=== PATIENT | female | born 1965 | race Caucasian/White ===

== ENCOUNTER 2017-11-27 07:59 | Day surgery (SDC) | payer OTHER, SELFPAY ==
--- NOTE | 2017-11-26 18:22 | PCM.HP.BLA ---
History and Physical Date of Admission: 11/27/17 Referring Provider: Nikko Poole MD Primary Provider: Everton Acevedo DO CC: evaluation painful infected lipoma scar upper back/posterior neck with underlying hematoma. History of Present Illness: 52-year-old woman initially presented with a painful soft tissue mass on her upper back/posterior neck area that has increased in size over the last several months. She denies any trauma. Denies any recent infection. It is painful when she bumps it. She denies any recent fever. Due to its large size and its painful symptomatology, operative excision was recommended which was done on 09/23/17. Postop she developed persistent redness and swelling and pain in the scar area. Clinically it appeared she may have a small seroma present. She continued her Cleocin. She was sent for Ultrasound guided drainage of the possible seroma. About 18 ml was removed. Some improvement was noted. Fluid was sent for culture which showed MRSE. It was sensitive to Levaquin and resistant to Cleocin. The Cleocin was stopped and she will be starting Levaquin. However her symptomatology persisted. Another Ultrasound guided drainage was recommended. However the second time, they could not appreciate any drainable fluid at this time. There was a suggestion of a hematoma. I recommended to the patient, that the conservative measures weren't healing the incision up quick enough. There was concern that the hematoma would become infected so operative drainage was recommended. Past Medical History: seasonal allergies arthritis asthma Bladder - OAB breast lump or cyst cataract carpal tunnel syndrome depression gastrointestinal problems headaches/migraines hearing problems hives recurrent infections IBS osteoarthritis pneumonia polycystic ovary vision problems psoriasis bloating mass on neck spinal stenosis - multiple back issues leg weakness infected seroma upper back and posterior back pain toward the left chest wall. painful infected hematoma upper back/posterior neck Past Surgical History: deviated septum adenoids, tonsils 1975 bilateral breast reduction 2013 complete hysterectomy with BSO 2015 holes drilled in sinus turbinates 2015 bilateral carpal tunnel 2016 cataract L & R, l toric lens replacement 2016 radiofrequency ablation 2017 09/23/17 - Excision 8 cm painful soft tissue mass upper back/posterior neck. MEDICATIONS: Albuterol. Ventolin. Vitamin B12. Colace. Calcium. Fluticasone. Myrbetriq. Diclofenac. Taltz. Baclofen. Premarin. Lyrica. Budeprion. Linzess. Carvedilol. Fluoxetine. Wellbutrin. Remeron. ALLERGIES: Nabumetone. Dust. Thimerosal. Smoke. Percocet. Naproxen. Family History Summary: Father (biol.) - Has Family History of Hypertension Mother (biol.) - Has Family History of Arthritis Mother (biol.) - Has Family History of Hypertension Mother (biol.) - Has Family History of Other Cancer PGF - Has Family History of Alcoholism PGM - Has Family History of Alcoholism MGF - Has Family History of Depression MGF - Has Family History of Psychiatric Care MGF - Has Family History of Other Cancer MGM - Has Family History of Osteoporosis MGF - Has Family History of Stroke/CVA Aunt - Has Family History of Diabetes Brother (full) - Has Family History of Alcoholism General Comments - FH: severe allergies positive for skin cancer severe allergies Social History: Reviewed history and no changes required: patient does not smoke. patient does not drink alcohol. Risk Factors: Smoked Tobacco Use: Never smoker Smokeless Tobacco Use: Never Passive smoke exposure: no Drug use: no HIV high-risk behavior: no Caffeine use: 0 drinks per day Alcohol use: no Exercise: yes Type of Exercise: swim and walking Seatbelt use: 100 % Sun Exposure: frequently Family History Risk Factors: Family History of PA in females < 65 years old: no Family History of PA in males < 55 years old: no Dietary Counseling: yes Review of Systems General-denies fever and weight loss. Has some fatigue. Ear nose and throat-has chronic sinus problems. Denies nasal congestion. Denies sore throat. Eyes-denies eye pain. Has cataracts. Endocrine-denies excessive thirst or urination. Skin-had recent excision soft tissue mass in her upper back/posterior neck area. Has a family history of skin cancer. Now has persistent redness and pain over the incision. Ultrasound guided drainage was done and the fluid removed was sent for culture. It showed KALEN and her antbiotics were changed to Levaquin. Musculoskeletal-has joint pain, joint stiffness, weakness of muscles and joints, back pain, and arthritis. Neurologic-has headaches. Cardiovascular-denies chest pain. Has some fatigue. Denies shortness of breath with exertion. Psychiatric-denies anxiety. Has depression. Respiratory-has some shortness of breath. His chronic cough. Has obstructive sleep apnea. Has asthma. Has history of pneumonia. Gastrointestinal-denies nausea, vomiting, and diarrhea. Has constipation. Hematologic-denies abnormal bruising. Denies bleeding. Genitourinary-has urinary frequency. Denies hematuria. Has incontinence. Vital Signs: Patient Profile: 51 Years Old Female Height: 63.75 inches Weight: 260.6 pounds BMI: 45.08 BSA: 2.18 Physical Exam: General-well developed, well nourished, in no acute distress. HEENT-pupils equal round reactive to light. Extraocular muscles intact. Throat is clear. No suspicious lesions noted. Neck-supple, nontender. No cervical adenopathy. Lungs-clear to auscultation. Heart-regular rate and rhythm. Abdomen-soft and nondistended. Extremities-full range of motion. No axillary adenopathy. No suspicious lesions noted. Back-no bony tenderness. There is a vertical scar in the upper back near the posterior neck. Residual redness seen. No fluctuance. No purulent drainage noted. Mild tenderness to palpation. Midline scar measures about 10 cm and extends onto the posterior neck. Neuro-cranial nerves II through XII grossly intact. Assessment and Plan Assessment 1. Painful infected lipoma scar upper back/posterior neck. 2. Infected hematoma upper back/posterior neck. 3. Family history of skin cancer. 4. MRSE. Plan Recommend incision and drainage and excisional debridement on this painful infected hematoma upper back/posterior neck area. Will leave the wound open and proceed initially with a Betadine dressing. The VAC can be applied the next day. Also I may use Zhanna absorbable hemostat to minimize seroma formation during the time of surgery as well. We will also place a compression dressing as well. Surgery will be done under general anesthesia with a surgical observation overnight stay in the hospital. The patient was informed of the risks and complications of the procedure including alternatives to surgery. These were discussed with the patient personally. The patient voices understanding and wishes to proceed. Some of the risks and complications were included in a form from the [employer] [employer].
[2017-11-27] VITALS (15 sets, daily range): BP systolic 110–156; BP diastolic 53–96; PULSE 60–94; RESP 16–20; TEMP 36.1–37.4; O2SAT 71–100; BMI 41.4
--- NOTE | 2017-11-27 09:25 | MISC_PTH ---
PATIENT: GAY SHAFER LOC: [facility] [place] U#:[id number] AGE/SX: 52/F ROOM: RE11/27/[address]: Dr. Bonilla Alvarez MD : 1965 BED: DIS: 11/29/2017 SPEC #: [id number] RECD: 11/28/17 10:35 STATUS: CURTIS EDI #: [id number] ISRAEL: 11/27/17 09:[address]: Bonilla Alvarez DEPT: SURGICAL PATHOLOGY RECD BY: Nikko Bo ENTERED: 11/28/17 13:03 SP TYPE: [facility] [place] OTHR DR: Dr. Everton Acevedo DO Tissues: TISSUE SURGICALLY REMOVED Procedures: Special Stain Group I Surgery Specimen Level IV AFB Stain (control) GMS Stain (control) HEADER OPERATION: I & D, excisional debridement hematoma, posterior thorax PRE-OP DIAGNOSIS: Infected hematoma scar upper back/posterior neck TISSUE SUBMITTED: Infected hematoma scar upper back/posterior neck MICROSCOPIC DIAGNOSIS Hematoma/scar of back-posterior neck, excision: Granulation, fibrinoid material, acute and chronic inflammation and fibrosis. Negative for acid-fast bacilli and fungal organisms. Foreign body giant cell reaction to polarizable material. AM:cait 12/01/17 GROSS DIAGNOSIS AFB and GMS stains with matched controls were used in the evaluation of this case. MICROSCOPIC DESCRIPTION Slides are reviewed. GROSS DESCRIPTION Received in fixative is one container labeled with the patient's name and designated infected hematoma. The specimen consists of three irregular and indurated fragments of pink-yellow fibrofatty tissue. The larger fragment contains an ellipse of skin measuring 10 x 2 cm and containing a well-healed scar. Serial sections do not reveal mass lesions. Lace Mender sections are submitted in two cassettes. / AM:cait 11/28/17 TC:2 CPT: 29584, 97564 x2
--- NOTE | 2017-11-27 10:50 | OP.PN_ITS ---
Immediate Post-Op Note Date of Procedure: 11/27/17 Primary Surgeon/Physician: Bonilla Alvarez construction or leak gang laborer: None Pre-Operative Diagnosis: 1. Painful infected lipoma scar upper back/posterior neck. 2. Infected hematoma upper back/posterior neck. 3. Family history of skin cancer. 4. MRSE. Post-Operative Diagnosis: Same. Surgery/Procedure Performed:: Surgical preparation upper back/posterior neck with incision and drainage and excisional debridement infected hematoma (66 cm2) . Description of Surgical Findings:: 52-year-old woman initially presented with a painful soft tissue mass on her upper back/posterior neck area that has increased in size over the last several months. She denies any trauma. Denies any recent infection. It is painful when she bumps it. She denies any recent fever. Due to its large size and its painful symptomatology, operative excision was recommended which was done on . Postop she developed persistent redness and swelling and pain in the scar area. Clinically it appeared she may have a small seroma present. She continued her Cleocin. She was sent for Ultrasound guided drainage of the possible seroma. About 18 ml was removed. Some improvement was noted. Fluid was sent for culture which showed MRSE. It was sensitive to Levaquin and resistant to Cleocin. The Cleocin was stopped and she will be starting Levaquin. However her symptomatology persisted. Another Ultrasound guided drainage was recommended. However the second time, they could not appreciate any drainable fluid at this time. There was a suggestion of a hematoma. I recommended to the patient, that the conservative measures weren't healing the incision up quick enough. There was concern that the hematoma would become infected so operative drainage was recommended. Today the patient underwent surgical preparation upper back/posterior neck with incision and drainage and excisional debridement infected hematoma (66 cm2). Size of defect upper back - 11 x 6 x 5 cm. Estimated Blood Loss: 50 ml. Specimen's removed: 1. Infected hematoma upper back/posterior neck to Pathology and Microbiology. 2. Infected hematoma upper back/posterior neck MRSA DNA PCR swab culture. Drains: None. Type of Anesthesia:: General - Admit VTE Documentation VTE Present on Admission: No VTE Mechan Device Prophylaxis: SCD's VTE Pharm Prophylaxis ordered?: No
[2017-11-27 13:09] LABS: M R Staph aureus DNA By PCR Negative (Negative); Probe Check PASS; Specimen Processing Control PASS; Staph aureus DNA By PCR NEGATIVE (Negative)
[2017-11-27] MEDS: Baclofen 10 MG Tablet PO ×2 (14:02→16:30)
[2017-11-27] MEDS: Pregabalin 50 MG Capsule PO ×2 (14:02→21:04)
[2017-11-27] MEDS: HYDROmorphone 2 MG TABLET PO (14:28)
[2017-11-27] MEDS: Diclofenac 75 MG Tablet PO (16:30)
--- NOTE | 2017-11-27 16:35 | CPS ---
PT BROUGHT OWN BIPAP , R.T. SET THIS UP FOR PT.
--- NOTE | 2017-11-27 18:18 | PCM.OPRPT ---
Report of Operation Date of Procedure: 11/27/17 Pre-Operative Diagnosis: 1. Painful infected lipoma scar upper back/posterior neck. 2. Infected hematoma upper back/posterior neck. 3. Family history of skin cancer. 4. MRSE. Post-Operative Diagnosis: Same. Surgery/Procedure Performed:: Surgical preparation upper back/posterior neck with incision and drainage and excisional debridement infected hematoma (66 cm2). Description of Surgical Findings:: 52-year-old woman initially presented with a painful soft tissue mass on her upper back/posterior neck area that has increased in size over the last several months. She denies any trauma. Denies any recent infection. It is painful when she bumps it. She denies any recent fever. Due to its large size and its painful symptomatology, operative excision was recommended which was done on 09/23/17. Postop she developed persistent redness and swelling and pain in the scar area. Clinically it appeared she may have a small seroma present. She continued her Cleocin. She was sent for Ultrasound guided drainage of the possible seroma. About 18 ml was removed. Some improvement was noted. Fluid was sent for culture which showed MRSE. It was sensitive to Levaquin and resistant to Cleocin. The Cleocin was stopped and she will be starting Levaquin. However her symptomatology persisted. Another Ultrasound guided drainage was recommended. However the second time, they could not appreciate any drainable fluid at this time. There was a suggestion of a hematoma. I recommended to the patient, that the conservative measures weren't healing the incision up quick enough. There was concern that the hematoma would become infected so operative drainage was recommended. The patient was informed of the risks and complications of the procedure including alternatives to surgery. These were discussed with the patient personally. The patient voices understanding and wishes to proceed. Some of the risks and complications were included in a form from the [employer]. Size of defect upper back - 11 x 6 x 5 cm. 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 Infected hematoma upper back/posterior neck to Pathology and Microbiology. 2. Infected hematoma upper back/posterior neck MRSA DNA PCR swab culture. Drains: None. Estimated Blood Loss (mL): 50 ml. Description of Procedure: Patient was taken to OR in supine position and was placed under general anesthesia. She was then placed in the prone position as her upper back and posterior neck were prepped and draped in the usual fashion. SCD's were placed for DVT prophylaxis. Perioperative antibiotics were given intravenously. The previous incision was infiltrated with xylocaine with epinephrine. After waiting 5 minutes for the anesthetic to take effect, I proceeded with incision and drainage through the skin until the hematoma cavity was seen. There was a small residual hematoma present with some milky tissue present suggestive of infection. A lot of scar tissue present in the form of a postop capsule was sharply debrided and excised. Some residual seroma fluid was also present and drained. Some of the tissue was sent to Microbiology for culture. A positive culture may necessitate antibiotic modification. A swab culture was also taken as a DNA PCR to check for MRSA. The rest of the tissue was sent to Pathology for analysis to rule out carcinoma. The wound was irrigated with saline. Hemostasis was obtained with electrocautery. The size of the wound after incision and drainage and excisional debridement of this infected hematoma was 11 x 6 x 5 cm. The wound was dressed with Mepitel nonadherent dressing followed by Kerlix gauze with Betadine followed by dry Kerlix gauze and ABD pads for a compression dressing. Patient tolerated the procedure well and was sent to PACU in satisfactory condition. She will be sent upstairs for a surgical observation overnight stay in the hospital. The VAC will be placed tomorrow. When she is tolerating po analgesia and after the VAC is approved, she can then go home. [facility] She will be sent home on antibiotics and pain medication. If there is a plateau in the healing process, can proceed with delayed closure with skin grafting. Grafts/Implants Used: None. - Complications None. - Admit VTE Documentation VTE Present on Admission: No VTE Mechan Device Prophylaxis: SCD's VTE Pharm Prophylaxis ordered?: No Code Visit Surgery Charges CPT - 10175 ICD-10 - L76.31, T81.4xxA, D17.1, Z80.8 57262 L76.31, T81.4xxA, D17.1, Z80.8
[2017-11-27] MEDS: Budesonide Respules 0.5 MG/2 ML AMPUL.NEB. INHALATION (19:16)
[2017-11-27] MEDS: Albuterol 2.5 MG/3 ML VIAL.NEB. INHALATION (19:16)
[2017-11-27] MEDS: Mirtazapine 15 MG Tablet 22.5 MG PO (21:05)
[2017-11-28] VITALS (9 sets, daily range): BP systolic 108–136; BP diastolic 63–85; PULSE 71–90; RESP 16–21; TEMP 36.6–37; O2SAT 95–99
[2017-11-28] MEDS: Pregabalin 50 MG Capsule PO ×3 (05:08→22:10)
[2017-11-28 07:00] LABS: Hemoglobin 9.7 g/dl (12.0-15.0); Mean Corp Hgb Conc 30.3 g/gl (32-36); Mean Corpuscular Hgb 29.4 pg (27.0-32.0); Mean Platelet Vol. 10.6 fl (6.2-12.0); Platelet Count 235 K/mm3 (150-450); RBC Distribution Width SD 47.7 fl (35.1-43.9); White Blood Count 5.8 K/mm3 (4.4-11.0)
[2017-11-28 07:11] LABS: Scan Indicated on CBC? Y/N NO
[2017-11-28 07:20] LABS: Anion Gap 9 (5-15); BUN 20 mg/dL (7-18); BUN/Creat Ratio 26.3 RATIO (10-20); Calcium,Total 7.8 mg/dL (8.5-10.1); Chloride 109 mmol/L (98-107); Creatinine, Serum 0.76 mg/dL (0.55-1.02); EST Glomerular Filtration Rate 85 mL/min (>60); Est Glom Filt Rate - Afr Amer 102 mL/min (>60); Estimated Creatinine Clearance 83.25 ml/min; Glucose 93 mg/dL (70-110); Potassium 4.1 mmol/L (3.5-5.1); Prealbumin 22.4 mg/dL (20.0-40.0); Sodium Level 143 mmol/L (136-145)
[2017-11-28] MEDS: Diclofenac 75 MG Tablet PO ×2 (07:45→16:31)
[2017-11-28] MEDS: Calcium Carb/Vitamin D 1 TABLET Tablet PO (07:46)
[2017-11-28] MEDS: FLUoxetine 20 MG Capsule 40 MG PO (07:46)
[2017-11-28] MEDS: Baclofen 10 MG Tablet PO ×3 (07:46→16:30)
[2017-11-28] MEDS: Pyridoxine HCl 100 MG Tablet PO (07:47)
[2017-11-28] MEDS: HYDROmorphone 2 MG TABLET PO ×2 (07:56→11:58)
--- NOTE | 2017-11-28 09:00 | NURSING ---
wound photo: mid upper back
[2017-11-28] MEDS: Budesonide Respules 0.5 MG/2 ML AMPUL.NEB. INHALATION ×2 (09:21→18:56)
[2017-11-28] MEDS: Albuterol 2.5 MG/3 ML VIAL.NEB. INHALATION ×3 (09:21→18:55)
[2017-11-28] MEDS: Mirabegron 25 MG TAB.ER.24H PO (09:49)
--- NOTE | 2017-11-28 13:20 | PCM.RX.CS ---
Subjective/Objective Date: 11/28/17 Time: 13:20 Antibiotic: Vancomycin Type of Consult: New start Indications for Therapy: Skin/Soft Tissue Labs: Sodium 143 mmol/L (136-145) 11/28/17 05:54 Potassium 4.1 mmol/L (3.5-5.1) 11/28/17 05:54 Chloride 109 mmol/L (98-107) H 11/28/17 05:54 Carbon Dioxide 25.0 mmol/L (21.0-32.0) 11/28/17 05:54 Anion Gap 9 (5-15) 11/28/17 05:54 BUN 20 mg/dL (7-18) H 11/28/17 05:54 Creatinine 0.76 mg/dL (0.55-1.02) 11/28/17 05:54 Est GFR (MDRD) Af Amer 102 mL/min (>60) 11/28/17 05:54 Est GFR (MDRD) Non-Af 85 mL/min (>60) 11/28/17 05:54 BUN/Creatinine Ratio 26.3 RATIO (10-20) H 11/28/17 05:54 Glucose 93 mg/dL (70-110) 11/28/17 05:54 Pharmacy Plan for Drug Dosing: Goal vancomycin trough 10-15 mcg/mL. Recommend vancomycin 1250mg IV q12h after 1500mg IV loading dose for est trough 12 mcg/mL. Check prior to 5th dose. Pharmacy Service will continue to monitor and adjust dosing as required. Pharmacy to order these labs: Trough - Vancomycin Labs to be done on (date): 11/30/17 Labs to be done (time): 10:00
--- NOTE | 2017-11-28 13:36 | CASEMGMT ---
IRMA GOLDSMITH received notice that patient will be needing HHC for Wound Vac dressing changes. IRMA GOLDSMITH spoke with patient regarding HHC and preferred HHC company. IRMA GOLDSMITH provided list of HHC companies in network with her insurance. Patient stated her choice for HHC is [facility]. Confirmed with wound nurse that start of care would need to be on Friday for 1st wound vac dressing change. IRMA GOLDSMITH sent a referral to [facility] and am awaiting call back for acceptance. IRMA GOLDSMITH will continue to follow this patient and plan for safe discharge.
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
--- NOTE | 2017-11-28 17:19 | OP.PCM_ITS ---
Report of Operation Date of Procedure: 11/27/17 Pre-Operative Diagnosis: 1. Painful infected lipoma scar upper back/posterior neck. 2. Infected hematoma upper back/posterior neck. 3. Family history of skin cancer. 4. MRSE. Post-Operative Diagnosis: Same. Surgery/Procedure Performed:: Surgical preparation upper back/posterior neck with incision and drainage and excisional debridement infected hematoma (66 cm2) . Description of Surgical Findings:: 52-year-old woman initially presented with a painful soft tissue mass on her upper back/posterior neck area that has increased in size over the last several months. She denies any trauma. Denies any recent infection. It is painful when she bumps it. She denies any recent fever. Due to its large size and its painful symptomatology, operative excision was recommended which was done on . Postop she developed persistent redness and swelling and pain in the scar area. Clinically it appeared she may have a small seroma present. She continued her Cleocin. She was sent for Ultrasound guided drainage of the possible seroma. About 18 ml was removed. Some improvement was noted. Fluid was sent for culture which showed MRSE. It was sensitive to Levaquin and resistant to Cleocin. The Cleocin was stopped and she will be starting Levaquin. However her symptomatology persisted. Another Ultrasound guided drainage was recommended. However the second time, they could not appreciate any drainable fluid at this time. There was a suggestion of a hematoma. I recommended to the patient, that the conservative measures weren't healing the incision up quick enough. There was concern that the hematoma would become infected so operative drainage was recommended. The patient was informed of the risks and complications of the procedure including alternatives to surgery. These were discussed with the patient personally. The patient voices understanding and wishes to proceed. Some of the risks and complications were included in a form from the [employer] [employer]. Size of defect upper back - 11 x 6 x 5 cm. 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 Infected hematoma upper back/posterior neck to Pathology and Microbiology. 2. Infected hematoma upper back/posterior neck MRSA DNA PCR swab culture. Drains: None. Estimated Blood Loss (mL): 50 ml. Description of Procedure: Patient was taken to OR in supine position and was placed under general anesthesia. She was then placed in the prone position as her upper back and posterior neck were prepped and draped in the usual fashion. SCD's were placed for DVT prophylaxis. Perioperative antibiotics were given intravenously. The previous incision was infiltrated with xylocaine with epinephrine. After waiting 5 minutes for the anesthetic to take effect, I proceeded with incision and drainage through the skin until the hematoma cavity was seen. There was a small residual hematoma present with some milky tissue present suggestive of infection. A lot of scar tissue present in the form of a postop capsule was sharply debrided and excised. Some residual seroma fluid was also present and drained. Some of the tissue was sent to Microbiology for culture. A positive culture may necessitate antibiotic modification. A swab culture was also taken as a DNA PCR to check for MRSA. The rest of the tissue was sent to Pathology for analysis to rule out carcinoma. The wound was irrigated with saline. Hemostasis was obtained with electrocautery. The size of the wound after incision and drainage and excisional debridement of this infected hematoma was 11 x 6 x 5 cm. The wound was dressed with Mepitel nonadherent dressing followed by Kerlix gauze with Betadine followed by dry Kerlix gauze and ABD pads for a compression dressing. Patient tolerated the procedure well and was sent to PACU in satisfactory condition. She will be sent upstairs for a surgical observation overnight stay in the hospital. The VAC will be placed tomorrow. When she is tolerating po analgesia and after the VAC is approved, she can then go home. She [facility]. She will be sent home on antibiotics and pain medication. If there is a plateau in the healing process, can proceed with delayed closure with skin grafting. Grafts/Implants Used: None. - Complications None. - Admit VTE Documentation VTE Present on Admission: No VTE Mechan Device Prophylaxis: SCD's VTE Pharm Prophylaxis ordered?: No Code Visit Surgery Charges CPT - 53029 ICD-10 - L76.31, T81.4xxA, D17.1, Z80.8 10077 L76.31, T81.4xxA, D17.1, Z80.8
--- NOTE | 2017-11-28 17:47 | PCM.PN.SRG ---
Subjective: Postop #1 Patient has wound pain and increased pain from the suction from the VAC. Still needs IV analgesia. - Physical Exam General: Alert, Oriented x3 HEENT: PERRLA, EOMI Neck: Supple Lungs: Clear to auscultation Cardiovascular: Regular rate, Regular Rhythm Abdomen: Soft, Non-Distended Extremities: No clubbing, No cyanosis, No edema Skin: Ulcer/ Wound - upper back/posterior neck wound stable. No bleeding seen. VAC applied. Quite painful. Neurological: Cranial nerves II-XII grossly intact Psych/Mental Status: Normal Affect, Appropriate Vital Signs Temp Pulse Resp BP Pulse Ox 98.4 F 90 21 H 136/84 H 99 11/28/17 11:53 11/28/17 15:36 11/28/17 15:36 11/28/17 11:53 11/28/17 11:53 Oxygen Flow Rate 4 Oxygen Delivery Method Room Air Weight: 264 lb 8.875 oz Body Mass Index (BMI) 41.4 Intake and Output for Last 24 Hours 11/26/17 11/27/17 11/28/17 23:59 23:59 23:59 Intake Total 2972 / 2972 657 / 657 Balance 2972 / 2972 657 / 657 Microbiology Past 72 Hours 11/27/17 11:10 Gram Stain - Final Wound - Other Wound Culture - Preliminary No growth-Final to follow 11/27/17 11:10 Gram Stain - Final Wound - Other Wound Culture - Preliminary No growth-Final to follow Laboratory Tests Past 24 Hrs 11/28/17 11/28/17 05:54 05:54 WBC 5.8 RBC 3.30 L Hgb 9.7 L Hct 32.0 L MCV 97.0 MCH 29.4 MCHC 30.3 L RDW 14.0 RDW Differential 47.7 H Plt Count 235 MPV 10.6 Sodium 143 Potassium 4.1 Chloride 109 H Carbon Dioxide 25.0 Anion Gap 9 BUN 20 H Creatinine 0.76 Estim Creat Clear Calc 83.25 Est GFR (MDRD) Af Amer 102 Est GFR (MDRD) Non-Af 85 BUN/Creatinine Ratio 26.3 H Glucose 93 Calcium 7.8 L Prealbumin 22.4 Assessment/Plan 1. Painful infected lipoma scar upper back/posterior neck. 2. Infected hematoma upper back/posterior neck, s/p I&D and debridement. 3. Family history of skin cancer. 4. MRSE. 5. Anemia of chronic disease, acute on chronic. VAC applied today. Quite painful. Still needs IV analgesia. Anticipate discharge tomorrow when tolerating po analgesia. Continue Vancomycin for the MRSE. Operative culture is pending. Prealbumin was 22.4. Encourage nutritional supplementation with protein to help the healing process. Hgb little low at 9.7. Anemia of chronic disease. Combination of some operative blood loss and IV dilution. Will send home on Iron supplements. Can followup with her PCP in 4 weeks for further evaluation. After discharge followup at the Wound Center.
[2017-11-28] MEDS: 0.9% NaCl Peripheral Flush Adult/Peds IV (20:38)
[2017-11-28] MEDS: Mirtazapine 15 MG Tablet 22.5 MG PO (22:11)
[2017-11-29] MEDS: 0.9% NaCl Peripheral Flush Adult/Peds IV ×2 (00:43→04:50)
[2017-11-29 04:30] VITALS: BP 134/59; PULSE 65; RESP 20; TEMP 36.6; O2SAT 98
[2017-11-29] MEDS: Pregabalin 50 MG Capsule PO ×2 (05:02→14:13)
[2017-11-29 07:10] VITALS: PULSE 80; RESP 16; O2SAT 97
[2017-11-29] MEDS: Budesonide Respules 0.5 MG/2 ML AMPUL.NEB. INHALATION (07:10)
[2017-11-29] MEDS: Albuterol 2.5 MG/3 ML VIAL.NEB. INHALATION ×3 (07:10→13:27)
[2017-11-29 07:37] LABS: Hematocrit 32.3 % (37-47); Hemoglobin 9.9 g/dl (12.0-15.0); Mean Corp Hgb Conc 30.7 g/gl (32-36); Mean Corpuscular Hgb 29.4 pg (27.0-32.0); Mean Corpuscular Volume 95.8 fL (81-99); Mean Platelet Vol. 10.2 fl (6.2-12.0); Platelet Count 228 K/mm3 (150-450); RBC Distribution Width CV 14.1 % (11.6-14.6); RBC Distribution Width SD 48.6 fl (35.1-43.9); Red Blood Count 3.37 M/mm3 (4.2-5.4); White Blood Count 4.8 K/mm3 (4.4-11.0)
[2017-11-29 07:51] LABS: Scan Indicated on CBC? Y/N NO
[2017-11-29 07:52] LABS: Anion Gap 6 (5-15); BUN 20 mg/dL (7-18); BUN/Creat Ratio 29.9 RATIO (10-20); Calcium,Total 7.9 mg/dL (8.5-10.1); Chloride 109 mmol/L (98-107); Creatinine, Serum 0.67 mg/dL (0.55-1.02); EST Glomerular Filtration Rate 98 mL/min (>60); Est Glom Filt Rate - Afr Amer 119 mL/min (>60); Estimated Creatinine Clearance 94.43 ml/min; Glucose 92 mg/dL (70-110); Potassium 4.2 mmol/L (3.5-5.1); Sodium Level 144 mmol/L (136-145)
[2017-11-29] MEDS: Diclofenac 75 MG Tablet PO (08:35)
[2017-11-29] MEDS: Baclofen 10 MG Tablet PO ×2 (08:36→12:33)
[2017-11-29] MEDS: Calcium Carb/Vitamin D 1 TABLET Tablet PO (08:36)
--- NOTE | 2017-11-29 10:08 | PN.SURG_ITS ---
Subjective: Postop #2 Patient is resting comfortably. Does have some periwound itching intermittently. She is tolerating po analgesia and is anxious to go home. - Physical Exam General: Alert, Oriented x3 HEENT: PERRLA, EOMI Neck: Supple Lungs: Clear to auscultation Cardiovascular: Regular rate, Regular Rhythm Abdomen: Soft, Non-Distended Skin: Ulcer/ Wound - upper back/posterior neck wound is stable. VAC in place. Minimal drainage in the canister. Neurological: Cranial nerves II-XII grossly intact Psych/Mental Status: Normal Affect, Appropriate Vital Signs Temp Pulse Resp BP Pulse Ox 97.8 F 80 16 134/59 H 97 11/29/17 04:30 11/29/17 07:10 11/29/17 07:10 11/29/17 04:30 11/29/17 07:10 Oxygen Flow Rate 4 Oxygen Delivery Method Room Air Weight: 264 lb 8.875 oz Body Mass Index (BMI) 41.4 Intake and Output for Last 24 Hours 11/27/17 11/28/17 11/29/17 23:59 23:59 23:59 Intake Total 2972 / 2972 707 / 707 313 / 313 Balance 2972 / 2972 707 / 707 313 / 313 Microbiology Past 72 Hours 11/27/17 11:10 Gram Stain - Final Wound - Other Wound Culture - Final No growth aerobically. 11/27/17 11:10 Gram Stain - Final Wound - Other Wound Culture - Final No growth aerobically. Laboratory Tests Past 24 Hrs 11/29/17 11/29/17 06:25 06:25 WBC 4.8 RBC 3.37 L Hgb 9.9 L Hct 32.3 L MCV 95.8 MCH 29.4 MCHC 30.7 L RDW 14.1 RDW Differential 48.6 H Plt Count 228 MPV 10.2 Sodium 144 Potassium 4.2 Chloride 109 H Carbon Dioxide 29.0 Anion Gap 6 BUN 20 H Creatinine 0.67 Estim Creat Clear Calc 94.43 Est GFR (MDRD) Af Amer 119 Est GFR (MDRD) Non-Af 98 BUN/Creatinine Ratio 29.9 H Glucose 92 Calcium 7.9 L Assessment/Plan 1. Painful infected lipoma scar upper back/posterior neck. 2. Infected hematoma upper back/posterior neck, s/p I&D and debridement. 3. Family history of skin cancer. 4. MRSE. 5. Anemia of chronic disease, acute on chronic. 6. Periwound itching. VAC in place. Minimal drainage in the canister. Tolerating po analgesia. Home Health to assist with the VAC three times per week at 150 mmHg continuous suction. Continue Vancomycin for the MRSE. Operative culture is pending. Will send home on Levaquin for 14 days (2 refills). Prealbumin was 22.4. Encourage nutritional supplementation with protein to help the healing process. Hgb stable at 9.9. Anemia of chronic disease. Combination of some operative blood loss and IV dilution. Will send home on Iron supplements. Can followup with her PCP in 4 weeks for further evaluation. Wrote scripts for Dilaudid for pain (60 tabs) and for Valium for spasm (30 tabs) . Wrote script for Atarax for itching. Wrote script for Iron supplementation (30 tabs) and 2 refills. Wrote script for Phenergan for nausea (30 tabs) and a refill. Discharge home today. After discharge followup at the Wound Center.
--- NOTE | 2017-11-29 10:22 | PCM.DC ---
- Discharge Diagnoses Current Active Problems: Current Active and Chronic Problems (Last Updated 11/10/17 @ 14:38 by Bonilla Alvarez MD) Complication, postoperative infection (Acute) Open wound of back wall of thorax without penetration into thoracic cavity (Acute) Postoperative hematoma of subcutaneous tissue following dermatologic procedure (Acute) You will use the following diet at home:: No restrictions, Other - encourage nutritional supplementation with protein to help the healing process. Discharge Activity: May not drive while taking narcotic pain medications., May Shower - on the days the vac is changed., - - no heavy lifting. keep head elevated. May shower in (days): 2 - may shower on the days the vac is changed. May resume sexual activity in: No Restrictions Weight Bearing Status: Weight bearing as tolerated Lifting Restrictions: 20 lbs. Keep extremity elevated above heart level: - - elevate head. Additional Activity Instructions:: Home Health to assist with the vac changes three times per week at 150 mmHg continuous suction. May wash the wound and periwound with soap and water at the time of the vac dressing change. Call your doctor if your incision/area has: Continuous Slow Oozing, Sudden Increased Bleeding, Increased Pain/ Swelling, Increased Redness, Foul Smelling Discharge, Swelling at the incision site Call your doctor if you observe: Fever of 101 or Higher, Coldness, Increased Pain, Shortness of breath, Chest pain, Calf discomfort, Uncontrolled pain Suture Line Care: - - vac changes three times per week. Change Dressing in (Days):: 2 - vac changes three times per week. Cleanse incision/area with: Soap & Water - may cleanse the wound and periwound with soap and water at the time of the vac dressing change., - - may shower on the days the vac is changed. Allergies/Adverse Reactions: Allergies nabumetone Allergy (Verified 11/26/17 14:52) Hives thimerosal Allergy (Verified 11/26/17 14:52) Other PER ALLERGY TESTING acetaminophen [From Percocet] Adverse Reaction (Verified 11/26/17 14:52) Other naproxen [From Naprosyn] Adverse Reaction (Verified 11/26/17 14:52) Other oxycodone HCl [From Percocet] Adverse Reaction (Verified 11/26/17 14:52) Other Medications to take at Discharge Albuterol Aerosols [Ventolin Aerosols] 2.5 mg INHALATION Q2H PRN PRN 09/22/17 Albuterol Inhaler [Ventolin Hfa] 2 puff INHALATION Q4H PRN PRN 09/22/17 Baclofen [Lioresal] 10 mg PO TID 09/22/17 BuPROPion (SR) [Wellbutrin Sr] 150 mg PO BID 09/22/17 Calcium Carbonate/Vitamin D3 [Calcium 500-Vit D3 200 Tablet] 1 ea PO DAILY 09/22/17 Diclofenac Sodium 100 gm TP 4X/DAY 09/22/17 Diclofenac [Voltaren] 75 mg PO BIDCM 09/22/17 Econazole [Spectazole] 1 applic TOPICAL DAILY 09/22/17 Estrogens, Conjugated [Premarin] 0.9 mg PO DAILY 09/22/17 Fluoxetine [Prozac] 40 mg PO DAILY 09/22/17 Linaclotide [Linzess] 290 mcg PO DAILY 09/22/17 Mirabegron [Myrbetriq] 25 mg PO DAILY 09/22/17 Mirtazapine [Remeron] 22 mg PO QHS 09/22/17 Pregabalin [Lyrica] 50 mg PO TID 09/22/17 Pyridoxine HCl [Vitamin B-6] 100 mg PO DAILY 09/22/17 Fluticasone/Salmeterol [Advair 250/50 Mcg Diskus] 1 puff INHALATION BID 11/26/17 Albuterol Aerosols [Ventolin Aerosols] 2.5 mg INHALATION Q6HWA.RT vial.neb. 11/29/17 Budesonide Aerosol [Pulmicort Respules] 0.5 mg INHALATION Q12H.RT ampul.neb. 11/29/17 Diazepam [Valium] 5 mg PO 4X/DAY PRN PRN 7 Days #30 tab 11/29/17 Docusate Sodium [Colace] 100 mg PO BID capsule 11/29/17 HydrOXYzine [Atarax] 10 mg PO TID PRN PRN #60 tab 11/29/17 HydromorphONE [Dilaudid] 2 - 4 mg PO 4X/DAY PRN PRN 7 Days #60 tab 11/29/17 Iron Polysaccharide Complex [Ferrex 150] 150 mg PO DAILYCM #30 cap 11/29/17 Iron Polysaccharide Complex [Ferrex 150] 150 mg PO DAILYCM #30 cap 11/29/17 Lactobacillus Combo No.11 [Probiotic] 1 ea PO DAILY #60 cap.sprink 11/29/17 Levofloxacin [Levaquin] 500 mg PO DAILY #14 tab 11/29/17 ProMETHAzine [Phenergan] 25 mg PO 4X/DAY PRN PRN #30 tab 11/29/17 The following prescriptions were given: Diazepam [Valium] 5 mg PO 4X/DAY PRN PRN 7 Days #30 tab PRN Reason: Spasms HydromorphONE [Dilaudid] 2 - 4 mg PO 4X/DAY PRN PRN 7 Days #60 tab PRN Reason: Severe Pain (-08/12) HydrOXYzine [Atarax] 10 mg PO TID PRN PRN #60 tab PRN Reason: Itching Iron Polysaccharide Complex [Ferrex 150] 150 mg PO DAILYCM #30 cap Iron Polysaccharide Complex [Ferrex 150] 150 mg PO DAILYCM #30 cap Lactobacillus Combo No.11 [Probiotic] 1 ea PO DAILY #60 cap.sprink Levofloxacin [Levaquin] 500 mg PO DAILY #14 tab ProMETHAzine [Phenergan] 25 mg PO 4X/DAY PRN PRN #30 tab PRN Reason: NAUSEA/VOMITING Primary Care Physician: Everton Acevedo DO [Primary Care Provider] - Please follow up with your Primary Care Physician in: 4 weeks to evaluate her chronic anemia. Please Follow Up With: Bonilla Alvarez MD When: 2-3 weeks at the wound center. call [phone] for appt. Proposed Discharge Date: 11/29/17
[2017-11-29 10:30] VITALS: BP 123/63; PULSE 71; RESP 20; TEMP 36.8; O2SAT 96
[2017-11-29 10:50] VITALS: PULSE 85; RESP 18; O2SAT 96
[2017-11-29] MEDS: FLUoxetine 20 MG Capsule 40 MG PO (11:05)
[2017-11-29] MEDS: Docusate Sodium 100 MG Capsule PO (11:06)
[2017-11-29] MEDS: Pyridoxine HCl 100 MG Tablet PO (11:06)
[2017-11-29] MEDS: Mirabegron 25 MG TAB.ER.24H PO (11:06)
[2017-11-29 13:31] VITALS: PULSE 88; RESP 18
[2017-11-29 14:05] VITALS: BP 141/88; PULSE 85; RESP 20; TEMP 36.6; O2SAT 97
== END 2017-11-29 10:35 | disposition home health service (06) ==
LOC: SDC 08:00 → AC 08:02 → MS3 12:01
PROVIDERS: Family Provider Student in an Organized Health Care Education/Training Program; PCP Student in an Organized Health Care Education/Training Program; Visit Provider Surgery
PROC: (CPT 11000; principal; 2017-11-27 09:10)
DX: D17.1 Benign lipomatous neoplasm of skin and subcutaneous tissue of trunk (principal); L76.31 Postprocedural hematoma of skin and subcutaneous tissue following a dermatologic procedure; S21.209A Unspecified open wound of unspecified back wall of thorax without penetration into thoracic cavity, initial encounter; L08.9 Local infection of the skin and subcutaneous tissue, unspecified; Z80.8 Family history of malignant neoplasm of other organs or systems; J45.909 Unspecified asthma, uncomplicated; K21.9 Gastro-esophageal reflux disease without esophagitis; M19.90 Unspecified osteoarthritis, unspecified site; K58.9 Irritable bowel syndrome, unspecified; F32.9 Major depressive disorder, single episode, unspecified
CPT/HCPCS: 00300; 11000; 36415; 80048; 84134; 85027; 87070; 87075; 87102; 87205; 87206; 87640; 88305; 88312; 94640; 97802; J7040; J7050; J7120; A4216; J2405

== ENCOUNTER 2017-12-08 08:33 | Outpatient (RCR) | payer OTHER, SELFPAY ==
[2017-12-08 08:57] VITALS: BP 136/80; PULSE 90; RESP 20; TEMP 37.4; BMI 89.7
--- NOTE | 2017-12-08 18:05 | PCM.WC.PN ---
Type of Wound Date of Service: 12/08/17 Chief Complaint: Open surgical wound upper back/posterior neck. History of Wound: Surgery 11/27/17 - Surgical preparation upper back/posterior neck with incision and drainage and excisional debridement infected hematoma (66 cm2). Wound care - VAC. Operative culture - Negative. She was treated perioperatively with Levaquin and has finished them. Prealbumin from 11/28/17 was 22.4. She takes nutritional supplementation with protein to help the healing process. She has had some recent fungal rash around the wound. Probably from the VAC drape. She had some itching and was placed on Hydroxyzine. To improve the rash, she was given a Medrol dose pack. Will start her on Diflucan to help her symptomatology as well. She states her symptomatology is a little better. Progress of Wound: Recent surgery 11/27/17. - Physical Exam Vital Signs Temp Pulse Resp BP 99.3 F H 90 20 H 136/80 H 12/08/17 08:57 12/08/17 08:57 12/08/17 08:57 12/08/17 08:57 Debridement Note Post-Debridement Measurements/Treatment WC - Nurse 2 - General Ulcer CM Notes Start: 12/08/17 08:52 Freq: Status: Active Protocol: Activity Type Activity Date Activity User E-Sign Co-Sign Detail Recorded Client Recorded Date Recorded By Document 12/08/17 10:04 CHAPO [id number] 12/08/17 10:08 CHAPO 12/08/17 10:04 Wound Center Nurse 2 #1Upper Med Back -Time 10:04 -Correct Patient Yes -Correct Side, Site, Position Yes -Correct Procedure Yes -Procedure Performed Yes -Type of Procedure Debridement -Clinical Debridement Subcutaneous -Post Debridement Size (cm) - Length 10.5 -Post Debridement Size (cm) - Width 7 -Post Debridement Size (cm) - Depth 2.3 -Total Square Cm 73.5 -Wound/Ulcer Outcome Not Healed -Ulcer Cleansing Rinsed/ Irrigated with Saline -Foul Odor after Cleansing No -Bioengineered Tissue No -Cetacaine [place] No -Bleeding Controlled with Pressure -Treatment Response Procedure Tolerated Well Pain Scale: 0-10 Numeric Is Patient Pain Free? Yes Wound debrided: #1 Upper back/posterior neck. Laterality: Not Applicable Wound Grade/Stage: 2. Type of Debridement: Excisional debridement Anesthesia Used: 4% Lidocaine Solution Depth: Down to and including healthy tissue, in the subcutaneous layer Percentage of wound debrided: 100 Instrument Used: 7mm curette Tissue Removed: subcutaneous tissue. Severity: Fat Layer Exposed Amount of bleeding with debridement: Mild Bleeding Controlled with: Pressure Patient tolerated procedure well Assessment/Plan Assessment: 1. Open surgical wound upper back/posterior neck. 2. History of infected hematoma upper back/posterior neck. 3. s/p surgical preparation upper back/posterior neck with incision and drainage and excisional debridement infected hematoma (66 cm2). 4. Family history of skin cancer. 5. s/p excision 8 cm painful soft tissue mass upper back/posterior neck. Plan: Continue the VAC to the upper back/posterior neck wound. Will start Diflucan to help her fungal rash symptomatology. She states the symptomatology has improved. If the rash persists, can proceed with a VAC holiday. She is done with her perioperative Levaquin. The operative culture was negative. Her Prealbumin from 11/28/17 was 22.4. She takes nutritional supplementation with protein to help the healing process. Followup 2 weeks.
--- NOTE | 2017-12-09 17:01 | WC ---
Call received from patient in a.m. (9:30-jenny) and this afternoon about 1620 C/o severe pain to operative site where V.A.C. is in operation. Pain is 'uncontrolled'. Current pain medication of hydromorphone 2-4 mgm q4h prn. She stated skylar is only taking 4 mgm once a day due to driving. Itching is also a problem w/periwound skin secondary to occlusive drape. Extensive medication list reviewed. Instructed her to take 4 mgm hydromorphone as directed to get pain under control and to interspace Diazepam on the 'off hours'. Patient expressed concern of running out of pain medication, and would like to take a VAC Holiday. Will discuss case with her Professional Advisor in the morning and have her call back first thing in the morning.
== END 2017-12-31 23:59 ==
LOC: WC 08:33
PROVIDERS: Family Provider Student in an Organized Health Care Education/Training Program; PCP Student in an Organized Health Care Education/Training Program; Visit Provider Surgery
DX: S20.229A Contusion of unspecified back wall of thorax, initial encounter (principal); X58.XXXA Exposure to other specified factors, initial encounter; T81.4XXA Infection following a procedure, initial encounter; B99.8 Other infectious disease
CPT/HCPCS: 11042; 11045; 97606; 99213; G0463

== ENCOUNTER 2018-01-16 10:32 | Outpatient (RCR) | payer OTHER, SELFPAY | END 2018-01-31 23:59 | LOC: NS 10:32 | PROVIDERS: Family Provider Student in an Organized Health Care Education/Training Program; PCP Student in an Organized Health Care Education/Training Program; Visit Provider Student in an Organized Health Care Education/Training Program | DX: E66.01 Morbid (severe) obesity due to excess calories (principal); Z68.41 Body mass index [BMI] 40.0-44.9, adult | CPT/HCPCS: 97802 ==

== ENCOUNTER 2018-01-19 08:30 | Outpatient (RCR) | payer OTHER, SELFPAY ==
[2018-01-01 01:02] VITALS: BP 136/80; PULSE 90; RESP 20; TEMP 37.4; BMI 89.7
[2018-01-05 11:17] VITALS: BP 129/76; PULSE 86; RESP 18; TEMP 35; BMI 89.7
--- NOTE | 2018-01-05 22:23 | PN.PCM_ITS ---
Type of Wound Date of Service: 01/05/18 Chief Complaint: Nonhealing ulcer upper back/posterior neck. History of Wound: Surgery 11/27/17 - Surgical preparation upper back/posterior neck with incision and drainage and excisional debridement infected hematoma ( 66 cm2). Wound care - VAC holiday. Started Silver dressings. Operative culture - Negative. She was treated perioperatively with Levaquin and has finished them. Prealbumin from 11/28/17 was 22.4. She takes nutritional supplementation with protein to help the healing process. She has had some recent fungal rash around the wound. Probably from the VAC drape. She had some itching and was placed on Hydroxyzine. To improve the rash, she was given a Medrol dose pack. She was started on Diflucan to help her symptomatology as well. She states her symptomatology is a little better. Progress of Wound: Improved. - Physical Exam Vital Signs Temp Pulse Resp BP 95.0 F L 86 18 129/76 H 01/05/18 11:17 01/05/18 11:17 01/05/18 11:17 01/05/18 11:17 Wound Measurements and Assessment WC - Nurse 1 - General Ulcer Measurement Start: 01/05/18 11:17 Freq: Status: Active Protocol: Activity Type Activity Date Activity User E-Sign Co-Sign Detail Recorded Client Recorded Date Recorded By Document 01/05/18 11:17 DV [id number] 01/05/18 11:40 DV 01/05/18 11:17 Wound Center Nurse 1 [Ulcer Assessment] #1Upper Med Back -Combined with other wound No -Current Size (cm) - Length 6.8 -Current Size (cm) - Width 4.0 -Current Size (cm) - Depth 1.5 -Total Square Cm 27.20 -Date of Last Picture (Recall this 01/05/18 field) -Photo Taken Yes -Epithelialization Small 1-33% -Tunneling No -Undermining/Tunneling No -Undermining/Tunneling Starts (O' 9 clock) -Undermining/Tunneling Ends (O'clock) 10 -Maximum Distance (cm) 2.1 -Undermining/Tunneling Starts #2 (O' 11 clock) -Undermining/Tunneling Ends #2 (O' 1 clock) -Maximum Distance #2 (cm) 2.1 -Circular Undermining No -Classification - Thickness Full Thickness without Exposed Support Structure -Exudate Amt Medium (34-66%) -Exudate Type Serosanguineous -Wound Margin Distinct, Outline Attached -Granulation Amt Medium (34-66%) -Granulation Quality [place] Red -Slough/Fibrin Yes -Necrosis Amt Medium (34-66%) -Necrotic Tissue Type Adherent Slough -Structure Exposed N/A -Texture (Vidhya-wound Skin Appearance) Assessed Scarring -Moisture (Vidhya-wound Skin Appearance Assessed ) Weeping -Color (Vidhya-wound Skin Appearance) No Abnormality Assessed -Temperature (Vidhya-wound Skin No Abnormality Appearance) (Pt Warm) -Ulcer Cleansing Rinsed/ Irrigated with Saline -Foul Odor after Cleansing No -Anesthetic Used 4% Lidocaine Solution - Nurse 2 - General Ulcer CM Notes Start: 01/05/18 11:17 Freq: Status: Active Protocol: Activity Type Activity Date Activity User E-Sign Co-Sign Detail Recorded Client Recorded Date Recorded By Document 01/05/18 11:50 CHAPO [id number] 01/05/18 11:53 01/05/18 11:50 Wound Center Nurse 2 [Procedure/Treatment] -Time 11:51 -Correct Patient Yes -Correct Side, Site, Position Yes -Correct Procedure Yes -Procedure Performed Yes -Type of Procedure Debridement -Clinical Debridement Subcutaneous -Post Debridement Size (cm) - Length 6.8 -Post Debridement Size (cm) - Width 4.1 -Post Debridement Size (cm) - Depth 1.5 -Total Square Cm 27.88 -Wound/Ulcer Outcome Not Healed -Ulcer Cleansing Rinsed/ Irrigated with Saline -Foul Odor after Cleansing No -Bioengineered Tissue No -Bleeding Controlled with Pressure -Treatment Response Procedure Tolerated Well [See Physician Procedure note for Specifics] Pain Scale: 0-10 Numeric [Pain] -Is Patient Pain Free? Yes Debridement Note Post-Debridement Measurements/Treatment - Nurse 2 - General Ulcer CM Notes Start: 01/05/18 11:17 Freq: Status: Active Protocol: Activity Type Activity Date Activity User E-Sign Co-Sign Detail Recorded Client Recorded Date Recorded By Document 01/05/18 11:50 CHAPO [id number] 01/05/18 11:53 01/05/18 11:50 [facility] -Time 11:51 -Correct Patient Yes -Correct Side, Site, Position Yes -Correct Procedure Yes -Procedure Performed Yes -Type of Procedure Debridement -Clinical Debridement Subcutaneous -Post Debridement Size (cm) - Length 6.8 -Post Debridement Size (cm) - Width 4.1 -Post Debridement Size (cm) - Depth 1.5 -Total Square Cm 27.88 -Wound/Ulcer Outcome Not Healed -Ulcer Cleansing Rinsed/ Irrigated with Saline -Foul Odor after Cleansing No -Bioengineered Tissue No -Bleeding Controlled with Pressure -Treatment Response Procedure Tolerated Well Pain Scale: 0-10 Numeric Is Patient Pain Free? Yes Wound debrided: #1 Upper back/posterior neck. Laterality: Not Applicable Wound Grade/Stage: 2 Type of Debridement: Excisional debridement Anesthesia Used: 4% Lidocaine Solution Depth: Down to and including healthy tissue, in the subcutaneous layer Percentage of wound debrided: 100 Instrument Used: 7mm curette Tissue Removed: subcutaneous tissue. Severity: Fat Layer Exposed Amount of bleeding with debridement: Mild Bleeding Controlled with: Pressure Patient tolerated procedure well Assessment/Plan Assessment: 1. Nonhealing ulcer upper back/posterior neck. 2. History of infected hematoma upper back/posterior neck. 3. s/p surgical preparation upper back/posterior neck with incision and drainage and excisional debridement infected hematoma (66 cm2). 4. Family history of skin cancer. 5. s/p excision 8 cm painful soft tissue mass upper back/posterior neck. Plan: Continue the Silver dressing changes daily. The VAC has been stopped and will be returned. Because of her symptomatology, delayed closure with skin grafting was discussed. She will think about it and let me know. She is finishing the Diflucan to help her fungal rash symptomatology. She states the symptomatology has improved. The operative culture was negative. She is finished with the Levaquin. Her Prealbumin from 11/28/17 was 22.4. She takes nutritional supplementation with protein to help the healing process. Followup 2 weeks.
[2018-01-19 08:40] VITALS: BP 151/79; PULSE 89; RESP 18; TEMP 36.6; BMI 89.7
--- NOTE | 2018-01-19 18:36 | PCM.WC.PN ---
Type of Wound Date of Service: 01/19/18 Chief Complaint: Nonhealing ulcer upper back/posterior neck. History of Wound: Surgery 11/27/17 - Surgical preparation upper back/posterior neck with incision and drainage and excisional debridement infected hematoma (66 cm2). Wound care - Silver dressings. Operative culture - Negative. She was treated perioperatively with Levaquin and has finished them. Prealbumin from 11/28/17 was 22.4. She takes nutritional supplementation with protein to help the healing process. The periwound rash has resolved and she has stopped the Diflucan. Today she denies fever. Her appetite is good. Progress of Wound: Improved. - Physical Exam Vital Signs Temp Pulse Resp BP 98 F 89 18 151/79 H 01/19/18 08:40 01/19/18 08:40 01/19/18 08:40 01/19/18 08:40 Wound Measurements and Assessment WC - Nurse 1 - General Ulcer Measurement Start: 01/05/18 11:17 Freq: Status: Active Protocol: Activity Type Activity Date Activity User E-Sign Co-Sign Detail Recorded Client Recorded Date Recorded By Document 01/19/18 08:40 DL [id number] 01/19/18 08:45 DL 01/19/18 08:40 Wound Center Nurse 1 [Ulcer Assessment] #1Upper Med Back -Current Size (cm) - Length 5.2 -Current Size (cm) - Width 3.8 -Current Size (cm) - Depth 0.5 -Total Square Cm 19.76 -Photo Taken No -Undermining/Tunneling Starts (O' 10 clock) -Undermining/Tunneling Ends (O'clock) 1 -Maximum Distance (cm) 2 -Exudate Amt Medium (34-66%) -Exudate Type Serosanguineous -Wound Margin Thickened & Rolled Under -Granulation Amt Large (67-100%) -Granulation Quality Red -Necrosis Amt Small (1-33%) -Necrotic Tissue Type Adherent Slough -Structure Exposed N/A -Texture (Vidhya-wound Skin Appearance) Scarring -Moisture (Vidhya-wound Skin Appearance No Abnormality ) -Color (Vidhya-wound Skin Appearance) No Abnormality -Temperature (Vidhya-wound Skin No Abnormality Appearance) (Pt Warm) -Ulcer Cleansing Rinsed/ Irrigated with Saline -Foul Odor after Cleansing No -Anesthetic Used 4% Lidocaine Solution WC - Nurse 2 - General Ulcer CM Notes Start: 01/05/18 11:17 Freq: Status: Active Protocol: Activity Type Activity Date Activity User E-Sign Co-Sign Detail Recorded Client Recorded Date Recorded By Document 01/19/18 08:58 [id number] 01/19/18 09:00 01/19/18 08:58 Wound Center Nurse 2 [Procedure/Treatment] -Time 08:59 -Correct Patient Yes -Correct Side, Site, Position Yes -Correct Procedure Yes -Procedure Performed Yes -Type of Procedure Debridement -Clinical Debridement Subcutaneous -Post Debridement Size (cm) - Length 5.3 -Post Debridement Size (cm) - Width 3.8 -Post Debridement Size (cm) - Depth 0.5 -Total Square Cm 20.14 -Wound/Ulcer Outcome Not Healed -Ulcer Cleansing Rinsed/ Irrigated with Saline -Foul Odor after Cleansing No -Bioengineered Tissue No -Bleeding Controlled with Pressure -Treatment Response Procedure Tolerated Well [See Physician Procedure note for Specifics] Pain Scale: 0-10 Numeric [Pain] -Is Patient Pain Free? Yes Debridement Note Post-Debridement Measurements/Treatment - Nurse 2 - General Ulcer CM Notes Start: 01/05/18 11:17 Freq: Status: Active Protocol: Activity Type Activity Date Activity User E-Sign Co-Sign Detail Recorded Client Recorded Date Recorded By Document 01/05/18 11:50 [id number] 01/05/18 11:53 Document 01/19/18 08:58 [email or web address] [id number] 01/19/18 09:00 01/05/18 01/19/18 11:50 08:58 Wound Center Nurse 2 #1per [facility] Back -Time 11:51 08:59 -Correct Patient Yes Yes -Correct Side, Site, Position Yes Yes -Correct Procedure Yes Yes -Procedure Performed Yes Yes -Type of Procedure Debridement Debridement -Clinical Debridement Subcutaneous Subcutaneous -Post Debridement Size (cm) - Length 6.8 5.3 -Post Debridement Size (cm) - Width 4.1 3.8 -Post Debridement Size (cm) - Depth 1.5 0.5 -Total Square Cm 27.88 20.14 -Wound/Ulcer Outcome Not Healed Not Healed -Ulcer Cleansing Rinsed/ Rinsed/ Irrigated with Irrigated with Saline Saline -Foul Odor after Cleansing No No -Bioengineered Tissue No No -Bleeding Controlled with Pressure Pressure -Treatment Response Procedure Procedure Tolerated Well Tolerated Well Pain Scale: 0-10 Numeric Is Patient Pain Free? Yes Yes Wound debrided: #1 Upper back/posterior neck. Laterality: Not Applicable Wound Grade/Stage: 2. Type of Debridement: Excisional debridement Anesthesia Used: 4% Lidocaine Solution Depth: Down to and including healthy tissue, in the subcutaneous layer Percentage of wound debrided: 100 Instrument Used: 5mm curette Tissue Removed: subcutaneous tissue. Severity: Fat Layer Exposed Amount of bleeding with debridement: Mild Bleeding Controlled with: Pressure Patient tolerated procedure well Assessment/Plan Assessment: 1. Nonhealing ulcer upper back/posterior neck. 2. History of infected hematoma upper back/posterior neck. 3. s/p surgical preparation upper back/posterior neck with incision and drainage and excisional debridement infected hematoma (66 cm2). 4. Family history of skin cancer. 5. s/p excision 8 cm painful soft tissue mass upper back/posterior neck. Plan: Continue the Silver dressing changes daily. She has thought about the skin graft and wants to proceed. Will schedule toward the end of next month. I want to see a little less undermining of the superior edge of the healing ulcer. The periwound rash has resolved and she has finished the Diflucan. The operative culture was negative. She is finished with the Levaquin. Her Prealbumin from 11/28/17 was 22.4. She takes nutritional supplementation with protein to help the healing process. She was having some increased discomfort with the dressing changes recently. Renewed her Dilaudid for pain, twice a day (15 tabs). Followup 3 weeks.
== END 2018-01-31 23:59 ==
LOC: WC 08:30
PROVIDERS: Family Provider Student in an Organized Health Care Education/Training Program; PCP Student in an Organized Health Care Education/Training Program; Visit Provider Surgery
DX: S10.9 Superficial injury of unspecified part of neck (principal); S20.22 Contusion of back wall of thorax; X58.XXXS Exposure to other specified factors, sequela; L98.492 Non-pressure chronic ulcer of skin of other sites with fat layer exposed
CPT/HCPCS: 11042; 11045

== ENCOUNTER → 2018-01-26 11:02 | Outpatient (CLI) | payer OTHER, SELFPAY | PROVIDERS: Family Provider Student in an Organized Health Care Education/Training Program; PCP Student in an Organized Health Care Education/Training Program; Visit Provider Nurse Practitioner Adult Health | DX: R94.31 Abnormal electrocardiogram [ECG] [EKG] (principal); R42 Dizziness and giddiness | CPT/HCPCS: 93225; 93226 ==

== ENCOUNTER 2018-02-06 10:34 | Outpatient (RCR) | payer OTHER, SELFPAY | END 2018-03-02 23:59 | LOC: NS 10:34 | PROVIDERS: Family Provider Student in an Organized Health Care Education/Training Program; PCP Student in an Organized Health Care Education/Training Program; Visit Provider Student in an Organized Health Care Education/Training Program | DX: E66.01 Morbid (severe) obesity due to excess calories (principal); Z68.41 Body mass index [BMI] 40.0-44.9, adult; Z71.3 Dietary counseling and surveillance | CPT/HCPCS: 97803 ==

== ENCOUNTER 2018-02-23 10:30 | Outpatient (RCR) | payer OTHER, SELFPAY ==
[2018-02-01 00:51] VITALS: BP 136/80; PULSE 89; RESP 18; TEMP 36.6; BMI 89.7
[2018-02-09 11:00] VITALS: BP 138/96; PULSE 89; RESP 16; TEMP 37.7; BMI 89.7
--- NOTE | 2018-02-09 20:16 | PN.PCM_ITS ---
Type of Wound Date of Service: 02/09/18 Chief Complaint: Nonhealing ulcer upper back/posterior neck. History of Wound: Surgery 11/27/17 - Surgical preparation upper back/posterior neck with incision and drainage and excisional debridement infected hematoma ( 66 cm2). Wound care - Silver dressings. Operative culture - Negative. She was treated perioperatively with Levaquin and has finished them. Prealbumin from 11/28/17 was 22.4. She takes nutritional supplementation with protein to help the healing process. The periwound rash has resolved and she has stopped the Diflucan. Today she denies fever. Her appetite is good. Progress of Wound: Improved. - Physical Exam Vital Signs Temp Pulse Resp BP 99.8 F H 89 16 138/96 H 02/09/18 11:00 02/09/18 11:00 02/09/18 11:00 02/09/18 11:00 Wound Measurements and Assessment WC - Nurse 1 - General Ulcer Measurement Start: 02/09/18 10:50 Freq: Status: Active Protocol: Activity Type Activity Date Activity User E-Sign Co-Sign Detail Recorded Client Recorded Date Recorded By Document 02/09/18 11:00 [facility] [id number] 02/09/18 11:13 [facility] 02/09/18 11:00 Wound Center Nurse 1 [Ulcer Assessment] #1Upper Med Back -Combined with other wound No -Current Size (cm) - Length 3.4 -Current Size (cm) - Width 2.4 -Current Size (cm) - Depth 0.4 -Total Square Cm 8.16 -Date of Last Picture (Recall this 02/09/18 field) -Photo Taken Yes -Epithelialization Small 1-33% -Tunneling No -Undermining/Tunneling No -Circular Undermining No -Exudate Amt Small (1-33%) -Exudate Type Serosanguineous -Wound Margin Distinct, Outline Attached -Granulation Amt Large (67-100%) -Granulation Quality [place] -Slough/Fibrin No -Necrosis Amt None Present (0 %) -Structure Exposed None/Limited to Skin Breakdown -Texture (Vidhya-wound Skin Appearance) Scarring -Moisture (Vidhya-wound Skin Appearance Dry/Scaly ) -Color (Vidhya-wound Skin Appearance) Assessed -Temperature (Vidhya-wound Skin No Abnormality Appearance) (Pt Warm) -Tenderness on Palpation (Vidhya-wound Yes Skin Appearance) -Ulcer Cleansing Rinsed/ Irrigated with Saline -Foul Odor after Cleansing No -Anesthetic Used 4% Lidocaine Solution - Nurse 2 - General Ulcer CM Notes Start: 02/09/18 10:50 Freq: Status: Active Protocol: Activity Type Activity Date Activity User E-Sign Co-Sign Detail Recorded Client Recorded Date Recorded By Document 02/09/18 11:27 [id number] 02/09/18 11:29 02/09/18 11:27 Wound Center Nurse 2 [Procedure/Treatment] -Time 11:27 -Correct Patient Yes -Correct Side, Site, Position Yes -Correct Procedure Yes -Procedure Performed Yes -Type of Procedure Debridement -Clinical Debridement Subcutaneous -Post Debridement Size (cm) - Length 3.5 -Post Debridement Size (cm) - Width 2.5 -Post Debridement Size (cm) - Depth 0.4 -Total Square Cm 8.75 -Wound/Ulcer Outcome Not Healed -Ulcer Cleansing Rinsed/ Irrigated with Saline -Foul Odor after Cleansing No -Bioengineered Tissue No -Bleeding Controlled with Pressure -Treatment Response Procedure Tolerated Well [See Physician Procedure note for Specifics] Pain Scale: 0-10 Numeric [Pain] -Is Patient Pain Free? Yes Debridement Note Post-Debridement Measurements/Treatment - Nurse 2 - General Ulcer CM Notes Start: 02/09/18 10:50 Freq: Status: Active Protocol: Activity Type Activity Date Activity User E-Sign Co-Sign Detail Recorded Client Recorded Date Recorded By Document 02/09/18 11:27 [id number] 02/09/18 11:29 02/09/18 11:27 Wound Center Nurse 2 #1[facility] Back -Time 11:27 -Correct Patient Yes -Correct Side, Site, Position Yes -Correct Procedure Yes -Procedure Performed Yes -Type of Procedure Debridement -Clinical Debridement Subcutaneous -Post Debridement Size (cm) - Length 3.5 -Post Debridement Size (cm) - Width 2.5 -Post Debridement Size (cm) - Depth 0.4 -Total Square Cm 8.75 -Wound/Ulcer Outcome Not Healed -Ulcer Cleansing Rinsed/ Irrigated with Saline -Foul Odor after Cleansing No -Bioengineered Tissue No -Bleeding Controlled with Pressure -Treatment Response Procedure Tolerated Well Pain Scale: 0-10 Numeric Is Patient Pain Free? Yes Wound debrided: #1 Upper back/posterior neck. Laterality: Not Applicable Wound Grade/Stage: 2. Type of Debridement: Excisional debridement Anesthesia Used: 4% Lidocaine Solution Depth: Down to and including healthy tissue, in the subcutaneous layer Percentage of wound debrided: 100 Instrument Used: 5mm curette Tissue Removed: subcutaneous tissue. Severity: Fat Layer Exposed Amount of bleeding with debridement: Mild Bleeding Controlled with: Pressure Patient tolerated procedure well Assessment/Plan Assessment: 1. Nonhealing ulcer upper back/posterior neck. 2. History of infected hematoma upper back/posterior neck. 3. s/p surgical preparation upper back/posterior neck with incision and drainage and excisional debridement infected hematoma (66 cm2). 4. Family history of skin cancer. 5. s/p excision 8 cm painful soft tissue mass upper back/posterior neck. Plan: Will hold the Silver dressing changes and change to Jinny to get some extra collagen involved for healing as it continues to get smaller with less undermining superiorly. She has thought about the skin graft and wants to proceed. It has been scheduled for first week of March. The periwound rash has resolved and she has finished the Diflucan. The operative culture was negative. She is finished with the Levaquin. Her Prealbumin from 11/28/17 was 22.4. She takes nutritional supplementation with protein to help the healing process. Followup 2 weeks.
[2018-02-23 10:41] VITALS: BP 138/85; PULSE 77; RESP 16; TEMP 37.7; BMI 89.7
--- NOTE | 2018-02-23 19:31 | PCM.WC.PN ---
Type of Wound Date of Service: 02/23/18 Chief Complaint: Nonhealing ulcer upper back/posterior neck. History of Wound: Surgery 11/27/17 - Surgical preparation upper back/posterior neck with incision and drainage and excisional debridement infected hematoma (66 cm2). Wound care - Silver dressings. Operative culture - Negative. She was treated perioperatively with Levaquin and has finished them. Prealbumin from 11/28/17 was 22.4. She takes nutritional supplementation with protein to help the healing process. The periwound rash has resolved and she has stopped the Diflucan. Today she denies fever. Her appetite is good. Progress of Wound: Improved. - Physical Exam Vital Signs Temp Pulse Resp BP 99.8 F H 77 16 138/85 H 02/23/18 10:41 02/23/18 10:41 02/23/18 10:41 02/23/18 10:41 Wound Measurements and Assessment WC - Nurse 1 - General Ulcer Measurement Start: 02/09/18 10:50 Freq: Status: Active Protocol: Activity Type Activity Date Activity User E-Sign Co-Sign Detail Recorded Client Recorded Date Recorded By Document 02/23/18 10:41 [id number] 02/23/18 10:56 02/23/18 10:41 Wound Center Nurse 1 [Ulcer Assessment] #1Upper Med Back -Combined with other wound No -Current Size (cm) - Length 2.5 -Current Size (cm) - Width 1.3 -Current Size (cm) - Depth 0.5 -Total Square Cm 3.25 -Photo Taken No -Epithelialization Medium 34-66% -Tunneling No -Undermining/Tunneling Yes -Undermining/Tunneling Starts (O' 12 clock) -Undermining/Tunneling Ends (O'clock) 12 -Maximum Distance (cm) 0.2 -Circular Undermining No -Classification - Thickness Full Thickness without Exposed Support Structure -Exudate Amt Small (1-33%) -Exudate Type Serosanguineous -Wound Margin Distinct, Outline Attached -Granulation Amt Large (67-100%) -Granulation Quality Red -Slough/Fibrin Yes -Necrosis Amt None Present (0 %) -Necrotic Tissue Type Adherent Slough -Structure Exposed None/Limited to Skin Breakdown -Texture (Vidhya-wound Skin Appearance) No Abnormality -Moisture (Vidhya-wound Skin Appearance No Abnormality ) -Color (Vidhya-wound Skin Appearance) No Abnormality -Temperature (Vidhya-wound Skin No Abnormality Appearance) (Pt Warm) -Tenderness on Palpation (Vidhya-wound Yes Skin Appearance) -Ulcer Cleansing Rinsed/ Irrigated with Saline -Foul Odor after Cleansing No -Anesthetic Used 4% Lidocaine Solution JANKI - Nurse 2 - General Ulcer CM Notes Start: 02/09/18 10:50 Freq: Status: Active Protocol: Activity Type Activity Date Activity User E-Sign Co-Sign Detail Recorded Client Recorded Date Recorded By Document 02/23/18 11:14 [id number] 02/23/18 11:15 02/23/18 11:14 Wound Center Nurse 2 [Procedure/Treatment] -Time 11:14 -Correct Patient Yes -Correct Side, Site, Position Yes -Correct Procedure Yes -Procedure Performed Yes -Type of Procedure Debridement -Clinical Debridement Subcutaneous -Post Debridement Size (cm) - Length 2.5 -Post Debridement Size (cm) - Width 1.4 -Post Debridement Size (cm) - Depth 0.3 -Total Square Cm 3.50 -Wound/Ulcer Outcome Not Healed -Ulcer Cleansing Rinsed/ Irrigated with Saline -Foul Odor after Cleansing No -Bioengineered Tissue No -Bleeding Controlled with Pressure -Treatment Response Procedure Tolerated Well [See Physician Procedure note for Specifics] Pain Scale: 0-10 Numeric [Pain] -Is Patient Pain Free? Yes Debridement Note Post-Debridement Measurements/Treatment - Nurse 2 - General Ulcer CM Notes Start: 02/09/18 10:50 Freq: Status: Active Protocol: Activity Type Activity Date Activity User E-Sign Co-Sign Detail Recorded Client Recorded Date Recorded By Document 02/09/18 11:27 [id number] 02/09/18 11:29 Document 02/23/18 11:14 [id number] 02/23/18 11:15 02/09/18 02/23/18 11:27 11:14 Wound Center Nurse 2 #1[facility] Back -Time 11:27 11:14 -Correct Patient Yes Yes -Correct Side, Site, Position Yes Yes -Correct Procedure Yes Yes -Procedure Performed Yes Yes -Type of Procedure Debridement Debridement -Clinical Debridement Subcutaneous Subcutaneous -Post Debridement Size (cm) - Length 3.5 2.5 -Post Debridement Size (cm) - Width 2.5 1.4 -Post Debridement Size (cm) - Depth 0.4 0.3 -Total Square Cm 8.75 3.50 -Wound/Ulcer Outcome Not Healed Not Healed -Ulcer Cleansing Rinsed/ Rinsed/ Irrigated with Irrigated with Saline Saline -Foul Odor after Cleansing No No -Bioengineered Tissue No No -Bleeding Controlled with Pressure Pressure -Treatment Response Procedure Procedure Tolerated Well Tolerated Well Pain Scale: 0-10 Numeric Is Patient Pain Free? Yes Yes Wound debrided: #1 Upper back/posterior neck. Laterality: Not Applicable Wound Grade/Stage: 2. Type of Debridement: Excisional debridement Anesthesia Used: 4% Lidocaine Solution Depth: Down to and including healthy tissue, in the subcutaneous layer Percentage of wound debrided: 100 Instrument Used: 5mm curette Tissue Removed: subcutaneous tissue. Severity: Fat Layer Exposed Amount of bleeding with debridement: Mild Bleeding Controlled with: Pressure Patient tolerated procedure well Assessment/Plan Assessment: 1. Nonhealing ulcer upper back/posterior neck. 2. History of infected hematoma upper back/posterior neck. 3. s/p surgical preparation upper back/posterior neck with incision and drainage and excisional debridement infected hematoma (66 cm2). 4. Family history of skin cancer. 5. s/p excision 8 cm painful soft tissue mass upper back/posterior neck. Plan: Will hold the Silver dressing changes and change to Jinny to get some extra collagen involved for healing as it continues to get smaller with less undermining superiorly. She has thought about the skin graft and wants to proceed. It has been scheduled for first week of March. The periwound rash has resolved and she has finished the Diflucan. The operative culture was negative. She is finished with the Levaquin. Her Prealbumin from 11/28/17 was 22.4. She takes nutritional supplementation with protein to help the healing process. Followup 2 weeks.
--- NOTE | 2018-02-24 11:41 | PN.PCM_ITS ---
Type of Wound Date of Service: 02/23/18 Chief Complaint: Nonhealing ulcer upper back/posterior neck. History of Wound: Surgery 11/27/17 - Surgical preparation upper back/posterior neck with incision and drainage and excisional debridement infected hematoma ( 66 cm2). Wound care - Silver dressings. Operative culture - Negative. She was treated perioperatively with Levaquin and has finished them. Prealbumin from 11/28/17 was 22.4. She takes nutritional supplementation with protein to help the healing process. The periwound rash has resolved and she has stopped the Diflucan. Today she denies fever. Her appetite is good. Progress of Wound: Improved. - Physical Exam Vital Signs Temp Pulse Resp BP 99.8 F H 77 16 138/85 H 02/23/18 10:41 02/23/18 10:41 02/23/18 10:41 02/23/18 10:41 Wound Measurements and Assessment WC - Nurse 1 - General Ulcer Measurement Start: 02/09/18 10:50 Freq: Status: Active Protocol: Activity Type Activity Date Activity User E-Sign Co-Sign Detail Recorded Client Recorded Date Recorded By Document 02/23/18 10:41 [id number] 02/23/18 10:56 02/23/18 10:41 Wound Center Nurse 1 [Ulcer Assessment] #1Upper Med Back -Combined with other wound No -Current Size (cm) - Length 2.5 -Current Size (cm) - Width 1.3 -Current Size (cm) - Depth 0.5 -Total Square Cm 3.25 -Photo Taken No -Epithelialization Medium 34-66% -Tunneling No -Undermining/Tunneling Yes -Undermining/Tunneling Starts (O' 12 clock) -Undermining/Tunneling Ends (O'clock) 12 -Maximum Distance (cm) 0.2 -Circular Undermining No -Classification - Thickness Full Thickness without Exposed Support Structure -Exudate Amt Small (1-33%) -Exudate Type Serosanguineous -Wound Margin Distinct, Outline Attached -Granulation Amt Large (67-100%) -Granulation Quality Red -Slough/Fibrin Yes -Necrosis Amt None Present (0 %) -Necrotic Tissue Type Adherent Slough -Structure Exposed None/Limited to Skin Breakdown -Texture (Vidhya-wound Skin Appearance) No Abnormality -Moisture (Vidhya-wound Skin Appearance No Abnormality ) -Color (Vidhya-wound Skin Appearance) No Abnormality -Temperature (Vidhya-wound Skin No Abnormality Appearance) (Pt Warm) -Tenderness on Palpation (Vidhya-wound Yes Skin Appearance) -Ulcer Cleansing Rinsed/ Irrigated with Saline -Foul Odor after Cleansing No -Anesthetic Used 4% Lidocaine Solution JANKI - Nurse 2 - General Ulcer CM Notes Start: 02/09/18 10:50 Freq: Status: Active Protocol: Activity Type Activity Date Activity User E-Sign Co-Sign Detail Recorded Client Recorded Date Recorded By Document 02/23/18 11:14 [id number] 02/23/18 11:15 02/23/18 11:14 Wound Center Nurse 2 [Procedure/Treatment] -Time 11:14 -Correct Patient Yes -Correct Side, Site, Position Yes -Correct Procedure Yes -Procedure Performed Yes -Type of Procedure Debridement -Clinical Debridement Subcutaneous -Post Debridement Size (cm) - Length 2.5 -Post Debridement Size (cm) - Width 1.4 -Post Debridement Size (cm) - Depth 0.3 -Total Square Cm 3.50 -Wound/Ulcer Outcome Not Healed -Ulcer Cleansing Rinsed/ Irrigated with Saline -Foul Odor after Cleansing No -Bioengineered Tissue No -Bleeding Controlled with Pressure -Treatment Response Procedure Tolerated Well [See Physician Procedure note for Specifics] Pain Scale: 0-10 Numeric [Pain] -Is Patient Pain Free? Yes Debridement Note Post-Debridement Measurements/Treatment - Nurse 2 - General Ulcer CM Notes Start: 02/09/18 10:50 Freq: Status: Active Protocol: Activity Type Activity Date Activity User E-Sign Co-Sign Detail Recorded Client Recorded Date Recorded By Document 02/09/18 11:27 [id number] 02/09/18 11:29 Document 02/23/18 11:14 [id number] 02/23/18 11:15 02/09/18 02/23/18 11:27 11:14 Wound Center Nurse 2 #1[facility] Back -Time 11:27 11:14 -Correct Patient Yes Yes -Correct Side, Site, Position Yes Yes -Correct Procedure Yes Yes -Procedure Performed Yes Yes -Type of Procedure Debridement Debridement -Clinical Debridement Subcutaneous Subcutaneous -Post Debridement Size (cm) - Length 3.5 2.5 -Post Debridement Size (cm) - Width 2.5 1.4 -Post Debridement Size (cm) - Depth 0.4 0.3 -Total Square Cm 8.75 3.50 -Wound/Ulcer Outcome Not Healed Not Healed -Ulcer Cleansing Rinsed/ Rinsed/ Irrigated with Irrigated with Saline Saline -Foul Odor after Cleansing No No -Bioengineered Tissue No No -Bleeding Controlled with Pressure Pressure -Treatment Response Procedure Procedure Tolerated Well Tolerated Well Pain Scale: 0-10 Numeric Is Patient Pain Free? Yes Yes Wound debrided: #1 Upper back/posterior neck. Laterality: Not Applicable Wound Grade/Stage: 2. Type of Debridement: Excisional debridement Anesthesia Used: 4% Lidocaine Solution Depth: Down to and including healthy tissue, in the subcutaneous layer Percentage of wound debrided: 100 Instrument Used: 5mm curette Tissue Removed: subcutaneous tissue. Severity: Fat Layer Exposed Amount of bleeding with debridement: Mild Bleeding Controlled with: Pressure Patient tolerated procedure well Assessment/Plan Assessment: 1. Nonhealing ulcer upper back/posterior neck. 2. History of infected hematoma upper back/posterior neck. 3. s/p surgical preparation upper back/posterior neck with incision and drainage and excisional debridement infected hematoma (66 cm2). 4. Family history of skin cancer. 5. s/p excision 8 cm painful soft tissue mass upper back/posterior neck. Plan: Will hold the Silver dressing changes and change to Jinny to get some extra collagen involved for healing as it continues to get smaller with less undermining superiorly. She has thought about the skin graft and wants to proceed. It has been scheduled for first week of March. The periwound rash has resolved and she has finished the Diflucan. The operative culture was negative. She is finished with the Levaquin. Her Prealbumin from 11/28/17 was 22.4. She takes nutritional supplementation with protein to help the healing process. Followup 2 weeks.
== END 2018-03-02 23:59 ==
LOC: WC 10:30
PROVIDERS: Family Provider Student in an Organized Health Care Education/Training Program; PCP Student in an Organized Health Care Education/Training Program; Visit Provider Surgery
DX: S20.229A Contusion of unspecified back wall of thorax, initial encounter (principal); X58.XXXA Exposure to other specified factors, initial encounter; R22.1 Localized swelling, mass and lump, neck; L98.492 Non-pressure chronic ulcer of skin of other sites with fat layer exposed
CPT/HCPCS: 11042

== ENCOUNTER 2018-03-09 08:19 | Outpatient (RCR) | payer OTHER, SELFPAY ==
[2018-03-03 00:43] VITALS: BP 136/80; PULSE 77; RESP 16; TEMP 37.7; BMI 89.7
[2018-03-09 09:27] VITALS: BP 129/97; PULSE 92; RESP 18; TEMP 36.4; BMI 89.7
--- NOTE | 2018-03-09 21:47 | PN.PCM_ITS ---
Type of Wound Date of Service: 03/09/18 Chief Complaint: Nonhealing ulcer upper back/posterior neck. History of Wound: Surgery 11/27/17 - Surgical preparation upper back/posterior neck with incision and drainage and excisional debridement infected hematoma ( 66 cm2). Wound care - Jinny dressings. Operative culture - Negative. She was treated perioperatively with Levaquin and has finished them. Prealbumin from 11/28/17 was 22.4. She takes nutritional supplementation with protein to help the healing process. The periwound rash has resolved and she has stopped the Diflucan. Today she denies fever. Her appetite is good. Progress of Wound: Improved. - Physical Exam Vital Signs Temp Pulse Resp BP 97.6 F L 92 18 129/97 H 03/09/18 09:27 03/09/18 09:27 03/09/18 09:27 03/09/18 09:27 Wound Measurements and Assessment WC - Nurse 1 - General Ulcer Measurement Start: 03/09/18 09:27 Freq: Status: Active Protocol: Activity Type Activity Date Activity User E-Sign Co-Sign Detail Recorded Client Recorded Date Recorded By Document 03/09/18 09:27 [id number] 03/09/18 09:30 03/09/18 09:27 Wound Center Nurse 1 [Ulcer Assessment] #1Upper Med Back -Combined with other wound No -Current Size (cm) - Length 0.5 -Current Size (cm) - Width 0.2 -Current Size (cm) - Depth 0.1 -Total Square Cm 0.10 -Date of Last Picture (Recall this 03/09/18 field) -Photo Taken Yes -Epithelialization Medium 34-66% -Tunneling No -Undermining/Tunneling No -Circular Undermining No -Classification - Thickness Full Thickness without Exposed Support Structure -Exudate Amt Small (1-33%) -Exudate Type Serosanguineous -Wound Margin Distinct, Outline Attached -Granulation Amt Large (67-100%) -Granulation Quality Red -Slough/Fibrin Yes -Necrosis Amt Small (1-33%) -Necrotic Tissue Type Adherent Slough -Structure Exposed Fascia Fat Layer Exposed -Texture (Vidhya-wound Skin Appearance) Scarring -Moisture (Vidhya-wound Skin Appearance No Abnormality ) -Color (Vidhya-wound Skin Appearance) No Abnormality -Temperature (Vidhya-wound Skin No Abnormality Appearance) (Pt Warm) -Tenderness on Palpation (Vidhya-wound Yes Skin Appearance) -Ulcer Cleansing Rinsed/ Irrigated with Saline -Foul Odor after Cleansing No -Anesthetic Used 5% Lidocaine Gel [Edema Assessment] -Lower Limb Edema Present No - Nurse 2 - General Ulcer CM Notes Start: 03/09/18 09:27 Freq: Status: Active Protocol: Activity Type Activity Date Activity User E-Sign Co-Sign Detail Recorded Client Recorded Date Recorded By Document 03/09/18 09:45 [id number] 03/09/18 09:46 03/09/18 09:45 Wound Center Nurse 2 [Procedure/Treatment] #1Upper Med Back -Time 09:45 -Correct Patient Yes -Correct Side, Site, Position Yes -Correct Procedure Yes -Procedure Performed Yes -Type of Procedure Debridement -Clinical Debridement Subcutaneous -Post Debridement Size (cm) - Length 0.6 -Post Debridement Size (cm) - Width 0.3 -Post Debridement Size (cm) - Depth 0.1 -Total Square Cm 0.18 -Wound/Ulcer Outcome Not Healed -Ulcer Cleansing Rinsed/ Irrigated with Saline -Foul Odor after Cleansing No -Bioengineered Tissue No -Bleeding Controlled with Pressure -Treatment Response Procedure Tolerated Well [See Physician Procedure note for Specifics] Pain Scale: 0-10 Numeric [Pain] -Is Patient Pain Free? Yes Debridement Note Post-Debridement Measurements/Treatment - Nurse 2 - General Ulcer CM Notes Start: 03/09/18 09:27 Freq: Status: Active Protocol: Activity Type Activity Date Activity User E-Sign Co-Sign Detail Recorded Client Recorded Date Recorded By Document 03/09/18 09:45 [id number] 03/09/18 09:46 03/09/18 09:45 Wound Center Nurse 2 #1Upper Med Back -Time 09:45 -Correct Patient Yes -Correct Side, Site, Position Yes -Correct Procedure Yes -Procedure Performed Yes -Type of Procedure Debridement -Clinical Debridement Subcutaneous -Post Debridement Size (cm) - Length 0.6 -Post Debridement Size (cm) - Width 0.3 -Post Debridement Size (cm) - Depth 0.1 -Total Square Cm 0.18 -Wound/Ulcer Outcome Not Healed -Ulcer Cleansing Rinsed/ Irrigated with Saline -Foul Odor after Cleansing No -Bioengineered Tissue No -Bleeding Controlled with Pressure -Treatment Response Procedure Tolerated Well Pain Scale: 0-10 Numeric Is Patient Pain Free? Yes Wound debrided: #1 Upper back/posterior neck. Laterality: Not Applicable Wound Grade/Stage: 2. Type of Debridement: Excisional debridement Anesthesia Used: 4% Lidocaine Solution Depth: Down to and including healthy tissue, in the subcutaneous layer Percentage of wound debrided: 100 Instrument Used: 5mm curette Tissue Removed: subcutaneous tissue. Severity: Fat Layer Exposed Amount of bleeding with debridement: Mild Bleeding Controlled with: Pressure Patient tolerated procedure well Assessment/Plan Assessment: 1. Nonhealing ulcer upper back/posterior neck. 2. History of infected hematoma upper back/posterior neck. 3. s/p surgical preparation upper back/posterior neck with incision and drainage and excisional debridement infected hematoma (66 cm2). 4. Family history of skin cancer. 5. s/p excision 8 cm painful soft tissue mass upper back/posterior neck. Plan: Continue Jinny dressing changes daily. The ulcer is almost healed and will cancel the skin graft for tomorrow. The periwound rash has resolved and she has finished the Diflucan. The operative culture was negative. She is finished with the Levaquin. Her Prealbumin from 11/28/17 was 22.4. She takes nutritional supplementation with protein to help the healing process. Followup 3 weeks.
[2018-03-31 13:12] VITALS: BP 125/74; PULSE 98; RESP 16; TEMP 36.8; BMI 89.7
--- NOTE | 2018-03-31 20:41 | PCM.WC.PN ---
Type of Wound Date of Service: 03/31/18 Chief Complaint: Nonhealing ulcer upper back/posterior neck. History of Wound: Surgery 11/27/17 - Surgical preparation upper back/posterior neck with incision and drainage and excisional debridement infected hematoma (66 cm2). Wound care - Jinny dressings. Operative culture - Negative. She was treated perioperatively with Levaquin and has finished them. Prealbumin from 11/28/17 was 22.4. She takes nutritional supplementation with protein to help the healing process. The periwound rash has resolved and she has stopped the Diflucan. Today she denies fever. Her appetite is good. Progress of Wound: Healed. - Physical Exam Vital Signs Temp Pulse Resp BP 98.2 F 98 16 125/74 H 03/31/18 13:12 03/31/18 13:12 03/31/18 13:12 03/31/18 13:12 General: Alert, Oriented x3 HEENT: EOMI Oral: Moist Mucosa Neck: Supple Lungs: Clear to auscultation Cardiovascular: Regular rate, Regular Rhythm Abdomen: Soft, Non-Distended Extremities: No clubbing, No cyanosis, Edema - mild edema in lower extremities. Skin: Ulcer/ Wound - ulcer has healed. Wound Measurements and Assessment WC - Nurse 1 - General Ulcer Measurement Start: 03/09/18 09:27 Freq: Status: Active Protocol: Activity Type Activity Date Activity User E-Sign Co-Sign Detail Recorded Client Recorded Date Recorded By Document 03/31/18 13:12 [facility] [id number] 03/31/18 13:22 [facility] 03/31/18 13:12 Wound Center Nurse 1 [Ulcer Assessment] #1Upper Med Back -Combined with other wound No -Current Size (cm) - Length 0 -Current Size (cm) - Width 0 -Current Size (cm) - Depth 0 -Total Square Cm 0 -Date of Last Picture (Recall this 03/31/18 field) -Photo Taken Yes -Epithelialization Large 67-100% WC - Nurse 2 - General Ulcer CM Notes Start: 03/09/18 09:27 Freq: Status: Active Protocol: Activity Type Activity Date Activity User E-Sign Co-Sign Detail Recorded Client Recorded Date Recorded By Document 03/31/18 13:30 [id number] 03/31/18 13:32 03/31/18 13:30 Wound Center Nurse 2 [Procedure/Treatment] -Correct Patient No -Correct Side, Site, Position No -Correct Procedure No -Procedure Performed No -Post Debridement Size (cm) - Length 0 -Post Debridement Size (cm) - Width 0 -Post Debridement Size (cm) - Depth 0 -Total Square Cm 0 [See Physician Procedure note for Specifics] Pain Scale: 0-10 Numeric [Pain] -Is Patient Pain Free? Yes Neurological: Cranial nerves II-XII grossly intact Psych/Mental Status: Normal Affect, Appropriate Debridement Note Post-Debridement Measurements/Treatment WC - Nurse 2 - General Ulcer CM Notes Start: 03/09/18 09:27 Freq: Status: Active Protocol: Activity Type Activity Date Activity User E-Sign Co-Sign Detail Recorded Client Recorded Date Recorded By Document 03/09/18 09:45 [id number] 03/09/18 09:46 Document 03/31/18 13:30 [id number] 03/31/18 13:32 03/09/18 03/31/18 09:45 13:30 Wound Center Nurse 2 #1[facility] Back -Time 09:45 -Correct Patient Yes No -Correct Side, Site, Position Yes No -Correct Procedure Yes No -Procedure Performed Yes No -Type of Procedure Debridement -Clinical Debridement Subcutaneous -Post Debridement Size (cm) - Length 0.6 0 -Post Debridement Size (cm) - Width 0.3 0 -Post Debridement Size (cm) - Depth 0.1 0 -Total Square Cm 0.18 0 -Wound/Ulcer Outcome Not Healed -Ulcer Cleansing Rinsed/ Irrigated with Saline -Foul Odor after Cleansing No -Bioengineered Tissue No -Bleeding Controlled with Pressure -Treatment Response Procedure Tolerated Well Pain Scale: 0-10 Numeric Is Patient Pain Free? Yes Yes Wound debrided: #1 Upper back/posterior neck. Laterality: Not Applicable Wound Grade/Stage: 2. No debridement was completed today - the ulcer has healed. Assessment/Plan Assessment: 1. Ulcer upper back/posterior neck, healed. 2. History of infected hematoma upper back/posterior neck. 3. s/p surgical preparation upper back/posterior neck with incision and drainage and excisional debridement infected hematoma (66 cm2). 4. Family history of skin cancer. 5. s/p excision 8 cm painful soft tissue mass upper back/posterior neck. Plan: Can stop the Jinny dressing changes daily, because the ulcer has healed. The periwound rash has resolved and she has finished the Diflucan. The operative culture was negative. She is finished with the Levaquin. Her Prealbumin from 11/28/17 was 22.4. She takes nutritional supplementation with protein to help the healing process. Massage scar with skin lotion daily to help soften up the scar. Followup 3 months in the office.
== END 2018-04-02 23:59 ==
LOC: WC 08:19
PROVIDERS: Family Provider Student in an Organized Health Care Education/Training Program; PCP Student in an Organized Health Care Education/Training Program; Visit Provider Surgery
DX: L98.492 Non-pressure chronic ulcer of skin of other sites with fat layer exposed (principal); Z80.8 Family history of malignant neoplasm of other organs or systems; Z98.890 Other specified postprocedural states
CPT/HCPCS: 11042; 99212; G0463

== ENCOUNTER 2018-03-20 14:00 | Outpatient (RCR) | payer OTHER, SELFPAY | END 2018-04-02 23:59 | LOC: NS 14:00 | PROVIDERS: Family Provider Student in an Organized Health Care Education/Training Program; PCP Student in an Organized Health Care Education/Training Program; Visit Provider Student in an Organized Health Care Education/Training Program | DX: E66.01 Morbid (severe) obesity due to excess calories (principal); Z68.41 Body mass index [BMI] 40.0-44.9, adult; Z71.3 Dietary counseling and surveillance | CPT/HCPCS: 97803 ==

== ENCOUNTER 2018-03-23 06:09 | Day surgery (SDC) | payer OTHER, SELFPAY ==
[2018-03-23 06:27] VITALS: BP 133/77; PULSE 71; RESP 18; TEMP 37; O2SAT 97; BMI 39.2
--- NOTE | 2018-03-23 07:30 | RAD_ITS ---
STUDY: X-RAY - LUMBAR SPINE REASON FOR EXAM: Female, 52 years old. Radiofrequency ablation right L3-S1 level. TECHNIQUE: 9 intraoperative coned down view(s) of the lumbar spine were obtained. COMPARISON: None FINDINGS: Imaging provided for right L3-S1 radiofrequency ablation. RAD/L/S Spine Min 4 Views IMPRESSION: Intraoperative imaging provided for right L3-S1 radiofrequency ablation. Electronically Signed: Anshul Sams MD at 10:43 EDT Tel [phone], Service support ,
[2018-03-23] MEDS: MethylPREDNISolone Acetate 80 MG/ML Vial (07:58)
[2018-03-23] MEDS: Bupivacaine 0.25% 30 ML Vial (07:58)
[2018-03-23 08:05] VITALS: BP 129/72; BP 133/77; PULSE 80; RESP 22; TEMP 36.1; O2SAT 98
[2018-03-23 08:10] VITALS: BP 117/81; BP 133/77; PULSE 72; RESP 16; O2SAT 95
[2018-03-23 08:15] VITALS: BP 116/65; BP 133/77; PULSE 85; RESP 16; O2SAT 99
[2018-03-23 08:20] VITALS: BP 133/77; BP 139/78; PULSE 69; RESP 16; TEMP 36; O2SAT 98
[2018-03-23 08:38] VITALS: BP 133/77
--- NOTE | 2018-03-23 11:06 | PCM.OPRPT ---
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 Status: Chronic (2) Spondylosis of lumbosacral region without myelopathy or radiculopathy Status: Chronic Report of Operation Date of Procedure: 03/23/18 Pre-Operative Diagnosis: Lumbosacral spondylosis, lumbosacral degenerative disc disease, lumbar facet arthropathy Post-Operative Diagnosis: Lumbosacral spondylosis, lumbosacral degenerative disc disease, lumbar facet arthropathy Surgery/Procedure Performed:: Right-sided lumbar radiofrequency ablation of the medial branch at L3, L4, L5, S1 Description of Surgical Findings:: PROCEDURE: Right-sided radiofrequency ablation of the medial branch L3, L4, L5, S1 PREOPERATIVE DIAGNOSES: Lumbosacral spondylosis, lumbosacral degenerative disc disease, lumbar facet arthropathy POSTOPERATIVE DIAGNOSES: Lumbosacral spondylosis, lumbosacral degenerative disc disease, lumbar facet arthropathy ANESTHESIA: MAC COMPLICATIONS: None BLOOD LOSS: Minimal PROCEDURE IN DETAIL: History and physical today was reviewed. Risks and benefits of procedure explained. The patient understood, agreed to the procedure and informed consent was obtained. IV inserted per routine protocol. The patient was taken to the operating room, placed in the prone position with a pillow positioned underneath the abdomen. The right side of the lower back was prepped and draped in a sterile fashion using iodine x 3. Under fluoroscopy guidance, on an oblique view, the L3 through S1 vertebral bodies were visualized. The skin and subcutaneous tissue was anesthetized with approximately 10 mL of 1% lidocaine using a 25-gauge regular needle. Under direct visualization with fluoroscopy at approximately 25-degree angle, starting on the right L3, ending on the right S1 passing through the L4-L5 using a 20-gauge 15 cm with a 10 mm curved active tip radiofrequency ablation needle the needle passed through the skin. The tip of the needle was maneuvered and directed towards the superior and medial gutter of the transverse process at the vicinity of the medial branch. Once the tip of the needle was in contact with the bone, the needle pulled approximately 2 mm up the bone. The stylet of each needle was then removed. After negative aspiration of blood with CSF and confirmation of AP as well as oblique view, radiofrequency ablation probe was then inserted at each level. Impedance was then recorded at L3 to be 223, at L4 259, at L5 300, at S1 288 ohm. Motor-evoked potential was then initiated to 1.5 volt without any motor response at each corresponding level. The probe was then removed intact and a total of 6 mL preservative-free 1% lidocaine was injected in divided doses between those 4 levels after negative aspiration of blood with CSF. The radiofrequency ablation probe was then reinserted after confirmation of AP, oblique as well as lateral view. Radiofrequency ablation was then initiated to 80 degrees Celsius for 90 seconds at each level. Once concluded, the probe was then removed intact and a total of 6 mL of preservative-free 0.25% Marcaine with 40 mg Depo-Medrol was injected in divided doses between those 4 levels. The needles were then removed intact. The patient experienced no signs or symptoms of intrathecal, intravascular injection. The patient experienced no paraesthesia. The procedure was completed without any apparent difficulty, any complication. The patient appeared to tolerate well. Sensory as well as motor exam was unchanged from prior to procedure. ASSESSMENT AND PLAN: This is a 52-year-old Female with lumbosacral spondylosis, lumbosacral degenerative disc disease, lumbar facet arthropathy, status post right-sided radiofrequency ablation of the medial branch L3 through S1. The patient will continue her current medications. The patient will follow up in approximately 2 weeks for reevaluation.
== END 2018-03-23 08:50 | disposition home or self-care (01) ==
LOC: SDC 06:10 → AC 06:12
PROVIDERS: Family Provider Student in an Organized Health Care Education/Training Program; PCP Student in an Organized Health Care Education/Training Program; Visit Provider Anesthesiology Pain Medicine
PROC: (CPT 62282; principal; 2018-03-23 07:15)
DX: M47.817 Spondylosis without myelopathy or radiculopathy, lumbosacral region (principal); M51.37 Other intervertebral disc degeneration, lumbosacral region; M46.96 Unspecified inflammatory spondylopathy, lumbar region; J45.909 Unspecified asthma, uncomplicated; G47.33 Obstructive sleep apnea (adult) (pediatric); J44.9 Chronic obstructive pulmonary disease, unspecified; R52 Pain, unspecified; M79.1 Myalgia; M50.30 Other cervical disc degeneration, unspecified cervical region; M47.812 Spondylosis without myelopathy or radiculopathy, cervical region; M48.9 Spondylopathy, unspecified; Z79.891 Long term (current) use of opiate analgesic
CPT/HCPCS: 62282 ×3; 72110; 76000; J7120

== ENCOUNTER → 2018-04-03 07:54 | Outpatient (CLI) | payer OTHER, SELFPAY | PROVIDERS: Family Provider Student in an Organized Health Care Education/Training Program; PCP Student in an Organized Health Care Education/Training Program; Visit Provider Surgery | DX: Z53.9 Procedure and treatment not carried out, unspecified reason (principal) ==

== ENCOUNTER 2018-05-01 10:30 | Outpatient (RCR) | payer OTHER, SELFPAY ==
--- NOTE | 2018-04-13 14:50 | DT_ITS ---
This patient was seen during an EMR downtime April 06, 2018 - April 13, 2018. This patient may have a combination of paper and electronic documentation or all paper documentation. All documentation is viewable within the e-chart portion of [facility] for each patient visit.
== END 2018-05-02 23:59 ==
LOC: NS 10:30
PROVIDERS: Family Provider Student in an Organized Health Care Education/Training Program; PCP Student in an Organized Health Care Education/Training Program; Visit Provider Student in an Organized Health Care Education/Training Program
DX: E66.01 Morbid (severe) obesity due to excess calories (principal); Z68.41 Body mass index [BMI] 40.0-44.9, adult; Z71.3 Dietary counseling and surveillance
CPT/HCPCS: 97803

== ENCOUNTER 2018-05-11 13:00 | Outpatient (RCR) | payer OTHER, SELFPAY ==
--- NOTE | 2018-04-28 14:33 | HP.PTEVAL ---
Patient's Visit Information GAY SHAFER is a 52 year old F referred to Physical Therapy by Everton Acevedo with a diagnosis of CERVICAL AND LUMBAR DDD WITH RADICULOPATHY.. Date of Evaluation: 04/28/18 Physical Therapist: Claudia Downing - Visit Plan Frequency: 2x /Week Duration: 4 Weeks Plan: AQUATIC THERAPY FOR PAIN RELEIF, POSTURE CORRECTION/STRENGTHENING, INSTRUCTION IN APPROPRIATE BODY MECHANICS AND ACTIVITY MODIFICATIONS. DLS STARTING WITH A NEUTRAL SPINE. RUBÉN UE AND LE ROM, STRETCHING AND STRENGTHENING. HEP INSTRUCTION. - Subjective Subjective: PATIENT REPORTS SX'S IN NECK, BACK, RIGHT FINGERS, AND RUBÉN LE'S. NO PAIN OR N/T IN LEGS, JUST WEAKNESS. RIGHT FINGERS HAVE INTERMITTENT TINGLING. INCREASED SX'S WITH TURNING HEADLEFT OR RIGHT, MOVING ANKLE IN [place], TWISTING IN SITTING, BENDING BACKWARDS, DRIVING, WALKING, STANDING. DECREASED SX'S WITH [facility] THERAPY, HE[facility] L[facility] PT AT [facility], [facility], MEDICINE. AUG 2017 SAW SPINE SURGEON - SURGERY NOT RECOMMENDED AT THAT TIME. OCCUPATION - UNEMPLOYEED. NECK PAIN RANGING 6-10/10, LOW BACK PAIN RANGIN 6-8/10 AND LEFT ANKLE PAIN RANGIN 8-9/10. NECK X-RAYS AND MRI ABOUT 9 MONTHS AGO. LUMBAR X-RAYS AND MRI ABOUT 9 MONTHS AGO. PMH: LEFT ANKLE ISSUES WITH SURGERY PENDING - DATE/MRI NOT SCHEDULED. WEARING BRACE WBAT. ASTHMA. SEP 2017 LIPOMA REMOVED FROM NECK AND GOT STAPH INFECTION. CLEARED BY DR. PIERRE ABOUT A WEEK AGO (MARCH 31) TO GET BACK IN POOL PER PATIENT REPORT. COPD, IBS, LEFT HEARING AID (NEDDS RIGHT), IRREGULAR HEART BEAT. TRYING TO GET INTO PULMONARY REHAB. PSORIASIS. - Pain Cervical Spine Pain Intensity (Out of 10): 7 Pain Intensity Range: 6, 10 Lumbar Spine Pain Intensity (Out of 10): 8 Pain Intensity Range: 6, 8 - Objective UPON EXAM, LUMBAR MVMT LOSS IS FOLLOWS: FLEX - NIL, EXT - CHINTAN, RUBÉN SG - CHINTAN. C/O PAIN WITH EXT AND SG TESTING. UNABLE TO TRANSFER SIT TO STAND WITHOUT UE ASSIST. PT LEANS ON RIGHT FOREARM TO HELP HERSELF UP FROM CHAIR. RIGHT GEOPHYSICAL PROSPECTING PERMIT AGENT 55LBS, LEFT GEOPHYSICAL PROSPECTING PERMIT AGENT 45LBS. RUBÉN UE AROM WFL. RUBÉN UE STRENGTH GROSSLY 4-5/5 WITH MMT. POSITIVE RUBÉN LE DURAL SIGNS RIGHT > LEFT. SLS TEST WITH LEFT ANKLE BRACE ON = 3 S ON LEFT AND 10 SEC ON RIGHT WITHOUT UE ASSIST. RUBÉN LE STRENGTH GROSSLY 4-5 WITH MMT XECEPT LEFT ANKLE ONLY TESTED DORSIFLEX 4/5 AND GOOD RUBÉN HIP FLEX ROM AND GOOD RUBÉN KNEE FLEX ROM TO 135 DEG. FULL RUBÉN KNEE EXT ROM. CERVICAL MVMT LOSS: AROM W/MOD LIMITATION ALL PLANES DUE TO PT STOPPIING TO AVOID PAIN (FLEX MIN LOSS). OBSERVATION: LARGE POST CERVICAL SCAR WITHOUT ANY OPEN AREAS NOTED. - Goals Goal 1:: DECREASE C/O SPINE PAIN Goal Time Frame: 4-6 Weeks Goal 2:: IMPROVE STANDING, WALKING, AND ADL FUNCTION Goal Time Frame: 4-6 Weeks Goal 3:: INDEP WATER EX PROGRAM Goal Time Frame: 4-6 Weeks Goal 4:: INSTRUCT IN PROPHYLAXIS Goal Time Frame: 4-6 Weeks - Rehabilitation Potential Rehabilitation Potential: Fair - Anticipated Interventions Patient/Client Instruction: Educate patient on: Condition, Plan of Care, Risk Factors, Benefits of Fitness Program For the Purpose of:: To improve self management Therapeutic Exercise to Include: Strength training, Body mechanics, Postural training, Flexibilty training, In an aquatic setting, Active ROM, Dynamic Lumbar Stabilization, Scapular Strength/Stabilization For the Purpose of:: To decrease pain, To increase ROM, To improve muscle performance and motor function, To increase tolerance to activity/condition/position, To improve ability of physical actions for home/community/work/leisure, To improve gait and locomotor functions Thank you for the opportunity to evaluate your patient. For Medicare and Medicare HMO plans, please review the plan of care and approve it. It will need to be FAXED BACK to us at [phone] for Medicare purposes. Please let me know if there are questions or concerns regarding this plan of care. Physician Signature: Date:
--- NOTE | 2018-05-11 13:39 | HP.PTDCSUM_ITS ---
HP - PT D/C Summary It has been my pleasure to treat GAY SHAFER under orders from Everton Acevedo, for the diagnosis of CERVICAL AND LUMBAR DDD WITH RADICULOPATHY. for a total of 8 visit(s). Discharge Date: Please see the following information for a summary of their discharge status. - Subjective Subjective: ANKLE SURGERY PENDING 05/15/18. CAUDAL INJECTIONS SCHEDULED . PATIENT REPORTS SHE KNOWS SHE NEEDS TO MOVE AND THE WATER HELPS TAKE THE WEIGHT OFF HER JOINTS AND SHE THINKS THE WATER EX IS A POSITIVE. SHE REPORTS SHE HAS MORE MOVEMENT AND CAN DO MORE IN [place] THAN [place]. OVER-ALL THOUGH - SHE DOESN'T SEE A CHANGE IN HER PAIN OR FUNCTION. PATEINT REPORTS SHE HAD A NECK, THORACIC AND LEFT ANKLE MRI'S RECENTLY (APRIL 30 AND OTHER). SHE REPORTS SHE HAD THE SPINE TESTS AT [facility] AND HAS BEEN REFERRED TO DR. BULLARD JUL 28 AND WILL GET THE RESULTS THEN. - Pain Cervical Spine Pain Intensity (Out of 10): 7 Lumbar Spine Pain Intensity (Out of 10): 8 - Objective Objective/Function: MINIMAL TO NO CHANGE WITH EXAM TODAY COMPARED TO INITIAL EVAL. UPON EXAM, LUMBAR MVMT LOSS IS FOLLOWS: FLEX - NIL, EXT - CHINTAN, RUBÉN SG - CHINTAN. C/O PAIN WITH EXT AND SG TESTING - STABBING. UNABLE TO TRANSFER SIT TO STAND WITHOUT UE ASSIST. PT LEANS TO THE RIGHT TO HELP HERSELF UP FROM CHAIR. RIGHT HOTEL NIGHT AUDITOR 63LBS, LEFT HOTEL NIGHT AUDITOR 65LBS. RUBÉN UE AROM WFL. RUBÉN UE STRENGTH GROSSLY 4-5/5 WITH MMT. NEGATIVE RUBÉN LE DURAL SIGNS. 10 SEC ON RIGHT WITHOUT UE ASSIST AND LLE NT. RUBÉN LE STRENGTH GROSSLY 4-5 WITH MMT EXCEPT LEFT ANKLE NT. CERVICAL MVMT LOSS: FLEX - NIL, PRO - NIL, RET - CHINTAN, EXT - MOD, RUBÉN SB - MOD, RUBÉN ROT - MOD. PATIENT HAS C/O PAIN WITH CERVICAL ROM TESTING ALL PLANES. NECK AND BACK OSWESTRY SCORES ARE UNCHANGED SINCE INITIAL EVAL. - Goals Goal 1:: DECREASE C/O SPINE PAIN Goal Progress: Not Progressing Goal 2:: IMPROVE STANDING, WALKING, AND ADL FUNCTION Goal Progress: Not Progressing Goal 3:: INDEP WATER EX PROGRAM Goal Progress: Not Progressing Goal 4:: INSTRUCT IN PROPHYLAXIS Goal Progress: Not Progressing - Plan Plan: D/C DUE TO LACK OF PROGRESS, PENDING ANKLE SURGERY, CAUDAL INJECTIONS AND CONSULT WITH DR. BULLARD. - D/C Information If there are questions or concerns regarding this patient's physical therapy, please feel free to call me at [phone]. Thank you for the referral of this patient. Sincerely, Claudia Downing
== END 2018-05-11 14:17 | disposition home or self-care (01) ==
LOC: PT 13:00
PROVIDERS: Family Provider Student in an Organized Health Care Education/Training Program; PCP Student in an Organized Health Care Education/Training Program; Visit Provider Student in an Organized Health Care Education/Training Program
DX: M50.10 Cervical disc disorder with radiculopathy, unspecified cervical region (principal); M51.16 Intervertebral disc disorders with radiculopathy, lumbar region
CPT/HCPCS: 97113; 97162; 97164

== ENCOUNTER 2018-06-05 08:40 | Outpatient (RCR) | payer OTHER, SELFPAY | END 2018-07-03 23:59 | LOC: NS 08:40 | PROVIDERS: Family Provider Student in an Organized Health Care Education/Training Program; PCP Student in an Organized Health Care Education/Training Program; Visit Provider Student in an Organized Health Care Education/Training Program | DX: E66.01 Morbid (severe) obesity due to excess calories (principal); Z68.41 Body mass index [BMI] 40.0-44.9, adult; Z71.3 Dietary counseling and surveillance | CPT/HCPCS: 97803 ==

== ENCOUNTER 2018-07-10 08:18 | Outpatient (RCR) | payer OTHER, SELFPAY | END 2018-08-02 23:59 | LOC: NS 08:18 | PROVIDERS: Family Provider Student in an Organized Health Care Education/Training Program; PCP Student in an Organized Health Care Education/Training Program; Visit Provider Student in an Organized Health Care Education/Training Program | DX: E66.01 Morbid (severe) obesity due to excess calories (principal); Z68.41 Body mass index [BMI] 40.0-44.9, adult; Z71.3 Dietary counseling and surveillance | CPT/HCPCS: 97803 ==

== ENCOUNTER → 2018-07-27 13:08 | Outpatient (CLI) | payer OTHER, SELFPAY ==
--- NOTE | 2018-07-27 13:18 | PCM.PR.DAT ---
Dates of Coverage Times for Dates Of Coverage; All dates of coverage are for physician supervision/medical records coordinator for during the times of 08:00 AM through 4:30 PM. Effective Jul 04, 2013 our hours will be changing to 8:00 to 4:30 on Friday, Friday and Friday. First Date of the Month: 07/27/18 Last Date of the Month: 08/02/18
--- NOTE | 2018-07-27 13:19 | PCM.PR.HP ---
History of Present Illness Arrival date:: 07/27/18 Arrival time:: 13:19 Date of Referral:: 07/08/18 Date of Evaluation: 07/27/18 Referring Physician: Dr. Everton Acevedo Primary Diagnosis: Asthma History of Present Illness: Patient is a 52 yr old female patient of Dr. Everton Acevedo who presents to pulmonary rehab today for her asthma. THe patient has had other medical issues to deal with and recently has become more short of breath with activities of daily living. mMRC Breathless Scale: When is the patient short of breath? Y/N Grade: Description of Breathlessness: 0 I only get breathless with strenuous exercise. 1 I get short of breath when hurrying on level ground or walking up a slight hill. 2 On level ground, I walk slower than people of the same age because of breathless, or have to stop for breath when walking at my own pace. 3 I stop for breath after walking 100 yards or after a few minutes on level ground. 4 I am too breathless to leave the house or I am breathless when dressing. Respiratory Problems: Yes: Limited Range of Motion, Fatigue, Able to Speak in Full Sentences, Anxiety, Dyspnea with Activity, Dyspnea Lying Down Flat No: Retain Secretions, Chest Pain, Wheezing, Dizziness, Ankle Swelling, Hoarseness, Cough with Secretions Home Medications: Home Medications Albuterol Aerosols [Ventolin Aerosols] 2.5 mg INHALATION Q6H PRN PRN 09/22/17 Albuterol Inhaler [Ventolin Hfa] 2 puff INHALATION Q4H PRN PRN 09/22/17 Baclofen [Lioresal] 10 mg PO TID 09/22/17 Calcium Carbonate/Vitamin D3 [Calcium 500-Vit D3 200 Tablet] 1 ea PO DAILY 09/22/17 Diclofenac Sodium 100 gm TP 4X/DAY 09/22/17 Diclofenac [Voltaren] 75 mg PO BIDCM 09/22/17 Econazole [Spectazole] 1 applic TOPICAL DAILY 09/22/17 Estrogens, Conjugated [Premarin] 0.9 mg PO DAILY 09/22/17 Fluoxetine [Prozac] 40 mg PO DAILY 09/22/17 Linaclotide [Linzess] 290 mcg PO DAILY 09/22/17 Mirabegron [Myrbetriq] 25 mg PO DAILY 09/22/17 Mirtazapine [Remeron] 22 mg PO QHS 09/22/17 Pregabalin [Lyrica] 100 mg PO TID 09/22/17 Pyridoxine HCl [Vitamin B-6] 100 mg PO DAILY 09/22/17 buPROPion SR [Wellbutrin SR (150mg tablets)] 150 mg PO BID 09/22/17 Fluticasone/Salmeterol [Advair 250/50 Mcg Diskus] 1 puff INHALATION BID 11/26/17 Docusate Sodium [Colace] 100 mg PO BID cap 11/29/17 Lactobacillus Combo No.11 [Probiotic] 1 ea PO DAILY #60 cap.sprink 11/29/17 Cholecalciferol (Vitamin D3) [Vitamin D3] 1,000 unit PO DAILY 03/18/18 Cyanocobalamin [Vitamin B12] 500 mcg PO DAILY@0800 03/18/18 guselkumab 100 mg/mL subcutaneous syringe 100 mg SC Q8W 07/23/18 metoprolol succinate ER 25 mg capsule sprinkle, ext. release 24 hr mg PO 07/23/18 Allergies/Adverse Reactions: Allergies nabumetone Allergy (Verified 07/23/18 14:48) Hives thimerosal Allergy (Verified 07/23/18 14:48) Other PER ALLERGY TESTING naproxen [From Naprosyn] Adverse Reaction (Verified 07/23/18 14:48) Other oxycodone HCl [From Percocet] Adverse Reaction (Verified 07/23/18 14:48) Other birds Allergy (Uncoded 07/23/18 14:48) Other molds Allergy (Uncoded 07/23/18 14:48) Other seasonal Allergy (Uncoded 07/23/18 14:48) Other - Secretions Thick:: No Thin:: No Cough:: No Hx of Sleep Apnea: Yes Do you snore loudly (louder than talking or can be heard through closed doors)?: Yes Do you often feel tired/ fatigued/ sleepy during daytime?: Yes Has anyone observed you stop breathing during sleep?: Yes History of Hypertension (for STOP score): No - Patient insomnia and OLGA and uses BiPaP at HS w/o oxygen STOP Results: Positive Medical Utilization Do you use a peak flow meter at home?: No Do you use a spacer device with your inhalers?: No Number of hospital visits in the last year?: 1 - 2-days surgery 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 Number of emergency room visits in the last year?: 0 Do you see your physician on a regular schedule?: Yes How often?: Sibilia 6 mo, PCP 3 mo Advanced Directives - Advanced Directives Power of Consulting Practice Manager: No Living Will: No Advance Directives Information Provided: Yes Advance Directives on File: No DNR Order?:: No - MOLST See MOLST form: No Past Medical History Medical History: Past Medical History (Last Updated 11/10/17 @ 14:38 by Bonilla Alvarez MD) Lipoma of back (Chronic) D17.1 8 cm lipoma upper back/posterior neck Postoperative seroma of subcutaneous tissue after dermatologic procedure (Acute) L76.33 Arthritis M19.90 Asthma J45.909 BREAST LUMP OR CYST Bloating R14.0 Carpal tunnel syndrome G56.00 Cataract H26.9 Depression F32.9 GASTROINTESTIONAL PROBLEMS Hearing problem H91.90 History of migraine headaches Z86.69 Hives L50.9 IBS (irritable bowel syndrome) LIPOMA UPPER BACK/POSTERIOR NECK Leg weakness R29.898 Mass in neck R22.1 OAB (overactive bladder) N32.81 Osteoarthritis M19.90 Pneumonia J18.9 Polycystic ovary E28.2 Psoriasis L40.9 Recurrent infections B99.9 SPINAL STENOSIS - MULTIPLE BACK ISSUES Seasonal allergies J30.2 Vision problems H54.7 Surgical History: Past Surgical History (Last Updated 10/07/17 @ 14:20 by Amaris Reyna) ADENOIDS AND TONSILS 1975 CATARACT L & R, TORIC LENS REPLACEMENT 2016 COMPLETE HYSTERECTOMY WITH BSO 2015 Deviated septum J34.2 EXCISION 8 CM PAINFUL SOFT TISSUE MASS UPPER BACK/POSTERIOR NECK - 09/23/17 H/O bilateral breast reduction surgery Onset Date: ~2012 Z98.890 RADIOFRQUENSY ABLATION 2016 Family History: Family History (Last Updated 11/10/17 @ 14:38 by Bonilla Alvarez MD) Father Hypertension Mother Arthritis Hypertension Cancer Brother Alcohol abuse Aunt Diabetes Grandfather Alcohol abuse Grandfather Psychiatric care Cancer CVA (cerebral vascular accident) Grandmother Alcohol abuse Grandmother Arthritis Depression Other Family history of basal cell carcinoma Family history of skin cancer - Current/ Previous Services Pulmonary Rehab:: No Social History - Smoking History Smoking Status: Never smoker Hx Tobacco Use: No Hx Smoking Exposure: No - Alcohol Use Alcohol Usage: No - Substance Abuse Hx Substance Use: No - Occupation Occupation (List type of work in comments):: Unemployed - middle of obtaining disability - Hobbies, Recreation, Social Activities Hobbies: Sewing - cross-stiching, Reading, Other - pets animals Recreational Activities: I am able to engage in a few activities - recovery from left foot surgery and chronic back pain Functioning ADL/IADL - Current Ability Current Ability: Independent Self-Care (e.g.,grooming, dressing, & bathing), Independent Ambulation - uses rollator walker device, Independent Transfer, Independent Household tasks (e.g., light meal prep, laundry, shopping) - Pt Functioning Prior to Problem Prior Functioning: Self-Care (e.g.,grooming, dressing, & bathing): Independent, Ambulation: Independent - uses rollator rolled walker device, Transfer: Independent, Household tasks (e.g., light meal prep, laundry, shopping): Independent Social Environment - Status Marital Status: - Current Living Arrangements Living Environment:: Spouse - Children How many children do you have?: 0 - unable to have children Do any of your children live nearby?: No - Safety Do you feel safe in your surroundings?: Yes - Assistance Do you need any assistance at home?: has been helping with home chores etc. Review of Systems Review of Systems: Right click = Denies (Slash). Left click = Reports ([place]) Respiratory: Reports: SOB at Rest, SOB upon Exertion, Wheezing, Appetite, Normal - emotional eater; suffers from depression adn eats to deal with emotions., Fatigue. Denies: Cough, Pleuritic Pain, Sputum production, Dizziness/Lightheadedness, Sleep, Normal - fall asleep on couch routinely then goes to bed but irregular sleep pattern due to insomnia. Is Patient Pain Free?: Yes Pain Location: neck, back, lower extremity - bilateral knee pain, and ankles. Pain Level: 8/10 Previous experience dealing with pain?: injections in neck and back, nerve ablations Risk Factor Assessment - Vital Signs Temperature: 98.7 F Pulse Rate: 77 - at rest Respiratory Rate: 20 Pulse Ox: 95 - room air Blood Pressure: 116/70 Nailbeds:: nails are painted - Diabetes Nutrition Referral for Diabetes: No - Obesity Height: 5 ft 7 in Weight:: 235 lb - down from 265 Weight in Pounds: 235.0 lbs Weight Source: Standing Scale Body Mass Index (BMI): 36.8 Nutritional Referral for Obesity: Yes - Physical Activity Physical Inactivity: None - For Smoking Smoking Risk Guidelines: Smoking Low Risk: None or quit greater than 6 months ago. Smoking Moderate Risk: Smoker or quit 6 months or less ago. Smoking High Risk: Smoker - For Dyslipidemia Dyslipidemia Risk Guidelines: Low Risk: Moderate Risk: High Risk: 15-25% fat 25.1-29% fat >/= 30% fat. <7% sat fat 7-9% sat fat >9% sat fat. <150 mg chol 150-299 mg chol >/= 300 mg chol. LDL <100 LDL 100-129 LDL >/= 130. Chol/HDL ratio <5.0 Chol/HDL ratio 5.0-6.0 Chol/HDL ratio >6.0. Triglycerides <100 Triglycerides 100-149 Triglycerides >/= 150 - For Diabetes Mellitus Diabetes Risk Guidelines: Diabetes Low Risk: HgA1c <6.5% and/or FBG <120. Diabetes Moderate Risk: HgA1c 6.6-7.9% and/or FBG 120-180. Diabetes High Risk: HgA1c >/= 8% and/or FBG >180 - For Obesity/Overweight Obesity/Overweight Risk Guidelines: Obesity Low Risk: BMI <25.0. Obesity Moderate Risk: BMI 25-29.9. Obesity High Risk: BMI >/= 30.0 - For Hypertension Hypertension Risk Guidelines: Hypertension Low Risk: Systolic <120 and Diastolic <80. Hypertension Moderate Risk: Systolic 120-139 and Diastolic 80-89. Hypertension High Risk: Systolic >/= 140 and Diastolic >/= 90 - For Sedentary Lifestyle Sedentary Lifestyle Risk Guidelines: Sedentary Lifestyle Low Risk: >/= 1,500 kcal/week. Sedentary Lifestyle Moderate Risk: 700-1,499 kcal/week. Sedentary Lifestyle High Risk: < 700 kcal/week - For Depression Depression Risk Guidelines: Depression Low Risk: Not clinically depressed. Depression Moderate Risk: Mildly depressed. Depression High Risk: Clinically depressed Motivation - Motivation to Participate On a scale of 1 to 10, how prepared are you to commit to attending program?: 10 What do you see as barriers to successfully being able to complete the program?: left foot, and maybe pain. What do you see as the benefits of succesfully completing the program? In other words, what do you hope to get out of participating in the program?: hoping to be able to breath better, more active at home Are there issues you are dealing with that will interfere with completing the program?: left foot surgery, back cervical pain; no other problems. Do you have a spouse or signficant other, family or friends who will help support you to complete the program?: excellent support Diagnostic Data Review - 6 Minute Walk Test 6 Minute Walk Test: none recorded - Pulmonary Function Test FEV1:: 0 - scheduled for
--- NOTE | 2018-07-27 13:37 | PR.ITP_ITS ---
General Information - General Information Admitting Diagnosis: Asthma - PFT FEV1:: 0 - scheduled for 07/31/18@11:00 am - Education/Goals Barriers to Learning: Vision Impairment Individual Counseling: Initial Assessment: Dyspnea control techniques at rest, activity, and ADLs, ADL management and pacing, Panic & depression management, Nutrition & weight management, Home exercise plan & guidelines Patient Goals: Breathe better: Initial Assessment, Increase endurance/stamina: Initial Assessment, Return to recreation/hobby: Initial Assessment, Improve diet and nutrition: Initial Assessment, Improve weight: Initial Assessment Exercise - Initial Assessment - Visit Date of Eval: 07/27/18 - scheduled to start after 08/03/18 - Problem/Goals Problems: Deconditioning, No regular exercise, Knowledge deficit exercise guidelines, Knowledge deficit exercise safety Goals:: Aerobic exercise 30-60 mins x 9 weeks - Exercise Prescription Mode:: Airdyne, NuStep, Arm Ergometer Frequency (x/week): 3 Duration:: 30 MET LEVEL:: 2 HR (bpm):: 125 - 116-125 THRR Exercise Progression: as tolerated by patient and program protocol. - Plan Plan and Plan to Review:: Benefits of exercise, Core components of exercise, How to measure dyspnea level, How to monitor dyspnea level, Exercise intensity, Exercise safety guideline, Home exercise guidelines, Thomas: 3-4/11-13 Disease Management - Initial - Problems/Goals-Medications Medication Goals: Adherence to prescribed medications, Correct technique/timing & care of MDI, DPI, nebulizer, and spacer. - Problems/Goals-Bronchial Hygiene Bronchial Hygiene Problems:: Respiratory infection Prevention/Management Bronchial Hygiene Goals:: Pt demonstrates effective cough, effective secretion clearance., Pt describes signs and symptoms of infection. - Initial Assessment SpO2:: 95 FiO2:: 21 Does pt report taking home meds as prescribed?: Yes Medications: Yes MDI, Yes NEB, Yes Spacer Patient Reports:: No cough - Plans Hypoxemia Plan:: Monitor SpO2 rest & with exercise, Train appropriate O2 use with exercise Reviewed prescribed medications:: Purpose, Schedule, Side effects, Importance of compliance Instruct correct technique/timing & care:: MDI, DPI, Nebulizer, Return demo use of inhaler Bronchial Hygiene Plan: Vibratory PEP device, Hydration, Hand hygiene, Signs/symptoms to report: Psychosocial - Initial Assess - Problems/Goals Problems: Depression - Chronci depressive disorder currently medicated for., Anxiety, Ineffective coping, Impaired Q.O.L. Psychosocial Goals: Improved Q.O.L. - Psychosocial Test Depression:: Impaired QOL Tests Completed: SF - 36 survey completed, Mood Scale Test Referred to MD for counseling:: No - Plan Reviewed screening results: Yes Instructions given regarding:: Benefits of exercise, Relaxation techniques, Training in coping strategies Stress management: On meds currently, Receiving counseling Tobacco - Initial Assessment - Program Goals Tobacco Program Goals: Complete smoking cessation. Attend education classes. Improve Knowledge Test score - Stage of Change Stages of Change:: Action - Learning Barriers Learning Barriers: Vision, Ready to Learn - Family Support Do you have family support?: Yes - Tobacco Use Tobacco Use: Non-smoker Do you use smokeless tobacco?: No - Intervention Smoking Cessation Referral:: No Individual Education/Counseling:: No Education Schedule Given:: Yes - Education Gave Education Materials For:: Pulmonary Disease, Risk Factors, Breathing Techniques, Medical Compliance, Pulmonary A&P, Exacerbation Signs & Symptoms, Stress & Relaxation Nutrition/Wt Mgmt - Initial - Problems/Goals Problems: Overweight Goals: Wt Loss 1-2 lbs per week - Weight Management Knowledge Deficit Management of:: Overweight Admit Height:: 5 ft 7 in Admit Weight:: 235 lb - currently down from 265 Admit BMI:: 36.8 - Diabetes Diabetes:: No Insulin: No Do you monitor your blood sugar at home?: No - Intervention Referral to dietitian:: No Referral to Diabetic Clinic:: No Will attend diet classes:: Yes - Plan Nutrition Plan: Yes Review BMI or WC & identify target wt & strategies for wt control, Yes Medication education class [Prednisone]:, Yes Weight control education class: Patient Health Questionnaire Initial Assessment 1. Little interest or pleasure in doing things: More than half the days 2. Feeling down, depressed, or hopeless: Nearly every day 3. Trouble falling or staying asleep, or sleeping too much: Nearly every day 4. Feeling tired or having little energy: Nearly every day 5. Poor appetite or overeating: Nearly every day 6. Feeling bad about yourself -- or that you are a failure or have let yourself or your family down: Nearly every day 7. Trouble concentrating on things, such as reading the newspaper or watching television: Nearly every day 8. Moving or speaking so slowly that other people could have noticed. Or the opposite - being so fidgety or restless that you have been moving around a lot more than usual: Not at all 9. Thoughts that you would be better off , or of hurting yourself in some way: Not at all How difficult have these problems made it for you to do your work, take care of things at home, or get along with other people?: Somewhat difficult Total Score: 20 COPD Knowledge Test Initial COPD is a lung disease that:: Makes it hard to breathe & gets worse over time In the [place] the term COPD describes 2 main lung conditions:: Emphysema & chronic bronchitis The most common lung irritant that causes COPD is:: Cigarette smoke Common signs and symptoms of COPD include:: An ongoing cough/cough that produces a large amount of mucus, & SOB If you have COPD, what steps can you take?: All of the above Swelling of the ankles is common in COPD:: True Fatigue [tiredness] is common in COPD:: True Wheezing is common in COPD:: True Crushing chest pain is common in COPD:: True Rapid weight loss is common in COPD:: False Breathlessness is a normal response to exercise: False Exercise should be avoided if it makes you short of breath: False All bronchodilators act within 10 minutes: False A spacer device increases the medication to the lungs: True Annual flu vaccine is recommended for pts w/lung disease: True COPD Knowledge Test Total Score:: 12 COPD Assessment Test [CAT] - Questions Never cough = 0, Cough all the time = 5: 0 No phlegm = 0, Chest full of phlegm = 5: 1 No chest tightness = 0, Chest very tight = 5: 5 No breathless w/exertion = 0, Very breathless w/exertion = 5: 5 No limitations w/activity = 0, Very limited w/activity = 5: 4 Confident leaving home = 0, Not at all confident = 5: 2 Sleep soundly = 0, Don't sleep soundly = 5: 5 Lots of energy = 0, No energy at all = 5: 4 Total CAT score:: 26 Self-Efficacy Initial Assessment We would like to know how confident you are in doing certain activities. Please select your confidence level for:: Select your confidence level for the following using the scale 1-10 where 1 is not at all confident and 10 is totally confident. Your score is the average of all 6 responses. Fatigue: How confident are you that you can keep the fatigue caused by your disease from interfering with the things you want to do? Select Number: 8 Physical Discomfort or Pain: How confident are you that you can keep the physical discomfort or pain of your disease from interfering with the things you want to do? Select Number: 9 Emotional Distress: How confident are you that you can keep the emotional distress caused by your disease from interfering with the things you want to do? Select Number: 10 Other Symptoms or Health Problems: How confident are you that you can keep other symptoms or health problems from interfering with the things you want to do? Select Number: 9 Different Tasks and Activities: How confident are you that you can do the d ifferent tasks and activities needed to manage your health condition so as to reduce your need to see a doctor? Select Number: 10 Medication: How confident are you that you can do things other than just taking medication to reduce how much your illness affects your everyday life? Select Number: 10 Total Score:: 9 Nutrition Survey - Nutrition Survey Instructions Scoring Instructions: Scoring is as follows: Yes = 1 points. No = 0 point. Patient score that is >/=12 is considered to be at potential nutritional risk and could benefit from a referral to a registered dietitian. - Nutrition Survey Initial Have you lost >10 lbs over the past 2 months without trying?: No Are you following a special diet at home for diabetes, low fat, or low salt?: No Are you interested in meeting with a dietitian for help understanding your diet?: No - Has already seen nutritional services and max'd out medical benefit through insurance. Do you eat less than 3 meals a day?: Yes Do you eat fatty meats (vicente, sausage, ribs, etc), fried foods, desserts, large amounts of salad dressings, margarine, butter, or cheese most days?: Yes Do you have food allergies? [Enter types in comment field]: No Do you eat in restaurants more than 3 times a week?: Yes Do you season food with salt, seasoning salt, or garlic salt?: No Do you used canned, boxed, frozen meals, or soups, seasoning packets?: Yes Total Score:: 4
[2018-07-27 13:44] VITALS: BP 116/70; PULSE 77; RESP 20; TEMP 37.1; O2SAT 95; BMI 36.8
[2018-07-27 14:31] VITALS: O2SAT 95; BMI 36.8
== END ==
PROVIDERS: Family Provider Student in an Organized Health Care Education/Training Program; PCP Student in an Organized Health Care Education/Training Program; Visit Provider Student in an Organized Health Care Education/Training Program
DX: J45.990 Exercise induced bronchospasm (principal)

== ENCOUNTER → 2018-07-31 11:09 | Outpatient (CLI) | payer OTHER, SELFPAY ==
--- NOTE | 2018-07-31 15:14 | PFTCOMP ---
COMPLETE PULMONARY FUNCTION TEST INTERPRETATION Brief HPI: Patient is a 52 year old female, currently under the care of Dr. Acevedo, who presents to [facility] for complete pulmonary function tests secondary to diagnosis of asthma. Respiratory therapist reports good effort and reproducible results. Interpretation: Forced expiration spirometry shows a mild large airways obstructive ventilatory defect with an FEV1 of 74% predicted. There is no significant bronchodilator response by ATS criteria. Spirograms are of good quality and plateau slowly, indicating slowly emptying areas of the lungs. The respiratory flow volume loop shows decreased expiratory flow rates at high lung volumes consistent with small airways obstruction. Lung volumes by body plethysmography show a normal total lung capacity at 4.91 L, 88% predicted. All other lung volumes are at the lower limit of normal. Diffusion capacity by carbon monoxide is decreased at 66% predicted. The airway resistance is normal. No previous pulmonary function tests were available for review. Impression: Irreversible mild large airways obstructive ventilatory defect. Diffusion capacity is reduced out of proportion to may indicate a pulmonary vascular disease. Consider echocardiogram if not completed previously.
== END ==
PROVIDERS: Family Provider Student in an Organized Health Care Education/Training Program; PCP Student in an Organized Health Care Education/Training Program; Referring Provider Student in an Organized Health Care Education/Training Program; Visit Provider Student in an Organized Health Care Education/Training Program
DX: J45.990 Exercise induced bronchospasm (principal)
CPT/HCPCS: 94060; 94726; 94729

== ENCOUNTER 2018-09-02 10:15 | Outpatient (RCR) | payer OTHER, SELFPAY ==
--- NOTE | 2018-08-27 13:29 | PR.ITP_ITS ---
Exercise - 30-Day Assessment - Exercise Prescription Mode:: NuStep, Arm Ergometer Frequency (x/week): 3 Duration:: 35 Aerobic Exercise [30-60 min 3-7x/week]:: Progressing - Currently not doing treadmill due to foot injury Target heart rate: 116-125 Thomas-12 MET Level:: 2.5 - Session # 10 - Home Exercise Home Exercise:: No Disease Management - 30-Day - Medications Medication list reviewed:: Yes Taking medications 100% of the time:: Approximately 75% of the time - Kalin is doing better at remembering to take medications before exercise session. 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 Attend education classes. Improve Knowledge Test score - Stage of Change Stages of Change:: Action - Learning Barriers Learning Barriers: Participates in education - Family Support Do you have family support?: Yes - Tobacco Use Tobacco Use: Non-smoker Do you use smokeless tobacco?: No - Intervention Smoking Cessation Referral:: No Individual Education/Counseling:: No Education Schedule Given:: Yes - Education Gave Education Materials For:: Pulmonary Disease, Risk Factors, Breathing Techniques, Medical Compliance, Pulmonary A&P, Exacerbation Signs & Symptoms, Stress & Relaxation Nutrition/Wt Mgmt - 30-Day - Weight Management Weight Assessment:: Wt stable Weight:: 234 lb 8 oz Weight Goals Progress:: Not progressing Patient Health Questionnaire 30-Day Re-eval Assessment 1. Little interest or pleasure in doing things: More than half the days 2. Feeling down, depressed, or hopeless: Nearly every day 3. Trouble falling or staying asleep, or sleeping too much: More than half the days 4. Feeling tired or having little energy: More than half the days 5. Poor appetite or overeating: More than half the days 6. Feeling bad about yourself -- or that you are a failure or have let yourself or your family down: Nearly every day 7. Trouble concentrating on things, such as reading the newspaper or watching television: Nearly every day 8. Moving or speaking so slowly that other people could have noticed. Or the opposite - being so fidgety or restless that you have been moving around a lot more than usual: Not at all 9. Thoughts that you would be better off , or of hurting yourself in some way: Not at all How difficult have these problems made it for you to do your work, take care of things at home, or get along with other people?: Somewhat difficult Total Score: 17 Self-Efficacy 30-Day Re-eval Assessment We would like to know how confident you are in doing certain activities. Please select your confidence level for:: Select your confidence level for the following using the scale 1-10 where 1 is not at all confident and 10 is totally confident. Your score is the average of all 6 responses. Fatigue: How confident are you that you can keep the fatigue caused by your disease from interfering with the things you want to do? Select Number: 8 Physical Discomfort or Pain: How confident are you that you can keep the physical discomfort or pain of your disease from interfering with the things you want to do? Select Number: 10 Emotional Distress: How confident are you that you can keep the emotional distress caused by your disease from interfering with the things you want to do? Select Number: 10 Other Symptoms or Health Problems: How confident are you that you can keep other symptoms or health problems from interfering with the things you want to do? Select Number: 9 Different Tasks and Activities: How confident are you that you can do the different tasks and activities needed to manage your health condition so as to reduce your need to see a doctor? Select Number: 10 Medication: How confident are you that you can do things other than just taking medication to reduce how much your illness affects your everyday life? Select Number: 10 Total Score:: 9
--- NOTE | 2018-08-28 11:52 | PR.DATECOV_ITS ---
Dates of Coverage Times for Dates Of Coverage; All dates of coverage are for physician supervision/emergency medical service coordinator for during the times of 08:00 AM through 4:30 PM. Effective Jul 04, 2013 our hours will be changing to 8:00 to 4:30 on Friday, Friday and Friday. First Date of the Month: 09/03/18 Last Date of the Month: 10/02/18
== END 2018-09-02 23:59 ==
LOC: PR 10:15
PROVIDERS: Family Provider Student in an Organized Health Care Education/Training Program; PCP Student in an Organized Health Care Education/Training Program; Visit Provider Student in an Organized Health Care Education/Training Program
DX: J45.990 Exercise induced bronchospasm (principal)
CPT/HCPCS: 94667; 97150; G0239

== ENCOUNTER 2018-09-17 06:20 | Day surgery (SDC) | payer OTHER, SELFPAY ==
--- NOTE | 2018-09-16 23:23 | PCM.HP.BLA ---
History and Physical Date of Admission: 09/17/18 Allergies nabumetone Allergy (Verified 07/23/18 14:48) Hives thimerosal Allergy (Verified 07/23/18 14:48) Other naproxen [From Naprosyn] Adverse Reaction (Verified 07/23/18 14:48) Other oxycodone HCl [From Percocet] Adverse Reaction (Verified 07/23/18 14:48) Other birds Allergy (Uncoded 07/23/18 14:48) Other molds Allergy (Uncoded 07/23/18 14:48) Other seasonal Allergy (Uncoded 07/23/18 14:48) Other Medications Albuterol Aerosols [Ventolin Aerosols] 2.5 mg INHALATION Q6H PRN PRN 09/22/17 [History Confirmed 03/18/18] Albuterol Inhaler [Ventolin Hfa] 2 puff INHALATION Q4H PRN PRN 09/22/17 [History Confirmed 03/18/18] Baclofen [Lioresal] 10 mg PO TID 09/22/17 [History Confirmed 03/18/18] Calcium Carbonate/Vitamin D3 [Calcium 500-Vit D3 200 Tablet] 1 ea PO DAILY 09/22/17 [History Confirmed 03/18/18] Diclofenac Sodium 100 gm TP 4X/DAY 09/22/17 [History Confirmed 03/18/18] Diclofenac [Voltaren] 75 mg PO BIDCM 09/22/17 [History Confirmed 03/18/18] Econazole [Spectazole] 1 applic TOPICAL DAILY 09/22/17 [History Confirmed 03/18/18] Estrogens, Conjugated [Premarin] 0.9 mg PO DAILY 09/22/17 [History Confirmed 03/18/18] Fluoxetine [Prozac] 40 mg PO DAILY 09/22/17 [History Confirmed 03/18/18] Linaclotide [Linzess] 290 mcg PO DAILY 09/22/17 [History Confirmed 03/18/18] Mirabegron [Myrbetriq] 25 mg PO DAILY 09/22/17 [History Confirmed 03/18/18] Mirtazapine [Remeron] 22 mg PO QHS 09/22/17 [History Confirmed 03/18/18] Pregabalin [Lyrica] 100 mg PO TID 09/22/17 [History Confirmed 03/18/18] Pyridoxine HCl [Vitamin B-6] 100 mg PO DAILY 09/22/17 [History Confirmed 03/18/18] buPROPion SR [Wellbutrin SR (150mg tablets)] 150 mg PO BID 09/22/17 [History Confirmed 03/18/18] Fluticasone/Salmeterol [Advair 250/50 Mcg Diskus] 1 puff INHALATION BID 11/26/17 [History Confirmed 03/18/18] Docusate Sodium [Colace] 100 mg PO BID cap 11/29/17 [Rx Confirmed 03/18/18] Lactobacillus Combo No.11 [Probiotic] 1 ea PO DAILY #60 cap.sprink 11/29/17 [Rx Confirmed 03/18/18] Cholecalciferol (Vitamin D3) [Vitamin D3] 1,000 unit PO DAILY 03/18/18 [History Confirmed 03/18/18] Cyanocobalamin [Vitamin B12] 500 mcg PO DAILY@0800 03/18/18 [History Confirmed 03/18/18] guselkumab 100 mg/mL subcutaneous syringe 100 mg SC Q8W 07/23/18 [History Confirmed 07/23/18] metoprolol succinate ER 25 mg capsule sprinkle, ext. release 24 hr mg PO 07/23/18 [History Confirmed 07/23/18] PFSH Medical History Lipoma of back (Chronic) Postoperative seroma of subcutaneous tissue after dermatologic procedure (Acute) Arthritis (Acute) Asthma (Acute) BREAST LUMP OR CYST (Acute) Bloating (Acute) Carpal tunnel syndrome (Acute) Cataract (Acute) Depression (Acute) GASTROINTESTIONAL PROBLEMS (Acute) Hearing problem (Acute) History of migraine headaches (Acute) Hives (Acute) IBS (irritable bowel syndrome) (Acute) LIPOMA UPPER BACK/POSTERIOR NECK (Acute) Leg weakness (Acute) Mass in neck (Acute) OAB (overactive bladder) (Acute) Osteoarthritis (Acute) Pneumonia (Acute) Polycystic ovary (Acute) Psoriasis (Acute) Recurrent infections (Acute) SPINAL STENOSIS - MULTIPLE BACK ISSUES (Acute) Seasonal allergies (Acute) Vision problems (Acute) Surgical History ADENOIDS AND TONSILS 1974 (Acute) CATARACT L & R, TORIC LENS REPLACEMENT 2016 (Acute) COMPLETE HYSTERECTOMY WITH BSO 2015 (Acute) Deviated septum (Acute) EXCISION 8 CM PAINFUL SOFT TISSUE MASS (Acute) H/O bilateral breast reduction surgery (Acute ~2013) RADIOFREQUENCY ABLATION 2017 (Acute) Family History Father Hypertension Mother Arthritis Hypertension Cancer Brother Alcohol abuse Aunt Diabetes Grandfather Alcohol abuse Grandfather Psychiatric care Cancer CVA (cerebral vascular accident) Grandmother Alcohol abuse Grandmother Arthritis Depression Other Family history of basal cell carcinoma Family history of skin cancer Social History Smoking Status: Never smoker alcohol intake: never substance use type: does not use what type of physical activity do you participate in: walking, swimming seatbelt use: always do you feel safe at home: Yes additional social history: SUN EXPOSURE: FREQUENTLY HPI evaluation painful scar contour deformity upper back: HISTORY OF PRESENT ILLNESS 52 year old woman presents with complaints of a painful scar contour deformity in her upper back. She initially had excision of a lipoma in 09/19. She developed an infected hematoma which necessitated further surgery on 11/27/17 where she underwent surgical preparation upper back/posterior neck with incision and drainage and excisional debridement infected hematoma (66 cm2). Culture showed MRSE that was resistant to Tetracycline. She was placed on Levaquin and finished them. The wound was left open and allowed to heal with wound care and antibiotics and increased nutrition. The wound healed on 03/31/18. Today she denies any fever. She denies any trauma. REVIEW OF SYSTEMS General-denies fever and weight loss. Has some fatigue. Ear nose and throat-has chronic sinus problems. Denies nasal congestion. Denies sore throat. Eyes-denies eye pain. Has cataracts. Endocrine-denies excessive thirst or urination. Skin-has painful scar contour deformity upper back from previous infected hematoma after excision of a lipoma. Has a family history of skin cancer. Musculoskeletal-has joint pain, joint stiffness, weakness of muscles and joints, back pain, and arthritis. Neurologic-has headaches. Cardiovascular-denies chest pain. Has some fatigue. Denies shortness of breath with exertion. Psychiatric-denies anxiety. Has depression. Respiratory-has some shortness of breath. His chronic cough. Has obstructive sleep apnea. Has asthma. Has history of pneumonia. Gastrointestinal-denies nausea, vomiting, and diarrhea. Has constipation. Hematologic-denies abnormal bruising. Denies bleeding. Genitourinary-has urinary frequency. Denies hematuria. Has incontinence. PHYSICAL EXAMINATION General-well developed, well nourished, in no acute distress. HEENT-pupils equal round reactive to light. Extraocular muscles intact. Throat is clear. No suspicious lesions noted. Neck-supple, nontender. No cervical adenopathy. Lungs-clear to auscultation. Heart-regular rate and rhythm. Abdomen-soft and nondistended. Extremities-full range of motion. No axillary adenopathy. No suspicious lesions noted. Back-no bony tenderness. There is a scar contour deformity upper back. Some discomfort with palpation. Measures 9 x 7 cm. No evidence of infection. No ulceration. Neuro-cranial nerves II through XII grossly intact. ASSESSMENT 1. Painful infected hematoma scar contour deformity upper back. 2. Late effect infected hematoma upper back. 3. Family history of skin cancer. 4. History of MRSE. PLAN Patient has painful symptomatology from this painful scar contour deformity with her activities of daily living. Discussed with the patient that during the healing process from her infection, sometimes extra scarring occurs over the underlying muscle that can lead to painful symptomatology. Recommend excision of this painful scar contour deformity and send it to Pathology for analysis to rule out carcinoma and to Microbiology for culture. A positive culture will necessitate antibiotic therapy. She was treated in the past with Levaquin for MRSE. Will apply an NPWT device to help with compression of the graft during the initial healing process. Surgery will be done under general anesthesia on an outpatient basis. She is still recovering from left foot surgery. Will tentatively schedule the surgery for September. Patient was informed of the risks and complications of the procedure including alternatives to surgery. These were discussed with the patient personally. Patient voices understanding and wishes to proceed. Some of the risks and complications were included in a form from the [employer].
[2018-09-17 07:25] VITALS: BP 119/62; PULSE 55; RESP 16; TEMP 37.3; O2SAT 97; BMI 38.2
[2018-09-17] MEDS: Vancomycin IV 1,000 MG/200 ML BAG 200 MG IV (07:39)
--- NOTE | 2018-09-17 08:00 | SCAR_PTH ---
PATIENT: GAY SHAFER [place] [facility] [id number] AGE/SX: 52/F ROOM: RE09/17/[address]: Dr. Bonilla Alvarez MD : [id number] BED: DIS: 09/17/2018 SPEC #: [id number] RECD: 09/17/18 12:33 STATUS: CURTIS EDI #: [id number] ISRAEL: 09/17/18 08:[address]: Bonilla Alvarez DEPT: SURGICAL PATHOLOGY RECD BY: Cecilia Layton ENTERED: 09/17/18 15:44 SP TYPE: Scar OTHR DR: Dr. Everton Acevedo, DO Tissues: CICATRIX/SCAR Procedures: Surgery Specimen Level III HEADER OPERATION: Surgical preparation, hematoma scar, upper back, skin grafting PRE-OP DIAGNOSIS: Painful scar deformity of upper back, late effect, infected hematoma of the upper back TISSUE SUBMITTED: Upper back infected hematoma scar tissue MICROSCOPIC DIAGNOSIS Upper back infected hematoma scar tissue: A piece of skin with underlying tissue with focal dense fibrosis and chronic inflammation and foreign body giant cell reaction. APOLINAR:suresh 09/18/18 MICROSCOPIC DESCRIPTION Slides are reviewed. GROSS DESCRIPTION Received in fixative is one container labeled with the patient's name and designated upper back infected hematoma scar tissue. The specimen consists of an irregular fragment of pink-edwards skin with attached yellow fibrofatty tissue. The specimen measures 6 x 5.5 and depth of excision measuring 2 cm. Serial sections do not reveal mass lesions. Transmission Tester sections are submitted in 2 cassettes. AM:suresh 09/17/18 TC: 5 CPT: 25759
[2018-09-17] MEDS: Mupirocin Ointment 22gm Tube 1 APPLIC (09:55)
--- NOTE | 2018-09-17 11:03 | OP.PN_ITS ---
Immediate Post-Op Note Date of Procedure: 09/17/18 Primary Surgeon/Physician: Bonilla Alvarez marketing sales supervisor: Adrienne Canales. Pre-Operative Diagnosis: 1. Painful infected hematoma scar contour deformity upper back. 2. Late effect infected hematoma upper back. 3. Family history of skin cancer. 4. History of MRSE. Post-Operative Diagnosis: Same. Surgery/Procedure Performed:: Surgical preparation upper back with excisional debridement painful infected hematoma scar contour deformity and STSG reconstruction from right superior gluteal area (20 cm2) and placement of BHUMIKA NPWT device. Description of Surgical Findings:: 52 year old woman presents with complaints of a painful scar contour deformity in her upper back. She initially had excision of a lipoma in 09/19. She developed an infected hematoma which necessitated further surgery on 11/27/17 where she underwent surgical preparation upper back/posterior neck with incision and drainage and excisional debridement infected hematoma (66 cm2). Culture showed MRSE that was resistant to Tetracycline. She was placed on Levaquin and finished them. The wound was left open and allowed to heal with wound care and antibiotics and increased nutrition. The wound healed on 03/31/18. Today the patient underwent surgical preparation upper back with excisional debridement painful infected hematoma scar contour deformity and STSG r econstruction from right superior gluteal area (20 cm2) and placement of BHUMIKA NPWT device. Size of skin graft upper back - 4 x 5 cm. I used Zhanna absorbable hemostat. Reference Number - [id number]. Lot Number - [id number]. Expiration - October 30, 2022. Estimated Blood Loss: 25 ml. Specimen's removed: Painful infected hematoma scar contour deformity to Pathology and Microbiology. Drains: Ronn. Type of Anesthesia:: General - Admit VTE Documentation VTE Present on Admission: No VTE Mechan Device Prophylaxis: SCD's VTE Pharm Prophylaxis ordered?: No
[2018-09-17 11:18] VITALS: BP 119/62; BP 138/81; PULSE 82; RESP 15; TEMP 36.2; O2SAT 100
--- NOTE | 2018-09-17 11:19 | DCINST_ITS ---
You will use the following diet at home:: No restrictions Discharge Activity: May not drive while taking narcotic pain medications., May Not Shower - until the drain is remove in the office., - - keep head elevated. no heavy lifting. May shower in (days): 14 - may shower after the drain is removed. May resume sexual activity in: 10-14 days Weight Bearing Status: Weight bearing as tolerated Lifting Restrictions: 20 lbs. Keep extremity elevated above heart level: - - elevate head. Call your doctor if your incision/area has: Continuous Slow Oozing, Sudden Increased Bleeding, Increased Pain/ Swelling, Increased Redness, Foul Smelling Discharge, Swelling at the incision site Call your doctor if you observe: Fever of 101 or Higher, Coldness, Increased Pain, Shortness of breath, Chest pain, Calf discomfort, Uncontrolled pain Suture Line Care: - - after skin graft dressing removed in the office, apply antibiotic ontment to the skin graft daily. Change Dressing in (Days):: 4 - will remove the skin graft dressing in office. Cleanse incision/area with: - - may get incisions and graft wet in the shower after the drain is removed in the office. Drain: Suction - mindy drain to bulb suction. empty and record output daily. Allergies/Adverse Reactions: Allergies nabumetone Allergy (Verified 09/17/18 07:27) Hives thimerosal Allergy (Verified 09/17/18 07:27) Other PER ALLERGY TESTING naproxen [From Naprosyn] Adverse Reaction (Verified 09/17/18 07:27) Other oxycodone HCl [From Percocet] Adverse Reaction (Verified 09/17/18 07:27) Other birds Allergy (Uncoded 09/17/18 07:27) Other molds Allergy (Uncoded 09/17/18 07:27) Other seasonal Allergy (Uncoded 09/17/18 07:27) Other Medications to take at Discharge Albuterol Aerosols [Ventolin Aerosols] 2.5 mg INHALATION Q6H PRN PRN 09/22/17 Albuterol Inhaler [Ventolin Hfa] 2 puff INHALATION Q4H PRN PRN 09/22/17 Baclofen [Lioresal] 10 mg PO TID 09/22/17 Calcium Carbonate/Vitamin D3 [Calcium 500-Vit D3 200 Tablet] 1 ea PO DAILY 09/22/17 Diclofenac Sodium 100 gm TP 4X/DAY 09/22/17 Diclofenac [Voltaren] 75 mg PO BIDCM 09/22/17 Econazole [Spectazole] 1 applic TOPICAL DAILY 09/22/17 Estrogens, Conjugated [Premarin] 0.9 mg PO DAILY 09/22/17 Fluoxetine [Prozac] 40 mg PO DAILY 09/22/17 Linaclotide [Linzess] 290 mcg PO DAILY 09/22/17 Mirabegron [Myrbetriq] 25 mg PO DAILY 09/22/17 Mirtazapine [Remeron] 22 mg PO QHS 09/22/17 Pregabalin [Lyrica] 100 mg PO TID 09/22/17 Pyridoxine HCl [Vitamin B-6] 100 mg PO DAILY 09/22/17 buPROPion SR [Wellbutrin SR (150mg tablets)] 150 mg PO BID 09/22/17 Fluticasone/Salmeterol [Advair 250/50 Mcg Diskus] 1 puff INHALATION BID 11/26/17 Docusate Sodium [Colace] 100 mg PO BID cap 11/29/17 Lactobacillus Combo No.11 [Probiotic] 1 ea PO DAILY #60 cap.sprink 11/29/17 Cholecalciferol (Vitamin D3) [Vitamin D3] 1,000 unit PO DAILY 03/18/18 Cyanocobalamin [Vitamin B12] 500 mcg PO DAILY@0800 03/18/18 guselkumab 100 mg/mL subcutaneous syringe 100 mg SC Q8W 07/23/18 Fluticasone Furoate [Arnuity Ellipta] 50 mcg IH PRN PRN 09/10/18 Topiramate [Topamax] 25 mg PO BID 09/10/18 Hydrocodone/Acetaminophen [Hydrocodone-Acetamin 5-325 mg] 1 ea PO 4X/DAY PRN PRN 5 Days #40 tab 09/17/18 levoFLOXacin tablet [Levaquin tablet] 500 mg PO DAILY #14 tab 09/17/18 The following prescriptions were given: Hydrocodone/Acetaminophen [Hydrocodone-Acetamin 5-325 mg] 1 ea PO 4X/DAY PRN PRN 5 Days #40 tab PRN Reason: Pain levoFLOXacin tablet [Levaquin tablet] 500 mg PO DAILY #14 tab Primary Care Physician: Acevedo,Everton, DO [Primary Care Provider] - Test Results: Test results from this visit will be discussed in further detail at your follow- up appointment, if applicable. Please Follow Up With: Bonilla Alvarez MD When: friday09/21/18. call [phone] for appt. Proposed Discharge Date: 09/17/18
[2018-09-17 11:30] VITALS: BP 113/71; BP 119/62; PULSE 69; RESP 16; O2SAT 99
[2018-09-17 11:45] VITALS: BP 119/62; BP 125/73; PULSE 63; RESP 16; O2SAT 98
[2018-09-17 12:06] VITALS: BP 119/62; BP 119/66; PULSE 70; RESP 16; TEMP 36.3; O2SAT 94
[2018-09-17 13:30] VITALS: BP 119/62; BP 126/72; PULSE 78; RESP 16; TEMP 36.7; O2SAT 98
--- NOTE | 2018-09-17 18:13 | PCM.OPRPT ---
Report of Operation Date of Procedure: 09/17/18 Pre-Operative Diagnosis: 1. Painful infected hematoma scar contour deformity upper back. 2. Late effect infected hematoma upper back. 3. Family history of skin cancer. 4. History of MRSE. Post-Operative Diagnosis: Same. Surgery/Procedure Performed:: Surgical preparation upper back with excisional debridement painful infected hematoma scar contour deformity and STSG reconstruction from right superior gluteal area (20 cm2) and placement of BHUMIKA NPWT device. Description of Surgical Findings:: 52 year old woman presents with complaints of a painful scar contour deformity in her upper back. She initially had excision of a lipoma in 09/19. She developed an infected hematoma which necessitated further surgery on 11/27/17 where she underwent surgical preparation upper back/posterior neck with incision and drainage and excisional debridement infected hematoma (66 cm2). Culture showed MRSE that was resistant to Tetracycline. She was placed on Levaquin and finished them. The wound was left open and allowed to heal with wound care and antibiotics and increased nutrition. The wound healed on 03/31/18. Patient was informed of the risks and complications of the procedure including alternatives to surgery. These were discussed with the patient personally. Patient voices understanding and wishes to proceed. Some of the risks and complications were included in a form from the [employer]. Size of skin graft upper back - 4 x 5 cm. I used Zhanna absorbable hemostat. Reference Number - [id number]. Lot Number - [id number]. Expiration - October 30, 2022. cold type composing machine operator: Adrienne Canales. Type of Anesthesia:: General Specimen's removed: Painful infected hematoma scar contour deformity to Pathology and Microbiology. Drains: Ronn. Estimated Blood Loss (mL): 25 ml. Description of Procedure: Patient was taken to OR in supine position and was placed under general anesthesia. She was then placed in the prone position. The upper back and gluteal areas prepped and draped in the usual fashion. SCD's were placed for DVT prophylaxis. Perioperative antibiotics were given intravenously. Using xylocaine with epinephrine, the upper back scar contour deformity was infiltrated. After waiting 5 minutes for the anesthetic to take effect, the painful infected hematoma scar contour deformity upper back was excised down to the muscular fascia. There was a lot of dense scar tissue adherent to the underlying muscle. Some of the tissue was sent to Pathology for analysis to rule out carcinoma. Some of the tissue was sent to Microbiology for culture. A positive culture will necessitate antibiotic therapy. I then cinched down the skin edges to the underlying muscle to minimize having to place skin graft on the subcutaneous sides of the wound. I used 2-0 Vicryl interrupted sutures. The size of the defect for the skin graft was 4 x 5 cm. I then infiltrated the right superior gluteal area where the skin graft will be harvested. I then made a horizontal elliptical excision into the subcutaneous tissue. I removed the subcutaneous tissue and some of the deeper dermis thus fashioning a thick split thickness skin graft. Using a 15 blade and placing the skin graft on stretch, I meshed the skin graft. The skin graft was placed in saline. I further excised some of the subcutaneous tissue in the wound to aid in wound closure. Hemostasis was obtained with electrocautery. I sprayed Zhanna absorbable hemostat into the wound to minimize seroma formation. I placed a size 15 Ronn drain through a separate stab incision laterally and secured to the skin with 3-0 Nylon suture. I then closed the donor wound in the right superior gluteal area with 2-0 Vicryl figure of eight interrupted sutures for the underlying Rhianna's fascia. The deep dermis and subcutaneous tissue was approximated with 3-0 Monocryl interrupted sutures. The skin was approximated with 3-0 V lock unidirectional barbed running subcuticular suture. Antibiotic ointment was applied to the incision followed by a Kerlix gauze dressing. I then placed the thick split thickness skin graft onto the upper back wound and secured the skin graft to the skin edges with 3-0 Chromic interrupted sutures. I also used 3-0 Chromic interrupted sutures for central quilting stabilization. The size of the skin graft was 4 x 5 cm or 20 cm2. I placed Mepitel nonadherent dressing onto the skin graft followed by antibiotic ointment. I placed a BHUMIKA NPWT device onto the skin graft for compression. Good suction was noted on the NPWT device. Patient tolerated the procedure well and was sent to PACU in satisfactory condition. Patient will be sent home on antibiotics and pain medication. Patient will followup in a week for a wound check and for discussion of the pathology report and for takedown of the BHUMIKA NPWT device in order to evaluate the healing of the skin graft. The drain will be removed in 2 weeks since she has a history of seroma formation. Grafts/Implants Used: None. - Complications None. - Admit VTE Documentation VTE Present on Admission: No VTE Mechan Device Prophylaxis: SCD's VTE Pharm Prophylaxis ordered?: No Code Visit Surgery Charges CPT - 24998 ICD-10 - S20.229S, T75.89xS, Z80.8 85088 S20.229S, T75.89xS, Z80.8
--- NOTE | 2018-09-19 00:13 | OP.PCM_ITS ---
Report of Operation Date of Procedure: 09/17/18 Pre-Operative Diagnosis: 1. Painful infected hematoma scar contour deformity upper back. 2. Late effect infected hematoma upper back. 3. Family history of skin cancer. 4. History of MRSE. Post-Operative Diagnosis: Same. Surgery/Procedure Performed:: Surgical preparation upper back with excisional debridement painful infected hematoma scar contour deformity and STSG reconstruction from right superior gluteal area (20 cm2) and placement of BHUMIKA NPWT device. Description of Surgical Findings:: 52 year old woman presents with complaints of a painful scar contour deformity in her upper back. She initially had excision of a lipoma in 09/19. She developed an infected hematoma which necessitated further surgery on 11/27/17 where she underwent surgical preparation upper back/posterior neck with incision and drainage and excisional debridement infected hematoma (66 cm2). Culture showed MRSE that was resistant to Tetracycline. She was placed on Levaquin and finished them. The wound was left open and allowed to heal with wound care and antibiotics and increased nutrition. The wound healed on 03/31/18. Patient was informed of the risks and complications of the procedure including alternatives to surgery. These were discussed with the patient personally. Patient voices understanding and wishes to proceed. Some of the risks and complications were included in a form from the [employer]. Size of skin graft upper back - 4 x 5 cm. I used Zhanna absorbable hemostat. Reference Number - [id number]. Lot Number - [id number]. Expiration - October 30, 2022. television news anchor: Adrienne Canales. Type of Anesthesia:: General Specimen's removed: Painful infected hematoma scar contour deformity to Pathology and Microbiology. Drains: Ronn. Estimated Blood Loss (mL): 25 ml. Description of Procedure: Patient was taken to OR in supine position and was placed under general anesthesia. She was then placed in the prone position. The upper back and gluteal areas prepped and draped in the usual fashion. SCD's were placed for DVT prophylaxis. Perioperative antibiotics were given intravenously. Using xylocaine with epinephrine, the upper back scar contour deformity was infil trated. After waiting 5 minutes for the anesthetic to take effect, the painful infected hematoma scar contour deformity upper back was excised down to the muscular fascia. There was a lot of dense scar tissue adherent to the underlying muscle. Some of the tissue was sent to Pathology for analysis to rule out carcinoma. Some of the tissue was sent to Microbiology for culture. A positive culture will necessitate antibiotic therapy. I then cinched down the skin edges to the underlying muscle to minimize having to place skin graft on the subcutaneous sides of the wound. I used 2-0 Vicryl interrupted sutures. The size of the defect for the skin graft was 4 x 5 cm. I then infiltrated the right superior gluteal area where the skin graft will be harvested. I then made a horizontal elliptical excision into the subcutaneous tissue. I removed the subcutaneous tissue and some of the deeper dermis thus fashioning a thick split thickness skin graft. Using a 15 blade and placing the skin graft on stretch, I meshed the skin graft. The skin graft was placed in saline. I further excised some of the subcutaneous tissue in the wound to aid in wound closure. Hemostasis was obtained with electrocautery. I sprayed Zhanna absorbable hemostat into the wound to minimize seroma formation. I placed a size 15 Ronn drain through a separate stab incision laterally and secured to the skin with 3-0 Nylon suture. I then closed the donor wound in the right superior gluteal area with 2-0 Vicryl figure of eight interrupted sutures for the underlying Rhianna's fascia. The deep dermis and subcutaneous tissue was approximated with 3-0 Monocryl interrupted sutures. The skin was approximated with 3-0 V lock unidirectional barbed running subcuticular suture. Antibiotic ointment was applied to the incision followed by a Kerlix gauze dressing. I then placed the thick split thickness skin graft onto the upper back wound and secured the skin graft to the skin edges with 3-0 Chromic interrupted sutures. I also used 3-0 Chromic interrupted sutures for central quilting stabilization. The size of the skin graft was 4 x 5 cm or 20 cm2. I placed Mepitel nonadherent dressing onto the skin graft followed by antibiotic ointment. I placed a BHUMIKA NPWT device onto the skin graft for compression. Good suction was noted on the NPWT device. Patient tolerated the procedure well and was sent to PACU in satisfactory condition. Patient will be sent home on antibiotics and pain medication. Patient will followup in a week for a wound check and for discussion of the pathology report and for takedown of the BHUMIKA NPWT device in order to evaluate the healing of the skin graft. The drain will be removed in 2 weeks since she has a history of seroma formation. Grafts/Implants Used: None. - Complications None. - Admit VTE Documentation VTE Present on Admission: No VTE Mechan Device Prophylaxis: SCD's VTE Pharm Prophylaxis ordered?: No Code Visit Surgery Charges CPT - 58819 ICD-10 - S20.229S, T75.89xS, Z80.8 44646 S20.229S, T75.89xS, Z80.8
== END 2018-09-17 13:40 | disposition home or self-care (01) ==
LOC: SDC 06:20 → AC 06:21
PROVIDERS: Family Provider Student in an Organized Health Care Education/Training Program; PCP Student in an Organized Health Care Education/Training Program; Referring Provider Surgery; Visit Provider Surgery
PROC: (CPT 11043; principal; 2018-09-17 07:45)
DX: S20.22 Contusion of back wall of thorax (principal); L90.5 Scar conditions and fibrosis of skin; F32.9 Major depressive disorder, single episode, unspecified; M19.90 Unspecified osteoarthritis, unspecified site; L40.9 Psoriasis, unspecified; E28.2 Polycystic ovarian syndrome; J45.909 Unspecified asthma, uncomplicated; N32.81 Overactive bladder; K21.9 Gastro-esophageal reflux disease without esophagitis; Z88.5 Allergy status to narcotic agent; Z79.899 Other long term (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 therapy; Z80.8 Family history of malignant neoplasm of other organs or systems
CPT/HCPCS: 00400; 11043; 15002; 15100; 87070; 87075; 87102; 87205; 87206; 88304; J7120; J2405

== ENCOUNTER → 2018-09-29 14:14 | Outpatient (CLI) | payer OTHER, SELFPAY ==
[2018-09-29 13:55] VITALS: BMI 38.2
--- NOTE | 2018-09-29 14:16 | RAD_ITS ---
STUDY: X-RAY - LUMBAR SPINE REASON FOR EXAM: Female, 52 years old. Neck pain TECHNIQUE: 4 weightbearing view(s) of the lumbar spine were obtained. With flexion and extension COMPARISON: None FINDINGS: Normal lumbar lordosis. There is no substantial scoliosis. There is a normal alignment of the vertebrae. There is no abnormal motion. Normal vertebral bodies and endplates. Mild disc space narrowing L5-S1. Facet sclerosis and arthropathy involving the L3-L4, L4-5, L5-S1 level. The soft tissue structures are unremarkable. RAD/L/S Spine Min 4 Views IMPRESSION: Facet arthropathy. No abnormal motion. Electronically Signed: Juana Mas MD at 4:12 EST , Service support ,
--- OUTSIDE RECORDS SUMMARY | 2018-11-25 05:09 | XMS RPT_ITS ---
:1965 Author Organization OHIP Support Name Relationship Address Phone VIRGINIA INOCENTE Unavailable [address] + [place] [address] UE Unavailable Unavailable Unavailable DAIBER, INOCENTE Unavailable [address] + [place] [address] UE Unavailable Unavailable Unavailable DAIBER, INOCENTE Unavailable [address] + [place] [address] UE Unavailable Unavailable Unavailable DAIBER, INOCENTE Unavailable [address] + [place] [address] UE Unavailable Unavailable Unavailable DAIBER, INOCENTE Unavailable [address] + [place] [address] UE Unavailable Unavailable Unavailable DAIBER, INOCENTE Unavailable [address] + [place] [address] UE Unavailable Unavailable Unavailable DAIBER, INOCENTE Unavailable [address] + [place] [address] UE Unavailable Unavailable Unavailable DAIBER, INOCENTE Unavailable [address] + [place] [address] UE Unavailable Unavailable Unavailable DAIBER, INOCENTE Unavailable [address] + [place] [address] UE Unavailable Unavailable Unavailable DAIBER, INOCENTE Unavailable [address] + [place] [address] UE Unavailable Unavailable Unavailable DAIBER, INOCENTE Unavailable [address] + [place] [address] UE Unavailable Unavailable Unavailable DAIBER, INOCENTE Unavailable [address] + [place] [address] UE Unavailable Unavailable Unavailable DAIBER, INOCENTE Unavailable [address] + [place] [address] UE Unavailable Unavailable Unavailable DAIBER, INOCENTE Unavailable [address] + [place] [address] UE Unavailable Unavailable Unavailable DAIBER, INOCENTE Unavailable [address] + [place] [address] UE Unavailable Unavailable Unavailable DAIBER, INOCENTE Unavailable [address] + [place] [address] UE Unavailable Unavailable Unavailable DAIBER, INOCENTE Unavailable [address] + [place] [address] UE Unavailable Unavailable Unavailable DAIBER, INOCENTE Unavailable [address] + [place] [address] UE Unavailable Unavailable Unavailable DAIBER, INOCENTE Unavailable [address] + [place] [address] DAIBER, INOCENTE Unavailable [address] + [place] [address] UE Unavailable Unavailable Unavailable DAIBER, INOCENTE Unavailable [address] + [place] [address] DAIBER, INOCENTE Unavailable [address] + [place] [address] UE Unavailable Unavailable Unavailable DAIBER, INOCENTE Unavailable [address] + [place] [address] UE Unavailable Unavailable Unavailable DAIBER, INOCENTE Unavailable [address] + [place] [address] UE Unavailable Unavailable Unavailable DAIBER, INOCENTE Unavailable [address] + [place] [address] UE Unavailable Unavailable Unavailable DAIBER, INOCENTE Unavailable [address] + [place] [address] UE Unavailable Unavailable Unavailable DAIBER, INOCENTE Unavailable [address] + [place] [address] UE Unavailable Unavailable Unavailable DAIBER, INOCENTE Unavailable [address] + [place] [address] UE Unavailable Unavailable Unavailable DAIBER, INOCENTE Unavailable [address] + [place] [address] UE Unavailable Unavailable Unavailable DAIBER, INOCENTE Unavailable [address] + [place] [address] UE Unavailable Unavailable Unavailable DAIBER, INOCENTE Unavailable [address] + [place] [address] UE Unavailable Unavailable Unavailable DAIBER, INOCENTE Unavailable [address] + [place] [address] UE Unavailable Unavailable Unavailable DAIBER, INOCENTE Unavailable [address] + [place] [address] UE Unavailable Unavailable Unavailable DAIBER, INOCENTE Unavailable [address] + [place] [address] UE Unavailable Unavailable Unavailable DAIBER, INOCENTE Unavailable [address] + [place] [address] UE Unavailable Unavailable Unavailable DAIBER, INOCENTE Unavailable [address] + [place] [address] UE Unavailable Unavailable Unavailable DAIBER, INOCENTE Unavailable [address] + [place] [address] UE Unavailable Unavailable Unavailable DAIBER, INOCENTE Unavailable [address] + [place] [address] UE Unavailable Unavailable Unavailable DAIBER, INOCENTE Unavailable [address] + [place] [address] UE Unavailable Unavailable Unavailable DAIBER, INOCENTE Unavailable [address] + [place] [address] UE Unavailable Unavailable Unavailable DAIBER, INOCENTE Unavailable [address] + [place] [address] UE Unavailable Unavailable Unavailable DAIBER, INOCENTE Unavailable [address] + [place] [address] UE Unavailable Unavailable Unavailable DAIBER, INOCENTE Unavailable [address] + [place] [address] UE Unavailable Unavailable Unavailable DAIBER, INOCENTE Unavailable [address] + [place] [address] UE Unavailable Unavailable Unavailable DAIBER, INOCENTE Unavailable [address] + [place] [address] UE Unavailable Unavailable Unavailable DAIBER, INOCENTE Unavailable [address] + [place] [address] UE Unavailable Unavailable Unavailable DAIBER, INOCENTE Unavailable [address] + [place] [address] UE Unavailable Unavailable Unavailable DAIBER, INOCENTE Unavailable [address] + [place] [address] UE Unavailable Unavailable Unavailable DAIBER, INOCENTE Unavailable [address] + [place] [address] UE Unavailable Unavailable Unavailable DAIBER, INOCENTE Unavailable [address] + [place] [address] UE Unavailable Unavailable Unavailable DAIBER, INOCENTE Unavailable [address] + [place] [address] UE Unavailable Unavailable Unavailable DAIBER, INOCENTE Unavailable [address] + [place] [address] UE Unavailable Unavailable Unavailable DAIBER, INOCENTE Unavailable [address] + [place] [address] UE Unavailable Unavailable Unavailable DAIBER, INOCENTE Unavailable [address] + [place] [address] UE Unavailable Unavailable Unavailable DAIBER, INOCENTE Unavailable [address] + [place] [address] UE Unavailable Unavailable Unavailable DAIBER, INOCENTE Unavailable [address] + [place] [address] UE Unavailable Unavailable Unavailable Care Team Providers Name Role Phone EHSAN BENAVIDES Attending Unavailable EHSAN BENAVIDES Referring Unavailable EHSAN BENAVIDES Attending Unavailable EHSAN BENAVIDES Referring Unavailable EHSAN BENAVIDES Attending Unavailable EHSAN BENAVIDES Referring Unavailable EHSAN BENAVIDES Attending Unavailable EHSAN BENAVIDES Referring Unavailable EVERTON ACEVEDO Attending Unavailable EVERTON ACEVEDO Referring Unavailable EHSAN BENAVIDES Attending Unavailable JHONATAN BOWLINGEHSAN Referring Unavailable CORNIELLO, KAY L ([facility]) Referring Unavailable ACEVEDO, EVERTON L Attending Unavailable ACEVEDO, EVERTON L Referring Unavailable JHONATAN BOWLINGEHSAN Attending Unavailable JHONATAN BOWLINGEHSAN M Referring Unavailable JHONATAN BOWLING, EHSAN Laird Attending Unavailable JHONATAN BOWLING, EHSAN Laird Referring Unavailable CORNIELLO, KAY L ([facility]) Attending Unavailable CORNIELLO, KAY L ([facility]) Referring Unavailable JHONATAN BOWLING, EHSAN M Attending Unavailable JHONATAN BOWLING, EHSAN Laird Referring Unavailable JHONATAN BOWLING, EHSAN Laird Attending Unavailable JHONATAN BOWLING, EHSAN Laird Referring Unavailable CORNIELLO, KAY L ([facility]) Referring Unavailable JHONATAN BOWLING, EHSAN Laird Attending Unavailable JHONATAN BOWLING, EHSAN Laird Referring Unavailable CORNIELLO, KAY L ([facility]) Attending Unavailable CORNIELLO, KAY L ([facility]) Referring Unavailable JHONATAN BOWLING, EHSAN Laird Attending Unavailable ACEVEDO, EVERTON L Referring Unavailable JHONATAN BOWLING, EHSAN Laird Attending Unavailable ACEVEDO, EVERTON L Referring Unavailable JHONATAN BOWLING, EHSAN Laird Attending Unavailable JHONATAN BOWLING, EHSAN Laird Attending Unavailable MARY KUMAR (PT) Attending Unavailable CANELO HILL Referring Unavailable JHONATAN BOWLINGEHSAN Attending Unavailable ACEVEDO, EVERTON L Referring Unavailable MARY KUMAR (PT) Attending Unavailable CANELO HILL Referring Unavailable JHONATAN BOWLINGEHSAN Attending Unavailable ACEVEDO, EVERTON L Referring Unavailable MARY KUMAR (PT) Attending Unavailable CANELO HILL Referring Unavailable JHONATAN BOWEHSAN PAULINO Attending Unavailable ACEVEDO, EVERTON L Referring Unavailable OLBRYCH, CYNTHIA Attending Unavailable ACEVEDO, EVERTON L Referring Unavailable ACEVEDO, EVERTON L Referring Unavailable OLBRYCH, CYNTHIA Referring Unavailable HILL, CANELO Referring Unavailable HILL, CANELO Referring Unavailable MARY KUMAR (PT) Attending Unavailable HILL, CANELO Referring Unavailable MARY KUMAR (PT) Attending Unavailable LIZ, CANELO Referring Unavailable JHONATAN BOWLINGEHSAN Attending Unavailable ACEVEDO, EVERTON L Referring Unavailable MARY KUMAR (PT) Attending Unavailable CANELO HILL Referring Unavailable CANELO HILL Attending Unavailable ACEVEDO, EVERTON L Referring Unavailable JHONATAN BOWLINGEHSAN Attending Unavailable ACEVEDO, EVERTON L Referring Unavailable JHONATAN BOWLINGEHSAN Attending Unavailable ACEVEDO, EVERTON L Attending Unavailable CORNIELLO, KAY L ([facility]) Referring Unavailable JHONATAN BOWLING, EHSAN Laird Attending Unavailable JHONATAN BOWLING, EHSAN Laird Attending Unavailable JHONATAN BOWLING, EHSAN Laird Attending Unavailable ACEVEDO, EVERTON L Referring Unavailable JHONATAN BOWLING, EHSAN M Attending Unavailable ACEVEDO, EVERTON L Attending Unavailable CORNIELLO, KAY L ([facility]) Referring Unavailable JHONATAN BOWLING, EHSAN M Attending Unavailable JHONATAN BOWLING, EHSAN Laird Attending Unavailable ACEVEDO, EVERTON L Referring Unavailable JHONATAN BOWLING, EHSAN Laird Attending Unavailable ACEVEDO, EVERTON L Referring Unavailable ACEVEDO, EVERTON L Referring Unavailable ACEVEDO, EVERTON L Attending Unavailable CORNIELLO, KAY L ([facility]) Referring Unavailable CORNIELLO, KAY L ([facility]) Attending Unavailable CORNIELLO, KAY L ([facility]) Referring Unavailable CORNIELLO, KAY L ([facility]) Referring Unavailable CORNIELLO, KAY L ([facility]) Attending Unavailable JHONATAN BOWLING, EHSAN Laird Attending Unavailable JHONATAN BOWLING, EHSAN Laird Referring Unavailable JHONATAN BOWLING, EHSAN Laird Attending Unavailable JHONATAN BOWLING, EHSAN Laird Referring Unavailable ACEVEDO, KASSIDY (PT) Attending Unavailable ACEVEDO, EVERTON L Referring Unavailable CORNIELLO, KAY L ([facility]) Attending Unavailable JHONATAN BOWLING, EHSAN Laird Attending Unavailable JHONATAN BOWLING, EHSAN Laird Referring Unavailable ACEVEDO, KASSIDY (PT) Attending Unavailable ACEVEDO, EVERTON L Referring Unavailable JHONATAN BOWLING, EHSAN Laird Attending Unavailable JHONATAN BOWLING, EHSAN Laird Referring Unavailable JHONATAN BOWLING, EHSAN Laird Attending Unavailable JHONATAN BOWLING, EHSAN Laird Referring Unavailable CORNIELLO, KAY L ([facility]) Attending Unavailable ACEVEDO, EVERTON L Referring Unavailable ACEVEDO, KASSIDY (PT) Attending Unavailable ACEVEDO, EVERTON L Referring Unavailable GENIE CARVAJAL Attending Unavailable CORNIELLO, KAY L ([facility]) Referring Unavailable JHONATAN BOWLING, EHSAN M Attending Unavailable JHONATAN BOWLING, EHSAN M Referring Unavailable ACEVEDO, KASSIDY (PT) Attending Unavailable ACEVEDO, EVERTON L Referring Unavailable ACEVEDO, KASSIDY (PT) Attending Unavailable ACEVEDO, EVERTON L Referring Unavailable JHONATAN BOWLING, EHSAN Laird Attending Unavailable JHONATAN BOWLING, EHSAN M Referring Unavailable ACEVEDO, EVERTON L Attending Unavailable ACEVEDO, EVERTON L Referring Unavailable JHONATAN ZENA, EHSAN M Attending Unavailable JHONATAN BOWLING, EHSAN M Referring Unavailable JHONATAN BOWLING, EHSAN M Attending Unavailable JHONATAN BOWLING, EHSAN M Referring Unavailable SUPPAN, JASPREET Attending Unavailable ACEVEDO DO, EVERTON Primary Care Unavailable SUPPAN, JASPREET Attending Unavailable ACEVEDO DO, EVERTON Primary Care Unavailable Kim Monk Attending Unavailable Acevedo, Everton Referring Unavailable SlabyBonilla Attending Unavailable Acevedo, Everton Referring Unavailable Acevedo, Everton Primary Care Unavailable Slaby, Bonilla Attending Unavailable Acevedo, Everton Primary Care Unavailable Slaby, Bonilla Attending Unavailable Acevedo, Everton Primary Care Unavailable Slaby, Bonilla Attending Unavailable Acevedo, Everton Referring Unavailable Acevedo, Everton Primary Care Unavailable Slaby, Bonilla Attending Unavailable Acevedo, Everton Referring Unavailable Acevedo, Everton Primary Care Unavailable Slabtasha, Bonilla Attending Unavailable Slaby, Bonilla Referring Unavailable Acevedo, Everton Primary Care Unavailable Slaby, Bonilla Attending Unavailable Acevedo, Everton Referring Unavailable Acevedo, Everton Primary Care Unavailable Slaby, Bonilla Attending Unavailable Acevedo, Everton Referring Unavailable Acevedo, Everton Primary Care Unavailable Slaby, Bonilla Attending Unavailable Acevedo, Everton Primary Care Unavailable Slaby, Bonilla Referring Unavailable Slaby, Bonilla Attending Unavailable Acevedo, Everton Primary Care Unavailable Slaby, Bonilla Attending Unavailable Slaby, Bonilla Referring Unavailable Acevedo, Everton Primary Care Unavailable SlabBonilla cordova Consulting Unavailable Slaby, Bonilla Attending Unavailable SlabyBonilla Referring Unavailable Acevedo, Everton Primary Care Unavailable Slaby, Bonilla Consulting Unavailable Slaby, Bonilla Attending Unavailable SlabyBonilla Referring Unavailable Acevedo, Everton Primary Care Unavailable Slaby, Bonilla Consulting Unavailable Slaby, Bonilla Attending Unavailable Acevedo, Everton Referring Unavailable Acevedo, Everton Primary Care Unavailable Acevedo, Everton Attending Unavailable Acevedo, Everton Referring Unavailable Acevedo, Everton Primary Care Unavailable Slaby, Bonilla Attending Unavailable Acevedo, Everton Primary Care Unavailable Slaby, Bonilla Attending Unavailable SlabyBonilla Referring Unavailable Corniello, Kay FOOD CHEMIST-C Attending Unavailable Corniello, Kay FOOD CHEMIST-C Referring Unavailable Acevedo, Everton Primary Care Unavailable Acevedo, Everton Attending Unavailable Acevedo, Everton Referring Unavailable Acevedo, Everton Primary Care Unavailable Slaby, Bonilla Attending Unavailable Acevedo, Everton Primary Care Unavailable Slaby, Bonilla Attending Unavailable Acevedo, Everton Primary Care Unavailable Slaby, Bonilla Consulting Unavailable Slaby, Bonilla Attending Unavailable Acevedo, Everton Primary Care Unavailable Slaby, Bonilla Consulting Unavailable Slaby, Bonilla Attending Unavailable Acevedo, Everton Primary Care Unavailable Slaby, Bonilla Consulting Unavailable Slaby, Bonilla Attending Unavailable Acevedo, Everton Primary Care Unavailable Slaby, Bonilla Consulting Unavailable Jefferson Barrera Attending Unavailable Kay Villalobos FOOD CHEMIST-C Referring Unavailable Slaby, Bonilla Attending Unavailable Slaby, Bonilla Referring Unavailable Acevedo, Everton Primary Care Unavailable Acevedo, Everton Attending Unavailable Acevedo, Everton Referring Unavailable Acevedo, Everton Primary Care Unavailable Slaby, Bonilla Attending Unavailable Acevedo, Everton Primary Care Unavailable Yomi Malone Attending Unavailable FaisalYomi Referring Unavailable Acevedo, Everton Primary Care Unavailable Acevedo, Everton Attending Unavailable Acevedo, Everton Referring Unavailable Acevedo, Everton Primary Care Unavailable Slaby, Bonilla Attending Unavailable Acevedo, Everton Primary Care Unavailable Acevedo, Everton Attending Unavailable Acevedo, Everton Primary Care Unavailable Acevedo, Everton Attending Unavailable Acevedo, Everton Referring Unavailable Acevedo, Everton Primary Care Unavailable Slaby, Bonilla Attending Unavailable Acevedo, Everton Primary Care Unavailable Slaby, Bonilla Consulting Unavailable Acevedo, Everton Attending Unavailable Acevedo, Everton Referring Unavailable Acevedo, Everton Primary Care Unavailable Slaby, Bonilla Attending Unavailable Acevedo, Everton Primary Care Unavailable Slaby, Bonilla Consulting Unavailable Slaby, Bonilla Attending Unavailable Acevedo, Everton Primary Care Unavailable Slaby, Bonilla Consulting Unavailable Slaby, Bonilla Attending Unavailable Acevedo, Everton Referring Unavailable Acevedo, Everton Primary Care Unavailable Acevedo, Everton Attending Unavailable Acevedo, Everton Referring Unavailable Acevedo, Everton Primary Care Unavailable Acevedo, Everton Attending Unavailable Acevedo, Everton Referring Unavailable Acevedo, Everton Primary Care Unavailable Acevedo, Everton Attending Unavailable Acevedo, Everton Referring Unavailable Acevedo, Everton Primary Care Unavailable Acevedo, Everton Attending Unavailable Acevedo, Everton Referring Unavailable Acevedo, Everton Primary Care Unavailable Marcellus Wheeler Attending Unavailable Acevedo, Everton Referring Unavailable Acevedo, Everton Attending Unavailable Acevedo, Everton Referring Unavailable Acevedo, Everton Primary Care Unavailable Slaby, Bonilla Attending Unavailable Slaby, Bonilla Referring Unavailable Acevedo, Everton Primary Care Unavailable Bonilla Alvarez Attending Unavailable Slaby, Bonilla Referring Unavailable Acevedo, Everton Primary Care Unavailable Antonio, Bonilla Consulting Unavailable Antonio, Bonilla Attending Unavailable Acevedo, Everton Referring Unavailable Slaby, Bonilla Attending Unavailable Slaby, Bonilla Referring Unavailable Acevedo, Everton Primary Care Unavailable Antonio, Bonilla Consulting Unavailable Kim Monk Attending Unavailable Acevedo, Everton Referring Unavailable Mary Bullard Attending Unavailable Acevedo, Everton Referring Unavailable BlulardRomeliaMary Attending Unavailable Bullard, Mary Referring Unavailable Acevedo, Everton Primary Care Unavailable Acevedo, Everton Attending Unavailable Acevedo, Everton Referring Unavailable Acevedo, Everton Primary Care Unavailable Slaby, Bonilla Attending Unavailable Acevedo, Everton Referring Unavailable Acevedo, Everton Primary Care Unavailable PROBLEMS PROBLEMS DATE TYPE CONDITION / CODE ATTENDING STATUS SOURCE 10/20/2018 Active Severe persistent NA Active [facility] asthma, uncomplicated [facility] Main / J45.50(ICD-10) [facility] Repository 10/20/2018 Active 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 / [facility] Main J30.89(ICD-10) [facility] Repository 10/19/2018 Unknown J45.990 - Exercise Acevedo, Active [facility] induced bronchospasm / [facility] J45.990(ICD-10) Hospital Repository 09/29/2018 Unknown M54.5 - Low back pain Mary Bullard Active [place] / M54.5(ICD-10) [facility] Hospital Repository 09/24/2018 Unknown G89.18 - Other acute Bonilla Alvarez Active [facility] postprocedural pain / [facility] G89.18(ICD-10) Hospital Repository 07/27/2018 Unknown J45.901 - Unspecified Acevedo, Active [facility] asthma with (acute) [facility] exacerbation / Hospital J45.901(ICD-10) Repository 07/08/2018 Active Other intervertebral NA Active [facility] disc displacement, [facility] Main lumbosacral region / [place] M51.27(ICD-10) Repository 07/08/2018 Active Other symptoms and NA Active [facility] signs involving the [facility] Main musculoskeletal system [place] / R29.898(ICD-10) Repository 07/23/2018 Active Lumbago with sciatica, NA Active [facility] right side / [facility] M54.41(ICD-10) [facility] Repository 07/23/2018 Active Lumbago with sciatica, NA Active [facility] left side / [facility] M54.42(ICD-10) [facility] Repository 07/23/2018 Active Other chronic pain / NA Active [facility] G89.29(ICD-10) Clinic Main [facility] Rep[facility] 07/23/2018 Active Spinal stenosis, NA Active [facility] lumbar region without Clinic Main neurogenic [facility] claudication / Repository M48.061(ICD-10) 07/23/2018 Active Other abnormalities of NA Active [facility] gait and mobility / Clinic Main R26.89(ICD-10) [facility] Repository 08/03/2018 Unknown E66.01 - Morbid Acevedo, Active [place] (severe) obesity due [facility] to excess calories / Hospital E66.01(ICD-10) Repository 05/29/2018 Active Pain in right knee / NA Active [facility] M25.561(ICD-10) Clinic Main [facility] Repository 05/29/2018 Active Other bursitis of NA Active [facility] knee, right knee / Clinic Main M70.51(ICD-10) [facility] Repository 05/11/2018 Unknown M50.10 - Cervical disc Acevedo, Active [facility] disorder with [facility] radiculopathy, Hospital unspecified cervical Repository region / M50.10(ICD-10) 07/03/2016 Active 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, [facility] lumbar region / [place] M51.36(ICD-10) Repository 07/03/2016 Active Intervertebral disc NA Active [facility] disorders with [facility] radiculopathy, lumbar [place] region / Repository M51.16(ICD-10) 04/30/2018 Active Spinal stenosis, NA Active [facility] cervical region / Clinic Main M48.02(ICD-10) [facility] Repository 09/02/2016 Active Other cervical disc NA Active [facility] degeneration, Clinic [facility] unspecified cervical [place] region / Repository M50.30(ICD-10) 09/02/2016 Active Cervical disc disorder NA Active [facility] with radiculopathy, Clinic Main unspecified cervical [place] region / Repository M50.10(ICD-10) 04/30/2018 Active Dorsalgia, unspecified NA Active [facility] / M54.9(ICD-10) Clinic Main [facility] Rep[facility] 04/27/2018 Active Encounter for other CORNIELLO, Active [facility] preprocedural KAY L ([employer]) Clinic Main examination / [place] Z01.818(ICD-10) Repository 04/27/2018 Active Encounter for GRISELDA, Active [facility] immunization / KAY L ([employer]) Clinic Main Z23(ICD-10) [facility] Repository 07/09/2018 Unknown L98.492 - Non-pressure Bonilla Alvarez Active [place] chronic ulcer of skin Community of other sites with Hospital fat layer exposed / Repository L98.492(ICD-10) 03/12/2018 Active 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 [facility] (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 therapy Clinic Main / Z79.899(ICD-10) [facility] Repository 06/28/2018 Unknown S20.229A - Contusion Bonilla Alvarez Active [facility] of unspecified back Community wall of thorax, Hospital initial encounter / Repository S20.229A(ICD-10) 02/02/2018 Active Abnormal NA Active [facility] electrocardiogram Clinic Main (ECG) (EKG) / [place] R94.31(ICD-10) Repository 02/18/2018 Unknown R94.31 - Abnormal Holly, [place] Active [facility] electrocardiogram Community [ECG] [EKG] / Hospital R94.31(ICD-10) Repository 02/18/2018 Unknown R42 - Dizziness and Holly, [place] Active [place] giddiness / Community R42(ICD-10) Hospital Repository 01/20/2018 Active Dizziness and NA Active [facility] giddiness / Clinic Main R42(ICD-10) [facility] Repository 12/20/2017 Active Anemia, unspecified / NA Active [facility] D64.9(ICD-10) Clinic Main [place] Repository 01/07/2018 Unknown Z48.89 - Encounter for Bonilla Alvarez Active [place] other specified Community surgical aftercare / Hospital Z48.89(ICD-10) Repository 12/14/2017 Unknown L76.31 - Bonilla Alvarez Active [facility] Postprocedural Community hematoma of skin and Hospital subcutaneous tissue Repository following a dermatologic procedure / L76.31(ICD-10) 12/14/2017 Unknown T81.4XXA - Infection Bonilla Alvarez Active [facility] following a procedure, Community initial encounter / Hospital T81.4XXA(ICD-10) Repository 12/14/2017 Unknown S21.209A - Unspecified Bonilla Alvarez Active [place] open wound of Community unspecified back wall Hospital of thorax without Repository penetration into thoracic cavity, initial encounter / S21.209A(ICD-10) 12/14/2017 Unknown D17.1 - Benign Bonilla Alvarez Active [facility] lipomatous neoplasm of Community skin and subcutaneous Hospital tissue of trunk / Repository D17.1(ICD-10) 11/04/2017 Active Encounter for NA Active [facility] screening mammogram [facility] Main for malignant neoplasm [place] of breast / Repository Z12.31(ICD-10) 10/23/2017 Unknown L76.33 - Bonilla Alvarez Active [facility] Postprocedural seroma [facility] of skin and Hospital subcutaneous tissue Repository following a dermatologic procedure / L76.33(ICD-10) 10/10/2017 Unknown Z80.8 - Family history Bonilla Alvarez Active [facility] of malignant neoplasm Community of other organs or Hospital systems / Repository Z80.8(ICD-10) 10/10/2017 Unknown Z81.1 - Family history Bonilla Alvarez Active [place] of alcohol abuse and Community dependence / Hospital Z81.1(ICD-10) Repository PROCEDURES PROCEDURES No Procedure Records FoundRESULTS RESULTS PROGRESS Observed: 10/19/2018 Status: COMPLETED Source: [place] 2:59 PM [facility] REPOSITORY HNO ID: [id number] Author: Mary (Pt) José Service: (none) Author Type: Physical Therapist Type: Progress Notes Filed: 10/19/2018 5:34 PM Note Text: Episode Visit Count: 8 Therapist That Will Oversee The Plan Of Care: Mary Kumar PT Start of Care Date: 09/16/18 Onset Date: 05/03/18 Patient Identified by Name and Date of : Yes REHABILITATION AND SPORTS THERAPY PHYSICAL THERAPY TREATMENT NOTE ASSESSMENT: Gay Coleman demonstrated difficulty with continual pain right knee and B low back. She has short term pain relief with US right knee. Right knee pain with slight decrease in pain and B low back pain increased following exercises. The patient will continue to benefit from continued skilled physical therapy for exercises Right knee and B low and US right knee. PLAN FOR NEXT VISIT: Continue with right knee and back strengthening and pain education cards and US right knee SUBJECTIVE: Patient reports her right knee is feeling stiff. She reports B low back is hurting, Pain Score: 7/10 (B low back stabbing pain.) Pain Location: Knee - Right Description: Stiffness Frequency: Continuous Post Treatment Pain Score: 6/10 (B low back 8/10, stabbing and constant) Pain Location: Knee - Right Post Treatment Pain Description: Stiffness (sharp at times with sit to stand) OBJECTIVE MEASURES WITH LEVEL OF FUNCTION: Tenderness to palpation right medial and lateral knee. TREATMENT: Therapeutic Exercise: 4: Sit to stand from chair with UE assist 1x10 and 1x5. 5: Recumbent stepper seat 14, level 1, 14 minutes. Subjective taken during this time. (Read the PNE cards Emotions and Pains durin during this time) 6: Seated LAQ 2x15 with 1.5 lb ankle weights, 5 sec hold, B 10: Bridging + Pelvic Tilt + TA, 5 sec holds, x15 11: Supine Posterior Pelvic Tilts + TA x15, 5 sec holds 12: Supine posterior pelvic tilt with marching 2x 10. Skilled Intervention: Patient was educated in proper exercise technique and purpose for exercises. Skilled judgment was provided in selection of appropriate interventions. Correct performance of therapeutic exercises was facilitated with verbal and visual cuing. Modalities: Ultrasound ? Body Region Treated - Ultrasound: Knee Right (lateral and inferior aspect) Patient Position: supine with wedge + pillow under head AND green bolster under knees Mode: 100% w/cm2: 1.5 MHZ: 1 Minutes: 10 See flowsheet for details regarding treatment. Skilled Intervention: Proper administration and selection of modality based on clinical presentation, deficits, and needs. Patient response monitored throughout treatment. Neuromuscular Re-Education: 1: Read the PNE cards Emotions and Pain while patient was on the seated stepper x 7 minutes. Skilled Intervention: Emotions and Pain Patient educated on the relationship between emotions and pain, and the role that fear, catastrophization, nociception and threat play in persistent pain, by activating the bodies alarm system, resulting in hypersensitive nerves. Metaphors incorporated to foster deep learning and paradigm shift for patient. Billing: [facility]: Therapeutic Exercise (98276): 1:1 time: 33 minutes (2 units: 23-37 mins) Neuromuscular Re-education (64410): 1:1 time: no charge as cards were read and discussed when on Recumbent stepper. Modalities Ultrasound (77820) 1:1 time: 10 minutes1 unit: 8-22 mins Total time: 43 minutes Hayes Shepherd, PT-A Mary Kumar PT CNTHERAPY Observed: 10/19/2018 Status: COMPLETED Source: [place] 2:00 PM [facility] REPOSITORY OT/PT/Speech Visit (PTWS) GAY COLEMAN ([id number]) 1965 F Date Time Provider Department 10/19/18 2:00 PM HAYES [place] (PATIENT SUPPORT ASSOCIATE) PTWS Date Time Provider Department Center 10/19/2018 2:00 PM [id number], NANCY (PATIENT SUPPORT ASSOCIATE) PTWS [facility] Reason for Visit: Physical Therapy [503] Primary Visit Diagnosis:Acute pain of right knee [M25.561] Other Visit Diagnoses:Patellar tendinitis of right knee [M76.51] Weakness of both legs [R29.898] DDD (degenerative disc disease), lumbar [M51.36] Allergies As of Date: 10/19/2018 Noted Allergy Reaction DUST 12/26/2006 NABUMETONE 10/04/2014 8 - GI Upset SEASONAL ALLERGIES 06/19/2015 14 - Other: See Comments SMOKE 12/26/2006 THIMERISOL (THIMEROSAL) 01/09/2016 5 - Intolerance Date Reviewed: 09/10/2018 Reviewed by: Canelo Hill - Fully Assessed Prescriptions as of 10/19/2018 Sig: ALBUTEROL SULFATE 2.5 MG/3 ML* Use 3 mL via nebulizer every * ALBUTEROL SULFATE HFA 90 MCG/* Inhale 2 Puffs as instructed * BACLOFEN 10 MG TABLET Take 1 tablet by mouth twice * Patient taking differently: Take 10 mg by mouth three justino* BUDESONIDE-FORMOTEROL HFA 80 * Inhale 2 Puffs as instructed * BUPROPION HCL SR 150 MG TABLE* TAKE ONE TABLET BY MOUTH TWIC* CHOLECALCIFEROL (VITAMIN D3) * Take 5,000 Units by mouth onc* CLOBETASOL 0.05 % TOPICAL CRE* Apply to affected area twice * COMPOUNDED PRESCRIPTION Order: cock up splints (2) D* COMPOUNDED PRESCRIPTION Consult pulmonary rehab COMPOUNDED PRESCRIPTION 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 HYDROCODONE 5 MG-ACETAMINOPHE* Take 1 tablet by mouth every * LINZESS 290 MCG CAPSULE TAKE 1 CAPSULE BY MOUTH ONCE * MECLIZINE 12.5 MG TABLET Take 1-2 tablets by mouth twi* METOPROLOL TARTRATE 25 MG TAB* Take 25 mg by mouth twice sudhakar* MIRTAZAPINE 30 MG TABLET Take 30 mg by mouth daily at * MYRBETRIQ 25 MG TABLET,EXTEND* TAKE ONE TABLET BY MOUTH ONCE* NALTREXONE 8 MG-BUPROPION 90 * Take 1 tablet by mouth as dir* PREGABALIN 100 MG CAPSULE Take 100 mg by mouth three ti* TRANSCUTANEOUS ELECTRICAL NER* 1 Device as needed. TOPIRAMATE 25 MG TABLET Take 1 tablet by mouth twice * Progress Notes: Mary Kumar PT 10/19/2018 5:34 PM Signed Episode Visit Count: 8 Therapist That Will Oversee The Plan Of Care: Mary Kumar PT Start of Care Date: 09/16/18 Onset Date: 05/03/18 Patient Identified by Name and Date of : Yes REHABILITATION AND SPORTS THERAPY PHYSICAL THERAPY TREATMENT NOTE ASSESSMENT: Gay Coleman demonstrated difficulty with continual pain right knee and B low back. She has short term pain relief with US right knee. Right knee pain with slight decrease in pain and B low back pain increased following exercises. The patient will continue to benefit from continued skilled physical therapy for exercises Right knee and B low and US right knee. PLAN FOR NEXT VISIT: Continue with right knee and back strengthening and pain education cards and US right knee SUBJECTIVE: Patient reports her right knee is feeling stiff. She reports B low back is hurting, Pain Score: 7/10 (B low back stabbing pain.) Pain Location: Knee - Right Description: Stiffness Frequency: Continuous Post Treatment Pain Score: 6/10 (B low back 8/10, stabbing and constant) Pain Location: Knee - Right Post Treatment Pain Description: Stiffness (sharp at times with sit to stand) OBJECTIVE MEASURES WITH LEVEL OF FUNCTION: Tenderness to palpation right medial and lateral knee. TREATMENT: Therapeutic Exercise: 4: Sit to stand from chair with UE assist 1x10 and 1x5. 5: Recumbent stepper seat 14, level 1, 14 minutes. Subjective taken during this time. (Read the PNE cards Emotions and Pains durin during this time) 6: Seated LAQ 2x15 with 1.5 lb ankle weights, 5 sec hold, B 10: Bridging + Pelvic Tilt + TA, 5 sec holds, x15 11: Supine Posterior Pelvic Tilts + TA x15, 5 sec holds 12: Supine posterior pelvic tilt with marching 2x 10. Skilled Intervention: Patient was educated in proper exercise technique and purpose for exercises. Skilled judgment was provided in selection of appropriate interventions. Correct performance of therapeutic exercises was facilitated with verbal and visual cuing. Modalities: Ultrasound ? Body Region Treated - Ultrasound: Knee Right (lateral and inferior aspect) Patient Position: supine with wedge + pillow under head AND green bolster under knees Mode: 100% w/cm2: 1.5 MHZ: 1 Minutes: 10 See flowsheet for details regarding treatment. Skilled Intervention: Proper administration and selection of modality based on clinical presentation, deficits, and needs. Patient response monitored throughout treatment. Neuromuscular Re-Education: 1: Read the PNE cards Emotions and Pain while patient was on the seated stepper x 7 minutes. Skilled Intervention: Emotions and Pain Patient educated on the relationship between emotions and pain, and the role that fear, catastrophization, nociception and threat play in persistent pain, by activating the bodies alarm system, resulting in hypersensitive nerves. Metaphors incorporated to foster deep learning and paradigm shift for patient. Billing: [facility]: Therapeutic Exercise ([id number]): 1:1 time: 33 minutes (2 units: 23-37 mins) Neuromuscular Re-education (24679): 1:1 time: no charge as cards were read and discussed when on Recumbent stepper. Modalities Ultrasound ([id number]) 1:1 time: 10 minutes1 unit: 8-22 mins Total time: 43 minutes Hayes Shepherd PTJovnana Kumar PT Previous Version Follow-up and Disposition History Recorded PROGRESS Observed: 10/19/2018 Status: COMPLETED Source: [place] 8:27 AM [facility] [place] REPOSITORY HNO ID: [id number] Author: Mary (Pt) José Service: (none) Author Type: Physical Therapist Type: Progress Notes Filed: 10/19/2018 8:37 AM Note Text: Episode Visit Count: 7 Therapist That Will Oversee The Plan Of Care: Mary Kumar PT Start of Care Date: 09/16/18 Onset Date: 05/03/18 Patient Identified by Name and Date of : Yes REHABILITATION AND SPORTS THERAPY PHYSICAL THERAPY TREATMENT NOTE ASSESSMENT: Gay Coleman demonstrated slight improvement in her R knee pain following today's session but no change in her low back pain. She completed the Oswestry Questionnaire today and it shows she has severe disability and the STarT low back questionnaire shows moderate disability. Patient's poor relationship with her family and chronic pain behaviors make her an excellent candidate for PNE. She is beginning her journey of gaining knowledge and ways to cope with her pain. She is very engaged during education with the PNE cards and actively asks questions. The patient will continue to benefit from continued skilled physical therapy for with a combination of exercise, PNE cards, and US to help with her chronic R knee and chronic low back pain. PLAN FOR NEXT VISIT: Knee and Low back exercises. PNE Topic Cards: Emotions and Pain. US SUBJECTIVE: Patient stated I am mentally screwed up beacuse of family issues! She said ultrasound helped at last visit, but then the wing day was in a lot of pain in her R knee. She also reports pain in hips that comes and goes. Will be seeing her plastic surgeon later today. Pain Score: 6/10 (8/10, Back, stabbing/like a bus hit, constant) Pain Location: Knee - Right Description: Aching Frequency: Intermittent Post Treatment Pain Score: 5/10 (no change in low back pain) Pain Location: Knee - Right Post Treatment Pain Description: Aching OBJECTIVE MEASURES WITH LEVEL OF FUNCTION: Good Transverse Abdominal engagement during exercises. TREATMENT: Therapeutic Exercise: 5: Recumbent stepper seat 14, level 1, 14 minutes. Subjective taken during this time. (Read the Brain's Body Map Cards during this time) 6: Seated LAQ 2x10 with 1.5 lb ankle weights, 5 sec hold, B 10: Bridging + Pelvic Tilt + TA, 5 sec holds, x15 11: Supine Posterior Pelvic Tilts + TA x15, 5 sec holds 12: *Supine posterior pelvic tilt with marching 2x 10. Skilled Intervention: Patient was educated in proper exercise technique and purpose for exercises. Reviewed and educated patient on additions/changes for home exercise program as above (*) Skilled judgment was provided in selection of appropriate interventions. Patient education as noted. Neuromuscular Re-Education: 1: Read The Brain's Body Map Cards and discussed. Pain Comes From the Brain (aka the Homunculus) Patient was educated on the concept of pain as an output of the brain, including nociception versus pain, inhibition and facilitation, and threat value using metaphors to promote deep learning. Education that different parts of the brain process pain. Face parts take up a large portion of the pain map in the brain. Homework: Patient encouraged to recall/record instances where they have had tissue injury but no pain, such as bruise or cut. Skilled Intervention: Patient education as noted. Modalities: Ultrasound Body Region Treated - Ultrasound: Knee Right (lateral and inferior aspect) Patient Position: supine with wedge + pillow under head AND green bolster under knees Mode: 100% w/cm2: 1.5 MHZ: 1 Minutes: 10 See flowsheet for details regarding treatment. Skilled Intervention: Proper administration and selection of modality based on clinical presentation, deficits, and needs. Patient response monitored throughout treatment. Billing: [facility]: Therapeutic Exercise ([id number]): 1:1 time: 31 minutes (2 units: 23-37 mins) Neuromuscular Re-education (40039): 1:1 time: (no charge) as cards read and discussed when on the recumbent stepper Modalities Ultrasound ([id number]) 1:1 time: 10 minutes1 unit: 8-22 mins Total time: 41 minutes Mary Kumar PT CNTHERAPY Observed: 10/15/2018 Status: COMPLETED Source: [place] 1:15 PM [facility] REPOSITORY OT/PT/Speech Visit (PTWS) GAY COLEMAN ([id number]) 1965 F Date Time Provider Department 10/15/18 1:15 PM MARY KUMAR (PT) PTWS Date Time Provider Department Center 10/15/2018 1:15 PM [id number], DIANA (PT)PTWS [facility] Reason for Visit: Physical Therapy [503] Primary Visit Diagnosis:Acute pain of right knee [M25.561] Other Visit Diagnoses:Patellar tendinitis of right knee [M76.51] Weakness of both legs [R29.898] DDD (degenerative disc disease), lumbar [M51.36] Allergies As of Date: 10/15/2018 Noted Allergy Reaction DUST 12/26/2006 NABUMETONE 10/04/2014 8 - GI Upset SEASONAL ALLERGIES 06/19/2015 14 - Other: See Comments SMOKE 12/26/2006 THIMERISOL (THIMEROSAL) 01/09/2016 5 - Intolerance Date Reviewed: 09/10/2018 Reviewed by: Canelo Hill - Fully Assessed Prescriptions as of 10/15/2018 Sig: ALBUTEROL SULFATE 2.5 MG/3 ML* Use 3 mL via nebulizer every * ALBUTEROL SULFATE HFA 90 MCG/* Inhale 2 Puffs as instructed * BACLOFEN 10 MG TABLET Take 1 tablet by mouth twice * Patient taking differently: Take 10 mg by mouth three justino* BUDESONIDE-FORMOTEROL HFA 80 * Inhale 2 Puffs as instructed * BUPROPION HCL SR 150 MG TABLE* TAKE ONE TABLET BY MOUTH TWIC* CHOLECALCIFEROL (VITAMIN D3) * Take 5,000 Units by mouth onc* CLOBETASOL 0.05 % TOPICAL CRE* Apply to affected area twice * COMPOUNDED PRESCRIPTION Order: cock up splints (2) D* COMPOUNDED PRESCRIPTION Consult pulmonary rehab COMPOUNDED PRESCRIPTION 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 HYDROCODONE 5 MG-ACETAMINOPHE* Take 1 tablet by mouth every * LINZESS 290 MCG CAPSULE TAKE 1 CAPSULE BY MOUTH ONCE * MECLIZINE 12.5 MG TABLET Take 1-2 tablets by mouth twi* METOPROLOL TARTRATE 25 MG TAB* Take 25 mg by mouth twice sudhakar* MIRTAZAPINE 30 MG TABLET Take 30 mg by mouth daily at * MYRBETRIQ 25 MG TABLET,EXTEND* TAKE ONE TABLET BY MOUTH ONCE* NALTREXONE 8 MG-BUPROPION 90 * Take 1 tablet by mouth as dir* PREGABALIN 100 MG CAPSULE Take 100 mg by mouth three ti* TRANSCUTANEOUS ELECTRICAL NER* 1 Device as needed. TOPIRAMATE 25 MG TABLET Take 1 tablet by mouth twice * Progress Notes: Mary Kumar PT 10/19/2018 8:37 AM Signed Episode Visit Count: 7 Therapist That Will Oversee The Plan Of Care: Mary Kumar PT Start of Care Date: 09/16/18 Onset Date: 05/03/18 Patient Identified by Name and Date of : Yes REHABILITATION AND SPORTS THERAPY PHYSICAL THERAPY TREATMENT NOTE ASSESSMENT: Gay Coleman demonstrated slight improvement in her R knee pain following today's session but no change in her low back pain. She completed the Oswestry Questionnaire today and it shows she has severe disability and the STarT low back questionnaire shows moderate disability. Patient's poor relationship with her family and chronic pain behaviors make her an excellent candidate for PNE. She is beginning her journey of gaining knowledge and ways to cope with her pain. She is very engaged during education with the PNE cards and actively asks questions. The patient will continue to benefit from continued skilled physical therapy for with a combination of exercise, PNE cards, and US to help with her chronic R knee and chronic low back pain. PLAN FOR NEXT VISIT: Knee and Low back exercises. PNE Topic Cards: Emotions and Pain. US SUBJECTIVE: Patient stated I am mentally screwed up beacuse of family issues! She said ultrasound helped at last visit, but then the day was in a lot of pain in her R knee. She also reports pain in hips that comes and goes. Will be seeing her plastic surgeon later today. Pain Score: 6/10 (8/10, Back, stabbing/like a bus hit, constant) Pain Location: Knee - Right Description: Aching Frequency: Intermittent Post Treatment Pain Score: 5/10 (no change in low back pain) Pain Location: Knee - Right Post Treatment Pain Description: Aching OBJECTIVE MEASURES WITH LEVEL OF FUNCTION: Good Transverse Abdominal engagement during exercises. TREATMENT: Therapeutic Exercise: 5: Recumbent stepper seat 14, level 1, 14 minutes. Subjective taken during this time. (Read the Brain's Body Map Cards during this time) 6: Seated LAQ 2x10 with 1.5 lb ankle weights, 5 sec hold, B 10: Bridging + Pelvic Tilt + TA, 5 sec holds, x15 11: Supine Posterior Pelvic Tilts + TA x15, 5 sec holds 12: *Supine posterior pelvic tilt with marching 2x 10. Skilled Intervention: Patient was educated in proper exercise technique and purpose for exercises. Reviewed and educated patient on additions/changes for home exercise program as above (*) Skilled judgment was provided in selection of appropriate interventions. Patient education as noted. Neuromuscular Re-Education: 1: Read The Brain's Body Map Cards and discussed. Pain Comes From the Brain (aka the Homunculus) Patient was educated on the concept of pain as an output of the brain, including nociception versus pain, inhibition and facilitation, and threat value using metaphors to promote deep learning. Education that different parts of the brain process pain. Face parts take up a large portion of the pain map in the brain. Homework: Patient encouraged to recall/record instances where they have had tissue injury but no pain, such as bruise or cut. Skilled Intervention: Patient education as noted. Modalities: Ultrasound Body Region Treated - Ultrasound: Knee Right (lateral and inferior aspect) Patient Position: supine with wedge + pillow under head AND green bolster under knees Mode: 100% w/cm2: 1.5 MHZ: 1 Minutes: 10 See flowsheet for details regarding treatment. Skilled Intervention: Proper administration and selection of modality based on clinical presentation, deficits, and needs. Patient response monitored throughout treatment. Billing: [facility]: Therapeutic Exercise ([id number]): 1:1 time: 31 minutes (2 units: 23-37 mins) Neuromuscular Re-education (98010): 1:1 time: (no charge) as cards read and discussed when on the recumbent stepper Modalities Ultrasound (52408) 1:1 time: 10 minutes1 unit: 8-22 mins Total time: 41 minutes Mary Kumar PT PROGRESS Observed: 10/12/2018 Status: COMPLETED Source: [place] 4:31 PM [facility] REPOSITORY HNO ID: [id number] Author: Mary (Pt) José Service: (none) Author Type: Physical Therapist Type: Progress Notes Filed: 10/13/2018 2:20 PM Note Text: Episode Visit Count: 6 Therapist That Will Oversee The Plan Of Care: Mary Kumar PT Start of Care Date: 09/16/18 Onset Date: 05/03/18 Patient Identified by Name and Date of : Yes REHABILITATION AND SPORTS THERAPY PHYSICAL THERAPY TREATMENT NOTE ASSESSMENT: Gay Coleman demonstrated improvements in pain of right knee x 2 days after US and than pain returns. She has difficulty with back and knee pain on right today. Patient with a reduction in right knee pain and no change in back pain. Deferred neuroscience of pain cards today and patient will continue to benefit from these cards in future visits. The patient will continue to benefit from continued skilled physical therapy for progression of exercises for back and right knee and Neuroscience of pain cards. PLAN FOR NEXT VISIT: Con't with knee and hip strengthening, B. Core strengthening for low back. pain education cards SUBJECTIVE: Patient reports knee is hurting today but gets about 2 days pain relief with US treatments. She reports back pain 0/10 at rest and pain spikes up with movements. Patient reports doing exercises 2x/day at home. Pain Score: 7/10 (Back B lumbar 0/10 rest and spikes up to 8/10 with movement) Pain Location: Knee - Right Description: Aching;Sharp Frequency: Intermittent Post Treatment Pain Score: 5/10 (No change with back pain.) Pain Location: Knee - Right Post Treatment Pain Description: Dull OBJECTIVE MEASURES WITH LEVEL OF FUNCTION: Patient able to advance hip abductor strengthening with no c/o increase pain. TREATMENT: Therapeutic Exercise: 1: Supine B SLR + Pelvic Tilt +TA x12, 3 sec holds 2: Side lying Hip ABD + TA x15, 3 sec holds, B 3: Prone Hip Ext x15, 3 sec holds, B 4: Side lying Hip ADD + TA x12, 3 sec holds, B 5: Recumbent stepper seat 14, level 1, 5 minutes. Subjective taken during this time. 6: Seated LAQ x15 with 1 lb ankle weights, 5 sec hold, B 7: Side lying B clam shells x 15. 8: Supine B SAQ 2-3 second hold x 12. 9: Wall slide in small painfree range 2x10. 10: Bridging with UE assist 1x15. 11: Supine Posterior Pelvic Titls x15 12: Supine posterior pelvic tilt with marching 2x 10. Skilled Intervention: Patient was educated in proper exercise technique and purpose for exercises. Skilled judgment was provided in selection of appropriate interventions. Correct performance of therapeutic exercises was facilitated with verbal and visual cuing. Modalities: Ultrasound Body Region Treated - Ultrasound: Knee Right Patient Position: supine with green bolster under knees Mode: 100% w/cm2: 1.5 MHZ: 1 Minutes: 10 See flowsheet for details regarding treatment. Skilled Intervention: Proper administration and selection of modality based on clinical presentation, deficits, and needs. Patient response monitored throughout treatment. Billing: [facility]: Therapeutic Exercise ([id number]): 1:1 time: 35 minutes (2 units: 23-37 mins) Modalities Ultrasound ([id number]) 1:1 time: 10 minutes1 unit: 8-22 mins Total time: 45 minutes CHANO Mar PT CNTHERAPY Observed: 10/12/2018 Status: COMPLETED Source: [place] 1:15 PM [facility] REPOSITORY OT/PT/Speech Visit (PTWS) SUDHAKARGAY LEPE ([id number]) 1965 F Date Time Provider Department 10/12/18 1:15 PM HAYES [place] (PATIENT SUPPORT ASSOCIATE) PTWS Date Time Provider Department Center 10/12/2018 1:15 PM [id number], NANCY (PATIENT SUPPORT ASSOCIATE) PTWS [facility] Reason for Visit: Physical Therapy [503] Primary Visit Diagnosis:Acute pain of right knee [M25.561] Other Visit Diagnoses:Patellar tendinitis of right knee [M76.51] Weakness of both legs [R29.898] DDD (degenerative disc disease), lumbar [M51.36] Allergies As of Date: 10/12/2018 Noted Allergy Reaction DUST 12/26/2006 NABUMETONE 10/04/2014 8 - GI Upset SEASONAL ALLERGIES 06/19/2015 14 - Other: See Comments SMOKE 12/26/2006 THIMERISOL (THIMEROSAL) 01/09/2016 5 - Intolerance Date Reviewed: 09/10/2018 Reviewed by: Canelo Hill - Fully Assessed Prescriptions as of 10/12/2018 Sig: ALBUTEROL SULFATE 2.5 MG/3 ML* Use 3 mL via nebulizer every * ALBUTEROL SULFATE HFA 90 MCG/* Inhale 2 Puffs as instructed * BACLOFEN 10 MG TABLET Take 1 tablet by mouth twice * Patient taking differently: Take 10 mg by mouth three justino* BUDESONIDE-FORMOTEROL HFA 80 * Inhale 2 Puffs as instructed * BUPROPION HCL SR 150 MG TABLE* TAKE ONE TABLET BY MOUTH TWIC* CHOLECALCIFEROL (VITAMIN D3) * Take 5,000 Units by mouth onc* CLOBETASOL 0.05 % TOPICAL CRE* Apply to affected area twice * COMPOUNDED PRESCRIPTION Order: cock up splints (2) D* COMPOUNDED PRESCRIPTION Consult pulmonary rehab COMPOUNDED PRESCRIPTION 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 HYDROCODONE 5 MG-ACETAMINOPHE* Take 1 tablet by mouth every * LINZESS 290 MCG CAPSULE TAKE 1 CAPSULE BY MOUTH ONCE * MECLIZINE 12.5 MG TABLET Take 1-2 tablets by mouth twi* METOPROLOL TARTRATE 25 MG TAB* Take 25 mg by mouth twice sudhakar* MIRTAZAPINE 30 MG TABLET Take 30 mg by mouth daily at * MYRBETRIQ 25 MG TABLET,EXTEND* TAKE ONE TABLET BY MOUTH ONCE* NALTREXONE 8 MG-BUPROPION 90 * Take 1 tablet by mouth as dir* PREGABALIN 100 MG CAPSULE Take 100 mg by mouth three ti* TRANSCUTANEOUS ELECTRICAL NER* 1 Device as needed. TOPIRAMATE 25 MG TABLET Take 1 tablet by mouth twice * Progress Notes: Mary Kumar PT 10/13/2018 2:20 PM Signed Episode Visit Count: 6 Therapist That Will Oversee The Plan Of Care: Mary Kumar PT Start of Care Date: 09/16/18 Onset Date: 05/03/18 Patient Identified by Name and Date of : Yes REHABILITATION AND SPORTS THERAPY PHYSICAL THERAPY TREATMENT NOTE ASSESSMENT: Gay Coleman demonstrated improvements in pain of right knee x 2 days after US and than pain returns. She has difficulty with back and knee pain on right today. Patient with a reduction in right knee pain and no change in back pain. Deferred neuroscience of pain cards today and patient will continue to benefit from these cards in future visits. The patient will continue to benefit from continued skilled physical therapy for progression of exercises for back and right knee and Neuroscience of pain cards. PLAN FOR NEXT VISIT: Con't with knee and hip strengthening, B. Core strengthening for low back. pain education cards SUBJECTIVE: Patient reports knee is hurting today but gets about 2 days pain relief with US treatments. She reports back pain 0/10 at rest and pain spikes up with movements. Patient reports doing exercises 2x/day at home. Pain Score: 7/10 (Back B lumbar 0/10 rest and spikes up to 8/10 with movement) Pain Location: Knee - Right Description: Aching;Sharp Frequency: Intermittent Post Treatment Pain Score: 5/10 (No change with back pain.) Pain Location: Knee - Right Post Treatment Pain Description: Dull OBJECTIVE MEASURES WITH LEVEL OF FUNCTION: Patient able to advance hip abductor strengthening with no c/o increase pain. TREATMENT: Therapeutic Exercise: 1: Supine B SLR + Pelvic Tilt +TA x12, 3 sec holds 2: Side lying Hip ABD + TA x15, 3 sec holds, B 3: Prone Hip Ext x15, 3 sec holds, B 4: Side lying Hip ADD + TA x12, 3 sec holds, B 5: Recumbent stepper seat 14, level 1, 5 minutes. Subjective taken during this time. 6: Seated LAQ x15 with 1 lb ankle weights, 5 sec hold, B 7: Side lying B clam shells x 15. 8: Supine B SAQ 2-3 second hold x 12. 9: Wall slide in small painfree range 2x10. 10: Bridging with UE assist 1x15. 11: Supine Posterior Pelvic Titls x15 12: Supine posterior pelvic tilt with marching 2x 10. Skilled Intervention: Patient was educated in proper exercise technique and purpose for exercises. Skilled judgment was provided in selection of appropriate interventions. Correct performance of therapeutic exercises was facilitated with verbal and visual cuing. Modalities: Ultrasound Body Region Treated - Ultrasound: Knee Right Patient Position: supine with green bolster under knees Mode: 100% w/cm2: 1.5 MHZ: 1 Minutes: 10 See flowsheet for details regarding treatment. Skilled Intervention: Proper administration and selection of modality based on clinical presentation, deficits, and needs. Patient response monitored throughout treatment. Billing: [facility]: Therapeutic Exercise (12388): 1:1 time: 35 minutes (2 units: 23-37 mins) Modalities Ultrasound (91713) 1:1 time: 10 minutes1 unit: 8-22 mins Total time: 45 minutes Hayes Shepherd PT-Everett Kumar PT Previous Version Follow-up and Disposition History Recorded ORTHOPEDIC VISIT Observed: 10/10/2018 Status: F Source: [place] REPORT 11:10 AM [facility] REPOSITORY [facility] [address] [place] [id number] OFFICE VISIT Date of Service: 09/29/18 MR#: [id number] Acct: [id number] Name: GAY COLEMAN Rep #: [id number] : 1965 Provider: Mary Bullard MD Age/Sex: 52/F Location: [facility] [place] Status: Signed Intake Vital Signs09/29/18 Body Mass Index (BMI) 38.2 Intake Visit Reasons: Back Pain Is patient in pain?: Yes Allergies nabumetone Allergy (Verified 09/29/18 13:51) Hives thimerosal Allergy (Verified 09/29/18 13:51) Other naproxen [From Naprosyn] Adverse Reaction (Verified 09/29/18 13:51) Other oxycodone HCl [From Percocet] Adverse Reaction (Verified 09/29/18 13:51) Other birds Allergy (Uncoded 09/28/18 16:04) Other molds Allergy (Uncoded 09/28/18 16:04) Other seasonal Allergy (Uncoded 09/28/18 16:04) Other Medications Albuterol Aerosols [Ventolin Aerosols] 2.5 mg INHALATION Q6H PRN PRN 09/22/17 [History Confirmed 09/17/18] Albuterol Inhaler [Ventolin Hfa] 2 puff INHALATION Q4H PRN PRN 09/22/17 [History Confirmed 09/17/18] Baclofen [Lioresal] 10 mg PO TID 09/22/17 [History Confirmed 09/17/18] Calcium Carbonate/Vitamin D3 [Calcium 500-Vit D3 200 Tablet] 1 ea PO DAILY 09/22/17 [History Confirmed 09/17/18] Diclofenac Sodium 100 gm TP 4X/DAY 09/22/17 [History Confirmed 09/17/18] Diclofenac [Voltaren] 75 mg PO BIDCM 09/22/17 [History Confirmed 09/17/18] Econazole [Spectazole] 1 applic TOPICAL DAILY 09/22/17 [History Confirmed 09/17/18] Estrogens, Conjugated [Premarin] 0.9 mg PO DAILY 09/22/17 [History Confirmed 09/17/18] Fluoxetine [Prozac] 40 mg PO DAILY 09/22/17 [History Confirmed 09/17/18] Linaclotide [Linzess] 290 mcg PO DAILY 09/22/17 [History Confirmed 09/17/18] Mirabegron [Myrbetriq] 25 mg PO DAILY 09/22/17 [History Confirmed 09/17/18] Mirtazapine [Remeron] 22 mg PO QHS 09/22/17 [History Confirmed 09/17/18] Pregabalin [Lyrica] 100 mg PO TID 09/22/17 [History Confirmed 09/17/18] Pyridoxine HCl [Vitamin B-6] 100 mg PO DAILY 09/22/17 [History Confirmed 09/17/18] buPROPion SR [Wellbutrin SR (150mg tablets)] 150 mg PO BID 09/22/17 [History Confirmed 09/17/18] Fluticasone/Salmeterol [Advair 250/50 Mcg Diskus] 1 puff INHALATION BID 11/26/17 [History Confirmed 09/17/18] Docusate Sodium [Colace] 100 mg PO BID cap 11/29/17 [Rx Confirmed 09/17/18] Lactobacillus Combo No.11 [Probiotic] 1 ea PO DAILY #60 cap.sprink 11/29/17 [Rx Confirmed 09/17/18] Cholecalciferol (Vitamin D3) [Vitamin D3] 1,000 unit PO DAILY 03/18/18 [History Confirmed 09/17/18] Cyanocobalamin [Vitamin B12] 500 mcg PO DAILY@0800 03/18/18 [History Confirmed 09/17/18] guselkumab 100 mg/mL subcutaneous syringe 100 mg SC Q8W 07/23/18 [History Confirmed 09/17/18] Fluticasone Furoate [Arnuity Ellipta] 50 mcg IH PRN PRN 09/10/18 [History Confirmed 09/17/18] Topiramate [Topamax] 25 mg PO BID 09/10/18 [History Confirmed 09/17/18] levoFLOXacin tablet [Levaquin tablet] 500 mg PO DAILY #14 tab 09/17/18 [Rx] PFSH Medical History Lipoma of back (Chronic) Postoperative seroma of subcutaneous tissue after dermatologic procedure (Acute) Arthritis (Acute) Asthma (Acute) BREAST LUMP OR CYST (Acute) Bloating (Acute) Carpal tunnel syndrome (Acute) Cataract (Acute) Depression (Acute) GASTROINTESTIONAL PROBLEMS (Acute) Hearing problem (Acute) History of migraine headaches (Acute) Hives (Acute) IBS (irritable bowel syndrome) (Acute) LIPOMA UPPER BACK/POSTERIOR NECK (Acute) Leg weakness (Acute) Mass in neck (Acute) OAB (overactive bladder) (Acute) Osteoarthritis (Acute) Pneumonia (Acute) Polycystic ovary (Acute) Psoriasis (Acute) Recurrent infections (Acute) SPINAL STENOSIS - MULTIPLE BACK ISSUES (Acute) Seasonal allergies (Acute) Vision problems (Acute) Surgical History ADENOIDS AND TONSILS 1974 (Acute) CATARACT L AND R, TORIC LENS REPLACEMENT 2016 (Acute) COMPLETE HYSTERECTOMY WITH BSO 2015 (Acute) Deviated septum (Acute) EXCISION 8 CM PAINFUL SOFT TISSUE MASS (Acute) H/O bilateral breast reduction surgery (Acute 2012) RADIOFRQUENSY ABLATION 2016 (Acute) Family History Father Hypertension Mother Arthritis Hypertension Cancer Brother Alcohol abuse Aunt Diabetes Grandfather Alcohol abuse Grandfather Psychiatric care Cancer CVA (cerebral vascular accident) Grandmother Alcohol abuse Grandmother Arthritis Depression Other Family history of basal cell carcinoma Family history of skin cancer Social History Smoking Status: Never smoker alcohol intake: never substance use type: does not use what type of physical activity do you participate in: walking, swimming seatbelt use: always do you feel safe at home: Yes additional social history: SUN EXPOSURE: FREQUENTLY HPI Back Pain: Details: GAY COLEMAN is a 52 year old RHD F here today referred by Dr Acevedo for low back pain. Patient notes that she has had low back pain for many years. She denies any known injury. She states that she has bilateral thigh weakness. Patient notes that she has decreased range of motion. She has numbness of her entire legs. She denies any radiating pain. Patient notes that she has seen a chiropractor which was temporarily helpful. She has completed physical therapy but is unsure how long ago. Her pain is worse with movement and improved with laying. She takes baclofen, diclofenac, lyrica and norco for her neck pain. She denies bowel or bladder issues, gait instability or difficulty with hand dexterity. Patient has had multiple injections by Dr Malone which were not helpful. Patient is unsure of the levels. She did not she had an RFA, which did help some. She has had left foot surgery in 05/2018. She has a prior posterior neck lipoma removed in 09/2017. She had a postoperative infection and most recently had a skin graft placed in 11/2017 by plastic surgery. She is pending disability. She denies nicotine use. She states she has significant family stressors. She has a counselor. She has a overactive bladder, OLGA and COPD. She also complains of polyarthralgias. Ortho Exam Spine Neuro: Yes Clonus (none bilaterally), Ely's (negative bilaterally) and Babinski (downgoing bilaterally) General: alert, oriented x3 Skin: Yes healed (posterior right sided horizontal incision) Capillary Refill <2sec: Yes Palpable Pulses: 2+ dp/pt pulses Gait: normal gait (slow gait), other (can stand on heels and toes) Motor: strength 5/5 throughout Sensory Exam: no sensory deficits noted DTR's: Rt Triceps: 2+, Lt Triceps: 2+, Rt Biceps: 2+, Lt Biceps: 2+, Rt Brachioradialis: 2+, Lt Brachioradialis: 2+, Rt Patellar: 2+, Lt Patellar: 2+, Rt Ankle: 2+, Lt Ankle: 2+ Plantar Reflexes: Downgoing: bilateral Coordination: Romberg test normal SPINE TESTING CERVICAL THORACIC LUMBAR SLR: Negative Musculoskeletal General: Yes normal posture Cervical Spine: cervical ROM normal Thoracic/Lumbar Spine: pain with thoraco-lumbar ROM (worse with lumbar extension than flexion), thoraco-lumbar ROM limited, straight leg raise negative bilaterally Strength 0=absent - 5=normal Deltoid R (C5): 5, Deltoid L (C5): 5, R Bicep (C5-6): 5, L Bicep (C5-6): 5, R Wrist Extensor (C6): 5, L Wrist Extensor (C6): 5, R Tricep (C7): 5, L Tricep (C7): 5, R Finger Flexors (C8): 5, L Finger Flexors (C8): 5, R First Dorsal Interossei (C8): 5, L First Dorsal Interossei (C8): 5, R Hip Flexor (L1-3): 5, L Hip Flexor (L1-3): 5, R Quadriceps (L2-4): 5, L Quadriceps (L2-4): 5, R Anterior Tibialis (L4-5): 5, L Anterior Tibialis (L4- 5): 5, R Hamstrings (L5-S1): 5, L Hamstrings (L5-S1): 5, GS (S1): 5, L GS (S1): 5, R Peroneals (S1): 5, L Peroneals (S1): 5 Assessment AND Plan Problems 1. Polyarthralgia M25.50 2. Chronic bilateral low back pain without sciatica M54.5; G89.29 Plan Imaging: XR lumbar spine 09/29/2018 reveals diffuse spondylosis MRI lumbar spine CD 07/23/2018 reveals diffuse spondylosis with no significant central, lateral recess or foraminal stenosis MRI thoracic and cervical spine CD 04/30/2018 reveals diffuse spondylosis with no significant central, lateral recess or foraminal stenosis I/R/P: Ms. Coleman presents with back pain and polyarthralgias. Her imaging findings do not reveal neural compression. The natural history and course of the symptomatology of back pain was discussed in detail with the patient. I answered all questions regarding the mode of onset, pathophysiology, symptoms, imaging findings, treatment options regarding her diagnosis. Recommend referral to rheumatology. Continue care with Dr. Malone for back pain. Follow up as needed. Plan of care discussed. All questions answered. The patient verbalized understanding of the disease process and agreed to the treatment plan formulated for this visit. Orders Orders: Coding Level of Care Code Off vis,new,level 4 Diagnoses Polyarthralgia M25.50 Chronic bilateral low back pain without sciatica M54.5; G89.29 Back pain location: low back pain Chronicity: chronic Back pain laterality: bilateral Sciatica presence: without sciatica 10/10/18 1110 <Electronically signed by Mary Bullard MD> Date Mary Bullard MD Cosigner Signature: Date (if applicable) CC: Everton Cash, PROGRESS Observed: 10/08/2018 Status: COMPLETED Source: [place] 1:20 PM [facility] REPOSITORY HNO ID: [id number] Author: Mary (Pt) José Service: (none) Author Type: Physical Therapist Type: Progress Notes Filed: 10/12/2018 8:55 AM Note Text: Episode Visit Count: 5 Therapist That Will Oversee The Plan Of Care: Mary Kumar PT Start of Care Date: 09/16/18 Onset Date: 05/03/18 Patient Identified by Name and Date of : Yes REHABILITATION AND SPORTS THERAPY PHYSICAL THERAPY RE-EVALUATION PLAN OF CARE UPDATE: Assessment: Gay Coleman exhibits short term improvements in R knee. She was recommended for PT by Dr. Ibrahim for her low back pain and bilateral LE weakness, thus a re-evaluation was completed today due to addition of treatment for her back. Re-assured patient strengthening was already happening for her B LE weakness when she was referred for her acute R knee pain by Dr. Katz. Provided patient with PNE education today. Read the pain in the brain cards during ultrasound. Queenie seemed to understand the concepts and requires continued education to help her understand that pain in her brain can be retrained. She has had the low back pain for quite sometime and was treated back in 2015 and 2016 here at [facility]. She continues to be limited with walking and physical activities. She is progressing as expected towards her therapy goals as demonstrated by: home exercise program compliance and appointment compliance. She will benefit from continued skilled therapy requiring ther ex to focus on strengthening, neuro re-education to focus on PNE education, and ultrasound to help with R knee pain in order to improve her pain as well as her coping strategies toward her chronic low back pain. Functional gains: Increased independence with HEP Goals updated on 10/08/2018. R knee goals: Bowman in home exercise program. Patient will decrease pain rating by 2 points to meet minimal clinical important difference for numeric pain rating scale. (Goal for R knee: Best 3/10 and Worst: 6/10) Patient will increase strength of B LEs to 5/5 to allow for return to prior functional status and normalized gait mechanics. Perform squatting without pain. Demonstrate improvement on functional score: Patient will increase his/her score on the Lower Extremity Functional Scale by at least 9 points to indicate a Minimal Clinical Important Difference. (Goal: 34/80) Improve postural awareness. Patient will improved 30 sec STS to 16 reps. Patient will have not swelling at R knee cap joint line. Goals added 10/08/18 Patient will decrease pain rating by 2 points to meet minimal clinical important difference for numeric pain rating scale. (Goa for low back painl: 04/12) Patient will increase active ROM of lumbar spine to normal. Patient will increase strength of core to at least 4/5 to allow for perform ADLs. Patient will be able to develop coping skills and knowledge that pain in the brain can be retrained. G CODE REPORTING Based on clinical assessment and the score on the LEFS Assessment Tool, the G code and corresponding severity modifiers are documented below. Evaluation: 09/16/2018 Current Status: Mobility: Walking and Moving Around: G8978 CL 60-79% impaired Goal Status: Mobility: Walking and Moving Around: G8979 CK 40-59% impaired Re Evaluation: 10/08/2018 Current Status: Mobility: Walking and Moving Around: G8978 CL 60-79% impaired Goal Status: Mobility: Walking and Moving Around: G8979 CK 40-59% impaired Planned Interventions, Frequency, and Duration: 2x/week, 4 weeks Total Number of Visits Planned: 13 Patient to be seen for Therapeutic exercise;Manual therapy;Patient/Family/Caregiver Education;Neuromuscular re-education;Self-assisted management;Modalities;General Conditioning (PNE education)Ultrasound PLAN FOR NEXT VISIT: Con't with knee and hip strengthening, B. Core strengthening for low back. PNE cards. SUBJECTIVE: Patient found her exercise book and brought to therapy to show therapist. Went to [employer] and lost 0.5lbs. Saw Dr. Ibrahim yesterday and he told her she may need to change her mind set and change expectations and changing coping skills and to understand she is not going to be pain free. Patient has another order for PT from Dr. Ibrahim to treat her low back pain. Pain Score: 10 (8/10, back, feels like a semi trunk/bus hit, Constant) Pain Location: Knee - Right Description: Sharp;Aching Frequency: Intermittent (with movement) Post Treatment Pain Score: 5/10 Pain Location: Knee - Right Post Treatment Pain Description: Sharp OBJECTIVE MEASURES WITH LEVEL OF FUNCTION: Lumbar Spine AROM Lumbar Flexion: Normal Lumbar Extension: Moderate limitation (pain in back) Lumbar R Side-Bend: Moderate limitation (pain on R) Lumbar L Side-Bend: Moderate limitation (pain on L) Lumbar R Rotation: Normal Lumbar L Rotation: Normal LE Strength Trunk Strength: 3/5 Note for supine exercises: placed green wedge, then pillow, followed by a sheet as patient's skin graft in the back of her neck if it is not bandaged correctly leaks. Used gloves to remove linens as well as to wipe down large mat table once session complete. TREATMENT: Re-evaluation: Performed due to the following change of patient status: Order from Dr. Ibrahim to evaluate her low back pain and bilateral leg weakness Therapeutic Exercise: 9: Standing TKE with blue band 2x10, B 10: *Bridging + Pelvic Tilt + TA. 5 sec holds, x10 11: *Supine Posterior Pelvic Titls x10 12: *Standing Posterior pelvic Tilts x10, 5 sec holds Skilled Intervention: Patient was educated in proper exercise technique and purpose for exercises. Reviewed and educated patient on additions/changes for home exercise program as above (*) Skilled judgment was provided in selection of appropriate interventions. Provided written instruction for home exercise program to facilitate proper performance and compliance. Correct performance of therapeutic exercises was facilitated with verbal, visual and tactile cuing. Modalities: Ultrasound Body Region Treated - Ultrasound: Knee Right Patient Position: supine with green bolster under knees Mode: 100% w/cm2: 1.5 MHZ: 1 Minutes: 10 See flowsheet for details regarding treatment. Skilled Intervention: Proper administration and selection of modality based on clinical presentation, deficits, and needs. Patient response monitored throughout treatment. Neuromuscular Re-Education: performed during ultrasound treatment. Pain Comes From the Brain Patient was educated on the concept of pain as an output of the brain, including nociception versus pain, inhibition and facilitation, and threat value using metaphors to promote deep learning. Homework: Patient encouraged to recall/record instances where they have had tissue injury but no pain, such as bruise or cut. Skilled Intervention: Patient education as noted. Billing: [facility]: Re-Evaluation ([id number]) Therapeutic Exercise (66145): 1:1 time: 15 minutes (1 unit: 8-22 mins) Modalities Ultrasound (19099) 1:1 time: 10 minutes1 unit: 8-22 mins Total time: 40 minutes Mary Kumar PT CNTHERAPY Observed: 10/08/2018 Status: COMPLETED Source: [place] 1:15 PM [facility] REPOSITORY OT/PT/Speech Visit (PTWS) GAY COLEMAN ([id number]) 1965 Date Time Provider Department 10/08/18 1:15 PM MARY KUMAR (PT) PTWS Date Time Provider Department Center 10/08/2018 1:15 PM [id number], DIANA (PT)PTWS [facility] Reason for Visit: PT Re-eval [[id number]] Primary Visit Diagnosis:Acute pain of right knee [M25.561] Other Visit Diagnoses:Patellar tendinitis of right knee [M76.51] Weakness of both legs [R29.898] DDD (degenerative disc disease), lumbar [M51.36] Allergies As of Date: 10/08/2018 Noted Allergy Reaction DUST 12/26/2006 NABUMETONE 10/04/2014 8 - GI Upset SEASONAL ALLERGIES 06/19/2015 14 - Other: See Comments SMOKE 12/26/2006 THIMERISOL (THIMEROSAL) 01/09/2016 5 - Intolerance Date Reviewed: 09/10/2018 Reviewed by: Canelo Hill - Fully Assessed Prescriptions as of 10/08/2018 Sig: BUPROPION HCL SR 150 MG TABLE* TAKE ONE TABLET BY MOUTH TWIC* LINZESS 290 MCG CAPSULE TAKE 1 CAPSULE BY MOUTH ONCE * BUDESONIDE-FORMOTEROL HFA 80 * Inhale 2 Puffs as instructed * ALBUTEROL SULFATE 2.5 MG/3 ML* Use 3 mL via nebulizer every * TOPIRAMATE 25 MG TABLET Take 1 tablet by mouth twice * FLUOXETINE 40 MG CAPSULE TAKE ONE CAPSULE BY MOUTH ONC* MYRBETRIQ 25 MG TABLET,EXTEND* TAKE ONE TABLET BY MOUTH ONCE* METOPROLOL TARTRATE 25 MG TAB* Take 25 mg by mouth twice sudhakar* MIRTAZAPINE 30 MG TABLET Take 30 mg by mouth daily at * GUSELKUMAB 100 MG/ML SUBCUTAN* Inject subcutaneously. NALTREXONE 8 MG-BUPROPION 90 * Take 1 tablet by mouth as dir* CLOBETASOL 0.05 % TOPICAL CRE* Apply to affected area twice * HYDROCODONE 5 MG-ACETAMINOPHE* Take 1 tablet by mouth every * FLUTICASONE 50 MCG/ACTUATION * Use 2 Sprays in each nostril * COMPOUNDED PRESCRIPTION Aqua Therapy DX: E66.01; M5* COMPOUNDED PRESCRIPTION Consult pulmonary rehab CONJUGATED ESTROGENS 0.9 MG T* Take 1 tablet by mouth once d* PREGABALIN 100 MG CAPSULE Take 100 mg by mouth three ti* MECLIZINE 12.5 MG TABLET Take 1-2 tablets by mouth twi* ALBUTEROL SULFATE HFA 90 MCG/* Inhale 2 Puffs as instructed * DICLOFENAC SODIUM 75 MG TABLE* Take 1 tablet by mouth twice * DICLOFENAC 1 % TOPICAL GEL Apply to affected area four * BACLOFEN 10 MG TABLET Take 1 tablet by mouth twice * Patient taking differently: Take 10 mg by mouth three justino* TRANSCUTANEOUS ELECTRICAL NER* 1 Device as needed. COMPOUNDED PRESCRIPTION Order: cock up splints (2) D* CHOLECALCIFEROL (VITAMIN D3) * Take 5,000 Units by mouth onc* CYANOCOBALAMIN (VIT B-12) 1,0* Take 1,000 mcg by mouth once * DOCUSATE SODIUM 250 MG CAPSULE Take 250 mg by mouth once sudhakar* Progress Notes: Mary Kumar PT 10/12/2018 8:55 AM Addendum Episode Visit Count: 5 Therapist That Will Oversee The Plan Of Care: Mary Kumar PT Start of Care Date: 09/16/18 Onset Date: 05/03/18 Patient Identified by Name and Date of : Yes REHABILITATION AND SPORTS THERAPY PHYSICAL THERAPY RE-EVALUATION PLAN OF CARE UPDATE: Assessment: Gay Coleman exhibits short term improvements in R knee. She was recommended for PT by Dr. Ibrahim for her low back pain and bilateral LE weakness, thus a re-evaluation was completed today due to addition of treatment for her back. Re-assured patient strengthening was already happening for her B LE weakness when she was referred for her acute R knee pain by Dr. Katz. Provided patient with PNE education today. Read the pain in the brain cards during ultrasound. Queenie seemed to understand the concepts and requires continued education to help her understand that pain in her brain can be retrained. She has had the low back pain for quite sometime and was treated back in 2014 and 2016 here at [facility]. She continues to be limited with walking and physical activities. She is progressing as expected towards her therapy goals as demonstrated by: home exercise program compliance and appointment compliance. She will benefit from continued skilled therapy requiring ther ex to focus on strengthening, neuro re-education to focus on PNE education, and ultrasound to help with R knee pain in order to improve her pain as well as her coping strategies toward her chronic low back pain. Functional gains: Increased independence with HEP Goals updated on 10/08/2018. R knee goals: Bowman in home exercise program. Patient will decrease pain rating by 2 points to meet minimal clinical important difference for numeric pain rating scale. (Goal for R knee: Best 3/10 and Worst: 6/10) Patient will increase strength of B LEs to 5/5 to allow for return to prior functional status and normalized gait mechanics. Perform squatting without pain. Demonstrate improvement on functional score: Patient will increase his/her score on the Lower Extremity Functional Scale by at least 9 points to indicate a Minimal Clinical Important Difference. (Goal: 34/80) Improve postural awareness. Patient will improved 30 sec STS to 16 reps. Patient will have not swelling at R knee cap joint line. Goals added 10/08/18 Patient will decrease pain rating by 2 points to meet minimal clinical important difference for numeric pain rating scale. (Goa for low back painl: 6/10) Patient will increase active ROM of lumbar spine to normal. Patient will increase strength of core to at least 4/5 to allow for perform ADLs. Patient will be able to develop coping skills and knowledge that pain in the brain can be retrained. G CODE REPORTING Based on clinical assessment and the score on the LEFS Assessment Tool, the G code and corresponding severity modifiers are documented below. Evaluation: 09/16/2018 Current Status: Mobility: Walking and Moving Around: G8978 CL 60-79% impaired Goal Status: Mobility: Walking and Moving Around: G8979 CK 40-59% impaired Re Evaluation: 10/08/2018 Current Status: Mobility: Walking and Moving Around: G8978 CL 60-79% impaired Goal Status: Mobility: Walking and Moving Around: G8979 CK 40-59% impaired Planned Interventions, Frequency, and Duration: 2x/week, 4 weeks Total Number of Visits Planned: 13 Patient to be seen for Therapeutic exercise;Manual therapy;Patient/Family/Caregiver Education;Neuromuscular re-education;Self-assisted management;Modalities;General Conditioning (PNE education)Ultrasound PLAN FOR NEXT VISIT: Con't with knee and hip strengthening, B. Core strengthening for low back. PNE cards. SUBJECTIVE: Patient found her exercise book and brought to therapy to show therapist. Went to [employer] and lost 0.5lbs. Saw Dr. Ibrahim yesterday and he told her she may need to change her mind set and change expectations and changing coping skills and to understand she is not going to be pain free. Patient has another order for PT from Dr. Ibrahim to treat her low back pain. Pain Score: 6/10 (8/10, back, feels like a semi trunk/bus hit, Constant) Pain Location: Knee - Right Description: Sharp;Aching Frequency: Intermittent (with movement) Post Treatment Pain Score: 5/10 Pain Location: Knee - Right Post Treatment Pain Description: Sharp OBJECTIVE MEASURES WITH LEVEL OF FUNCTION: Lumbar Spine AROM Lumbar Flexion: Normal Lumbar Extension: Moderate limitation (pain in back) Lumbar R Side-Bend: Moderate limitation (pain on R) Lumbar L Side-Bend: Moderate limitation (pain on L) Lumbar R Rotation: Normal Lumbar L Rotation: Normal LE Strength Trunk Strength: 3/5 Note for supine exercises: placed green wedge, then pillow, followed by a sheet as patient's skin graft in the back of her neck if it is not bandaged correctly leaks. Used gloves to remove linens as well as to wipe down large mat table once session complete. TREATMENT: Re-evaluation: Performed due to the following change of patient status: Order from Dr. Ibrahim to evaluate her low back pain and bilateral leg weakness Therapeutic Exercise: 9: Standing TKE with blue band 2x10, B 10: *Bridging + Pelvic Tilt + TA. 5 sec holds, x10 11: *Supine Posterior Pelvic Titls x10 12: *Standing Posterior pelvic Tilts x10, 5 sec holds Skilled Intervention: Patient was educated in proper exercise technique and purpose for exercises. Reviewed and educated patient on additions/changes for home exercise program as above (*) Skilled judgment was provided in selection of appropriate interventions. Provided written instruction for home exercise program to facilitate proper performance and compliance. Correct performance of therapeutic exercises was facilitated with verbal, visual and tactile cuing. Modalities: Ultrasound Body Region Treated - Ultrasound: Knee Right Patient Position: supine with green bolster under knees Mode: 100% w/cm2: 1.5 MHZ: 1 Minutes: 10 See flowsheet for details regarding treatment. Skilled Intervention: Proper administration and selection of modality based on clinical presentation, deficits, and needs. Patient response monitored throughout treatment. Neuromuscular Re-Education: performed during ultrasound treatment. Pain Comes From the Brain Patient was educated on the concept of pain as an output of the brain, including nociception versus pain, inhibition and facilitation, and threat value using metaphors to promote deep learning. Homework: Patient encouraged to recall/record instances where they have had tissue injury but no pain, such as bruise or cut. Skilled Intervention: Patient education as noted. Billing: [facility]: Re-Evaluation ([id number]) Therapeutic Exercise ([id number]): 1:1 time: 15 minutes (1 unit: 8-22 mins) Modalities Ultrasound (17656) 1:1 time: 10 minutes1 unit: 8-22 mins Total time: 40 minutes Mary Kumar PT Previous Version PROGRESS Observed: 10/08/2018 Status: COMPLETED Source: [place] 12:08 PM [facility] REPOSITORY HNO ID: [id number] Author: Ehsan Sterling Service: (none) Author Type: Psychologist Type: Progress Notes Filed: 10/08/2018 12:11 PM Note Text: [facility] Progress Note Gay Coleman 10/08/2018 [id number] Provider: Ehsan Vasquez PSYD CPT Code: 99718 Psychotherapy 38-52 minutes Time: Approximately 45 minutes was spent in therapy. Parties Present: Patient Patient Presentation/Concerns: Queenie was very tearful today. She stated having a breakdown earlier in the week with a lot of anger and tears. An interaction concerning her pain management triggered many negative feelings. Today she came from [employer], which she states is supportive. She received a pin for losing 10lbs. She has restarted reading books on weight loss and emotional eating. Mental Status: Mood: neutral Affect: mood-congruent Thoughts/Associations:goal directed Suicidal/Homicidal Ideation: None expressed or evidenced Other Observations: None Therapy Focus Mood/affect regulation MEDICATIONS: Per medical record: Current Outpatient Prescriptions: buPROPion SR (ZYBAN SR; WELLBUTRIN SR) 150 mg 12 hr tablet TAKE ONE TABLET BY MOUTH TWICE DAILY LINZESS 290 mcg cap TAKE 1 CAPSULE BY MOUTH ONCE DAILY budesonide-formoterol (SYMBICORT) 80-4.5 mcg/actuation inhaler Inhale 2 Puffs as instructed twice daily. albuterol (PROVENTIL) 2.5 mg /3 mL (0.083 %) nebulizer solution Use 3 mL via nebulizer every 4 hours as needed for Wheezing/Shortness of Breath. Use over 5-15minutes. topiramate (TOPAMAX) 25 mg tablet Take 1 tablet by mouth twice daily. FLUoxetine HCl (PROZAC) 40 mg capsule TAKE ONE CAPSULE BY MOUTH ONCE DAILY MYRBETRIQ 25 mg Tb24 TAKE ONE TABLET BY MOUTH ONCE DAILY metoprolol tartrate, short acting, (LOPRESSOR) 25 mg tablet Take 25 mg by mouth twice daily. mirtazapine (REMERON) 30 mg tablet Take 30 mg by mouth daily at bedtime. guselkumab (TREMFYA) 100 mg/mL syrg Inject subcutaneously. naltrexone-bupropion (CONTRAVE) 8-90 mg TbER Take 1 tablet by mouth as directed. 2 tablets PO bid clobetasol (TEMOVATE) 0.05 % cream Apply to affected area twice daily. HYDROcodone-acetaminophen (NORCO) 5-325 mg per tablet Take 1 tablet by mouth every 6 hours as needed for Pain. For post op pain per Dr. Velasquez Fill Date: 05/26/18 fluticasone (FLONASE) 50 mcg/actuation nasal spray Use 2 Sprays in each nostril once daily. Rinse mouth after use. COMPOUNDED PRESCRIPTION Aqua Therapy DX: E66.01; M50.30; M51.36 COMPOUNDED PRESCRIPTION Consult pulmonary rehab estrogens conjugated (PREMARIN) 0.9 mg tablet Take 1 tablet by mouth once daily. pregabalin (LYRICA) 100 mg capsule Take 100 mg by mouth three times daily. meclizine (ANTIVERT) 12.5 mg tab Take 1-2 tablets by mouth twice daily as needed (dizziness). albuterol HFA (VENTOLIN HFA) 90 mcg/actuation inhaler Inhale 2 Puffs as instructed every 4 hours as needed for Wheezing/Shortness of Breath. diclofenac, EC, (VOLTAREN) 75 mg EC tablet Take 1 tablet by mouth twice daily. For pain/inflammation. Take with food. PER DR. MALONE diclofenac sodium (VOLTAREN) 1 % topical gel Apply to affected area four times daily. PER DR. MALONE baclofen (LIORESAL) 10 mg tablet Take 1 tablet by mouth twice daily. (Patient taking differently: Take 10 mg by mouth three times daily.) TENS Units malika 1 Device as needed. COMPOUNDED PRESCRIPTION Order: cock up splints (2)Dx: carpal tunnel syndrome bilateral Cholecalciferol, Vitamin D3, 5,000 unit tab Take 5,000 Units by mouth once daily. cyanocobalamin (VITAMIN B-12) 1,000 mcg tab Take 1,000 mcg by mouth once daily. Docusate Sodium 250 mg capsule Take 250 mg by mouth once daily. No current facility-administered medications for this visit. Psychiatric Medication Issues: No change from previous appointment DIAGNOSIS: Depressed Binge Eating Disorder Treatment Modality/Interventions: Cognitive Behavioral TREATMENT ASSESSMENT/PROGRESS: Stable TREATMENT PLAN/GOALS: Continue in therapy focusing on affect management, coping skills and CBT for decreasing depression and binge eating. Next appointment: 2 weeks Ehsan Vasquez PSYD PROGRESS Observed: 10/05/2018 Status: COMPLETED Source: [place] 11:55 AM [facility] [place] REPOSITORY [facility] ID: [id number] Author: Mary (Pt) José Service: (none) Author Type: Physical Therapist Type: Progress Notes Filed: 10/05/2018 6:21 PM Note Text: Episode Visit Count: 4 Therapist That Will Oversee The Plan Of Care: Mary Kumar PT Start of Care Date: 09/16/18 Onset Date: 05/03/18 Patient Identified by Name and Date of : Yes REHABILITATION AND SPORTS THERAPY PHYSICAL THERAPY TREATMENT NOTE ASSESSMENT: Gay Coleman demonstrated improvements in pain after exercise. Patient was able to tolerate addition of 1lb ankle weights to LAQ. The patient will continue to benefit from continued skilled physical therapy for LE strengthening and US for pain reduction. PLAN FOR NEXT VISIT: SUBJECTIVE: Patient states she was doing good until Friday. Friday she began having increased R knee pain. Found US to be helpful. Patient was at pulmonary rehab before coming to PT today. Pain Score: 7/10 Pain Location: Knee - Right Description: Sharp;Aching;Stiffness Frequency: Continuous OBJECTIVE MEASURES WITH LEVEL OF FUNCTION: Leaking seen on the back the middle of shirt due to neck surgery TREATMENT: Therapeutic Exercise: 1: Supine B SLR + Pelvic Tilt +TA x12, 3 sec holds 2: Side lying Hip ABD + TA x12, 3 sec holds, B 3: Prone Hip Ext x15, 3 sec holds, B 4: Side lying Hip ADD + TA x12, 3 sec holds, B 5: Recumbent stepper seat 14, level 1, 5 minutes 6: Seated LAQ x15 with 1 lb ankle weights, 5 sec hold, B 8: Leg press 40lbs 2x12, B 9: Standing TKE with blue band 2x10, B Skilled Intervention: Patient was educated in proper exercise technique and purpose for exercises. Skilled judgment was provided in selection of appropriate interventions. Modalities: Ultrasound Body Region Treated - Ultrasound: Knee Right Patient Position: supine with green bolster under knees Mode: 100% w/cm2: 1.5 MHZ: 1 See flowsheet for details regarding treatment. Skilled Intervention: Proper administration and selection of modality based on clinical presentation, deficits, and needs. Patient response monitored throughout treatment. Billing: [facility]: Therapeutic Exercise ([id number]): 1:1 time: 34 minutes (2 units: 23-37 mins) Modalities Ultrasound ([id number]) 1:1 time: 8 minutes1 unit: 8- 22 mins Total time: 42 minutes Mary Kumar PT CNTHERAPY Observed: 10/05/2018 Status: COMPLETED Source: [place] 11:30 AM [facility] REPOSITORY OT/PT/Speech Visit (PTWS) GAY COLEMAN ([id number]) 1965 F Date Time Provider Department 10/05/18 11:30 AM MARY KUMAR (PT) PTWS Date Time Provider Department Center 10/05/2018 11:30 AM [id number], DIANA (PT)PTWS [facility] Reason for Visit: Physical Therapy [503] Primary Visit Diagnosis:Acute pain of right knee [M25.561] Other Visit Diagnosis:Patellar tendinitis of right knee [M76.51] Allergies As of Date: 10/05/2018 Noted Allergy Reaction DUST 12/26/2006 NABUMETONE 10/04/2014 8 - GI Upset SEASONAL ALLERGIES 06/19/2015 14 - Other: See Comments SMOKE 12/26/2006 THIMERISOL (THIMEROSAL) 01/09/2016 5 - Intolerance Date Reviewed: 09/10/2018 Reviewed by: Canelo Hill - Fully Assessed Prescriptions as of 10/05/2018 Sig: BUPROPION HCL SR 150 MG TABLE* TAKE ONE TABLET BY MOUTH TWIC* LINZESS 290 MCG CAPSULE TAKE 1 CAPSULE BY MOUTH ONCE * BUDESONIDE-FORMOTEROL HFA 80 * Inhale 2 Puffs as instructed * ALBUTEROL SULFATE 2.5 MG/3 ML* Use 3 mL via nebulizer every * TOPIRAMATE 25 MG TABLET Take 1 tablet by mouth twice * FLUOXETINE 40 MG CAPSULE TAKE ONE CAPSULE BY MOUTH ONC* MYRBETRIQ 25 MG TABLET,EXTEND* TAKE ONE TABLET BY MOUTH ONCE* METOPROLOL TARTRATE 25 MG TAB* Take 25 mg by mouth twice sudhakar* MIRTAZAPINE 30 MG TABLET Take 30 mg by mouth daily at * GUSELKUMAB 100 MG/ML SUBCUTAN* Inject subcutaneously. NALTREXONE 8 MG-BUPROPION 90 * Take 1 tablet by mouth as dir* CLOBETASOL 0.05 % TOPICAL CRE* Apply to affected area twice * HYDROCODONE 5 MG-ACETAMINOPHE* Take 1 tablet by mouth every * FLUTICASONE 50 MCG/ACTUATION * Use 2 Sprays in each nostril * COMPOUNDED PRESCRIPTION Aqua Therapy DX: E66.01; M5* COMPOUNDED PRESCRIPTION Consult pulmonary rehab CONJUGATED ESTROGENS 0.9 MG T* Take 1 tablet by mouth once d* PREGABALIN 100 MG CAPSULE Take 100 mg by mouth three ti* MECLIZINE 12.5 MG TABLET Take 1-2 tablets by mouth twi* ALBUTEROL SULFATE HFA 90 MCG/* Inhale 2 Puffs as instructed * DICLOFENAC SODIUM 75 MG TABLE* Take 1 tablet by mouth twice * DICLOFENAC 1 % TOPICAL GEL Apply to affected area four * BACLOFEN 10 MG TABLET Take 1 tablet by mouth twice * Patient taking differently: Take 10 mg by mouth three justino* TRANSCUTANEOUS ELECTRICAL NER* 1 Device as needed. COMPOUNDED PRESCRIPTION Order: cock up splints (2) D* CHOLECALCIFEROL (VITAMIN D3) * Take 5,000 Units by mouth onc* CYANOCOBALAMIN (VIT B-12) 1,0* Take 1,000 mcg by mouth once * DOCUSATE SODIUM 250 MG CAPSULE Take 250 mg by mouth once sudhakar* Progress Notes: Mary Kumar PT 10/05/2018 6:21 PM Signed Episode Visit Count: 4 Therapist That Will Oversee The Plan Of Care: Mary Kumar PT Start of Care Date: 09/16/18 Onset Date: 05/03/18 Patient Identified by Name and Date of : Yes REHABILITATION AND SPORTS THERAPY PHYSICAL THERAPY TREATMENT NOTE ASSESSMENT: Gay Coleman demonstrated improvements in pain after exercise. Patient was able to tolerate addition of 1lb ankle weights to LAQ. The patient will continue to benefit from continued skilled physical therapy for LE strengthening and US for pain reduction. PLAN FOR NEXT VISIT: SUBJECTIVE: Patient states she was doing good until Friday. Friday she began having increased R knee pain. Found US to be helpful. Patient was at pulmonary rehab before coming to PT today. Pain Score: 7/10 Pain Location: Knee - Right Description: Sharp;Aching;Stiffness Frequency: Continuous OBJECTIVE MEASURES WITH LEVEL OF FUNCTION: Leaking seen on the back the middle of shirt due to neck surgery TREATMENT: Therapeutic Exercise: 1: Supine B SLR + Pelvic Tilt +TA x12, 3 sec holds 2: Side lying Hip ABD + TA x12, 3 sec holds, B 3: Prone Hip Ext x15, 3 sec holds, B 4: Side lying Hip ADD + TA x12, 3 sec holds, B 5: Recumbent stepper seat 14, level 1, 5 minutes 6: Seated LAQ x15 with 1 lb ankle weights, 5 sec hold, B 8: Leg press 40lbs 2x12, B 9: Standing TKE with blue band 2x10, B Skilled Intervention: Patient was educated in proper exercise technique and purpose for exercises. Skilled judgment was provided in selection of appropriate interventions. Modalities: Ultrasound Body Region Treated - Ultrasound: Knee Right Patient Position: supine with green bolster under knees Mode: 100% w/cm2: 1.5 MHZ: 1 See flowsheet for details regarding treatment. Skilled Intervention: Proper administration and selection of modality based on clinical presentation, deficits, and needs. Patient response monitored throughout treatment. Billing: [facility]: Therapeutic Exercise ([id number]): 1:1 time: 34 minutes (2 units: 23-37 mins) Modalities Ultrasound ([id number]) 1:1 time: 8 minutes1 unit: 8- 22 mins Total time: 42 minutes Mary Kumar PT PROGRESS Observed: 10/04/2018 Status: COMPLETED Source: [place] 8:43 PM [facility] REPOSITORY HNO ID: [id number] Author: Mary Kumar Service: (none) Author Type: Physical Therapist Type: Progress Notes Filed: 10/04/2018 8:45 PM Note Text: Episode Visit Count: 3 Therapist That Will Oversee The Plan Of Care: Mary Kumar PT Start of Care Date: 09/16/18 Onset Date: 05/03/18 Patient Identified by Name and Date of : Yes REHABILITATION AND SPORTS THERAPY PHYSICAL THERAPY TREATMENT NOTE ASSESSMENT: Gay Coleman demonstrated improvements in R knee pain after exercise and US. The patient will continue to benefit from continued skilled physical therapy for R LE strengthening. PLAN FOR NEXT VISIT: Assess delayed response of US SUBJECTIVE: I am in pain today all over. My neck is a 9/10 and is burning. My back is a 9/10, and of course my L ankle is in pain too. Was tired after last session. Pain Score: 7/10 Pain Location: Knee - Right Description: Sharp Frequency: Continuous Post Treatment Pain Score: 5/10 Pain Location: Knee - Right Post Treatment Pain Description: Sharp OBJECTIVE MEASURES WITH LEVEL OF FUNCTION: NT TREATMENT: Therapeutic Exercise: 1: Supine B SLR + Pelvic Tilt +TA x12, 3 sec holds 2: Side lying Hip ABD + TA x12, 3 sec holds, B 4: Side lying Hip ADD + TA x12, 3 sec holds, B 5: Recumbent stepper seat 14, level 1, 5 minutes 6: Seated LAQ x15, 5 sec hold, B 7: Hamstring Curl Machine 30lbs 2x10 each side 8: Leg press 40lbs 2x10, B Skilled Intervention: Patient was educated in proper exercise technique and purpose for exercises. Skilled judgment was provided in selection of appropriate interventions. Modalities: Ultrasound Body Region Treated - Ultrasound: Knee Right (inferior aspect) Patient Position: supine with green bolster under knees Mode: 100% w/cm2: 1.5 MHZ: 1 Minutes: 10 See flowsheet for details regarding treatment. Skilled Intervention: Proper administration and selection of modality based on clinical presentation, deficits, and needs. Patient response monitored throughout treatment. Billing: [facility]: Therapeutic Exercise ([id number]): 1:1 time: 31 minutes (2 units: 23-37 mins) Modalities Ultrasound ([id number]) 1:1 time: 10 minutes1 unit: 8-22 mins Total time: 41 minutes Mary Kumar PT PROGRESS Observed: 10/04/2018 Status: COMPLETED Source: [place] 8:37 PM [facility] REPOSITORY HNO ID: [id number] Author: Mary (Aron) José Service: (none) Author Type: Physical Therapist Type: Progress Notes Filed: 10/04/2018 8:39 PM Note Text: Episode Visit Count: 2 Therapist That Will Oversee The Plan Of Care: Mary Kumar PT Start of Care Date: 09/16/18 Onset Date: 05/03/18 Patient Identified by Name and Date of : Yes REHABILITATION AND SPORTS THERAPY PHYSICAL THERAPY TREATMENT NOTE ASSESSMENT: Gay Coleman demonstrated improvements in R knee pain at the end of today's session. Will try US at next session The patient will continue to benefit from continued skilled physical therapy for ther ex and US. PLAN FOR NEXT VISIT: warm up on bike, review exercises, Con't with leg and hip strengthening. Ultrasound of knee: 100%, 1MHz, 1.5 w/cm2 at inferior aspect of knee SUBJECTIVE: Lost her exercises she was given at last PT visit. Had surgery but in a lot of pain in neck, back, hip, and knee. Feels off right now as took medication and feels a little foggy. Went and had an appointment with Dr. Gold before today. Went to see a spine doctor who focused on her lumbar spine. Pain Score: 7/10 Pain Location: Knee - Right Description: Aching;Sharp Frequency: Continuous Post Treatment Pain Score: 5/10 Pain Location: Knee - Right Post Treatment Pain Description: Aching;Sharp OBJECTIVE MEASURES WITH LEVEL OF FUNCTION: Normal gait entering and leaving PT session TREATMENT: Therapeutic Exercise: 1: Supine B SLR + Pelvic Tilt +TA x10, 3 sec holds 2: Side lying Hip ABD + TA x10, 3 sec holds, B 3: Prone Hip Ext x15, 3 sec holds, B 4: Side lying Hip ADD + TA x10, 3 sec holds, B 5: Recumbent stepper seat 14, level 1, 5 minutes 6: *Seated LAQ x15, 5 sec hold, B 7: Hamstring Curl Machine 30lbs 2x10 each side 8: Leg press 40lbs 2x10, B Skilled Intervention: Patient was educated in proper exercise technique and purpose for exercises. Reviewed and educated patient on additions/changes for home exercise program as above (*) Skilled judgment was provided in selection of appropriate interventions. Provided written instruction for home exercise program to facilitate proper performance and compliance. Correct performance of therapeutic exercises was facilitated with verbal and visual cuing. Re-issued exercises for HEP Billing: [facility]: Therapeutic Exercise ([id number]): 1:1 time: 44 minutes (3 units: 38-52 mins) Total time: 44 minutes Mary Kumar PT CNTHERAPY Observed: 10/02/2018 Status: COMPLETED Source: [place] 1:15 PM [facility] [place] REPOSITORY OT/PT/Speech Visit (PTWS) GAY COLEMAN ([id number]) 1965 F Date Time Provider Department 10/02/18 1:15 PM MARY KUMAR (PT) PTWS Date Time Provider Department Center 10/02/2018 1:15 PM [id number], DIANA (PT)PTWS [facility] Reason for Visit: Physical Therapy [503] Primary Visit Diagnosis:Acute pain of right knee [M25.561] Other Visit Diagnosis:Patellar tendinitis of right knee [M76.51] Allergies As of Date: 10/02/2018 Noted Allergy Reaction DUST 12/26/2006 NABUMETONE 10/04/2014 8 - GI Upset SEASONAL ALLERGIES 06/19/2015 14 - Other: See Comments SMOKE 12/26/2006 THIMERISOL (THIMEROSAL) 01/09/2016 5 - Intolerance Date Reviewed: 09/10/2018 Reviewed by: Canelo Hill - Fully Assessed Prescriptions as of 10/02/2018 Sig: BUPROPION HCL SR 150 MG TABLE* TAKE ONE TABLET BY MOUTH TWIC* LINZESS 290 MCG CAPSULE TAKE 1 CAPSULE BY MOUTH ONCE * BUDESONIDE-FORMOTEROL HFA 80 * Inhale 2 Puffs as instructed * ALBUTEROL SULFATE 2.5 MG/3 ML* Use 3 mL via nebulizer every * TOPIRAMATE 25 MG TABLET Take 1 tablet by mouth twice * FLUOXETINE 40 MG CAPSULE TAKE ONE CAPSULE BY MOUTH ONC* MYRBETRIQ 25 MG TABLET,EXTEND* TAKE ONE TABLET BY MOUTH ONCE* METOPROLOL TARTRATE 25 MG TAB* Take 25 mg by mouth twice sudhakar* MIRTAZAPINE 30 MG TABLET Take 30 mg by mouth daily at * GUSELKUMAB 100 MG/ML SUBCUTAN* Inject subcutaneously. NALTREXONE 8 MG-BUPROPION 90 * Take 1 tablet by mouth as dir* CLOBETASOL 0.05 % TOPICAL CRE* Apply to affected area twice * HYDROCODONE 5 MG-ACETAMINOPHE* Take 1 tablet by mouth every * FLUTICASONE 50 MCG/ACTUATION * Use 2 Sprays in each nostril * COMPOUNDED PRESCRIPTION Aqua Therapy DX: E66.01; M5* COMPOUNDED PRESCRIPTION Consult pulmonary rehab CONJUGATED ESTROGENS 0.9 MG T* Take 1 tablet by mouth once d* PREGABALIN 100 MG CAPSULE Take 100 mg by mouth three ti* MECLIZINE 12.5 MG TABLET Take 1-2 tablets by mouth twi* ALBUTEROL SULFATE HFA 90 MCG/* Inhale 2 Puffs as instructed * DICLOFENAC SODIUM 75 MG TABLE* Take 1 tablet by mouth twice * DICLOFENAC 1 % TOPICAL GEL Apply to affected area four * BACLOFEN 10 MG TABLET Take 1 tablet by mouth twice * Patient taking differently: Take 10 mg by mouth three justino* TRANSCUTANEOUS ELECTRICAL NER* 1 Device as needed. COMPOUNDED PRESCRIPTION Order: cock up splints (2) D* CHOLECALCIFEROL (VITAMIN D3) * Take 5,000 Units by mouth onc* CYANOCOBALAMIN (VIT B-12) 1,0* Take 1,000 mcg by mouth once * DOCUSATE SODIUM 250 MG CAPSULE Take 250 mg by mouth once sudhakar* Progress Notes: Mary Kumar PT 10/04/2018 8:45 PM Signed Episode Visit Count: 3 Therapist That Will Oversee The Plan Of Care: Mary Kumar PT Start of Care Date: 09/16/18 Onset Date: 05/03/18 Patient Identified by Name and Date of : Yes REHABILITATION AND SPORTS THERAPY PHYSICAL THERAPY TREATMENT NOTE ASSESSMENT: Gay Coleman demonstrated improvements in R knee pain after exercise and US. The patient will continue to benefit from continued skilled physical therapy for R LE strengthening. PLAN FOR NEXT VISIT: Assess delayed response of US SUBJECTIVE: I am in pain today all over. My neck is a 9/10 and is burning. My back is a 9/10, and of course my L ankle is in pain too. Was tired after last session. Pain Score: 7/10 Pain Location: Knee - Right Description: Sharp Frequency: Continuous Post Treatment Pain Score: 5/10 Pain Location: Knee - Right Post Treatment Pain Description: Sharp OBJECTIVE MEASURES WITH LEVEL OF FUNCTION: NT TREATMENT: Therapeutic Exercise: 1: Supine B SLR + Pelvic Tilt +TA x12, 3 sec holds 2: Side lying Hip ABD + TA x12, 3 sec holds, B 4: Side lying Hip ADD + TA x12, 3 sec holds, B 5: Recumbent stepper seat 14, level 1, 5 minutes 6: Seated LAQ x15, 5 sec hold, B 7: Hamstring Curl Machine 30lbs 2x10 each side 8: Leg press 40lbs 2x10, B Skilled Intervention: Patient was educated in proper exercise technique and purpose for exercises. Skilled judgment was provided in selection of appropriate interventions. Modalities: Ultrasound Body Region Treated - Ultrasound: Knee Right (inferior aspect) Patient Position: supine with green bolster under knees Mode: 100% w/cm2: 1.5 MHZ: 1 Minutes: 10 See flowsheet for details regarding treatment. Skilled Intervention: Proper administration and selection of modality based on clinical presentation, deficits, and needs. Patient response monitored throughout treatment. Billing: [facility]: Therapeutic Exercise (71451): 1:1 time: 31 minutes (2 units: 23-37 mins) Modalities Ultrasound (58657) 1:1 time: 10 minutes1 unit: 8-22 mins Total time: 41 minutes Mary Kumar PT PROGRESS Observed: 10/02/2018 Status: COMPLETED Source: [place] 12:57 PM [facility] REPOSITORY HNO ID: [id number] Author: Ehsan Sterling Service: (none) Author Type: Psychologist Type: Progress Notes Filed: 10/07/2018 1:21 PM Note Text: [facility] Progress Note Gay Coleman 10/01/2018 [id number] Provider: Ehsan Vasquez PSYD CPT Code: 46265 Psychotherapy 38-52 minutes Time: Approximately 45 minutes was spent in therapy. Parties Present: Patient Patient Presentation/Concerns: Queenie was a little late as she came from [employer]. Queenie spoke about her sadness during the holidays/. She stated that she had lost some weight during her recovery from the surgery. Mental Status: Mood: neutral Affect: mood-congruent Thoughts/Associations:goal directed Suicidal/Homicidal Ideation: None expressed or evidenced Other Observations: Therapy Focus Mood/affect regulation MEDICATIONS: Per medical record: Current Outpatient Prescriptions: buPROPion SR (ZYBAN SR; WELLBUTRIN SR) 150 mg 12 hr tablet TAKE ONE TABLET BY MOUTH TWICE DAILY LINZESS 290 mcg cap TAKE 1 CAPSULE BY MOUTH ONCE DAILY budesonide-formoterol (SYMBICORT) 80-4.5 mcg/actuation inhaler Inhale 2 Puffs as instructed twice daily. albuterol (PROVENTIL) 2.5 mg /3 mL (0.083 %) nebulizer solution Use 3 mL via nebulizer every 4 hours as needed for Wheezing/Shortness of Breath. Use over 5-15minutes. topiramate (TOPAMAX) 25 mg tablet Take 1 tablet by mouth twice daily. FLUoxetine HCl (PROZAC) 40 mg capsule TAKE ONE CAPSULE BY MOUTH ONCE DAILY MYRBETRIQ 25 mg Tb24 TAKE ONE TABLET BY MOUTH ONCE DAILY metoprolol tartrate, short acting, (LOPRESSOR) 25 mg tablet Take 25 mg by mouth twice daily. mirtazapine (REMERON) 30 mg tablet Take 30 mg by mouth daily at bedtime. guselkumab (TREMFYA) 100 mg/mL syrg Inject subcutaneously. naltrexone-bupropion (CONTRAVE) 8-90 mg TbER Take 1 tablet by mouth as directed. 2 tablets PO bid clobetasol (TEMOVATE) 0.05 % cream Apply to affected area twice daily. HYDROcodone-acetaminophen (NORCO) 5-325 mg per tablet Take 1 tablet by mouth every 6 hours as needed for Pain. For post op pain per Dr. Velasquez Fill Date: 05/26/18 fluticasone (FLONASE) 50 mcg/actuation nasal spray Use 2 Sprays in each nostril once daily. Rinse mouth after use. COMPOUNDED PRESCRIPTION Aqua Therapy DX: E66.01; M50.30; M51.36 COMPOUNDED PRESCRIPTION Consult pulmonary rehab estrogens conjugated (PREMARIN) 0.9 mg tablet Take 1 tablet by mouth once daily. pregabalin (LYRICA) 100 mg capsule Take 100 mg by mouth three times daily. meclizine (ANTIVERT) 12.5 mg tab Take 1-2 tablets by mouth twice daily as needed (dizziness). albuterol HFA (VENTOLIN HFA) 90 mcg/actuation inhaler Inhale 2 Puffs as instructed every 4 hours as needed for Wheezing/Shortness of Breath. diclofenac, EC, (VOLTAREN) 75 mg EC tablet Take 1 tablet by mouth twice daily. For pain/inflammation. Take with food. PER DR. MALONE diclofenac sodium (VOLTAREN) 1 % topical gel Apply to affected area four times daily. PER DR. MALONE baclofen (LIORESAL) 10 mg tablet Take 1 tablet by mouth twice daily. (Patient taking differently: Take 10 mg by mouth three times daily.) TENS Units malika 1 Device as needed. COMPOUNDED PRESCRIPTION Order: cock up splints (2)Dx: carpal tunnel syndrome bilateral Cholecalciferol, Vitamin D3, 5,000 unit tab Take 5,000 Units by mouth once daily. cyanocobalamin (VITAMIN B-12) 1,000 mcg tab Take 1,000 mcg by mouth once daily. Docusate Sodium 250 mg capsule Take 250 mg by mouth once daily. No current facility-administered medications for this visit. Psychiatric Medication Issues: No change from previous appointment DIAGNOSIS: Depression, recurrent Binge Eating Treatment Modality/Interventions: Cognitive Behavioral TREATMENT ASSESSMENT/PROGRESS: Stable TREATMENT PLAN/GOALS: Continue in therapy focusing on affect management, weight loss, coping skills, Next appointment: 2 weeks Ehsan Vasquez PSYD CNTHERAPY Observed: 10/01/2018 Status: COMPLETED Source: [place] 2:45 PM [facility] REPOSITORY OT/PT/Speech Visit (PTWS) GAY COLEMAN ([id number]) 1965 F Date Time Provider Department 10/01/18 2:45 PM MARY KUMAR (PT) PTWS Date Time Provider Department Center 10/01/2018 2:45 PM [id number], DIANA (PT)PTWS [facility] Reason for Visit: Physical Therapy [503] Primary Visit Diagnosis:Acute pain of right knee [M25.561] Other Visit Diagnosis:Patellar tendinitis of right knee [M76.51] Allergies As of Date: 10/01/2018 Noted Allergy Reaction DUST 12/26/2006 NABUMETONE 10/04/2014 8 - GI Upset SEASONAL ALLERGIES 06/19/2015 14 - Other: See Comments SMOKE 12/26/2006 THIMERISOL (THIMEROSAL) 01/09/2016 5 - Intolerance Date Reviewed: 09/10/2018 Reviewed by: Canelo Hill - Fully Assessed Prescriptions as of 10/01/2018 Sig: BUPROPION HCL SR 150 MG TABLE* TAKE ONE TABLET BY MOUTH TWIC* LINZESS 290 MCG CAPSULE TAKE 1 CAPSULE BY MOUTH ONCE * BUDESONIDE-FORMOTEROL HFA 80 * Inhale 2 Puffs as instructed * ALBUTEROL SULFATE 2.5 MG/3 ML* Use 3 mL via nebulizer every * TOPIRAMATE 25 MG TABLET Take 1 tablet by mouth twice * FLUOXETINE 40 MG CAPSULE TAKE ONE CAPSULE BY MOUTH ONC* MYRBETRIQ 25 MG TABLET,EXTEND* TAKE ONE TABLET BY MOUTH ONCE* METOPROLOL TARTRATE 25 MG TAB* Take 25 mg by mouth twice sudhakar* MIRTAZAPINE 30 MG TABLET Take 30 mg by mouth daily at * GUSELKUMAB 100 MG/ML SUBCUTAN* Inject subcutaneously. NALTREXONE 8 MG-BUPROPION 90 * Take 1 tablet by mouth as dir* CLOBETASOL 0.05 % TOPICAL CRE* Apply to affected area twice * HYDROCODONE 5 MG-ACETAMINOPHE* Take 1 tablet by mouth every * FLUTICASONE 50 MCG/ACTUATION * Use 2 Sprays in each nostril * COMPOUNDED PRESCRIPTION Aqua Therapy DX: E66.01; M5* COMPOUNDED PRESCRIPTION Consult pulmonary rehab CONJUGATED ESTROGENS 0.9 MG T* Take 1 tablet by mouth once d* PREGABALIN 100 MG CAPSULE Take 100 mg by mouth three ti* MECLIZINE 12.5 MG TABLET Take 1-2 tablets by mouth twi* ALBUTEROL SULFATE HFA 90 MCG/* Inhale 2 Puffs as instructed * DICLOFENAC SODIUM 75 MG TABLE* Take 1 tablet by mouth twice * DICLOFENAC 1 % TOPICAL GEL Apply to affected area four * BACLOFEN 10 MG TABLET Take 1 tablet by mouth twice * Patient taking differently: Take 10 mg by mouth three justino* TRANSCUTANEOUS ELECTRICAL NER* 1 Device as needed. COMPOUNDED PRESCRIPTION Order: cock up splints (2) D* CHOLECALCIFEROL (VITAMIN D3) * Take 5,000 Units by mouth onc* CYANOCOBALAMIN (VIT B-12) 1,0* Take 1,000 mcg by mouth once * DOCUSATE SODIUM 250 MG CAPSULE Take 250 mg by mouth once sudhakar* Progress Notes: Mary José, PT 10/04/2018 8:39 PM Signed Episode Visit Count: 2 Therapist That Will Oversee The Plan Of Care: Mary Kumar, PT Start of Care Date: 09/16/18 Onset Date: 05/03/18 Patient Identified by Name and Date of : Yes REHABILITATION AND SPORTS THERAPY PHYSICAL THERAPY TREATMENT NOTE ASSESSMENT: Gay Coleman demonstrated improvements in R knee pain at the end of today's session. Will try US at next session The patient will continue to benefit from continued skilled physical therapy for ther ex and US. PLAN FOR NEXT VISIT: warm up on bike, review exercises, Con't with leg and hip strengthening. Ultrasound of knee: 100%, 1MHz, 1.5 w/cm2 at inferior aspect of knee SUBJECTIVE: Lost her exercises she was given at last PT visit. Had surgery but in a lot of pain in neck, back, hip, and knee. Feels off right now as took medication and feels a little foggy. Went and had an appointment with Dr. Gold before today. Went to see a spine doctor who focused on her lumbar spine. Pain Score: 7/10 Pain Location: Knee - Right Description: Aching;Sharp Frequency: Continuous Post Treatment Pain Score: 5/10 Pain Location: Knee - Right Post Treatment Pain Description: Aching;Sharp OBJECTIVE MEASURES WITH LEVEL OF FUNCTION: Normal gait entering and leaving PT session TREATMENT: Therapeutic Exercise: 1: Supine B SLR + Pelvic Tilt +TA x10, 3 sec holds 2: Side lying Hip ABD + TA x10, 3 sec holds, B 3: Prone Hip Ext x15, 3 sec holds, B 4: Side lying Hip ADD + TA x10, 3 sec holds, B 5: Recumbent stepper seat 14, level 1, 5 minutes 6: *Seated LAQ x15, 5 sec hold, B 7: Hamstring Curl Machine 30lbs 2x10 each side 8: Leg press 40lbs 2x10, B Skilled Intervention: Patient was educated in proper exercise technique and purpose for exercises. Reviewed and educated patient on additions/changes for home exercise program as above (*) Skilled judgment was provided in selection of appropriate interventions. Provided written instruction for home exercise program to facilitate proper performance and compliance. Correct performance of therapeutic exercises was facilitated with verbal and visual cuing. Re-issued exercises for HEP Billing: [facility]: Therapeutic Exercise (43600): 1:1 time: 44 minutes (3 units: 38-52 mins) Total time: 44 minutes Mary Kumar PT PROGRESS Observed: 10/01/2018 Status: COMPLETED Source: [place] 1:03 PM [facility] REPOSITORY HNO ID: [id number] Author: Ehsan Sterling Service: (none) Author Type: Psychologist Type: Progress Notes Filed: 10/02/2018 9:38 AM Note Text: [facility] Progress Note Gay Castro Sudhakarhoracio 09/10/2018 [id number] Provider: Ehsan Vasquez PSYD CPT Code: 07860 Psychotherapy 38-52 minutes Time: Approximately 45 minutes was spent in therapy. Parties Present: Patient Patient Presentation/Concerns: Queenie spoke about her surgery approaching. She stated wanting others to reach out to her during that time/express care. We discussed setting her expectations in a realistic place. Queenie also spoke about the upcoming holiday. She stated knowing that it would trigger a lot of feelings for her/sadness regarding her family. Mental Status: Mood: depressed, sad Affect: mood-congruent Thoughts/Associations:goal directed Suicidal/Homicidal Ideation: None expressed or evidenced Other Observations: None Therapy Focus Mood/affect regulation MEDICATIONS: Per medical record: Current Outpatient Prescriptions: buPROPion SR (ZYBAN SR; WELLBUTRIN SR) 150 mg 12 hr tablet TAKE ONE TABLET BY MOUTH TWICE DAILY LINZESS 290 mcg cap TAKE 1 CAPSULE BY MOUTH ONCE DAILY budesonide-formoterol (SYMBICORT) 80-4.5 mcg/actuation inhaler Inhale 2 Puffs as instructed twice daily. albuterol (PROVENTIL) 2.5 mg /3 mL (0.083 %) nebulizer solution Use 3 mL via nebulizer every 4 hours as needed for Wheezing/Shortness of Breath. Use over 5-15minutes. topiramate (TOPAMAX) 25 mg tablet Take 1 tablet by mouth twice daily. FLUoxetine HCl (PROZAC) 40 mg capsule TAKE ONE CAPSULE BY MOUTH ONCE DAILY MYRBETRIQ 25 mg Tb24 TAKE ONE TABLET BY MOUTH ONCE DAILY metoprolol tartrate, short acting, (LOPRESSOR) 25 mg tablet Take 25 mg by mouth twice daily. mirtazapine (REMERON) 30 mg tablet Take 30 mg by mouth daily at bedtime. guselkumab (TREMFYA) 100 mg/mL syrg Inject subcutaneously. naltrexone-bupropion (CONTRAVE) 8-90 mg TbER Take 1 tablet by mouth as directed. 2 tablets PO bid clobetasol (TEMOVATE) 0.05 % cream Apply to affected area twice daily. HYDROcodone-acetaminophen (NORCO) 5-325 mg per tablet Take 1 tablet by mouth every 6 hours as needed for Pain. For post op pain per Dr. Velasquez Fill Date: 05/26/18 fluticasone (FLONASE) 50 mcg/actuation nasal spray Use 2 Sprays in each nostril once daily. Rinse mouth after use. COMPOUNDED PRESCRIPTION Aqua Therapy DX: E66.01; M50.30; M51.36 COMPOUNDED PRESCRIPTION Consult pulmonary rehab estrogens conjugated (PREMARIN) 0.9 mg tablet Take 1 tablet by mouth once daily. pregabalin (LYRICA) 100 mg capsule Take 100 mg by mouth three times daily. meclizine (ANTIVERT) 12.5 mg tab Take 1-2 tablets by mouth twice daily as needed (dizziness). albuterol HFA (VENTOLIN HFA) 90 mcg/actuation inhaler Inhale 2 Puffs as instructed every 4 hours as needed for Wheezing/Shortness of Breath. diclofenac, EC, (VOLTAREN) 75 mg EC tablet Take 1 tablet by mouth twice daily. For pain/inflammation. Take with food. PER DR. MALONE diclofenac sodium (VOLTAREN) 1 % topical gel Apply to affected area four times daily. PER DR. MALONE baclofen (LIORESAL) 10 mg tablet Take 1 tablet by mouth twice daily. (Patient taking differently: Take 10 mg by mouth three times daily.) TENS Units malika 1 Device as needed. COMPOUNDED PRESCRIPTION Order: cock up splints (2)Dx: carpal tunnel syndrome bilateral Cholecalciferol, Vitamin D3, 5,000 unit tab Take 5,000 Units by mouth once daily. cyanocobalamin (VITAMIN B-12) 1,000 mcg tab Take 1,000 mcg by mouth once daily. Docusate Sodium 250 mg capsule Take 250 mg by mouth once daily. No current facility-administered medications for this visit. Psychiatric Medication Issues: No change from previous appointment DIAGNOSIS: Depression, recurrent Binge Eating Treatment Modality/Interventions: Cognitive Behavioral TREATMENT ASSESSMENT/PROGRESS: Queenie indicated going to [employer]. Her weight has fluctuated over the past few weeks. TREATMENT PLAN/GOALS: Continue in therapy focusing on healthy coping, CBT for depressive thinking. Next appointment: 1 week Ehsan Vasquez PSYD L/S SPINE MIN 4 Observed: 09/29/2018 Status: F Source: [place] VIEWS 2:16 PM [facility] REPOSITORY [facility] Imaging Services [address] [place] [address] [place] [address] L/S Spine Min 4 Views MR#: [id number] Acct: [id number] Name: GAY COLEMAN Rep #: [id number] : 1965 F 52 From: Juana Mas MD PCP: Everton Cash DO Status: REG CLI Study: L/S Spine Min 4 Views Date of Exam: 09/29/18 Exam# [id number] Ordering Dr: Mary Bullard MD STUDY: X-RAY - LUMBAR SPINE REASON FOR EXAM: Female, 52 years old. Neck pain TECHNIQUE: 4 weightbearing view(s) of the lumbar spine were obtained. With flexion and extension COMPARISON: None FINDINGS: Normal lumbar lordosis. There is no substantial scoliosis. There is a normal alignment of the vertebrae. There is no abnormal motion. Normal vertebral bodies and endplates. Mild disc space narrowing L5-S1. Facet sclerosis and arthropathy involving the L3-L4, L4-5, L5-S1 level. The soft tissue structures are unremarkable. RAD/L/S Spine Min 4 Views IMPRESSION: Facet arthropathy. No abnormal motion. 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, BS PCP: Everton Cash DO Exercise - 60-Day Assessment - Current Level Mode:: Treadmill, Airdyne, NuStep, Arm Ergometer Frequency (x/week): 3 Duration:: 35 Aerobic Exercise [30-60 min 3-7x/week]:: Met Target heart rate: 116-125 Thomas-13 MET Level:: 2.5 - Home Exercise Home Exercise:: No Disease Management - 60-Day - Medications Medication list reviewed:: Yes Taking medications 100% of the time:: Met Medication reassessment: Yes Pt demonstrates correct technique timing for MDI, Yes Pt demonstrates correct technique timing for DPI, Yes Pt demonstrates correct technique timing for NEB, Yes Pt demonstrates correct technique timing for spacer - returned demonstration proper use of spacer and MDI - Bronchial Hygiene Bronchial Hygiene Plan: Yes Pt demonstrates correctly for effective cough - performed gates cough technique, Yes Pt demo correct for device - return demonstration PEP therapy device, Yes Pt demo correct for improved hydration, Yes Pt demo correct for hand hygiene, Yes Pt demo correct for verbalize when to call MD Psychosocial - 60-Day - Assessment Depression reassess: Management of stress: Progressing, Management of depression: Progressing, Practicing interventions: Progressing Tobacco - 60-Day Assessment - Program Goals Tobacco Program Goals: Complete smoking cessation. Attend education classes. Improve Knowledge Test score - Stage of Change Stages of Change:: Action - Learning Barriers Learning Barriers: Participates in education - Family Support Do you have family support?: Yes - Tobacco Use Tobacco Use: Non-smoker Do you use smokeless tobacco?: No - Intervention Smoking Cessation Referral:: No Education Schedule Given:: Yes - Education Gave Education Materials For:: Pulmonary Disease, Risk Factors, Breathing Techniques, Medical Compliance, Pulmonary A AND P, Exacerbation Signs AND Symptoms, Stress AND Relaxation Nutrition/Wt Mgmt - 60-Day - Weight Management Weight Assessment:: Wt loss 1-2 lbs per week, Wt stable Weight:: 243 lb 8 oz Weight Goals Progress:: Not progressing Patient Health Questionnaire 60-Day Re-eval Assessment 1. Little interest or pleasure in doing things: More than half the days 2. Feeling down, depressed, or hopeless: Nearly every day 3. Trouble falling or staying asleep, or sleeping too much: More than half the days 4. Feeling tired or having little energy: More than half the days 5. Poor appetite or overeating: Nearly every day 6. Feeling bad about yourself -- or that you are a failure or have let yourself or your family down: Several days 7. Trouble concentrating on things, such as reading the newspaper or watching television: More than half the days 8. Moving or speaking so slowly that other people could have noticed. Or the opposite - being so fidgety or restless that you have been moving around a lot more than usual: Not at all 9. Thoughts that you would be better off , or of hurting yourself in some way: Not at all - Pat[place] is being treated for chronic depression How difficult have these problems made it for you to do your work, take care of things at home, or get along with other people?: Somewhat difficult Total Score: 15 Self-Efficacy 60-Day Re-eval Assessment We would like to know how confident you are in doing certain activities. Please select your confidence level for:: Select your confidence level for the following using the scale 1-10 where 1 is not at all confident and 10 is totally confident. Your score is the average of all 6 responses. Fatigue: How confident are you that you can keep the fatigue caused by your disease from interfering with the things you want to do? Select Number: 8 Physical Discomfort or Pain: How confident are you that you can keep the physical discomfort or pain of your disease from interfering with the things you want to do? Select Number: 9 Emotional Distress: How confident are you that you can keep the emotional distress caused by your disease from interfering with the things you want to do? Select Number: 10 Other Symptoms or Health Problems: How confident are you that you can keep other symptoms or health problems from interfering with the things you want to do? Select Number: 9 Different Tasks and Activities: How confident are you that you can do the different tasks and activities needed to manage your health condition so as to reduce your need to see a doctor? Select Number: 8 Medication: How confident are you that you can do things other than just taking medication to reduce how much your illness affects your everyday life? Select Number: 10 Total Score:: 9 09/23/18 1451 <Electronically signed by Arturo Soler CRT, RIGO, MARIO> Date Arturo Soler CRT, RIGO, MARIO Outcome assessment reviewed. Exercise plan approved as documented. Treatment plan and goals support patient needs/abilities. Continue with current plan. I certify the patient demonstrates improvement and remains willing and capable of participation. the patient continues to benefit from pulmonary services/training. The patient may continue at current intensity, endurance and modality and progress per protocol. 09/28/181809<Electronically signed by Inocente Curtis MD> [facility] Signature: Date Inocente Curtis MD CC: Signed PLASTIC SURGERY Observed: 09/26/2018 Status: F Source: [place] VISIT REPORT 4:20 PM [facility] REPOSITORY [facility] [address] [facility] [address] [place] [address] OFFICE VISIT Date of Service: 09/21/18 MR#: [id number] Acct: [id number] Name: GAY COLEMAN Rep #: [id number] : 1965 Provider: Bonilla Alvarez MD Age/Sex: 52/F Location: [facility] Status: Signed Intake Vital Signs09/21/18 Body Mass Index (BMI) 38.2 09/21/18 Blood Pressure 132/85 H 09/21/18 Blood Pressure Location Lt brachial 09/21/18 Blood Pressure Position Sitting 09/21/18 Respiratory Rate 16 Intake Visit Reasons: postop surgery 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/18 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 Accompanied by: None Is patient in pain?: Yes (RIGHT SIDE PAIN SCRAPING AND BURNING PAIN AND NECK PAIN DULL ) Pain scale (1-10): 7 Allergies nabumetone Allergy (Verified 09/21/18 15:52) Hives thimerosal Allergy (Verified 09/21/18 15:52) Other naproxen [From Naprosyn] Adverse Reaction (Verified 09/21/18 15:52) Other oxycodone HCl [From Percocet] Adverse Reaction (Verified 09/21/18 15:52) Other birds Allergy (Uncoded 09/21/18 15:52) Other molds Allergy (Uncoded 09/21/18 15:52) Other seasonal Allergy (Uncoded 09/21/18 15:52) Other Medications Albuterol Aerosols [Ventolin Aerosols] 2.5 mg INHALATION Q6H PRN PRN 09/22/17 [History Confirmed 09/17/18] Albuterol Inhaler [Ventolin Hfa] 2 puff INHALATION Q4H PRN PRN 09/22/17 [History Confirmed 09/17/18] Baclofen [Lioresal] 10 mg PO TID 09/22/17 [History Confirmed 09/17/18] Calcium Carbonate/Vitamin D3 [Calcium 500-Vit D3 200 Tablet] 1 ea PO DAILY 09/22/17 [History Confirmed 09/17/18] Diclofenac Sodium 100 gm TP 4X/DAY 09/22/17 [History Confirmed 09/17/18] Diclofenac [Voltaren] 75 mg PO BIDCM 09/22/17 [History Confirmed 09/17/18] Econazole [Spectazole] 1 applic TOPICAL DAILY 09/22/17 [History Confirmed 09/17/18] Estrogens, Conjugated [Premarin] 0.9 mg PO DAILY 09/22/17 [History Confirmed 09/17/18] Fluoxetine [Prozac] 40 mg PO DAILY 09/22/17 [History Confirmed 09/17/18] Linaclotide [Linzess] 290 mcg PO DAILY 09/22/17 [History Confirmed 09/17/18] Mirabegron [Myrbetriq] 25 mg PO DAILY 09/22/17 [History Confirmed 09/17/18] Mirtazapine [Remeron] 22 mg PO QHS 09/22/17 [History Confirmed 09/17/18] Pregabalin [Lyrica] 100 mg PO TID 09/22/17 [History Confirmed 09/17/18] Pyridoxine HCl [Vitamin B-6] 100 mg PO DAILY 09/22/17 [History Confirmed 09/17/18] buPROPion SR [Wellbutrin SR (150mg tablets)] 150 mg PO BID 09/22/17 [History Confirmed 09/17/18] Fluticasone/Salmeterol [Advair 250/50 Mcg Diskus] 1 puff INHALATION BID 11/26/17 [History Confirmed 09/17/18] Docusate Sodium [Colace] 100 mg PO BID cap 11/29/17 [Rx Confirmed 09/17/18] Lactobacillus Combo No.11 [Probiotic] 1 ea PO DAILY #60 cap.sprink 11/29/17 [Rx Confirmed 09/17/18] Cholecalciferol (Vitamin D3) [Vitamin D3] 1,000 unit PO DAILY 03/18/18 [History Confirmed 09/17/18] Cyanocobalamin [Vitamin B12] 500 mcg PO DAILY@0800 03/18/18 [History Confirmed 09/17/18] guselkumab 100 mg/mL subcutaneous syringe 100 mg SC Q8W 07/23/18 [History Confirmed 09/17/18] Fluticasone Furoate [Arnuity Ellipta] 50 mcg IH PRN PRN 09/10/18 [History Confirmed 09/17/18] Topiramate [Topamax] 25 mg PO BID 09/10/18 [History Confirmed 09/17/18] levoFLOXacin tablet [Levaquin tablet] 500 mg PO DAILY #14 tab 09/17/18 [Rx] PFSH Medical History Lipoma of back (Chronic) Postoperative seroma of subcutaneous tissue after dermatologic procedure (Acute) Arthritis (Acute) Asthma (Acute) BREAST LUMP OR CYST (Acute) Bloating (Acute) Carpal tunnel syndrome (Acute) Cataract (Acute) Depression (Acute) GASTROINTESTIONAL PROBLEMS (Acute) Hearing problem (Acute) History of migraine headaches (Acute) Hives (Acute) IBS (irritable bowel syndrome) (Acute) LIPOMA UPPER BACK/POSTERIOR NECK (Acute) Leg weakness (Acute) Mass in neck (Acute) OAB (overactive bladder) (Acute) Osteoarthritis (Acute) Pneumonia (Acute) Polycystic ovary (Acute) Psoriasis (Acute) Recurrent infections (Acute) SPINAL STENOSIS - MULTIPLE BACK ISSUES (Acute) Seasonal allergies (Acute) Vision problems (Acute) Surgical History ADENOIDS AND TONSILS 1974 (Acute) CATARACT L AND R, TORIC LENS REPLACEMENT 2016 (Acute) COMPLETE HYSTERECTOMY WITH BSO 2015 (Acute) Deviated septum (Acute) EXCISION 8 CM PAINFUL SOFT TISSUE MASS (Acute) H/O bilateral breast reduction surgery (Acute 2013) RADIOFRQUENSY ABLATION 2017 (Acute) Family History Father Hypertension Mother Arthritis Hypertension Cancer Brother Alcohol abuse Aunt Diabetes Grandfather Alcohol abuse Grandfather Psychiatric care Cancer CVA (cerebral vascular accident) Grandmother Alcohol abuse Grandmother Arthritis Depression Other Family history of basal cell carcinoma Family history of skin cancer Social History Smoking Status: Never smoker alcohol intake: never substance use type: does not use what type of physical activity do you participate in: walking, swimming seatbelt use: always do you feel safe at home: Yes additional social history: SUN EXPOSURE: FREQUENTLY HPI postop surgery 09/17/18: Details: Postop visit from her recent surgery on 09/17/18 where she underwent surgical preparation upper back with excisional debridement painful infected hematoma scar contour deformity and STSG reconstruction from right superior gluteal area (20 cm2) and placement of BHUMIKA NPWT device. Comes in today with mild discomfort in her skin graft area. The BHUMIKA NPWT device was removed today without difficulty. The top of the drape was a little loose. The skin graft shows 100% take and good adherence. Some moisture is present on the graft probably from the loose drape. Will apply Silver dressing daily to help absorb the moisture. Once the moisture has decreased, may apply antibiotic ointment to the skin graft daily. May also alternate between the the Silver and the antibiotic ointment. Donor incision right superior gluteal area is dry and intact. Pathology was discussed with the patient. It showed focal dense fibrosis and chronic inflammation and foreign body giant cell reaction. Operative culture was discussed with the patient. It was negative. Followup one week. Will remove the drain at that time. Assessment AND Plan Problems 1. Late effect of certain other external causes T75.89XS 2. Contusion of unspecified back wall of thorax, sequela S20.229S 3. Family history of skin cancer Z80.8 Coding Level of Care Code Global Post Op Diagnoses Late effect of certain other external causes T75.89XS Contusion of unspecified back wall of thorax, sequela S20.229S Family history of skin cancer Z80.8 09/26/18 1620 <Electronically signed by Bonilla Alvarez MD> Date Bonilla Alvarez MD Cosigner Signature: Date (if applicable) CC: OPERATIVE REPORT Observed: 09/24/2018 Status: F Source: [place] 1:13 PM [facility] REPOSITORY [facility] Medical Records Department [address] [place] [id number] Operative Report 09/17/18 1813 MR#: [id number] Acct: [id number] Name: GAY COLEMAN Rep #: [id number] : 1965 52 From: Bonilla Alvarez MD PCP: Everton Cash DO Status: [facility] [place] [facility] [place] Report of Operation Date of Procedure: 09/17/18 Pre-Operative Diagnosis: 1. Painful infected hematoma scar contour deformity upper back. 2. Late effect infected hematoma upper back. 3. Family history of skin cancer. 4. History of MRSE. Post-Operative Diagnosis: Same. Surgery/Procedure Performed:: Surgical preparation upper back with excisional debridement painful infected hematoma scar contour deformity and STSG reconstruction from right superior gluteal area (20 cm2) and placement of BHUMIKA NPWT device. Description of Surgical Findings:: 52 year old woman presents with complaints of a painful scar contour deformity in her upper back. She initially had excision of a lipoma in 09/19. She developed an infected hematoma which necessitated further surgery on 11/27/17 where she underwent surgical preparation upper back/posterior neck with incision and drainage and excisional debridement infected hematoma (66 cm2). Culture showed MRSE that was resistant to Tetracycline. She was placed on Levaquin and finished them. The wound was left open and allowed to heal with wound care and antibiotics and increased nutrition. The wound healed on 03/31/18. Patient was informed of the risks and complications of the procedure including alternatives to surgery. These were discussed with the patient personally. Patient voices understanding and wishes to proceed. Some of the risks and complications were included in a form from the [employer]. Size of skin graft upper back - 4 x 5 cm. I used Zhanna absorbable hemostat. Reference Number - [id number]. Lot Number - [id number]. Expiration - October 30, 2022. renal nurse: Adrienne Canales. Type of Anesthesia:: General Specimen's removed: Painful infected hematoma scar contour deformity to Pathology and Microbiology. Drains: Mindy. Estimated Blood Loss (mL): 25 ml. Description of Procedure: Patient was taken to OR in supine position and was placed under general anesthesia. She was then placed in the prone position. The upper back and gluteal areas prepped and draped in the usual fashion. SCD's were placed for DVT prophylaxis. Perioperative antibiotics were given intravenously. Using xylocaine with epinephrine, the upper back scar contour deformity was infiltrated. After waiting 5 minutes for the anesthetic to take effect, the painful infected hematoma scar contour deformity upper back was excised down to the muscular fascia. There was a lot of dense scar tissue adherent to the underlying muscle. Some of the tissue was sent to Pathology for analysis to rule out carcinoma. Some of the tissue was sent to Microbiology for culture. A positive culture will necessitate antibiotic therapy. I then cinched down the skin edges to the underlying muscle to minimize having to place skin graft on the subcutaneous sides of the wound. I used 2-0 Vicryl interrupted sutures. The size of the defect for the skin graft was 4 x 5 cm. I then infiltrated the right superior gluteal area where the skin graft will be harvested. I then made a horizontal elliptical excision into the subcutaneous tissue. I removed the subcutaneous tissue and some of the deeper dermis thus fashioning a thick split thickness skin graft. Using a 15 blade and placing the skin graft on stretch, I meshed the skin graft. The skin graft was placed in saline. I further excised some of the subcutaneous tissue in the wound to aid in wound closure. Hemostasis was obtained with electrocautery. I sprayed Zhanna absorbable hemostat into the wound to minimize seroma formation. I placed a size 15 Mindy drain through a separate stab incision laterally and secured to the skin with 3-0 Nylon suture. I then closed the donor wound in the right superior gluteal area with 2-0 Vicryl figure of eight interrupted sutures for the underlying Rhianna's fascia. The deep dermis and subcutaneous tissue was approximated with 3-0 Monocryl interrupted sutures. The skin was approximated with 3-0 V lock unidirectional barbed running subcuticular suture. Antibiotic ointment was applied to the incision followed by a Kerlix gauze dressing. I then placed the thick split thickness skin graft onto the upper back wound and secured the skin graft to the skin edges with 3-0 Chromic interrupted sutures. I also used 3-0 Chromic interrupted sutures for central quilting stabilization. The size of the skin graft was 4 x 5 cm or 20 cm2. I placed Mepitel nonadherent dressing onto the skin graft followed by antibiotic ointment. I placed a BHUMIKA NPWT device onto the skin graft for compression. Good suction was noted on the NPWT device. Patient tolerated the procedure well and was sent to PACU in satisfactory condition. Patient will be sent home on antibiotics and pain medication. Patient will followup in a week for a wound check and for discussion of the pathology report and for takedown of the BHUMIKA NPWT device in order to evaluate the healing of the skin graft. The drain will be removed in 2 weeks since she has a history of seroma formation. Grafts/Implants Used: None. - Complications None. - Admit VTE Documentation VTE Present on Admission: No VTE Mechan Device Prophylaxis: SCD's VTE Pharm Prophylaxis ordered?: No Code Visit Surgery Charges CPT - 97362 ICD-10 - S20.229S, T75.89xS, Z80.8 99065 S20.229S, T75.89xS, Z80.8 09/24/18 1313 <Electronically signed by Bonilla Alvarez MD> Date Bonilla Alvarez MD CC: Bonilla Alvarez MD; Everton Cash DO Signed HISTORY AND PHYSICAL Observed: 09/19/2018 Status: F Source: [place] EXAM 6:15 PM [facility] REPOSITORY [facility] Medical Records Department [address] [place] [address] History and Physical 09/16/18 0854 MR#: [id number] Acct: [id number] Name: GAY COLEMAN Rep #: [id number] : 1965 52 From: Bonilla Alvarez MD PCP: Everton Cash DO Status: DEP [facility] [place] Location[place] [facility] [place] History and Physical Date of Admission: 09/17/18 Allergies nabumetone Allergy (Verified 07/23/18 14:48) Hives thimerosal Allergy (Verified 07/23/18 14:48) Other naproxen [From Naprosyn] Adverse Reaction (Verified 07/23/18 14:48) Other oxycodone HCl [From Percocet] Adverse Reaction (Verified 07/23/18 14:48) Other birds Allergy (Uncoded 07/23/18 14:48) Other molds Allergy (Uncoded 07/23/18 14:48) Other seasonal Allergy (Uncoded 07/23/18 14:48) Other Medications Albuterol Aerosols [Ventolin Aerosols] 2.5 mg INHALATION Q6H PRN PRN 09/22/17 [History Confirmed 03/18/18] Albuterol Inhaler [Ventolin Hfa] 2 puff INHALATION Q4H PRN PRN 09/22/17 [History Confirmed 03/18/18] Baclofen [Lioresal] 10 mg PO TID 09/22/17 [History Confirmed 03/18/18] Calcium Carbonate/Vitamin D3 [Calcium 500-Vit D3 200 Tablet] 1 ea PO DAILY 09/22/17 [History Confirmed 03/18/18] Diclofenac Sodium 100 gm TP 4X/DAY 09/22/17 [History Confirmed 03/18/18] Diclofenac [Voltaren] 75 mg PO BIDCM 09/22/17 [History Confirmed 03/18/18] Econazole [Spectazole] 1 applic TOPICAL DAILY 09/22/17 [History Confirmed 03/18/18] Estrogens, Conjugated [Premarin] 0.9 mg PO DAILY 09/22/17 [History Confirmed 03/18/18] Fluoxetine [Prozac] 40 mg PO DAILY 09/22/17 [History Confirmed 03/18/18] Linaclotide [Linzess] 290 mcg PO DAILY 09/22/17 [History Confirmed 03/18/18] Mirabegron [Myrbetriq] 25 mg PO DAILY 09/22/17 [History Confirmed 03/18/18] Mirtazapine [Remeron] 22 mg PO QHS 09/22/17 [History Confirmed 03/18/18] Pregabalin [Lyrica] 100 mg PO TID 09/22/17 [History Confirmed 03/18/18] Pyridoxine HCl [Vitamin B-6] 100 mg PO DAILY 09/22/17 [History Confirmed 03/18/18] buPROPion SR [Wellbutrin SR (150mg tablets)] 150 mg PO BID 09/22/17 [History Confirmed 03/18/18] Fluticasone/Salmeterol [Advair 250/50 Mcg Diskus] 1 puff INHALATION BID 11/26/17 [History Confirmed 03/18/18] Docusate Sodium [Colace] 100 mg PO BID cap 11/29/17 [Rx Confirmed 03/18/18] Lactobacillus Combo No.11 [Probiotic] 1 ea PO DAILY #60 cap.sprink 11/29/17 [Rx Confirmed 03/18/18] Cholecalciferol (Vitamin D3) [Vitamin D3] 1,000 unit PO DAILY 03/18/18 [History Confirmed 03/18/18] Cyanocobalamin [Vitamin B12] 500 mcg PO DAILY@0800 03/18/18 [History Confirmed 03/18/18] guselkumab 100 mg/mL subcutaneous syringe 100 mg SC Q8W 07/23/18 [History Confirmed 07/23/18] metoprolol succinate ER 25 mg capsule sprinkle, ext. release 24 hr mg PO 07/23/18 [History Confirmed 07/23/18] PFSH Medical History Lipoma of back (Chronic) Postoperative seroma of subcutaneous tissue after dermatologic procedure (Acute) Arthritis (Acute) Asthma (Acute) BREAST LUMP OR CYST (Acute) Bloating (Acute) Carpal tunnel syndrome (Acute) Cataract (Acute) Depression (Acute) GASTROINTESTIONAL PROBLEMS (Acute) Hearing problem (Acute) History of migraine headaches (Acute) Hives (Acute) IBS (irritable bowel syndrome) (Acute) LIPOMA UPPER BACK/POSTERIOR NECK (Acute) Leg weakness (Acute) Mass in neck (Acute) OAB (overactive bladder) (Acute) Osteoarthritis (Acute) Pneumonia (Acute) Polycystic ovary (Acute) Psoriasis (Acute) Recurrent infections (Acute) SPINAL STENOSIS - MULTIPLE BACK ISSUES (Acute) Seasonal allergies (Acute) Vision problems (Acute) Surgical History ADENOIDS AND TONSILS 1974 (Acute) CATARACT L AND R, TORIC LENS REPLACEMENT 2016 (Acute) COMPLETE HYSTERECTOMY WITH BSO 2015 (Acute) Deviated septum (Acute) EXCISION 8 CM PAINFUL SOFT TISSUE MASS (Acute) H/O bilateral breast reduction surgery (Acute 2013) RADIOFREQUENCY ABLATION 2017 (Acute) Family History Father Hypertension Mother Arthritis Hypertension Cancer Brother Alcohol abuse Aunt Diabetes Grandfather Alcohol abuse Grandfather Psychiatric care Cancer CVA (cerebral vascular accident) Grandmother Alcohol abuse Grandmother Arthritis Depression Other Family history of basal cell carcinoma Family history of skin cancer Social History Smoking Status: Never smoker alcohol intake: never substance use type: does not use what type of physical activity do you participate in: walking, swimming seatbelt use: always do you feel safe at home: Yes additional social history: SUN EXPOSURE: FREQUENTLY HPI evaluation painful scar contour deformity upper back: HISTORY OF PRESENT ILLNESS 52 year old woman presents with complaints of a painful scar contour deformity in her upper back. She initially had excision of a lipoma in 09/19. She developed an infected hematoma which necessitated further surgery on 11/27/17 where she underwent surgical preparation upper back/posterior neck with incision and drainage and excisional debridement infected hematoma (66 cm2). Culture showed MRSE that was resistant to Tetracycline. She was placed on Levaquin and finished them. The wound was left open and allowed to heal with wound care and antibiotics and increased nutrition. The wound healed on 03/31/18. Today she denies any fever. She denies any trauma. REVIEW OF SYSTEMS General-denies fever and weight loss. Has some fatigue. Ear nose and throat-has chronic sinus problems. Denies nasal congestion. Denies sore throat. Eyes-denies eye pain. Has cataracts. Endocrine-denies excessive thirst or urination. Skin-has painful scar contour deformity upper back from previous infected hematoma after excision of a lipoma. Has a family history of skin cancer. Musculoskeletal-has joint pain, joint stiffness, weakness of muscles and joints, back pain, and arthritis. Neurologic-has headaches. Cardiovascular-denies chest pain. Has some fatigue. Denies shortness of breath with exertion. Psychiatric-denies anxiety. Has depression. Respiratory-has some shortness of breath. His chronic cough. Has obstructive sleep apnea. Has asthma. Has history of pneumonia. Gastrointestinal-denies nausea, vomiting, and diarrhea. Has constipation. Hematologic-denies abnormal bruising. Denies bleeding. Genitourinary-has urinary frequency. Denies hematuria. Has incontinence. PHYSICAL EXAMINATION General-well developed, well nourished, in no acute distress. HEENT-pupils equal round reactive to light. Extraocular muscles intact. Throat is clear. No suspicious lesions noted. Neck-supple, nontender. No cervical adenopathy. Lungs-clear to auscultation. Heart-regular rate and rhythm. Abdomen-soft and nondistended. Extremities-full range of motion. No axillary adenopathy. No suspicious lesions noted. Back-no bony tenderness. There is a scar contour deformity upper back. Some discomfort with palpation. Measures 9 x 7 cm. No evidence of infection. No ulceration. Neuro-cranial nerves II through XII grossly intact. ASSESSMENT 1. Painful infected hematoma scar contour deformity upper back. 2. Late effect infected hematoma upper back. 3. Family history of skin cancer. 4. History of MRSE. PLAN Patient has painful symptomatology from this painful scar contour deformity with her activities of daily living. Discussed with the patient that during the healing process from her infection, sometimes extra scarring occurs over the underlying muscle that can lead to painful symptomatology. Recommend excision of this painful scar contour deformity and send it to Pathology for analysis to rule out carcinoma and to Microbiology for culture. A positive culture will necessitate antibiotic therapy. She was treated in the past with Levaquin for MRSE. Will apply an NPWT device to help with compression of the graft during the initial healing process. Surgery will be done under general anesthesia on an outpatient basis. She is still recovering from left foot surgery. Will tentatively schedule the surgery for September. Patient was informed of the risks and complications of the procedure including alternatives to surgery. These were discussed with the patient personally. Patient voices understanding and wishes to proceed. Some of the risks and complications were included in a form from the [employer]. 09/19/18 7625 <Electronically signed by Bonilla Alvarez MD> Date Bonilla Alvarez MD Cosigner Signature: Date (if applicable) CC: Bonilla Alvarez MD; Everton Cash DO Signed DISCHARGE INSTRUCTION Observed: 09/17/2018 Status: F Source: [place] 11:19 AM [facility] REPOSITORY [facility] Medical Records Department [address] [place] [address] Instructions for Home/Discharge Instructions 09/17/18 1114 MR#: [id number] Acct: [id number] Name: GAY COLEMAN Rep #: [id number] : 1965 52 From: Bonilla Alvarez MD PCP: Everton Cash DO Status: [place] [facility] [place] You will use the following diet at home:: No restrictions Discharge Activity: May not drive while taking narcotic pain medications., May Not Shower - until the drain is remove in the office., - - keep head elevated. no heavy lifting. May shower in (days): 14 - may shower after the drain is removed. May resume sexual activity in: 10-14 days Weight Bearing Status: Weight bearing as tolerated Lifting Restrictions: 20 lbs. Keep extremity elevated above heart level: - - elevate head. Call your doctor if your incision/area has: Continuous Slow Oozing, Sudden Increased Bleeding, Increased Pain/ Swelling, Increased Redness, Foul Smelling Discharge, Swelling at the incision site Call your doctor if you observe: Fever of 101 or Higher, Coldness, Increased Pain, Shortness of breath, Chest pain, Calf discomfort, Uncontrolled pain Suture Line Care: - - after skin graft dressing removed in the office, apply antibiotic ontment to the skin graft daily. Change Dressing in (Days):: 4 - will remove the skin graft dressing in office. Cleanse incision/area with: - - may get incisions and graft wet in the shower after the drain is removed in the office. Drain: Suction - mindy drain to bulb suction. empty and record output daily. Allergies/Adverse Reactions: Allergies nabumetone Allergy (Verified 09/17/18 07:27) Hives thimerosal Allergy (Verified 09/17/18 07:27) Other PER ALLERGY TESTING naproxen [From Naprosyn] Adverse Reaction (Verified 09/17/18 07:27) Other oxycodone HCl [From Percocet] Adverse Reaction (Verified 09/17/18 07:27) Other birds Allergy (Uncoded 09/17/18 07:27) Other molds Allergy (Uncoded 09/17/18 07:27) Other seasonal Allergy (Uncoded 09/17/18 07:27) Other Medications to take at Discharge Albuterol Aerosols [Ventolin Aerosols] 2.5 mg INHALATION Q6H PRN PRN 09/22/17 Albuterol Inhaler [Ventolin Hfa] 2 puff INHALATION Q4H PRN PRN 09/22/17 Baclofen [Lioresal] 10 mg PO TID 09/22/17 Calcium Carbonate/Vitamin D3 [Calcium 500-Vit D3 200 Tablet] 1 ea PO DAILY 09/22/17 Diclofenac Sodium 100 gm TP 4X/DAY 09/22/17 Diclofenac [Voltaren] 75 mg PO BIDCM 09/22/17 Econazole [Spectazole] 1 applic TOPICAL DAILY 09/22/17 Estrogens, Conjugated [Premarin] 0.9 mg PO DAILY 09/22/17 Fluoxetine [Prozac] 40 mg PO DAILY 09/22/17 Linaclotide [Linzess] 290 mcg PO DAILY 09/22/17 Mirabegron [Myrbetriq] 25 mg PO DAILY 09/22/17 Mirtazapine [Remeron] 22 mg PO QHS 09/22/17 Pregabalin [Lyrica] 100 mg PO TID 09/22/17 Pyridoxine HCl [Vitamin B-6] 100 mg PO DAILY 09/22/17 buPROPion SR [Wellbutrin SR (150mg tablets)] 150 mg PO BID 09/22/17 Fluticasone/Salmeterol [Advair 250/50 Mcg Diskus] 1 puff INHALATION BID 11/26/17 Docusate Sodium [Colace] 100 mg PO BID cap 11/29/17 Lactobacillus Combo No.11 [Probiotic] 1 ea PO DAILY #60 cap.sprink 11/29/17 Cholecalciferol (Vitamin D3) [Vitamin D3] 1,000 unit PO DAILY 03/18/18 Cyanocobalamin [Vitamin B12] 500 mcg PO DAILY@0800 03/18/18 guselkumab 100 mg/mL subcutaneous syringe 100 mg SC Q8W 07/23/18 Fluticasone Furoate [Arnuity Ellipta] 50 mcg IH PRN PRN 09/10/18 Topiramate [Topamax] 25 mg PO BID 09/10/18 Hydrocodone/Acetaminophen [Hydrocodone-Acetamin 5-325 mg] 1 ea PO 4X/DAY PRN PRN 5 Days #40 tab 09/17/18 levoFLOXacin tablet [Levaquin tablet] 500 mg PO DAILY #14 tab 09/17/18 The following prescriptions were given: Hydrocodone/Acetaminophen [Hydrocodone-Acetamin 5-325 mg] 1 ea PO 4X/DAY PRN PRN 5 Days #40 tab PRN Reason: Pain levoFLOXacin tablet [Levaquin tablet] 500 mg PO DAILY #14 tab Primary Care Physician: Everton Acevedo DO [Primary Care Provider] - Test Results: Test results from this visit will be discussed in further detail at your follow-up appointment, if applicable. Please Follow Up With: Bonilla Alvarez MD When: friday09/21/18. call [phone] for appt. Proposed Discharge Date: 09/17/18 09/17/18 1119 <Electronically signed by Bonilla Alvarez MD> Date Bonilla Alvarez MD CC: Everton Cash DO PROGRESS Observed: 09/17/2018 Status: COMPLETED Source: [place] 9:55 AM [facility] [place] REPOSITORY [facility] ID: [id number] Author: Mary (Pt) José Service: (none) Author Type: Physical Therapist Type: Progress Notes Filed: 09/21/2018 12:00 PM Note Text: Episode Visit Count: 1 Therapist That Will Oversee The Plan Of Care: Mary Kumar PT Start of Care Date: 09/16/18 Onset Date: 05/03/18 Patient Identified by Name and Date of : Yes REHABILITATION AND SPORTS THERAPY PHYSICAL THERAPY EVALUATION PLAN OF CARE: Assessment: Gay Coleman presents with the diagnosis of acute pain of R knee and patellar tendinitis of R knee. On her PT order, Dr. Hill recommended US and may consider iontophoresis. Suggested to Gay that we try exercise and US and then may think about iontophoresis. Patient was in agreement with plan. She presents with impairments of pain in R knee, swollen R knee, decreased B LE strength, and impaired STS. She may benefit from skilled therapy services to improve pain of R knee, B LE strength, and STS. Patient will be having surgery tomorrow to get a skin graft on the back of her neck where her lipoma was removed, so may need to delay return visit to therapy. Prognosis: Fair Fair due to: chronic nature of impairments;poor past response to therapy intervention;coping skills Goals for Episode of Care: created on 09/16/18 through 11/12/18 Bowman in home exercise program. Patient will decrease pain rating by 2 points to meet minimal clinical important difference for numeric pain rating scale. (Goal: Best 3/10 and Worst: 6/10) Patient will increase strength of B LEs to 5/5 to allow for return to prior functional status and normalized gait mechanics. Perform squatting without pain. Demonstrate improvement on functional score: Patient will increase his/her score on the Lower Extremity Functional Scale by at least 9 points to indicate a Minimal Clinical Important Difference. (Goal: 34/80) Improve postural awareness. Patient will improved 30 sec STS to 16 reps. Patient will have not swelling at R knee cap joint line. G CODE REPORTING Based on clinical assessment and the score on the LEFS Assessment Tool, the G code and corresponding severity modifiers are documented below. Evaluation: 09/16/2018 Current Status: Mobility: Walking and Moving Around: G8978 CL 60-79% impaired Goal Status: Mobility: Walking and Moving Around: G8979 CK 40-59% impaired Planned Interventions, Frequency, and Duration: Current Frequency: 2x/week Duration: 4 weeks Total Number of Visits Planned: 9 Planned Treatment Interventions: Therapeutic exercise;Manual therapy;Patient/Family/Caregiver Education;Neuromuscular re-education;Self-assisted management;Modalities;General ConditioningUltrasound PLAN FOR NEXT VISIT: warm up on bike, review exercises, progress hip and knee strengtheing. Ultrasound of knee Patient demonstrates good understanding of plan of care and treatment. The above goals and plan of care were discussed and agreed upon by patient/family. SUBJECTIVE: Gay Coleman is a 52 year old female seen today for R knee pain started shortly after L ankle surgery in May. Patient was crawling on R knee to get around, which probably caused her sx. Tomorrow having 3rd surgery on neck d/t lipoma and will be having a skin graft.. Will have to wear a wound vac for at least a week. Called her insurance and iontophoresis will be covered. 13 PT visits used for this year. Patient states she is still struggling with B leg weakness. Patient Goals: To get rid of pain Functional Limitations: bending;kneeling;squatting;walking;stair negotiation;rising from a chair Prior Level of Function: Independent without limitations Intake Information: Prescription present Previous Treatment: (Ice/heat/Diclofenac Gel) Falls Interview: No positive findings with falls interview Pain Score: 8/10 (Best: 5/10 Worst: 8/10) Pain Location: Knee - Right;Neck;Back (inferior to R knee cap) Description: Aching;Sharp Frequency: Continuous Post Treatment Pain Score: No Change OBJECTIVE MEASURES WITH LEVEL OF FUNCTION: Posture / Alignment Posture: Forward head;Rounded shoulders;Increased lumbar lordosis Knee Observations R Knee Presents with: Comments R Knee Presents with Comments: pain at inferior aspect of knee cap R Circumference mid patella (inches): 17.5 inches R Circumference 6 inches below mid-patella (inches): 15.5 inches L Circumference mid patella (inches): 17 inches L Circumference 6 inches below mid-patella (inches): 15.25 inches LE AROM R Knee Extension: 0 Degrees R Knee Flexion: 130 Degrees L Knee Extension: 0 Degrees L Knee Flexion: 130 Degrees LE Strength R Hip Flexion (L2): 4-/5 R Hip ABduction: 4/5 R Hip ADduction: 4+/5 R Knee Extension (L3): 4/5 R Knee Flexion: 4/5 R Ankle Dorsiflexion (L4): 5/5 L Hip Flexion (L2): 4-/5 L Hip ABduction: 4/5 L Hip ADduction: 4+/5 L Knee Extension (L3): 4/5 L Knee Flexion: 4/5 L Ankle Dorsiflexion (L4): 5/5 Special Tests - Knee Knee Special Tests: Valgus stress at 0 degrees;Valgus stress at 30 degrees;Varus stress at 0 degrees;Varus stress at 30 degrees;Anterior Drawer Anterior Drawer: Left Negative Valgus stress at 0 degrees: Left Negative Valgus stress at 30 degrees: Left Negative Varus stress at 0 degrees: Left Negative Varus stress at 30 degrees: Left Negative Functional Performance Test Results 30 Second Sit to Stand Test (reps): 6 reps (with use of arms) Timed Up and Go (sec): 14 sec Education: Education Learning Preferences: Demonstration;Explanation;Performance;Printed Materials Barriers: Desire and Motivation;Emotions Learning/educational needs: Home exercise program;Plan of Care Education Provided: Yes, see treatment interventions for education provided Education Provided To: Patient Education Mode/Type: Demonstration;Explanation/Discussion;Literature/Printed Materials;Performance Response to Education/Teach Back: Return Demonstration;Requires Review/Additional Education TREATMENT: Evaluation Therapeutic Exercise: 1: *Supine B SLR + Pelvic Tilt +TA x10, 3 sec holds 2: *Side lying Hip ABD + TA x10, 3 sec holds, B 3: *Prone Hip Ext x10, 3 sec holds, B 4: *Side lying Hip ADD + TA x10, 3 sec holds, B Skilled Intervention: Patient was educated in proper exercise technique and purpose for exercises. Reviewed and educated patient on additions/changes for home exercise program as above (*) Skilled judgment was provided in selection of appropriate interventions. Provided written instruction for home exercise program to facilitate proper performance and compliance. Correct performance of therapeutic exercises was facilitated with verbal, visual and tactile cuing. Education on trying exercise and US and then may consider iontophoresis. Billing: [facility]: Evaluation - Low Complexity (33777) Therapeutic Exercise (49878): 1:1 time: 23 minutes (2 units: 23-37 mins) Total time: 45 minutes Mary Kumar PT SCAR TISSUE, KELOID Observed: 09/17/2018 Status: F Source: [place] 8:00 AM [facility] REPOSITORY Patient: GAY COLEMAN : 1965 (52/F) Acct Num: [id number] Phys: Bonilla Alvarez MD Unit Num: [id number] Loc: [facility] [place] Specimen: [id number] Received: 09/17/18 - 1233 Spec Type: Scar TISSUES 1 TISSUES: CICATRIX/SCAR GROSS DESCRIPTION Received in fixative is one container labeled with the patient's name and designated upper back infected hematoma scar tissue. The specimen consists of an irregular fragment of pink-edwards skin with attached yellow fibrofatty tissue. The specimen measures 6 x 5.5 and depth of excision measuring 2 cm. Serial sections do not reveal mass lesions. Octave Board Racker sections are submitted in 2 cassettes. AM:suresh 09/17/18 TC: 5 CPT: 97675 HEADER OPERATION: Surgical preparation, hematoma scar, upper back, skin grafting PRE-OP DIAGNOSIS: Painful scar deformity of upper back, late effect, infected hematoma of the upper back TISSUE SUBMITTED: Upper back infected hematoma scar tissue MICROSCOPIC DESCRIPTION Slides are reviewed. MICROSCOPIC DIAGNOSIS Upper back infected hematoma scar tissue: A piece of skin with underlying tissue with focal dense fibrosis and chronic inflammation and foreign body giant cell reaction. SJ:suresh 09/18/18 Signed Raymundo Hyatt 09/18/18 <signature on file> Performed By: #### PSCAR #### [facility] [address], [place], [address] Observed: 09/17/2018 Status: F Source: [place] CULTURE, DEEP WOUND 12:00 AM [facility] REPOSITORY Order Date: 06/04/17 List Antibiotics Last 48 Hours? VANCOMYCIN Has pt arrived? Y Comments: UPPER BACK INFECTED HEMATOMA SCAR TISSUE Gram Stain Gram Stain 4+ Red Blood Cells No White Blood Cells No organisms seen Wound Culture No growth aerobically. Cult, Anaerobic No growth in 5 days. Performed By: #### M100.1500 #### [facility] [address] [place], [address] Observed: 09/17/2018 Status: F Source: [place] CULTURE, FUNGUS W/ 12:00 AM [facility] [id number] REPOSITORY Comments: UPPER BACK INFECTED HEMATOMA SCAR TISSUE Has pt arrived? Y Is this test to exclude patient from TB Isolation? N Grace,[id number] TESTING PERFORMED AT [facility]. ORIGINAL REPORT ON FILE IN LAB CONTAINS ADDITIONAL TEST SITE INFORMATION. CUF No yeast or mold isolated after [address] TESTING PERFORMED AT [facility]. ORIGINAL REPORT ON FILE IN LAB CONTAINS ADDITIONAL TEST SITE INFORMATION. Fungus Stain No yeast or mold observed. Performed By: #### M600.1900 #### [facility] [place], [address] CNTHERAPY Observed: 09/16/2018 Status: COMPLETED Source: TARA 12:15 PM [facility] REPOSITORY OT/PT/Speech Visit (PTWS) GAY COLEMAN ([id number]) 1965 F Date Time Provider Department 09/16/18 12:15 PM MARY KUMAR (PT) PTWS Date Time Provider Department [place] 09/16/2018 12:15 PM [id number], DIANA (PT)PTWS [facility] [place] Reason for Visit: PT Eval [747] Patient Education [91] Primary Visit Diagnosis:Acute pain of right knee [M25.561] Other Visit Diagnosis:Patellar tendinitis of right knee [M76.51] Allergies As of Date: 09/16/2018 Noted Allergy Reaction DUST 12/26/2006 NABUMETONE 10/04/2014 8 - GI Upset SEASONAL ALLERGIES 06/19/2015 14 - Other: See Comments SMOKE 12/26/2006 THIMERISOL (THIMEROSAL) 01/09/2016 5 - Intolerance Date Reviewed: 09/10/2018 Reviewed by: Canelo Hill - Fully Assessed Prescriptions as of 09/16/2018 Sig: BUDESONIDE-FORMOTEROL HFA 80 * Inhale 2 Puffs as instructed * ALBUTEROL SULFATE 2.5 MG/3 ML* Use 3 mL via nebulizer every * TOPIRAMATE 25 MG TABLET Take 1 tablet by mouth twice * FLUOXETINE 40 MG CAPSULE TAKE ONE CAPSULE BY MOUTH ONC* MYRBETRIQ 25 MG TABLET,EXTEND* TAKE ONE TABLET BY MOUTH ONCE* METOPROLOL TARTRATE 25 MG TAB* Take 25 mg by mouth twice sudhakar* MIRTAZAPINE 30 MG TABLET Take 30 mg by mouth daily at * GUSELKUMAB 100 MG/ML SUBCUTAN* Inject subcutaneously. NALTREXONE 8 MG-BUPROPION 90 * Take 1 tablet by mouth as dir* CLOBETASOL 0.05 % TOPICAL CRE* Apply to affected area twice * HYDROCODONE 5 MG-ACETAMINOPHE* Take 1 tablet by mouth every * X LINZESS 290 MCG CAPSULE TAKE ONE CAPSULE BY MOUTH ONC* FLUTICASONE 50 MCG/ACTUATION * Use 2 Sprays in each nostril * COMPOUNDED PRESCRIPTION Aqua Therapy DX: E66.01; M5* COMPOUNDED PRESCRIPTION Consult pulmonary rehab CONJUGATED ESTROGENS 0.9 MG T* Take 1 tablet by mouth once d* PREGABALIN 100 MG CAPSULE Take 100 mg by mouth three ti* X BUPROPION HCL SR 150 MG TABLE* Take 1 tablet by mouth twice * MECLIZINE 12.5 MG TABLET Take 1-2 tablets by mouth twi* ALBUTEROL SULFATE HFA 90 MCG/* Inhale 2 Puffs as instructed * DICLOFENAC SODIUM 75 MG TABLE* Take 1 tablet by mouth twice * DICLOFENAC 1 % TOPICAL GEL Apply to affected area four * BACLOFEN 10 MG TABLET Take 1 tablet by mouth twice * Patient taking differently: Take 10 mg by mouth three justino* TRANSCUTANEOUS ELECTRICAL NER* 1 Device as needed. COMPOUNDED PRESCRIPTION Order: cock up splints (2) D* CHOLECALCIFEROL (VITAMIN D3) * Take 5,000 Units by mouth onc* CYANOCOBALAMIN (VIT B-12) 1,0* Take 1,000 mcg by mouth once * DOCUSATE SODIUM 250 MG CAPSULE Take 250 mg by mouth once sudhakar* Progress Notes: Mary Kumar, PT 09/21/2018 12:00 PM Addendum Episode Visit Count: 1 Therapist That Will Oversee The Plan Of Care: Mary Kumar, PT Start of Care Date: 09/16/18 Onset Date: 05/03/18 Patient Identified by Name and Date of : Yes REHABILITATION AND SPORTS THERAPY PHYSICAL THERAPY EVALUATION PLAN OF CARE: Assessment: Gay Coleman presents with the diagnosis of acute pain of R knee and patellar tendinitis of R knee. On her PT order, Dr. Hill recommended US and may consider iontophoresis. Suggested to Gay that we try exercise and US and then may think about iontophoresis. Patient was in agreement with plan. She presents with impairments of pain in R knee, swollen R knee, decreased B LE strength, and impaired STS. She may benefit from skilled therapy services to improve pain of R knee, B LE strength, and STS. Patient will be having surgery tomorrow to get a skin graft on the back of her neck where her lipoma was removed, so may need to delay return visit to therapy. Prognosis: Fair Fair due to: chronic nature of impairments;poor past response to therapy intervention;coping skills Goals for Episode of Care: created on 09/16/18 through 11/12/18 Bowman in home exercise program. Patient will decrease pain rating by 2 points to meet minimal clinical important difference for numeric pain rating scale. (Goal: Best 3/10 and Worst: 6/10) Patient will increase strength of B LEs to 5/5 to allow for return to prior functional status and normalized gait mechanics. Perform squatting without pain. Demonstrate improvement on functional score: Patient will increase his/her score on the Lower Extremity Functional Scale by at least 9 points to indicate a Minimal Clinical Important Difference. (Goal: 34/80) Improve postural awareness. Patient will improved 30 sec STS to 16 reps. Patient will have not swelling at R knee cap joint line. G CODE REPORTING Based on clinical assessment and the score on the LEFS Assessment Tool, the G code and corresponding severity modifiers are documented below. Evaluation: 09/16/2018 Current Status: Mobility: Walking and Moving Around: G8978 CL 60-79% impaired Goal Status: Mobility: Walking and Moving Around: G8979 CK 40-59% impaired Planned Interventions, Frequency, and Duration: Current Frequency: 2x/week Duration: 4 weeks Total Number of Visits Planned: 9 Planned Treatment Interventions: Therapeutic exercise;Manual therapy;Patient/Family/Caregiver Education;Neuromuscular re-education;Self-assisted management;Modalities;General ConditioningUltrasound PLAN FOR NEXT VISIT: warm up on bike, review exercises, progress hip and knee strengtheing. Ultrasound of knee Patient demonstrates good understanding of plan of care and treatment. The above goals and plan of care were discussed and agreed upon by patient/family. SUBJECTIVE: Gay Coleman is a 52 year old female seen today for R knee pain started shortly after L ankle surgery in May. Patient was crawling on R knee to get around, which probably caused her sx. Tomorrow having 3rd surgery on neck d/t lipoma and will be having a skin graft.. Will have to wear a wound vac for at least a week. Called her insurance and iontophoresis will be covered. 13 PT visits used for this year. Patient states she is still struggling with B leg weakness. Patient Goals: To get rid of pain Functional Limitations: bending;kneeling;squatting;walking;stair negotiation;rising from a chair Prior Level of Function: Independent without limitations Intake Information: Prescription present Previous Treatment: (Ice/heat/Diclofenac Gel) Falls Interview: No positive findings with falls interview Pain Score: 8/10 (Best: 5/10 Worst: 8/10) Pain Location: Knee - Right;Neck;Back (inferior to R knee cap) Description: Aching;Sharp Frequency: Continuous Post Treatment Pain Score: No Change OBJECTIVE MEASURES WITH LEVEL OF FUNCTION: Posture / Alignment Posture: Forward head;Rounded shoulders;Increased lumbar lordosis Knee Observations R Knee Presents with: Comments R Knee Presents with Comments: pain at inferior aspect of knee cap R Circumference mid patella (inches): 17.5 inches R Circumference 6 inches below mid-patella (inches): 15.5 inches L Circumference mid patella (inches): 17 inches L Circumference 6 inches below mid-patella (inches): 15.25 inches LE AROM R Knee Extension: 0 Degrees R Knee Flexion: 130 Degrees L Knee Extension: 0 Degrees L Knee Flexion: 130 Degrees LE Strength R Hip Flexion (L2): 4-/5 R Hip ABduction: 4/5 R Hip ADduction: 4+/5 R Knee Extension (L3): 4/5 R Knee Flexion: 4/5 R Ankle Dorsiflexion (L4): 5/5 L Hip Flexion (L2): 4-/5 L Hip ABduction: 4/5 L Hip ADduction: 4+/5 L Knee Extension (L3): 4/5 L Knee Flexion: 4/5 L Ankle Dorsiflexion (L4): 5/5 Special Tests - Knee Knee Special Tests: Valgus stress at 0 degrees;Valgus stress at 30 degrees;Varus stress at 0 degrees;Varus stress at 30 degrees;Anterior Drawer Anterior Drawer: Left Negative Valgus stress at 0 degrees: Left Negative Valgus stress at 30 degrees: Left Negative Varus stress at 0 degrees: Left Negative Varus stress at 30 degrees: Left Negative Functional Performance Test Results 30 Second Sit to Stand Test (reps): 6 reps (with use of arms) Timed Up and Go (sec): 14 sec Education: Education Learning Preferences: Demonstration;Explanation;Performance;Printed Materials Barriers: Desire and Motivation;Emotions Learning/educational needs: Home exercise program;Plan of Care Education Provided: Yes, see treatment interventions for education provided Education Provided To: Patient Education Mode/Type: Demonstration;Explanation/Discussion;Literature/Printed Materials;Performance Response to Education/Teach Back: Return Demonstration;Requires Review/Additional Education TREATMENT: Evaluation Therapeutic Exercise: 1: *Supine B SLR + Pelvic Tilt +TA x10, 3 sec holds 2: *Side lying Hip ABD + TA x10, 3 sec holds, B 3: *Prone Hip Ext x10, 3 sec holds, B 4: *Side lying Hip ADD + TA x10, 3 sec holds, B Skilled Intervention: Patient was educated in proper exercise technique and purpose for exercises. Reviewed and educated patient on additions/changes for home exercise program as above (*) Skilled judgment was provided in selection of appropriate interventions. Provided written instruction for home exercise program to facilitate proper performance and compliance. Correct performance of therapeutic exercises was facilitated with verbal, visual and tactile cuing. Education on trying exercise and US and then may consider iontophoresis. Billing: [facility]: Evaluation - Low Complexity (46190) Therapeutic Exercise (53250): 1:1 time: 23 minutes (2 units: 23-37 mins) Total time: 45 minutes Mary Kumar PT Previous Version PROGRESS Observed: 09/10/2018 Status: COMPLETED Source: [place] 5:28 PM [facility] [place] REPOSITORY HNO ID: [id number] Author: Canelo Hill Service: (none) Author Type: Physician Type: Progress Notes Filed: 10/09/2018 4:09 PM Note Text: Canelo Hill MD Department of Orthopaedics Orthopaedics [address] [facility] [address] Dept: [phone] Dept September 10, 2018 CHIEF COMPLAINT: Established Patient (Right knee pain, xray- 05/30/18, last seen 12/24/16 s/p b/l CTR (11/08/16) ) HPI: Ms. Gay Coleman is a 52 year old female who presents with 7 out of 10 pain that's aching and sharp in the front of the knee this is been over 2 months now. She had surgery on her left foot is putting a lot of pressure on the right knee and began having more problems. Very painful going up or down stairs. She does see a hand paint mixer. ASSESSMENT: M25.561 Acute pain of right knee (primary encounter diagnosis) M76.51 Patellar tendinitis of right knee PLAN: PT. Possible ionotophoresis if allowable with insurance. FOLLOW UP INSTRUCTIONS: It appears she has patellar tendinitis. Some physical therapy should benefit her. Ultrasound or even ionophoresis might be an option. Ms. Gay Coleman was advised as to contrast therapies and/or to take analgesics/anti-inflammatories as needed and all contraindications were reviewed. OBJECTIVE: Ms. Gay Coleman is a pleasant 52 year old in no apparent distress. Gen:LMP 03/02/2015 nl development, obese, no deformities ENT: Normocephalic, normal hearing, moist mucosa CV: Pulses:DP/PT= 2+ and symmetric, capillary refill < 2 secs, no peripheral edema/varicosities Skin: no rash, bruising or lesions. Good turgor. Psych: cooperative and appropriate, alert and oriented x 3, good mood and affect. Musculoskeletal: Patient walks with antalgia, normal station. Hip motion without pain. Knee scant effusion. Patella tracks normally. There is no patellar crepitance, though exquisite tenderness directly over the infrapatellar tendon.. No pain along the medial or lateral facets. Range of motion 0?125 degrees. Mild medial , without lateral joint line pain on palpation. Ligamentous exam stable on varus and valgus stress testing at 0 and 30 degrees. Tesha's examination is negative. Posterior drawer is negative. Negative McMurrays, without palpable click. Extremity is warm and well perfused. Sensation is grossly intact to light touch, subjectively. IMAGING: IMPRESSION: Mild degenerative changes of the knee. Skydiving Instructor: BHAVNA ? Transcribe Date/Time: May 29 2018 12:54P Dictated by : CYNTHIA MULLEN MD This examination was interpreted and the report reviewed and electronically signed by: YCNTHIA MULLEN MD on May 29 2018 12:55PM ?EST Results-Findings * * *Final Report* * * DATE OF EXAM: May 29 2018 12:52PM ? WRX ? 5203 ?- ?XR KNEE 4V AP/PA BOTH+LAT/DILLAN RT ?/ PROCEDURE REASON: multiple diagnoses ?? ? * * * * Physician Interpretation * * * * ?XR KNEE 4V AP/PA BOTH+LAT/DILLAN RT HISTORY: Pain in right knee Other bursitis of knee, right knee COMPARISON: ?None. FINDINGS: No evidence of fracture or destructive process. ?Slight narrowing of the medial femorotibial compartment. ?Small lateral patellar osteophyte. ?No demonstrated soft tissue abnormality. Supporting Subjective Information Below: Past Medical History: PAST MEDICAL HISTORY Diagnosis Date - Allergic rhinitis, cause unspecified Allergic rhinitis - Asthma - Bloating - Carpal tunnel syndrome, bilateral 10/22/2016 - Constipation - Depressive disorder, not elsewhere classified - Eczema - Impaired fasting glucose 10/2015 - Insomnia Dr Fitzpatrick, on Bipap - Liver cyst 08/2016 benign - Lumbar radiculopathy, chronic L5/S1 - Migraine without aura 12/26/2006 - Mild carpal tunnel syndrome 04/2016 - OAB (overactive bladder) 10/31/2016 - OLGA (obstructive sleep apnea) Dr Fitzpatrick, on Bipap - Other chronic sinusitis - Perimenopausal 11/16/2012 - Psoriasis Gets injections every 3 months for this from Sameer Mata MD - Sensorineural hearing loss [place] Past Surgical History: PAST SURGICAL HISTORY Procedure Laterality Date - BREAST BIOPSY Right - CARPAL TUNNEL Bilateral 01/2017 - CATARACT SURGERY, COMPLEX right eye, left eye - COLONOSCOP W/ OR W/O BRSH SPEC 01/26/15 Colonoscopy - EXCISION NOSE POLYP(S),SIMPLE Nasal polypectomy - HYSTERECTOMY HX 2014 TRH with BSO - IANDD HEMATOMA 11/27/2017 incision and drainage of infected hematoma [facility] - PAST SURGICAL HISTORY OF 2015 bilateral foot bxs - PAST SURGICAL HISTORY OF 2015 nasal surgery/Turbinates - PAST SURGICAL HISTORY OF 04/2015 adnexal mass removal- benign - PAST SURGICAL HISTORY OF Bilateral 2010 bilateral breast reduction - PAST SURGICAL HISTORY OF mass removed from neck - PAST SURGICAL HISTORY OF 11/27/2017 IANDD infected hematoma upper back/posterior neck - REMOVAL OF TONSILS,<11 Y/O Tonsillectomy AND adenoidectomy - REPAIR OF NASAL SEPTUM Septoplasty - TORIC LENS left eye Family History: FAMILY HISTORY Problem Relation Age of Onset - Hypertension Mother - Hypertension Father - Stroke Maternal Grandfather - Alcohol/Drug Paternal Grandmother - Alcohol/Drug Paternal Grandfather - Hypertension Brother - Diabetes Maternal Aunt - Alcohol/Drug Paternal Aunt - Alcohol/Drug Paternal Uncle - Cancer Paternal Uncle - Stroke Maternal Aunt Social History:Social History Marital status: Spouse name: Inocente Years of education: 14 Number of children: 0 Occupational History Occupation Employer Comment [employer] Social History Main Topics Smoking status: Never Smoker Smokeless tobacco: Never Used Alcohol use: No Drug use: No Sexual activity: Yes Partners with: Male Social History Narrative 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 albuterol (PROVENTIL) 2.5 mg /3 mL (0.083 %) nebulizer solution Use 3 mL via nebulizer every 4 hours as needed for Wheezing/Shortness of Breath. Use over 5-15minutes. topiramate (TOPAMAX) 25 mg tablet Take 1 tablet by mouth twice daily. FLUoxetine HCl (PROZAC) 40 mg capsule TAKE ONE CAPSULE BY MOUTH ONCE DAILY MYRBETRIQ 25 mg Tb24 TAKE ONE TABLET BY MOUTH ONCE DAILY mirtazapine (REMERON) 30 mg tablet Take 30 mg by mouth daily at bedtime. LINZESS 290 mcg cap TAKE ONE CAPSULE BY MOUTH ONCE DAILY fluticasone (FLONASE) 50 mcg/actuation nasal spray Use 2 Sprays in each nostril once daily. Rinse mouth after use. estrogens conjugated (PREMARIN) 0.9 mg tablet Take 1 tablet by mouth once daily. pregabalin (LYRICA) 100 mg capsule Take 100 mg by mouth three times daily. buPROPion SR (ZYBAN SR; WELLBUTRIN SR) 150 mg 12 hr tablet Take 1 tablet by mouth twice daily. albuterol HFA (VENTOLIN HFA) 90 mcg/actuation inhaler Inhale 2 Puffs as instructed every 4 hours as needed for Wheezing/Shortness of Breath. diclofenac, EC, (VOLTAREN) 75 mg EC tablet Take 1 tablet by mouth twice daily. For pain/inflammation. Take with food. PER DR. MALONE diclofenac sodium (VOLTAREN) 1 % topical gel Apply to affected area four times daily. PER DR. MALONE baclofen (LIORESAL) 10 mg tablet Take 1 tablet by mouth twice daily. (Patient taking differently: Take 10 mg by mouth three times daily.) TENS Units malika 1 Device as needed. Cholecalciferol, Vitamin D3, 5,000 unit tab Take 5,000 Units by mouth once daily. cyanocobalamin (VITAMIN B-12) 1,000 mcg tab Take 1,000 mcg by mouth once daily. Docusate Sodium 250 mg capsule Take 250 mg by mouth once daily. metoprolol tartrate, short acting, (LOPRESSOR) 25 mg tablet Take 25 mg by mouth twice daily. guselkumab (TREMFYA) 100 mg/mL syrg Inject subcutaneously. naltrexone-bupropion (CONTRAVE) 8-90 mg TbER Take 1 tablet by mouth as directed. 2 tablets PO bid clobetasol (TEMOVATE) 0.05 % cream Apply to affected area twice daily. HYDROcodone-acetaminophen (NORCO) 5-325 mg per tablet Take 1 tablet by mouth every 6 hours as needed for Pain. For post op pain per Dr. Velasquez Fill Date: 05/26/18 COMPOUNDED PRESCRIPTION Aqua Therapy DX: E66.01; M50.30; M51.36 COMPOUNDED PRESCRIPTION Consult pulmonary rehab meclizine (ANTIVERT) 12.5 mg tab Take 1-2 tablets by mouth twice daily as needed (dizziness). COMPOUNDED PRESCRIPTION Order: cock up splints (2)Dx: carpal tunnel syndrome bilateral No current facility-administered medications for this visit. Allergies: Dust; Nabumetone; Seasonal Allergies; Smoke; Thimerisol [Thimerosal] ROS: General (negative for fatigue, malaise, weight loss/gain) HEENT (negative for headache, earache, recent vision changes, sinus pain, sore throat) Respiratory (no recent shortness of breath, hemoptysis) CV (negative for chest tightness, palpitations) Musculoskeletal (see HPI) Psych (no depression, anxiety) REFERRING PHYSICIAN: Ms. Gay Coleman was referred to wi for consultation by the following physician. This consultation note will be sent to the following physician by either mail or electronic medical record. Everton Acevedo, DO [address] [facility] [id number] Everton Acevedo, DO [address] [facility] [address] This note was partially generated using [employer] voice recognition system, and there may be some incorrect words, spellings, and punctuation that were not noted in checking the note before saving. Canelo Hill MD PROGRESS Observed: 09/10/2018 Status: COMPLETED Source: [place] 12:50 PM [facility] [place] REPOSITORY HNO ID: [id number] Author: Eden RosaRn)(Hist) IRMA Brown Service: (none) Author Type: Registered Nurse Type: Progress Notes Filed: 10/09/2018 4:09 PM Note Text: AMB ROOMING INTAKE FLOWSHEET DATA Risk Screening Do you have concerns about personal safety or safety in the home?: No Pain Pain Score: 7/10 Pain Location: Knee-Right Description: Aching, Sharp Duration Amount of Time: 2 Duration Units: Months Frequency: Continuous Intervention: Cold, Medication (motrin/tylenol ) Comments: injection Patient presents with: Established Patient: Right knee pain, xray- 05/30/18, last seen 12/24/16 s/p b/l CTR (11/08/16) Patient is here for right knee pain, she has right knee pain, She had left foot surgery so she was putting a lot of pressure on her right knee. Patient states it is painful going up steps. She received injection from Dr. Acevedo, which only helped for 2 weeks. Pain is located in anterior part of knee. Patient sees Dr. Ibrahim from pain management. Eden Brown RN CNOV Observed: 09/10/2018 Status: COMPLETED Source: [place] 12:25 PM [facility] REPOSITORY Office Visit (ORTHWS) GAY COLEMAN ([id number]) 1965 F Date Time Provider Department 09/10/18 12:25 PM CANELO HILL During your visit today, we recorded the following information about you: Eden Brown RN, RN 10/09/2018 4:09 PM Signed AMB ROOMING INTAKE FLOWSHEET DATA Risk Screening Do you have concerns about personal safety or safety in the home?: No Pain Pain Score: 710 Pain Location: Knee-Right Description: Aching, Sharp Duration Amount of Time: 2 Duration Units: Months Frequency: Continuous Intervention: Cold, Medication (motrin/tylenol ) Comments: injection Patient presents with: Established Patient: Right knee pain, xray- 05/30/18, last seen 12/24/16 s/p b/l CTR (11/08/16) Patient is here for right knee pain, she has right knee pain, She had left foot surgery so she was putting a lot of pressure on her right knee. Patient states it is painful going up steps. She received injection from Dr. Acevedo, which only helped for 2 weeks. Pain is located in anterior part of knee. Patient sees Dr. Ibrahim from pain management. IRMA Dunn MD 10/09/2018 4:09 PM Signed Canelo Hill MD Department of Orthopaedics Orthopaedics [address] [facility] [address] Dept: [phone] Dept September 10, 2018 CHIEF COMPLAINT: Established Patient (Right knee pain, xray- 05/30/18, last seen 12/24/16 s/p b/l CTR (11/08/16) ) HPI: Ms. Gay Coleman is a 52 year old female who presents with 7 out of 10 pain that's aching and sharp in the front of the knee this is been over 2 months now. She had surgery on her left foot is putting a lot of pressure on the right knee and began having more problems. Very painful going up or down stairs. She does see a hand paint mixer. ASSESSMENT: M25.561 Acute pain of right knee (primary encounter diagnosis) M76.51 Patellar tendinitis of right knee PLAN: PT. Possible ionotophoresis if allowable with insurance. FOLLOW UP INSTRUCTIONS: It appears she has patellar tendinitis. Some physical therapy should benefit her. Ultrasound or even ionophoresis might be an option. Ms. Gay Coleman was advised as to contrast therapies and/or to take analgesics/anti-inflammatories as needed and all contraindications were reviewed. OBJECTIVE: Ms. Gay Coleman is a pleasant 52 year old in no apparent distress. Gen:LMP 03/02/2015 nl development, obese, no deformities ENT: Normocephalic, normal hearing, moist mucosa CV: Pulses:DP/PT= 2+ and symmetric, capillary refill < 2 secs, no peripheral edema/varicosities Skin: no rash, bruising or lesions. Good turgor. Psych: cooperative and appropriate, alert and oriented x 3, good mood and affect. Musculoskeletal: Patient walks with antalgia, normal station. Hip motion without pain. Knee scant effusion. Patella tracks normally. There is no patellar crepitance, though exquisite tenderness directly over the infrapatellar tendon.. No pain along the medial or lateral facets. Range of motion 0?125 degrees. Mild medial , without lateral joint line pain on palpation. Ligamentous exam stable on varus and valgus stress testing at 0 and 30 degrees. Tesha's examination is negative. Posterior drawer is negative. Negative McMurrays, without palpable click. Extremity is warm and well perfused. Sensation is grossly intact to light touch, subjectively. IMAGING: IMPRESSION: Mild degenerative changes of the knee. Skydiving Instructor: PSCB ? Transcribe Date/Time: May 29 2018 12:54P Dictated by : CYNTHIA MULLEN MD This examination was interpreted and the report reviewed and electronically signed by: CYNTHIA MULLEN MD on May 29 2018 12:55PM ?EST Results-Findings * * *Final Report* * * DATE OF EXAM: May 29 2018 12:52PM ? WRX ? 5203 ?- ?XR KNEE 4V AP/PA BOTH+LAT/DILLAN RT ?/ PROCEDURE REASON: multiple diagnoses ?? ? * * * * Physician Interpretation * * * * ?XR KNEE 4V AP/PA BOTH+LAT/DILLAN RT HISTORY: Pain in right knee Other bursitis of knee, right knee COMPARISON: ?None. FINDINGS: No evidence of fracture or destructive process. ?Slight narrowing of the medial femorotibial compartment. ?Small lateral patellar osteophyte. ?No demonstrated soft tissue abnormality. Supporting Subjective Information Below: Past Medical History: PAST MEDICAL HISTORY Diagnosis Date - Allergic rhinitis, cause unspecified Allergic rhinitis - Asthma - Bloating - Carpal tunnel syndrome, bilateral 10/22/2016 - Constipation - Depressive disorder, not elsewhere classified - Eczema - Impaired fasting glucose 10/2015 - Insomnia Dr Fitzpatrick, on Bipap - Liver cyst 08/2016 benign - Lumbar radiculopathy, chronic L5/S1 - Migraine without aura 12/26/2006 - Mild carpal tunnel syndrome 04/2016 - OAB (overactive bladder) 10/31/2016 - OLGA (obstructive sleep apnea) Dr Fitzpatrick, on Bipap - Other chronic sinusitis - Perimenopausal 11/16/2012 - Psoriasis Gets injections every 3 months for this from Sameer Mata MD - Sensorineural hearing loss [place] Past Surgical History: PAST SURGICAL HISTORY Procedure Laterality Date - BREAST BIOPSY Right - CARPAL TUNNEL Bilateral 01/2017 - CATARACT SURGERY, COMPLEX right eye, left eye - COLONOSCOP W/ OR W/O BRSH SPEC 01/26/15 Colonoscopy - EXCISION NOSE POLYP(S),SIMPLE Nasal polypectomy - HYSTERECTOMY HX 2014 TRH with BSO - IANDD HEMATOMA 11/27/2017 incision and drainage of infected hematoma [facility] - PAST SURGICAL HISTORY OF 2015 bilateral foot bxs - PAST SURGICAL HISTORY OF 2015 nasal surgery/Turbinates - PAST SURGICAL HISTORY OF 04/2015 adnexal mass removal- benign - PAST SURGICAL HISTORY OF Bilateral 2011 bilateral breast reduction - PAST SURGICAL HISTORY OF mass removed from neck - PAST SURGICAL HISTORY OF 11/27/2017 IANDD infected hematoma upper back/posterior neck - REMOVAL OF TONSILS,<11 Y/O Tonsillectomy AND adenoidectomy - REPAIR OF NASAL SEPTUM Septoplasty - TORIC LENS left eye Family History: FAMILY HISTORY Problem Relation Age of Onset - Hypertension Mother - Hypertension Father - Stroke Maternal Grandfather - Alcohol/Drug Paternal Grandmother - Alcohol/Drug Paternal Grandfather - Hypertension Brother - Diabetes Maternal Aunt - Alcohol/Drug Paternal Aunt - Alcohol/Drug Paternal Uncle - Cancer Paternal Uncle - Stroke Maternal Aunt Social History:Social History Marital status: Spouse name: Inocente Years of education: 14 Number of children: 0 Occupational History Occupation Employer Comment [employer] Social History Main Topics Smoking status: Never Smoker Smokeless tobacco: Never Used Alcohol use: No Drug use: No Sexual activity: Yes Partners with: Male Social History Narrative 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 albuterol (PROVENTIL) 2.5 mg /3 mL (0.083 %) nebulizer solution Use 3 mL via nebulizer every 4 hours as needed for Wheezing/Shortness of Breath. Use over 5-15minutes. topiramate (TOPAMAX) 25 mg tablet Take 1 tablet by mouth twice daily. FLUoxetine HCl (PROZAC) 40 mg capsule TAKE ONE CAPSULE BY MOUTH ONCE DAILY MYRBETRIQ 25 mg Tb24 TAKE ONE TABLET BY MOUTH ONCE DAILY mirtazapine (REMERON) 30 mg tablet Take 30 mg by mouth daily at bedtime. LINZESS 290 mcg cap TAKE ONE CAPSULE BY MOUTH ONCE DAILY fluticasone (FLONASE) 50 mcg/actuation nasal spray Use 2 Sprays in each nostril once daily. Rinse mouth after use. estrogens conjugated (PREMARIN) 0.9 mg tablet Take 1 tablet by mouth once daily. pregabalin (LYRICA) 100 mg capsule Take 100 mg by mouth three times daily. buPROPion SR (ZYBAN SR; WELLBUTRIN SR) 150 mg 12 hr tablet Take 1 tablet by mouth twice daily. albuterol HFA (VENTOLIN HFA) 90 mcg/actuation inhaler Inhale 2 Puffs as instructed every 4 hours as needed for Wheezing/Shortness of Breath. diclofenac, EC, (VOLTAREN) 75 mg EC tablet Take 1 tablet by mouth twice daily. For pain/inflammation. Take with food. PER DR. MALONE diclofenac sodium (VOLTAREN) 1 % topical gel Apply to affected area four times daily. PER DR. MALONE baclofen (LIORESAL) 10 mg tablet Take 1 tablet by mouth twice daily. (Patient taking differently: Take 10 mg by mouth three times daily.) TENS Units malika 1 Device as needed. Cholecalciferol, Vitamin D3, 5,000 unit tab Take 5,000 Units by mouth once daily. cyanocobalamin (VITAMIN B-12) 1,000 mcg tab Take 1,000 mcg by mouth once daily. Docusate Sodium 250 mg capsule Take 250 mg by mouth once daily. metoprolol tartrate, short acting, (LOPRESSOR) 25 mg tablet Take 25 mg by mouth twice daily. guselkumab (TREMFYA) 100 mg/mL syrg Inject subcutaneously. naltrexone-bupropion (CONTRAVE) 8-90 mg TbER Take 1 tablet by mouth as directed. 2 tablets PO bid clobetasol (TEMOVATE) 0.05 % cream Apply to affected area twice daily. HYDROcodone-acetaminophen (NORCO) 5-325 mg per tablet Take 1 tablet by mouth every 6 hours as needed for Pain. For post op pain per Dr. Velasquez Fill Date: 05/26/18 COMPOUNDED PRESCRIPTION Aqua Therapy DX: E66.01; M50.30; M51.36 COMPOUNDED PRESCRIPTION Consult pulmonary rehab meclizine (ANTIVERT) 12.5 mg tab Take 1-2 tablets by mouth twice daily as needed (dizziness). COMPOUNDED PRESCRIPTION Order: cock up splints (2)Dx: carpal tunnel syndrome bilateral No current facility-administered medications for this visit. Allergies: Dust; Nabumetone; Seasonal Allergies; Smoke; Thimerisol [Thimerosal] ROS: General (negative for fatigue, malaise, weight loss/gain) HEENT (negative for headache, earache, recent vision changes, sinus pain, sore throat) Respiratory (no recent shortness of breath, hemoptysis) CV (negative for chest tightness, palpitations) Musculoskeletal (see HPI) Psych (no depression, anxiety) REFERRING PHYSICIAN: Ms. Gay Coleman was referred to wi for consultation by the following physician. This consultation note will be sent to the following physician by either mail or electronic medical record. Everton Acevedo, DO [address] [facility] [address] Everton Acevedo, [address] [facility] [address] This note was partially generated using [employer] voice recognition system, and there may be some incorrect words, spellings, and punctuation that were not noted in checking the note before saving. Canelo Hill MD Referring Provider: EVERTON ACEVEDO [[id number]] Allergies As of Date: 09/10/2018 Noted Allergy Reaction DUST 12/26/2006 NABUMETONE 10/04/2014 8 - GI Upset SEASONAL ALLERGIES 06/19/2015 14 - Other: See Comments SMOKE 12/26/2006 THIMERISOL (THIMEROSAL) 01/09/2016 5 - Intolerance Date Reviewed: 09/10/2018 Reviewed by: Canelo Hill - Fully Assessed Reason for Visit: Established Patient [175] Cmt: Right knee pain, xray- 05/30/18, last seen 12/24/16 s/p b/l CTR (11/08/16) Primary Visit Diagnosis:Acute pain of right knee [M25.561] Other Visit Diagnosis:Patellar tendinitis of right knee [M76.51] Order(s):CONSULT TO PHYSICAL THERAPY [9032] Order #: [id number]: 1 Prescriptions as of 09/10/2018 Sig: BUDESONIDE-FORMOTEROL HFA 80 * Inhale 2 Puffs as instructed * ALBUTEROL SULFATE 2.5 MG/3 ML* Use 3 mL via nebulizer every * TOPIRAMATE 25 MG TABLET Take 1 tablet by mouth twice * FLUOXETINE 40 MG CAPSULE TAKE ONE CAPSULE BY MOUTH ONC* MYRBETRIQ 25 MG TABLET,EXTEND* TAKE ONE TABLET BY MOUTH ONCE* MIRTAZAPINE 30 MG TABLET Take 30 mg by mouth daily at * X LINZESS 290 MCG CAPSULE TAKE ONE CAPSULE BY MOUTH ONC* FLUTICASONE 50 MCG/ACTUATION * Use 2 Sprays in each nostril * CONJUGATED ESTROGENS 0.9 MG T* Take 1 tablet by mouth once d* PREGABALIN 100 MG CAPSULE Take 100 mg by mouth three ti* X BUPROPION HCL SR 150 MG TABLE* Take 1 tablet by mouth twice * ALBUTEROL SULFATE HFA 90 MCG/* Inhale 2 Puffs as instructed * DICLOFENAC SODIUM 75 MG TABLE* Take 1 tablet by mouth twice * DICLOFENAC 1 % TOPICAL GEL Apply to affected area four * BACLOFEN 10 MG TABLET Take 1 tablet by mouth twice * Patient taking differently: Take 10 mg by mouth three justino* TRANSCUTANEOUS ELECTRICAL NER* 1 Device as needed. CHOLECALCIFEROL (VITAMIN D3) * Take 5,000 Units by mouth onc* CYANOCOBALAMIN (VIT B-12) 1,0* Take 1,000 mcg by mouth once * DOCUSATE SODIUM 250 MG CAPSULE Take 250 mg by mouth once sudhakar* METOPROLOL TARTRATE 25 MG TAB* Take 25 mg by mouth twice sudhakar* GUSELKUMAB 100 MG/ML SUBCUTAN* Inject subcutaneously. NALTREXONE 8 MG-BUPROPION 90 * Take 1 tablet by mouth as dir* CLOBETASOL 0.05 % TOPICAL CRE* Apply to affected area twice * HYDROCODONE 5 MG-ACETAMINOPHE* Take 1 tablet by mouth every * COMPOUNDED PRESCRIPTION Aqua Therapy DX: E66.01; M5* COMPOUNDED PRESCRIPTION Consult pulmonary rehab MECLIZINE 12.5 MG TABLET Take 1-2 tablets by mouth twi* COMPOUNDED PRESCRIPTION Order: cock up splints (2) D* Medication notes this encounter METOPROLOL TARTRATE 25 MG TABLET >> Eden Brown, RN, RN 09/10/2018 12:49 PM >> EDEN BROWN Sep 10, 2018 12:49 PM Not taking Problem List As Of Date 09/10/2018 Noted Resolved Migraine without aura [346.1] INVALID FOR*07/28/2017 Dysthymia [F34.1] INVALID FOR* Perimenopausal [N95.1] INVALID FOR*07/28/2017 Breast hypertrophy [N62] INVALID FOR* Bloating [R14.0] Constipation [K59.00] Adnexal mass [N94.9] INVALID FOR*10/31/2016 Flatulence, eructation, and gas pain [R14.3, R1*INVALID FOR*01/26/2015 Unspecified constipation [K59.00] INVALID FOR*01/26/2015 Midline low back pain without sciatica [M54.5] INVALID FOR* Intervertebral disc disorder with radiculopathy*INVALID FOR* DDD (degenerative disc disease), lumbar [M51.36]INVALID FOR* Cervical disc disorder with radiculopathy [M50.*INVALID FOR* DDD (degenerative disc disease), cervical [M50.*INVALID FOR* Carpal tunnel syndrome, bilateral [G56.03] INVALID FOR*07/28/2017 Asthma [J45.909] INVALID FOR*01/20/2018 OLGA (obstructive sleep apnea) [G47.33] INVALID FOR* More... Psoriasis [L40.9] INVALID FOR* OAB (overactive bladder) [N32.81] INVALID FOR* Impaired fasting glucose [R73.01] INVALID FOR* Exercise-induced asthma [J45.990] INVALID FOR* Obesity, Class III, BMI 40-49.9 (morbid obesity*INVALID FOR* Irritable bowel syndrome with constipation [K58*INVALID FOR* ANDREW (generalized anxiety disorder) [F41.1] INVALID FOR* Neck mass [R22.1] INVALID FOR* Weakness of both legs [R29.898] INVALID FOR* Herniated nucleus pulposus, L5-S1 [M51.27] INVALID FOR* S/P foot surgery, left [Z98.890] INVALID FOR* Foot pain, left [M79.672] INVALID FOR* Osteoarthritis of right knee [M17.11] INVALID FOR* Acute pain of right knee [M25.561] INVALID FOR* Encounter Status:Closed by CANELO HILL MD on 10/09/18 PROGRESS Observed: 09/08/2018 Status: COMPLETED Source: [place] 2:56 PM [facility] REPOSITORY HNO ID: [id number] Author: Ehsan Sterling Service: (none) Author Type: Psychologist Type: Progress Notes Filed: 09/08/2018 3:03 PM Note Text: [facility] Progress Note Gay Coleman 09/01/2018 [id number] Provider: Ehsan Vasquez PSYD CPT Code: 17669 Psychotherapy 38-52 minutes Time: Approximately 45 minutes was spent in therapy. Parties Present: Patient Patient Presentation/Concerns: Queenie indicated that she is had a conflict with her mother over her lack of support during her recovery. She states trying to focus on the present and on her . Queenie indicated that she is still in a lot of pain and is still had several treatments ahead. The pain and emotional conflict continue to lead to emotional eating. Discussed using tools that have been successful in the past. Mental Status: Mood: neutral Affect: mood-congruent Thoughts/Associations:goal directed Suicidal/Homicidal Ideation: None expressed or evidenced Other Observations: None Therapy Focus Mood/affect regulation MEDICATIONS: Per medical record: Current Outpatient Prescriptions: budesonide-formoterol (SYMBICORT) 80-4.5 mcg/actuation inhaler Inhale 2 Puffs as instructed twice daily. albuterol (PROVENTIL) 2.5 mg /3 mL (0.083 %) nebulizer solution Use 3 mL via nebulizer every 4 hours as needed for Wheezing/Shortness of Breath. Use over 5-15minutes. topiramate (TOPAMAX) 25 mg tablet Take 1 tablet by mouth twice daily. FLUoxetine HCl (PROZAC) 40 mg capsule TAKE ONE CAPSULE BY MOUTH ONCE DAILY MYRBETRIQ 25 mg Tb24 TAKE ONE TABLET BY MOUTH ONCE DAILY metoprolol tartrate, short acting, (LOPRESSOR) 25 mg tablet Take 25 mg by mouth twice daily. mirtazapine (REMERON) 30 mg tablet Take 30 mg by mouth daily at bedtime. guselkumab (TREMFYA) 100 mg/mL syrg Inject subcutaneously. naltrexone-bupropion (CONTRAVE) 8-90 mg TbER Take 1 tablet by mouth as directed. 2 tablets PO bid clobetasol (TEMOVATE) 0.05 % cream Apply to affected area twice daily. HYDROcodone-acetaminophen (NORCO) 5-325 mg per tablet Take 1 tablet by mouth every 6 hours as needed for Pain. For post op pain per Dr. Velasquez Fill Date: 05/26/18 LINZESS 290 mcg cap TAKE ONE CAPSULE BY MOUTH ONCE DAILY fluticasone (FLONASE) 50 mcg/actuation nasal spray Use 2 Sprays in each nostril once daily. Rinse mouth after use. COMPOUNDED PRESCRIPTION Aqua Therapy DX: E66.01; M50.30; M51.36 COMPOUNDED PRESCRIPTION Consult pulmonary rehab estrogens conjugated (PREMARIN) 0.9 mg tablet Take 1 tablet by mouth once daily. pregabalin (LYRICA) 100 mg capsule Take 100 mg by mouth three times daily. buPROPion SR (ZYBAN SR; WELLBUTRIN SR) 150 mg 12 hr tablet Take 1 tablet by mouth twice daily. meclizine (ANTIVERT) 12.5 mg tab Take 1-2 tablets by mouth twice daily as needed (dizziness). albuterol HFA (VENTOLIN HFA) 90 mcg/actuation inhaler Inhale 2 Puffs as instructed every 4 hours as needed for Wheezing/Shortness of Breath. diclofenac, EC, (VOLTAREN) 75 mg EC tablet Take 1 tablet by mouth twice daily. For pain/inflammation. Take with food. PER DR. MALONE diclofenac sodium (VOLTAREN) 1 % topical gel Apply to affected area four times daily. PER DR. MALONE baclofen (LIORESAL) 10 mg tablet Take 1 tablet by mouth twice daily. (Patient taking differently: Take 10 mg by mouth three times daily.) TENS Units malika 1 Device as needed. COMPOUNDED PRESCRIPTION Order: cock up splints (2)Dx: carpal tunnel syndrome bilateral Cholecalciferol, Vitamin D3, 5,000 unit tab Take 5,000 Units by mouth once daily. cyanocobalamin (VITAMIN B-12) 1,000 mcg tab Take 1,000 mcg by mouth once daily. Docusate Sodium 250 mg capsule Take 250 mg by mouth once daily. No current facility-administered medications for this visit. Psychiatric Medication Issues: No change from previous appointment DIAGNOSIS: Depression Binge Eating Disorder Treatment Modality/Interventions: Cognitive Behavioral TREATMENT ASSESSMENT/PROGRESS: Stable TREATMENT PLAN/GOALS: Continue in therapy focusing on affect management, reducing binge eating with DBT and CBT skills. Next appointment: 2 weeks Ehsan Vasquez PSYD PROGRESS Observed: 08/31/2018 Status: COMPLETED Source: [place] 7:28 AM [facility] [place] REPOSITORY HNO ID: [id number] Author: Everton Acevedo Service: (none) Author Type: Physician Type: Progress Notes Filed: 08/31/2018 7:34 AM Note Text: GARRY Coleman is a 52 year old female who presents to the office for follow up. HPI: Seen in office on 07/09/18, at at that time: Right >left knee pain, increased the last 1-2 months since use of the wheeled walker after her left foot injury and 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 She had xrays performed which shows medial compartment of knee narrowing and osteoarthritis changes. She is asking for knee joint injection to help with pain, no skin changes but does get swelling in knee after prolonged walking ? Is still struggling with low back pain and radiation b/l thighs and lower legs, intermittently changes from left to right, tingling in thighs and b/l leg weakness. Has been going to PHYSICAL THERAPY without much improvement, feels off balance with her gait and low back is really bothering her the last few months, hasn't had recent MRI, hx of L5/S1 disc herniation, has appt locally with spine surgeon Dr. Bullard. No bowel or bladder changes She was given corticosteroid right knee injection Currently Right knee arthritis, states that the corticosteroid injection only gave her a few days of relief. Left foot pain, s/p surgery by Director Diabetes, still is having pain, surgery was a few months ago, she is concerned that it isn't going to get better Lumber disc bulging, has appt with Dr. Bullard upcoming, still is experiencing a lot of low back pain and radiation of pain into buttock and b/l leg weakness. She has been to PHYSICAL THERAPY several treatment courses without much relief. COPD, she is discouraged by this new concerning diagnosed, has appt to see Air Pollution Inspector upcoming, No hx of tobacco use but had a lot of 2nd hand exposure from grandparents in the past. She is using her Advair as prescribed. She is going to pulmonary rehab program as well now per her request PAST MEDICAL HISTORY Diagnosis Date - Allergic rhinitis, cause unspecified Allergic rhinitis - Asthma - Bloating - Carpal tunnel syndrome, bilateral 10/22/2016 - Constipation - Depressive disorder, not elsewhere classified - Eczema - Impaired fasting glucose 10/2015 - Insomnia Dr Fitzpatrick, on Bipap - Liver cyst 08/2016 benign - Lumbar radiculopathy, chronic L5/S1 - Migraine without aura 12/26/2006 - Mild carpal tunnel syndrome 04/2016 - OAB (overactive bladder) 10/31/2016 - OLGA (obstructive sleep apnea) Dr Fitzpatrick, on Bipap - Other chronic sinusitis - Perimenopausal 11/16/2012 - Psoriasis Gets injections every 3 months for this from Sameer Mata MD - Sensorineural hearing loss [place] PAST SURGICAL HISTORY Procedure Laterality Date - BREAST BIOPSY Right - CARPAL TUNNEL Bilateral 01/2017 - CATARACT SURGERY, COMPLEX right eye, left eye - COLONOSCOP W/ OR W/O BRSH SPEC 01/26/15 Colonoscopy - EXCISION NOSE POLYP(S),SIMPLE Nasal polypectomy - HYSTERECTOMY HX 2014 TRH with BSO - IANDD HEMATOMA 11/27/2017 incision and drainage of infected hematoma [facility] - PAST SURGICAL HISTORY OF 2014 bilateral foot bxs - PAST SURGICAL HISTORY OF 2014 nasal surgery/Turbinates - PAST SURGICAL HISTORY OF 04/2015 adnexal mass removal- benign - PAST SURGICAL HISTORY OF Bilateral 2010 bilateral breast reduction - PAST SURGICAL HISTORY OF mass removed from neck - PAST SURGICAL HISTORY OF 11/27/2017 IANDD infected hematoma upper back/posterior neck - REMOVAL OF TONSILS,<11 Y/O Tonsillectomy AND adenoidectomy - REPAIR OF NASAL SEPTUM Septoplasty - TORIC LENS left eye Current Outpatient Prescriptions: albuterol (PROVENTIL) 2.5 mg /3 mL (0.083 %) nebulizer solution Use 3 mL via nebulizer every 4 hours as needed for Wheezing/Shortness of Breath. Use over 5-15minutes. FLUoxetine HCl (PROZAC) 40 mg capsule TAKE ONE CAPSULE BY MOUTH ONCE DAILY MYRBETRIQ 25 mg Tb24 TAKE ONE TABLET BY MOUTH ONCE DAILY metoprolol tartrate, short acting, (LOPRESSOR) 25 mg tablet Take 25 mg by mouth twice daily. guselkumab (TREMFYA) 100 mg/mL syrg Inject subcutaneously. clobetasol (TEMOVATE) 0.05 % cream Apply to affected area twice daily. LINZESS 290 mcg cap TAKE ONE CAPSULE BY MOUTH ONCE DAILY fluticasone (FLONASE) 50 mcg/actuation nasal spray Use 2 Sprays in each nostril once daily. Rinse mouth after use. ADVAIR DISKUS 250-50 mcg/dose dsdv INHALE ONE DOSE BY MOUTH TWICE DAILY. *RINSE AND GARGLE MOUTH WITH WATER AFTER USE* estrogens conjugated (PREMARIN) 0.9 mg tablet Take 1 tablet by mouth once daily. pregabalin (LYRICA) 100 mg capsule Take 100 mg by mouth three times daily. buPROPion SR (ZYBAN SR; WELLBUTRIN SR) 150 mg 12 hr tablet Take 1 tablet by mouth twice daily. albuterol HFA (VENTOLIN HFA) 90 mcg/actuation inhaler Inhale 2 Puffs as instructed every 4 hours as needed for Wheezing/Shortness of Breath. diclofenac, EC, (VOLTAREN) 75 mg EC tablet Take 1 tablet by mouth twice daily. For pain/inflammation. Take with food. PER DR. MALONE diclofenac sodium (VOLTAREN) 1 % topical gel Apply to affected area four times daily. PER DR. MALONE baclofen (LIORESAL) 10 mg tablet Take 1 tablet by mouth twice daily. (Patient taking differently: Take 10 mg by mouth three times daily.) TENS Units malika 1 Device as needed. COMPOUNDED PRESCRIPTION Order: cock up splints (2)Dx: carpal tunnel syndrome bilateral Cholecalciferol, Vitamin D3, 5,000 unit tab Take 5,000 Units by mouth once daily. cyanocobalamin (VITAMIN B-12) 1,000 mcg tab Take 1,000 mcg by mouth once daily. Docusate Sodium 250 mg capsule Take 250 mg by mouth once daily. topiramate (TOPAMAX) 25 mg tablet Take 1 tablet by mouth twice daily. mirtazapine (REMERON) 30 mg tablet Take 30 mg by mouth daily at bedtime. naltrexone-bupropion (CONTRAVE) 8-90 mg TbER Take 1 tablet by mouth as directed. 2 tablets PO bid HYDROcodone-acetaminophen (NORCO) 5-325 mg per tablet Take 1 tablet by mouth every 6 hours as needed for Pain. For post op pain per Dr. Velasquez Fill Date: 05/26/18 COMPOUNDED PRESCRIPTION Aqua Therapy DX: E66.01; M50.30; M51.36 COMPOUNDED PRESCRIPTION Consult pulmonary rehab meclizine (ANTIVERT) 12.5 mg tab Take 1-2 tablets by mouth twice daily as needed (dizziness). No current facility-administered medications for this visit. 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 Uvula midline. Neck: No LAD, no thyromegaly, no meningismus. CV: RRR, no murmur Lungs: mildly diminished, scattered wheeze expiratory end, no distress, rare dry cough No edema + right knee joint line b/l TTP medial >lateral, no skin color changes Normal peripheral pulses Skin: No rashes, lesions, or wounds on exposed skin. Antalgic gait ASSESSMENT/PLAN: 1. Cough - ICD9: 786.2, ICD10: R05 (primary diagnosis) - rx as below, f/u with Pulm - ALBUTEROL SULFATE 2.5 MG/3 ML (0.083 %) SOLUTION FOR NEBULIZATION 2. SOB (shortness of breath) - ICD9: 786.05, ICD10: R06.02 - see above, consider trial of Spiriva or Tudorza if does have COPD - ALBUTEROL SULFATE 2.5 MG/3 ML (0.083 %) SOLUTION FOR NEBULIZATION 3. Wheezing - ICD9: 786.07, ICD10: R06.2 - ALBUTEROL SULFATE 2.5 MG/3 ML (0.083 %) SOLUTION FOR NEBULIZATION 4. Osteoarthritis of right knee, unspecified osteoarthritis type - ICD9: 715.96, ICD10: M17.11 - referral as below, no relief long lasting from corticosteroid injection - CONSULT TO ORTHOPAEDICS - PARKING FOR HANDICAPPED 5. Foot pain, left - ICD9: 729.5, ICD10: M79.672 - f/u with Director Diabetes, recently had surgery - PARKING FOR HANDICAPPED 6. S/P foot surgery, left - ICD9: V45.89, ICD10: Z98.890 - PARKING FOR HANDICAPPED 7. Chronic pain of right knee - ICD9: 719.46, 338.29, ICD10: M25.561, G89.29 - see abo - PARKING FOR HANDICAPPED 8. Headache disorder - ICD9: 784.0, ICD10: R51 - TOPIRAMATE 25 MG TABLET Everton Acevedo DO Return if no improvement. Follow up with Everton Acevedo DO. Discussed risks, benefits, alternatives, and potential side effects of medications. Patient/Guardian expressed understanding and agreed with the plan. See patient instructions. Everton Acevedo DO [address] [place] [address] CNOV Observed: 08/28/2018 Status: COMPLETED Source: [place] 11:20 AM [facility] REPOSITORY Office Visit (FAMPWS) GAY COLEMAN ([id number]) 1965 F Date Time Provider Department 08/28/18 11:20 AM [facility]ON [facility]ED[facility] During your visit today, we recorded the following information about you: Temperature Pulse Respiration Blood pressure 98.1 degrees 64/minute 20/minute 126/80 Weight 108 kg Everton Acevedo DO 08/31/2018 7:34 AM Signed CC Gay Coleman is a 52 year old female who presents to the office for follow up. HPI: Seen in office on 07/09/18, at at that time: Right >left knee pain, increased the last 1-2 months since use of the wheeled walker after her left foot injury and 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 She had xrays performed which shows medial compartment of knee narrowing and osteoarthritis changes. She is asking for knee joint injection to help with pain, no skin changes but does get swelling in knee after prolonged walking ? Is still struggling with low back pain and radiation b/l thighs and lower legs, intermittently changes from left to right, tingling in thighs and b/l leg weakness. Has been going to PHYSICAL THERAPY without much improvement, feels off balance with her gait and low back is really bothering her the last few months, hasn't had recent MRI, hx of L5/S1 disc herniation, has appt locally with spine surgeon Dr. Bullard. No bowel or bladder changes She was given corticosteroid right knee injection Currently Right knee arthritis, states that the corticosteroid injection only gave her a few days of relief. Left foot pain, s/p surgery by Director Diabetes, still is having pain, surgery was a few months ago, she is concerned that it isn't going to get better Lumber disc bulging, has appt with Dr. Bullard upcoming, still is experiencing a lot of low back pain and radiation of pain into buttock and b/l leg weakness. She has been to PHYSICAL THERAPY several treatment courses without much relief. COPD, she is discouraged by this new concerning diagnosed, has appt to see Air Pollution Inspector upcoming, No hx of tobacco use but had a lot of 2nd hand exposure from grandparents in the past. She is using her Advair as prescribed. She is going to pulmonary rehab program as well now per her request PAST MEDICAL HISTORY Diagnosis Date - Allergic rhinitis, cause unspecified Allergic rhinitis - Asthma - Bloating - Carpal tunnel syndrome, bilateral 10/22/2016 - Constipation - Depressive disorder, not elsewhere classified - Eczema - Impaired fasting glucose 10/2015 - Insomnia Dr Fitzpatrick, on Bipap - Liver cyst 08/2016 benign - Lumbar radiculopathy, chronic L5/S1 - Migraine without aura 12/26/2006 - Mild carpal tunnel syndrome 04/2016 - OAB (overactive bladder) 10/31/2016 - OLGA (obstructive sleep apnea) Dr Fitzpatrick, on Bipap - Other chronic sinusitis - Perimenopausal 11/16/2012 - Psoriasis Gets injections every 3 months for this from Sameer Mata MD - Sensorineural hearing loss [place] PAST SURGICAL HISTORY Procedure Laterality Date - BREAST BIOPSY Right - CARPAL TUNNEL Bilateral 01/2017 - CATARACT SURGERY, COMPLEX right eye, left eye - COLONOSCOP W/ OR W/O BRSH SPEC 01/26/15 Colonoscopy - EXCISION NOSE POLYP(S),SIMPLE Nasal polypectomy - HYSTERECTOMY HX 2014 TRH with BSO - IANDD HEMATOMA 11/27/2017 incision and drainage of infected hematoma [facility] - PAST SURGICAL HISTORY OF 2014 bilateral foot bxs - PAST SURGICAL HISTORY OF 2015 nasal surgery/Turbinates - PAST SURGICAL HISTORY OF 04/2015 adnexal mass removal- benign - PAST SURGICAL HISTORY OF Bilateral 2011 bilateral breast reduction - PAST SURGICAL HISTORY OF mass removed from neck - PAST SURGICAL HISTORY OF 11/27/2017 IANDD infected hematoma upper back/posterior neck - REMOVAL OF TONSILS,<11 Y/O Tonsillectomy AND adenoidectomy - REPAIR OF NASAL SEPTUM Septoplasty - TORIC LENS left eye Current Outpatient Prescriptions: albuterol (PROVENTIL) 2.5 mg /3 mL (0.083 %) nebulizer solution Use 3 mL via nebulizer every 4 hours as needed for Wheezing/Shortness of Breath. Use over 5-15minutes. FLUoxetine HCl (PROZAC) 40 mg capsule TAKE ONE CAPSULE BY MOUTH ONCE DAILY MYRBETRIQ 25 mg Tb24 TAKE ONE TABLET BY MOUTH ONCE DAILY metoprolol tartrate, short acting, (LOPRESSOR) 25 mg tablet Take 25 mg by mouth twice daily. guselkumab (TREMFYA) 100 mg/mL syrg Inject subcutaneously. clobetasol (TEMOVATE) 0.05 % cream Apply to affected area twice daily. LINZESS 290 mcg cap TAKE ONE CAPSULE BY MOUTH ONCE DAILY fluticasone (FLONASE) 50 mcg/actuation nasal spray Use 2 Sprays in each nostril once daily. Rinse mouth after use. ADVAIR DISKUS 250-50 mcg/dose dsdv INHALE ONE DOSE BY MOUTH TWICE DAILY. *RINSE AND GARGLE MOUTH WITH WATER AFTER USE* estrogens conjugated (PREMARIN) 0.9 mg tablet Take 1 tablet by mouth once daily. pregabalin (LYRICA) 100 mg capsule Take 100 mg by mouth three times daily. buPROPion SR (ZYBAN SR; WELLBUTRIN SR) 150 mg 12 hr tablet Take 1 tablet by mouth twice daily. albuterol HFA (VENTOLIN HFA) 90 mcg/actuation inhaler Inhale 2 Puffs as instructed every 4 hours as needed for Wheezing/Shortness of Breath. diclofenac, EC, (VOLTAREN) 75 mg EC tablet Take 1 tablet by mouth twice daily. For pain/inflammation. Take with food. PER DR. MALONE diclofenac sodium (VOLTAREN) 1 % topical gel Apply to affected area four times daily. PER DR. MALONE baclofen (LIORESAL) 10 mg tablet Take 1 tablet by mouth twice daily. (Patient taking differently: Take 10 mg by mouth three times daily.) TENS Units malika 1 Device as needed. COMPOUNDED PRESCRIPTION Order: cock up splints (2)Dx: carpal tunnel syndrome bilateral Cholecalciferol, Vitamin D3, 5,000 unit tab Take 5,000 Units by mouth once daily. cyanocobalamin (VITAMIN B-12) 1,000 mcg tab Take 1,000 mcg by mouth once daily. Docusate Sodium 250 mg capsule Take 250 mg by mouth once daily. topiramate (TOPAMAX) 25 mg tablet Take 1 tablet by mouth twice daily. mirtazapine (REMERON) 30 mg tablet Take 30 mg by mouth daily at bedtime. naltrexone-bupropion (CONTRAVE) 8-90 mg TbER Take 1 tablet by mouth as directed. 2 tablets PO bid HYDROcodone-acetaminophen (NORCO) 5-325 mg per tablet Take 1 tablet by mouth every 6 hours as needed for Pain. For post op pain per Dr. Velasquez Fill Date: 05/26/18 COMPOUNDED PRESCRIPTION Aqua Therapy DX: E66.01; M50.30; M51.36 COMPOUNDED PRESCRIPTION Consult pulmonary rehab meclizine (ANTIVERT) 12.5 mg tab Take 1-2 tablets by mouth twice daily as needed (dizziness). No current facility-administered medications for this visit. 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 Uvula midline. Neck: No LAD, no thyromegaly, no meningismus. CV: RRR, no murmur Lungs: mildly diminished, scattered wheeze expiratory end, no distress, rare dry cough No edema + right knee joint line b/l TTP medial >lateral, no skin color changes Normal peripheral pulses Skin: No rashes, lesions, or wounds on exposed skin. Antalgic gait ASSESSMENT/PLAN: 1. Cough - ICD9: 786.2, ICD10: R05 (primary diagnosis) - rx as below, f/u with Pulm - ALBUTEROL SULFATE 2.5 MG/3 ML (0.083 %) SOLUTION FOR NEBULIZATION 2. SOB (shortness of breath) - ICD9: 786.05, ICD10: R06.02 - see above, consider trial of Spiriva or Tudorza if does have COPD - ALBUTEROL SULFATE 2.5 MG/3 ML (0.083 %) SOLUTION FOR NEBULIZATION 3. Wheezing - ICD9: 786.07, ICD10: R06.2 - ALBUTEROL SULFATE 2.5 MG/3 ML (0.083 %) SOLUTION FOR NEBULIZATION 4. Osteoarthritis of right knee, unspecified osteoarthritis type - ICD9: 715.96, ICD10: M17.11 - referral as below, no relief long lasting from corticosteroid injection - CONSULT TO ORTHOPAEDICS - PARKING FOR HANDICAPPED 5. Foot pain, left - ICD9: 729.5, ICD10: M79.672 - f/u with Director Diabetes, recently had surgery - PARKING FOR HANDICAPPED 6. S/P foot surgery, left - ICD9: V45.89, ICD10: Z98.890 - PARKING FOR HANDICAPPED 7. Chronic pain of right knee - ICD9: 719.46, 338.29, ICD10: M25.561, G89.29 - see abo - PARKING FOR HANDICAPPED 8. Headache disorder - ICD9: 784.0, ICD10: R51 - TOPIRAMATE 25 MG TABLET Everton Acevedo DO Return if no improvement. Follow up with Everton Acevedo DO. Discussed risks, benefits, alternatives, and potential side effects of medications. Patient/Guardian expressed understanding and agreed with the plan. See patient instructions. Everton Acevedo DO [address] [place] [address] Referring Provider: KAY VILLALOBOS ([facility]) [[id number]] Allergies As of Date: 08/28/2018 Noted Allergy Reaction DUST 12/26/2006 NABUMETONE 10/04/2014 8 - GI Upset SEASONAL ALLERGIES 06/19/2015 14 - Other: See Comments SMOKE 12/26/2006 THIMERISOL (THIMEROSAL) 01/09/2016 5 - Intolerance Date Reviewed: 08/28/2018 Reviewed by: Ehsan Laboy LPN - Fully Assessed Reason for Visit: Follow Up [171] Primary Visit Diagnosis:Cough [R05] Other Visit Diagnoses:SOB (shortness of breath) [R06.02] Wheezing [R06.2] Osteoarthritis of right knee, unspecified osteoarthritis type [M17.11] Foot pain, left [M79.672] S/P foot surgery, left [Z98.890] Chronic pain of right knee [M25.561, G89.29] Headache disorder [R51] Order(s):albuterol (PROVENTIL) 2.5 mg /3 mL (0.083 %) nebulizer solutionUse 3 mL via nebulizer every 4 hours as needed for Wheezing/Shortness of Breath. Use over 5-15minutes.Disp: 180 VialRfl: 3 CONSULT TO ORTHOPAEDICS [9083] Order #: [id number]: 1 PARKING FOR HANDICAPPED [4762812] Order #: [id number] topiramate (TOPAMAX) 25 mg tabletTake 1 tablet by mouth twice daily.Disp: 60 tabletRfl: 3 Prescriptions as of 08/28/2018 Sig: ALBUTEROL SULFATE 2.5 MG/3 ML* Use 3 mL via nebulizer every * FLUOXETINE 40 MG CAPSULE TAKE ONE CAPSULE BY MOUTH ONC* MYRBETRIQ 25 MG TABLET,EXTEND* TAKE ONE TABLET BY MOUTH ONCE* METOPROLOL TARTRATE 25 MG TAB* Take 25 mg by mouth twice sudhakar* GUSELKUMAB 100 MG/ML SUBCUTAN* Inject subcutaneously. CLOBETASOL 0.05 % TOPICAL CRE* Apply to affected area twice * LINZESS 290 MCG CAPSULE TAKE ONE CAPSULE BY MOUTH ONC* FLUTICASONE 50 MCG/ACTUATION * Use 2 Sprays in each nostril * ADVAIR DISKUS 250 MCG-50 MCG/* INHALE ONE DOSE BY MOUTH TWIC* CONJUGATED ESTROGENS 0.9 MG T* Take 1 tablet by mouth once d* PREGABALIN 100 MG CAPSULE Take 100 mg by mouth three ti* BUPROPION HCL SR 150 MG TABLE* Take 1 tablet by mouth twice * ALBUTEROL SULFATE HFA 90 MCG/* Inhale 2 Puffs as instructed * DICLOFENAC SODIUM 75 MG TABLE* Take 1 tablet by mouth twice * DICLOFENAC 1 % TOPICAL GEL Apply to affected area four * BACLOFEN 10 MG TABLET Take 1 tablet by mouth twice * Patient taking differently: Take 10 mg by mouth three justino* TRANSCUTANEOUS ELECTRICAL NER* 1 Device as needed. COMPOUNDED PRESCRIPTION Order: cock up splints (2) D* CHOLECALCIFEROL (VITAMIN D3) * Take 5,000 Units by mouth onc* CYANOCOBALAMIN (VIT B-12) 1,0* Take 1,000 mcg by mouth once * DOCUSATE SODIUM 250 MG CAPSULE Take 250 mg by mouth once sudhakar* TOPIRAMATE 25 MG TABLET Take 1 tablet by mouth twice * MIRTAZAPINE 30 MG TABLET Take 30 mg by mouth daily at * NALTREXONE 8 MG-BUPROPION 90 * Take 1 tablet by mouth as dir* HYDROCODONE 5 MG-ACETAMINOPHE* Take 1 tablet by mouth every * COMPOUNDED PRESCRIPTION Aqua Therapy DX: E66.01; M5* COMPOUNDED PRESCRIPTION Consult pulmonary rehab MECLIZINE 12.5 MG TABLET Take 1-2 tablets by mouth twi* Medication notes this encounter NALTREXONE 8 MG-BUPROPION 90 MG TABLET,EXTENDED RELEASE >> Ehsan Laboy LPN 08/28/2018 11:29 AM >> EHSAN LABOY LPN FriAug 28, 2018 11:29 AM Finished Problem List As Of Date 08/28/2018 Noted Resolved Migraine without aura [346.1] INVALID FOR*07/28/2017 Dysthymia [F34.1] INVALID FOR* Perimenopausal [N95.1] INVALID FOR*07/28/2017 Breast hypertrophy [N62] INVALID FOR* Bloating [R14.0] Constipation [K59.00] Adnexal mass [N94.9] INVALID FOR*10/31/2016 Flatulence, eructation, and gas pain [R14.3, R1*INVALID FOR*01/26/2015 Unspecified constipation [K59.00] INVALID FOR*01/26/2015 Midline low back pain without sciatica [M54.5] INVALID FOR* Intervertebral disc disorder with radiculopathy*INVALID FOR* DDD (degenerative disc disease), lumbar [M51.36]INVALID FOR* Cervical disc disorder with radiculopathy [M50.*INVALID FOR* DDD (degenerative disc disease), cervical [M50.*INVALID FOR* Carpal tunnel syndrome, bilateral [G56.03] INVALID FOR*07/28/2017 Asthma [J45.909] INVALID FOR*01/20/2018 OLGA (obstructive sleep apnea) [G47.33] INVALID FOR* More... Psoriasis [L40.9] INVALID FOR* OAB (overactive bladder) [N32.81] INVALID FOR* Impaired fasting glucose [R73.01] INVALID FOR* Exercise-induced asthma [J45.990] INVALID FOR* Obesity, Class III, BMI 40-49.9 (morbid obesity*INVALID FOR* Irritable bowel syndrome with constipation [K58*INVALID FOR* ANDREW (generalized anxiety disorder) [F41.1] INVALID FOR* Neck mass [R22.1] INVALID FOR* Weakness of both legs [R29.898] INVALID FOR* Herniated nucleus pulposus, L5-S1 [M51.27] INVALID FOR* S/P foot surgery, left [Z98.890] INVALID FOR* Foot pain, left [M79.672] INVALID FOR* Osteoarthritis of right knee [M17.11] INVALID FOR* Acute pain of right knee [M25.561] INVALID FOR* Prescriptions ordered this encounter Disp Refills Start End ALBUTEROL SULFATE 2.5 MG/3 ML (0.083* 180 * 3 08/28/2018 Route: NEBULIZATION Sig: Use 3 mL via nebulizer every 4 hours as needed for Wheezing/Shortness of Breath. Use over 5-15minutes. TOPIRAMATE 25 MG TABLET 60 t* 3 08/28/2018 Route: ORAL Sig: Take 1 tablet by mouth twice daily. Medications Discontinued During This Encounter albuterol (PROVENTIL) 2.5 mg /3 mL (* 180 * 3 07/28/2017 08/28/2018 Route: NEBULIZATION -UNSPEC Sig: Use 3 mL via nebulizer every 4 hours as needed for Wheezing/Shortness of Breath. Use over 5-15minutes. Disc: Reason for discontinue is not on file. 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 Medication reassessment: Yes Pt demonstrates correct technique timing for MDI, Yes Pt demonstrates correct technique timing for DPI, Yes Pt demonstrates correct technique timing for spacer - demonstrated proper use of spacer device - Bronchial Hygiene Bronchial Hygiene Plan: Yes Pt demonstrates correctly for effective cough, Yes Pt demo correct for improved hydration - patient drink water during exercise, Yes Pt demo correct for hand hygiene - properly uses hand washing techniques and hand boil off machine operator cloth Psychosocial - 30-Day - Assessment Reassessment: Practicing interventions Tobacco - 30-Day Assessment - Program Goals Tobacco Program Goals: Complete smoking cessation. Attend education classes. Improve Knowledge Test score - Stage of Change Stages of Change:: Action - Learning Barriers Learning Barriers: Participates in education - Family Support Do you have family support?: Yes - Tobacco Use Tobacco Use: Non-smoker Do you use smokeless tobacco?: No - Intervention Smoking Cessation Referral:: No Individual Education/Counseling:: No Education Schedule Given:: Yes - Education Gave Education Materials For:: Pulmonary Disease, Risk Factors, Breathing Techniques, Medical Compliance, Pulmonary A AND P, Exacerbation Signs AND Symptoms, Stress AND Relaxation Nutrition/Wt Mgmt - 30-Day - Weight Management Weight Assessment:: Wt stable Weight:: 234 lb 8 oz Weight Goals Progress:: Not progressing Patient Health Questionnaire 30-Day Re-eval Assessment 1. Little interest or pleasure in doing things: More than half the days 2. Feeling down, depressed, or hopeless: Nearly every day 3. Trouble falling or staying asleep, or sleeping too much: More than half the days 4. Feeling tired or having little energy: More than half the days 5. Poor appetite or overeating: More than half the days 6. Feeling bad about yourself -- or that you are a failure or have let yourself or your family down: Nearly every day 7. Trouble concentrating on things, such as reading the newspaper or watching television: Nearly every day 8. Moving or speaking so slowly that other people could have noticed. Or the opposite - being so fidgety or restless that you have been moving around a lot more than usual: Not at all 9. Thoughts that you would be better off , or of hurting yourself in some way: Not at all How difficult have these problems made it for you to do your work, take care of things at home, or get along with other people?: Somewhat difficult Total Score: 17 Self-Efficacy 30-Day Re-eval Assessment We would like to know how confident you are in doing certain activities. Please select your confidence level for:: Select your confidence level for the following using the scale 1-10 where 1 is not at all confident and 10 is totally confident. Your score is the average of all 6 responses. Fatigue: How confident are you that you can keep the fatigue caused by your disease from interfering with the things you want to do? Select Number: 8 Physical Discomfort or Pain: How confident are you that you can keep the physical discomfort or pain of your disease from interfering with the things you want to do? Select Number: 10 Emotional Distress: How confident are you that you can keep the emotional distress caused by your disease from interfering with the things you want to do? Select Number: 10 Other Symptoms or Health Problems: How confident are you that you can keep other symptoms or health problems from interfering with the things you want to do? Select Number: 9 Different Tasks and Activities: How confident are you that you can do the different tasks and activities needed to manage your health condition so as to reduce your need to see a doctor? Select Number: 10 Medication: How confident are you that you can do things other than just taking medication to reduce how much your illness affects your everyday life? Select Number: 10 Total Score:: 9 08/27/18 1332 <Electronically signed by Arturo Soler CRT, RCP, BS> Date Arturo Soler CRT, RCP, BS Outcome assessment reviewed. Exercise plan approved as documented. Treatment plan and goals support patient needs/abilities. Continue with current plan. I certify the patient demonstrates improvement and remains willing and capable of participation. the patient continues to benefit from pulmonary services/training. The patient may continue at current intensity, endurance and modality and progress per protocol. 08/27/18 180<Electronically signed by Luis Fernando Cassidy MD> Cosigner Signature: Date Luis Fernando Cassidy MD CC: Signed [place] - HISTORY AND Observed: 08/25/2018 Status: F Source: [facility] 1:30 PM [facility] REPOSITORY [facility] Pulmonary Rehab Reports [address] [place] [address] [place] - History AND Physical MR#: [id number] Acct: [id number] Name: GAY COLEMAN Rep #: [id number] : 1965 52 From: Arturo Soler CRT, RCP, BS PCP: Everton Cash DO History of Present Illness Arrival date:: 07/27/18 Arrival time:: 13:19 Date of Referral:: 07/08/18 Date of Evaluation: 07/27/18 Referring Physician: Dr. Everton Acevedo Primary Diagnosis: Asthma History of Present Illness: Patient is a 52 yr old female patient of Dr. Everton Acevedo who presents to pulmonary rehab today for her asthma. THe patient has had other medical issues to deal with and recently has become more short of breath with activities of daily living. mMRC Breathless Scale: When is the patient short of breath? Y/N Grade: Description of Breathlessness: Respiratory Problems: Yes: Limited Range of Motion, Fatigue, Able to Speak in Full Sentences, Anxiety, Dyspnea with Activity, Dyspnea Lying Down Flat No: Retain Secretions, Chest Pain, Wheezing, Dizziness, Ankle Swelling, Hoarseness, Cough with Secretions Home Medications: Home Medications Albuterol Aerosols [Ventolin Aerosols] 2.5 mg INHALATION Q6H PRN PRN 09/22/17 Albuterol Inhaler [Ventolin Hfa] 2 puff INHALATION Q4H PRN PRN 09/22/17 Baclofen [Lioresal] 10 mg PO TID 09/22/17 Calcium Carbonate/Vitamin D3 [Calcium 500-Vit D3 200 Tablet] 1 ea PO DAILY 09/22/17 Diclofenac Sodium 100 gm TP 4X/DAY 09/22/17 Diclofenac [Voltaren] 75 mg PO BIDCM 09/22/17 Econazole [Spectazole] 1 applic TOPICAL DAILY 09/22/17 Estrogens, Conjugated [Premarin] 0.9 mg PO DAILY 09/22/17 Fluoxetine [Prozac] 40 mg PO DAILY 09/22/17 Linaclotide [Linzess] 290 mcg PO DAILY 09/22/17 Mirabegron [Myrbetriq] 25 mg PO DAILY 09/22/17 Mirtazapine [Remeron] 22 mg PO QHS 09/22/17 Pregabalin [Lyrica] 100 mg PO TID 09/22/17 Pyridoxine HCl [Vitamin B-6] 100 mg PO DAILY 09/22/17 buPROPion SR [Wellbutrin SR (150mg tablets)] 150 mg PO BID 09/22/17 Fluticasone/Salmeterol [Advair 250/50 Mcg Diskus] 1 puff INHALATION BID 11/26/17 Docusate Sodium [Colace] 100 mg PO BID cap 11/29/17 Lactobacillus Combo No.11 [Probiotic] 1 ea PO DAILY #60 cap.sprink 11/29/17 Cholecalciferol (Vitamin D3) [Vitamin D3] 1,000 unit PO DAILY 03/18/18 Cyanocobalamin [Vitamin B12] 500 mcg PO DAILY@0800 03/18/18 guselkumab 100 mg/mL subcutaneous syringe 100 mg SC Q8W 07/23/18 metoprolol succinate ER 25 mg capsule sprinkle, ext. release 24 hr mg PO 07/23/18 Allergies/Adverse Reactions: Allergies nabumetone Allergy (Verified 07/23/18 14:48) Hives thimerosal Allergy (Verified 07/23/18 14:48) Other PER ALLERGY TESTING naproxen [From Naprosyn] Adverse Reaction (Verified 07/23/18 14:48) Other oxycodone HCl [From Percocet] Adverse Reaction (Verified 07/23/18 14:48) Other birds Allergy (Uncoded 07/23/18 14:48) Other molds Allergy (Uncoded 07/23/18 14:48) Other seasonal Allergy (Uncoded 07/23/18 14:48) Other - Secretions Thick:: No Thin:: No Cough:: No Hx of Sleep Apnea: Yes Do you snore loudly (louder than talking or can be heard through closed doors)?: Yes Do you often feel tired/ fatigued/ sleepy during daytime?: Yes Has anyone observed you stop breathing during sleep?: Yes History of Hypertension (for STOP score): No - Patient insomnia and OLGA and uses BiPaP at HS w/o oxygen STOP Results: Positive Medical Utilization Do you use a peak flow meter at home?: No Do you use a spacer device with your inhalers?: No Number of hospital visits in the last year?: 1 - 2-days surgery 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 Number of emergency room visits in the last year?: 0 Do you see your physician on a regular schedule?: Yes How often?: Sibilia 6 mo, PCP 3 mo Advanced Directives - Advanced Directives Power of Merchandising Coordinator: No Living Will: No Advance Directives Information Provided: Yes Advance Directives on File: No DNR Order?:: No - MOLST See MOLST form: No Past Medical History Medical History: Past Medical History (Last Updated 11/10/17 @ 14:38 by Bonilla Alvarez MD) Lipoma of back (Chronic) D17.1 8 cm lipoma upper back/posterior neck Postoperative seroma of subcutaneous tissue after dermatologic procedure (Acute) L76.33 Arthritis M19.90 Asthma J45.909 BREAST LUMP OR CYST Bloating R14.0 Carpal tunnel syndrome G56.00 Cataract H26.9 Depression F32.9 GASTROINTESTIONAL PROBLEMS Hearing problem H91.90 History of migraine headaches Z86.69 Hives L50.9 IBS (irritable bowel syndrome) LIPOMA UPPER BACK/POSTERIOR NECK Leg weakness R29.898 Mass in neck R22.1 OAB (overactive bladder) N32.81 Osteoarthritis M19.90 Pneumonia J18.9 Polycystic ovary E28.2 Psoriasis L40.9 Recurrent infections B99.9 SPINAL STENOSIS - MULTIPLE BACK ISSUES Seasonal allergies J30.2 Vision problems H54.7 Surgical History: Past Surgical History (Last Updated 10/07/17 @ 14:20 by Amaris Reyna) ADENOIDS AND TONSILS 1975 CATARACT L AND R, TORIC LENS REPLACEMENT 2016 COMPLETE HYSTERECTOMY WITH BSO 2015 Deviated septum J34.2 EXCISION 8 CM PAINFUL SOFT TISSUE MASS UPPER BACK/POSTERIOR NECK - 09/23/17 H/O bilateral breast reduction surgery Onset Date: 2012 Z98.890 RADIOFRQUENSY ABLATION 2016 Family History: Family History (Last Updated 11/10/17 @ 14:38 by Bonilla Alvarez MD) Father Hypertension Mother Arthritis Hypertension Cancer Brother Alcohol abuse Aunt Diabetes Grandfather Alcohol abuse Grandfather Psychiatric care Cancer CVA (cerebral vascular accident) Grandmother Alcohol abuse Grandmother Arthritis Depression Other Family history of basal cell carcinoma Family history of skin cancer - Current/ Previous Services Pulmonary Rehab:: No Social History - Smoking History Smoking Status: Never smoker Hx Tobacco Use: No Hx Smoking Exposure: No - Alcohol Use Alcohol Usage: No - Substance Abuse Hx Substance Use: No - Occupation Occupation (List type of work in comments):: Unemployed - middle of obtaining disability - Hobbies, Recreation, Social Activities Hobbies: Sewing - cross-stiching, Reading, Other - pets animals Recreational Activities: I am able to engage in a few activities - recovery from left foot surgery and chronic back pain Functioning ADL/IADL - Current Ability Current Ability: Independent Self-Care (e.g.,grooming, dressing, AND bathing), Independent Ambulation - uses rollator walker device, Independent Transfer, Independent Household tasks (e.g., light meal prep, laundry, shopping) - Pt Functioning Prior to Problem Prior Functioning: Self-Care (e.g.,grooming, dressing, AND bathing): Independent, Ambulation: Independent - uses rollator rolled walker device, Transfer: Independent, Household tasks (e.g., light meal prep, laundry, shopping): Independent Social Environment - Status Marital Status: - Current Living Arrangements Living Environment:: Spouse - Children How many children do you have?: 0 - unable to have children Do any of your children live nearby?: No - Safety Do you feel safe in your surroundings?: Yes - Assistance Do you need any assistance at home?: has been helping with home chores etc. Review of Systems Review of Systems: Right click = Denies (Slash). Left click = Reports ([place]) Respiratory: Reports: SOB at Rest, SOB upon Exertion, Wheezing, Appetite, Normal - emotional eater; suffers from depression adn eats to deal with emotions., Fatigue. Denies: Cough, Pleuritic Pain, Sputum production, Dizziness/Lightheadedness, Sleep, Normal - fall asleep on couch routinely then goes to bed but irregular sleep pattern due to insomnia. Is Patient Pain Free?: Yes Pain Location: neck, back, lower extremity - bilateral knee pain, and ankles. Pain Level: 8/10 Previous experience dealing with pain?: injections in neck and back, nerve ablations Risk Factor Assessment - Vital Signs Temperature: 98.7 F Pulse Rate: 77 - at rest Respiratory Rate: 20 Pulse Ox: 95 - room air Blood Pressure: 116/70 Nailbeds:: nails are painted - Diabetes Nutrition Referral for Diabetes: No - Obesity Height: 5 ft 7 in Weight:: 235 lb - down from 265 Weight in Pounds: 235.0 lbs Weight Source: Standing Scale Body Mass Index (BMI): 36.8 Nutritional Referral for Obesity: Yes - Physical Activity Physical Inactivity: None - For Smoking Smoking Risk Guidelines: Smoking Low Risk: None or quit greater than 6 months ago. Smoking Moderate Risk: Smoker or quit 6 months or less ago. Smoking High Risk: Smoker - For Dyslipidemia Dyslipidemia Risk Guidelines: Low Risk: Moderate Risk: High Risk: 15-25% fat 25.1-29% fat >/= 30% fat. <7% sat fat 7-9% sat fat >9% sat fat. <150 mg chol 150-299 mg chol >/= 300 mg chol. LDL <100 LDL 100-129 LDL >/= 130. Chol/HDL ratio <5.0 Chol/HDL ratio 5.0-6.0 Chol/HDL ratio >6.0. Triglycerides <100 Triglycerides 100-149 Triglycerides >/= 150 - For Diabetes Mellitus Diabetes Risk Guidelines: Diabetes Low Risk: HgA1c <6.5% and/or FBG <120. Diabetes Moderate Risk: HgA1c 6.6-7.9% and/or FBG 120- 180. Diabetes High Risk: HgA1c >/= 8% and/or FBG >180 - For Obesity/Overweight Obesity/Overweight Risk Guidelines: Obesity Low Risk: BMI <25.0. Obesity Moderate Risk: BMI 25-29.9. Obesity High Risk: BMI >/= 30.0 - For Hypertension Hypertension Risk Guidelines: Hypertension Low Risk: Systolic <120 and Diastolic <80. Hypertension Moderate Risk: Systolic 120-139 and Diastolic 80-89. Hypertension High Risk: Systolic >/= 140 and Diastolic >/= 90 - For Sedentary Lifestyle Sedentary Lifestyle Risk Guidelines: Sedentary Lifestyle Low Risk: >/= 1,500 kcal/week. Sedentary Lifestyle Moderate Risk: 700-1,499 kcal/week. Sedentary Lifestyle High Risk: < 700 kcal/week - For Depression Depression Risk Guidelines: Depression Low Risk: Not clinically depressed. Depression Moderate Risk: Mildly depressed. Depression High Risk: Clinically depressed Motivation - Motivation to Participate On a scale of 1 to 10, how prepared are you to commit to attending program?: 10 What do you see as barriers to successfully being able to complete the program?: left foot, and maybe pain. What do you see as the benefits of succesfully completing the program? In other words, what do you hope to get out of participating in the program?: hoping to be able to breath better, more active at home Are there issues you are dealing with that will interfere with completing the program?: left foot surgery, back cervical pain; no other problems. Do you have a spouse or signficant other, family or friends who will help support you to complete the program?: excellent support Diagnostic Data Review - 6 Minute Walk Test 6 Minute Walk Test: none recorded - Pulmonary Function Test FEV1:: 0 - scheduled for 07/27/18 1348 <Electronically signed by Arturo Soler CRT, RCP, MARIO> Date Arturo Soler CRT, RCP, BS Outcome assessment reviewed. Exercise plan approved as documented. Treatment plan and goals support patient needs/abilities. Continue with current plan. I certify the patient demonstrates improvement and remains willing and capable of participation. the patient continues to benefit from pulmonary services/training. The patient may continue at current intensity, endurance and modality and progress per protocol. 08/25/18 1330<Electronically signed by Luis Fernando Cassidy MD> Cosigner Signature: Date Luis Fernando Cassidy MD CC: Signed [place] - INDIVIDUAL Observed: 08/25/2018 Status: F Source: [place] [facility] 1:30 PM [facility] REPOSITORY [facility] Pulmonary Rehab Reports [address] [place] [address] [place] - Individual Treatment Plan MR#: [id number] Acct: [id number] Name: GAY COLEMAN Rep #: [id number] : 1965 52 From: Arturo Soler CRT, RIGO, BS PCP: Everton Cash DO General Information - General Information Admitting Diagnosis: Asthma - PFT FEV1:: 0 - scheduled for 07/31/18@11:00 am - Education/Goals Barriers to Learning: Vision Impairment Individual Counseling: Initial Assessment: Dyspnea control techniques at rest, activity, and ADLs, ADL management and pacing, Panic AND depression management, Nutrition AND weight management, Home exercise plan AND guidelines Patient Goals: Breathe better: Initial Assessment, Increase endurance/stamina: Initial Assessment, Return to recreation/hobby: Initial Assessment, Improve diet and nutrition: Initial Assessment, Improve weight: Initial Assessment Exercise - Initial Assessment - Visit Date of Eval: 07/27/18 - scheduled to start after 08/03/18 - Problem/Goals Problems: Deconditioning, No regular exercise, Knowledge deficit exercise guidelines, Knowledge deficit exercise safety Goals:: Aerobic exercise 30-60 mins x 9 weeks - Exercise Prescription Mode:: Airdyne, NuStep, Arm Ergometer Frequency (x/week): 3 Duration:: 30 MET LEVEL:: 2 HR (bpm):: 125 - 116-125 THRR Exercise Progression: as tolerated by patient and program protocol. - Plan Plan and Plan to Review:: Benefits of exercise, Core components of exercise, How to measure dyspnea level, How to monitor dyspnea level, Exercise intensity, Exercise safety guideline, Home exercise guidelines, Thomas: 3-4/11-13 Disease Management - Initial - Problems/Goals-Medications Medication Goals: Adherence to prescribed medications, Correct technique/timing AND care of MDI, DPI, nebulizer, and spacer. - Problems/Goals-Bronchial Hygiene Bronchial Hygiene Problems:: Respiratory infection Prevention/Management Bronchial Hygiene Goals:: Pt demonstrates effective cough, effective secretion clearance., Pt describes signs and symptoms of infection. - Initial Assessment SpO2:: 95 FiO2:: 21 Does pt report taking home meds as prescribed?: Yes Medications: Yes MDI, Yes NEB, Yes Spacer Patient Reports:: No cough - Plans Hypoxemia Plan:: Monitor SpO2 rest AND with exercise, Train appropriate O2 use with exercise Reviewed prescribed medications:: Purpose, Schedule, Side effects, Importance of compliance Instruct correct technique/timing AND care:: MDI, DPI, Nebulizer, Return demo use of inhaler Bronchial Hygiene Plan: Vibratory PEP device, Hydration, Hand hygiene, Signs/symptoms to report: Psychosocial - Initial Assess - Problems/Goals Problems: Depression - Chronci depressive disorder currently medicated for., Anxiety, Ineffective coping, Impaired Q.O.L. Psychosocial Goals: Improved Q.O.L. - Psychosocial Test Depression:: Impaired QOL Tests Completed: SF - 36 survey completed, Mood Scale Test Referred to MD for counseling:: No - Plan Reviewed screening results: Yes Instructions given regarding:: Benefits of exercise, Relaxation techniques, Training in coping strategies Stress management: On meds currently, Receiving counseling Tobacco - Initial Assessment - Program Goals Tobacco Program Goals: Complete smoking cessation. Attend education classes. Improve Knowledge Test score - Stage of Change Stages of Change:: Action - Learning Barriers Learning Barriers: Vision, Ready to Learn - Family Support Do you have family support?: Yes - Tobacco Use Tobacco Use: Non-smoker Do you use smokeless tobacco?: No - Intervention Smoking Cessation Referral:: No Individual Education/Counseling:: No Education Schedule Given:: Yes - Education Gave Education Materials For:: Pulmonary Disease, Risk Factors, Breathing Techniques, Medical Compliance, Pulmonary A AND P, Exacerbation Signs AND Symptoms, Stress AND Relaxation Nutrition/Wt Mgmt - Initial - Problems/Goals Problems: Overweight Goals: Wt Loss 1-2 lbs per week - Weight Management Knowledge Deficit Management of:: Overweight Admit Height:: 5 ft 7 in Admit Weight:: 235 lb - currently down from 265 Admit BMI:: 36.8 - Diabetes Diabetes:: No Insulin: No Do you monitor your blood sugar at home?: No - Intervention Referral to dietitian:: No Referral to Diabetic Clinic:: No Will attend diet classes:: Yes - Plan Nutrition Plan: Yes Review BMI or WC AND identify target wt AND strategies for wt control, Yes Medication education class [Prednisone]:, Yes Weight control education class: Patient Health Questionnaire Initial Assessment 1. Little interest or pleasure in doing things: More than half the days 2. Feeling down, depressed, or hopeless: Nearly every day 3. Trouble falling or staying asleep, or sleeping too much: Nearly every day 4. Feeling tired or having little energy: Nearly every day 5. Poor appetite or overeating: Nearly every day 6. Feeling bad about yourself -- or that you are a failure or have let yourself or your family down: Nearly every day 7. Trouble concentrating on things, such as reading the newspaper or watching television: Nearly every day 8. Moving or speaking so slowly that other people could have noticed. Or the opposite - being so fidgety or restless that you have been moving around a lot more than usual: Not at all 9. Thoughts that you would be better off , or of hurting yourself in some way: Not at all How difficult have these problems made it for you to do your work, take care of things at home, or get along with other people?: Somewhat difficult Total Score: 20 COPD Knowledge Test Initial COPD is a lung disease that:: Makes it hard to breathe AND gets worse over time In the [place] the term COPD describes 2 main lung conditions:: Emphysema AND chronic bronchitis The most common lung irritant that causes COPD is:: Cigarette smoke Common signs and symptoms of COPD include:: An ongoing cough/cough that produces a large amount of mucus, AND SOB If you have COPD, what steps can you take?: All of the above Swelling of the ankles is common in COPD:: True Fatigue [tiredness] is common in COPD:: True Wheezing is common in COPD:: True Crushing chest pain is common in COPD:: True Rapid weight loss is common in COPD:: False Breathlessness is a normal response to exercise: False Exercise should be avoided if it makes you short of breath: False All bronchodilators act within 10 minutes: False A spacer device increases the medication to the lungs: True Annual flu vaccine is recommended for pts w/lung disease: True COPD Knowledge Test Total Score:: 12 COPD Assessment Test [CAT] - Questions Never cough = 0, Cough all the time = 5: 0 No phlegm = 0, Chest full of phlegm = 5: 1 No chest tightness = 0, Chest very tight = 5: 5 No breathless w/exertion = 0, Very breathless w/exertion = 5: 5 No limitations w/activity = 0, Very limited w/activity = 5: 4 Confident leaving home = 0, Not at all confident = 5: 2 Sleep soundly = 0, Don't sleep soundly = 5: 5 Lots of energy = 0, No energy at all = 5: 4 Total CAT score:: 26 Self-Efficacy Initial Assessment We would like to know how confident you are in doing certain activities. Please select your confidence level for:: Select your confidence level for the following using the scale 1-10 where 1 is not at all confident and 10 is totally confident. Your score is the average of all 6 responses. Fatigue: How confident are you that you can keep the fatigue caused by your disease from interfering with the things you want to do? Select Number: 8 Physical Discomfort or Pain: How confident are you that you can keep the physical discomfort or pain of your disease from interfering with the things you want to do? Select Number: 9 Emotional Distress: How confident are you that you can keep the emotional distress caused by your disease from interfering with the things you want to do? Select Number: 10 Other Symptoms or Health Problems: How confident are you that you can keep other symptoms or health problems from interfering with the things you want to do? Select Number: 9 Different Tasks and Activities: How confident are you that you can do the different tasks and activities needed to manage your health condition so as to reduce your need to see a doctor? Select Number: 10 Medication: How confident are you that you can do things other than just taking medication to reduce how much your illness affects your everyday life? Select Number: 10 Total Score:: 9 Nutrition Survey - Nutrition Survey Instructions Scoring Instructions: Scoring is as follows: Yes = 1 points. No = 0 point. Patient score that is >/=12 is considered to be at potential nutritional risk and could benefit from a referral to a registered dietitian. - Nutrition Survey Initial Have you lost >10 lbs over the past 2 months without trying?: No Are you following a special diet at home for diabetes, low fat, or low salt?: No Are you interested in meeting with a dietitian for help understanding your diet?: No - Has already seen nutritional services and max'd out medical benefit through insurance. Do you eat less than 3 meals a day?: Yes Do you eat fatty meats (vicente, sausage, ribs, etc), fried foods, desserts, large amounts of salad dressings, margarine, butter, or cheese most days?: Yes Do you have food allergies? [Enter types in comment field]: No Do you eat in restaurants more than 3 times a week?: Yes Do you season food with salt, seasoning salt, or garlic salt?: No Do you used canned, boxed, frozen meals, or soups, seasoning packets?: Yes Total Score:: 4 07/27/18 1431 <Electronically signed by Arturo Soler CRT, RCP, BS> Date Arturo Soler CRT, RCP, MARIO Outcome assessment reviewed. Exercise plan approved as documented. Treatment plan and goals support patient needs/abilities. Continue with current plan. I certify the patient demonstrates improvement and remains willing and capable of participation. the patient continues to benefit from pulmonary services/training. The patient may continue at current intensity, endurance and modality and progress per protocol. 08/25/18 1330<Electronically signed by Luis Fernando Cassidy MD> Ellenigner Signature: Date Luis Fernando Cassidy MD CC: Signed PROGRESS Observed: 08/11/2018 Status: COMPLETED Source: [place] 2:05 PM [facility] REPOSITORY HNO ID: [id number] Author: Ehsan Sterling Service: (none) Author Type: Psychologist Type: Progress Notes Filed: 08/12/2018 12:53 PM Note Text: [facility] Progress Note Gay Coleman 08/11/2018 [id number] Provider: Ehsan Vasquez PSYD CPT Code: 88724 Psychotherapy 38-52 minutes Time: Approximately 45 minutes was spent in therapy. Parties Present: Patient Patient Presentation/Concerns: Gay is still in a lot of pain, she reports. The boot is off of her foot and she is no longer walking with a scooter. She has a brace on her foot and walks slowly. Queenie stated being at 235lbs. She states struggling to make healthy food choices this week. In particular, she states having difficult with letting go of eating out. For many years, it was something to look forward to, gave her comfort and entertainment. We spoke about her relationship to her and being more open to accepting and giving love, which she states is difficult after the relationship she had with her parents. Mental Status: Mood: neutral Affect: mood-congruent Thoughts/Associations:goal directed Suicidal/Homicidal Ideation: None expressed or evidenced Other Observations: None Therapy Focus Mood/affect regulation MEDICATIONS: Per medical record: Current Outpatient Prescriptions: MYRBETRIQ 25 mg Tb24 TAKE ONE TABLET BY MOUTH ONCE DAILY metoprolol tartrate, short acting, (LOPRESSOR) 25 mg tablet Take 25 mg by mouth twice daily. mirtazapine (REMERON) 30 mg tablet Take 30 mg by mouth daily at bedtime. guselkumab (TREMFYA) 100 mg/mL syrg Inject subcutaneously. naltrexone-bupropion (CONTRAVE) 8-90 mg TbER Take 1 tablet by mouth as directed. 2 tablets PO bid clobetasol (TEMOVATE) 0.05 % cream Apply to affected area twice daily. HYDROcodone-acetaminophen (NORCO) 5-325 mg per tablet Take 1 tablet by mouth every 6 hours as needed for Pain. For post op pain per Dr. Velasquez Fill Date: 05/26/18 LINZESS 290 mcg cap TAKE ONE CAPSULE BY MOUTH ONCE DAILY fluticasone (FLONASE) 50 mcg/actuation nasal spray Use 2 Sprays in each nostril once daily. Rinse mouth after use. ADVAIR DISKUS 250-50 mcg/dose dsdv INHALE ONE DOSE BY MOUTH TWICE DAILY. *RINSE AND GARGLE MOUTH WITH WATER AFTER USE* COMPOUNDED PRESCRIPTION Aqua Therapy DX: E66.01; M50.30; M51.36 COMPOUNDED PRESCRIPTION Consult pulmonary rehab estrogens conjugated (PREMARIN) 0.9 mg tablet Take 1 tablet by mouth once daily. pregabalin (LYRICA) 100 mg capsule Take 100 mg by mouth three times daily. buPROPion SR (ZYBAN SR; WELLBUTRIN SR) 150 mg 12 hr tablet Take 1 tablet by mouth twice daily. meclizine (ANTIVERT) 12.5 mg tab Take 1-2 tablets by mouth twice daily as needed (dizziness). albuterol HFA (VENTOLIN HFA) 90 mcg/actuation inhaler Inhale 2 Puffs as instructed every 4 hours as needed for Wheezing/Shortness of Breath. FLUoxetine HCl (PROZAC) 40 mg capsule Take 1 capsule by mouth once daily. albuterol (PROVENTIL) 2.5 mg /3 mL (0.083 %) nebulizer solution Use 3 mL via nebulizer every 4 hours as needed for Wheezing/Shortness of Breath. Use over 5-15minutes. diclofenac, EC, (VOLTAREN) 75 mg EC tablet Take 1 tablet by mouth twice daily. For pain/inflammation. Take with food. PER DR. MALONE diclofenac sodium (VOLTAREN) 1 % topical gel Apply to affected area four times daily. PER DR. MALONE baclofen (LIORESAL) 10 mg tablet Take 1 tablet by mouth twice daily. (Patient taking differently: Take 10 mg by mouth three times daily.) TENS Units malika 1 Device as needed. COMPOUNDED PRESCRIPTION Order: cock up splints (2)Dx: carpal tunnel syndrome bilateral Cholecalciferol, Vitamin D3, 5,000 unit tab Take 5,000 Units by mouth once daily. cyanocobalamin (VITAMIN B-12) 1,000 mcg tab Take 1,000 mcg by mouth once daily. Docusate Sodium 250 mg capsule Take 250 mg by mouth once daily. No current facility-administered medications for this visit. Psychiatric Medication Issues: No change from previous appointment DIAGNOSIS: Depression, recurrent Binge Eating Disorder Treatment Modality/Interventions: Cognitive Behavioral TREATMENT ASSESSMENT/PROGRESS: Stable TREATMENT PLAN/GOALS: Continue in therapy focusing on anxiety management. Next appointment: 2 weeks Ehsan Vasquez PSYD PROGRESS Observed: 08/05/2018 Status: COMPLETED Source: [place] 4:58 PM [facility] [place] REPOSITORY O ID: [id number] Author: Ehsan Sterling Service: (none) Author Type: Psychologist Type: Progress Notes Filed: 08/05/2018 5:01 PM Note Text: [facility] Progress Note Gay Coleman 07/28/2018 [id number] Provider: Ehsan Vasquez PSYD CPT Code: 20897 Psychotherapy 38-52 minutes Time: Approximately 45 minutes was spent in therapy. Parties Present: Patient Patient Presentation/Concerns: Queenie spoke about a conflict with a new friend at [employer]. This prompted feelings of being misunderstood, rejected etc. We discussed ways to communicate to the friend and to let go of the conflict without emotional eating. We discussed mantras and reasons to help motivate her to stop binge eating. Mental Status: Mood: neutral Affect: mood-congruent Thoughts/Associations:goal directed Suicidal/Homicidal Ideation: None expressed or evidenced Other Observations: None Therapy Focus Mood/affect regulation MEDICATIONS: Per medical record: Current Outpatient Prescriptions: MYRBETRIQ 25 mg Tb24 TAKE ONE TABLET BY MOUTH ONCE DAILY metoprolol tartrate, short acting, (LOPRESSOR) 25 mg tablet Take 25 mg by mouth twice daily. mirtazapine (REMERON) 30 mg tablet Take 30 mg by mouth daily at bedtime. guselkumab (TREMFYA) 100 mg/mL syrg Inject subcutaneously. lorcaserin (BELVIQ XR) 20 mg Tb24 Take 1 tablet by mouth once daily for 30 days. BMI 36 naltrexone-bupropion (CONTRAVE) 8-90 mg TbER Take 1 tablet by mouth as directed. 2 tablets PO bid clobetasol (TEMOVATE) 0.05 % cream Apply to affected area twice daily. HYDROcodone-acetaminophen (NORCO) 5-325 mg per tablet Take 1 tablet by mouth every 6 hours as needed for Pain. For post op pain per Dr. Velasquez Fill Date: 05/26/18 LINZESS 290 mcg cap TAKE ONE CAPSULE BY MOUTH ONCE DAILY fluticasone (FLONASE) 50 mcg/actuation nasal spray Use 2 Sprays in each nostril once daily. Rinse mouth after use. ADVAIR DISKUS 250-50 mcg/dose dsdv INHALE ONE DOSE BY MOUTH TWICE DAILY. *RINSE AND GARGLE MOUTH WITH WATER AFTER USE* COMPOUNDED PRESCRIPTION Aqua Therapy DX: E66.01; M50.30; M51.36 COMPOUNDED PRESCRIPTION Consult pulmonary rehab estrogens conjugated (PREMARIN) 0.9 mg tablet Take 1 tablet by mouth once daily. pregabalin (LYRICA) 100 mg capsule Take 100 mg by mouth three times daily. buPROPion SR (ZYBAN SR; WELLBUTRIN SR) 150 mg 12 hr tablet Take 1 tablet by mouth twice daily. meclizine (ANTIVERT) 12.5 mg tab Take 1-2 tablets by mouth twice daily as needed (dizziness). albuterol HFA (VENTOLIN HFA) 90 mcg/actuation inhaler Inhale 2 Puffs as instructed every 4 hours as needed for Wheezing/Shortness of Breath. FLUoxetine HCl (PROZAC) 40 mg capsule Take 1 capsule by mouth once daily. albuterol (PROVENTIL) 2.5 mg /3 mL (0.083 %) nebulizer solution Use 3 mL via nebulizer every 4 hours as needed for Wheezing/Shortness of Breath. Use over 5-15minutes. diclofenac, EC, (VOLTAREN) 75 mg EC tablet Take 1 tablet by mouth twice daily. For pain/inflammation. Take with food. PER DR. MALONE diclofenac sodium (VOLTAREN) 1 % topical gel Apply to affected area four times daily. PER DR. MALONE baclofen (LIORESAL) 10 mg tablet Take 1 tablet by mouth twice daily. (Patient taking differently: Take 10 mg by mouth three times daily.) TENS Units malika 1 Device as needed. COMPOUNDED PRESCRIPTION Order: cock up splints (2)Dx: carpal tunnel syndrome bilateral Cholecalciferol, Vitamin D3, 5,000 unit tab Take 5,000 Units by mouth once daily. cyanocobalamin (VITAMIN B-12) 1,000 mcg tab Take 1,000 mcg by mouth once daily. Docusate Sodium 250 mg capsule Take 250 mg by mouth once daily. No current facility-administered medications for this visit. Psychiatric Medication Issues: No change from previous appointment DIAGNOSIS: Depression, recurrent binge Eating Disorder Treatment Modality/Interventions: Cognitive Behavioral TREATMENT ASSESSMENT/PROGRESS: Stable TREATMENT PLAN/GOALS: Continue in therapy focusing on affect management, mindful eating, CBT for depression Next appointment: 2 weeks Ehsan Vasquez PSYD PROGRESS Observed: 08/04/2018 Status: COMPLETED Source: [place] 1:37 PM [facility] REPOSITORY HNO ID: [id number] Author: Ehsan Sterling Service: (none) Author Type: Psychologist Type: Progress Notes Filed: 08/11/2018 2:35 PM Note Text: [facility] Progress Note Gay K Virginia 08/04/2018 [id number] Provider: Ehsan Vasquez PSYD CPT Code: 71979 Psychotherapy 38-52 minutes Time: Approximately 45 minutes was spent in therapy. Parties Present: Patient Patient Presentation/Concerns: Queenie indicated that she is still working on reducing food addiction. She came up with a new mantra to help refocus her when triggered to eat emotionally. She has another treatment tomorrow. She is still using the walker and indicates being in a lot of pain. Queenie discussed another letter from her mother that was very upsetting to her. Mental Status: Mood: depressed Affect: mood-congruent Thoughts/Associations:goal directed Suicidal/Homicidal Ideation: None expressed or evidenced Other Observations: None Therapy Focus Mood/affect regulation MEDICATIONS: Per medical record: Current Outpatient Prescriptions: MYRBETRIQ 25 mg Tb24 TAKE ONE TABLET BY MOUTH ONCE DAILY metoprolol tartrate, short acting, (LOPRESSOR) 25 mg tablet Take 25 mg by mouth twice daily. mirtazapine (REMERON) 30 mg tablet Take 30 mg by mouth daily at bedtime. guselkumab (TREMFYA) 100 mg/mL syrg Inject subcutaneously. lorcaserin (BELVIQ XR) 20 mg Tb24 Take 1 tablet by mouth once daily for 30 days. BMI 36 naltrexone-bupropion (CONTRAVE) 8-90 mg TbER Take 1 tablet by mouth as directed. 2 tablets PO bid clobetasol (TEMOVATE) 0.05 % cream Apply to affected area twice daily. HYDROcodone-acetaminophen (NORCO) 5-325 mg per tablet Take 1 tablet by mouth every 6 hours as needed for Pain. For post op pain per Dr. Velasquez Fill Date: 05/26/18 LINZESS 290 mcg cap TAKE ONE CAPSULE BY MOUTH ONCE DAILY fluticasone (FLONASE) 50 mcg/actuation nasal spray Use 2 Sprays in each nostril once daily. Rinse mouth after use. ADVAIR DISKUS 250-50 mcg/dose dsdv INHALE ONE DOSE BY MOUTH TWICE DAILY. *RINSE AND GARGLE MOUTH WITH WATER AFTER USE* COMPOUNDED PRESCRIPTION Aqua Therapy DX: E66.01; M50.30; M51.36 COMPOUNDED PRESCRIPTION Consult pulmonary rehab estrogens conjugated (PREMARIN) 0.9 mg tablet Take 1 tablet by mouth once daily. pregabalin (LYRICA) 100 mg capsule Take 100 mg by mouth three times daily. buPROPion SR (ZYBAN SR; WELLBUTRIN SR) 150 mg 12 hr tablet Take 1 tablet by mouth twice daily. meclizine (ANTIVERT) 12.5 mg tab Take 1-2 tablets by mouth twice daily as needed (dizziness). albuterol HFA (VENTOLIN HFA) 90 mcg/actuation inhaler Inhale 2 Puffs as instructed every 4 hours as needed for Wheezing/Shortness of Breath. FLUoxetine HCl (PROZAC) 40 mg capsule Take 1 capsule by mouth once daily. albuterol (PROVENTIL) 2.5 mg /3 mL (0.083 %) nebulizer solution Use 3 mL via nebulizer every 4 hours as needed for Wheezing/Shortness of Breath. Use over 5-15minutes. diclofenac, EC, (VOLTAREN) 75 mg EC tablet Take 1 tablet by mouth twice daily. For pain/inflammation. Take with food. PER DR. MALONE diclofenac sodium (VOLTAREN) 1 % topical gel Apply to affected area four times daily. PER DR. MALONE baclofen (LIORESAL) 10 mg tablet Take 1 tablet by mouth twice daily. (Patient taking differently: Take 10 mg by mouth three times daily.) TENS Units malika 1 Device as needed. COMPOUNDED PRESCRIPTION Order: cock up splints (2)Dx: carpal tunnel syndrome bilateral Cholecalciferol, Vitamin D3, 5,000 unit tab Take 5,000 Units by mouth once daily. cyanocobalamin (VITAMIN B-12) 1,000 mcg tab Take 1,000 mcg by mouth once daily. Docusate Sodium 250 mg capsule Take 250 mg by mouth once daily. No current facility-administered medications for this visit. Psychiatric Medication Issues: No change from previous appointment DIAGNOSIS: Depression Binge Eating Disorder Treatment Modality/Interventions: Cognitive Behavioral TREATMENT ASSESSMENT/PROGRESS: Stable TREATMENT PLAN/GOALS: Continue in therapy focusing on affect management, mindful eating skills, CBT for depression, communication skills/with mother. Next appointment: 2 weeks Ehsan Vasquez PSYD PULMONARY FUNCTION Observed: 07/31/2018 Status: F Source: [place] REPORT COMP 3:16 PM [facility] REPOSITORY [facility] Pulmonary Services/Neurology [address] [place] [address] [place] [address] MR#: [id number] Acct: [id number] Name: GAY COLEMAN Rep #: [id number] : 1965 52 From: Marcellus Wheeler MD Referring Dr: Everton Cash DO Status: REG CLI Ordering Dr: Date: Location: [facility] Sex: F C COMPLETE PULMONARY FUNCTION TEST INTERPRETATION Brief HPI: Patient is a 52 year old female, currently under the care of Dr. Acevedo, who presents to [facility] for complete pulmonary function tests secondary to diagnosis of asthma. Respiratory therapist reports good effort and reproducible results. Interpretation: Forced expiration spirometry shows a mild large airways obstructive ventilatory defect with an FEV1 of 74% predicted. There is no significant bronchodilator response by ATS criteria. Spirograms are of good quality and plateau slowly, indicating slowly emptying areas of the lungs. The respiratory flow volume loop shows decreased expiratory flow rates at high lung volumes consistent with small airways obstruction. Lung volumes by body plethysmography show a normal total lung capacity at 4.91 L, 88% predicted. All other lung volumes are at the lower limit of normal. Diffusion capacity by carbon monoxide is decreased at 66% predicted. The airway resistance is normal. No previous pulmonary function tests were available for review. Impression: Irreversible mild large airways obstructive ventilatory defect. Diffusion capacity is reduced out of proportion to may indicate a pulmonary vascular disease. Consider echocardiogram if not completed previously. 07/31/181515 <Electronically signed by Marcellus Wheeler MD> Date Marcellus Wheeler MD CC: Marcellus Wheeler MD; Everton Cash, Date Dictated: 07/31/181513 Date Transcribed: 07/31/181513 Skydiving Instructor: ABHAY Signed PLASTIC SURGERY Observed: 07/28/2018 Status: F Source: [place] VISIT REPORT 4:08 PM [facility] REPOSITORY [facility] [address] [place] [address] OFFICE VISIT Date of Service: 07/23/18 MR#: [id number] Acct: [id number] Name: GAY COLEMAN Rep #: [id number] : 1965 Provider: Bonilla Alvarez MD Age/Sex: 52/F Location: [facility] Status: Signed Intake Vital Signs07/23/18 Height 5 ft 7 in 07/23/18 Blood Pressure 165/88 H 07/23/18 Blood Pressure Location Lt brachial 07/23/18 Blood Pressure Position Sitting 07/23/18 Respiratory Rate 16 Intake Visit Reasons: evaluation painful scar contour deformity upper back 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 Accompanied by: None Is patient in pain?: Yes (UPPER BACK/ NECK PAIN SHARP AND STABBING) Pain scale (1-10): 7 Allergies nabumetone Allergy (Verified 07/23/18 14:48) Hives thimerosal Allergy (Verified 07/23/18 14:48) Other naproxen [From Naprosyn] Adverse Reaction (Verified 07/23/18 14:48) Other oxycodone HCl [From Percocet] Adverse Reaction (Verified 07/23/18 14:48) Other birds Allergy (Uncoded 07/23/18 14:48) Other molds Allergy (Uncoded 07/23/18 14:48) Other seasonal Allergy (Uncoded 07/23/18 14:48) Other Medications Albuterol Aerosols [Ventolin Aerosols] 2.5 mg INHALATION Q6H PRN PRN 09/22/17 [History Confirmed 03/18/18] Albuterol Inhaler [Ventolin Hfa] 2 puff INHALATION Q4H PRN PRN 09/22/17 [History Confirmed 03/18/18] Baclofen [Lioresal] 10 mg PO TID 09/22/17 [History Confirmed 03/18/18] Calcium Carbonate/Vitamin D3 [Calcium 500-Vit D3 200 Tablet] 1 ea PO DAILY 09/22/17 [History Confirmed 03/18/18] Diclofenac Sodium 100 gm TP 4X/DAY 09/22/17 [History Confirmed 03/18/18] Diclofenac [Voltaren] 75 mg PO BIDCM 09/22/17 [History Confirmed 03/18/18] Econazole [Spectazole] 1 applic TOPICAL DAILY 09/22/17 [History Confirmed 03/18/18] Estrogens, Conjugated [Premarin] 0.9 mg PO DAILY 09/22/17 [History Confirmed 03/18/18] Fluoxetine [Prozac] 40 mg PO DAILY 09/22/17 [History Confirmed 03/18/18] Linaclotide [Linzess] 290 mcg PO DAILY 09/22/17 [History Confirmed 03/18/18] Mirabegron [Myrbetriq] 25 mg PO DAILY 09/22/17 [History Confirmed 03/18/18] Mirtazapine [Remeron] 22 mg PO QHS 09/22/17 [History Confirmed 03/18/18] Pregabalin [Lyrica] 100 mg PO TID 09/22/17 [History Confirmed 03/18/18] Pyridoxine HCl [Vitamin B-6] 100 mg PO DAILY 09/22/17 [History Confirmed 03/18/18] buPROPion SR [Wellbutrin SR (150mg tablets)] 150 mg PO BID 09/22/17 [History Confirmed 03/18/18] Fluticasone/Salmeterol [Advair 250/50 Mcg Diskus] 1 puff INHALATION BID 11/26/17 [History Confirmed 03/18/18] Docusate Sodium [Colace] 100 mg PO BID cap 11/29/17 [Rx Confirmed 03/18/18] Lactobacillus Combo No.11 [Probiotic] 1 ea PO DAILY #60 cap.sprink 11/29/17 [Rx Confirmed 03/18/18] Cholecalciferol (Vitamin D3) [Vitamin D3] 1,000 unit PO DAILY 03/18/18 [History Confirmed 03/18/18] Cyanocobalamin [Vitamin B12] 500 mcg PO DAILY@0800 03/18/18 [History Confirmed 03/18/18] guselkumab 100 mg/mL subcutaneous syringe 100 mg SC Q8W 07/23/18 [History Confirmed 07/23/18] metoprolol succinate ER 25 mg capsule sprinkle, ext. release 24 hr mg PO 07/23/18 [History Confirmed 07/23/18] PFSH Medical History Lipoma of back (Chronic) Postoperative seroma of subcutaneous tissue after dermatologic procedure (Acute) Arthritis (Acute) Asthma (Acute) BREAST LUMP OR CYST (Acute) Bloating (Acute) Carpal tunnel syndrome (Acute) Cataract (Acute) Depression (Acute) GASTROINTESTIONAL PROBLEMS (Acute) Hearing problem (Acute) History of migraine headaches (Acute) Hives (Acute) IBS (irritable bowel syndrome) (Acute) LIPOMA UPPER BACK/POSTERIOR NECK (Acute) Leg weakness (Acute) Mass in neck (Acute) OAB (overactive bladder) (Acute) Osteoarthritis (Acute) Pneumonia (Acute) Polycystic ovary (Acute) Psoriasis (Acute) Recurrent infections (Acute) SPINAL STENOSIS - MULTIPLE BACK ISSUES (Acute) Seasonal allergies (Acute) Vision problems (Acute) Surgical History ADENOIDS AND TONSILS 1974 (Acute) CATARACT L AND R, TORIC LENS REPLACEMENT 2016 (Acute) COMPLETE HYSTERECTOMY WITH BSO 2015 (Acute) Deviated septum (Acute) EXCISION 8 CM PAINFUL SOFT TISSUE MASS (Acute) H/O bilateral breast reduction surgery (Acute 2012) RADIOFRQUENSY ABLATION 2017 (Acute) Family History Father Hypertension Mother Arthritis Hypertension Cancer Brother Alcohol abuse Aunt Diabetes Grandfather Alcohol abuse Grandfather Psychiatric care Cancer CVA (cerebral vascular accident) Grandmother Alcohol abuse Grandmother Arthritis Depression Other Family history of basal cell carcinoma Family history of skin cancer Social History Smoking Status: Never smoker alcohol intake: never substance use type: does not use what type of physical activity do you participate in: walking, swimming seatbelt use: always do you feel safe at home: Yes additional social history: SUN EXPOSURE: FREQUENTLY HPI evaluation painful scar contour deformity upper back: Details: HISTORY OF PRESENT ILLNESS 52 year old woman presents with complaints of a painful scar contour deformity in her upper back. She initially had excision of a lipoma in 09/19. She developed an infected hematoma which necessitated further surgery on 11/27/17 where she underwent surgical preparation upper back/posterior neck with incision and drainage and excisional debridement infected hematoma (66 cm2). Culture showed MRSYusef that was resistant to Tetracycline. She was placed on Levaquin and finished them. The wound was left open and allowed to heal with wound care and antibiotics and increased nutrition. The wound healed on 03/31/18. Today she denies any fever. She denies any trauma. REVIEW OF SYSTEMS General-denies fever and weight loss. Has some fatigue. Ear nose and throat-has chronic sinus problems. Denies nasal congestion. Denies sore throat. Eyes-denies eye pain. Has cataracts. Endocrine-denies excessive thirst or urination. Skin-has painful scar contour deformity upper back from previous infected hematoma after excision of a lipoma. Has a family history of skin cancer. Musculoskeletal-has joint pain, joint stiffness, weakness of muscles and joints, back pain, and arthritis. Neurologic-has headaches. Cardiovascular-denies chest pain. Has some fatigue. Denies shortness of breath with exertion. Psychiatric-denies anxiety. Has depression. Respiratory-has some shortness of breath. His chronic cough. Has obstructive sleep apnea. Has asthma. Has history of pneumonia. Gastrointestinal-denies nausea, vomiting, and diarrhea. Has constipation. Hematologic-denies abnormal bruising. Denies bleeding. Genitourinary-has urinary frequency. Denies hematuria. Has incontinence. PHYSICAL EXAMINATION General-well developed, well nourished, in no acute distress. HEENT-pupils equal round reactive to light. Extraocular muscles intact. Throat is clear. No suspicious lesions noted. Neck-supple, nontender. No cervical adenopathy. Lungs-clear to auscultation. Heart-regular rate and rhythm. Abdomen-soft and nondistended. Extremities-full range of motion. No axillary adenopathy. No suspicious lesions noted. Back-no bony tenderness. There is a scar contour deformity upper back. Some discomfort with palpation. Measures 9 x 7 cm. No evidence of infection. No ulceration. Neuro-cranial nerves II through XII grossly intact. ASSESSMENT 1. Painful scar contour deformity upper back. 2. Late effect infected hematoma upper back. 3. Family history of skin cancer. 4. History of MRSE. PLAN Patient has painful symptomatology from this painful scar contour deformity with her activities of daily living. Discussed with the patient that during the healing process from her infection, sometimes extra scarring occurs over the underlying muscle that can lead to painful symptomatology. Recommend excision of this painful scar contour deformity and send it to Pathology for analysis to rule out carcinoma and to Microbiology for culture. A positive culture will necessitate antibiotic therapy. She was treated in the past with Levaquin for MRSE. Will apply an NPWT device to help with compression of the graft during the initial healing process. Surgery will be done under general anesthesia on an outpatient basis. She is still recovering from left foot surgery. Will tentatively schedule the surgery for September. Patient was informed of the risks and complications of the procedure including alternatives to surgery. These were discussed with the patient personally. Patient voices understanding and wishes to proceed. Some of the risks and complications were included in a form from the [employer]. Assessment AND Plan Problems 1. Late effect of certain other external causes T75.89XS 2. Contusion of lower back and pelvis, sequela S30.0XXS 3. Family history of skin cancer Z80.8 Coding Level of Care Code Off vis,est,level 3 Diagnoses Late effect of certain other external causes T75.89XS Contusion of lower back and pelvis, sequela S30.0XXS Family history of skin cancer Z80.8 07/28/18 1608 <Electronically signed by Bonilla Alvarez MD> Date Bonilla Alvarez MD Cosigner Signature: Date (if applicable) CC: Everton Cash DO PROGRESS Observed: 07/23/2018 Status: COMPLETED Source: [place] 10:55 AM [facility] REPOSIT[facility] HNO ID: [id number] Author: Kassidy (Rt) Brayan Gloria Service: (none) Author Type: Nuclear [employer]els Research Engineer Type: Progress Notes Filed: 07/23/2018 10:55 AM Note Text: Radiology Service Progress Note PATIENT NAME: Gay Coleman DATE OF SERVICE: July 23, 2018 TIME: 10:55 AM PATIENT IDENTITY VERIFICATION COMPLETED USING TWO (2) METHODS: Patient confirmed name verbally and Date of . PATIENT GENDER DATA: Female. status: : No status: NO. PATIENT RELEVANT IMPLANT DATA REVIEWED: Yes RADIOLOGY DEPARTMENT: MR; Exam(s) Completed: Spine: Lumbar spine PERIPHERAL IV DATA: Not applicable SIGNED BY: RT Zeina July 23, 2018 10:55 AM MRI LUMBAR SPINE WO Observed: 07/23/2018 Status: F Source: [place] IVCON 10:54 AM [facility] REPOSIT[facility] * * *Final Report* * * DATE OF EXAM: Jul 23 2018 10:54AM [facility] [id number] - MRI LUMBAR SPINE WO IVCON / PROCEDURE REASON: multiple diagnoses * * * * Physician Interpretation * * * * EXAMINATION: MRI LUMBAR SPINE WO IVCON CLINICAL HISTORY: Low back pain, bilateral leg weakness TECHNIQUE: Routine lumbosacral spine MR protocol without gadolinium. MQ: [id number] COMPARISON: MRI lumbar spine dated 07/19/2016 RESULT: Counting reference: Lumbosacral junction. For the purposes of this report, L4-5 is considered the level of the iliac crest and there are 5 lumbar-type vertebrae. Anatomic Variants: None. Alignment: Stable straightening of the normal lumbar lordosis. Bone marrow signal/fracture: No evidence of pathologic marrow infiltration. No evidence of prior fracture. Bilateral L3- 4 and L4-5 facet joint effusion Conus: The conus is within normal limits of signal intensity and morphology. Paraspinal soft tissues: Well defined masses are noted in the liver on the clinical field specialist images, likely representing cysts. Lower thoracic spine: Facet hypertrophy contribute to moderate right foraminal stenosis at T10-T11 T12-L1: Canal and foramina are patent. L1-L2: Canal and foramina are patent. L2-L3: Canal and foramina are patent L3-L4: Canal and foramina are patent L4-L5: Disc bulge contribute to mild bilateral foraminal stenosis. Canal is patent. L5-S1: Disc bulge and facet hypertrophy contribute to mild right foraminal stenosis. Sacrum and iliac wings: The visualized sacrum and iliac wings are within normal limits. IMPRESSION: Stable lumbar spondylosis without severe canal or foraminal stenosis. Anatomic Variant: None. L4-5 is considered the level of the iliac crest and assume there are 5 lumbar-type vertebrae. Skydiving Instructor: BHAVNA Transcribe Date/Time: Jul 23 2018 12:50P Dictated by : LEYDA SOTO MD This examination was interpreted and the report reviewed and electronically signed by: MARLYS JOSE MD on Jul 23 2018 2:14PM EST [id number] PROGRESS Observed: 07/22/2018 Status: COMPLETED Source: [place] 11:05 AM [facility] HNO ID: [id number] Author: Ehsan Sterling Service: (none) Author Type: Psychologist Type: Progress Notes Filed: 08/05/2018 12:04 PM Note Text: [facility] Progress Note Gay Castro Sudhakarhoracio 07/22/2018 [id number] Provider: Ehsan Vasquez PSYD CPT Code: 47791 Psychotherapy 38-52 minutes Time: Approximately 45 minutes was spent in therapy. Parties Present: Patient Patient Presentation/Concerns: Queenie indicated some improvements over the past month. She stated that her mood had improved, there was less emotional eating and more empowered. She stated noticing some improvements in her self esteem and self image. She is at 235lbs. She states wanting to do more to reduce her emotional eating and lose weight. She continues to work on healing from surgery and cope with pain. Queenie indicated wanting to also give more in her relationship to her . Mental Status: Mood: neutral Affect: mood-congruent Thoughts/Associations:goal directed Suicidal/Homicidal Ideation: None expressed or evidenced Other Observations: None Therapy Focus Mood/affect regulation MEDICATIONS: Per medical record: Current Outpatient Prescriptions: metoprolol tartrate, short acting, (LOPRESSOR) 25 mg tablet Take 25 mg by mouth twice daily. mirtazapine (REMERON) 30 mg tablet Take 30 mg by mouth daily at bedtime. guselkumab (TREMFYA) 100 mg/mL syrg Inject subcutaneously. lorcaserin (BELVIQ XR) 20 mg Tb24 Take 1 tablet by mouth once daily for 30 days. BMI 36 naltrexone-bupropion (CONTRAVE) 8-90 mg TbER Take 1 tablet by mouth as directed. 2 tablets PO bid clobetasol (TEMOVATE) 0.05 % cream Apply to affected area twice daily. HYDROcodone-acetaminophen (NORCO) 5-325 mg per tablet Take 1 tablet by mouth every 6 hours as needed for Pain. For post op pain per Dr. Velasquez Fill Date: 05/26/18 LINZESS 290 mcg cap TAKE ONE CAPSULE BY MOUTH ONCE DAILY fluticasone (FLONASE) 50 mcg/actuation nasal spray Use 2 Sprays in each nostril once daily. Rinse mouth after use. ADVAIR DISKUS 250-50 mcg/dose dsdv INHALE ONE DOSE BY MOUTH TWICE DAILY. *RINSE AND GARGLE MOUTH WITH WATER AFTER USE* COMPOUNDED PRESCRIPTION Aqua Therapy DX: E66.01; M50.30; M51.36 COMPOUNDED PRESCRIPTION Consult pulmonary rehab estrogens conjugated (PREMARIN) 0.9 mg tablet Take 1 tablet by mouth once daily. pregabalin (LYRICA) 100 mg capsule Take 100 mg by mouth three times daily. buPROPion SR (ZYBAN SR; WELLBUTRIN SR) 150 mg 12 hr tablet Take 1 tablet by mouth twice daily. meclizine (ANTIVERT) 12.5 mg tab Take 1-2 tablets by mouth twice daily as needed (dizziness). albuterol HFA (VENTOLIN HFA) 90 mcg/actuation inhaler Inhale 2 Puffs as instructed every 4 hours as needed for Wheezing/Shortness of Breath. FLUoxetine HCl (PROZAC) 40 mg capsule Take 1 capsule by mouth once daily. mirabegron (MYRBETRIQ) 25 mg Tb24 Take 1 tablet by mouth once daily. albuterol (PROVENTIL) 2.5 mg /3 mL (0.083 %) nebulizer solution Use 3 mL via nebulizer every 4 hours as needed for Wheezing/Shortness of Breath. Use over 5-15minutes. diclofenac, EC, (VOLTAREN) 75 mg EC tablet Take 1 tablet by mouth twice daily. For pain/inflammation. Take with food. PER DR. MALONE diclofenac sodium (VOLTAREN) 1 % topical gel Apply to affected area four times daily. PER DR. MALONE baclofen (LIORESAL) 10 mg tablet Take 1 tablet by mouth twice daily. (Patient taking differently: Take 10 mg by mouth three times daily.) TENS Units malika 1 Device as needed. COMPOUNDED PRESCRIPTION Order: cock up splints (2)Dx: carpal tunnel syndrome bilateral Cholecalciferol, Vitamin D3, 5,000 unit tab Take 5,000 Units by mouth once daily. cyanocobalamin (VITAMIN B-12) 1,000 mcg tab Take 1,000 mcg by mouth once daily. Docusate Sodium 250 mg capsule Take 250 mg by mouth once daily. No current facility-administered medications for this visit. Psychiatric Medication Issues: No change from previous appointment DIAGNOSIS: Depression, recurrent Binge Eating Treatment Modality/Interventions: Cognitive Behavioral TREATMENT ASSESSMENT/PROGRESS: Stable. Queenie noted an improvement in her mood and sense of empowerment. She stated focusing more on friends, and feeling good about beginning to have genuine friends. TREATMENT PLAN/GOALS: Continue in therapy focusing on affect management, CBT for emotional eating. Next appointment: 2 weeks Ehsan Vasquez PSYD PROGRESS Observed: 07/21/2018 Status: COMPLETED Source: [place] 12:29 PM [facility] RE[facility] HNO ID: [id number] Author: Ehsan Sterling Service: (none) Author Type: Psychologist Type: Progress Notes Filed: 07/21/2018 12:35 PM Note Text: [facility] Progress Note Gay Castro [place] 07/14/2018 [id number] Provider: Ehsan Vasquez PSYD CPT Code: 18028 Psychotherapy 38-52 minutes Time: Approximately 45 minutes was spent in therapy. Parties Present: Patient Patient Presentation/Concerns: Sonia reported a slight improvement in her mood with the positive parent interaction she had at her home. Her parents trigger many feelings of rejection, low self worth and abandonment. Queenie spoke about her food addiction. She has been successful in stopping certain behaviors (does not go to [employer], or order double burger). She states struggling with other behaviors. We are working on building on her previous successes. Mental Status: Mood: neutral Affect: mood-congruent Thoughts/Associations:goal directed Suicidal/Homicidal Ideation: None expressed or evidenced Other Observations: None Therapy Focus Mood/affect regulation MEDICATIONS: Per medical record: Current Outpatient Prescriptions: metoprolol tartrate, short acting, (LOPRESSOR) 25 mg tablet Take 25 mg by mouth twice daily. mirtazapine (REMERON) 30 mg tablet Take 30 mg by mouth daily at bedtime. guselkumab (TREMFYA) 100 mg/mL syrg Inject subcutaneously. lorcaserin (BELVIQ XR) 20 mg Tb24 Take 1 tablet by mouth once daily for 30 days. BMI 36 naltrexone-bupropion (CONTRAVE) 8-90 mg TbER Take 1 tablet by mouth as directed. 2 tablets PO bid clobetasol (TEMOVATE) 0.05 % cream Apply to affected area twice daily. HYDROcodone-acetaminophen (NORCO) 5-325 mg per tablet Take 1 tablet by mouth every 6 hours as needed for Pain. For post op pain per Dr. Velasquez Fill Date: 05/26/18 LINZESS 290 mcg cap TAKE ONE CAPSULE BY MOUTH ONCE DAILY fluticasone (FLONASE) 50 mcg/actuation nasal spray Use 2 Sprays in each nostril once daily. Rinse mouth after use. ADVAIR DISKUS 250-50 mcg/dose dsdv INHALE ONE DOSE BY MOUTH TWICE DAILY. *RINSE AND GARGLE MOUTH WITH WATER AFTER USE* COMPOUNDED PRESCRIPTION Aqua Therapy DX: E66.01; M50.30; M51.36 COMPOUNDED PRESCRIPTION Consult pulmonary rehab estrogens conjugated (PREMARIN) 0.9 mg tablet Take 1 tablet by mouth once daily. pregabalin (LYRICA) 100 mg capsule Take 100 mg by mouth three times daily. buPROPion SR (ZYBAN SR; WELLBUTRIN SR) 150 mg 12 hr tablet Take 1 tablet by mouth twice daily. meclizine (ANTIVERT) 12.5 mg tab Take 1-2 tablets by mouth twice daily as needed (dizziness). albuterol HFA (VENTOLIN HFA) 90 mcg/actuation inhaler Inhale 2 Puffs as instructed every 4 hours as needed for Wheezing/Shortness of Breath. FLUoxetine HCl (PROZAC) 40 mg capsule Take 1 capsule by mouth once daily. mirabegron (MYRBETRIQ) 25 mg Tb24 Take 1 tablet by mouth once daily. albuterol (PROVENTIL) 2.5 mg /3 mL (0.083 %) nebulizer solution Use 3 mL via nebulizer every 4 hours as needed for Wheezing/Shortness of Breath. Use over 5-15minutes. diclofenac, EC, (VOLTAREN) 75 mg EC tablet Take 1 tablet by mouth twice daily. For pain/inflammation. Take with food. PER DR. MALONE diclofenac sodium (VOLTAREN) 1 % topical gel Apply to affected area four times daily. PER DR. MALONE baclofen (LIORESAL) 10 mg tablet Take 1 tablet by mouth twice daily. (Patient taking differently: Take 10 mg by mouth three times daily.) TENS Units malika 1 Device as needed. COMPOUNDED PRESCRIPTION Order: cock up splints (2)Dx: carpal tunnel syndrome bilateral Cholecalciferol, Vitamin D3, 5,000 unit tab Take 5,000 Units by mouth once daily. cyanocobalamin (VITAMIN B-12) 1,000 mcg tab Take 1,000 mcg by mouth once daily. Docusate Sodium 250 mg capsule Take 250 mg by mouth once daily. No current facility-administered medications for this visit. Psychiatric Medication Issues: No change from previous appointment DIAGNOSIS: Depression, recurrent Binge Eating Treatment Modality/Interventions: Cognitive Behavioral TREATMENT ASSESSMENT/PROGRESS: Stable TREATMENT PLAN/GOALS: Continue in therapy focusing on affect management, CBT for reducing binge eating Next appointment: 2 weeks Ehsan Vasquez PSYD PROGRESS Observed: 07/15/2018 Status: COMPLETED Source: [place] 6:40 PM [facility] O ID: [id number] Author: Ehsan Sterling Service: (none) Author Type: Psychologist Type: Progress Notes Filed: 07/15/2018 6:46 PM Note Text: [facility] Progress Note Gay Castro [place] 07/07/2018 [id number] Provider: Ehsan Vasquez PSYD CPT Code: 88027 Psychotherapy 38-52 minutes Time: Approximately 45 minutes was spent in therapy. Parties Present: Patient Patient Presentation/Concerns: Queenie's parents came to visit her. This was significant progress. Queenie had been voicing her feelings about them not coming to see her. They came to her home. This was a significant step forward in communicating her need to them and her parents responding. Their reactions/percieved rejection has shaped much of her view of herself and her worth. Discussed how Queenie was able to do communicate in an effective way to make this happen. Queenie was focusing on the negative (they only stated a half hour) vs. the significant positive steps forward. Mental Status: Mood: neutral Affect: mood-congruent Thoughts/Associations:goal directed Suicidal/Homicidal Ideation: None expressed or evidenced Other Observations: None Therapy Focus Mood/affect regulation MEDICATIONS: Per medical record: Current Outpatient Prescriptions: metoprolol tartrate, short acting, (LOPRESSOR) 25 mg tablet Take 25 mg by mouth twice daily. mirtazapine (REMERON) 30 mg tablet Take 30 mg by mouth daily at bedtime. guselkumab (TREMFYA) 100 mg/mL syrg Inject subcutaneously. lorcaserin (BELVIQ XR) 20 mg Tb24 Take 1 tablet by mouth once daily for 30 days. BMI 36 naltrexone-bupropion (CONTRAVE) 8-90 mg TbER Take 1 tablet by mouth as directed. 2 tablets PO bid clobetasol (TEMOVATE) 0.05 % cream Apply to affected area twice daily. HYDROcodone-acetaminophen (NORCO) 5-325 mg per tablet Take 1 tablet by mouth every 6 hours as needed for Pain. For post op pain per Dr. Velasquez Fill Date: 05/26/18 LINZESS 290 mcg cap TAKE ONE CAPSULE BY MOUTH ONCE DAILY fluticasone (FLONASE) 50 mcg/actuation nasal spray Use 2 Sprays in each nostril once daily. Rinse mouth after use. ADVAIR DISKUS 250-50 mcg/dose dsdv INHALE ONE DOSE BY MOUTH TWICE DAILY. *RINSE AND GARGLE MOUTH WITH WATER AFTER USE* COMPOUNDED PRESCRIPTION Aqua Therapy DX: E66.01; M50.30; M51.36 COMPOUNDED PRESCRIPTION Consult pulmonary rehab estrogens conjugated (PREMARIN) 0.9 mg tablet Take 1 tablet by mouth once daily. pregabalin (LYRICA) 100 mg capsule Take 100 mg by mouth three times daily. buPROPion SR (ZYBAN SR; WELLBUTRIN SR) 150 mg 12 hr tablet Take 1 tablet by mouth twice daily. meclizine (ANTIVERT) 12.5 mg tab Take 1-2 tablets by mouth twice daily as needed (dizziness). albuterol HFA (VENTOLIN HFA) 90 mcg/actuation inhaler Inhale 2 Puffs as instructed every 4 hours as needed for Wheezing/Shortness of Breath. FLUoxetine HCl (PROZAC) 40 mg capsule Take 1 capsule by mouth once daily. mirabegron (MYRBETRIQ) 25 mg Tb24 Take 1 tablet by mouth once daily. albuterol (PROVENTIL) 2.5 mg /3 mL (0.083 %) nebulizer solution Use 3 mL via nebulizer every 4 hours as needed for Wheezing/Shortness of Breath. Use over 5-15minutes. diclofenac, EC, (VOLTAREN) 75 mg EC tablet Take 1 tablet by mouth twice daily. For pain/inflammation. Take with food. PER DR. MALONE diclofenac sodium (VOLTAREN) 1 % topical gel Apply to affected area four times daily. PER DR. MALONE baclofen (LIORESAL) 10 mg tablet Take 1 tablet by mouth twice daily. (Patient taking differently: Take 10 mg by mouth three times daily.) TENS Units malika 1 Device as needed. COMPOUNDED PRESCRIPTION Order: cock up splints (2)Dx: carpal tunnel syndrome bilateral Cholecalciferol, Vitamin D3, 5,000 unit tab Take 5,000 Units by mouth once daily. cyanocobalamin (VITAMIN B-12) 1,000 mcg tab Take 1,000 mcg by mouth once daily. Docusate Sodium 250 mg capsule Take 250 mg by mouth once daily. No current facility-administered medications for this visit. Psychiatric Medication Issues: No change from previous appointment DIAGNOSIS: Depression Binge Eating Treatment Modality/Interventions: Cognitive Behavioral TREATMENT ASSESSMENT/PROGRESS: Stable, significant step forward with her family relationship TREATMENT PLAN/GOALS: Continue in therapy focusing on affect management, mindful eating, CBT for depression Next appointment: 2 weeks Ehsan Vasquez PSYD PROGRESS Observed: 07/08/2018 Status: COMPLETED Source: [place] 12:02 PM [facility] O ID: [id number] Author: Everton Acevedo Service: (none) Author Type: Physician Type: Progress Notes Filed: 07/08/2018 12:09 PM Note Text: CC:Gay Coleman is a 52 year old female who presents to the office for knee pain HPI: Right >left knee pain, increased the last 1-2 months since use of the wheeled walker after her left foot injury and 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 She had xrays performed which shows medial compartment of knee narrowing and osteoarthritis changes. She is asking for knee joint injection to help with pain, no skin changes but does get swelling in knee after prolonged walking Is still struggling with low back pain and radiation b/l thighs and lower legs, intermittently changes from left to right, tingling in thighs and b/l leg weakness. Has been going to PHYSICAL THERAPY without much improvement, feels off balance with her gait and low back is really bothering her the last few months, hasn't had recent MRI, hx of L5/S1 disc herniation, has appt locally with spine surgeon Dr. Bullard. No bowel or bladder changes PAST MEDICAL HISTORY Diagnosis Date - Allergic rhinitis, cause unspecified Allergic rhinitis - Asthma - Bloating - Carpal tunnel syndrome, bilateral 10/22/2016 - Constipation - Depressive disorder, not elsewhere classified - Eczema - Impaired fasting glucose 10/2015 - Insomnia Dr Fitzpatrick, on Bipap - Liver cyst 08/2016 benign - Lumbar radiculopathy, chronic L5/S1 - Migraine without aura 12/26/2006 - Mild carpal tunnel syndrome 04/2016 - OAB (overactive bladder) 10/31/2016 - OLGA (obstructive sleep apnea) Dr Fitzpatrick, on Bipap - Other chronic sinusitis - Perimenopausal 11/16/2012 - Psoriasis Gets injections every 3 months for this from Sameer Mata MD - Sensorineural hearing loss [facility] PAST SURGICAL HISTORY Procedure Laterality Date - BREAST BIOPSY Right - CARPAL TUNNEL Bilateral 01/2017 - CATARACT SURGERY, COMPLEX right eye, left eye - COLONOSCOP W/ OR W/O BRSH SPEC 01/26/15 Colonoscopy - EXCISION NOSE POLYP(S),SIMPLE Nasal polypectomy - HYSTERECTOMY HX 2014 TRH with BSO - [facility] HEMATOMA 11/27/2017 incision and drainage of infected hematoma [facility] - PAST SURGICAL HISTORY OF 2015 bilateral foot bxs - PAST SURGICAL HISTORY OF 2014 nasal surgery/Turbinates - PAST SURGICAL HISTORY OF 04/2015 adnexal mass removal- benign - PAST SURGICAL HISTORY OF Bilateral 2011 bilateral breast reduction - PAST SURGICAL HISTORY OF mass removed from neck - PAST SURGICAL HISTORY OF 11/27/2017 [facility] infected hematoma upper back/posterior neck - REMOVAL OF TONSILS,<11 Y/O Tonsillectomy AND adenoidectomy - REPAIR OF NASAL SEPTUM Septoplasty - TORIC LENS left eye Current Outpatient Prescriptions: metoprolol tartrate, short acting, (LOPRESSOR) 25 mg tablet Take 25 mg by mouth twice daily. mirtazapine (REMERON) 30 mg tablet Take 30 mg by mouth daily at bedtime. guselkumab (TREMFYA) 100 mg/mL syrg Inject subcutaneously. clobetasol (TEMOVATE) 0.05 % cream Apply to affected area twice daily. LINZESS 290 mcg cap TAKE ONE CAPSULE BY MOUTH ONCE DAILY fluticasone (FLONASE) 50 mcg/actuation nasal spray Use 2 Sprays in each nostril once daily. Rinse mouth after use. ADVAIR DISKUS 250-50 mcg/dose dsdv INHALE ONE DOSE BY MOUTH TWICE DAILY. *RINSE AND GARGLE MOUTH WITH WATER AFTER USE* COMPOUNDED PRESCRIPTION Consult pulmonary rehab estrogens conjugated (PREMARIN) 0.9 mg tablet Take 1 tablet by mouth once daily. pregabalin (LYRICA) 100 mg capsule Take 100 mg by mouth three times daily. buPROPion SR (ZYBAN SR; WELLBUTRIN SR) 150 mg 12 hr tablet Take 1 tablet by mouth twice daily. albuterol HFA (VENTOLIN HFA) 90 mcg/actuation inhaler Inhale 2 Puffs as instructed every 4 hours as needed for Wheezing/Shortness of Breath. FLUoxetine HCl (PROZAC) 40 mg capsule Take 1 capsule by mouth once daily. albuterol (PROVENTIL) 2.5 mg /3 mL (0.083 %) nebulizer solution Use 3 mL via nebulizer every 4 hours as needed for Wheezing/Shortness of Breath. Use over 5-15minutes. diclofenac, EC, (VOLTAREN) 75 mg EC tablet Take 1 tablet by mouth twice daily. For pain/inflammation. Take with food. PER DR. MALONE diclofenac sodium (VOLTAREN) 1 % topical gel Apply to affected area four times daily. PER DR. MALONE baclofen (LIORESAL) 10 mg tablet Take 1 tablet by mouth twice daily. (Patient taking differently: Take 10 mg by mouth three times daily.) COMPOUNDED PRESCRIPTION Order: cock up splints (2)Dx: carpal tunnel syndrome bilateral Cholecalciferol, Vitamin D3, 5,000 unit tab Take 5,000 Units by mouth once daily. cyanocobalamin (VITAMIN B-12) 1,000 mcg tab Take 1,000 mcg by mouth once daily. Docusate Sodium 250 mg capsule Take 250 mg by mouth once daily. lorcaserin (BELVIQ XR) 20 mg Tb24 Take 1 tablet by mouth once daily for 30 days. BMI 36 naltrexone-bupropion (CONTRAVE) 8-90 mg TbER Take 1 tablet by mouth as directed. 2 tablets PO bid HYDROcodone-acetaminophen (NORCO) 5-325 mg per tablet Take 1 tablet by mouth every 6 hours as needed for Pain. For post op pain per Dr. Velasquez Fill Date: 05/26/18 COMPOUNDED PRESCRIPTION Aqua Therapy DX: E66.01; M50.30; M51.36 meclizine (ANTIVERT) 12.5 mg tab Take 1-2 tablets by mouth twice daily as needed (dizziness). mirabegron (MYRBETRIQ) 25 mg Tb24 Take 1 tablet by mouth once daily. TENS Units malika 1 Device as needed. Current Facility-Administered Medications: triamcinolone acetonide 40 mg injection (KENALOG 40) 40 mg INTRA-ARTICULAR ONCE ALLERGIES Allergen Reactions - Dust - Nabumetone GI Upset - Seasonal Allergies Other: See Comments - Smoke - Thimerisol [Thimero* Intolerance Social History Marital status: Spouse name: Inocente Years of education: 14 Number of children: 0 Occupational History Occupation Employer [employer] [employer] Social History Main Topics Smoking status: Never Smoker Smokeless tobacco: Never Used Alcohol use: No Drug use: No Sexual activity: Yes Partners with: Male Social History Narrative 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 Uvula midline. Neck: No LAD, no thyromegaly, no meningismus. CV: RRR, no murmur Lungs: CTA b/l, no wheezing Skin: No rashes, lesions, or wounds on exposed skin. Weakness b/l thighs with flexion, gait is imbalanced, negative Romberg B/l SI joint and lumbar paraspinal TTP DTRs 2/4 b/l patella Right knee b/l joint line TTP with mild effusion present, no skin changes UNIVERSAL PROTOCOL / SAFETY CHECKLIST Procedure to be performed: right knee corticosteroid injection Sign in Communication: Completed Time Out: Team Confirms the Correct Patient, Correct Procedure, Correct Site and Site Marking, Correct Position (if applicable), Prep and Dry Time (if applicable). Time: 1140 Affirmation of Time Out: YES Sign Out Discussion: Completed Everton Acevedo DO INFORMED CONSENT Gay Coleman Medical Record: [id number] Date: 07/08/2018 Procedure:right knee corticosteroid joint injection The risks, benefits and anticipated outcomes of the procedure, the risks and benefits of the alternatives to the procedure and the roles and tasks of the personnel to be involved were discussed with the patient and the patient consents to the procedure and agrees to proceed. I verify that I personally obtained Gay Coleman's consent. Everton Acevedo DO Dept of [facility] Procedure: After discussing the risks, complications, and benefits of corticosteroid injection, as well as alternative treatments, the patient agreed to proceed. Under sterile prep, the Right: 1 knee was injected with 3 cc of 1% Lidocaine, and 1cc of Kenalog 40 mg. There were no complications, and good pain relief was achieved. ASSESSMENT/PLAN: 1. Chronic pain of right knee - ICD9: 719.46, 338.29, ICD10: M25.561, G89.29 (primary diagnosis) - corticosteroid injection today in office, tolerated well, aware of need for icing and rest for 48 hours - TRIAMCINOLONE ACETONIDE 40 MG/ML SUSPENSION FOR INJECTION 2. Primary osteoarthritis of right knee - ICD9: 715.16, ICD10: M17.11 - see above - TRIAMCINOLONE ACETONIDE 40 MG/ML SUSPENSION FOR INJECTION 3. Herniated nucleus pulposus, L5-S1 - ICD9: 722.10, ICD10: M51.27 Sciatica - Warm moist heat for 20 min three times a day - NSAIDS- see orders - MRI- see orders - f/u with spine surgeon - MRI LUMBAR SPINE WO IVCON 4. DDD (degenerative disc disease), lumbar - ICD9: 722.52, ICD10: M51.36 Sciatica - Warm moist heat for 20 min three times a day - NSAIDS- see orders - MRI- see orders - f/u with spine surgeon - MRI LUMBAR SPINE WO IVCON 5. Weakness of both legs - ICD9: 729.89, ICD10: R29.898 Sciatica - Warm moist heat for 20 min three times a day - NSAIDS- see orders - MRI- see orders - f/u with spine surgeon - MRI LUMBAR SPINE WO IVCON 6. Balance disorder - ICD9: 781.99, ICD10: R26.89 Sciatica - Warm moist heat for 20 min three times a day - NSAIDS- see orders - MRI- see orders - f/u with spine surgeon - MRI LUMBAR SPINE WO IVCON 7. Chronic left-sided low back pain with bilateral sciatica - ICD9: 724.2, 724.3, 338.29, ICD10: M54.41, M54.42, G89.29 Sciatica - Warm moist heat for 20 min three times a day - NSAIDS- see orders - MRI- see orders - f/u with spine surgeon - MRI LUMBAR SPINE WO IVCON 8. Spinal stenosis of lumbar region, unspecified whether neurogenic claudication present - ICD9: 724.02, ICD10: M48.061 Sciatica - Warm moist heat for 20 min three times a day - NSAIDS- see orders - MRI- see orders - f/u with spine surgeon - MRI LUMBAR SPINE WO IVCON 9. Obesity, Class II, BMI 35-39.9 - ICD9: 278.00, ICD10: E66.9 - Lengthy discussion in office today regarding diet and exercise. Discussed use of small plate to eat meals from, drink 1 glass of water 10-15 minutes prior to eating meal, drink 8 glasses of water daily, eat fresh fruit and vegetable during meal first then lean protein such as grilled/baked chicken breast or fish, limit carbohydrate intake (less pasta, breads, rice and snack foods) as well as limiting sugars (desserts etc). Important to count / track your calories and exercise as well. - need for weight loss, unable to afford Contrave, can consider trial of Belviq, information and risks d/w her today - LORCASERIN ER 20 MG TABLET,EXTENDED RELEASE 24 HR Everton Acevedo DO Return if no improvement. Follow up with Everton Acevedo DO. Discussed risks, benefits, alternatives, and potential side effects of medications. Patient/Guardian expressed understanding and agreed with the plan. See patient instructions. Everton Acevedo DO [address] [place] [address] CNOV Observed: 07/08/2018 Status: COMPLETED Source: [place] 11:00 AM [facility] REPOSITORY Office Visit (FAMPWS) GAY COLEMAN ([id number]) 1965 F Date Time Provider Department 07/08/18 11:00 AM EVERTON ACEVEDO FAMPWS During your visit today, we recorded the following information about you: Temperature Pulse Respiration Blood pressure 97.9 degrees 72/minute 20/minute 116/70 Weight 106.1 kg Everton Acevedo DO 07/08/2018 12:09 PM Signed CC:Gay Coleman is a 52 year old female who presents to the office for knee pain HPI: Right >left knee pain, increased the last 1-2 months since use of the wheeled walker after her left foot injury and 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 She had xrays performed which shows medial compartment of knee narrowing and osteoarthritis changes. She is asking for knee joint injection to help with pain, no skin changes but does get swelling in knee after prolonged walking Is still struggling with low back pain and radiation b/l thighs and lower legs, intermittently changes from left to right, tingling in thighs and b/l leg weakness. Has been going to PHYSICAL THERAPY without much improvement, feels off balance with her gait and low back is really bothering her the last few months, hasn't had recent MRI, hx of L5/S1 disc herniation, has appt locally with spine surgeon Dr. Bullard. No bowel or bladder changes PAST MEDICAL HISTORY Diagnosis Date - Allergic rhinitis, cause unspecified Allergic rhinitis - Asthma - Bloating - Carpal tunnel syndrome, bilateral 10/22/2016 - Constipation - Depressive disorder, not elsewhere classified - Eczema - Impaired fasting glucose 10/2015 - Insomnia Dr Fitzpatrick, on Bipap - Liver cyst 08/2016 benign - Lumbar radiculopathy, chronic L5/S1 - Migraine without aura 12/26/2006 - Mild carpal tunnel syndrome 04/2016 - OAB (overactive bladder) 10/31/2016 - OLGA (obstructive sleep apnea) Dr Fitzpatrick, on Bipap - Other chronic sinusitis - Perimenopausal 11/16/2012 - Psoriasis Gets injections every 3 months for this from Sameer Mata MD - Sensorineural hearing loss [place] PAST SURGICAL HISTORY Procedure Laterality Date - BREAST BIOPSY Right - CARPAL TUNNEL Bilateral 01/2017 - CATARACT SURGERY, COMPLEX right eye, left eye - COLONOSCOP W/ OR W/O BRSH SPEC 01/26/15 Colonoscopy - EXCISION NOSE POLYP(S),SIMPLE Nasal polypectomy - HYSTERECTOMY HX 2014 TRH with BSO - IANDD HEMATOMA 11/27/2017 incision and drainage of infected hematoma [facility] - PAST SURGICAL HISTORY OF 2014 bilateral foot bxs - PAST SURGICAL HISTORY OF 2014 nasal surgery/Turbinates - PAST SURGICAL HISTORY OF 04/2015 adnexal mass removal- benign - PAST SURGICAL HISTORY OF Bilateral 2011 bilateral breast reduction - PAST SURGICAL HISTORY OF mass removed from neck - PAST SURGICAL HISTORY OF 11/27/2017 IANDD infected hematoma upper back/posterior neck - REMOVAL OF TONSILS,<12 Y/O Tonsillectomy AND adenoidectomy - REPAIR OF NASAL SEPTUM Septoplasty - TORIC LENS left eye Current Outpatient Prescriptions: metoprolol tartrate, short acting, (LOPRESSOR) 25 mg tablet Take 25 mg by mouth twice daily. mirtazapine (REMERON) 30 mg tablet Take 30 mg by mouth daily at bedtime. guselkumab (TREMFYA) 100 mg/mL syrg Inject subcutaneously. clobetasol (TEMOVATE) 0.05 % cream Apply to affected area twice daily. LINZESS 290 mcg cap TAKE ONE CAPSULE BY MOUTH ONCE DAILY fluticasone (FLONASE) 50 mcg/actuation nasal spray Use 2 Sprays in each nostril once daily. Rinse mouth after use. ADVAIR DISKUS 250-50 mcg/dose dsdv INHALE ONE DOSE BY MOUTH TWICE DAILY. *RINSE AND GARGLE MOUTH WITH WATER AFTER USE* COMPOUNDED PRESCRIPTION Consult pulmonary rehab estrogens conjugated (PREMARIN) 0.9 mg tablet Take 1 tablet by mouth once daily. pregabalin (LYRICA) 100 mg capsule Take 100 mg by mouth three times daily. buPROPion SR (ZYBAN SR; WELLBUTRIN SR) 150 mg 12 hr tablet Take 1 tablet by mouth twice daily. albuterol HFA (VENTOLIN HFA) 90 mcg/actuation inhaler Inhale 2 Puffs as instructed every 4 hours as needed for Wheezing/Shortness of Breath. FLUoxetine HCl (PROZAC) 40 mg capsule Take 1 capsule by mouth once daily. albuterol (PROVENTIL) 2.5 mg /3 mL (0.083 %) nebulizer solution Use 3 mL via nebulizer every 4 hours as needed for Wheezing/Shortness of Breath. Use over 5-15minutes. diclofenac, EC, (VOLTAREN) 75 mg EC tablet Take 1 tablet by mouth twice daily. For pain/inflammation. Take with food. PER DR. MALONE diclofenac sodium (VOLTAREN) 1 % topical gel Apply to affected area four times daily. PER DR. MALONE baclofen (LIORESAL) 10 mg tablet Take 1 tablet by mouth twice daily. (Patient taking differently: Take 10 mg by mouth three times daily.) COMPOUNDED PRESCRIPTION Order: cock up splints (2)Dx: carpal tunnel syndrome bilateral Cholecalciferol, Vitamin D3, 5,000 unit tab Take 5,000 Units by mouth once daily. cyanocobalamin (VITAMIN B-12) 1,000 mcg tab Take 1,000 mcg by mouth once daily. Docusate Sodium 250 mg capsule Take 250 mg by mouth once daily. lorcaserin (BELVIQ XR) 20 mg Tb24 Take 1 tablet by mouth once daily for 30 days. BMI 36 naltrexone-bupropion (CONTRAVE) 8-90 mg TbER Take 1 tablet by mouth as directed. 2 tablets PO bid HYDROcodone-acetaminophen (NORCO) 5-325 mg per tablet Take 1 tablet by mouth every 6 hours as needed for Pain. For post op pain per Dr. Velasquez Fill Date: 05/26/18 COMPOUNDED PRESCRIPTION Aqua Therapy DX: E66.01; M50.30; M51.36 meclizine (ANTIVERT) 12.5 mg tab Take 1-2 tablets by mouth twice daily as needed (dizziness). mirabegron (MYRBETRIQ) 25 mg Tb24 Take 1 tablet by mouth once daily. TENS Units malika 1 Device as needed. Current Facility-Administered Medications: triamcinolone acetonide 40 mg injection (KENALOG 40) 40 mg INTRA-ARTICULAR ONCE ALLERGIES Allergen Reactions - Dust - Nabumetone GI Upset - Seasonal Allergies Other: See Comments - Smoke - Thimerisol [Thimero* Intolerance Social History Marital status: Spouse name: Inocente Years of education: 14 Number of children: 0 Occupational History Occupation Employer [employer] Social History Main Topics Smoking status: Never Smoker Smokeless tobacco: Never Used Alcohol use: No Drug use: No Sexual activity: Yes Partners with: Male Social History Narrative 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 Uvula midline. Neck: No LAD, no thyromegaly, no meningismus. CV: RRR, no murmur Lungs: CTA b/l, no wheezing Skin: No rashes, lesions, or wounds on exposed skin. Weakness b/l thighs with flexion, gait is imbalanced, negative Romberg B/l SI joint and lumbar paraspinal TTP DTRs 2/4 b/l patella Right knee b/l joint line TTP with mild effusion present, no skin changes UNIVERSAL PROTOCOL / SAFETY CHECKLIST Procedure to be performed: right knee corticosteroid injection Sign in Communication: Completed Time Out: Team Confirms the Correct Patient, Correct Procedure, Correct Site and Site Marking, Correct Position (if applicable), Prep and Dry Time (if applicable). Time: 1140 Affirmation of Time Out: YES Sign Out Discussion: Completed Everton Acevedo DO INFORMED CONSENT Gay Lovinghoracio Medical Record: [id number] Date: 07/08/2018 Procedure:right knee corticosteroid joint injection The risks, benefits and anticipated outcomes of the procedure, the risks and benefits of the alternatives to the procedure and the roles and tasks of the personnel to be involved were discussed with the patient and the patient consents to the procedure and agrees to proceed. I verify that I personally obtained Gay Coleman's consent. Everton Acevedo DO Dept of [facility] Procedure: After discussing the risks, complications, and benefits of corticosteroid injection, as well as alternative treatments, the patient agreed to proceed. Under sterile prep, the Right: 1 knee was injected with 3 cc of 1% Lidocaine, and 1cc of Kenalog 40 mg. There were no complications, and good pain relief was achieved. ASSESSMENT/PLAN: 1. Chronic pain of right knee - ICD9: 719.46, 338.29, ICD10: M25.561, G89.29 (primary diagnosis) - corticosteroid injection today in office, tolerated well, aware of need for icing and rest for 48 hours - TRIAMCINOLONE ACETONIDE 40 MG/ML SUSPENSION FOR INJECTION 2. Primary osteoarthritis of right knee - ICD9: 715.16, ICD10: M17.11 - see above - TRIAMCINOLONE ACETONIDE 40 MG/ML SUSPENSION FOR INJECTION 3. Herniated nucleus pulposus, L5-S1 - ICD9: 722.10, ICD10: M51.27 Sciatica - Warm moist heat for 20 min three times a day - NSAIDS- see orders - MRI- see orders - f/u with spine surgeon - MRI LUMBAR SPINE WO IVCON 4. DDD (degenerative disc disease), lumbar - ICD9: 722.52, ICD10: M51.36 Sciatica - Warm moist heat for 20 min three times a day - NSAIDS- see orders - MRI- see orders - f/u with spine surgeon - MRI LUMBAR SPINE WO IVCON 5. Weakness of both legs - ICD9: 729.89, ICD10: R29.898 Sciatica - Warm moist heat for 20 min three times a day - NSAIDS- see orders - MRI- see orders - f/u with spine surgeon - MRI LUMBAR SPINE WO IVCON 6. Balance disorder - ICD9: 781.99, ICD10: R26.89 Sciatica - Warm moist heat for 20 min three times a day - NSAIDS- see orders - MRI- see orders - f/u with spine surgeon - MRI LUMBAR SPINE WO IVCON 7. Chronic left-sided low back pain with bilateral sciatica - ICD9: 724.2, 724.3, 338.29, ICD10: M54.41, M54.42, G89.29 Sciatica - Warm moist heat for 20 min three times a day - NSAIDS- see orders - MRI- see orders - f/u with spine surgeon - MRI LUMBAR SPINE WO IVCON 8. Spinal stenosis of lumbar region, unspecified whether neurogenic claudication present - ICD9: 724.02, ICD10: M48.061 Sciatica - Warm moist heat for 20 min three times a day - NSAIDS- see orders - MRI- see orders - f/u with spine surgeon - MRI LUMBAR SPINE WO IVCON 9. Obesity, Class II, BMI 35-39.9 - ICD9: 278.00, ICD10: E66.9 - Lengthy discussion in office today regarding diet and exercise. Discussed use of small plate to eat meals from, drink 1 glass of water 10- 15 minutes prior to eating meal, drink 8 glasses of water daily, eat fresh fruit and vegetable during meal first then lean protein such as grilled/baked chicken breast or fish, limit carbohydrate intake (less pasta, breads, rice and snack foods) as well as limiting sugars (desserts etc). Important to count / track your calories and exercise as well. - need for weight loss, unable to afford Contrave, can consider trial of Belviq, information and risks d/w her today - LORCASERIN ER 20 MG TABLET,EXTENDED RELEASE 24 HR Everton Acevedo DO Return if no improvement. Follow up with Everton Acevedo DO. Discussed risks, benefits, alternatives, and potential side effects of medications. Patient/Guardian expressed understanding and agreed with the plan. See patient instructions. Everton Acevedo DO [address] [place] [address] Referring Provider: KAY VILLALOBOS ([facility]) [[id number]] Allergies As of Date: 07/08/2018 Noted Allergy Reaction DUST 12/26/2006 NABUMETONE 10/04/2014 8 - GI Upset SEASONAL ALLERGIES 06/19/2015 14 - Other: See Comments SMOKE 12/26/2006 THIMERISOL (THIMEROSAL) 01/09/2016 5 - Intolerance Date Reviewed: 05/29/2018 Reviewed by: Ehsan Laboy LPN - Fully Assessed Reason for Visit: Knee Pain [132] Cmt: right side injection Primary Visit Diagnosis:Chronic pain of right knee [M25.561, G89.29] Other Visit Diagnoses:Primary osteoarthritis of right knee [M17.11] Herniated nucleus pulposus, L5-S1 [M51.27] DDD (degenerative disc disease), lumbar [M51.36] Weakness of both legs [R29.898] Balance disorder [R26.89] Chronic left-sided low back pain with bilateral sciatica [M54.41, M54.42, G89.29] Spinal stenosis of lumbar region, unspecified whether neurogenic claudication present [M48.061] Obesity, Class II, BMI 35-39.9 [E66.9] Order(s):MRI LUMBAR SPINE WO NEVAON [[id number]] Order #: [id number] FUTURE triamcinolone acetonide 40 mg injection (KENALOG 40)Disp: Rfl: lorcaserin (BELVIQ XR) 20 mg Ls85Fpyl 1 tablet by mouth once daily for 30 days. BMI 36Disp: 30 tabletRfl: 0 Prescriptions as of 07/08/2018 Sig: METOPROLOL TARTRATE 25 MG TAB* Take 25 mg by mouth twice sudhakar* MIRTAZAPINE 30 MG TABLET Take 30 mg by mouth daily at * GUSELKUMAB 100 MG/ML SUBCUTAN* Inject subcutaneously. CLOBETASOL 0.05 % TOPICAL CRE* Apply to affected area twice * LINZESS 290 MCG CAPSULE TAKE ONE CAPSULE BY MOUTH ONC* FLUTICASONE 50 MCG/ACTUATION * Use 2 Sprays in each nostril * ADVAIR DISKUS 250 MCG-50 MCG/* INHALE ONE DOSE BY MOUTH TWIC* COMPOUNDED PRESCRIPTION Consult pulmonary rehab CONJUGATED ESTROGENS 0.9 MG T* Take 1 tablet by mouth once d* PREGABALIN 100 MG CAPSULE Take 100 mg by mouth three ti* BUPROPION HCL SR 150 MG TABLE* Take 1 tablet by mouth twice * ALBUTEROL SULFATE HFA 90 MCG/* Inhale 2 Puffs as instructed * FLUOXETINE 40 MG CAPSULE Take 1 capsule by mouth once * ALBUTEROL SULFATE 2.5 MG/3 ML* Use 3 mL via nebulizer every * DICLOFENAC SODIUM 75 MG TABLE* Take 1 tablet by mouth twice * DICLOFENAC 1 % TOPICAL GEL Apply to affected area four * BACLOFEN 10 MG TABLET Take 1 tablet by mouth twice * Patient taking differently: Take 10 mg by mouth three justino* COMPOUNDED PRESCRIPTION Order: cock up splints (2) D* CHOLECALCIFEROL (VITAMIN D3) * Take 5,000 Units by mouth onc* CYANOCOBALAMIN (VIT B-12) 1,0* Take 1,000 mcg by mouth once * DOCUSATE SODIUM 250 MG CAPSULE Take 250 mg by mouth once sudhakar* LORCASERIN ER 20 MG TABLET,EX* Take 1 tablet by mouth once d* NALTREXONE 8 MG-BUPROPION 90 * Take 1 tablet by mouth as dir* HYDROCODONE 5 MG-ACETAMINOPHE* Take 1 tablet by mouth every * COMPOUNDED PRESCRIPTION Aqua Therapy DX: E66.01; M5* MECLIZINE 12.5 MG TABLET Take 1-2 tablets by mouth twi* MIRABEGRON ER 25 MG TABLET,EX* Take 1 tablet by mouth once d* TRANSCUTANEOUS ELECTRICAL NER* 1 Device as needed. Medication notes this encounter COMPOUNDED PRESCRIPTION >> Ehsan Laboy LPN 07/08/2018 11:24 AM >> EHSAN LABOY LPN FriJul 08, 2018 11:24 AM finished Problem List As Of Date 07/08/2018 Noted Resolved Migraine without aura [346.1] INVALID FOR*07/28/2017 Dysthymia [F34.1] INVALID FOR* Perimenopausal [N95.1] INVALID FOR*07/28/2017 Breast hypertrophy [N62] INVALID FOR* Bloating [R14.0] Constipation [K59.00] Adnexal mass [N94.9] INVALID FOR*10/31/2016 Flatulence, eructation, and gas pain [R14.3, R1*INVALID FOR*01/26/2015 Unspecified constipation [K59.00] INVALID FOR*01/26/2015 Midline low back pain without sciatica [M54.5] INVALID FOR* Intervertebral disc disorder with radiculopathy*INVALID FOR* DDD (degenerative disc disease), lumbar [M51.36]INVALID FOR* Cervical disc disorder with radiculopathy [M50.*INVALID FOR* DDD (degenerative disc disease), cervical [M50.*INVALID FOR* Carpal tunnel syndrome, bilateral [G56.03] INVALID FOR*07/28/2017 Asthma [J45.909] INVALID FOR*01/20/2018 OLGA (obstructive sleep apnea) [G47.33] INVALID FOR* More... Psoriasis [L40.9] INVALID FOR* OAB (overactive bladder) [N32.81] INVALID FOR* Impaired fasting glucose [R73.01] INVALID FOR* Exercise-induced asthma [J45.990] INVALID FOR* Obesity, Class III, BMI 40-49.9 (morbid obesity*INVALID FOR* Irritable bowel syndrome with constipation [K58*INVALID FOR* ANDREW (generalized anxiety disorder) [F41.1] INVALID FOR* Neck mass [R22.1] INVALID FOR* Weakness of both legs [R29.898] INVALID FOR* Herniated nucleus pulposus, L5-S1 [M51.27] INVALID FOR* Prescriptions ordered this encounter Disp Refills Start End TRIAMCINOLONE ACETONIDE 40 MG/ML ELODIA* 07/08/2018 07/08/2018 Route: IAtc LORCASERIN ER 20 MG TABLET,EXTENDED * 30 t* 0 07/08/2018 08/07/2018 Class: Print RX Route: ORAL Sig: Take 1 tablet by mouth once daily for 30 days. BMI 36 Encounter Status:Closed by EVERTON ACEVEDO DO on 07/08/18 PROGRESS Observed: 07/01/2018 Status: COMPLETED Source: [place] 12:18 PM [facility] REPOSITORY HNO ID: [id number] Author: Ehsan Sterling Service: (none) Author Type: Psychologist Type: Progress Notes Filed: 07/15/2018 3:52 PM Note Text: [facility] Progress Note Gay Coleman 07/01/2018 [id number] Provider: Ehsan Vasquez PSYD CPT Code: 82066 Psychotherapy 38-52 minutes Time: Approximately 45 minutes was spent in therapy. Parties Present: Patient Patient Presentation/Concerns: Queenie indicated that she is still struggling with her mother. Discussed Queenie's expectations, her anger and taking it out on herself with overeating. Her mother called her. Queenie seeks acknowledgement of her feelings. She stated losing weight and being at 233 and now she is back to 237. She states hoping to stop the self-sabotague as soon as possible. Discussed self care, coping with pain in her back and legs in healthy ways etc. Mental Status: Mood: depressed Affect: mood-congruent Thoughts/Associations:goal directed Suicidal/Homicidal Ideation: None expressed or evidenced Other Observations: None Therapy Focus Mood/affect regulation MEDICATIONS: Per medical record: Current Outpatient Prescriptions: naltrexone-bupropion (CONTRAVE) 8-90 mg TbER Take 1 tablet by mouth as directed. 2 tablets PO bid clobetasol (TEMOVATE) 0.05 % cream Apply to affected area twice daily. HYDROcodone-acetaminophen (NORCO) 5-325 mg per tablet Take 1 tablet by mouth every 6 hours as needed for Pain. For post op pain per Dr. Velasquez Fill Date: 05/26/18 LINZESS 290 mcg cap TAKE ONE CAPSULE BY MOUTH ONCE DAILY fluticasone (FLONASE) 50 mcg/actuation nasal spray Use 2 Sprays in each nostril once daily. Rinse mouth after use. ADVAIR DISKUS 250-50 mcg/dose dsdv INHALE ONE DOSE BY MOUTH TWICE DAILY. *RINSE AND GARGLE MOUTH WITH WATER AFTER USE* COMPOUNDED PRESCRIPTION Aqua Therapy DX: E66.01; M50.30; M51.36 COMPOUNDED PRESCRIPTION Consult pulmonary rehab estrogens conjugated (PREMARIN) 0.9 mg tablet Take 1 tablet by mouth once daily. pregabalin (LYRICA) 100 mg capsule Take 100 mg by mouth three times daily. buPROPion SR (ZYBAN SR; WELLBUTRIN SR) 150 mg 12 hr tablet Take 1 tablet by mouth twice daily. meclizine (ANTIVERT) 12.5 mg tab Take 1-2 tablets by mouth twice daily as needed (dizziness). albuterol HFA (VENTOLIN HFA) 90 mcg/actuation inhaler Inhale 2 Puffs as instructed every 4 hours as needed for Wheezing/Shortness of Breath. FLUoxetine HCl (PROZAC) 40 mg capsule Take 1 capsule by mouth once daily. mirabegron (MYRBETRIQ) 25 mg Tb24 Take 1 tablet by mouth once daily. albuterol (PROVENTIL) 2.5 mg /3 mL (0.083 %) nebulizer solution Use 3 mL via nebulizer every 4 hours as needed for Wheezing/Shortness of Breath. Use over 5-15minutes. diclofenac, EC, (VOLTAREN) 75 mg EC tablet Take 1 tablet by mouth twice daily. For pain/inflammation. Take with food. PER DR. MALONE diclofenac sodium (VOLTAREN) 1 % topical gel Apply to affected area four times daily. PER DR. MALONE baclofen (LIORESAL) 10 mg tablet Take 1 tablet by mouth twice daily. (Patient taking differently: Take 10 mg by mouth three times daily.) TENS Units malika 1 Device as needed. COMPOUNDED PRESCRIPTION Order: cock up splints (2)Dx: carpal tunnel syndrome bilateral Cholecalciferol, Vitamin D3, 5,000 unit tab Take 5,000 Units by mouth once daily. cyanocobalamin (VITAMIN B-12) 1,000 mcg tab Take 1,000 mcg by mouth once daily. Docusate Sodium 250 mg capsule Take 250 mg by mouth once daily. No current facility-administered medications for this visit. Psychiatric Medication Issues: No change from previous appointment DIAGNOSIS: Depression, recurrent Binge Eating Disorder Treatment Modality/Interventions: Cognitive Behavioral TREATMENT ASSESSMENT/PROGRESS: Stable TREATMENT PLAN/GOALS: Continue in therapy focusing on affect management, self care, healthy coping, letting go of expectations of her mother. Next appointment: 2 weeks Ehsan Vasquez PSYD PROGRESS Observed: 06/25/2018 Status: COMPLETED Source: [place] 3:00 PM [facility] REPOSITORY HNO ID: [id number] Author: Ehsan Sterling Service: (none) Author Type: Psychologist Type: Progress Notes Filed: 06/25/2018 3:04 PM Note Text: [facility] Progress Note Gay Coleman 06/17/2018 [id number] Provider: Ehsan Vasquez PSYD CPT Code: 43825 Psychotherapy 38-52 minutes Time: Approximately 45 minutes was spent in therapy. Parties Present: Patient Patient Presentation/Concerns: Queenie indicated that she is still recovering from her illness. She spoke a great deal about her and how he receives the brunt of her anger and disappointment. Discussed how to invest in her who has been her primary caregiver during her illness and her friend, Margarita. Devote more energy to current positive relationships than past negative ones. Mental Status: Mood: neutral Affect: mood-congruent Thoughts/Associations:goal directed Suicidal/Homicidal Ideation: None expressed or evidenced Other Observations: Therapy Focus Mood/affect regulation MEDICATIONS: Per medical record: Current Outpatient Prescriptions: clobetasol (TEMOVATE) 0.05 % cream Apply to affected area twice daily. HYDROcodone-acetaminophen (NORCO) 5-325 mg per tablet Take 1 tablet by mouth every 6 hours as needed for Pain. For post op pain per Dr. Velasquez Fill Date: 05/26/18 naltrexone-bupropion (CONTRAVE) 8-90 mg TbER Take 1 tablet by mouth as directed. Week 1 take 1 tab in the morningWeek 2 take 1 tab in the morning and 1 in the eveningWeek 3 take 2 tabs in the morning and 1 tab in the eveningWeek 4 take 2 tabs in the morning and 2 tabs in the eveningWeek 5+ 2 tabsin the morning and 2 tabs in the evening LINZESS 290 mcg cap TAKE ONE CAPSULE BY MOUTH ONCE DAILY fluticasone (FLONASE) 50 mcg/actuation nasal spray Use 2 Sprays in each nostril once daily. Rinse mouth after use. ADVAIR DISKUS 250-50 mcg/dose dsdv INHALE ONE DOSE BY MOUTH TWICE DAILY. *RINSE AND GARGLE MOUTH WITH WATER AFTER USE* COMPOUNDED PRESCRIPTION Aqua Therapy DX: E66.01; M50.30; M51.36 COMPOUNDED PRESCRIPTION Consult pulmonary rehab estrogens conjugated (PREMARIN) 0.9 mg tablet Take 1 tablet by mouth once daily. pregabalin (LYRICA) 100 mg capsule Take 100 mg by mouth three times daily. buPROPion SR (ZYBAN SR; WELLBUTRIN SR) 150 mg 12 hr tablet Take 1 tablet by mouth twice daily. meclizine (ANTIVERT) 12.5 mg tab Take 1-2 tablets by mouth twice daily as needed (dizziness). albuterol HFA (VENTOLIN HFA) 90 mcg/actuation inhaler Inhale 2 Puffs as instructed every 4 hours as needed for Wheezing/Shortness of Breath. FLUoxetine HCl (PROZAC) 40 mg capsule Take 1 capsule by mouth once daily. mirabegron (MYRBETRIQ) 25 mg Tb24 Take 1 tablet by mouth once daily. albuterol (PROVENTIL) 2.5 mg /3 mL (0.083 %) nebulizer solution Use 3 mL via nebulizer every 4 hours as needed for Wheezing/Shortness of Breath. Use over 5-15minutes. diclofenac, EC, (VOLTAREN) 75 mg EC tablet Take 1 tablet by mouth twice daily. For pain/inflammation. Take with food. PER DR. MALONE diclofenac sodium (VOLTAREN) 1 % topical gel Apply to affected area four times daily. PER DR. MALONE baclofen (LIORESAL) 10 mg tablet Take 1 tablet by mouth twice daily. (Patient taking differently: Take 10 mg by mouth three times daily.) TENS Units malika 1 Device as needed. COMPOUNDED PRESCRIPTION Order: cock up splints (2)Dx: carpal tunnel syndrome bilateral Cholecalciferol, Vitamin D3, 5,000 unit tab Take 5,000 Units by mouth once daily. cyanocobalamin (VITAMIN B-12) 1,000 mcg tab Take 1,000 mcg by mouth once daily. Docusate Sodium 250 mg capsule Take 250 mg by mouth once daily. No current facility-administered medications for this visit. Psychiatric Medication Issues: No change from previous appointment DIAGNOSIS: Depression Binge Eating Treatment Modality/Interventions: Cognitive Behavioral TREATMENT ASSESSMENT/PROGRESS: Stable TREATMENT PLAN/GOALS: Continue in therapy focusing on relationship with , improving communication and affect management. CBT for binge eating. Next appointment: 2 weeks Ehsan Vasquez PSYD PROGRESS Observed: 06/24/2018 Status: COMPLETED Source: [place] 11:02 AM [facility] [place] REPOSITORY HNO ID: [id number] Author: Ehsan Sterling Service: (none) Author Type: Psychologist Type: Progress Notes Filed: 07/01/2018 9:34 AM Note Text: [facility] Progress Note Gay K Virginia 06/24/2018 [id number] Provider: Ehsan Vasquez PSYD CPT Code: 42457 Psychotherapy 38-52 minutes Time: Approximately 45 minutes was spent in therapy. Parties Present: Patient Patient Presentation/Concerns: Queenie brought in a letter from her mother that made her angry. Discussed productive ways to respond. Queenie struggles with expectations and anger toward her parents which impacts her self image and coping skills. This letter prompted depression and binge eating she reported. Mental Status: Mood: dysphoric Affect: mood-congruent Thoughts/Associations:goal directed Suicidal/Homicidal Ideation: None expressed or evidenced Other Observations: None Therapy Focus Mood/affect regulation MEDICATIONS: Per medical record: Current Outpatient Prescriptions: clobetasol (TEMOVATE) 0.05 % cream Apply to affected area twice daily. HYDROcodone-acetaminophen (NORCO) 5-325 mg per tablet Take 1 tablet by mouth every 6 hours as needed for Pain. For post op pain per Dr. Velasquez Fill Date: 05/26/18 naltrexone-bupropion (CONTRAVE) 8-90 mg TbER Take 1 tablet by mouth as directed. Week 1 take 1 tab in the morningWeek 2 take 1 tab in the morning and 1 in the eveningWeek 3 take 2 tabs in the morning and 1 tab in the eveningWeek 4 take 2 tabs in the morning and 2 tabs in the eveningWeek 5+ 2 tabsin the morning and 2 tabs in the evening LINZESS 290 mcg cap TAKE ONE CAPSULE BY MOUTH ONCE DAILY fluticasone (FLONASE) 50 mcg/actuation nasal spray Use 2 Sprays in each nostril once daily. Rinse mouth after use. ADVAIR DISKUS 250-50 mcg/dose dsdv INHALE ONE DOSE BY MOUTH TWICE DAILY. *RINSE AND GARGLE MOUTH WITH WATER AFTER USE* COMPOUNDED PRESCRIPTION Aqua Therapy DX: E66.01; M50.30; M51.36 COMPOUNDED PRESCRIPTION Consult pulmonary rehab estrogens conjugated (PREMARIN) 0.9 mg tablet Take 1 tablet by mouth once daily. pregabalin (LYRICA) 100 mg capsule Take 100 mg by mouth three times daily. buPROPion SR (ZYBAN SR; WELLBUTRIN SR) 150 mg 12 hr tablet Take 1 tablet by mouth twice daily. meclizine (ANTIVERT) 12.5 mg tab Take 1-2 tablets by mouth twice daily as needed (dizziness). albuterol HFA (VENTOLIN HFA) 90 mcg/actuation inhaler Inhale 2 Puffs as instructed every 4 hours as needed for Wheezing/Shortness of Breath. FLUoxetine HCl (PROZAC) 40 mg capsule Take 1 capsule by mouth once daily. mirabegron (MYRBETRIQ) 25 mg Tb24 Take 1 tablet by mouth once daily. albuterol (PROVENTIL) 2.5 mg /3 mL (0.083 %) nebulizer solution Use 3 mL via nebulizer every 4 hours as needed for Wheezing/Shortness of Breath. Use over 5-15minutes. diclofenac, EC, (VOLTAREN) 75 mg EC tablet Take 1 tablet by mouth twice daily. For pain/inflammation. Take with food. PER DR. MALONE diclofenac sodium (VOLTAREN) 1 % topical gel Apply to affected area four times daily. PER DR. MALONE baclofen (LIORESAL) 10 mg tablet Take 1 tablet by mouth twice daily. (Patient taking differently: Take 10 mg by mouth three times daily.) TENS Units malika 1 Device as needed. COMPOUNDED PRESCRIPTION Order: cock up splints (2)Dx: carpal tunnel syndrome bilateral Cholecalciferol, Vitamin D3, 5,000 unit tab Take 5,000 Units by mouth once daily. cyanocobalamin (VITAMIN B-12) 1,000 mcg tab Take 1,000 mcg by mouth once daily. Docusate Sodium 250 mg capsule Take 250 mg by mouth once daily. No current facility-administered medications for this visit. Psychiatric Medication Issues: No change from previous appointment DIAGNOSIS: Depression, recurrent Binge Eating Treatment Modality/Interventions: Cognitive Behavioral TREATMENT ASSESSMENT/PROGRESS: Stable TREATMENT PLAN/GOALS: Continue in therapy focusing on affect management, healthy coping with pain, rest to help recover from her surgery. DBT and CBT skills to let go of grief and expectations. Next appointment: 2 weeks Ehsan Vasquez PSYD PROGRESS Observed: 06/10/2018 Status: COMPLETED Source: [place] 9:53 AM [facility] [place] REPOSITORY HNO ID: [id number] Author: Ehsan Sterling Service: (none) Author Type: Psychologist Type: Progress Notes Filed: 06/10/2018 10:00 AM Note Text: [facility] Progress Note Gay K [place] 06/04/2018 [id number] Provider: Ehsan Vasquez PSYD CPT Code: 64071 Psychotherapy 38-52 minutes Time: Approximately 45 minutes was spent in therapy. Parties Present: Patient Patient Presentation/Concerns: Queenie has not been in for several weeks due to the recent medical procedures. She has a boot on her foot and a device to rest her leg on/wheel it. I brought in a chair that would be easier for her to get up. She describes being in a lot of pain. There are more medical procedures to follow. She was very tearful about her family. They did not reach out to her during her medical procedures. Her Inocente and friend Margarita have showed care and concern. We discussed focusing on those relationships. Mental Status: Mood: depressed, sad Affect: mood-congruent Thoughts/Associations:goal directed Suicidal/Homicidal Ideation: None expressed or evidenced Other Observations: None Therapy Focus Mood/affect regulation MEDICATIONS: Per medical record: Current Outpatient Prescriptions: clobetasol (TEMOVATE) 0.05 % cream Apply to affected area twice daily. HYDROcodone-acetaminophen (NORCO) 5-325 mg per tablet Take 1 tablet by mouth every 6 hours as needed for Pain. For post op pain per Dr. Velasquez Fill Date: 05/26/18 naltrexone-bupropion (CONTRAVE) 8-90 mg TbER Take 1 tablet by mouth as directed. Week 1 take 1 tab in the morningWeek 2 take 1 tab in the morning and 1 in the eveningWeek 3 take 2 tabs in the morning and 1 tab in the eveningWeek 4 take 2 tabs in the morning and 2 tabs in the eveningWeek 5+ 2 tabsin the morning and 2 tabs in the evening LINZESS 290 mcg cap TAKE ONE CAPSULE BY MOUTH ONCE DAILY fluticasone (FLONASE) 50 mcg/actuation nasal spray Use 2 Sprays in each nostril once daily. Rinse mouth after use. ADVAIR DISKUS 250-50 mcg/dose dsdv INHALE ONE DOSE BY MOUTH TWICE DAILY. *RINSE AND GARGLE MOUTH WITH WATER AFTER USE* COMPOUNDED PRESCRIPTION Aqua Therapy DX: E66.01; M50.30; M51.36 COMPOUNDED PRESCRIPTION Consult pulmonary rehab estrogens conjugated (PREMARIN) 0.9 mg tablet Take 1 tablet by mouth once daily. pregabalin (LYRICA) 100 mg capsule Take 100 mg by mouth three times daily. buPROPion SR (ZYBAN SR; WELLBUTRIN SR) 150 mg 12 hr tablet Take 1 tablet by mouth twice daily. meclizine (ANTIVERT) 12.5 mg tab Take 1-2 tablets by mouth twice daily as needed (dizziness). albuterol HFA (VENTOLIN HFA) 90 mcg/actuation inhaler Inhale 2 Puffs as instructed every 4 hours as needed for Wheezing/Shortness of Breath. FLUoxetine HCl (PROZAC) 40 mg capsule Take 1 capsule by mouth once daily. mirabegron (MYRBETRIQ) 25 mg Tb24 Take 1 tablet by mouth once daily. albuterol (PROVENTIL) 2.5 mg /3 mL (0.083 %) nebulizer solution Use 3 mL via nebulizer every 4 hours as needed for Wheezing/Shortness of Breath. Use over 5-15minutes. diclofenac, EC, (VOLTAREN) 75 mg EC tablet Take 1 tablet by mouth twice daily. For pain/inflammation. Take with food. PER DR. MALONE diclofenac sodium (VOLTAREN) 1 % topical gel Apply to affected area four times daily. PER DR. MALONE baclofen (LIORESAL) 10 mg tablet Take 1 tablet by mouth twice daily. (Patient taking differently: Take 10 mg by mouth three times daily.) TENS Units malika 1 Device as needed. COMPOUNDED PRESCRIPTION Order: cock up splints (2)Dx: carpal tunnel syndrome bilateral Cholecalciferol, Vitamin D3, 5,000 unit tab Take 5,000 Units by mouth once daily. cyanocobalamin (VITAMIN B-12) 1,000 mcg tab Take 1,000 mcg by mouth once daily. Docusate Sodium 250 mg capsule Take 250 mg by mouth once daily. No current facility-administered medications for this visit. Psychiatric Medication Issues: No change from previous appointment DIAGNOSIS: Depression, recurrent Binge Eating Treatment Modality/Interventions: Cognitive Behavioral TREATMENT ASSESSMENT/PROGRESS: Being in pain has exacerbated her mood and eating, she reports. TREATMENT PLAN/GOALS: Continue in therapy focusing on affect management, weight loss, exercise, healthy family communication and boundaries, focusing on the positive Next appointment: 2 weeks Ehsan Vasquez PSYD PROGRESS Observed: 05/29/2018 Status: COMPLETED Source: [place] 1:13 PM [facility] REPOSITORY HNO ID: [id number] Author: Cielo (Opal) OPAL Talbert Service: (none) Author Type: Clinical Nuclear Fuels Research Engineer Type: Progress Notes Filed: 05/29/2018 1:14 PM Note Text: Radiology Service Progress Note PATIENT NAME: Gay Coleman DATE OF SERVICE: May 29, 2018 TIME: 1:13 PM PATIENT IDENTITY VERIFICATION COMPLETED USING TWO (2) METHODS: Patient confirmed name verbally and Date of . PATIENT GENDER DATA: Female. status: : No status: NO. PATIENT RELEVANT IMPLANT DATA REVIEWED: Not Applicable RADIOLOGY DEPARTMENT: General X-ray: Exam(s) Completed: Lower Extremity X-Ray(s): Knee, AP / Lat / Merchant Right and Wt. Bearing: PERIPHERAL IV DATA: Not applicable SIGNED BY: OPAL Arango May 29, 2018 1:13 PM XR KNEE 4V AP/PA Observed: 05/29/2018 Status: F Source: [place] BOTH+LAT/DILLAN RT 12:52 PM CL[facility]IC [facility] REPOSITORY * * *Final Report* * * DATE OF EXAM: May 29 2018 12:52PM WRX [id number] - XR KNEE 4V AP/PA BOTH+LAT/DILLAN RT / PROCEDURE REASON: multiple diagnoses * * * * Physician Interpretation * * * * XR KNEE 4V AP/PA BOTH+LAT/DILLAN RT HISTORY: Pain in right knee Other bursitis of knee, right knee COMPARISON: None. FINDINGS: No evidence of fracture or destructive process. Slight narrowing of the medial femorotibial compartment. Small lateral patellar osteophyte. No demonstrated soft tissue abnormality. IMPRESSION: Mild degenerative changes of the knee. Skydiving Instructor: PSCB Transcribe Date/Time: May 29 2018 12:54P Dictated by : CYNTHIA MULLEN MD This examination was interpreted and the report reviewed and electronically signed by: CYNTHIA MULLEN MD on May 29 2018 12:55PM EST [id number] [id number] Observed: 05/29/2018 Status: COMPLETED Source: [place] 12:51 PM [facility] REPOSITORY HNO ID: [id number] Author: OPAL Arango (Ct) Service: (none) Author Type: Clinical Nuclear Fuels Research Engineer Type: Progress Notes Filed: 05/29/2018 12:51 PM Note Text: Radiology Service Progress Note PATIENT NAME: Gay Coleman DATE OF SERVICE: May 29, 2018 TIME: 12:51 PM PATIENT IDENTITY VERIFICATION COMPLETED USING TWO (2) METHODS: Patient confirmed name verbally and Date of . PATIENT GENDER DATA: Female. status: : No status: NO. PATIENT RELEVANT IMPLANT DATA REVIEWED: Not Applicable RADIOLOGY DEPARTMENT: General X-ray: Exam(s) Completed: Lower Extremity X-Ray(s): Knee, AP / Lat / Merchant Right and Wt. Bearing: PERIPHERAL IV DATA: Not applicable SIGNED BY: OPAL Arango May 29, 2018 12:51 PM PROGRESS Observed: 05/29/2018 Status: COMPLETED Source: [place] 9:56 AM [facility] REPOSITORY HNO ID: [id number] Author: Everton Acevedo Service: (none) Author Type: Physician Type: Progress Notes Filed: 05/29/2018 9:58 AM Note Text: CC: Gay Coleman is a 52 year old female who presents to the office for right knee pain HPI: Right knee pain, started 3-4 days ago, no warmth or redness, has been using the right leg a lot for balance since had surgery recently on left foot, using a kneeled wheeled scooter as well with a lot of use of right knee, no use of ice or heat or NSAIDs to knee, mostly medial joint area pain, ? If swelling is also present, no fevers or chills. PAST MEDICAL HISTORY Diagnosis Date - Allergic rhinitis, cause unspecified Allergic rhinitis - Asthma - Bloating - Carpal tunnel syndrome, bilateral 10/22/2016 - Constipation - Depressive disorder, not elsewhere classified - Eczema - Impaired fasting glucose 10/2015 - Insomnia Dr Fitzpatrick, on Bipap - Liver cyst 08/2016 benign - Lumbar radiculopathy, chronic L5/S1 - Migraine without aura 12/26/2006 - Mild carpal tunnel syndrome 04/2016 - OAB (overactive bladder) 10/31/2016 - OLGA (obstructive sleep apnea) Dr Fitzpatrick, on Bipap - Other chronic sinusitis - Perimenopausal 11/16/2012 - Psoriasis Gets injections every 3 months for this from Sameer Mata MD - Sensorineural hearing loss [facility] PAST SURGICAL HISTORY Procedure Laterality Date - BREAST BIOPSY Right - CARPAL TUNNEL Bilateral 01/2017 - CATARACT SURGERY, COMPLEX right eye, left eye - COLONOSCOP W/ OR W/O BRSH SPEC 01/26/15 Colonoscopy - EXCISION NOSE POLYP(S),SIMPLE Nasal polypectomy - HYSTERECTOMY HX 2014 TRH with BSO - [facility]D HEMATOMA 11/27/2017 incision and drainage of infected hematoma [facility] - PAST SURGICAL HISTORY OF 2014 bilateral foot bxs - PAST SURGICAL HISTORY OF 2014 nasal surgery/Turbinates - PAST SURGICAL HISTORY OF 04/2015 adnexal mass removal- benign - PAST SURGICAL HISTORY OF Bilateral 2011 bilateral breast reduction - PAST SURGICAL HISTORY OF mass removed from neck - PAST SURGICAL HISTORY OF 11/27/2017 I[facility] infected hematoma upper back/posterior neck - REMOVAL OF TONSILS,<11 Y/O Tonsillectomy AND adenoidectomy - REPAIR OF NASAL SEPTUM Septoplasty - TORIC LENS left eye Current Outpatient Prescriptions: clobetasol (TEMOVATE) 0.05 % cream Apply to affected area twice daily. fluticasone (FLONASE) 50 mcg/actuation nasal spray Use 2 Sprays in each nostril once daily. Rinse mouth after use. ADVAIR DISKUS 250-50 mcg/dose dsdv INHALE ONE DOSE BY MOUTH TWICE DAILY. *RINSE AND GARGLE MOUTH WITH WATER AFTER USE* estrogens conjugated (PREMARIN) 0.9 mg tablet Take 1 tablet by mouth once daily. pregabalin (LYRICA) 100 mg capsule Take 100 mg by mouth three times daily. buPROPion SR (ZYBAN SR; WELLBUTRIN SR) 150 mg 12 hr tablet Take 1 tablet by mouth twice daily. albuterol HFA (VENTOLIN HFA) 90 mcg/actuation inhaler Inhale 2 Puffs as instructed every 4 hours as needed for Wheezing/Shortness of Breath. FLUoxetine HCl (PROZAC) 40 mg capsule Take 1 capsule by mouth once daily. mirabegron (MYRBETRIQ) 25 mg Tb24 Take 1 tablet by mouth once daily. albuterol (PROVENTIL) 2.5 mg /3 mL (0.083 %) nebulizer solution Use 3 mL via nebulizer every 4 hours as needed for Wheezing/Shortness of Breath. Use over 5-15minutes. diclofenac, EC, (VOLTAREN) 75 mg EC tablet Take 1 tablet by mouth twice daily. For pain/inflammation. Take with food. PER DR. MALONE diclofenac sodium (VOLTAREN) 1 % topical gel Apply to affected area four times daily. PER DR. MALONE baclofen (LIORESAL) 10 mg tablet Take 1 tablet by mouth twice daily. (Patient taking differently: Take 10 mg by mouth three times daily.) Cholecalciferol, Vitamin D3, 5,000 unit tab Take 5,000 Units by mouth once daily. cyanocobalamin (VITAMIN B-12) 1,000 mcg tab Take 1,000 mcg by mouth once daily. Docusate Sodium 250 mg capsule Take 250 mg by mouth once daily. predniSONE (DELTASONE) 10 mg tablet Take 4 tabs daily for 3 days, then 2 tabs daily for 3 days, then 1 tab daily for 3 days with food. HYDROcodone-acetaminophen (NORCO) 5-325 mg per tablet Take 1 tablet by mouth every 6 hours as needed for Pain. For post op pain per Dr. Velasquez Fill Date: 05/26/18 naltrexone-bupropion (CONTRAVE) 8-90 mg TbER Take 1 tablet by mouth as directed. Week 1 take 1 tab in the morningWeek 2 take 1 tab in the morning and 1 in the eveningWeek 3 take 2 tabs in the morning and 1 tab in the eveningWeek 4 take 2 tabs in the morning and 2 tabs in the eveningWeek 5+ 2 tabsin the morning and 2 tabs in the evening LINZESS 290 mcg cap TAKE ONE CAPSULE BY MOUTH ONCE DAILY COMPOUNDED PRESCRIPTION Aqua Therapy DX: E66.01; M50.30; M51.36 COMPOUNDED PRESCRIPTION Consult pulmonary rehab meclizine (ANTIVERT) 12.5 mg tab Take 1-2 tablets by mouth twice daily as needed (dizziness). TENS Units malika 1 Device as needed. COMPOUNDED PRESCRIPTION Order: cock up splints (2)Dx: carpal tunnel syndrome bilateral No current facility-administered medications for this visit. 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 Uvula midline. Neck: No LAD, no thyromegaly, no meningismus. CV: RRR, no murmur Lungs: CTA b/l, no wheezing Skin: No rashes, lesions, or wounds on exposed skin. Obese Right knee with swelling of medial bursa with TTP without erythema or warmth, TTP on lateral joint line right knee, no obvious posterior swelling, mild joint effusion ASSESSMENT/PLAN: 1. Acute pain of right knee - ICD9: 719.46, ICD10: M25.561 (primary diagnosis) - likely medial bursitis present, use of voltaren topically and icing 4x/day as well as oral prednisone, check xray, rest and elevation - XR KNEE GENERAL 4V AP BOTH/PA BOTH/LAT/MERC RT - PREDNISONE 10 MG TABLET 2. Pes anserinus bursitis of right knee - ICD9: 726.61, ICD10: M70.51 - see above - XR KNEE GENERAL 4V AP BOTH/PA BOTH/LAT/MERC RT - PREDNISONE 10 MG TABLET Everton Acevedo DO Return if no improvement. Follow up with Everton Acevedo DO. Discussed risks, benefits, alternatives, and potential side effects of medications. Patient/Guardian expressed understanding and agreed with the plan. See patient instructions. Everton Acevedo DO [address] [place] [address] CNOV Observed: 05/29/2018 Status: COMPLETED Source: [place] 9:00 AM [facility] REPOSITORY Office Visit (FAMPWS) GAY COLEMAN ([id number]) 1965 F Date Time Provider Department 05/29/18 9:00 AM [facility] During your visit today, we recorded the following information about you: Temperature Pulse Respiration Blood pressure 97 degrees 80/minute 20/minute 106/80 Weight 105.7 kg Everton Acevedo DO 05/29/2018 9:58 AM Signed CC: Gay Coleman is a 52 year old female who presents to the office for right knee pain HPI: Right knee pain, started 3-4 days ago, no warmth or redness, has been using the right leg a lot for balance since had surgery recently on left foot, using a kneeled wheeled scooter as well with a lot of use of right knee, no use of ice or heat or NSAIDs to knee, mostly medial joint area pain, ? If swelling is also present, no fevers or chills. PAST MEDICAL HISTORY Diagnosis Date - Allergic rhinitis, cause unspecified Allergic rhinitis - Asthma - Bloating - Carpal tunnel syndrome, bilateral 10/22/2016 - Constipation - Depressive disorder, not elsewhere classified - Eczema - Impaired fasting glucose 10/2015 - Insomnia Dr Fitzpatrick, on Bipap - Liver cyst 08/2016 benign - Lumbar radiculopathy, chronic L5/S1 - Migraine without aura 12/26/2006 - Mild carpal tunnel syndrome 04/2016 - OAB (overactive bladder) 10/31/2016 - OLGA (obstructive sleep apnea) Dr Fitzpatrick, on Bipap - Other chronic sinusitis - Perimenopausal 11/16/2012 - Psoriasis Gets injections every 3 months for this from Sameer Mata MD - Sensorineural hearing loss [place] PAST SURGICAL HISTORY Procedure Laterality Date - BREAST BIOPSY Right - CARPAL TUNNEL Bilateral 01/2017 - CATARACT SURGERY, COMPLEX right eye, left eye - COLONOSCOP W/ OR W/O BRSH SPEC 01/26/15 Colonoscopy - EXCISION NOSE POLYP(S),SIMPLE Nasal polypectomy - HYSTERECTOMY HX 2014 TRH with BSO - IANDD HEMATOMA 11/27/2017 incision and drainage of infected hematoma [facility] - PAST SURGICAL HISTORY OF 2015 bilateral foot bxs - PAST SURGICAL HISTORY OF 2015 nasal surgery/Turbinates - PAST SURGICAL HISTORY OF 04/2015 adnexal mass removal- benign - PAST SURGICAL HISTORY OF Bilateral 2010 bilateral breast reduction - PAST SURGICAL HISTORY OF mass removed from neck - PAST SURGICAL HISTORY OF 11/27/2017 IANDD infected hematoma upper back/posterior neck - REMOVAL OF TONSILS,<11 Y/O Tonsillectomy AND adenoidectomy - REPAIR OF NASAL SEPTUM Septoplasty - TORIC LENS left eye Current Outpatient Prescriptions: clobetasol (TEMOVATE) 0.05 % cream Apply to affected area twice daily. fluticasone (FLONASE) 50 mcg/actuation nasal spray Use 2 Sprays in each nostril once daily. Rinse mouth after use. ADVAIR DISKUS 250-50 mcg/dose dsdv INHALE ONE DOSE BY MOUTH TWICE DAILY. *RINSE AND GARGLE MOUTH WITH WATER AFTER USE* estrogens conjugated (PREMARIN) 0.9 mg tablet Take 1 tablet by mouth once daily. pregabalin (LYRICA) 100 mg capsule Take 100 mg by mouth three times daily. buPROPion SR (ZYBAN SR; WELLBUTRIN SR) 150 mg 12 hr tablet Take 1 tablet by mouth twice daily. albuterol HFA (VENTOLIN HFA) 90 mcg/actuation inhaler Inhale 2 Puffs as instructed every 4 hours as needed for Wheezing/Shortness of Breath. FLUoxetine HCl (PROZAC) 40 mg capsule Take 1 capsule by mouth once daily. mirabegron (MYRBETRIQ) 25 mg Tb24 Take 1 tablet by mouth once daily. albuterol (PROVENTIL) 2.5 mg /3 mL (0.083 %) nebulizer solution Use 3 mL via nebulizer every 4 hours as needed for Wheezing/Shortness of Breath. Use over 5-15minutes. diclofenac, EC, (VOLTAREN) 75 mg EC tablet Take 1 tablet by mouth twice daily. For pain/inflammation. Take with food. PER DR. MALONE diclofenac sodium (VOLTAREN) 1 % topical gel Apply to affected area four times daily. PER DR. MALONE baclofen (LIORESAL) 10 mg tablet Take 1 tablet by mouth twice daily. (Patient taking differently: Take 10 mg by mouth three times daily.) Cholecalciferol, Vitamin D3, 5,000 unit tab Take 5,000 Units by mouth once daily. cyanocobalamin (VITAMIN B-12) 1,000 mcg tab Take 1,000 mcg by mouth once daily. Docusate Sodium 250 mg capsule Take 250 mg by mouth once daily. predniSONE (DELTASONE) 10 mg tablet Take 4 tabs daily for 3 days, then 2 tabs daily for 3 days, then 1 tab daily for 3 days with food. HYDROcodone-acetaminophen (NORCO) 5-325 mg per tablet Take 1 tablet by mouth every 6 hours as needed for Pain. For post op pain per Dr. Velasquez Fill Date: 05/26/18 naltrexone-bupropion (CONTRAVE) 8-90 mg TbER Take 1 tablet by mouth as directed. Week 1 take 1 tab in the morningWeek 2 take 1 tab in the morning and 1 in the eveningWeek 3 take 2 tabs in the morning and 1 tab in the eveningWeek 4 take 2 tabs in the morning and 2 tabs in the eveningWeek 5+ 2 tabsin the morning and 2 tabs in the evening LINZESS 290 mcg cap TAKE ONE CAPSULE BY MOUTH ONCE DAILY COMPOUNDED PRESCRIPTION Aqua Therapy DX: E66.01; M50.30; M51.36 COMPOUNDED PRESCRIPTION Consult pulmonary rehab meclizine (ANTIVERT) 12.5 mg tab Take 1-2 tablets by mouth twice daily as needed (dizziness). TENS Units malika 1 Device as needed. COMPOUNDED PRESCRIPTION Order: cock up splints (2)Dx: carpal tunnel syndrome bilateral No current facility-administered medications for this visit. 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 Uvula midline. Neck: No LAD, no thyromegaly, no meningismus. CV: RRR, no murmur Lungs: CTA b/l, no wheezing Skin: No rashes, lesions, or wounds on exposed skin. Obese Right knee with swelling of medial bursa with TTP without erythema or warmth, TTP on lateral joint line right knee, no obvious posterior swelling, mild joint effusion ASSESSMENT/PLAN: 1. Acute pain of right knee - ICD9: 719.46, ICD10: M25.561 (primary diagnosis) - likely medial bursitis present, use of voltaren topically and icing 4x/day as well as oral prednisone, check xray, rest and elevation - XR KNEE GENERAL 4V AP BOTH/PA BOTH/LAT/MERC RT - PREDNISONE 10 MG TABLET 2. Pes anserinus bursitis of right knee - ICD9: 726.61, ICD10: M70.51 - see above - XR KNEE GENERAL 4V AP BOTH/PA BOTH/LAT/MERC RT - PREDNISONE 10 MG TABLET Everton Acevedo, DO Return if no improvement. Follow up with Everton Acevedo DO. Discussed risks, benefits, alternatives, and potential side effects of medications. Patient/Guardian expressed understanding and agreed with the plan. See patient instructions. Everton Acevedo DO [address] [place] [address] Referring Provider: KAY VILLALOBOS ([facility]) [[id number]] Allergies As of Date: 05/29/2018 Noted Allergy Reaction DUST 12/26/2006 NABUMETONE 10/04/2014 8 - GI Upset SEASONAL ALLERGIES 06/19/2015 14 - Other: See Comments SMOKE 12/26/2006 THIMERISOL (THIMEROSAL) 01/09/2016 5 - Intolerance Date Reviewed: 05/29/2018 Reviewed by: Ehsan Laboy LPN - Fully Assessed Reason for Visit: Knee Pain [132] Cmt: Right x 3 days Primary Visit Diagnosis:Acute pain of right knee [M25.561] Other Visit Diagnosis:Pes anserinus bursitis of right knee [M70.51] Order(s):XR KNEE GENERAL 4V AP BOTH/PA BOTH/LAT/MERC RT [1224000] Order #: [id number] FUTURE predniSONE (DELTASONE) 10 mg tabletTake 4 tabs daily for 3 days, then 2 tabs daily for 3 days, then 1 tab daily for 3 days with food.Disp: 21 tabletRfl: 0 Prescriptions as of 05/29/2018 Sig: CLOBETASOL 0.05 % TOPICAL CRE* Apply to affected area twice * FLUTICASONE 50 MCG/ACTUATION * Use 2 Sprays in each nostril * ADVAIR DISKUS 250 MCG-50 MCG/* INHALE ONE DOSE BY MOUTH TWIC* CONJUGATED ESTROGENS 0.9 MG T* Take 1 tablet by mouth once d* PREGABALIN 100 MG CAPSULE Take 100 mg by mouth three ti* BUPROPION HCL SR 150 MG TABLE* Take 1 tablet by mouth twice * ALBUTEROL SULFATE HFA 90 MCG/* Inhale 2 Puffs as instructed * FLUOXETINE 40 MG CAPSULE Take 1 capsule by mouth once * MIRABEGRON ER 25 MG TABLET,EX* Take 1 tablet by mouth once d* ALBUTEROL SULFATE 2.5 MG/3 ML* Use 3 mL via nebulizer every * DICLOFENAC SODIUM 75 MG TABLE* Take 1 tablet by mouth twice * DICLOFENAC 1 % TOPICAL GEL Apply to affected area four * BACLOFEN 10 MG TABLET Take 1 tablet by mouth twice * Patient taking differently: Take 10 mg by mouth three justino* CHOLECALCIFEROL (VITAMIN D3) * Take 5,000 Units by mouth onc* CYANOCOBALAMIN (VIT B-12) 1,0* Take 1,000 mcg by mouth once * DOCUSATE SODIUM 250 MG CAPSULE Take 250 mg by mouth once sudhakar* PREDNISONE 10 MG TABLET Take 4 tabs daily for 3 days,* HYDROCODONE 5 MG-ACETAMINOPHE* Take 1 tablet by mouth every * NALTREXONE 8 MG-BUPROPION 90 * Take 1 tablet by mouth as dir* LINZESS 290 MCG CAPSULE TAKE ONE CAPSULE BY MOUTH ONC* COMPOUNDED PRESCRIPTION Aqua Therapy DX: E66.01; M5* COMPOUNDED PRESCRIPTION Consult pulmonary rehab MECLIZINE 12.5 MG TABLET Take 1-2 tablets by mouth twi* TRANSCUTANEOUS ELECTRICAL NER* 1 Device as needed. COMPOUNDED PRESCRIPTION Order: cock up splints (2) D* Medication notes this encounter HYDROCODONE 5 MG-ACETAMINOPHEN 325 MG TABLET >> Ehsan Laboy LPN 05/29/2018 9:06 AM >> EHSAN LABOY LPN FriMay 29, 2018 9:06 AM Finished MECLIZINE 12.5 MG TABLET >> Ehsan Laboy LPN 05/29/2018 9:07 AM >> EHSAN LABOY LPN FriMay 29, 2018 9:07 AM Finished Problem List As Of Date 05/29/2018 Noted Resolved Migraine without aura [346.1] INVALID FOR*07/28/2017 Dysthymia [F34.1] INVALID FOR* Perimenopausal [N95.1] INVALID FOR*07/28/2017 Breast hypertrophy [N62] INVALID FOR* Bloating [R14.0] Constipation [K59.00] Adnexal mass [N94.9] INVALID FOR*10/31/2016 Flatulence, eructation, and gas pain [R14.3, R1*INVALID FOR*01/26/2015 Unspecified constipation [K59.00] INVALID FOR*01/26/2015 Midline low back pain without sciatica [M54.5] INVALID FOR* Intervertebral disc disorder with radiculopathy*INVALID FOR* DDD (degenerative disc disease), lumbar [M51.36]INVALID FOR* Cervical disc disorder with radiculopathy [M50.*INVALID FOR* DDD (degenerative disc disease), cervical [M50.*INVALID FOR* Carpal tunnel syndrome, bilateral [G56.03] INVALID FOR*07/28/2017 Asthma [J45.909] INVALID FOR*01/20/2018 OLGA (obstructive sleep apnea) [G47.33] INVALID FOR* More... Psoriasis [L40.9] INVALID FOR* OAB (overactive bladder) [N32.81] INVALID FOR* Impaired fasting glucose [R73.01] INVALID FOR* Exercise-induced asthma [J45.990] INVALID FOR* Obesity, Class III, BMI 40-49.9 (morbid obesity*INVALID FOR* Irritable bowel syndrome with constipation [K58*INVALID FOR* ANDREW (generalized anxiety disorder) [F41.1] INVALID FOR* Neck mass [R22.1] INVALID FOR* Prescriptions ordered this encounter Disp Refills Start End PREDNISONE 10 MG TABLET 21 t* 0 05/29/2018 06/07/2018 Sig: Take 4 tabs daily for 3 days, then 2 tabs daily for 3 days, then 1 tab daily for 3 days with food. Encounter Status:Closed by EVERTON ACEVEDO DO on 05/29/18 PROGRESS Observed: 05/26/2018 Status: COMPLETED Source: [place] 4:12 PM [facility] REPOSITORY HNO ID: [id number] Author: Kay Maravilla ([facility]) [facility] Service: (none) Author Type: Nurse Practitioner Type: Progress Notes Filed: 05/26/2018 4:15 PM Note Text: HPI/CC: Gay Coleman is a 52 year old female who presents for Adipex Recheck. Patient had recent left foot surgery and is unable to bear weight. Patient was down 11 lbs in 2 months on adipex. Interested in trying a bobbin cleaner hand weight loss medication. ROS as above, otherwise non-contributory. Reviewed PMHx, PSHx, social Hx, medications and allergies. PHYSICAL EXAMINATION: BP 118/72 Pulse 100 Resp 16 LMP 03/02/2015 General appearance: Well appearing, alert, in no acute distress, well-hydrated, well nourished. Lungs: Lungs clear to auscultation. No wheezing, rhonchi, rales Heart: RRR without murmur, gallop, or rubs. No ectopy LLE with surgical bandage intact ASSESSMENT/PLAN: 1. Obesity, Class III, BMI 40-49.9 (morbid obesity) (HCC) - ICD9: 278.01, ICD10: E66.01 (primary diagnosis) - NALTREXONE 8 MG-BUPROPION 90 MG TABLET,EXTENDED RELEASE 2. Post-op pain - ICD9: 338.18, ICD10: G89.18 - HYDROCODONE 5 MG-ACETAMINOPHEN 325 MG TABLET- med update only- not prescribing Kay Villalobos APRN.CNP CNOV Observed: 05/26/2018 Status: COMPLETED Source: [place] 2:40 PM [facility] REPOSITORY Office Visit (FAMPWS) SUDHAKARBEVERLY LEPEEverett Castro ([id number]) 1965 F Date Time Provider Department 05/26/18 2:40 PM KAY VILLALOBOS ([facility]) FAMPWS During your visit today, we recorded the following information about you: Pulse Respiration Blood pressure 100/minute 16/minute 118/72 Kay Villalobos APRN.CNP 05/26/2018 4:15 PM Signed HPI/CC: Gay Matthew [place] is a 52 year old female who presents for Adipex Recheck. Patient had recent left foot surgery and is unable to bear weight. Patient was down 11 lbs in 2 months on adipex. Interested in trying a usp weight loss medication. ROS as above, otherwise non-contributory. Reviewed PMHx, PSHx, social Hx, medications and allergies. PHYSICAL EXAMINATION: BP 118/72 Pulse 100 Resp 16 LMP 03/02/2015 General appearance: Well appearing, alert, in no acute distress, well-hydrated, well nourished. Lungs: Lungs clear to auscultation. No wheezing, rhonchi, rales Heart: RRR without murmur, gallop, or rubs. No ectopy LLE with surgical bandage intact ASSESSMENT/PLAN: 1. Obesity, Class III, BMI 40-49.9 (morbid obesity) ([facility]) - ICD9: 278.01, ICD10: E66.01 (primary diagnosis) - NALTREXONE 8 MG-BUPROPION 90 MG TABLET,EXTENDED RELEASE 2. Post-op pain - ICD9: 338.18, ICD10: G89.18 - HYDROCODONE 5 MG-ACETAMINOPHEN 325 MG TABLET- med update only- not prescribing Kay Villalobos APRN.[facility] Referring Provider: KAY VILLALOBOS ([facility]) [[id number]] Allergies As of Date: 05/26/2018 Noted Allergy Reaction DUST 12/26/2006 NABUMETONE 10/04/2014 8 - GI Upset SEASONAL ALLERGIES 06/19/2015 14 - Other: See Comments SMOKE 12/26/2006 THIMERISOL (THIMEROSAL) 01/09/2016 5 - Intolerance Date Reviewed: 05/26/2018 Reviewed by: Aakash Burton LPN - Fully Assessed Reason for Visit: Recheck [92] Cmt: follow up Primary Visit Diagnosis:Obesity, Class III, BMI 40-49.9 (morbid obesity) ([facility]) [E66.01] Other Visit Diagnosis:Post-op pain [G89.18] Order(s):naltrexone-bupropion (CONTRAVE) 8-90 mg TbERTake 1 tablet by mouth as directed. Week 1 take 1 tab in the morning Week 2 take 1 tab in the morning and 1 in the evening Week 3 take 2 tabs in the morning and 1 tab in the evening Week 4 take 2 tabs in the morning and 2 tabs in the evening Week 5+ 2 tabsin the morning and 2 tabs in the eveningDisp: 73 tabletRfl: 0 Prescriptions as of 05/26/2018 Sig: LINZESS 290 MCG CAPSULE TAKE ONE CAPSULE BY MOUTH ONC* FLUTICASONE 50 MCG/ACTUATION * Use 2 Sprays in each nostril * ADVAIR DISKUS 250 MCG-50 MCG/* INHALE ONE DOSE BY MOUTH TWIC* COMPOUNDED PRESCRIPTION Aqua Therapy DX: E66.01; M5* COMPOUNDED PRESCRIPTION Consult pulmonary rehab CONJUGATED ESTROGENS 0.9 MG T* Take 1 tablet by mouth once d* PREGABALIN 100 MG CAPSULE Take 100 mg by mouth three ti* BUPROPION HCL SR 150 MG TABLE* Take 1 tablet by mouth twice * MECLIZINE 12.5 MG TABLET Take 1-2 tablets by mouth twi* ALBUTEROL SULFATE HFA 90 MCG/* Inhale 2 Puffs as instructed * FLUOXETINE 40 MG CAPSULE Take 1 capsule by mouth once * MIRABEGRON ER 25 MG TABLET,EX* Take 1 tablet by mouth once d* ALBUTEROL SULFATE 2.5 MG/3 ML* Use 3 mL via nebulizer every * DICLOFENAC SODIUM 75 MG TABLE* Take 1 tablet by mouth twice * DICLOFENAC 1 % TOPICAL GEL Apply to affected area four * BACLOFEN 10 MG TABLET Take 1 tablet by mouth twice * Patient taking differently: Take 10 mg by mouth three justino* TRANSCUTANEOUS ELECTRICAL NER* 1 Device as needed. COMPOUNDED PRESCRIPTION Order: cock up splints (2) D* CHOLECALCIFEROL (VITAMIN D3) * Take 5,000 Units by mouth onc* CYANOCOBALAMIN (VIT B-12) 1,0* Take 1,000 mcg by mouth once * DOCUSATE SODIUM 250 MG CAPSULE Take 250 mg by mouth once sudhakar* HYDROCODONE 5 MG-ACETAMINOPHE* Take 1 tablet by mouth every * NALTREXONE 8 MG-BUPROPION 90 * Take 1 tablet by mouth as dir* Problem List As Of Date 05/26/2018 Noted Resolved Migraine without aura [346.1] INVALID FOR*07/28/2017 Dysthymia [F34.1] INVALID FOR* Perimenopausal [N95.1] INVALID FOR*07/28/2017 Breast hypertrophy [N62] INVALID FOR* Bloating [R14.0] Constipation [K59.00] Adnexal mass [N94.9] INVALID FOR*10/31/2016 Flatulence, eructation, and gas pain [R14.3, R1*INVALID FOR*01/26/2015 Unspecified constipation [K59.00] INVALID FOR*01/26/2015 Midline low back pain without sciatica [M54.5] INVALID FOR* Intervertebral disc disorder with radiculopathy*INVALID FOR* DDD (degenerative disc disease), lumbar [M51.36]INVALID FOR* Cervical disc disorder with radiculopathy [M50.*INVALID FOR* DDD (degenerative disc disease), cervical [M50.*INVALID FOR* Carpal tunnel syndrome, bilateral [G56.03] INVALID FOR*07/28/2017 Asthma [J45.909] INVALID FOR*01/20/2018 OLGA (obstructive sleep apnea) [G47.33] INVALID FOR* More... Psoriasis [L40.9] INVALID FOR* OAB (overactive bladder) [N32.81] INVALID FOR* Impaired fasting glucose [R73.01] INVALID FOR* Exercise-induced asthma [J45.990] INVALID FOR* Obesity, Class III, BMI 40-49.9 (morbid obesity*INVALID FOR* Irritable bowel syndrome with constipation [K58*INVALID FOR* ANDREW (generalized anxiety disorder) [F41.1] INVALID FOR* Neck mass [R22.1] INVALID FOR* Prescriptions ordered this encounter Disp Refills Start End NALTREXONE 8 MG-BUPROPION 90 MG TABL* 73 t* 0 05/26/2018 Class: Print RX Route: ORAL Sig: Take 1 tablet by mouth as directed. Week 1 take 1 tab in the morning Week 2 take 1 tab in the morning and 1 in the evening Week 3 take 2 tabs in the morning and 1 tab in the evening Week 4 take 2 tabs in the morning and 2 tabs in the evening Week 5+ 2 tabsin the morning and 2 tabs in the evening Medications Discontinued During This Encounter cefdinir (OMNICEF) 300 mg capsule 04/23/2018 05/26/2018 Class: Historical Med Route: ORAL Sig: Take 1 capsule by mouth every 12 hours. Disc: Reason for discontinue is not on file. predniSONE (DELTASONE) 10 mg tablet 21 t* 0 04/23/2018 05/26/2018 Sig: Take 40 mg x 3 days, 20 mg x 3 days, 10 mg x 3 days. Take with food, once daily Disc: Reason for discontinue is not on file. Encounter Status:Closed by KAY VILLALOBOS CNP on 05/26/18 PT D/C SUMMARY (1) Observed: 05/11/2018 Status: F Source: [place] 1:39 PM [facility] REPOSITORY [facility] [address] [place] [address]. [address] [place] [address] Fax REHABILITATION SERVICES DISCHARGE SUMMARY MR#: [id number] Acct: [id number] Name: GAY COLEMAN Rep #: [id number] : 1965 52 From: Claudia Downing PT, Cert. MDT Referring DrHerminia: Everton Cash, DO Status: REG RCR Insurance: [facility] SELF PAY INSURANCE HP - PT D/C Summary It has been my pleasure to treat GAY COLEMAN under orders from Everton Acevedo, for the diagnosis of CERVICAL AND LUMBAR DDD WITH RADICULOPATHY. for a total of 8 visit(s). Discharge Date: Please see the following information for a summary of their discharge status. - Subjective Subjective: ANKLE SURGERY PENDING 05/15/18. CAUDAL INJECTIONS SCHEDULED 05/20/18. PATIENT REPORTS SHE KNOWS SHE NEEDS TO MOVE AND THE WATER HELPS TAKE THE WEIGHT OFF HER JOINTS AND SHE THINKS THE WATER EX IS A POSITIVE. SHE REPORTS SHE HAS MORE MOVEMENT AND CAN DO MORE IN [place]. OVER-ALL THOUGH - SHE DOESN'T SEE A CHANGE IN HER PAIN OR FUNCTION. PATEINT REPORTS SHE HAD A NECK, THORACIC AND LEFT ANKLE MRI'S RECENTLY (APRIL 30 AND OTHER). SHE REPORTS SHE HAD THE SPINE TESTS AT [facility] AND HAS BEEN REFERRED TO DR. BULLARD JUL 28 AND WILL GET THE RESULTS THEN. - Pain Cervical Spine Pain Intensity (Out of 10): 7 Lumbar Spine Pain Intensity (Out of 10): 8 - Objective Objective/Function: MINIMAL TO NO CHANGE WITH EXAM TODAY COMPARED TO INITIAL EVAL. UPON EXAM, LUMBAR MVMT LOSS IS FOLLOWS: FLEX - NIL, EXT - CHINTAN, RUBÉN SG - CHINTAN. C/O PAIN WITH EXT AND SG TESTING - STABBING. UNABLE TO TRANSFER SIT TO STAND WITHOUT UE ASSIST. PT LEANS TO THE RIGHT TO HELP HERSELF UP FROM CHAIR. RIGHT PHILOSOPHY SPECIALIST 63LBS, LEFT PHILOSOPHY SPECIALIST 65LBS. RUBÉN UE AROM WFL. RUBÉN UE STRENGTH GROSSLY 4-5/5 WITH MMT. NEGATIVE RUBÉN LE DURAL SIGNS. 10 SEC ON RIGHT WITHOUT UE ASSIST AND LLE NT. RUBÉN LE STRENGTH GROSSLY 4-5 WITH MMT EXCEPT LEFT ANKLE NT. CERVICAL MVMT LOSS: FLEX - NIL, PRO - NIL, RET - CHINTAN, EXT - MOD, RUBÉN SB - MOD, RUBÉN ROT - MOD. PATIENT HAS C/O PAIN WITH CERVICAL ROM TESTING ALL PLANES. NECK AND BACK OSWESTRY SCORES ARE UNCHANGED SINCE INITIAL EVAL. - Goals Goal 1:: DECREASE C/O SPINE PAIN Goal Progress: Not Progressing Goal 2:: IMPROVE STANDING, WALKING, AND ADL FUNCTION Goal Progress: Not Progressing Goal 3:: INDEP WATER EX PROGRAM Goal Progress: Not Progressing Goal 4:: INSTRUCT IN PROPHYLAXIS Goal Progress: Not Progressing - Plan Plan: D/C DUE TO LACK OF PROGRESS, PENDING ANKLE SURGERY, CAUDAL INJECTIONS AND CONSULT WITH DR. BULLARD. - D/C Information If there are questions or concerns regarding this patient's physical therapy, please feel free to call me at [phone]. Thank you for the referral of this patient. Sincerely, Claudia Downing <Electronically signed by Claudia Downing PT, Cert. MDT> 05/11/18 1339 CC: Everton Cash DO ASHLEY Signed PROGRESS Observed: 05/05/2018 Status: COMPLETED Source: [place] 10:53 AM [facility] REPOSITORY HNO ID: [id number] Author: Ehsan Sterling Service: (none) Author Type: Psychologist Type: Progress Notes Filed: 05/05/2018 10:57 AM Note Text: [facility] Progress Note Gay Castro [place] 05/05/2018 [id number] Provider: Ehsan Vasquez PSYD CPT Code: 92457 Psychotherapy 38-52 minutes Time: Approximately 45 minutes was spent in therapy. Parties Present: Patient Patient Presentation/Concerns: Queenie was very tearful today. A letter from her mother triggered all of her family issues. She also expressed being in a lot of physical pain. This led to emotional overeating. She is reading a chapter from her bible study about emotional eating that she stated was helpful. Queenie has a medical procedure coming up. Mental Status: Mood: neutral Affect: mood-congruent Thoughts/Associations:goal directed Suicidal/Homicidal Ideation: None expressed or evidenced Other Observations: None Therapy Focus Mood/affect regulation MEDICATIONS: Per medical record: Current Outpatient Prescriptions: LINZESS 290 mcg cap TAKE ONE CAPSULE BY MOUTH ONCE DAILY predniSONE (DELTASONE) 10 mg tablet Take 40 mg x 3 days, 20 mg x 3 days, 10 mg x 3 days. Take with food, once daily Phentermine HCl (ADIPEX-P) 37.5 mg tablet Take 1 tablet by mouth once daily for 30 days. BMI 39 cefdinir (OMNICEF) 300 mg capsule Take 1 capsule by mouth every 12 hours. fluticasone (FLONASE) 50 mcg/actuation nasal spray Use 2 Sprays in each nostril once daily. Rinse mouth after use. ADVAIR DISKUS 250-50 mcg/dose dsdv INHALE ONE DOSE BY MOUTH TWICE DAILY. *RINSE AND GARGLE MOUTH WITH WATER AFTER USE* COMPOUNDED PRESCRIPTION Aqua Therapy DX: E66.01; M50.30; M51.36 COMPOUNDED PRESCRIPTION Consult pulmonary rehab estrogens conjugated (PREMARIN) 0.9 mg tablet Take 1 tablet by mouth once daily. pregabalin (LYRICA) 100 mg capsule Take 100 mg by mouth three times daily. buPROPion SR (ZYBAN SR; WELLBUTRIN SR) 150 mg 12 hr tablet Take 1 tablet by mouth twice daily. meclizine (ANTIVERT) 12.5 mg tab Take 1-2 tablets by mouth twice daily as needed (dizziness). albuterol HFA (VENTOLIN HFA) 90 mcg/actuation inhaler Inhale 2 Puffs as instructed every 4 hours as needed for Wheezing/Shortness of Breath. FLUoxetine HCl (PROZAC) 40 mg capsule Take 1 capsule by mouth once daily. mirabegron (MYRBETRIQ) 25 mg Tb24 Take 1 tablet by mouth once daily. albuterol (PROVENTIL) 2.5 mg /3 mL (0.083 %) nebulizer solution Use 3 mL via nebulizer every 4 hours as needed for Wheezing/Shortness of Breath. Use over 5-15minutes. diclofenac, EC, (VOLTAREN) 75 mg EC tablet Take 1 tablet by mouth twice daily. For pain/inflammation. Take with food. PER DR. MALONE diclofenac sodium (VOLTAREN) 1 % topical gel Apply to affected area four times daily. PER DR. MALONE baclofen (LIORESAL) 10 mg tablet Take 1 tablet by mouth twice daily. (Patient taking differently: Take 10 mg by mouth three times daily.) TENS Units malika 1 Device as needed. COMPOUNDED PRESCRIPTION Order: cock up splints (2)Dx: carpal tunnel syndrome bilateral Cholecalciferol, Vitamin D3, 5,000 unit tab Take 5,000 Units by mouth once daily. cyanocobalamin (VITAMIN B-12) 1,000 mcg tab Take 1,000 mcg by mouth once daily. Docusate Sodium 250 mg capsule Take 250 mg by mouth once daily. No current facility-administered medications for this visit. Psychiatric Medication Issues: No change from previous appointment DIAGNOSIS: Depression, recurrent Binge Eating Disorder Treatment Modality/Interventions: Cognitive Behavioral TREATMENT ASSESSMENT/PROGRESS: Stable TREATMENT PLAN/GOALS: Continue in therapy focusing on affect management. 1) CBT for affect regulation 2) Grief support. Mourn the loss of the family she wishes she had Next appointment: 1 week Ehsan Vasquez PSYD MRI CERVICAL SPINE WO Observed: 04/30/2018 Status: F Source: [place] IVCON 2:51 PM [facility] REPOSITORY * * *Final Report* * * DATE OF EXAM: Apr 30 2018 2:51PM [facility] 0297 - MRI CERVICAL SPINE WO IVCON / PROCEDURE REASON: multiple diagnoses * * * * Physician Interpretation * * * * EXAMINATION: MRI THORACIC SPINE WO IVCON, MRI CERVICAL SPINE WO IVCON HISTORY: Intervertebral disc disorders with radiculopathy, lumbar region Other intervertebral disc degeneration, lumbar region Spinal stenosis, cervical region TECHNIQUE: Routine cervical, thoracic, and lumbosacral spine MR protocol without gadolinium. M: MRCTWO_2 COMPARISON: 10/16/2016. RESULT: CERVICAL: Counting reference: Craniocervical junction. Alignment: There is straightening of the normal cervical lordosis which may be due to patient positioning versus muscular strain. Craniocervical junction: Craniocervical junction is normal. Cord: The cervical spinal cord is within normal limits of signal intensity and morphology. Bone marrow signal/fracture: No evidence of pathologic marrow infiltration. No evidence of prior fracture. Cervical soft tissues: There is interval disruption of posterior paraspinal soft tissues within the subcutaneous tissues overlying the lower cervical spine. This correlates with a patient history of surgical removal of hematoma. There is no involvement of underlying musculature. C2-C3: Canal and foramina are patent. C3-C4: Canal and foramina are patent. C4-C5: Uncovertebral change moderately narrows the left foramen. Disk osteophyte change results in flattening of the ventral thecal sac. The central canal and right foramen are patent. C5-C6: Uncovertebral change moderately narrows the left foramen. The central canal and right foramen are patent. C6-C7: Canal and foramina are patent. Interspace is mildly narrowed. Disk osteophyte change results in flattening of the ventral thecal sac. C7-T1: Canal and foramina are patent. THORACIC: Counting Reference: Lumbosacral junction.. For the purposes of this report, the most caudal normal disc space in the lumbar region will be labeled as L5-S1. The iliac crest will serve as a secondary landmark to identify the L4-5 level. Exceptions: none Alignment: Alignment is anatomic. Cord: The thoracic spinal cord is within normal limits of signal intensity and morphology. Bone marrow signal/fracture: No evidence of pathologic marrow infiltration. No evidence of prior fracture. Thoracic soft tissues: The paraspinal soft tissues are within normal limits. Canal and foramina: There is disc osteophyte change to the left at T6-7 with contact the spinal cord without cord compression. Disc osteophyte change when with the ventral lateral thecal sac on the left T7-8 bilaterally T8-9 and on the left T9-T10. The thoracic canal and foramina are otherwise patent within the constraints of the study. IMPRESSION: No significant canal stenosis of cervical or thoracic spine. Mid cervical spondylosis with foraminal encroachment as detailed, unchanged. Mild mid thoracic spondylosis without cord compression or foraminal encroachment. Skydiving Instructor: PSCB Transcribe Date/Time: Apr 30 2018 3:12P Dictated by : LUZ CASSIDY MD This examination was interpreted and the report reviewed and electronically signed by: LUZ CASSIDY MD on Apr 30 2018 3:21PM EST [id number] MRI THORACIC SPINE WO Observed: 04/30/2018 Status: F Source: [place] IVCON 2:51 PM [facility] REPOSITORY * * *Final Report* * * DATE OF EXAM: Apr 30 2018 2:51PM [facility] 0325 - MRI THORACIC SPINE WO IVCON / PROCEDURE REASON: multiple diagnoses * * * * Physician Interpretation * * * * EXAMINATION: MRI THORACIC SPINE WO IVCON, MRI CERVICAL SPINE WO IVCON HISTORY: Intervertebral disc disorders with radiculopathy, lumbar region Other intervertebral disc degeneration, lumbar region Spinal stenosis, cervical region TECHNIQUE: Routine cervical, thoracic, and lumbosacral spine MR protocol without gadolinium. M: MRCTWO_2 COMPARISON: 10/16/2016. RESULT: CERVICAL: Counting reference: Craniocervical junction. Alignment: There is straightening of the normal cervical lordosis which may be due to patient positioning versus muscular strain. Craniocervical junction: Craniocervical junction is normal. Cord: The cervical spinal cord is within normal limits of signal intensity and morphology. Bone marrow signal/fracture: No evidence of pathologic marrow infiltration. No evidence of prior fracture. Cervical soft tissues: There is interval disruption of posterior paraspinal soft tissues within the subcutaneous tissues overlying the lower cervical spine. This correlates with a patient history of surgical removal of hematoma. There is no involvement of underlying musculature. C2-C3: Canal and foramina are patent. C3-C4: Canal and foramina are patent. C4-C5: Uncovertebral change moderately narrows the left foramen. Disk osteophyte change results in flattening of the ventral thecal sac. The central canal and right foramen are patent. C5-C6: Uncovertebral change moderately narrows the left foramen. The central canal and right foramen are patent. C6-C7: Canal and foramina are patent. Interspace is mildly narrowed. Disk osteophyte change results in flattening of the ventral thecal sac. C7-T1: Canal and foramina are patent. THORACIC: Counting Reference: Lumbosacral junction.. For the purposes of this report, the most caudal normal disc space in the lumbar region will be labeled as L5-S1. The iliac crest will serve as a secondary landmark to identify the L4-5 level. Exceptions: none Alignment: Alignment is anatomic. Cord: The thoracic spinal cord is within normal limits of signal intensity and morphology. Bone marrow signal/fracture: No evidence of pathologic marrow infiltration. No evidence of prior fracture. Thoracic soft tissues: The paraspinal soft tissues are within normal limits. Canal and foramina: There is disc osteophyte change to the left at T6-7 with contact the spinal cord without cord compression. Disc osteophyte change when with the ventral lateral thecal sac on the left T7-8 bilaterally T8-9 and on the left T9-T10. The thoracic canal and foramina are otherwise patent within the constraints of the study. IMPRESSION: No significant canal stenosis of cervical or thoracic spine. Mid cervical spondylosis with foraminal encroachment as detailed, unchanged. Mild mid thoracic spondylosis without cord compression or foraminal encroachment. Skydiving Instructor: BHAVNA Transcribe Date/Time: Apr 30 2018 3:12P Dictated by : LUZ CASSIDY MD This examination was interpreted and the report reviewed and electronically signed by: LUZ CASSIDY MD on Apr 30 2018 3:21PM EST [id number] PROGRESS Observed: 04/30/2018 Status: COMPLETED Source: [place] 2:36 PM [facility] REPOSITORY HNO ID: [id number] Author: Brayan Pastrana (Rt) Service: (none) Author Type: [employer]els Research Engineer Type: Progress Notes Filed: 04/30/2018 2:36 PM Note Text: Radiology Service Progress Note PATIENT NAME: Gay Coleman DATE OF SERVICE: April 30, 2018 TIME: 2:36 PM PATIENT IDENTITY VERIFICATION COMPLETED USING TWO (2) METHODS: Patient confirmed name verbally and Date of . PATIENT GENDER DATA: Female. status: : No status: NO. PATIENT RELEVANT IMPLANT DATA REVIEWED: Yes RADIOLOGY DEPARTMENT: MR; Exam(s) Completed: Spine: Cervical spine PERIPHERAL IV DATA: Not applicable SIGNED BY: RT Zeina April 30, 2018 2:36 PM PROGRESS Observed: 04/30/2018 Status: COMPLETED Source: [place] 2:35 PM [facility] REPOSITORY HNO ID: [id number] Author: Brayan Pastrana (Rt) Service: (none) Author Type: [employer] Fuels Research Engineer Type: Progress Notes Filed: 04/30/2018 2:35 PM Note Text: Radiology Service Progress Note PATIENT NAME: Gay Coleman DATE OF SERVICE: April 30, 2018 TIME: 2:35 PM PATIENT IDENTITY VERIFICATION COMPLETED USING TWO (2) METHODS: Patient confirmed name verbally and Date of . PATIENT GENDER DATA: Female. status: : No status: NO. PATIENT RELEVANT IMPLANT DATA REVIEWED: Yes RADIOLOGY DEPARTMENT: MR; Exam(s) Completed: Spine: Thoracic spine PERIPHERAL IV DATA: Not applicable SIGNED BY: RT Zeina April 30, 2018 2:35 PM INITAL EVALUATION (1) Observed: 04/28/2018 Status: F Source: [facility] 2:35 PM [facility] REPOSITORY [facility] [address] [place] [address]. [address] [place], [place] [address] Fax REHABILITATION SERVICES INITIAL EVALUATION MR#: [id number] Acct: [id number] Name: GAY COLEMAN Rep #: [id number] : 1965 52 From: Claudia Downing PT, Cert. MDT Referring Dr.: Everton Cash, DO Status: REG RCR Insurance: [facility] SELF PAY INSURANCE Patient's Visit Information GAY COLEMAN is a 52 year old F referred to Physical Therapy by Everton Acevedo with a diagnosis of CERVICAL AND LUMBAR DDD WITH RADICULOPATHY.. Date of Evaluation: 04/28/18 Physical Therapist: Claudia Downing - Visit Plan Frequency: 2x /Week Duration: 4 Weeks Plan: AQUATIC THERAPY FOR PAIN RELEIF, POSTURE CORRECTION/STRENGTHENING, INSTRUCTION IN APPROPRIATE BODY MECHANICS AND ACTIVITY MODIFICATIONS. DLS STARTING WITH A NEUTRAL SPINE. RUBÉN UE AND LE ROM, STRETCHING AND STRENGTHENING. HEP INSTRUCTION. - Subjective Subjective: PATIENT REPORTS SX'S IN NECK, BACK, RIGHT FINGERS, AND RUBÉN LE'S. NO PAIN OR N/T IN LEGS, JUST WEAKNESS. RIGHT FINGERS HAVE INTERMITTENT TINGLING. INCREASED SX'S WITH TURNING HEADLEFT OR RIGHT, MOVING ANKLE IN [place], TWISTING IN SITTING, BENDING BACKWARDS, DRIVING, WALKING, STANDING. DECREASED SX'S WITH [facility]ASSGE THERAPY, [facility] PT AT , [facility], MEDICINE. AUG 2017 SAW SPINE SURGEON - SURGERY NOT RECOMMENDED AT THAT TIME. OCCUPATION - UNEMPLOYEED. NECK PAIN RANGING 6-10/10, LOW BACK PAIN RANGIN 6-8/10 AND LEFT ANKLE PAIN RANGIN 8-9/10. NECK X-RAYS AND MRI ABOUT 9 MONTHS AGO. LUMBAR X-RAYS AND MRI ABOUT 9 MONTHS AGO. PMH: LEFT ANKLE ISSUES WITH SURGERY PENDING - DATE/MRI NOT SCHEDULED. WEARING BRACE WBAT. ASTHMA. SEP 2017 LIPOMA REMOVED FROM NECK AND GOT STAPH INFECTION. CLEARED BY DR. ALVAREZ ABOUT A WEEK AGO (MARCH 31) TO GET BACK IN POOL PER PATIENT REPORT. COPD, IBS, LEFT HEARING AID (NEDDS RIGHT), IRREGULAR HEART BEAT. TRYING TO GET INTO PULMONARY REHAB. PSORIASIS. - Pain Cervical Spine Pain Intensity (Out of 10): 7 Pain Intensity Range: 6, 10 Lumbar Spine Pain Intensity (Out of 10): 8 Pain Intensity Range: 6, 8 - Objective UPON EXAM, LUMBAR MVMT LOSS IS FOLLOWS: FLEX - NIL, EXT - CHINTAN, RUBÉN SG - CHINTAN. C/O PAIN WITH EXT AND SG TESTING. UNABLE TO TRANSFER SIT TO STAND WITHOUT UE ASSIST. PT LEANS ON RIGHT FOREARM TO HELP HERSELF UP FROM CHAIR. RIGHT PHILOSOPHY SPECIALIST 55LBS, LEFT PHILOSOPHY SPECIALIST 45LBS. RUBÉN UE AROM WFL. RUBÉN UE STRENGTH GROSSLY 4-5/5 WITH MMT. POSITIVE RUBÉN LE DURAL SIGNS RIGHT > LEFT. SLS TEST WITH LEFT ANKLE BRACE ON = 3 S ON LEFT AND 10 SEC ON RIGHT WITHOUT UE ASSIST. RUBÉN LE STRENGTH GROSSLY 4-5 WITH MMT XECEPT LEFT ANKLE ONLY TESTED DORSIFLEX 4/5 AND GOOD RUBÉN HIP FLEX ROM AND GOOD RUBÉN KNEE FLEX ROM TO 135 DEG. FULL RUBÉN KNEE EXT ROM. CERVICAL MVMT LOSS: AROM W/MOD LIMITATION ALL PLANES DUE TO PT STOPPIING TO AVOID PAIN (FLEX MIN LOSS). OBSERVATION: LARGE POST CERVICAL SCAR WITHOUT ANY OPEN AREAS NOTED. - Goals Goal 1:: DECREASE C/O SPINE PAIN Goal Time Frame: 4-6 Weeks Goal 2:: IMPROVE STANDING, WALKING, AND ADL FUNCTION Goal Time Frame: 4-6 Weeks Goal 3:: INDEP WATER EX PROGRAM Goal Time Frame: 4-6 Weeks Goal 4:: INSTRUCT IN PROPHYLAXIS Goal Time Frame: 4-6 Weeks - Rehabilitation Potential Rehabilitation Potential: Fair - Anticipated Interventions Patient/Client Instruction: Educate patient on: Condition, Plan of Care, Risk Factors, Benefits of Fitness Program For the Purpose of:: To improve self management Therapeutic Exercise to Include: Strength training, Body mechanics, Postural training, Flexibilty training, In an aquatic setting, Active ROM, Dynamic Lumbar Stabilization, Scapular Strength/Stabilization For the Purpose of:: To decrease pain, To increase ROM, To improve muscle performance and motor function, To increase tolerance to activity/condition/position, To improve ability of physical actions for home/community/work/leisure, To improve gait and locomotor functions Thank you for the opportunity to evaluate your patient. For Medicare and Medicare HMO plans, please review the plan of care and approve it. It will need to be FAXED BACK to us at [phone] for Medicare purposes. Please let me know if there are questions or concerns regarding this plan of care. Physician Signature: Date: <Electronically signed by Claudia Downing PT, Cert. MDT> 04/28/18 1435 CC: Everton Cash DO ASHLEY Signed For Medicare only, by signing this I certify the plan of care. Physicians Signature Date PROGRESS Observed: 04/27/2018 Status: COMPLETED Source: [place] 10:09 AM [facility] [place] REPOSITORY HNO ID: [id number] Author: Kay Maravilla (Therapeutic Massage Technician) Griselda Service: (none) Author Type: Nurse Practitioner Type: Progress Notes Filed: 04/27/2018 10:29 AM Note Text: Vascular Surgery Evaluation GAY COLEMAN is a 52 year old female here for pre-op update. Diagnosis: posterior tibal tendinitis left foot and ankle Surgeon: Dr. Yang Date of surgery: unknown BP 136/90 Pulse (!) 20 Resp 16 Wt 109.3 kg (241 lb) LMP 03/02/2015 BMI 37.75 kg/m? Patient presents with: Pre-Op Exam: Dr. Yang Latex allergy: No Contrast dye allergy: No Patient is on following blood thinners: none Pacemaker: No Tests: None Cardiac studies: none-recently completed Previous surgery: yes Problems with anesthesia: yes, tolerated well with H/A Family issues with anesthesia: no Taking all medications as prescribed: yes PAST MEDICAL HISTORY Diagnosis Date - Allergic rhinitis, cause unspecified Allergic rhinitis - Asthma - Bloating - Carpal tunnel syndrome, bilateral 10/22/2016 - Constipation - Depressive disorder, not elsewhere classified - Eczema - Impaired fasting glucose 10/2015 - Insomnia Dr Fitzpatrick, on Bipap - Liver cyst 08/2016 benign - Lumbar radiculopathy, chronic L5/S1 - Migraine without aura 12/26/2006 - Mild carpal tunnel syndrome 04/2016 - OAB (overactive bladder) 10/31/2016 - OLGA (obstructive sleep apnea) Dr Sibilia, on Bipap - Other chronic sinusitis - Perimenopausal 11/16/2012 - Psoriasis Gets injections every 3 months for this from Sameer Mata MD - Sensorineural hearing loss Bellmercedezyusef PAST SURGICAL HISTORY Procedure Laterality Date - BREAST BIOPSY Right - CARPAL TUNNEL Bilateral 01/2017 - CATARACT SURGERY, COMPLEX right eye, left eye - COLONOSCOP W/ OR W/O BRSH SPEC 01/26/15 Colonoscopy - EXCISION NOSE POLYP(S),SIMPLE Nasal polypectomy - HYSTERECTOMY HX 2014 TRH with BSO - IANDD HEMATOMA 11/27/2017 incision and drainage of infected hematoma [facility] - PAST SURGICAL HISTORY OF 2015 bilateral foot bxs - PAST SURGICAL HISTORY OF 2014 nasal surgery/Turbinates - PAST SURGICAL HISTORY OF 04/2015 adnexal mass removal- benign - PAST SURGICAL HISTORY OF Bilateral 2011 bilateral breast reduction - PAST SURGICAL HISTORY OF mass removed from neck - PAST SURGICAL HISTORY OF 11/27/2017 IANDD infected hematoma upper back/posterior neck - REMOVAL OF TONSILS,<12 Y/O Tonsillectomy AND adenoidectomy - REPAIR OF NASAL SEPTUM Septoplasty - TORIC LENS left eye Social History Marital status: Spouse name: Inocente Years of education: 14 Number of children: 0 Occupational History Occupation Employer [employer] Social History Main Topics Smoking status: Never Smoker Smokeless tobacco: Never Used Alcohol use: No Drug use: No Sexual activity: Yes Partners with: Male 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 Take with food, once daily Phentermine HCl (ADIPEX-P) 37.5 mg tablet Take 1 tablet by mouth once daily for 30 days. BMI 39 cefdinir (OMNICEF) 300 mg capsule Take 1 capsule by mouth every 12 hours. fluticasone (FLONASE) 50 mcg/actuation nasal spray Use 2 Sprays in each nostril once daily. Rinse mouth after use. ADVAIR DISKUS 250-50 mcg/dose dsdv INHALE ONE DOSE BY MOUTH TWICE DAILY. *RINSE AND GARGLE MOUTH WITH WATER AFTER USE* COMPOUNDED PRESCRIPTION Aqua Therapy DX: E66.01; M50.30; M51.36 COMPOUNDED PRESCRIPTION Consult pulmonary rehab estrogens conjugated (PREMARIN) 0.9 mg tablet Take 1 tablet by mouth once daily. pregabalin (LYRICA) 100 mg capsule Take 100 mg by mouth three times daily. buPROPion SR (ZYBAN SR; WELLBUTRIN SR) 150 mg 12 hr tablet Take 1 tablet by mouth twice daily. meclizine (ANTIVERT) 12.5 mg tab Take 1-2 tablets by mouth twice daily as needed (dizziness). albuterol HFA (VENTOLIN HFA) 90 mcg/actuation inhaler Inhale 2 Puffs as instructed every 4 hours as needed for Wheezing/Shortness of Breath. FLUoxetine HCl (PROZAC) 40 mg capsule Take 1 capsule by mouth once daily. mirabegron (MYRBETRIQ) 25 mg Tb24 Take 1 tablet by mouth once daily. albuterol (PROVENTIL) 2.5 mg /3 mL (0.083 %) nebulizer solution Use 3 mL via nebulizer every 4 hours as needed for Wheezing/Shortness of Breath. Use over 5-15minutes. diclofenac, EC, (VOLTAREN) 75 mg EC tablet Take 1 tablet by mouth twice daily. For pain/inflammation. Take with food. PER DR. MALONE diclofenac sodium (VOLTAREN) 1 % topical gel Apply to affected area four times daily. PER DR. MALONE baclofen (LIORESAL) 10 mg tablet Take 1 tablet by mouth twice daily. (Patient taking differently: Take 10 mg by mouth three times daily.) TENS Units malika 1 Device as needed. COMPOUNDED PRESCRIPTION Order: cock up splints (2)Dx: carpal tunnel syndrome bilateral Cholecalciferol, Vitamin D3, 5,000 unit tab Take 5,000 Units by mouth once daily. cyanocobalamin (VITAMIN B-12) 1,000 mcg tab Take 1,000 mcg by mouth once daily. Docusate Sodium 250 mg capsule Take 250 mg by mouth once daily. No current facility-administered medications for this visit. ALLERGIES Allergen Reactions - Dust - Nabumetone GI Upset - Seasonal Allergies Other: See Comments - Smoke - Thimerisol [Thimero* Intolerance PHYSICAL EXAMINATION: BP 136/90 Pulse (!) 20 Resp 16 Wt 109.3 kg (241 lb) LMP 03/02/2015 BMI 37.75 kg/m? General appearance: Well appearing, alert, in no acute distress, well-hydrated, well nourished., Obese Skin: Skin color, texture, turgor normal, no suspicious rashes or lesions Head: Normocephalic, no masses, lesions, tenderness or abnormalities Eyes: Anicteric sclera Nose/Sinuses: septum midline Oropharynx: Lips, mucosa, and tongue normal, teeth and gums normal, oropharynx normal Neck: Supple, no adenopathy; thyroid symmetric, normal size, no bruits Lungs: Lungs clear to auscultation. No wheezing, rhonchi, rales Heart: RRR without murmur, gallop, or rubs. No ectopy Abdomen: Normal abdominal exam, Abdomen soft, non-tender. Bowel sounds normal. No masses, organomegaly ASSESSMENT/PLAN: 1. Preop examination - ICD9: V72.84, ICD10: Z01.818 - paperwork completed Kay Villalobos APRN.CNP CNOV Observed: 04/27/2018 Status: COMPLETED Source: [place] 10:00 AM [facility] REPOSITORY Office Visit (FAMPWS) GAY COLEMAN ([id number]) 1965 F Date Time Provider Department 04/27/18 10:00 AM KAY VILLALOBOS (ZANA) FAMPWS During your visit today, we recorded the following information about you: Pulse Respiration Blood pressure Weight 20/minute 16/minute 136/90 109.3 kg Kay Villalobos APRN.CNP 04/27/2018 10:29 AM Signed Vascular Surgery Evaluation GAY COLEMAN is a 52 year old female here for pre-op update. Diagnosis: posterior tibal tendinitis left foot and ankle Surgeon: Dr. Yang Date of surgery: unknown BP 136/90 Pulse (!) 20 Resp 16 Wt 109.3 kg (241 lb) LMP 03/02/2015 BMI 37.75 kg/m? Patient presents with: Pre-Op Exam: Dr. Yang Latex allergy: No Contrast dye allergy: No Patient is on following blood thinners: none Pacemaker: No Tests: None Cardiac studies: none-recently completed Previous surgery: yes Problems with anesthesia: yes, tolerated well with H/A Family issues with anesthesia: no Taking all medications as prescribed: yes PAST MEDICAL HISTORY Diagnosis Date - Allergic rhinitis, cause unspecified Allergic rhinitis - Asthma - Bloating - Carpal tunnel syndrome, bilateral 10/22/2016 - Constipation - Depressive disorder, not elsewhere classified - Eczema - Impaired fasting glucose 10/2015 - Insomnia Dr Fitzpatrick, on Bipap - Liver cyst 08/2016 benign - Lumbar radiculopathy, chronic L5/S1 - Migraine without aura 12/26/2006 - Mild carpal tunnel syndrome 04/2016 - OAB (overactive bladder) 10/31/2016 - OLGA (obstructive sleep apnea) Dr Fitzpatrick, on Bipap - Other chronic sinusitis - Perimenopausal 11/16/2012 - Psoriasis Gets injections every 3 months for this from Sameer Mata MD - Sensorineural hearing loss [place] PAST SURGICAL HISTORY Procedure Laterality Date - BREAST BIOPSY Right - CARPAL TUNNEL Bilateral 01/2017 - CATARACT SURGERY, COMPLEX right eye, left eye - COLONOSCOP W/ OR W/O BRSH SPEC 01/26/15 Colonoscopy - EXCISION NOSE POLYP(S),SIMPLE Nasal polypectomy - HYSTERECTOMY HX 2014 TRH with BSO - IANDD HEMATOMA 11/27/2017 incision and drainage of infected hematoma [facility] - PAST SURGICAL HISTORY OF 2015 bilateral foot bxs - PAST SURGICAL HISTORY OF 2015 nasal surgery/Turbinates - PAST SURGICAL HISTORY OF 04/2015 adnexal mass removal- benign - PAST SURGICAL HISTORY OF Bilateral 2011 bilateral breast reduction - PAST SURGICAL HISTORY OF mass removed from neck - PAST SURGICAL HISTORY OF 11/27/2017 IANDD infected hematoma upper back/posterior neck - REMOVAL OF TONSILS,<12 Y/O Tonsillectomy AND adenoidectomy - REPAIR OF NASAL SEPTUM Septoplasty - TORIC LENS left eye Social History Marital status: Spouse name: Inocente Years of education: 14 Number of children: 0 Occupational History Occupation Employer [employer] Social History Main Topics Smoking status: Never Smoker Smokeless tobacco: Never Used Alcohol use: No Drug use: No Sexual activity: Yes Partners with: Male 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 Take with food, once daily Phentermine HCl (ADIPEX-P) 37.5 mg tablet Take 1 tablet by mouth once daily for 30 days. BMI 39 cefdinir (OMNICEF) 300 mg capsule Take 1 capsule by mouth every 12 hours. fluticasone (FLONASE) 50 mcg/actuation nasal spray Use 2 Sprays in each nostril once daily. Rinse mouth after use. ADVAIR DISKUS 250-50 mcg/dose dsdv INHALE ONE DOSE BY MOUTH TWICE DAILY. *RINSE AND GARGLE MOUTH WITH WATER AFTER USE* COMPOUNDED PRESCRIPTION Aqua Therapy DX: E66.01; M50.30; M51.36 COMPOUNDED PRESCRIPTION Consult pulmonary rehab estrogens conjugated (PREMARIN) 0.9 mg tablet Take 1 tablet by mouth once daily. pregabalin (LYRICA) 100 mg capsule Take 100 mg by mouth three times daily. buPROPion SR (ZYBAN SR; WELLBUTRIN SR) 150 mg 12 hr tablet Take 1 tablet by mouth twice daily. meclizine (ANTIVERT) 12.5 mg tab Take 1-2 tablets by mouth twice daily as needed (dizziness). albuterol HFA (VENTOLIN HFA) 90 mcg/actuation inhaler Inhale 2 Puffs as instructed every 4 hours as needed for Wheezing/Shortness of Breath. FLUoxetine HCl (PROZAC) 40 mg capsule Take 1 capsule by mouth once daily. mirabegron (MYRBETRIQ) 25 mg Tb24 Take 1 tablet by mouth once daily. albuterol (PROVENTIL) 2.5 mg /3 mL (0.083 %) nebulizer solution Use 3 mL via nebulizer every 4 hours as needed for Wheezing/Shortness of Breath. Use over 5-15minutes. diclofenac, EC, (VOLTAREN) 75 mg EC tablet Take 1 tablet by mouth twice daily. For pain/inflammation. Take with food. PER DR. MALONE diclofenac sodium (VOLTAREN) 1 % topical gel Apply to affected area four times daily. PER DR. MALONE baclofen (LIORESAL) 10 mg tablet Take 1 tablet by mouth twice daily. (Patient taking differently: Take 10 mg by mouth three times daily.) TENS Units malika 1 Device as needed. COMPOUNDED PRESCRIPTION Order: cock up splints (2)Dx: carpal tunnel syndrome bilateral Cholecalciferol, Vitamin D3, 5,000 unit tab Take 5,000 Units by mouth once daily. cyanocobalamin (VITAMIN B-12) 1,000 mcg tab Take 1,000 mcg by mouth once daily. Docusate Sodium 250 mg capsule Take 250 mg by mouth once daily. No current facility-administered medications for this visit. ALLERGIES Allergen Reactions - Dust - Nabumetone GI Upset - Seasonal Allergies Other: See Comments - Smoke - Thimerisol [Thimero* Intolerance PHYSICAL EXAMINATION: BP 136/90 Pulse (!) 20 Resp 16 Wt 109.3 kg (241 lb) LMP 03/02/2015 BMI 37.75 kg/m? General appearance: Well appearing, alert, in no acute distress, well-hydrated, well nourished., Obese Skin: Skin color, texture, turgor normal, no suspicious rashes or lesions Head: Normocephalic, no masses, lesions, tenderness or abnormalities Eyes: Anicteric sclera Nose/Sinuses: septum midline Oropharynx: Lips, mucosa, and tongue normal, teeth and gums normal, oropharynx normal Neck: Supple, no adenopathy; thyroid symmetric, normal size, no bruits Lungs: Lungs clear to auscultation. No wheezing, rhonchi, rales Heart: RRR without murmur, gallop, or rubs. No ectopy Abdomen: Normal abdominal exam, Abdomen soft, non-tender. Bowel sounds normal. No masses, organomegaly ASSESSMENT/PLAN: 1. Preop examination - ICD9: V72.84, ICD10: Z01.818 - paperwork completed MARYMA Maguire APRN.CNP 04/27/2018 10:32 AM Signed Addended by: KAY VILLALOBOS CNP on: 04/27/2018 10:32 AM Modules accepted: Orders, SmartSet Referring Provider: SELF [200] Allergies As of Date: 04/27/2018 Noted Allergy Reaction DUST 12/26/2006 NABUMETONE 10/04/2014 8 - GI Upset SEASONAL ALLERGIES 06/19/2015 14 - Other: See Comments SMOKE 12/26/2006 THIMERISOL (THIMEROSAL) 01/09/2016 5 - Intolerance Date Reviewed: 04/27/2018 Reviewed by: Aakash Burton LPN - Fully Assessed Reason for Visit: Pre-Op Exam [87] Cmt: Dr. Yang Primary Visit Diagnosis:Preop examination [Z01.818] Other Visit Diagnosis:Need for vaccination [Z23] Order(s):ZOSTER VACC RECOMBINANT,IM [[id number]] Order #: [id number] Prescriptions as of 04/27/2018 Sig: LINZESS 290 MCG CAPSULE TAKE ONE CAPSULE BY MOUTH ONC* PREDNISONE 10 MG TABLET Take 40 mg x 3 days, 20 mg x * PHENTERMINE 37.5 MG TABLET Take 1 tablet by mouth once d* CEFDINIR 300 MG CAPSULE Take 1 capsule by mouth every* FLUTICASONE 50 MCG/ACTUATION * Use 2 Sprays in each nostril * ADVAIR DISKUS 250 MCG-50 MCG/* INHALE ONE DOSE BY MOUTH TWIC* COMPOUNDED PRESCRIPTION Aqua Therapy DX: E66.01; M5* COMPOUNDED PRESCRIPTION Consult pulmonary rehab CONJUGATED ESTROGENS 0.9 MG T* Take 1 tablet by mouth once d* PREGABALIN 100 MG CAPSULE Take 100 mg by mouth three ti* BUPROPION HCL SR 150 MG TABLE* Take 1 tablet by mouth twice * MECLIZINE 12.5 MG TABLET Take 1-2 tablets by mouth twi* ALBUTEROL SULFATE HFA 90 MCG/* Inhale 2 Puffs as instructed * FLUOXETINE 40 MG CAPSULE Take 1 capsule by mouth once * MIRABEGRON ER 25 MG TABLET,EX* Take 1 tablet by mouth once d* ALBUTEROL SULFATE 2.5 MG/3 ML* Use 3 mL via nebulizer every * DICLOFENAC SODIUM 75 MG TABLE* Take 1 tablet by mouth twice * DICLOFENAC 1 % TOPICAL GEL Apply to affected area four * BACLOFEN 10 MG TABLET Take 1 tablet by mouth twice * Patient taking differently: Take 10 mg by mouth three justino* TRANSCUTANEOUS ELECTRICAL NER* 1 Device as needed. COMPOUNDED PRESCRIPTION Order: cock up splints (2) D* CHOLECALCIFEROL (VITAMIN D3) * Take 5,000 Units by mouth onc* CYANOCOBALAMIN (VIT B-12) 1,0* Take 1,000 mcg by mouth once * DOCUSATE SODIUM 250 MG CAPSULE Take 250 mg by mouth once sudhakar* Problem List As Of Date 04/27/2018 Noted Resolved Migraine without aura [346.1] INVALID FOR*07/28/2017 Dysthymia [F34.1] INVALID FOR* Perimenopausal [N95.1] INVALID FOR*07/28/2017 Breast hypertrophy [N62] INVALID FOR* Bloating [R14.0] Constipation [K59.00] Adnexal mass [N94.9] INVALID FOR*10/31/2016 Flatulence, eructation, and gas pain [R14.3, R1*INVALID FOR*01/26/2015 Unspecified constipation [K59.00] INVALID FOR*01/26/2015 Midline low back pain without sciatica [M54.5] INVALID FOR* Intervertebral disc disorder with radiculopathy*INVALID FOR* DDD (degenerative disc disease), lumbar [M51.36]INVALID FOR* Cervical disc disorder with radiculopathy [M50.*INVALID FOR* DDD (degenerative disc disease), cervical [M50.*INVALID FOR* Carpal tunnel syndrome, bilateral [G56.03] INVALID FOR*07/28/2017 Asthma [J45.909] INVALID FOR*01/20/2018 OLGA (obstructive sleep apnea) [G47.33] INVALID FOR* More... Psoriasis [L40.9] INVALID FOR* OAB (overactive bladder) [N32.81] INVALID FOR* Impaired fasting glucose [R73.01] INVALID FOR* Exercise-induced asthma [J45.990] INVALID FOR* Obesity, Class III, BMI 40-49.9 (morbid obesity*INVALID FOR* Irritable bowel syndrome with constipation [K58*INVALID FOR* ANDREW (generalized anxiety disorder) [F41.1] INVALID FOR* Neck mass [R22.1] INVALID FOR* Encounter Status:Closed by KAY VILLALOBOS CNP on 04/27/18 PROGRESS Observed: 04/23/2018 Status: COMPLETED Source: [place] 2:14 PM [facility] [place] REPOSITORY HNO ID: [id number] Author: Kay Maravilla (Zana) Griselda Service: (none) Author Type: Nurse Practitioner Type: Progress Notes Filed: 04/23/2018 3:08 PM Note Text: This note was created using NoteWriter. Subjective Gay Coleman is a 52 year old female. The history is provided by the patient. No world language teacher was used. URI She complains of cough, hoarse voice, shortness of breath and sputum production. There is no wheezing. This is a recurrent problem. The current episode started 1 to 4 weeks ago. The problem occurs constantly. The problem has been gradually worsening. The cough is productive of sputum. Associated symptoms include headaches, malaise/fatigue, nasal congestion and a sore throat. Pertinent negatives include no fever. Her symptoms are alleviated by nothing. Ineffective treatments: Stu. Was seen and treated for sinusitis by ENT. Started antibiotics 04/16/2018. Has not completed treatment. Patient did not notify ENT office of her continued symptoms. Using MARCIE multiple times a day- using nebulizer and inhaler. Also wanting refill on Adipex. Down 4 lbs since last weight check. Tolerating well. Review of Systems Constitutional: Positive for malaise/fatigue. Negative for fever. HENT: Positive for hoarse voice and sore throat. Respiratory: Positive for cough, sputum production and shortness of breath. Negative for wheezing. Neurological: Positive for headaches. Objective BP 118/82 Pulse 100 Temp 37.1 ?C (98.8 ?F) Resp 16 Wt 109.3 kg (241 lb) LMP 03/02/2015 SpO2 98% BMI 37.75 kg/m? Physical Exam Constitutional: She appears well-developed and well-nourished. No distress. HENT: Head: Normocephalic and atraumatic. Right Ear: External ear normal. Left Ear: External ear normal. Nose: Mucosal edema present. No nose lacerations, sinus tenderness or nasal deformity. Right sinus exhibits maxillary sinus tenderness and frontal sinus tenderness. Left sinus exhibits maxillary sinus tenderness and frontal sinus tenderness. Mouth/Throat: Uvula is midline, oropharynx is clear and moist and mucous membranes are normal. Green purulent drainage Skin: She is not diaphoretic. ASSESSMENT/PLAN: 1. Sinusitis, unspecified chronicity, unspecified location - ICD9: 473.9, ICD10: J32.9 (primary diagnosis) - Follow up in one week if symptoms persist or worsen. - PREDNISONE 10 MG TABLET - discussed over use of MARCIE 2. Obesity, Class II, BMI 35-39.9 - ICD9: 278.00, ICD10: E66.9 - OARRS website checked and validated. All prescriptions have been APPROPRIATELY filled. No suspicious activity was identified.- 04/23/2018 by Kay Villalobos APRN.CNP - PHENTERMINE 37.5 MG TABLET - f/u in 1 month. Kay Villalobos APRN.CNP CNOV Observed: 04/23/2018 Status: COMPLETED Source: [place] 2:00 PM [facility] REPOSITORY [facility] GAY COLEMAN ([id number]) 1965 F Date Time Provider Department 04/23/18 2:00 PM KAY VILLALOBOS (ZANA) [facility] During your visit today, we recorded the following information about you: Temperature Pulse Respiration Blood pressure 98.8 degrees 100/minute 16/minute 118/82 Weight 109.3 kg Kay Villalobos APRN.CNP 04/23/2018 3:08 PM Signed This note was created using NoteWriter. Subjective Gay Coleman is a 52 year old female. The history is provided by the patient. No world language teacher was used. URI She complains of cough, hoarse voice, shortness of breath and sputum production. There is no wheezing. This is a recurrent problem. The current episode started 1 to 4 weeks ago. The problem occurs constantly. The problem has been gradually worsening. The cough is productive of sputum. Associated symptoms include headaches, malaise/fatigue, nasal congestion and a sore throat. Pertinent negatives include no fever. Her symptoms are alleviated by nothing. Ineffective treatments: Was seen and treated for sinusitis by ENT. Started antibiotics 04/16/2018. Has not completed treatment. Patient did not notify ENT office of her continued symptoms. Using MARCIE multiple times a day- using nebulizer and inhaler. Also wanting refill on Adipex. Down 4 lbs since last weight check. Tolerating well. Review of Systems Constitutional: Positive for malaise/fatigue. Negative for fever. HENT: Positive for hoarse voice and sore throat. Respiratory: Positive for cough, sputum production and shortness of breath. Negative for wheezing. Neurological: Positive for headaches. Objective BP 118/82 Pulse 100 Temp 37.1 ?C (98.8 ?F) Resp 16 Wt 109.3 kg (241 lb) LMP 03/02/2015 SpO2 98% BMI 37.75 kg/m? Physical Exam Constitutional: She appears well-developed and well-nourished. No distress. HENT: Head: Normocephalic and atraumatic. Right Ear: External ear normal. Left Ear: External ear normal. Nose: Mucosal edema present. No nose lacerations, sinus tenderness or nasal deformity. Right sinus exhibits maxillary sinus tenderness and frontal sinus tenderness. Left sinus exhibits maxillary sinus tenderness and frontal sinus tenderness. Mouth/Throat: Uvula is midline, oropharynx is clear and moist and mucous membranes are normal. Green purulent drainage Skin: She is not diaphoretic. ASSESSMENT/PLAN: 1. Sinusitis, unspecified chronicity, unspecified location - ICD9: 473.9, ICD10: J32.9 (primary diagnosis) - Follow up in one week if symptoms persist or worsen. - PREDNISONE 10 MG TABLET - discussed over use of MARCIE 2. Obesity, Class II, BMI 35-39.9 - ICD9: 278.00, ICD10: E66.9 - OARRS website checked and validated. All prescriptions have been APPROPRIATELY filled. No suspicious activity was identified.- 04/23/2018 by Kay Villalobos APRN.FINISHER CARD TENDER - PHENTERMINE 37.5 MG TABLET - f/u in 1 month. Kay Villalobos APRN.ZANA Referring Provider: SELF [200] Allergies As of Date: 04/23/2018 Noted Allergy Reaction DUST 12/26/2006 NABUMETONE 10/04/2014 8 - GI Upset SEASONAL ALLERGIES 06/19/2015 14 - Other: See Comments SMOKE 12/26/2006 THIMERISOL (THIMEROSAL) 01/09/2016 5 - Intolerance Date Reviewed: 04/23/2018 Reviewed by: Aakash Burton LPN - Fully Assessed Reason for Visit: Recheck [92] Cmt: URI symptoms not improving Primary Visit Diagnosis:Sinusitis, unspecified chronicity, unspecified location [J32.9] Other Visit Diagnosis:Obesity, Class II, BMI 35-39.9 [E66.9] Order(s):predniSONE (DELTASONE) 10 mg tabletTake 40 mg x 3 days, 20 mg x 3 days, 10 mg x 3 days. Take with food, once dailyDisp: 21 tabletRfl: 0 Phentermine HCl (ADIPEX-P) 37.5 mg tabletTake 1 tablet by mouth once daily for 30 days. BMI 39Disp: 30 tabletRfl: 0 Prescriptions as of 04/23/2018 Sig: LINZESS 290 MCG CAPSULE TAKE ONE CAPSULE BY MOUTH ONC* PHENTERMINE 37.5 MG TABLET Take 1 tablet by mouth once d* FLUTICASONE 50 MCG/ACTUATION * Use 2 Sprays in each nostril * ADVAIR DISKUS 250 MCG-50 MCG/* INHALE ONE DOSE BY MOUTH TWIC* COMPOUNDED PRESCRIPTION Aqua Therapy DX: E66.01; M5* COMPOUNDED PRESCRIPTION Consult pulmonary rehab CONJUGATED ESTROGENS 0.9 MG T* Take 1 tablet by mouth once d* PREGABALIN 100 MG CAPSULE Take 100 mg by mouth three ti* BUPROPION HCL SR 150 MG TABLE* Take 1 tablet by mouth twice * MECLIZINE 12.5 MG TABLET Take 1-2 tablets by mouth twi* ALBUTEROL SULFATE HFA 90 MCG/* Inhale 2 Puffs as instructed * FLUOXETINE 40 MG CAPSULE Take 1 capsule by mouth once * MIRABEGRON ER 25 MG TABLET,EX* Take 1 tablet by mouth once d* ALBUTEROL SULFATE 2.5 MG/3 ML* Use 3 mL via nebulizer every * DICLOFENAC SODIUM 75 MG TABLE* Take 1 tablet by mouth twice * DICLOFENAC 1 % TOPICAL GEL Apply to affected area four * BACLOFEN 10 MG TABLET Take 1 tablet by mouth twice * Patient taking differently: Take 10 mg by mouth three justino* TRANSCUTANEOUS ELECTRICAL NER* 1 Device as needed. COMPOUNDED PRESCRIPTION Order: cock up splints (2) D* CHOLECALCIFEROL (VITAMIN D3) * Take 5,000 Units by mouth onc* CYANOCOBALAMIN (VIT B-12) 1,0* Take 1,000 mcg by mouth once * DOCUSATE SODIUM 250 MG CAPSULE Take 250 mg by mouth once sudhakar* PREDNISONE 10 MG TABLET Take 40 mg x 3 days, 20 mg x * CEFDINIR 300 MG CAPSULE Take 1 capsule by mouth every* Problem List As Of Date 04/23/2018 Noted Resolved Migraine without aura [346.1] INVALID FOR*07/28/2017 Dysthymia [F34.1] INVALID FOR* Perimenopausal [N95.1] INVALID FOR*07/28/2017 Breast hypertrophy [N62] INVALID FOR* Bloating [R14.0] Constipation [K59.00] Adnexal mass [N94.9] INVALID FOR*10/31/2016 Flatulence, eructation, and gas pain [R14.3, R1*INVALID FOR*01/26/2015 Unspecified constipation [K59.00] INVALID FOR*01/26/2015 Midline low back pain without sciatica [M54.5] INVALID FOR* Intervertebral disc disorder with radiculopathy*INVALID FOR* DDD (degenerative disc disease), lumbar [M51.36]INVALID FOR* Cervical disc disorder with radiculopathy [M50.*INVALID FOR* DDD (degenerative disc disease), cervical [M50.*INVALID FOR* Carpal tunnel syndrome, bilateral [G56.03] INVALID FOR*07/28/2017 Asthma [J45.909] INVALID FOR*01/20/2018 OLGA (obstructive sleep apnea) [G47.33] INVALID FOR* More... Psoriasis [L40.9] INVALID FOR* OAB (overactive bladder) [N32.81] INVALID FOR* Impaired fasting glucose [R73.01] INVALID FOR* Exercise-induced asthma [J45.990] INVALID FOR* Obesity, Class III, BMI 40-49.9 (morbid obesity*INVALID FOR* Irritable bowel syndrome with constipation [K58*INVALID FOR* ANDREW (generalized anxiety disorder) [F41.1] INVALID FOR* Neck mass [R22.1] INVALID FOR* Prescriptions ordered this encounter Disp Refills Start End PREDNISONE 10 MG TABLET 21 t* 0 04/23/2018 Sig: Take 40 mg x 3 days, 20 mg x 3 days, 10 mg x 3 days. Take with food, once daily PHENTERMINE 37.5 MG TABLET 30 t* 0 04/23/2018 05/23/2018 Class: Print RX Route: ORAL Sig: Take 1 tablet by mouth once daily for 30 days. BMI 39 Medications Discontinued During This Encounter Phentermine HCl (ADIPEX-P) 37.5 mg t* 30 t* 0 03/24/2018 04/23/2018 Class: Print RX Route: ORAL Sig: Take 1 tablet by mouth once daily for 30 days. BMI 39 Disc: Reason for discontinue is not on file. Encounter Status:Closed by KAY VILLALOBOS CNP on 04/23/18 DOWNTIME REPORT Observed: 04/23/2018 Status: F Source: [place] 11:48 AM [facility] REPOSITORY [facility] Medical Records Department [address] [place] [id number] Downtime Report MR#: [id number] Acct: [id number] Name: GAY COLEMAN Rep #: [id number] : 1965 52 From: Lloyd Astudillo PCP: Everton Cash DO Status: REG RCR This patient was seen during an EMR downtime April 06, 2018 - April 13, 2018. This patient may have a combination of paper and electronic documentation or all paper documentation. All documentation is viewable within the e-chart portion of [facility] for each patient visit. PROGRESS Observed: 04/22/2018 Status: COMPLETED Source: [place] 7:20 PM [facility] REPOSITORY HNO ID: [id number] Author: Ehsan Sterling Service: (none) Author Type: Psychologist Type: Progress Notes Filed: 05/14/2018 2:51 PM Note Text: [facility] Progress Note Gay Matthew [place] 04/22/2018 [id number] Provider: Ehsan Vasquez PSYD CPT Code: 43001 Psychotherapy 38-52 minutes Time: Approximately 45 minutes was spent in therapy. Parties Present: Patient Patient Presentation/Concerns: Queenie indicated that she has lost 30lbs. She continues to work through self sabotogue of her progress. Discussed specific steps to take to avoid engaging in self sabotoging behavior (ex. have a plan, avoid restaurants that trigger cravings). Continue to work on affect regulation without food. Mental Status: Mood: depressed Affect: mood-congruent Thoughts/Associations:goal directed Suicidal/Homicidal Ideation: None expressed or evidenced Other Observations: Therapy Focus Mood/affect regulation MEDICATIONS: Per medical record: Current Outpatient Prescriptions: fluticasone (FLONASE) 50 mcg/actuation nasal spray Use 2 Sprays in each nostril once daily. Rinse mouth after use. ADVAIR DISKUS 250-50 mcg/dose dsdv INHALE ONE DOSE BY MOUTH TWICE DAILY. *RINSE AND GARGLE MOUTH WITH WATER AFTER USE* COMPOUNDED PRESCRIPTION Aqua Therapy DX: E66.01; M50.30; M51.36 Phentermine HCl (ADIPEX-P) 37.5 mg tablet Take 1 tablet by mouth once daily for 30 days. BMI 39 COMPOUNDED PRESCRIPTION Consult pulmonary rehab estrogens conjugated (PREMARIN) 0.9 mg tablet Take 1 tablet by mouth once daily. pregabalin (LYRICA) 100 mg capsule Take 100 mg by mouth three times daily. buPROPion SR (ZYBAN SR; WELLBUTRIN SR) 150 mg 12 hr tablet Take 1 tablet by mouth twice daily. meclizine (ANTIVERT) 12.5 mg tab Take 1-2 tablets by mouth twice daily as needed (dizziness). albuterol HFA (VENTOLIN HFA) 90 mcg/actuation inhaler Inhale 2 Puffs as instructed every 4 hours as needed for Wheezing/Shortness of Breath. FLUoxetine HCl (PROZAC) 40 mg capsule Take 1 capsule by mouth once daily. linaclotide (LINZESS) 290 mcg cap Take 1 capsule by mouth once daily. mirabegron (MYRBETRIQ) 25 mg Tb24 Take 1 tablet by mouth once daily. albuterol (PROVENTIL) 2.5 mg /3 mL (0.083 %) nebulizer solution Use 3 mL via nebulizer every 4 hours as needed for Wheezing/Shortness of Breath. Use over 5-15minutes. diclofenac, EC, (VOLTAREN) 75 mg EC tablet Take 1 tablet by mouth twice daily. For pain/inflammation. Take with food. PER DR. MALONE diclofenac sodium (VOLTAREN) 1 % topical gel Apply to affected area four times daily. PER DR. MALONE baclofen (LIORESAL) 10 mg tablet Take 1 tablet by mouth twice daily. (Patient taking differently: Take 10 mg by mouth three times daily.) TENS Units malika 1 Device as needed. COMPOUNDED PRESCRIPTION Order: cock up splints (2)Dx: carpal tunnel syndrome bilateral Cholecalciferol, Vitamin D3, 5,000 unit tab Take 5,000 Units by mouth once daily. cyanocobalamin (VITAMIN B-12) 1,000 mcg tab Take 1,000 mcg by mouth once daily. Docusate Sodium 250 mg capsule Take 250 mg by mouth once daily. No current facility-administered medications for this visit. Psychiatric Medication Issues: No change from previous appointment DIAGNOSIS: Depression Binge Eating Disorder Treatment Modality/Interventions: Cognitive Behavioral TREATMENT ASSESSMENT/PROGRESS: Stable TREATMENT PLAN/GOALS: Continue in therapy focusing on affect management, mindful eating skills Next appointment: 2 weeks Ehsan Vasquez PSYD PROGRESS Observed: 04/15/2018 Status: COMPLETED Source: [place] 10:53 AM [facility] REPOSITORY HNO ID: [id number] Author: Ehsan Sterling Service: (none) Author Type: Psychologist Type: Progress Notes Filed: 04/15/2018 10:58 AM Note Text: [facility] Progress Note Gay Coleman 04/15/2018 [id number] Provider: Ehsan Vasquez PSYD CPT Code: 61337 Psychotherapy 38-52 minutes Time: Approximately 45 minutes was spent in therapy. Parties Present: Patient Patient Presentation/Concerns: Queenie was very sick today, coughing and blowing her nose. She stated feeling more depressed and vulnerable to feelings of rejection when ill. Also, she noted some self sabotage with her eating habits. She did make some steps forward in taking home half of her meal at a restaurant. We spoke about body language and feeling confident. She states wanting to let go of the past. Mental Status: Mood: neutral Affect: mood-congruent Thoughts/Associations:goal directed Suicidal/Homicidal Ideation: None expressed or evidenced Other Observations: None Therapy Focus Mood/affect regulation MEDICATIONS: Per medical record: Current Outpatient Prescriptions: fluticasone (FLONASE) 50 mcg/actuation nasal spray Use 2 Sprays in each nostril once daily. Rinse mouth after use. ADVAIR DISKUS 250-50 mcg/dose dsdv INHALE ONE DOSE BY MOUTH TWICE DAILY. *RINSE AND GARGLE MOUTH WITH WATER AFTER USE* COMPOUNDED PRESCRIPTION Aqua Therapy DX: E66.01; M50.30; M51.36 Phentermine HCl (ADIPEX-P) 37.5 mg tablet Take 1 tablet by mouth once daily for 30 days. BMI 39 COMPOUNDED PRESCRIPTION Consult pulmonary rehab estrogens conjugated (PREMARIN) 0.9 mg tablet Take 1 tablet by mouth once daily. pregabalin (LYRICA) 100 mg capsule Take 100 mg by mouth three times daily. buPROPion SR (ZYBAN SR; WELLBUTRIN SR) 150 mg 12 hr tablet Take 1 tablet by mouth twice daily. meclizine (ANTIVERT) 12.5 mg tab Take 1-2 tablets by mouth twice daily as needed (dizziness). albuterol HFA (VENTOLIN HFA) 90 mcg/actuation inhaler Inhale 2 Puffs as instructed every 4 hours as needed for Wheezing/Shortness of Breath. FLUoxetine HCl (PROZAC) 40 mg capsule Take 1 capsule by mouth once daily. linaclotide (LINZESS) 290 mcg cap Take 1 capsule by mouth once daily. mirabegron (MYRBETRIQ) 25 mg Tb24 Take 1 tablet by mouth once daily. albuterol (PROVENTIL) 2.5 mg /3 mL (0.083 %) nebulizer solution Use 3 mL via nebulizer every 4 hours as needed for Wheezing/Shortness of Breath. Use over 5-15minutes. diclofenac, EC, (VOLTAREN) 75 mg EC tablet Take 1 tablet by mouth twice daily. For pain/inflammation. Take with food. PER DR. MALONE diclofenac sodium (VOLTAREN) 1 % topical gel Apply to affected area four times daily. PER DR. MALONE baclofen (LIORESAL) 10 mg tablet Take 1 tablet by mouth twice daily. (Patient taking differently: Take 10 mg by mouth three times daily.) TENS Units malika 1 Device as needed. COMPOUNDED PRESCRIPTION Order: cock up splints (2)Dx: carpal tunnel syndrome bilateral Cholecalciferol, Vitamin D3, 5,000 unit tab Take 5,000 Units by mouth once daily. cyanocobalamin (VITAMIN B-12) 1,000 mcg tab Take 1,000 mcg by mouth once daily. Docusate Sodium 250 mg capsule Take 250 mg by mouth once daily. No current facility-administered medications for this visit. Psychiatric Medication Issues: No change from previous appointment DIAGNOSIS: Depression, recurrent Treatment Modality/Interventions: Cognitive Behavioral TREATMENT ASSESSMENT/PROGRESS: Stable, reports feeling more depressed because she is ill TREATMENT PLAN/GOALS: Continue in therapy focusing on affect management, self-care, stress management, mindful eating. She agree to do an exercise on confidence related to being mindful of her body language/smiling. Next appointment: 2 weeks Ehsan Vasquez PSYD PROGRESS Observed: 04/13/2018 Status: COMPLETED Source: [place] 3:09 PM [facility] [place] REPOSITORY [facility] ID: [id number] Author: Kassidy (Pt) Curtis Service: (none) Author Type: Physical Therapist Type: Progress Notes Filed: 04/13/2018 5:42 PM Note Text: Episode Visit Count: 5 Therapist That Will Oversee The Plan Of Care: Kassidy Acevedo Start of Care Date: 03/03/18 Onset Date: 03/03/14 REHABILITATION AND SPORTS THERAPY PHYSICAL THERAPY DISCONTINUANCE OF CARE PLAN OF CARE UPDATE: Assessment: Gay Lovinghoracio is discontinued from Physical Therapy services due to maximal benefit.. Patient was seen for 5 visits from Start of Care Date: 03/03/18 to 04/13/2018 and treatment included: Therapeutic exercise, Self-assisted management and Patient/Family/Caregiver Education. Pt exhibits knowledge and confidence with exs and should continue to benefit from performance of home program. No changes have been noted in regards to pain levels but pt should benefit from performance of exs for longer period of time. She is also involved in an aquatic ex program which should be beneficial Goals for Episode of Care: created on 03/03/18 through 04/04/18 Independent in home exercises./ achieved Patient will decrease pain rating by 2 points to meet minimal clinical important difference for numeric pain rating scale./ partially achieved Stand / Walk longer periods without pain/symptoms./ not achieved Patient will be able to tolerate functional activities for 30 minutes without increased symptoms./ not achieved Improve Modified Oswestry Pain Questionnaire (LBP) by 6 points (12%) to indicate a Minimal Clinical Important Difference./ not achieved SUBJECTIVE: Pt notes that she has been working on exs. Pt notes that she is able to do the exs with no change of pain Pt notes that she is starting one on one exs in the pool at [facility] . Pain Score: 9/10 Pain Location: Neck (8/10 in low back left greater than right) Description: Aching;Burning Frequency: Continuous OBJECTIVE MEASURES WITH LEVEL OF FUNCTION: Posture / Alignment Posture: Forward head;Rounded shoulders;Increased lumbar lordosis Spine Palpation R Cervical Spine Palpation Tenderness: Upper trapezius L Cervical Spine Palpation Tenderness: Upper trapezius R Lumbar Spine Palpation Tenderness: Paraspinals L Lumbar Spine Palpation Tenderness: Paraspinals Lumbar Spine AROM Lumbar Flexion: Normal Lumbar Extension: Moderate limitation Lumbar R Side-Bend: Moderate limitation Lumbar L Side-Bend: Moderate limitation Repeated Test Movements - Lumbar SAMUEL - Symptoms During: increases RFIL - Symptoms During: decreases Cervical Spine AROM Cervical Flexion (degrees)?: 45 Degrees Cervical Extension (degrees)?: 45 Degrees Cervical Side-Bend Right (degrees): 30 Degrees Cervical Side-Bend Left (degrees)?: 30 Degrees Cervical Rotation Right (degrees)?: 70 Degrees Cervical Rotation Left (degrees)?: 45 Repeated Test Movements - Cervical Repeated Test Movements - Cervical: ( pain end range all movements) UE AROM R Shoulder Flex: 150 Degrees L Shoulder Flex: 150 Degrees TREATMENT: Therapeutic Exercise: 1: isometric cervical extension 5 sec hold x3 B UE 2: isometric cervical LF 5 sec hold x3 B UE 3: cervical retraction 1x10 4: orange rep band scapular retraction 2x10 5: cervical ROM ROM x3 B with 10 sec hold 6: bridges with arm support 3x15 7: purple rep band trunk flexion 2x15 8: standing iso abs with alternate shld extension with orange rep band 3x15 9: blue rep band hip abduction seated 3x15 10: sit to stand from high chair 1x10 11: iso abs with marches seated 3x15 Skilled Intervention: Patient was educated in proper exercise technique and purpose for exercises. Skilled judgment was provided in selection of appropriate interventions. Provided written instruction for home exercise program to facilitate proper performance and compliance. Correct performance of therapeutic exercises was facilitated with verbal and visual cuing. Billing: [facility]: Therapeutic Exercise (33880): 1:1 time: 30 minutes (2 units: 23-37 mins) Total time: 30 minutes Kassidy Acevedo, PT PROGRESS Observed: 04/13/2018 Status: COMPLETED Source: [place] 2:52 PM [facility] RE[facility]IT[facility] HNO ID: [id number] Author: Kay Maravilla (Therapeutic Massage Technician) Griselda Service: (none) Author Type: Nurse Practitioner Type: Progress Notes Filed: 04/13/2018 3:02 PM Note Text: HPI/CC: Gay Coleman is a 52 year old female who presents for MRI order for back/neck pain. Continues with chronic back pain. Continues PT- 3 visits 03/06/18, 03/18/18 and 04/07/18- has visit today. Scheduled for water Pt next week. Previously participated in PT 06/2016-10/2016 and 07/2015-09/2015. Seen by outside chiropractor. Evaluated by pain management and previously seen by spine center. Previous MRI completed 10/16/2016 and XR cervical spine 2015. New spine consult requires updated MRI prior to OV. Reports continued weakness in bilateral LE with new right UE weakness. Also reports sinus pressure x 4 days with green nasal drainage. Attempted Netti pot. Denies fever, chills. ROS as above, otherwise non-contributory. Reviewed PMHx, PSHx, social Hx, medications and allergies. PHYSICAL EXAMINATION: BP 136/84 Pulse 80 Resp 16 Wt 109.3 kg (241 lb) LMP 03/02/2015 BMI 37.75 kg/m? General appearance: Well appearing, alert, in no acute distress, well-hydrated, well nourished., Obese Skin: Skin color, texture, turgor normal, no suspicious rashes or lesions Head: Normocephalic, no masses, lesions, tenderness or abnormalities Eyes: Anicteric sclera. Pupils are equally round and reactive to light. Extraocular movements are intact. Nose/Sinuses: Nares normal, septum midline, mucosa normal, no drainage or sinus tenderness, Positive findings: mucosa erythematous and swollen Oropharynx: Lips, mucosa, and tongue normal, teeth and gums normal, oropharynx normal Neck: Supple, no adenopathy; thyroid symmetric, normal size, no bruits Back: positive findings: pain to palpation throughout spine and paraspinal Lungs: Lungs clear to auscultation. No wheezing, rhonchi, rales Heart: RRR without murmur, gallop, or rubs. No ectopy Musculoskeletal: No joint swelling, deformity, or tenderness Peripheral pulses: Normal Neuro: Gait normal. Reflexes normal and symmetric. Sensation grossly intact. ASSESSMENT/PLAN: 1. Intervertebral disc disorder with radiculopathy of lumbar region - ICD9: 724.4, ICD10: M51.16 (primary diagnosis) - continue PT, water Pt and pain management - follow with spine - CONSULT TO SPINE CENTER - MRI CERVICAL SPINE WO/W IVCON - IV CONTRAST (RADIOLOGY PROCEDURE) - MRI THORACIC SPINE WO IVCON 2. DDD (degenerative disc disease), lumbar - ICD9: 722.52, ICD10: M51.36 - as above - CONSULT TO SPINE CENTER - MRI CERVICAL SPINE WO/W IVCON - IV CONTRAST (RADIOLOGY PROCEDURE) - MRI THORACIC SPINE WO IVCON 3. Cervical disc disorder with radiculopathy - ICD9: 723.4, ICD10: M50.10 - CONSULT TO SPINE CENTER - MRI CERVICAL SPINE WO/W IVCON - IV CONTRAST (RADIOLOGY PROCEDURE) - MRI THORACIC SPINE WO IVCON 4. DDD (degenerative disc disease), cervical - ICD9: 722.4, ICD10: M50.30 -as above - CONSULT TO SPINE CENTER - MRI CERVICAL SPINE WO/W IVCON - IV CONTRAST (RADIOLOGY PROCEDURE) - MRI THORACIC SPINE WO IVCON 5. Dorsalgia - ICD9: 724.5, ICD10: M54.9 - MRI CERVICAL SPINE WO/W IVCON - MRI THORACIC SPINE WO IVCON 6. Nasal congestion - ICD9: 478.19, ICD10: R09.81 - flonase - f/u PRN in 1-2 weeks if not better Kay Villalobos APRN.FINISHER CARD TENDER CNTHERAPY Observed: 04/13/2018 Status: COMPLETED Source: [place] 2:45 PM [facility] REPOSITORY OT/PT/Speech Visit (PTWS) GAY COLEMAN ([id number]) 1965 F Date Time Provider Department 04/13/18 2:45 PM KASSIDY ACEVEDO (PT) PTWS Date Time Provider Department Center 04/13/2018 2:45 PM [id number], LISA (PT) PTWS [facility] JOELL[facility] Reason for Visit: PT Discharge [752] Primary Visit Diagnosis: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] Other Visit Diagnosis:Cervical disc disorder with radiculopathy [M50.10] Allergies As of Date: 04/13/2018 Noted Allergy Reaction DUST 12/26/2006 NABUMETONE 10/04/2014 8 - GI Upset SEASONAL ALLERGIES 06/19/2015 14 - Other: See Comments SMOKE 12/26/2006 THIMERISOL (THIMEROSAL) 01/09/2016 5 - Intolerance Date Reviewed: 04/13/2018 Reviewed by: Aakash Burton LPN - Fully Assessed Prescriptions as of 04/13/2018 Sig: FLUTICASONE 50 MCG/ACTUATION * Use 2 Sprays in each nostril * IV CONTRAST (RADIOLOGY PROCED* MRI CSP Inject, intravenousl* ADVAIR DISKUS 250 MCG-50 MCG/* INHALE ONE DOSE BY MOUTH TWIC* COMPOUNDED PRESCRIPTION Aqua Therapy DX: E66.01; M5* PHENTERMINE 37.5 MG TABLET Take 1 tablet by mouth once d* COMPOUNDED PRESCRIPTION Consult pulmonary rehab CONJUGATED ESTROGENS 0.9 MG T* Take 1 tablet by mouth once d* PREGABALIN 100 MG CAPSULE Take 100 mg by mouth three ti* BUPROPION HCL SR 150 MG TABLE* Take 1 tablet by mouth twice * MECLIZINE 12.5 MG TABLET Take 1-2 tablets by mouth twi* ALBUTEROL SULFATE HFA 90 MCG/* Inhale 2 Puffs as instructed * FLUOXETINE 40 MG CAPSULE Take 1 capsule by mouth once * LINACLOTIDE 290 MCG CAPSULE Take 1 capsule by mouth once * MIRABEGRON ER 25 MG TABLET,EX* Take 1 tablet by mouth once d* ALBUTEROL SULFATE 2.5 MG/3 ML* Use 3 mL via nebulizer every * DICLOFENAC SODIUM 75 MG TABLE* Take 1 tablet by mouth twice * DICLOFENAC 1 % TOPICAL GEL Apply to affected area four * BACLOFEN 10 MG TABLET Take 1 tablet by mouth twice * Patient taking differently: Take 10 mg by mouth three justino* TRANSCUTANEOUS ELECTRICAL NER* 1 Device as needed. COMPOUNDED PRESCRIPTION Order: cock up splints (2) D* CHOLECALCIFEROL (VITAMIN D3) * Take 5,000 Units by mouth onc* CYANOCOBALAMIN (VIT B-12) 1,0* Take 1,000 mcg by mouth once * DOCUSATE SODIUM 250 MG CAPSULE Take 250 mg by mouth once sudhakar* Progress Notes: Kassidy Acevedo, PT 04/13/2018 5:42 PM Signed Episode Visit Count: 5 Therapist That Will Oversee The Plan Of Care: Kassidy Acevedo Start of Care Date: 03/03/18 Onset Date: 03/03/14 REHABILITATION AND SPORTS THERAPY PHYSICAL THERAPY DISCONTINUANCE OF CARE PLAN OF CARE UPDATE: Assessment: Gay Coleman is discontinued from Physical Therapy services due to maximal benefit.. Patient was seen for 5 visits from Start of Care Date: 03/03/18 to 04/13/2018 and treatment included: Therapeutic exercise, Self-assisted management and Patient/Family/Caregiver Education. Pt exhibits knowledge and confidence with exs and should continue to benefit from performance of home program. No changes have been noted in regards to pain levels but pt should benefit from performance of exs for longer period of time. She is also involved in an aquatic ex program which should be beneficial Goals for Episode of Care: created on 03/03/18 through 04/04/18 Independent in home exercises./ achieved Patient will decrease pain rating by 2 points to meet minimal clinical important difference for numeric pain rating scale./ partially achieved Stand / Walk longer periods without pain/symptoms./ not achieved Patient will be able to tolerate functional activities for 30 minutes without increased symptoms./ not achieved Improve Modified Oswestry Pain Questionnaire (LBP) by 6 points (12%) to indicate a Minimal Clinical Important Difference./ not achieved SUBJECTIVE: Pt notes that she has been working on exs. Pt notes that she is able to do the exs with no change of pain Pt notes that she is starting one on one exs in the pool at [facility] . Pain Score: 9/10 Pain Location: Neck (8/10 in low back left greater than right) Description: Aching;Burning Frequency: Continuous OBJECTIVE MEASURES WITH LEVEL OF FUNCTION: Posture / Alignment Posture: Forward head;Rounded shoulders;Increased lumbar lordosis Spine Palpation R Cervical Spine Palpation Tenderness: Upper trapezius L Cervical Spine Palpation Tenderness: Upper trapezius R Lumbar Spine Palpation Tenderness: Paraspinals L Lumbar Spine Palpation Tenderness: Paraspinals Lumbar Spine AROM Lumbar Flexion: Normal Lumbar Extension: Moderate limitation Lumbar R Side-Bend: Moderate limitation Lumbar L Side-Bend: Moderate limitation Repeated Test Movements - Lumbar SAMEUL - Symptoms During: increases RFIL - Symptoms During: decreases Cervical Spine AROM Cervical Flexion (degrees)?: 45 Degrees Cervical Extension (degrees)?: 45 Degrees Cervical Side-Bend Right (degrees): 30 Degrees Cervical Side-Bend Left (degrees)?: 30 Degrees Cervical Rotation Right (degrees)?: 70 Degrees Cervical Rotation Left (degrees)?: 45 Repeated Test Movements - Cervical Repeated Test Movements - Cervical: ( pain end range all movements) UE AROM R Shoulder Flex: 150 Degrees L Shoulder Flex: 150 Degrees TREATMENT: Therapeutic Exercise: 1: isometric cervical extension 5 sec hold x3 B UE 2: isometric cervical LF 5 sec hold x3 B UE 3: cervical retraction 1x10 4: orange rep band scapular retraction 2x10 5: cervical ROM ROM x3 B with 10 sec hold 6: bridges with arm support 3x15 7: purple rep band trunk flexion 2x15 8: standing iso abs with alternate shld extension with orange rep band 3x15 9: blue rep band hip abduction seated 3x15 10: sit to stand from high chair 1x10 11: iso abs with marches seated 3x15 Skilled Intervention: Patient was educated in proper exercise technique and purpose for exercises. Skilled judgment was provided in selection of appropriate interventions. Provided written instruction for home exercise program to facilitate proper performance and compliance. Correct performance of therapeutic exercises was facilitated with verbal and visual cuing. Billing: [facility]: Therapeutic Exercise ([id number]): 1:1 time: 30 minutes (2 units: 23-37 mins) Total time: 30 minutes Kassidy Acevedo PT JJ Observed: 04/13/2018 Status: COMPLETED Source: [place] 2:00 PM [facility] REPOSITORY Office Visit (FAMPWS) GAY COLEMAN ([id number]) 1965 F Date Time Provider Department 04/13/18 2:00 PM KAY VILLALOBOS (ZANA) KUNAL During your visit today, we recorded the following information about you: Pulse Respiration Blood pressure Weight 80/minute 16/minute 136/84 109.3 kg Kay Villalobos APRN.CNP 04/13/2018 3:02 PM Signed HPI/CC: Gay Coleman is a 52 year old female who presents for MRI order for back/neck pain. Continues with chronic back pain. Continues PT- 3 visits 03/06/18, 03/18/18 and 04/07/18- has visit today. Scheduled for water Pt next week. Previously participated in PT 06/2016-10/2016 and 07/2015-09/2015. Seen by outside chiropractor. Evaluated by pain management and previously seen by spine center. Previous MRI completed 10/16/2016 and XR cervical spine 2015. New spine consult requires updated MRI prior to OV. Reports continued weakness in bilateral LE with new right UE weakness. Also reports sinus pressure x 4 days with green nasal drainage. Attempted Netti pot. Denies fever, chills. ROS as above, otherwise non-contributory. Reviewed PMHx, PSHx, social Hx, medications and allergies. PHYSICAL EXAMINATION: BP 136/84 Pulse 80 Resp 16 Wt 109.3 kg (241 lb) LMP 03/02/2015 BMI 37.75 kg/m? General appearance: Well appearing, alert, in no acute distress, well-hydrated, well nourished., Obese Skin: Skin color, texture, turgor normal, no suspicious rashes or lesions Head: Normocephalic, no masses, lesions, tenderness or abnormalities Eyes: Anicteric sclera. Pupils are equally round and reactive to light. Extraocular movements are intact. Nose/Sinuses: Nares normal, septum midline, mucosa normal, no drainage or sinus tenderness, Positive findings: mucosa erythematous and swollen Oropharynx: Lips, mucosa, and tongue normal, teeth and gums normal, oropharynx normal Neck: Supple, no adenopathy; thyroid symmetric, normal size, no bruits Back: positive findings: pain to palpation throughout spine and paraspinal Lungs: Lungs clear to auscultation. No wheezing, rhonchi, rales Heart: RRR without murmur, gallop, or rubs. No ectopy Musculoskeletal: No joint swelling, deformity, or tenderness Peripheral pulses: Normal Neuro: Gait normal. Reflexes normal and symmetric. Sensation grossly intact. ASSESSMENT/PLAN: 1. Intervertebral disc disorder with radiculopathy of lumbar region - ICD9: 724.4, ICD10: M51.16 (primary diagnosis) - continue PT, water Pt and pain management - follow with spine - CONSULT TO SPINE CENTER - MRI CERVICAL SPINE WO/W IVCON - IV CONTRAST (RADIOLOGY PROCEDURE) - MRI THORACIC SPINE WO IVCON 2. DDD (degenerative disc disease), lumbar - ICD9: 722.52, ICD10: M51.36 - as above - CONSULT TO SPINE CENTER - MRI CERVICAL SPINE WO/W IVCON - IV CONTRAST (RADIOLOGY PROCEDURE) - MRI THORACIC SPINE WO IVCON 3. Cervical disc disorder with radiculopathy - ICD9: 723.4, ICD10: M50.10 - CONSULT TO SPINE CENTER - MRI CERVICAL SPINE WO/W IVCON - IV CONTRAST (RADIOLOGY PROCEDURE) - MRI THORACIC SPINE WO IVCON 4. DDD (degenerative disc disease), cervical - ICD9: 722.4, ICD10: M50.30 -as above - CONSULT TO SPINE CENTER - MRI CERVICAL SPINE WO/W IVCON - IV CONTRAST (RADIOLOGY PROCEDURE) - MRI THORACIC SPINE WO IVCON 5. Dorsalgia - ICD9: 724.5, ICD10: M54.9 - MRI CERVICAL SPINE WO/W IVCON - MRI THORACIC SPINE WO IVCON 6. Nasal congestion - ICD9: 478.19, ICD10: R09.81 - flonase - f/u PRN in 1-2 weeks if not better Kay Villalobos, CELESTINA.FINISHER CARD TENDER Referring Provider: SELF [200] Allergies As of Date: 04/13/2018 Noted Allergy Reaction DUST 12/26/2006 NABUMETONE 10/04/2014 8 - GI Upset SEASONAL ALLERGIES 06/19/2015 14 - Other: See Comments SMOKE 12/26/2006 THIMERISOL (THIMEROSAL) 01/09/2016 5 - Intolerance Date Reviewed: 04/13/2018 Reviewed by: Aakash Burton LPN - Fully Assessed Reason for Visit: Orders [681] Cmt: MRI for back/neck pain Primary Visit Diagnosis: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] Other Visit Diagnoses:DDD (degenerative disc disease), lumbar [M51.36] Cervical disc disorder with radiculopathy [M50.10] DDD (degenerative disc disease), cervical [M50.30] Dorsalgia [M54.9] Nasal congestion [R09.81] Order(s):fluticasone (FLONASE) 50 mcg/actuation nasal sprayUse 2 Sprays in each nostril once daily. Rinse mouth after use.Disp: 1 BottleRfl: 11 CONSULT TO SPINE CENTER [[id number]] Order #: [id number]: 1 MRI CERVICAL SPINE WO/W IVCON [[id number]] Order #: [id number] FUTURE iv contrast (will be provided with radiology test)MRI CSP Inject, intravenously, once for 1 dose. No IV access, insert saline lock prior to the beginning of sedation, infusion, injection of imaging exam. Discontinue saline lock post exam. If Pt. has a central line or IVAD, may access for administration according to line specific nursing protocol. Once exam is complete flush line and de- access according to line specific nursing protocol in the MR contrast administration guidelines link.Disp: 1 EachRfl: 0 MRI THORACIC SPINE WO IVCON [[id number]] Order #: [id number] FUTURE Prescriptions as of 04/13/2018 Sig: ADVAIR DISKUS 250 MCG-50 MCG/* INHALE ONE DOSE BY MOUTH TWIC* COMPOUNDED PRESCRIPTION Aqua Therapy DX: E66.01; M5* PHENTERMINE 37.5 MG TABLET Take 1 tablet by mouth once d* COMPOUNDED PRESCRIPTION Consult pulmonary rehab CONJUGATED ESTROGENS 0.9 MG T* Take 1 tablet by mouth once d* PREGABALIN 100 MG CAPSULE Take 100 mg by mouth three ti* BUPROPION HCL SR 150 MG TABLE* Take 1 tablet by mouth twice * MECLIZINE 12.5 MG TABLET Take 1-2 tablets by mouth twi* ALBUTEROL SULFATE HFA 90 MCG/* Inhale 2 Puffs as instructed * FLUOXETINE 40 MG CAPSULE Take 1 capsule by mouth once * LINACLOTIDE 290 MCG CAPSULE Take 1 capsule by mouth once * MIRABEGRON ER 25 MG TABLET,EX* Take 1 tablet by mouth once d* ALBUTEROL SULFATE 2.5 MG/3 ML* Use 3 mL via nebulizer every * DICLOFENAC SODIUM 75 MG TABLE* Take 1 tablet by mouth twice * DICLOFENAC 1 % TOPICAL GEL Apply to affected area four * BACLOFEN 10 MG TABLET Take 1 tablet by mouth twice * Patient taking differently: Take 10 mg by mouth three justino* TRANSCUTANEOUS ELECTRICAL NER* 1 Device as needed. COMPOUNDED PRESCRIPTION Order: cock up splints (2) D* CHOLECALCIFEROL (VITAMIN D3) * Take 5,000 Units by mouth onc* CYANOCOBALAMIN (VIT B-12) 1,0* Take 1,000 mcg by mouth once * DOCUSATE SODIUM 250 MG CAPSULE Take 250 mg by mouth once sudhakar* FLUTICASONE 50 MCG/ACTUATION * Use 2 Sprays in each nostril * IV CONTRAST (RADIOLOGY PROCED* MRI CSP Inject, intravenousl* Problem List As Of Date 04/13/2018 Noted Resolved Migraine without aura [346.1] INVALID FOR*07/28/2017 Dysthymia [F34.1] INVALID FOR* Perimenopausal [N95.1] INVALID FOR*07/28/2017 Breast hypertrophy [N62] INVALID FOR* Bloating [R14.0] Constipation [K59.00] Adnexal mass [N94.9] INVALID FOR*10/31/2016 Flatulence, eructation, and gas pain [R14.3, R1*INVALID FOR*01/26/2015 Unspecified constipation [K59.00] INVALID FOR*01/26/2015 Midline low back pain without sciatica [M54.5] INVALID FOR* Intervertebral disc disorder with radiculopathy*INVALID FOR* DDD (degenerative disc disease), lumbar [M51.36]INVALID FOR* Cervical disc disorder with radiculopathy [M50.*INVALID FOR* DDD (degenerative disc disease), cervical [M50.*INVALID FOR* Carpal tunnel syndrome, bilateral [G56.03] INVALID FOR*07/28/2017 Asthma [J45.909] INVALID FOR*01/20/2018 OLGA (obstructive sleep apnea) [G47.33] INVALID FOR* More... Psoriasis [L40.9] INVALID FOR* OAB (overactive bladder) [N32.81] INVALID FOR* Impaired fasting glucose [R73.01] INVALID FOR* Exercise-induced asthma [J45.990] INVALID FOR* Obesity, Class III, BMI 40-49.9 (morbid obesity*INVALID FOR* Irritable bowel syndrome with constipation [K58*INVALID FOR* ANDREW (generalized anxiety disorder) [F41.1] INVALID FOR* Neck mass [R22.1] INVALID FOR* Prescriptions ordered this encounter Disp Refills Start End FLUTICASONE 50 MCG/ACTUATION NASAL S* 1 [place]* 11 04/13/2018 Route: EACH NOSTRIL Sig: Use 2 Sprays in each nostril once daily. Rinse mouth after use. IV CONTRAST (RADIOLOGY PROCEDURE) 1 Ea* 0 04/13/2018 04/14/2018 Class: In Office Sig: MRI CSP Inject, intravenously, once for 1 dose. No IV access, insert saline lock prior to the beginning of sedation, infusion, injection of imaging exam. Discontinue saline lock post exam. If Pt. has a central line or IVAD, may access for administration according to line specific nursing protocol. Once exam is complete flush line and de-access according to line specific nursing protocol in the MR contrast administration guidelines link. Medications Discontinued During This Encounter Ustekinumab (STELARA) 90 mg/mL syrg 04/13/2018 Class: Historical Med Route: SUBCUTANEOUS Sig: Inject subcutaneously. Disc: Reason for discontinue is not on file. mirtazapine (REMERON) 30 mg tablet 12/24/2016 04/13/2018 Class: Med Update Route: ORAL Sig: Take 1 tablet by mouth daily at bedtime. Patient taking differently: Take 15 mg by mouth daily at bedtime. 1 1/2 at bedtime Disc: Reason for discontinue is not on file. Cosign accepted by CANELO HILL MD[[id number]] on 12/24/2016 9:04 AM pregabalin (LYRICA) 75 mg capsule 04/13/2018 Class: Historical Med Route: ORAL Sig: Take 75 mg by mouth three times daily. Disc: Reason for discontinue is not on file. ixekizumab (TALTZ AUTOINJECTOR, 2 PA* 04/13/2018 Class: Historical Med Route: SUBCUTANEOUS Sig: Inject subcutaneously. Disc: Reason for discontinue is not on file. diazePAM (VALIUM) 2 mg tablet 04/13/2018 Class: Historical Med Route: ORAL Sig: Take 2 mg by mouth every 6 hours as needed. Disc: Reason for discontinue is not on file. fluconazole (DIFLUCAN) 150 mg tablet 04/13/2018 Class: Historical Med Route: ORAL Sig: Take 150 mg by mouth one time only. Disc: Reason for discontinue is not on file. Encounter Status:Closed by KAY VILLALOBOS CNP on 04/13/18 PROGRESS Observed: 04/09/2018 Status: COMPLETED Source: [place] 9:40 AM [facility] REPOSITORY HNO ID: [id number] Author: Ehsan Sterling Service: (none) Author Type: Psychologist Type: Progress Notes Filed: 04/16/2018 3:05 PM Note Text: [facility] Progress Note Gay K Vriginia 04/08/2018 [id number] Provider: Ehsan Vasquez PSYD CPT Code: 95684 Psychotherapy 38-52 minutes Time: Approximately 45 minutes was spent in therapy. Parties Present: Patient Patient Presentation/Concerns: Queenie discussed issues related to her communication with her . Their communication sometimes triggers feelings of irritation and anger. Discussed their relationship dynamics and how to cope with the differences in their personalities. Mental Status: Mood: depressed Affect: mood-congruent Thoughts/Associations:goal directed Suicidal/Homicidal Ideation: None expressed or evidenced Other Observations: None Therapy Focus Mood/affect regulation MEDICATIONS: Per medical record: Current Outpatient Prescriptions: ADVAIR DISKUS 250-50 mcg/dose dsdv INHALE ONE DOSE BY MOUTH TWICE DAILY. *RINSE AND GARGLE MOUTH WITH WATER AFTER USE* COMPOUNDED PRESCRIPTION Aqua Therapy DX: E66.01; M50.30; M51.36 Phentermine HCl (ADIPEX-P) 37.5 mg tablet Take 1 tablet by mouth once daily for 30 days. BMI 39 COMPOUNDED PRESCRIPTION Consult pulmonary rehab estrogens conjugated (PREMARIN) 0.9 mg tablet Take 1 tablet by mouth once daily. pregabalin (LYRICA) 100 mg capsule Take 100 mg by mouth three times daily. buPROPion SR (ZYBAN SR; WELLBUTRIN SR) 150 mg 12 hr tablet Take 1 tablet by mouth twice daily. meclizine (ANTIVERT) 12.5 mg tab Take 1-2 tablets by mouth twice daily as needed (dizziness). fluconazole (DIFLUCAN) 150 mg tablet Take 150 mg by mouth one time only. diazePAM (VALIUM) 2 mg tablet Take 2 mg by mouth every 6 hours as needed. albuterol HFA (VENTOLIN HFA) 90 mcg/actuation inhaler Inhale 2 Puffs as instructed every 4 hours as needed for Wheezing/Shortness of Breath. FLUoxetine HCl (PROZAC) 40 mg capsule Take 1 capsule by mouth once daily. linaclotide (LINZESS) 290 mcg cap Take 1 capsule by mouth once daily. mirabegron (MYRBETRIQ) 25 mg Tb24 Take 1 tablet by mouth once daily. ixekizumab (TALTZ AUTOINJECTOR, 2 PACK,) 80 mg/mL AutoInjector Inject subcutaneously. albuterol (PROVENTIL) 2.5 mg /3 mL (0.083 %) nebulizer solution Use 3 mL via nebulizer every 4 hours as needed for Wheezing/Shortness of Breath. Use over 5-15minutes. diclofenac, EC, (VOLTAREN) 75 mg EC tablet Take 1 tablet by mouth twice daily. For pain/inflammation. Take with food. PER DR. MALONE diclofenac sodium (VOLTAREN) 1 % topical gel Apply to affected area four times daily. PER DR. MALONE pregabalin (LYRICA) 75 mg capsule Take 75 mg by mouth three times daily. mirtazapine (REMERON) 30 mg tablet Take 1 tablet by mouth daily at bedtime. (Patient taking differently: Take 15 mg by mouth daily at bedtime. 1 1/2 at bedtime ) baclofen (LIORESAL) 10 mg tablet Take 1 tablet by mouth twice daily. (Patient taking differently: Take 10 mg by mouth three times daily.) Ustekinumab (STELARA) 90 mg/mL syrg Inject subcutaneously. TENS Units malika 1 Device as needed. COMPOUNDED PRESCRIPTION Order: cock up splints (2)Dx: carpal tunnel syndrome bilateral Cholecalciferol, Vitamin D3, 5,000 unit tab Take 5,000 Units by mouth once daily. cyanocobalamin (VITAMIN B-12) 1,000 mcg tab Take 1,000 mcg by mouth once daily. Docusate Sodium 250 mg capsule Take 250 mg by mouth once daily. No current facility-administered medications for this visit. Psychiatric Medication Issues: No change from previous appointment DIAGNOSIS: Depression Binge Eating Treatment Modality/Interventions: Cognitive Behavioral TREATMENT ASSESSMENT/PROGRESS: Stable TREATMENT PLAN/GOALS: Continue in therapy focusing on affect management. Next appointment: 2 weeks Ehsan Vasquez PSYD PROGRESS Observed: 04/08/2018 Status: COMPLETED Source: [place] 8:24 AM [facility] REPOSITORY [facility] ID: [id number] Author: Kassidy (Pt) Curtis Service: (none) Author Type: Physical Therapist Type: Progress Notes Filed: 04/08/2018 8:29 AM Note Text: Episode Visit Count: 4 Therapist That Will Oversee The Plan Of Care: Kassidy Acevedo Start of Care Date: 03/03/18 Onset Date: 03/03/14 [facility]AB[facility] SPORTS THERAPY PHYSICAL THERAPY TREATMENT NOTE ASSESSMENT: Gay Coleman demonstrated pain in cervical region which she wished to address today. Continues to perform lumbar exs. Neck pain also chronic and pt with previous therapy to neck with no lasting benefit. Pt demonstrated decreased cervical ROM and generalized pain The patient will benefit from performance of cervical exs on a regular basis in addition to lumbar exs. PLAN FOR NEXT VISIT: Will review exs for cervical and lumbar region and assess for discharge SUBJECTIVE: Pt notes that she had the procedure to have the nerves burned in low back 04/02/2018. Pt reports that she has pain in stiffness in bilateral pain in neck and shoulders wtih limitation of motion. Spine History Symptoms Since Onset: Worsening Pain is Worse Always: Turning;On the Move;Prolonged positions;As the day progresses Sleeping Position: Side lying left Spine History - Cervical Symptoms Since Onset: Worsening Sleeping Position: Side lying left Pain Score: 8/10 Pain Location: Neck - Left;Neck - Right Description: Aching;Burning;Shooting Frequency: Continuous Post Treatment Pain Score: No Change Pain Location: Neck Post Treatment Pain Description: Aching OBJECTIVE MEASURES WITH LEVEL OF FUNCTION: Posture / Alignment Posture: Forward head Cervical Spine AROM Cervical AROM determined by: Measurement Cervical Retraction (cm)?: ( mild limitation) Cervical Flexion (degrees)?: 35 Degrees Cervical Extension (degrees)?: 40 Degrees Cervical Side-Bend Right (degrees): 35 Degrees Cervical Side-Bend Left (degrees)?: 35 Degrees Cervical Rotation Right (degrees)?: 60 Degrees Cervical Rotation Left (degrees)?: 50 UE AROM R Shoulder Flex: 150 Degrees R Shoulder Internal Rotation (Functional): WNL R Shoulder External Rotation (Functional): WNL L Shoulder Flex: 135 Degrees L Shoulder Internal Rotation (Functional): WNL L Shoulder External Rotation (Functional): WNL TREATMENT: Therapeutic Exercise: 1: isometric cervical extension 5 sec hold x3 B UE 2: isometric cervical LF 5 sec hold x3 B UE 3: cervical retraction 1x10 4: orange rep band scapular retraction 2x10 5: cervical ROM ROM x3 B with 10 sec hold Skilled Intervention: Patient was educated in proper exercise technique and purpose for exercises. Skilled judgment was provided in selection of appropriate interventions. Provided written instruction for home exercise program to facilitate proper performance and compliance. Correct performance of therapeutic exercises was facilitated with verbal and visual cuing. Education regarding posture correction Educated patient on rationale for performing exercises in regards to ROM and function Billing: [facility]: Therapeutic Exercise (12799): 1:1 time: 40 minutes (3 units: 38-52 mins) Total time: 40 minutes Kassidy Acevedo PT CNTHERAPY Observed: 04/07/2018 Status: COMPLETED Source: [place] 11:15 AM [facility] REPOSITORY OT/PT/Speech Visit (PTWS) GAY COLEMAN ([id number]) 1965 F Date Time Provider Department 04/07/18 11:15 AM KASSIDY ACEVEDOPT) PTWS Date Time Provider Department Center 04/07/2018 11:15 AM [id number], LISA (PT) PTJORGE [facility] JOELLEN Reason for Visit: Physical Therapy [503] Primary Visit Diagnosis: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] Other Visit Diagnosis:Cervical disc disorder with radiculopathy [M50.10] Allergies As of Date: 04/07/2018 Noted Allergy Reaction DUST 12/26/2006 NABUMETONE 10/04/2014 8 - GI Upset SEASONAL ALLERGIES 06/19/2015 14 - Other: See Comments SMOKE 12/26/2006 THIMERISOL (THIMEROSAL) 01/09/2016 5 - Intolerance Date Reviewed: 03/24/2018 Reviewed by: Aakash Burton LPN - Fully Assessed Prescriptions as of 04/07/2018 Sig: ADVAIR DISKUS 250 MCG-50 MCG/* INHALE ONE DOSE BY MOUTH TWIC* COMPOUNDED PRESCRIPTION Aqua Therapy DX: E66.01; M5* PHENTERMINE 37.5 MG TABLET Take 1 tablet by mouth once d* COMPOUNDED PRESCRIPTION Consult pulmonary rehab CONJUGATED ESTROGENS 0.9 MG T* Take 1 tablet by mouth once d* PREGABALIN 100 MG CAPSULE Take 100 mg by mouth three ti* BUPROPION HCL SR 150 MG TABLE* Take 1 tablet by mouth twice * MECLIZINE 12.5 MG TABLET Take 1-2 tablets by mouth twi* FLUCONAZOLE 150 MG TABLET Take 150 mg by mouth one time* DIAZEPAM 2 MG TABLET Take 2 mg by mouth every 6 ho* ALBUTEROL SULFATE HFA 90 MCG/* Inhale 2 Puffs as instructed * FLUOXETINE 40 MG CAPSULE Take 1 capsule by mouth once * LINACLOTIDE 290 MCG CAPSULE Take 1 capsule by mouth once * MIRABEGRON ER 25 MG TABLET,EX* Take 1 tablet by mouth once d* IXEKIZUMAB 80 MG/ML SUBCUTANE* Inject subcutaneously. ALBUTEROL SULFATE 2.5 MG/3 ML* Use 3 mL via nebulizer every * DICLOFENAC SODIUM 75 MG TABLE* Take 1 tablet by mouth twice * DICLOFENAC 1 % TOPICAL GEL Apply to affected area four * PREGABALIN 75 MG CAPSULE Take 75 mg by mouth three justino* MIRTAZAPINE 30 MG TABLET Take 1 tablet by mouth daily * Patient taking differently: Take 15 mg by mouth daily at * BACLOFEN 10 MG TABLET Take 1 tablet by mouth twice * Patient taking differently: Take 10 mg by mouth three justino* USTEKINUMAB 90 MG/ML SUBCUTAN* Inject subcutaneously. TRANSCUTANEOUS ELECTRICAL NER* 1 Device as needed. COMPOUNDED PRESCRIPTION Order: cock up splints (2) D* CHOLECALCIFEROL (VITAMIN D3) * Take 5,000 Units by mouth onc* CYANOCOBALAMIN (VIT B-12) 1,0* Take 1,000 mcg by mouth once * DOCUSATE SODIUM 250 MG CAPSULE Take 250 mg by mouth once sudhakar* Progress Notes: Kassidy Acevedo, PT 04/08/2018 8:29 AM Signed Episode Visit Count: 4 Therapist That Will Oversee The Plan Of Care: Kassidy Acevedo Start of Care Date: 03/03/18 Onset Date: 03/03/14 REHABILITATION AND SPORTS THERAPY PHYSICAL THERAPY TREATMENT NOTE ASSESSMENT: Gay Coleman demonstrated pain in cervical region which she wished to address today. Continues to perform lumbar exs. Neck pain also chronic and pt with previous therapy to neck with no lasting benefit. Pt demonstrated decreased cervical ROM and generalized pain The patient will benefit from performance of cervical exs on a regular basis in addition to lumbar exs. PLAN FOR NEXT VISIT: Will review exs for cervical and lumbar region and assess for discharge SUBJECTIVE: Pt notes that she had the procedure to have the nerves burned in low back 04/02/2018. Pt reports that she has pain in stiffness in bilateral pain in neck and shoulders wtih limitation of motion. Spine History Symptoms Since Onset: Worsening Pain is Worse Always: Turning;On the Move;Prolonged positions;As the day progresses Sleeping Position: Side lying left Spine History - Cervical Symptoms Since Onset: Worsening Sleeping Position: Side lying left Pain Score: 8/10 Pain Location: Neck - Left;Neck - Right Description: Aching;Burning;Shooting Frequency: Continuous Post Treatment Pain Score: No Change Pain Location: Neck Post Treatment Pain Description: Aching OBJECTIVE MEASURES WITH LEVEL OF FUNCTION: Posture / Alignment Posture: Forward head Cervical Spine AROM Cervical AROM determined by: Measurement Cervical Retraction (cm)?: ( mild limitation) Cervical Flexion (degrees)?: 35 Degrees Cervical Extension (degrees)?: 40 Degrees Cervical Side-Bend Right (degrees): 35 Degrees Cervical Side-Bend Left (degrees)?: 35 Degrees Cervical Rotation Right (degrees)?: 60 Degrees Cervical Rotation Left (degrees)?: 50 UE AROM R Shoulder Flex: 150 Degrees R Shoulder Internal Rotation (Functional): WNL R Shoulder External Rotation (Functional): WNL L Shoulder Flex: 135 Degrees L Shoulder Internal Rotation (Functional): WNL L Shoulder External Rotation (Functional): WNL TREATMENT: Therapeutic Exercise: 1: isometric cervical extension 5 sec hold x3 B UE 2: isometric cervical LF 5 sec hold x3 B UE 3: cervical retraction 1x10 4: orange rep band scapular retraction 2x10 5: cervical ROM ROM x3 B with 10 sec hold Skilled Intervention: Patient was educated in proper exercise technique and purpose for exercises. Skilled judgment was provided in selection of appropriate interventions. Provided written instruction for home exercise program to facilitate proper performance and compliance. Correct performance of therapeutic exercises was facilitated with verbal and visual cuing. Education regarding posture correction Educated patient on rationale for performing exercises in regards to ROM and function Billing: [facility]: Therapeutic Exercise ([id number]): 1:1 time: 40 minutes (3 units: 38-52 mins) Total time: 40 minutes Kassidy Acevedo PT PROGRESS Observed: 04/01/2018 Status: COMPLETED Source: [place] 11:01 AM [facility] REPOSITORY O ID: [id number] Author: Ehsan Sterling Service: (none) Author Type: Psychologist Type: Progress Notes Filed: 04/09/2018 3:15 PM Note Text: [facility] Progress Note Gay Coleman 04/01/2018 [id number] Provider: Ehsan Vasquez PSYD CPT Code: 45443 Psychotherapy 38-52 minutes Time: Approximately 45 minutes was spent in therapy. Parties Present: Patient Patient Presentation/Concerns: Queenie spoke extensively about father's day that is coming up. This triggered many negative feelings about her relationship with her father. Discussed staying in the present. Focusing her love and care on those who do care about her instead of her energy on her father. Focus on her relationship with her . Skills for letting go. Mental Status: Mood: depressed Affect: mood-congruent Thoughts/Associations:goal directed Suicidal/Homicidal Ideation: None expressed or evidenced Other Observations: Therapy Focus Mood/affect regulation MEDICATIONS: Per medical record: Current Outpatient Prescriptions: Phentermine HCl (ADIPEX-P) 37.5 mg tablet Take 1 tablet by mouth once daily for 30 days. BMI 39 COMPOUNDED PRESCRIPTION Consult pulmonary rehab estrogens conjugated (PREMARIN) 0.9 mg tablet Take 1 tablet by mouth once daily. pregabalin (LYRICA) 100 mg capsule Take 100 mg by mouth three times daily. buPROPion SR (ZYBAN SR; WELLBUTRIN SR) 150 mg 12 hr tablet Take 1 tablet by mouth twice daily. meclizine (ANTIVERT) 12.5 mg tab Take 1-2 tablets by mouth twice daily as needed (dizziness). fluconazole (DIFLUCAN) 150 mg tablet Take 150 mg by mouth one time only. diazePAM (VALIUM) 2 mg tablet Take 2 mg by mouth every 6 hours as needed. fluticasone-salmeterol (ADVAIR DISKUS) 250-50 mcg/dose dsdv Inhale 1 Puff as instructed twice daily. Rinse and gargle mouth after use with water. albuterol HFA (VENTOLIN HFA) 90 mcg/actuation inhaler Inhale 2 Puffs as instructed every 4 hours as needed for Wheezing/Shortness of Breath. FLUoxetine HCl (PROZAC) 40 mg capsule Take 1 capsule by mouth once daily. linaclotide (LINZESS) 290 mcg cap Take 1 capsule by mouth once daily. mirabegron (MYRBETRIQ) 25 mg Tb24 Take 1 tablet by mouth once daily. ixekizumab (TALTZ AUTOINJECTOR, 2 PACK,) 80 mg/mL AutoInjector Inject subcutaneously. albuterol (PROVENTIL) 2.5 mg /3 mL (0.083 %) nebulizer solution Use 3 mL via nebulizer every 4 hours as needed for Wheezing/Shortness of Breath. Use over 5-15minutes. diclofenac, EC, (VOLTAREN) 75 mg EC tablet Take 1 tablet by mouth twice daily. For pain/inflammation. Take with food. PER DR. MALONE diclofenac sodium (VOLTAREN) 1 % topical gel Apply to affected area four times daily. PER DR. MALONE pregabalin (LYRICA) 75 mg capsule Take 75 mg by mouth three times daily. mirtazapine (REMERON) 30 mg tablet Take 1 tablet by mouth daily at bedtime. (Patient taking differently: Take 15 mg by mouth daily at bedtime. 1 1/2 at bedtime ) baclofen (LIORESAL) 10 mg tablet Take 1 tablet by mouth twice daily. (Patient taking differently: Take 10 mg by mouth three times daily.) Ustekinumab (STELARA) 90 mg/mL syrg Inject subcutaneously. TENS Units malika 1 Device as needed. COMPOUNDED PRESCRIPTION Order: cock up splints (2)Dx: carpal tunnel syndrome bilateral Cholecalciferol, Vitamin D3, 5,000 unit tab Take 5,000 Units by mouth once daily. cyanocobalamin (VITAMIN B-12) 1,000 mcg tab Take 1,000 mcg by mouth once daily. Docusate Sodium 250 mg capsule Take 250 mg by mouth once daily. No current facility-administered medications for this visit. Psychiatric Medication Issues: No change from previous appointment DIAGNOSIS: Depression, recurrent Binge Eating Treatment Modality/Interventions: Cognitive Behavioral TREATMENT ASSESSMENT/PROGRESS: 1) Affect regulation skills 2) Coping skills 3) Mindful Eating for Binge Eating Stable TREATMENT PLAN/GOALS: Continue in therapy focusing on affect management. Mindful eating skills. Setting appropriate boundaries with family. Next appointment: 2 weeks Ehsan Vasquez PSYD PROGRESS Observed: 03/25/2018 Status: COMPLETED Source: [place] 6:13 PM [facility] [place] REPOSITORY O ID: [id number] Author: Ehsan Sterling Service: (none) Author Type: Psychologist Type: Progress Notes Filed: 04/01/2018 9:16 AM Note Text: [facility] Progress Note Gay K [place] 03/25/2018 [id number] Provider: Ehsan Vasquez PSYD CPT Code: 43979 Psychotherapy 38-52 minutes Time: Approximately 45 minutes was spent in therapy. Parties Present: Patient Patient Presentation/Concerns: Queenie spoke about having some success with her eating. She is down in the 240's. She was able to skip meals, throw away fries, order salads etc. She stated that she did not want to take away from the success. Queenie stated continuing to recover from her recent medical interventions. She stated needing a plan to help to see her self-worth in a different way (not threw the lens of her family). Mental Status: Mood: depressed Affect: mood-congruent Thoughts/Associations:goal directed Suicidal/Homicidal Ideation: None expressed or evidenced Other Observations: Therapy Focus Mood/affect regulation MEDICATIONS: Per medical record: Current Outpatient Prescriptions: Phentermine HCl (ADIPEX-P) 37.5 mg tablet Take 1 tablet by mouth once daily for 30 days. BMI 39 COMPOUNDED PRESCRIPTION Consult pulmonary rehab estrogens conjugated (PREMARIN) 0.9 mg tablet Take 1 tablet by mouth once daily. pregabalin (LYRICA) 100 mg capsule Take 100 mg by mouth three times daily. buPROPion SR (ZYBAN SR; WELLBUTRIN SR) 150 mg 12 hr tablet Take 1 tablet by mouth twice daily. meclizine (ANTIVERT) 12.5 mg tab Take 1-2 tablets by mouth twice daily as needed (dizziness). fluconazole (DIFLUCAN) 150 mg tablet Take 150 mg by mouth one time only. diazePAM (VALIUM) 2 mg tablet Take 2 mg by mouth every 6 hours as needed. fluticasone-salmeterol (ADVAIR DISKUS) 250-50 mcg/dose dsdv Inhale 1 Puff as instructed twice daily. Rinse and gargle mouth after use with water. albuterol HFA (VENTOLIN HFA) 90 mcg/actuation inhaler Inhale 2 Puffs as instructed every 4 hours as needed for Wheezing/Shortness of Breath. FLUoxetine HCl (PROZAC) 40 mg capsule Take 1 capsule by mouth once daily. linaclotide (LINZESS) 290 mcg cap Take 1 capsule by mouth once daily. mirabegron (MYRBETRIQ) 25 mg Tb24 Take 1 tablet by mouth once daily. ixekizumab (TALTZ AUTOINJECTOR, 2 PACK,) 80 mg/mL AutoInjector Inject subcutaneously. albuterol (PROVENTIL) 2.5 mg /3 mL (0.083 %) nebulizer solution Use 3 mL via nebulizer every 4 hours as needed for Wheezing/Shortness of Breath. Use over 5-15minutes. diclofenac, EC, (VOLTAREN) 75 mg EC tablet Take 1 tablet by mouth twice daily. For pain/inflammation. Take with food. PER DR. MALONE diclofenac sodium (VOLTAREN) 1 % topical gel Apply to affected area four times daily. PER DR. MALONE pregabalin (LYRICA) 75 mg capsule Take 75 mg by mouth three times daily. mirtazapine (REMERON) 30 mg tablet Take 1 tablet by mouth daily at bedtime. (Patient taking differently: Take 15 mg by mouth daily at bedtime. 1 1/2 at bedtime ) baclofen (LIORESAL) 10 mg tablet Take 1 tablet by mouth twice daily. (Patient taking differently: Take 10 mg by mouth three times daily.) Ustekinumab (STELARA) 90 mg/mL syrg Inject subcutaneously. TENS Units malika 1 Device as needed. COMPOUNDED PRESCRIPTION Order: cock up splints (2)Dx: carpal tunnel syndrome bilateral Cholecalciferol, Vitamin D3, 5,000 unit tab Take 5,000 Units by mouth once daily. cyanocobalamin (VITAMIN B-12) 1,000 mcg tab Take 1,000 mcg by mouth once daily. Docusate Sodium 250 mg capsule Take 250 mg by mouth once daily. No current facility-administered medications for this visit. Psychiatric Medication Issues: No change from previous appointment DIAGNOSIS: Depression, Binge Eating Treatment Modality/Interventions: Cognitive Behavioral TREATMENT ASSESSMENT/PROGRESS: Some improvements in reducing binge eating this week and weight loss TREATMENT PLAN/GOALS: Continue in therapy focusing on affect management. Next appointment: 2 weeks Ehsan Vasquez PSYD PROGRESS Observed: 03/24/2018 Status: COMPLETED Source: [place] 2:03 PM [facility] [place] REPOSITORY O ID: [id number] Author: Kay Maravilla (Therapeutic Massage Technician) [facility] Service: (none) Author Type: Nurse Practitioner Type: Progress Notes Filed: 03/24/2018 3:37 PM Note Text: CC: Gay Coleman is a 52 year old female who presents for weight loss medication follow up. HPI Currently taking Adipex. Starting Month 2 of 3. Denies: abdominal pain, nausea, vomiting, diarrhea, fevers, constipation, headache, change in urination, lightheadedness, weakness, numbness or tingling to arms or legs, edema, palpitations, sleep disturbances, impairment of concentration/attention, difficulty with memory, speech or language problems (particularly word-finding difficulties). Reports: no SE If DM any hypo/hyperglycemia Not applicable DIET- seeing space officer with Why Weight 02/09 visit Patient admits to emotional eating Eating more fruits and vegetables Decreased eating fast food No longer drinking pop Fluid intake:Water: 64 oz per day Food Behaviors: Out of control eating and Binge eating Exercise routine: YES Program: Moderate regular exercise program water aerobics, cardio , strength training and physical therapy Last week with community living coach. Plans 2-3 times a week. Weight/BMI Last 1 Encounter Wt Readings: Date: Wt: 03/17/2018 Last 2 Encounter Wt Readings: Date: Wt: 03/24/2018 110.7 kg (244 lb) 03/17/2018 112.9 kg (249 lb) BMI 38.22 kg/(m2) Last visit Wt: 112.9 kg (249 lb) BMI: 39.00 kg/(m2) Weight change since last visit: How much: 8 lbs, How lon month Has recommendation from insurance co for pulmonary rehab for her asthma. ROS as above, otherwise non-contributory. Reviewed PMHx, PSHx, social Hx, medications and allergies. PHYSICAL EXAM BP 136/86 Pulse 88 Resp 16 Wt 110.7 kg (244 lb) LMP 03/02/2015 BMI 38.22 kg/m? General Appearance: well appearing, in no acute distress, alert, obese Pysch: mood and affect broad and appropriate Lungs: Lungs clear to auscultation. No wheezing, rhonchi, rales Heart: RRR without murmur, gallop, or rubs. No ectopy Abdomen: Abdomen soft, non-tender. Bowel sounds normal. No masses, organomegaly ASSESSMENT/PLAN: 1. Obesity, Class II, BMI 35-39.9 - ICD9: 278.00, ICD10: E66.9 - Continue diet consisting of counting calories, counting fat grams and counting carbohydrates. - Reduce sugary drinks of artificial juices and sodas and replace with water and low calorie Crystal Light. - Healthy Snack alternatives have been discussed and will attempt more fruits and vegetables. - encouraged 3 meals a day - Continueexercise or meaningful activity for 20 minutes at lest 3 times a day [place]ARRS website checked and validated. All prescriptions have been APPROPRIATELY filled. No suspicious activity was identified.- 03/24/2018 by Kay Villalobos APRN.ZANA - reviewed SE, medication expectations, required weight loss of 5%, required monthly monitoring and medication duration of use (3 months on 6 months off) - f/u in 1 month 2. Exercise-induced asthma - ICD9: 493.81, ICD10: J45.990 - Continue current meds - Avoidance of triggers recommended - COMPOUNDED PRESCRIPTION Kay Villalobos APRN.ZANA ALFAROOV Observed: 03/24/2018 Status: COMPLETED Source: [place] 2:00 PM [facility] [place] REPOSITORY [facility] GAY COLEMAN ([id number]) 1965 F Date Time Provider Department 03/24/18 2:00 PM KAY VILLALOBOS (ZANA) KUNAL During your visit today, we recorded the following information about you: Pulse Respiration Blood pressure Weight 88/minute 16/minute 136/86 110.7 kg Kay Villalobos APRN.CNP 03/24/2018 3:37 PM Signed CC: Gay Coleman is a 52 year old female who presents for weight loss medication follow up. HPI Currently taking Adipex. Starting Month 2 of 3. Denies: abdominal pain, nausea, vomiting, diarrhea, fevers, constipation, headache, change in urination, lightheadedness, weakness, numbness or tingling to arms or legs, edema, palpitations, sleep disturbances, impairment of concentration/attention, difficulty with memory, speech or language problems (particularly word-finding difficulties). Reports: no SE If DM any hypo/hyperglycemia Not applicable DIET- seeing space officer with Why Weight 02/09 visit Patient admits to emotional eating Eating more fruits and vegetables Decreased eating fast food No longer drinking pop Fluid intake:Water: 64 oz per day Food Behaviors: Out of control eating and Binge eating Exercise routine: YES Program: Moderate regular exercise program water aerobics, cardio , strength training and physical therapy Last week with community living coach. Plans 2-3 times a week. Weight/BMI Last 1 Encounter Wt Readings: Date: Wt: 03/17/2018 Last 2 Encounter Wt Readings: Date: Wt: 03/24/2018 110.7 kg (244 lb) 03/17/2018 112.9 kg (249 lb) BMI 38.22 kg/(m2) Last visit Wt: 112.9 kg (249 lb) BMI: 39.00 kg/(m2) Weight change since last visit: How much: 8 lbs, How lon month Has recommendation from insurance co for pulmonary rehab for her asthma. ROS as above, otherwise non-contributory. Reviewed PMHx, PSHx, social Hx, medications and allergies. PHYSICAL EXAM BP 136/86 Pulse 88 Resp 16 Wt 110.7 kg (244 lb) LMP 03/02/2015 BMI 38.22 kg/m? General Appearance: well appearing, in no acute distress, alert, obese Pysch: mood and affect broad and appropriate Lungs: Lungs clear to auscultation. No wheezing, rhonchi, rales Heart: RRR without murmur, gallop, or rubs. No ectopy Abdomen: Abdomen soft, non-tender. Bowel sounds normal. No masses, organomegaly ASSESSMENT/PLAN: 1. Obesity, Class II, BMI 35-39.9 - ICD9: 278.00, ICD10: E66.9 - Continue diet consisting of counting calories, counting fat grams and counting carbohydrates. - Reduce sugary drinks of artificial juices and sodas and replace with water and low calorie Crystal Light. - Healthy Snack alternatives have been discussed and will attempt more fruits and vegetables. - encouraged 3 meals a day - Continueexercise or meaningful activity for 20 minutes at lest 3 times a day [employer] website checked and validated. All prescriptions have been APPROPRIATELY filled. No suspicious activity was identified.- 03/24/2018 by Kay Villalobos APRN.FINISHER CARD TENDER - reviewed SE, medication expectations, required weight loss of 5%, required monthly monitoring and medication duration of use (3 months on 6 months off) - f/u in 1 month 2. Exercise-induced asthma - ICD9: 493.81, ICD10: J45.990 - Continue current meds - Avoidance of triggers recommended - COMPOUNDED PRESCRIPTION Kay Villalobos APRN.FINISHER CARD TENDER Referring Provider: EVERTON ACEVEDO [[id number]] Allergies As of Date: 03/24/2018 Noted Allergy Reaction DUST 12/26/2006 NABUMETONE 10/04/2014 8 - GI Upset SEASONAL ALLERGIES 06/19/2015 14 - Other: See Comments SMOKE 12/26/2006 THIMERISOL (THIMEROSAL) 01/09/2016 5 - Intolerance Date Reviewed: 03/24/2018 Reviewed by: Aakash Burton LPN - Fully Assessed Primary Visit Diagnosis:Obesity, Class II, BMI 35-39.9 [E66.9] Other Visit Diagnosis:Exercise-induced asthma [J45.990] Order(s):Phentermine HCl (ADIPEX-P) 37.5 mg tabletTake 1 tablet by mouth once daily for 30 days. BMI 39Disp: 30 tabletRfl: 0 COMPOUNDED PRESCRIPTIONConsult pulmonary rehabDisp: 1 EachRfl: 0 Prescriptions as of 03/24/2018 Sig: PHENTERMINE 37.5 MG TABLET Take 1 tablet by mouth once d* CONJUGATED ESTROGENS 0.9 MG T* Take 1 tablet by mouth once d* PREGABALIN 100 MG CAPSULE Take 100 mg by mouth three ti* BUPROPION HCL SR 150 MG TABLE* Take 1 tablet by mouth twice * FLUTICASONE 250 MCG-SALMETERO* Inhale 1 Puff as instructed t* ALBUTEROL SULFATE HFA 90 MCG/* Inhale 2 Puffs as instructed * FLUOXETINE 40 MG CAPSULE Take 1 capsule by mouth once * LINACLOTIDE 290 MCG CAPSULE Take 1 capsule by mouth once * MIRABEGRON ER 25 MG TABLET,EX* Take 1 tablet by mouth once d* ALBUTEROL SULFATE 2.5 MG/3 ML* Use 3 mL via nebulizer every * DICLOFENAC SODIUM 75 MG TABLE* Take 1 tablet by mouth twice * DICLOFENAC 1 % TOPICAL GEL Apply to affected area four * MIRTAZAPINE 30 MG TABLET Take 1 tablet by mouth daily * Patient taking differently: Take 15 mg by mouth daily at * BACLOFEN 10 MG TABLET Take 1 tablet by mouth twice * Patient taking differently: Take 10 mg by mouth three justino* CHOLECALCIFEROL (VITAMIN D3) * Take 5,000 Units by mouth onc* CYANOCOBALAMIN (VIT B-12) 1,0* Take 1,000 mcg by mouth once * DOCUSATE SODIUM 250 MG CAPSULE Take 250 mg by mouth once sudhakar* COMPOUNDED PRESCRIPTION Consult pulmonary rehab MECLIZINE 12.5 MG TABLET Take 1-2 tablets by mouth twi* FLUCONAZOLE 150 MG TABLET Take 150 mg by mouth one time* DIAZEPAM 2 MG TABLET Take 2 mg by mouth every 6 ho* IXEKIZUMAB 80 MG/ML SUBCUTANE* Inject subcutaneously. PREGABALIN 75 MG CAPSULE Take 75 mg by mouth three justino* USTEKINUMAB 90 MG/ML SUBCUTAN* Inject subcutaneously. TRANSCUTANEOUS ELECTRICAL NER* 1 Device as needed. COMPOUNDED PRESCRIPTION Order: cock up splints (2) D* Problem List As Of Date 03/24/2018 Noted Resolved Migraine without aura [346.1] INVALID FOR*07/28/2017 Dysthymia [F34.1] INVALID FOR* Perimenopausal [N95.1] INVALID FOR*07/28/2017 Breast hypertrophy [N62] INVALID FOR* Bloating [R14.0] Constipation [K59.00] Adnexal mass [N94.9] INVALID FOR*10/31/2016 Flatulence, eructation, and gas pain [R14.3, R1*INVALID FOR*01/26/2015 Unspecified constipation [K59.00] INVALID FOR*01/26/2015 Midline low back pain without sciatica [M54.5] INVALID FOR* Intervertebral disc disorder with radiculopathy*INVALID FOR* DDD (degenerative disc disease), lumbar [M51.36]INVALID FOR* Cervical disc disorder with radiculopathy [M50.*INVALID FOR* DDD (degenerative disc disease), cervical [M50.*INVALID FOR* Carpal tunnel syndrome, bilateral [G56.03] INVALID FOR*07/28/2017 Asthma [J45.909] INVALID FOR*01/20/2018 OLGA (obstructive sleep apnea) [G47.33] INVALID FOR* More... Psoriasis [L40.9] INVALID FOR* OAB (overactive bladder) [N32.81] INVALID FOR* Impaired fasting glucose [R73.01] INVALID FOR* Exercise-induced asthma [J45.990] INVALID FOR* Obesity, Class III, BMI 40-49.9 (morbid obesity*INVALID FOR* Irritable bowel syndrome with constipation [K58*INVALID FOR* ANDREW (generalized anxiety disorder) [F41.1] INVALID FOR* Neck mass [R22.1] INVALID FOR* Prescriptions ordered this encounter Disp Refills Start End PHENTERMINE 37.5 MG TABLET 30 t* 0 03/24/2018 04/23/2018 Class: Print RX Route: ORAL Sig: Take 1 tablet by mouth once daily for 30 days. BMI 39 COMPOUNDED PRESCRIPTION 1 Ea* 0 03/24/2018 Class: Print RX Sig: Consult pulmonary rehab Medications Discontinued During This Encounter Phentermine HCl (ADIPEX-P) 37.5 mg t* 30 t* 0 02/24/2018 03/24/2018 Class: Print RX Route: ORAL Sig: Take 1 tablet by mouth once daily for 30 days. BMI 39 Disc: Reason for discontinue is not on file. Encounter Status:Closed by KAY VILLALOBOS CNP on 03/24/18 OPERATIVE REPORT Observed: 03/23/2018 Status: F Source: [place] 11:09 AM [facility] REPOSITORY [facility] Medical Records Department [address] [place] [address] Operative Report 03/23/18 1106 MR#: [id number] Acct: [id number] Name: GAY COLEMAN Rep #: [id number] : 1965 52 From: Yomi Malone MD PCP: Everton Cash, DO Status: DEP [facility] [place] [facility] [place] 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 Status: Chronic (2) Spondylosis of lumbosacral region without myelopathy or radiculopathy Status: Chronic Report of Operation Date of Procedure: 03/23/18 Pre-Operative Diagnosis: Lumbosacral spondylosis, lumbosacral degenerative disc disease, lumbar facet arthropathy Post-Operative Diagnosis: Lumbosacral spondylosis, lumbosacral degenerative disc disease, lumbar facet arthropathy Surgery/Procedure Performed:: Right-sided lumbar radiofrequency ablation of the medial branch at L3, L4, L5, S1 Description of Surgical Findings:: PROCEDURE: Right-sided radiofrequency ablation of the medial branch L3, L4, L5, S1 PREOPERATIVE DIAGNOSES: Lumbosacral spondylosis, lumbosacral degenerative disc disease, lumbar facet arthropathy POSTOPERATIVE DIAGNOSES: Lumbosacral spondylosis, lumbosacral degenerative disc disease, lumbar facet arthropathy ANESTHESIA: MAC COMPLICATIONS: None BLOOD LOSS: Minimal PROCEDURE IN DETAIL: History and physical today was reviewed. Risks and benefits of procedure explained. The patient understood, agreed to the procedure and informed consent was obtained. IV inserted per routine protocol. The patient was taken to the operating room, placed in the prone position with a pillow positioned underneath the abdomen. The right side of the lower back was prepped and draped in a sterile fashion using iodine x 3. Under fluoroscopy guidance, on an oblique view, the L3 through S1 vertebral bodies were visualized. The skin and subcutaneous tissue was anesthetized with approximately 10 mL of 1% lidocaine using a 25-gauge regular needle. Under direct visualization with fluoroscopy at approximately 25-degree angle, starting on the right L3, ending on the right S1 passing through the L4-L5 using a 20-gauge 15 cm with a 10 mm curved active tip radiofrequency ablation needle the needle passed through the skin. The tip of the needle was maneuvered and directed towards the superior and medial gutter of the transverse process at the vicinity of the medial branch. Once the tip of the needle was in contact with the bone, the needle pulled approximately 2 mm up the bone. The stylet of each needle was then removed. After negative aspiration of blood with CSF and confirmation of AP as well as oblique view, radiofrequency ablation probe was then inserted at each level. Impedance was then recorded at L3 to be 223, at L4 259, at L5 300, at S1 288 ohm. Motor-evoked potential was then initiated to 1.5 volt without any motor response at each corresponding level. The probe was then removed intact and a total of 6 mL preservative- free 1% lidocaine was injected in divided doses between those 4 levels after negative aspiration of blood with CSF. The radiofrequency ablation probe was then reinserted after confirmation of AP, oblique as well as lateral view. Radiofrequency ablation was then initiated to 80 degrees Celsius for 90 seconds at each level. Once concluded, the probe was then removed intact and a total of 6 mL of preservative-free 0.25% Marcaine with 40 mg Depo-Medrol was injected in divided doses between those 4 levels. The needles were then removed intact. The patient experienced no signs or symptoms of intrathecal, intravascular injection. The patient experienced no paraesthesia. The procedure was completed without any apparent difficulty, any complication. The patient appeared to tolerate well. Sensory as well as motor exam was unchanged from prior to procedure. ASSESSMENT AND PLAN: This is a 52-year-old Female with lumbosacral spondylosis, lumbosacral degenerative disc disease, lumbar facet arthropathy, status post right-sided radiofrequency ablation of the medial branch L3 through S1. The patient will continue her current medications. The patient will follow up in approximately 2 weeks for reevaluation. 03/23/18 1109 <Electronically signed by Yomi Malone MD> Date Yomi Malone MD CC: Yomi Malone; Everton Cash DO Signed L/S SPINE MIN 4 Observed: 03/23/2018 Status: F Source: JOELL[place] VIEWS 12:56 AM [facility] REPOSITORY [facility] Imaging Services [address] [place] [address] L/S Spine Min 4 Views MR#: [id number] Acct: [id number] Name: GAY COLEMAN Rep #: [id number] : 1965 F 52 From: Anshul Sams MD PCP: Everton Cash DO Status: [facility] Study: L/S Spine Min 4 Views Date of Exam: 03/23/18 Exam# [id number] Ordering Dr: Yomi Malone MD STUDY: X-RAY - LUMBAR SPINE REASON FOR EXAM: Female, 52 years old. Radiofrequency ablation right L3-S1 level. TECHNIQUE: 9 intraoperative coned down view(s) of the lumbar spine were obtained. COMPARISON: None FINDINGS: Imaging provided for right L3-S1 radiofrequency ablation. RAD/L/S Spine Min 4 Views IMPRESSION: Intraoperative imaging provided for right L3-S1 radiofrequency ablation. Electronically Signed: Anshul Sams MD at 10:43 EDT Tel [phone], Service support , CC: Yomi Malone; Everton Cash DO Skydiving Instructor: Signed PROGRESS Observed: 03/18/2018 Status: COMPLETED Source: [place] 3:43 PM [facility] REPOSITORY HNO ID: [id number] Author: Ehsan Sterling Service: (none) Author Type: Psychologist Type: Progress Notes Filed: 03/24/2018 3:02 PM Note Text: [facility] Progress Note Gay Coleman 03/18/2018 [id number] Provider: Ehsan Vasquez PSYD CPT Code: 73116 Psychotherapy 38-52 minutes Time: Approximately 45 minutes was spent in therapy. Parties Present: Patient Patient Presentation/Concerns: Queenie indicated that she struggled over mother's day. Very few people reached out to her, including her extended family. She states knowing her expectations but being unable to accept that her family can't give her what she needs. Queenie continues to work on healing from her medical issues/surgery. Queenie discussed an incident of emotional eating related to mother's day. Mental Status: Mood: neutral Affect: mood-congruent Thoughts/Associations:goal directed Suicidal/Homicidal Ideation: None expressed or evidenced Other Observations: Therapy Focus Mood/affect regulation MEDICATIONS: Per medical record: Current Outpatient Prescriptions: estrogens conjugated (PREMARIN) 0.9 mg tablet Take 1 tablet by mouth once daily. pregabalin (LYRICA) 100 mg capsule Take 100 mg by mouth three times daily. Phentermine HCl (ADIPEX-P) 37.5 mg tablet Take 1 tablet by mouth once daily for 30 days. BMI 39 buPROPion SR (ZYBAN SR; WELLBUTRIN SR) 150 mg 12 hr tablet Take 1 tablet by mouth twice daily. meclizine (ANTIVERT) 12.5 mg tab Take 1-2 tablets by mouth twice daily as needed (dizziness). fluconazole (DIFLUCAN) 150 mg tablet Take 150 mg by mouth one time only. diazePAM (VALIUM) 2 mg tablet Take 2 mg by mouth every 6 hours as needed. fluticasone-salmeterol (ADVAIR DISKUS) 250-50 mcg/dose dsdv Inhale 1 Puff as instructed twice daily. Rinse and gargle mouth after use with water. albuterol HFA (VENTOLIN HFA) 90 mcg/actuation inhaler Inhale 2 Puffs as instructed every 4 hours as needed for Wheezing/Shortness of Breath. FLUoxetine HCl (PROZAC) 40 mg capsule Take 1 capsule by mouth once daily. linaclotide (LINZESS) 290 mcg cap Take 1 capsule by mouth once daily. mirabegron (MYRBETRIQ) 25 mg Tb24 Take 1 tablet by mouth once daily. ixekizumab (TALTZ AUTOINJECTOR, 2 PACK,) 80 mg/mL AutoInjector Inject subcutaneously. albuterol (PROVENTIL) 2.5 mg /3 mL (0.083 %) nebulizer solution Use 3 mL via nebulizer every 4 hours as needed for Wheezing/Shortness of Breath. Use over 5-15minutes. diclofenac, EC, (VOLTAREN) 75 mg EC tablet Take 1 tablet by mouth twice daily. For pain/inflammation. Take with food. PER DR. MALONE diclofenac sodium (VOLTAREN) 1 % topical gel Apply to affected area four times daily. PER DR. MALONE pregabalin (LYRICA) 75 mg capsule Take 75 mg by mouth three times daily. mirtazapine (REMERON) 30 mg tablet Take 1 tablet by mouth daily at bedtime. (Patient taking differently: Take 15 mg by mouth daily at bedtime. 1 1/2 at bedtime ) baclofen (LIORESAL) 10 mg tablet Take 1 tablet by mouth twice daily. (Patient taking differently: Take 10 mg by mouth three times daily.) Ustekinumab (STELARA) 90 mg/mL syrg Inject subcutaneously. TENS Units malika 1 Device as needed. COMPOUNDED PRESCRIPTION Order: cock up splints (2)Dx: carpal tunnel syndrome bilateral Cholecalciferol, Vitamin D3, 5,000 unit tab Take 5,000 Units by mouth once daily. cyanocobalamin (VITAMIN B-12) 1,000 mcg tab Take 1,000 mcg by mouth once daily. Docusate Sodium 250 mg capsule Take 250 mg by mouth once daily. No current facility-administered medications for this visit. Psychiatric Medication Issues: No change from previous appointment DIAGNOSIS: Depression, recurrent Binge Eating Treatment Modality/Interventions: Cognitive Behavioral TREATMENT ASSESSMENT/PROGRESS: Stable TREATMENT PLAN/GOALS: Continue in therapy focusing on affect management and self-esteem. 1) Increase flexibility of thinking 2) Decrease expectations 3) Increase self-esteem Next appointment: 2 weeks Ehsan Vasquez PSYD PROGRESS Observed: 03/18/2018 Status: COMPLETED Source: [place] 3:19 PM [facility] REPOSITORY HNO ID: [id number] Author: Kassidy (PtLinda Acevedo Service: (none) Author Type: Physical Therapist Type: Progress Notes Filed: 03/18/2018 3:22 PM Note Text: Episode Visit Count: 3 Therapist That Will Oversee The Plan Of Care: Kassidy Acevedo Start of Care Date: 03/03/18 Onset Date: 03/03/14 REHABIL[facility]ATION AND SPORTS THERAPY PHYSICAL THERAPY TREATMENT NOTE ASSESSMENT: Gay Coleman demonstrated improvements in tolerance to exs , able to increase to 15 reps. Some cues needed for form The patient will continue to benefit from continued skilled physical therapy for assessment of neck pain and establish ex program for same PLAN FOR NEXT VISIT: Will assess cervical region and establish ex program. SUBJECTIVE: Pt notes that she is scheduled to have her nerves burned on irght side of low back on March 23. Still has pain severe pain. Notes that she did not have to have skin graft on wound on upper back. Pt notes that she is doing the exs at home Pain Score: 10/10 Pain Location: Low Back/Lumbar Spine - Left;Low Back/Lumbar Spine - Right Description: Aching;Stabbing Frequency: Continuous Post Treatment Pain Score: No Change Pain Location: Low Back/Lumbar Spine - Left;Low Back/Lumbar Spine - Right Post Treatment Pain Description: Aching OBJECTIVE MEASURES WITH LEVEL OF FUNCTION: TREATMENT: Therapeutic Exercise: 1: iso abs with marches seeated 3x15 2: bridges with arm support 3x15 3: purple rep band trunk flexion 2x15 4: iso abd. hooklying 2x15 5: core stabilization with perturbation purple rep band front and sides 3x15 6: scifit stepper seat 11 work 1 for 5 min 7: standing iso abs with alternate shld extension with orange rep band 3x15 8: blue rep band hip abduction seated 3x15 9: sit to stand from high mat table 1x10 Skilled Intervention: Patient was educated in proper exercise technique and purpose for exercises. Skilled judgment was provided in selection of appropriate interventions. Correct performance of therapeutic exercises was facilitated with verbal and visual cuing. Assigned Home Exercise Program: 1: increase reps as tolerated. Billing: [facility]: Therapeutic Exercise (98772): 1:1 time: 40 minutes (3 units: 38-52 mins) Total time: 40 minutes Kassidy Acevedo PT CNTHERAPY Observed: 03/18/2018 Status: COMPLETED Source: [place] 11:15 AM [facility] REPOSITORY OT/PT/Speech Visit (PTWS) GAY COLEMAN ([id number]) 1965 F Date Time Provider Department 03/18/18 11:15 AM KASSIDY ACEVEDO (PT) PTWS Date Time Provider Department Center 03/18/2018 11:15 AM [id number], LISA (PT) PTWS [facility] [place] Reason for Visit: Physical Therapy [503] Primary Visit Diagnosis: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] Other Visit Diagnosis:Cervical disc disorder with radiculopathy [M50.10] Allergies As of Date: 03/18/2018 Noted Allergy Reaction DUST 12/26/2006 NABUMETONE 10/04/2014 8 - GI Upset SEASONAL ALLERGIES 06/19/2015 14 - Other: See Comments SMOKE 12/26/2006 THIMERISOL (THIMEROSAL) 01/09/2016 5 - Intolerance Date Reviewed: 03/17/2018 Reviewed by: Joselin Fry Ma - Fully Assessed Prescriptions as of 03/18/2018 Sig: CONJUGATED ESTROGENS 0.9 MG T* Take 1 tablet by mouth once d* PREGABALIN 100 MG CAPSULE Take 100 mg by mouth three ti* PHENTERMINE 37.5 MG TABLET Take 1 tablet by mouth once d* BUPROPION HCL SR 150 MG TABLE* Take 1 tablet by mouth twice * MECLIZINE 12.5 MG TABLET Take 1-2 tablets by mouth twi* FLUCONAZOLE 150 MG TABLET Take 150 mg by mouth one time* DIAZEPAM 2 MG TABLET Take 2 mg by mouth every 6 ho* FLUTICASONE 250 MCG-SALMETERO* Inhale 1 Puff as instructed t* ALBUTEROL SULFATE HFA 90 MCG/* Inhale 2 Puffs as instructed * FLUOXETINE 40 MG CAPSULE Take 1 capsule by mouth once * LINACLOTIDE 290 MCG CAPSULE Take 1 capsule by mouth once * MIRABEGRON ER 25 MG TABLET,EX* Take 1 tablet by mouth once d* IXEKIZUMAB 80 MG/ML SUBCUTANE* Inject subcutaneously. ALBUTEROL SULFATE 2.5 MG/3 ML* Use 3 mL via nebulizer every * DICLOFENAC SODIUM 75 MG TABLE* Take 1 tablet by mouth twice * DICLOFENAC 1 % TOPICAL GEL Apply to affected area four * PREGABALIN 75 MG CAPSULE Take 75 mg by mouth three justino* MIRTAZAPINE 30 MG TABLET Take 1 tablet by mouth daily * Patient taking differently: Take 15 mg by mouth daily at * BACLOFEN 10 MG TABLET Take 1 tablet by mouth twice * Patient taking differently: Take 10 mg by mouth three justino* USTEKINUMAB 90 MG/ML SUBCUTAN* Inject subcutaneously. TRANSCUTANEOUS ELECTRICAL NER* 1 Device as needed. COMPOUNDED PRESCRIPTION Order: cock up splints (2) D* CHOLECALCIFEROL (VITAMIN D3) * Take 5,000 Units by mouth onc* CYANOCOBALAMIN (VIT B-12) 1,0* Take 1,000 mcg by mouth once * DOCUSATE SODIUM 250 MG CAPSULE Take 250 mg by mouth once sudhakar* Progress Notes: Kassidy Acevedo, PT 03/18/2018 3:22 PM Signed Episode Visit Count: 3 Therapist That Will Oversee The Plan Of Care: Kassidy Curtis Start of Care Date: 03/03/18 Onset Date: 03/03/14 REHABILITATION AND SPORTS THERAPY PHYSICAL THERAPY TREATMENT NOTE ASSESSMENT: Gay Coleman demonstrated improvements in tolerance to exs , able to increase to 15 reps. Some cues needed for form The patient will continue to benefit from continued skilled physical therapy for assessment of neck pain and establish ex program for same PLAN FOR NEXT VISIT: Will assess cervical region and establish ex program. SUBJECTIVE: Pt notes that she is scheduled to have her nerves burned on irght side of low back on March 23. Still has pain severe pain. Notes that she did not have to have skin graft on wound on upper back. Pt notes that she is doing the exs at home Pain Score: 10/10 Pain Location: Low Back/Lumbar Spine - Left;Low Back/Lumbar Spine - Right Description: Aching;Stabbing Frequency: Continuous Post Treatment Pain Score: No Change Pain Location: Low Back/Lumbar Spine - Left;Low Back/Lumbar Spine - Right Post Treatment Pain Description: Aching OBJECTIVE MEASURES WITH LEVEL OF FUNCTION: TREATMENT: Therapeutic Exercise: 1: iso abs with marches seeated 3x15 2: bridges with arm support 3x15 3: purple rep band trunk flexion 2x15 4: iso abd. hooklying 2x15 5: core stabilization with perturbation purple rep band front and sides 3x15 6: scifit stepper seat 11 work 1 for 5 min 7: standing iso abs with alternate shld extension with orange rep band 3x15 8: blue rep band hip abduction seated 3x15 9: sit to stand from high mat table 1x10 Skilled Intervention: Patient was educated in proper exercise technique and purpose for exercises. Skilled judgment was provided in selection of appropriate interventions. Correct performance of therapeutic exercises was facilitated with verbal and visual cuing. Assigned Home Exercise Program: 1: increase reps as tolerated. Billing: [facility]: Therapeutic Exercise ([id number]): 1:1 time: 40 minutes (3 units: 38-52 mins) Total time: 40 minutes Kassidy Acevedo PT JJ Observed: 03/17/2018 Status: COMPLETED Source: [place] 9:50 AM [facility] REPOSITORY Office Visit (WOOB) GAY COLEMAN ([id number]) 1965 F Date Time Provider Department 03/17/18 9:50 AM GENIE CARVAJAL During your visit today, we recorded the following information about you: Blood pressure Weight Height 120/64 112.9 kg 1.702 m Genie Hernandez MD 03/17/2018 10:30 AM Signed Mdm Sr offered: Patient declines. Gay Coleman is a 52 year old who presents for her annual gynecologic exam without complaints. She had a hysterectomy and BSO for heavy menses and ovarian cyst. Has been taking premarin 0.9 mg since surgery in 2014. She had tried to stop it for a few days and started back on due to symptoms. . Postmenopausal: Yes since hysterectomy BSO HRT use: Yes, premarin How long: since surgery. Last Pap: 2012 normal HPV: 2013 negative History of abnormal pap: No Last mammogram: 2018 normal History of abnormal mammogram: Yes follow up normal Sexually active: No History of STDS: None Last sexual contact: prior to surgery Time with current partner: 5 years History of fibroids: Yes, History of ovarian cyst: Yes, History of endometriosis: Yes, History of infertility: Yes, Hot flashes: Yes Night sweats: No Vaginal dryness: Yes Mood swings: Yes - on depression medication, but has been having more problems recently Insomnia: Yes Exercise: physical therapy daily, 15 minutes Diet: working on it, seeing space officer Obstetric History T0 L0 SAB0 TAB0 Ectopic0 Multiple0 Live Births0 PAST MEDICAL HISTORY Diagnosis Date - Allergic rhinitis, cause unspecified Allergic rhinitis - Asthma - Bloating - Carpal tunnel syndrome, bilateral 10/22/2016 - Constipation - Depressive disorder, not elsewhere classified - Eczema - Impaired fasting glucose 10/2015 - Insomnia Dr Fitzpatrick, on Bipap - Liver cyst 08/2016 benign - Lumbar radiculopathy, chronic L5/S1 - Migraine without aura 12/26/2006 - Mild carpal tunnel syndrome 04/2016 - OAB (overactive bladder) 10/31/2016 - OLGA (obstructive sleep apnea) Dr Fitzpatrick, on Bipap - Other chronic sinusitis - Perimenopausal 11/16/2012 - Psoriasis Gets injections every 3 months for this from Sameer Mata MD - Sensorineural hearing loss [place] PAST SURGICAL HISTORY Procedure Laterality Date - BREAST BIOPSY Right - CARPAL TUNNEL Bilateral 01/2017 - CATARACT SURGERY, COMPLEX right eye, left eye - COLONOSCOP W/ OR W/O BRSH SPEC 01/26/15 Colonoscopy - EXCISION NOSE POLYP(S),SIMPLE Nasal polypectomy - HYSTERECTOMY HX 2014 TRH with BSO - IANDD HEMATOMA 11/27/2017 incision and drainage of infected hematoma [facility] - PAST SURGICAL HISTORY OF 2014 bilateral foot bxs - PAST SURGICAL HISTORY OF 2015 nasal surgery/Turbinates - PAST SURGICAL HISTORY OF 04/2015 adnexal mass removal- benign - PAST SURGICAL HISTORY OF Bilateral 2011 bilateral breast reduction - PAST SURGICAL HISTORY OF mass removed from neck - PAST SURGICAL HISTORY OF 11/27/2017 IANDD infected hematoma upper back/posterior neck - REMOVAL OF TONSILS,<12 Y/O Tonsillectomy AND adenoidectomy - REPAIR OF NASAL SEPTUM Septoplasty - TORIC LENS left eye FAMILY HISTORY Problem Relation Age of Onset - Hypertension Mother - Hypertension Father - Stroke Maternal Grandfather - Alcohol/Drug Paternal Grandmother - Alcohol/Drug Paternal Grandfather - Hypertension Brother - Diabetes Maternal Aunt - Alcohol/Drug Paternal Aunt - Alcohol/Drug Paternal Uncle - Cancer Paternal Uncle - Stroke Maternal Aunt SOCIAL HISTORY Social History Substance Use Topics - Smoking status: Never Smoker - Smokeless tobacco: Never Used - Alcohol use No REVIEW OF SYSTEMS Abdomen: No abdominal pain, nausea, vomiting, diarrhea. No bloating, early satiety, or increased flatulence. Complains of constipation, bloating, indigestion. Bladder: No dysuria, gross hematuria, urinary frequency, Complains of urgency, overactive bladder, incontinence. Breast: No breast lumps, nipple d/c, overlying skin changes, redness or skin retraction. Allergies and current medication updated:Yes EXAM: LMP 03/02/2015 GENERAL: pleasant, female in no apparent distress HEENT: Normocephalic, atraumatic, mucus membranes moist and no lesions NECK: Supple, full range of motion, no adenopathy and thyroid normal DERMATOLOGY: Normal, without lesions, non-icteric and non-hirsute BREAST: soft, non-tender, symmetric, no dominant mass, normal nipple-areolar complex, no lymphadenopathy and no nipple discharge ABDOMEN: soft, non-tender and no masses PELVIC: external genitalia normal, normal Bartholin's glands, urethra, Westwood's glands, no vulvar lesions, good vaginal support, physiologic discharge present, normal appearing perineal body and perianal region, cervix surgically absent BIMANUAL: no adnexal masses, non-tender and uterus surgically absent RECTOVAGINAL: deferred. NEURO: alert and oriented x3,exam grossly non-focal EXTREMITIES: normal ASSESSMENT/PLAN: 1) Health maintenance: Pap/HPV screening no longer needed Mammogram due November 2018 Mammogram up to date Nutrition, exercise and routine health maintenance exams reviewed. Calcium/Vitamin D supplementation information provided. Colon cancer screening: up to date with screening 2) Follow up one year or sooner as needed 3) HRT reviewed with patient- rx given. Genie Hernandez MD Referring Provider: SELF [200] Allergies As of Date: 03/17/2018 Noted Allergy Reaction DUST 12/26/2006 NABUMETONE 10/04/2014 8 - GI Upset SEASONAL ALLERGIES 06/19/2015 14 - Other: See Comments SMOKE 12/26/2006 THIMERISOL (THIMEROSAL) 01/09/2016 5 - Intolerance Date Reviewed: 03/17/2018 Reviewed by: Joselin Fry Ma - Fully Assessed Reason for Visit: Yearly Exam [187] Primary Visit Diagnosis:Encounter for gynecological examination (general) (routine) without abnormal findings [Z01.419] Other Visit Diagnoses:Encounter for screening mammogram for malignant neoplasm of breast [Z12.31] Surgical menopause on hormone replacement therapy [E89.40, Z79.890] Order(s):JANINE SCREENING [[id number]] Order #: [id number] FUTURE estrogens conjugated (PREMARIN) 0.9 mg tabletTake 1 tablet by mouth once daily.Disp: 90 tabletRfl: 4 Prescriptions as of 03/17/2018 Sig: CONJUGATED ESTROGENS 0.9 MG T* Take 1 tablet by mouth once d* PREGABALIN 100 MG CAPSULE Take 100 mg by mouth three ti* PHENTERMINE 37.5 MG TABLET Take 1 tablet by mouth once d* BUPROPION HCL SR 150 MG TABLE* Take 1 tablet by mouth twice * MECLIZINE 12.5 MG TABLET Take 1-2 tablets by mouth twi* FLUTICASONE 250 MCG-SALMETERO* Inhale 1 Puff as instructed t* ALBUTEROL SULFATE HFA 90 MCG/* Inhale 2 Puffs as instructed * FLUOXETINE 40 MG CAPSULE Take 1 capsule by mouth once * LINACLOTIDE 290 MCG CAPSULE Take 1 capsule by mouth once * MIRABEGRON ER 25 MG TABLET,EX* Take 1 tablet by mouth once d* ALBUTEROL SULFATE 2.5 MG/3 ML* Use 3 mL via nebulizer every * DICLOFENAC SODIUM 75 MG TABLE* Take 1 tablet by mouth twice * DICLOFENAC 1 % TOPICAL GEL Apply to affected area four * MIRTAZAPINE 30 MG TABLET Take 1 tablet by mouth daily * Patient taking differently: Take 15 mg by mouth daily at * BACLOFEN 10 MG TABLET Take 1 tablet by mouth twice * Patient taking differently: Take 10 mg by mouth three justino* USTEKINUMAB 90 MG/ML SUBCUTAN* Inject subcutaneously. TRANSCUTANEOUS ELECTRICAL NER* 1 Device as needed. COMPOUNDED PRESCRIPTION Order: cock up splints (2) D* CHOLECALCIFEROL (VITAMIN D3) * Take 5,000 Units by mouth onc* DOCUSATE SODIUM 250 MG CAPSULE Take 250 mg by mouth once sudhakar* FLUCONAZOLE 150 MG TABLET Take 150 mg by mouth one time* DIAZEPAM 2 MG TABLET Take 2 mg by mouth every 6 ho* IXEKIZUMAB 80 MG/ML SUBCUTANE* Inject subcutaneously. PREGABALIN 75 MG CAPSULE Take 75 mg by mouth three justino* CYANOCOBALAMIN (VIT B-12) 1,0* Take 1,000 mcg by mouth once * Problem List As Of Date 03/17/2018 Noted Resolved Migraine without aura [346.1] INVALID FOR*07/28/2017 Dysthymia [F34.1] INVALID FOR* Perimenopausal [N95.1] INVALID FOR*07/28/2017 Breast hypertrophy [N62] INVALID FOR* Bloating [R14.0] Constipation [K59.00] Adnexal mass [N94.9] INVALID FOR*10/31/2016 Flatulence, eructation, and gas pain [R14.3, R1*INVALID FOR*01/26/2015 Unspecified constipation [K59.00] INVALID FOR*01/26/2015 Midline low back pain without sciatica [M54.5] INVALID FOR* Intervertebral disc disorder with radiculopathy*INVALID FOR* DDD (degenerative disc disease), lumbar [M51.36]INVALID FOR* Cervical disc disorder with radiculopathy [M50.*INVALID FOR* DDD (degenerative disc disease), cervical [M50.*INVALID FOR* Carpal tunnel syndrome, bilateral [G56.03] INVALID FOR*07/28/2017 Asthma [J45.909] INVALID FOR*01/20/2018 OLGA (obstructive sleep apnea) [G47.33] INVALID FOR* More... Psoriasis [L40.9] INVALID FOR* OAB (overactive bladder) [N32.81] INVALID FOR* Impaired fasting glucose [R73.01] INVALID FOR* Exercise-induced asthma [J45.990] INVALID FOR* Obesity, Class III, BMI 40-49.9 (morbid obesity*INVALID FOR* Irritable bowel syndrome with constipation [K58*INVALID FOR* ANDREW (generalized anxiety disorder) [F41.1] INVALID FOR* Neck mass [R22.1] INVALID FOR* Prescriptions ordered this encounter Disp Refills Start End CONJUGATED ESTROGENS 0.9 MG TABLET 90 t* 4 03/17/2018 Route: ORAL Sig: Take 1 tablet by mouth once daily. Medications Discontinued During This Encounter estrogens conjugated (PREMARIN) 0.9 * 90 t* 4 02/25/2017 03/17/2018 Route: ORAL Sig: Take 1 tablet by mouth once daily. Disc: Reason for discontinue is not on file. Disposition: Return in 1 year (on 03/17/2019) for Annual Exam. Follow-up and Disposition History Recorded Encounter Status:Closed by GENIE FLORES MD on 03/17/18 PROGRESS Observed: 03/17/2018 Status: COMPLETED Source: [place] 9:44 AM [facility] [place] REPOSITORY HNO ID: [id number] Author: Genie Flores Service: (none) Author Type: Physician Type: Progress Notes Filed: 03/17/2018 10:30 AM Note Text: Mdm Sr offered: Patient declines. Gay Coleman is a 52 year old who presents for her annual gynecologic exam without complaints. She had a hysterectomy and BSO for heavy menses and ovarian cyst. Has been taking premarin 0.9 mg since surgery in 2014. She had tried to stop it for a few days and started back on due to symptoms. . Postmenopausal: Yes since hysterectomy BSO HRT use: Yes, premarin How long: since surgery. Last Pap: 2012 normal HPV: 2012 negative History of abnormal pap: No Last mammogram: 2017 normal History of abnormal mammogram: Yes follow up normal Sexually active: No History of STDS: None Last sexual contact: prior to surgery Time with current partner: 5 years History of fibroids: Yes, History of ovarian cyst: Yes, History of endometriosis: Yes, History of infertility: Yes, Hot flashes: Yes Night sweats: No Vaginal dryness: Yes Mood swings: Yes - on depression medication, but has been having more problems recently Insomnia: Yes Exercise: physical therapy daily, 15 minutes Diet: working on it, seeing space officer Obstetric History T0 L0 SAB0 TAB0 Ectopic0 Multiple0 Live Births0 PAST MEDICAL HISTORY Diagnosis Date - Allergic rhinitis, cause unspecified Allergic rhinitis - Asthma - Bloating - Carpal tunnel syndrome, bilateral 10/22/2016 - Constipation - Depressive disorder, not elsewhere classified - Eczema - Impaired fasting glucose 10/2015 - Insomnia Dr Fitzpatrick, on Bipap - Liver cyst 08/2016 benign - Lumbar radiculopathy, chronic L5/S1 - Migraine without aura 12/26/2006 - Mild carpal tunnel syndrome 04/2016 - OAB (overactive bladder) 10/31/2016 - OLGA (obstructive sleep apnea) Dr Fitzpatrick, on Bipap - Other chronic sinusitis - Perimenopausal 11/16/2012 - Psoriasis Gets injections every 3 months for this from Sameer Mata MD - Sensorineural hearing loss [place] PAST SURGICAL HISTORY Procedure Laterality Date - BREAST BIOPSY Right - CARPAL TUNNEL Bilateral 01/2017 - CATARACT SURGERY, COMPLEX right eye, left eye - COLONOSCOP W/ OR W/O BRSH SPEC 01/26/15 Colonoscopy - EXCISION NOSE POLYP(S),SIMPLE Nasal polypectomy - HYSTERECTOMY HX 2014 TRH with BSO - IANDD HEMATOMA 11/27/2017 incision and drainage of infected hematoma [facility] - PAST SURGICAL HISTORY OF 2014 bilateral foot bxs - PAST SURGICAL HISTORY OF 2014 nasal surgery/Turbinates - PAST SURGICAL HISTORY OF 04/2015 adnexal mass removal- benign - PAST SURGICAL HISTORY OF Bilateral 2010 bilateral breast reduction - PAST SURGICAL HISTORY OF mass removed from neck - PAST SURGICAL HISTORY OF 11/27/2017 IANDD infected hematoma upper back/posterior neck - REMOVAL OF TONSILS,<12 Y/O Tonsillectomy AND adenoidectomy - REPAIR OF NASAL SEPTUM Septoplasty - TORIC LENS left eye FAMILY HISTORY Problem Relation Age of Onset - Hypertension Mother - Hypertension Father - Stroke Maternal Grandfather - Alcohol/Drug Paternal Grandmother - Alcohol/Drug Paternal Grandfather - Hypertension Brother - Diabetes Maternal Aunt - Alcohol/Drug Paternal Aunt - Alcohol/Drug Paternal Uncle - Cancer Paternal Uncle - Stroke Maternal Aunt SOCIAL HISTORY Social History Substance Use Topics - Smoking status: Never Smoker - Smokeless tobacco: Never Used - Alcohol use No REVIEW OF SYSTEMS Abdomen: No abdominal pain, nausea, vomiting, diarrhea. No bloating, early satiety, or increased flatulence. Complains of constipation, bloating, indigestion. Bladder: No dysuria, gross hematuria, urinary frequency, Complains of urgency, overactive bladder, incontinence. Breast: No breast lumps, nipple d/c, overlying skin changes, redness or skin retraction. Allergies and current medication updated:Yes EXAM: LMP 03/02/2015 GENERAL: pleasant, female in no apparent distress HEENT: Normocephalic, atraumatic, mucus membranes moist and no lesions NECK: Supple, full range of motion, no adenopathy and thyroid normal DERMATOLOGY: Normal, without lesions, non-icteric and non-hirsute BREAST: soft, non-tender, symmetric, no dominant mass, normal nipple-areolar complex, no lymphadenopathy and no nipple discharge ABDOMEN: soft, non-tender and no masses PELVIC: external genitalia normal, normal Bartholin's glands, urethra, Westwood's glands, no vulvar lesions, good vaginal support, physiologic discharge present, normal appearing perineal body and perianal region, cervix surgically absent BIMANUAL: no adnexal masses, non-tender and uterus surgically absent RECTOVAGINAL: deferred. NEURO: alert and oriented x3,exam grossly non-focal EXTREMITIES: normal ASSESSMENT/PLAN: 1) Health maintenance: Pap/HPV screening no longer needed Mammogram due November 2018 Mammogram up to date Nutrition, exercise and routine health maintenance exams reviewed. Calcium/Vitamin D supplementation information provided. Colon cancer screening: up to date with screening 2) Follow up one year or sooner as needed 3) HRT reviewed with patient- rx given. Genie Hernandez MD HEMOGLOBIN A1C Collected: 03/12/2018 Status: F Source: [place] 4:12 PM [facility] REPOSITORY TYPE CODE TESTS RESULT OUT OF REFERENCE UNITS RANGE LAB HGBA1C 4.3-5.6 % Hemoglobin A1c 5.3 LAB HBA0 mg/dL Est. Average Glucose 105 Result Comment: eAG: (Estimated average glucose) is a calculated value from HgbA1c and is indirect sales representative of the average blood glucose level in the last 2-3 month period. Performed By: #### HBA1C #### [facility] [address] [place] [id number] CBC AND DIFFERENTIAL Collected: 03/12/2018 Status: F Source: [place] 4:11 PM [facility] REPOSITORY TYPE CODE TESTS RESULT OUT OF REFERENCE UNITS RANGE LAB WBC 3.70-11.00 k/uL WBC 8.77 LAB RBC 3.90-5.20 m/uL RBC 4.23 LAB HGB 11.5-15.5 g/dL Hemoglobin 12.7 LAB HCT 36.0-46.0 % Hematocrit 40.5 LAB MCV 80.0-100.0 fL MCV 95.7 LAB MCH 26.0-34.0 pG MCH 30.0 LAB MCHC 30.5-36.0 g/dL MCHC 31.4 LAB RDWCV 11.5-15.0 % RDW-CV High 16.0 LAB PLTCT 150-400 k/uL Platelet Count 281 LAB MPV 9.0-12.7 fL MPV 11.5 LAB ANEUT % Neut% 64.3 LAB AANEUT 1.45-7.50 k/uL Abs Neut 5.64 LAB ALYMP % Lymph% 27.1 LAB AALYMP 1.00-4.00 k/uL Abs Lymph 2.38 LAB AMONO % [place]% 7.0 LAB AAMONO <0.87 k/uL Abs [place] 0.61 LAB AEOS % Eosin% 0.9 LAB AAEOS <0.46 k/uL Abs Eosin 0.08 LAB ABASO % Baso% 0.7 LAB AABASO <0.11 k/uL Abs Baso 0.06 LAB AUNRBC 0 /100 WBC NRBCs 0.0 LAB ABNRBC <0.01 k/uL Absolute nRBC <0.01 LAB DTYP DTYPE Auto Diff Performed By: #### CBCDIF, IRON, FERR #### [facility] [address] [place], [place] [address] IRON AND TIBC Collected: 03/12/2018 Status: F Source: [place] 4:11 PM [facility] REPOSITORY TYPE CODE TESTS RESULT OUT OF REFERENCE UNITS RANGE LAB IRN 41-186 ug/dL Iron 63 LAB TIBC 232-386 ug/dL TIBC High 400 LAB SAT 15-57 % Transferrin Saturatn 16 Performed By: #### CBCDIF, IRON, FERR #### [facility] [employer] [address] [place], [place] [address] FERRITIN Collected: 03/12/2018 Status: F Source: [place] 4:11 PM [facility] REPOSITORY TYPE CODE TESTS RESULT OUT OF REFERENCE UNITS RANGE LAB FERR 14.7-205.1 ng/mL Ferritin 30.8 Performed By: #### CBCDIF, IRON, FERR #### [facility] [address] [place], [place] [address] PROGRESS Observed: 03/11/2018 Status: COMPLETED Source: [place] 5:59 PM [facility] RE[facility]IT[facility] HNO ID: [id number] Author: Ehsan Sterling Service: (none) Author Type: Psychologist Type: Progress Notes Filed: 03/18/2018 2:02 PM Note Text: [facility] Progress Note Gay Coleman 03/11/2018 [id number] Provider: Ehsan Vasquez PSYD CPT Code: 75160 Psychotherapy 38-52 minutes Time: Approximately 46 minutes was spent in therapy. Parties Present: Patient Patient Presentation/Concerns: Gay was very tearful today. Mother's day is coming up. This triggered many thoughts about her family, having no children herself, her current argument with her mother. She reported being very angry and hurt. This led to a significant binge. Prior to this episode Queenie had lost weight. She weighed in at 146 (down from mid 150's). She has been eating salads, not binge eating at night. Mental Status: Mood: dysphoric, depressed, sad Affect: mood-congruent Thoughts/Associations:goal directed Suicidal/Homicidal Ideation: None expressed or evidenced Other Observations: none Therapy Focus Self-care and Mood/affect regulation MEDICATIONS: Per medical record: Current Outpatient Prescriptions: pregabalin (LYRICA) 100 mg capsule Take 100 mg by mouth three times daily. Phentermine HCl (ADIPEX-P) 37.5 mg tablet Take 1 tablet by mouth once daily for 30 days. BMI 39 buPROPion SR (ZYBAN SR; WELLBUTRIN SR) 150 mg 12 hr tablet Take 1 tablet by mouth twice daily. meclizine (ANTIVERT) 12.5 mg tab Take 1-2 tablets by mouth twice daily as needed (dizziness). fluconazole (DIFLUCAN) 150 mg tablet Take 150 mg by mouth one time only. diazePAM (VALIUM) 2 mg tablet Take 2 mg by mouth every 6 hours as needed. fluticasone-salmeterol (ADVAIR DISKUS) 250-50 mcg/dose dsdv Inhale 1 Puff as instructed twice daily. Rinse and gargle mouth after use with water. albuterol HFA (VENTOLIN HFA) 90 mcg/actuation inhaler Inhale 2 Puffs as instructed every 4 hours as needed for Wheezing/Shortness of Breath. FLUoxetine HCl (PROZAC) 40 mg capsule Take 1 capsule by mouth once daily. linaclotide (LINZESS) 290 mcg cap Take 1 capsule by mouth once daily. mirabegron (MYRBETRIQ) 25 mg Tb24 Take 1 tablet by mouth once daily. ixekizumab (TALTZ AUTOINJECTOR, 2 PACK,) 80 mg/mL AutoInjector Inject subcutaneously. albuterol (PROVENTIL) 2.5 mg /3 mL (0.083 %) nebulizer solution Use 3 mL via nebulizer every 4 hours as needed for Wheezing/Shortness of Breath. Use over 5-15minutes. diclofenac, EC, (VOLTAREN) 75 mg EC tablet Take 1 tablet by mouth twice daily. For pain/inflammation. Take with food. PER DR. MALONE diclofenac sodium (VOLTAREN) 1 % topical gel Apply to affected area four times daily. PER DR. MALONE pregabalin (LYRICA) 75 mg capsule Take 75 mg by mouth three times daily. estrogens conjugated (PREMARIN) 0.9 mg tablet Take 1 tablet by mouth once daily. mirtazapine (REMERON) 30 mg tablet Take 1 tablet by mouth daily at bedtime. (Patient taking differently: Take 15 mg by mouth daily at bedtime. 1 1/2 at bedtime ) baclofen (LIORESAL) 10 mg tablet Take 1 tablet by mouth twice daily. (Patient taking differently: Take 10 mg by mouth three times daily.) Ustekinumab (STELARA) 90 mg/mL syrg Inject subcutaneously. TENS Units malika 1 Device as needed. COMPOUNDED PRESCRIPTION Order: cock up splints (2)Dx: carpal tunnel syndrome bilateral Cholecalciferol, Vitamin D3, 5,000 unit tab Take 5,000 Units by mouth once daily. cyanocobalamin (VITAMIN B-12) 1,000 mcg tab Take 1,000 mcg by mouth once daily. Docusate Sodium 250 mg capsule Take 250 mg by mouth once daily. No current facility-administered medications for this visit. Psychiatric Medication Issues: No change from previous appointment DIAGNOSIS: Depression, recurrent Binge Eating Disorder Treatment Modality/Interventions: Cognitive Behavioral TREATMENT ASSESSMENT/PROGRESS: Stable TREATMENT PLAN/GOALS: Continue in therapy focusing on affect management. Next appointment: 2 weeks Ehsan Vasquez PSYD CNPTOUTREACH Observed: 03/10/2018 Status: COMPLETED Source: [place] 12:00 AM [facility] REPOSITORY Patient Outreach ([facility]) GAY COLEMAN ([id number]) 1965 F Date Time Provider Department 03/10/18 [place] [facility] During your visit today, we recorded the following information about you: Allergies As of Date: 03/10/2018 Noted Allergy Reaction DUST 12/26/2006 NABUMETONE 10/04/2014 8 - GI Upset SEASONAL ALLERGIES 06/19/2015 14 - Other: See Comments SMOKE 12/26/2006 THIMERISOL (THIMEROSAL) 01/09/2016 5 - Intolerance Date Reviewed: 02/24/2018 Reviewed by: Ehsan Laboy LPN - Fully Assessed Visit Diagnosis:Medication management [Z79.899] Order(s):HGB A1C [[id number]] Order #: [id number] FUTURE Prescriptions as of 03/10/2018 Sig: PREGABALIN 100 MG CAPSULE Take 100 mg by mouth three ti* X PHENTERMINE 37.5 MG TABLET Take 1 tablet by mouth once d* BUPROPION HCL SR 150 MG TABLE* Take 1 tablet by mouth twice * MECLIZINE 12.5 MG TABLET Take 1-2 tablets by mouth twi* X FLUCONAZOLE 150 MG TABLET Take 150 mg by mouth one time* X DIAZEPAM 2 MG TABLET Take 2 mg by mouth every 6 ho* ALBUTEROL SULFATE HFA 90 MCG/* Inhale 2 Puffs as instructed * X FLUTICASONE 250 MCG-SALMETERO* Inhale 1 Puff as instructed t* X FLUOXETINE 40 MG CAPSULE Take 1 capsule by mouth once * X LINACLOTIDE 290 MCG CAPSULE Take 1 capsule by mouth once * X MIRABEGRON ER 25 MG TABLET,EX* Take 1 tablet by mouth once d* X IXEKIZUMAB 80 MG/ML SUBCUTANE* Inject subcutaneously. ALBUTEROL SULFATE 2.5 MG/3 ML* Use 3 mL via nebulizer every * DICLOFENAC SODIUM 75 MG TABLE* Take 1 tablet by mouth twice * DICLOFENAC 1 % TOPICAL GEL Apply to affected area four * X PREGABALIN 75 MG CAPSULE Take 75 mg by mouth three justino* X CONJUGATED ESTROGENS 0.9 MG T* Take 1 tablet by mouth once d* X MIRTAZAPINE 30 MG TABLET Take 1 tablet by mouth daily * Patient taking differently: Take 15 mg by mouth daily at * BACLOFEN 10 MG TABLET Take 1 tablet by mouth twice * Patient taking differently: Take 10 mg by mouth three justino* X USTEKINUMAB 90 MG/ML SUBCUTAN* Inject subcutaneously. TRANSCUTANEOUS ELECTRICAL NER* 1 Device as needed. COMPOUNDED PRESCRIPTION Order: cock up splints (2) D* CHOLECALCIFEROL (VITAMIN D3) * Take 5,000 Units by mouth onc* CYANOCOBALAMIN (VIT B-12) 1,0* Take 1,000 mcg by mouth once * DOCUSATE SODIUM 250 MG CAPSULE Take 250 mg by mouth once sudhakar* Problem List As Of Date 03/10/2018 Noted Resolved Migraine without aura [346.1] INVALID FOR*07/28/2017 Dysthymia [F34.1] INVALID FOR* Perimenopausal [N95.1] INVALID FOR*07/28/2017 Breast hypertrophy [N62] INVALID FOR* Bloating [R14.0] Constipation [K59.00] Adnexal mass [N94.9] INVALID FOR*10/31/2016 Flatulence, eructation, and gas pain [R14.3, R1*INVALID FOR*01/26/2015 Unspecified constipation [K59.00] INVALID FOR*01/26/2015 Midline low back pain without sciatica [M54.5] INVALID FOR* Intervertebral disc disorder with radiculopathy*INVALID FOR* DDD (degenerative disc disease), lumbar [M51.36]INVALID FOR* Cervical disc disorder with radiculopathy [M50.*INVALID FOR* DDD (degenerative disc disease), cervical [M50.*INVALID FOR* Carpal tunnel syndrome, bilateral [G56.03] INVALID FOR*07/28/2017 Asthma [J45.909] INVALID FOR*01/20/2018 OLGA (obstructive sleep apnea) [G47.33] INVALID FOR* More... Psoriasis [L40.9] INVALID FOR* OAB (overactive bladder) [N32.81] INVALID FOR* Impaired fasting glucose [R73.01] INVALID FOR* Exercise-induced asthma [J45.990] INVALID FOR* Obesity, Class III, BMI 40-49.9 (morbid obesity*INVALID FOR* Irritable bowel syndrome with constipation [K58*INVALID FOR* ANDREW (generalized anxiety disorder) [F41.1] INVALID FOR* Neck mass [R22.1] INVALID FOR* Encounter Status:Closed by YANDEL SANTANA on 08/14/18 PROGRESS Observed: 03/06/2018 Status: COMPLETED Source: [place] 11:54 AM [facility] REPOSITORY HNO ID: [id number] Author: Kassidy Acevedo (Pt) Service: (none) Author Type: Physical Therapist Type: Progress Notes Filed: 03/06/2018 11:57 AM Note Text: Episode Visit Count: 2 Therapist That Will Oversee The Plan Of Care: Kassidy Acevedo Start of Care Date: 03/03/18 Onset Date: 03/03/14 REHABILITATION AND SPORTS THERAPY PHYSICAL THERAPY TREATMENT NOTE ASSESSMENT: Gay Matthew Coleman demonstrated good form with exs and able to complete with no antalgic movements. Able to advance ex program today The patient will continue to benefit from continued skilled physical therapy for further progression of exs PLAN FOR NEXT VISIT: Pt modify and progress exs as able Plan of care changed to 1x every other week in light of insurance coverage of 10 visits per year SUBJECTIVE: Pt notes that she has been doing exs but wants to find a better chair. Pain Score: 10/10 Pain Location: Low Back/Lumbar Spine - Left;Low Back/Lumbar Spine - Right Description: Aching;Stabbing Frequency: Continuous Post Treatment Pain Score: No Change Pain Location: Low Back/Lumbar Spine - Left Post Treatment Pain Description: Aching OBJECTIVE MEASURES WITH LEVEL OF FUNCTION: none taken TREATMENT: Therapeutic Exercise: 1: iso abs with marches 3x10 2: bridges with arm support 3x10 3: purple rep band trunk flexion 2x15 4: iso abd. with marches hooklying 2x10 5: core stabilization with perturbation purple rep band front and sides 3x10 6: scifit stepper seat 11 work 1 for 4 minl. 7: standing iso abs with alternate shld extension with orange rep band 8: blue rep band hip abduction seated 3x10 9: sit to stand from high mat table 1x10 Skilled Intervention: Patient was educated in proper exercise technique and purpose for exercises. Skilled judgment was provided in selection of appropriate interventions. Provided written instruction for home exercise program to facilitate proper performance and compliance. Correct performance of therapeutic exercises was facilitated with verbal and visual cuing. Billing: [facility]: Therapeutic Exercise ([id number]): 1:1 time: 45 minutes (3 units: 38-52 mins) Total time: 45 minutes Kassidy Acevedo PT CNTHERAPY Observed: 03/06/2018 Status: COMPLETED Source: [place] 9:15 AM [facility] REPOSITORY OT/PT/Speech Visit (PTWS) GAY COLEMAN ([id number]) 1965 F Date Time Provider Department 03/06/18 9:15 AM KASSIDY ACEVEDO (PT) PTWS Date Time Provider Department Center 03/06/2018 9:15 AM [id number], LISA (PT) PTWS [facility] Reason for Visit: Physical Therapy [503] Visit Diagnoses:Cervical disc disorder with radiculopathy [M50.10] 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] Allergies As of Date: 03/06/2018 Noted Allergy Reaction DUST 12/26/2006 NABUMETONE 10/04/2014 8 - GI Upset SEASONAL ALLERGIES 06/19/2015 14 - Other: See Comments SMOKE 12/26/2006 THIMERISOL (THIMEROSAL) 01/09/2016 5 - Intolerance Date Reviewed: 02/24/2018 Reviewed by: Ehsan Laboy LPN - Fully Assessed Prescriptions as of 03/06/2018 Sig: PREGABALIN 100 MG CAPSULE Take 100 mg by mouth three ti* PHENTERMINE 37.5 MG TABLET Take 1 tablet by mouth once d* BUPROPION HCL SR 150 MG TABLE* Take 1 tablet by mouth twice * MECLIZINE 12.5 MG TABLET Take 1-2 tablets by mouth twi* FLUCONAZOLE 150 MG TABLET Take 150 mg by mouth one time* DIAZEPAM 2 MG TABLET Take 2 mg by mouth every 6 ho* FLUTICASONE 250 MCG-SALMETERO* Inhale 1 Puff as instructed t* ALBUTEROL SULFATE HFA 90 MCG/* Inhale 2 Puffs as instructed * FLUOXETINE 40 MG CAPSULE Take 1 capsule by mouth once * LINACLOTIDE 290 MCG CAPSULE Take 1 capsule by mouth once * MIRABEGRON ER 25 MG TABLET,EX* Take 1 tablet by mouth once d* IXEKIZUMAB 80 MG/ML SUBCUTANE* Inject subcutaneously. ALBUTEROL SULFATE 2.5 MG/3 ML* Use 3 mL via nebulizer every * DICLOFENAC SODIUM 75 MG TABLE* Take 1 tablet by mouth twice * DICLOFENAC 1 % TOPICAL GEL Apply to affected area four * PREGABALIN 75 MG CAPSULE Take 75 mg by mouth three justino* CONJUGATED ESTROGENS 0.9 MG T* Take 1 tablet by mouth once d* MIRTAZAPINE 30 MG TABLET Take 1 tablet by mouth daily * Patient taking differently: Take 15 mg by mouth daily at * BACLOFEN 10 MG TABLET Take 1 tablet by mouth twice * Patient taking differently: Take 10 mg by mouth three justino* USTEKINUMAB 90 MG/ML SUBCUTAN* Inject subcutaneously. TRANSCUTANEOUS ELECTRICAL NER* 1 Device as needed. COMPOUNDED PRESCRIPTION Order: cock up splints (2) D* CHOLECALCIFEROL (VITAMIN D3) * Take 5,000 Units by mouth onc* CYANOCOBALAMIN (VIT B-12) 1,0* Take 1,000 mcg by mouth once * DOCUSATE SODIUM 250 MG CAPSULE Take 250 mg by mouth once sudhakar* Progress Notes: Kassidy Acevedo (Pt) 03/06/2018 11:57 AM Signed Episode Visit Count: 2 Therapist That Will Oversee The Plan Of Care: Kassidy Acevedo Start of Care Date: 03/03/18 Onset Date: 03/03/14 REHABILITATION AND SPORTS THERAPY PHYSICAL THERAPY TREATMENT NOTE ASSESSMENT: Gay Coleman demonstrated good form with exs and able to complete with no antalgic movements. Able to advance ex program today The patient will continue to benefit from continued skilled physical therapy for further progression of exs PLAN FOR NEXT VISIT: Pt modify and progress exs as able Plan of care changed to 1x every other week in light of insurance coverage of 10 visits per year SUBJECTIVE: Pt notes that she has been doing exs but wants to find a better chair. Pain Score: 10/10 Pain Location: Low Back/Lumbar Spine - Left;Low Back/Lumbar Spine - Right Description: Aching;Stabbing Frequency: Continuous Post Treatment Pain Score: No Change Pain Location: Low Back/Lumbar Spine - Left Post Treatment Pain Description: Aching OBJECTIVE MEASURES WITH LEVEL OF FUNCTION: none taken TREATMENT: Therapeutic Exercise: 1: iso abs with marches 3x10 2: bridges with arm support 3x10 3: purple rep band trunk flexion 2x15 4: iso abd. with marches hooklying 2x10 5: core stabilization with perturbation purple rep band front and sides 3x10 6: scifit stepper seat 11 work 1 for 4 minl. 7: standing iso abs with alternate shld extension with orange rep band 8: blue rep band hip abduction seated 3x10 9: sit to stand from high mat table 1x10 Skilled Intervention: Patient was educated in proper exercise technique and purpose for exercises. Skilled judgment was provided in selection of appropriate interventions. Provided written instruction for home exercise program to facilitate proper performance and compliance. Correct performance of therapeutic exercises was facilitated with verbal and visual cuing. Billing: [facility]: Therapeutic Exercise ([id number]): 1:1 time: 45 minutes (3 units: 38-52 mins) Total time: 45 minutes Kassidy Acevedo PT PROGRESS Observed: 03/04/2018 Status: COMPLETED Source: [place] 10:59 AM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 to her during her surgeries/recovery. She stated some significant steps on reducing binge eating (not eating bun, eating more healthy meals, reducing extra meal). She submitted the letter to her python django developer that I gave her verifying her diagnosis and treatment for her disability application, she stated. Mental Status: Mood: neutral Affect: mood-congruent Thoughts/Associations:goal directed Suicidal/Homicidal Ideation: None expressed or evidenced Other Observations: None Therapy Focus Mood/affect regulation MEDICATIONS: Per medical record: Current Outpatient Prescriptions: buPROPion SR (ZYBAN SR; WELLBUTRIN SR) 150 mg 12 hr tablet Take 1 tablet by mouth twice daily. meclizine (ANTIVERT) 12.5 mg tab Take 1-2 tablets by mouth twice daily as needed (dizziness). fluconazole (DIFLUCAN) 150 mg tablet Take 150 mg by mouth one time only. diazePAM (VALIUM) 2 mg tablet Take 2 mg by mouth every 6 hours as needed. ferrous sulfate 325 mg (65 mg iron) tablet Take 1 tablet by mouth daily with breakfast. fluticasone-salmeterol (ADVAIR DISKUS) 250-50 mcg/dose dsdv Inhale 1 Puff as instructed twice daily. Rinse and gargle mouth after use with water. albuterol HFA (VENTOLIN HFA) 90 mcg/actuation inhaler Inhale 2 Puffs as instructed every 4 hours as needed for Wheezing/Shortness of Breath. FLUoxetine HCl (PROZAC) 40 mg capsule Take 1 capsule by mouth once daily. linaclotide (LINZESS) 290 mcg cap Take 1 capsule by mouth once daily. mirabegron (MYRBETRIQ) 25 mg Tb24 Take 1 tablet by mouth once daily. ixekizumab (TALTZ AUTOINJECTOR, 2 PACK,) 80 mg/mL AutoInjector Inject subcutaneously. albuterol (PROVENTIL) 2.5 mg /3 mL (0.083 %) nebulizer solution Use 3 mL via nebulizer every 4 hours as needed for Wheezing/Shortness of Breath. Use over 5-15minutes. diclofenac, EC, (VOLTAREN) 75 mg EC tablet Take 1 tablet by mouth twice daily. For pain/inflammation. Take with food. PER DR. MALONE diclofenac sodium (VOLTAREN) 1 % topical gel Apply to affected area four times daily. PER DR. MALONE pregabalin (LYRICA) 75 mg capsule Take 75 mg by mouth three times daily. estrogens conjugated (PREMARIN) 0.9 mg tablet Take 1 tablet by mouth once daily. mirtazapine (REMERON) 30 mg tablet Take 1 tablet by mouth daily at bedtime. (Patient taking differently: Take 15 mg by mouth daily at bedtime. 1 1/2 at bedtime ) baclofen (LIORESAL) 10 mg tablet Take 1 tablet by mouth twice daily. (Patient taking differently: Take 10 mg by mouth three times daily.) Ustekinumab (STELARA) 90 mg/mL syrg Inject subcutaneously. TENS Units malika 1 Device as needed. COMPOUNDED PRESCRIPTION Order: cock up splints (2)Dx: carpal tunnel syndrome bilateral Cholecalciferol, Vitamin D3, 5,000 unit tab Take 5,000 Units by mouth once daily. cyanocobalamin (VITAMIN B-12) 1,000 mcg tab Take 1,000 mcg by mouth once daily. Docusate Sodium 250 mg capsule Take 250 mg by mouth once daily. No current facility-administered medications for this visit. Psychiatric Medication Issues: No change from previous appointment DIAGNOSIS: Diagnosis: Major Depressive Disorder, Recurrent, Mild Binge Eating Disorder Treatment Modality/Interventions: Cognitive Behavioral TREATMENT ASSESSMENT/PROGRESS: Stable TREATMENT PLAN/GOALS: Continue in therapy focusing on affect management. 1) Using coping skills to help manage pain and reduce emotional and binge eating 2) Use CBT and and DBT skills for coping with triggering social interactions. Next appointment: 2 weeks Ehsan Vasquez PSYD PROGRESS Observed: 02/12/2018 Status: COMPLETED Source: [place] 3:07 PM [facility] REPOSITORY HNO ID: [id number] Author: Ehsan Sterling Service: (none) Author Type: Psychologist Type: Progress Notes Filed: 02/18/2018 6:28 PM Note Text: [facility] Progress Note Gay Coleman 02/11/2018 [id number] Provider: Ehsan Vasquez PSYD CPT Code: 07871 Psychotherapy 38-52 minutes Time: Approximately 45 minutes was spent in therapy. Parties Present: Patient Patient Presentation/Concerns: Queenie requested a note verifying the observations about her pain in session (difficulty getting up etc). I indicated that I could write about direct observations for her in a letter format. I will complete by tomorrow. Queenie stated being upset that none of her friends or family have reached out to her or inquired about her pain/recovery from surgery. This led to two days of depression, crying, not wanting to leave the house, and binge eating. Discussed and printed out positive statements for her to focus on. This has been helpful in the past. She lost four pounds last week per [employer] scale. Mental Status: Mood: depressed Affect: mood-congruent and sad Thoughts/Associations:goal directed Suicidal/Homicidal Ideation: None expressed or evidenced Other Observations: tearful Therapy Focus Mood/affect regulation MEDICATIONS: Per medical record: Current Outpatient Prescriptions: buPROPion SR (ZYBAN SR; WELLBUTRIN SR) 150 mg 12 hr tablet Take 1 tablet by mouth twice daily. meclizine (ANTIVERT) 12.5 mg tab Take 1-2 tablets by mouth twice daily as needed (dizziness). fluconazole (DIFLUCAN) 150 mg tablet Take 150 mg by mouth one time only. diazePAM (VALIUM) 2 mg tablet Take 2 mg by mouth every 6 hours as needed. ferrous sulfate 325 mg (65 mg iron) tablet Take 1 tablet by mouth daily with breakfast. fluticasone-salmeterol (ADVAIR DISKUS) 250-50 mcg/dose dsdv Inhale 1 Puff as instructed twice daily. Rinse and gargle mouth after use with water. albuterol HFA (VENTOLIN HFA) 90 mcg/actuation inhaler Inhale 2 Puffs as instructed every 4 hours as needed for Wheezing/Shortness of Breath. FLUoxetine HCl (PROZAC) 40 mg capsule Take 1 capsule by mouth once daily. linaclotide (LINZESS) 290 mcg cap Take 1 capsule by mouth once daily. mirabegron (MYRBETRIQ) 25 mg Tb24 Take 1 tablet by mouth once daily. ixekizumab (TALTZ AUTOINJECTOR, 2 PACK,) 80 mg/mL AutoInjector Inject subcutaneously. albuterol (PROVENTIL) 2.5 mg /3 mL (0.083 %) nebulizer solution Use 3 mL via nebulizer every 4 hours as needed for Wheezing/Shortness of Breath. Use over 5-15minutes. diclofenac, EC, (VOLTAREN) 75 mg EC tablet Take 1 tablet by mouth twice daily. For pain/inflammation. Take with food. PER DR. MALONE diclofenac sodium (VOLTAREN) 1 % topical gel Apply to affected area four times daily. PER DR. MALONE pregabalin (LYRICA) 75 mg capsule Take 75 mg by mouth three times daily. estrogens conjugated (PREMARIN) 0.9 mg tablet Take 1 tablet by mouth once daily. mirtazapine (REMERON) 30 mg tablet Take 1 tablet by mouth daily at bedtime. (Patient taking differently: Take 15 mg by mouth daily at bedtime. 1 1/2 at bedtime ) baclofen (LIORESAL) 10 mg tablet Take 1 tablet by mouth twice daily. (Patient taking differently: Take 10 mg by mouth three times daily.) Ustekinumab (STELARA) 90 mg/mL syrg Inject subcutaneously. TENS Units malika 1 Device as needed. COMPOUNDED PRESCRIPTION Order: cock up splints (2)Dx: carpal tunnel syndrome bilateral Cholecalciferol, Vitamin D3, 5,000 unit tab Take 5,000 Units by mouth once daily. cyanocobalamin (VITAMIN B-12) 1,000 mcg tab Take 1,000 mcg by mouth once daily. Docusate Sodium 250 mg capsule Take 250 mg by mouth once daily. No current facility-administered medications for this visit. Psychiatric Medication Issues: No change from previous appointment DIAGNOSIS: Depression, recurrent Binge Eating Disorder Treatment Modality/Interventions: Cognitive Behavioral TREATMENT ASSESSMENT/PROGRESS: Stable TREATMENT PLAN/GOALS: Continue in therapy focusing on affect management. 1) Continue to utilize the food plan from the dietitian/hospital program. These food suggestions have been helpful to her, she stated. 2) I printed out a list of mantras and sayings. These were helpful in the past to refocus her mind/let go of negative thoughts. Next appointment: 2 weeks Ehsan Vasquez PSYD PROGRESS Observed: 01/27/2018 Status: COMPLETED Source: [place] 12:05 PM [facility] REPOSITORY HNO ID: [id number] Author: Ehsan Sterling Service: (none) Author Type: Psychologist Type: Progress Notes Filed: 02/13/2018 12:51 PM Note Text: [facility] Progress Note Gay Coleman 01/27/2018 [id number] Provider: Ehsan Vasquez PSYD CPT Code: 28713 Psychotherapy 38-52 minutes Time: Approximately 45 minutes was spent in therapy. Parties Present: Patient Patient Presentation/Concerns: Queenie has great difficulty getting up and down from the couch, holding onto the arm rest to push herself up. Today, she stated feeling dizzy while getting up. Also, she can only cross her leg with the assistance of her arm. She states feeling sad that her family and friends do not reach out to her to inquire about her health or recovery. This is upsetting and triggers feeling defective. She spoke about feeling very depressed this weekend, prompted by family issues. She stated that she was upset for two days, difficulty letting it go. Discussed CBT ways to look at the situation/let go of hurt. The pain and family issues led to additional binge eating/sneaking in a night meal. Mental Status: Mood: depressed Affect: mood-congruent Thoughts/Associations:goal directed Suicidal/Homicidal Ideation: None expressed or evidenced Other Observations: None Therapy Focus Mood/affect regulation MEDICATIONS: Per medical record: Current Outpatient Prescriptions: meclizine (ANTIVERT) 12.5 mg tab Take 1-2 tablets by mouth twice daily as needed (dizziness). fluconazole (DIFLUCAN) 150 mg tablet Take 150 mg by mouth one time only. diazePAM (VALIUM) 2 mg tablet Take 2 mg by mouth every 6 hours as needed. ferrous sulfate 325 mg (65 mg iron) tablet Take 1 tablet by mouth daily with breakfast. fluticasone-salmeterol (ADVAIR DISKUS) 250-50 mcg/dose dsdv Inhale 1 Puff as instructed twice daily. Rinse and gargle mouth after use with water. albuterol HFA (VENTOLIN HFA) 90 mcg/actuation inhaler Inhale 2 Puffs as instructed every 4 hours as needed for Wheezing/Shortness of Breath. FLUoxetine HCl (PROZAC) 40 mg capsule Take 1 capsule by mouth once daily. linaclotide (LINZESS) 290 mcg cap Take 1 capsule by mouth once daily. mirabegron (MYRBETRIQ) 25 mg Tb24 Take 1 tablet by mouth once daily. buPROPion SR (ZYBAN SR; WELLBUTRIN SR) 150 mg 12 hr tablet TAKE ONE TABLET BY MOUTH TWICE DAILY ixekizumab (TALTZ AUTOINJECTOR, 2 PACK,) 80 mg/mL AutoInjector Inject subcutaneously. albuterol (PROVENTIL) 2.5 mg /3 mL (0.083 %) nebulizer solution Use 3 mL via nebulizer every 4 hours as needed for Wheezing/Shortness of Breath. Use over 5-15minutes. diclofenac, EC, (VOLTAREN) 75 mg EC tablet Take 1 tablet by mouth twice daily. For pain/inflammation. Take with food. PER DR. MALONE diclofenac sodium (VOLTAREN) 1 % topical gel Apply to affected area four times daily. PER DR. MALONE pregabalin (LYRICA) 75 mg capsule Take 75 mg by mouth three times daily. estrogens conjugated (PREMARIN) 0.9 mg tablet Take 1 tablet by mouth once daily. mirtazapine (REMERON) 30 mg tablet Take 1 tablet by mouth daily at bedtime. (Patient taking differently: Take 15 mg by mouth daily at bedtime. 1 1/2 at bedtime ) baclofen (LIORESAL) 10 mg tablet Take 1 tablet by mouth twice daily. (Patient taking differently: Take 10 mg by mouth three times daily.) Ustekinumab (STELARA) 90 mg/mL syrg Inject subcutaneously. TENS Units malika 1 Device as needed. COMPOUNDED PRESCRIPTION Order: cock up splints (2)Dx: carpal tunnel syndrome bilateral Cholecalciferol, Vitamin D3, 5,000 unit tab Take 5,000 Units by mouth once daily. cyanocobalamin (VITAMIN B-12) 1,000 mcg tab Take 1,000 mcg by mouth once daily. Docusate Sodium 250 mg capsule Take 250 mg by mouth once daily. No current facility-administered medications for this visit. Psychiatric Medication Issues: No change from previous appointment DIAGNOSIS: Depression, recurrent Treatment Modality/Interventions: Cognitive Behavioral TREATMENT ASSESSMENT/PROGRESS: Stable TREATMENT PLAN/GOALS: Continue in therapy focusing on affect management. Utilize mindful eating skills Utlize DBT and CBT for coping with pain and depression Next appointment: 2 weeks Ehsan Vasquez PSYD PLASTIC SURGERY Observed: 01/25/2018 Status: F Source: [place] VISIT REPORT 10:46 PM [facility] REPOSITORY [facility] [address] [place] [address] OFFICE VISIT Date of Service: 12/26/17 MR#: [id number] Acct: [id number] Name: GAY COLEMAN Rep #: [id number] : 1965 Provider: Bonilla Alvarez MD Age/Sex: 52/F Location: [facility] Status: Signed Intake Vital Signs12/26/17 Height 5 ft 7 in 12/26/17 Weight: 261 lb 8 oz Intake Visit Reasons: postop surgery 11/27/17 and 09/23/17 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 Accompanied by: None Is patient in pain?: Yes (BACK OF NECK - PAIN IS BURNING AND STABBING) Pain scale (1-10): 6 Allergies nabumetone Allergy (Verified 12/26/17 09:44) Hives thimerosal Allergy (Verified 12/26/17 09:44) Other acetaminophen [From Percocet] Adverse Reaction (Verified 12/26/17 09:44) Other naproxen [From Naprosyn] Adverse Reaction (Verified 12/26/17 09:44) Other oxycodone HCl [From Percocet] Adverse Reaction (Verified 12/26/17 09:44) Other Medications Albuterol Aerosols [Ventolin Aerosols] 2.5 mg INHALATION Q2H PRN PRN 09/22/17 [History Confirmed 12/26/17] Albuterol Inhaler [Ventolin Hfa] 2 puff INHALATION Q4H PRN PRN 09/22/17 [History Confirmed 12/26/17] Baclofen [Lioresal] 10 mg PO TID 09/22/17 [History Confirmed 12/26/17] Calcium Carbonate/Vitamin D3 [Calcium 500-Vit D3 200 Tablet] 1 ea PO DAILY 09/22/17 [History Confirmed 12/26/17] Diclofenac Sodium 100 gm TP 4X/DAY 09/22/17 [History Confirmed 12/26/17] Diclofenac [Voltaren] 75 mg PO BIDCM 09/22/17 [History Confirmed 12/26/17] Econazole [Spectazole] 1 applic TOPICAL DAILY 09/22/17 [History Confirmed 12/26/17] Estrogens, Conjugated [Premarin] 0.9 mg PO DAILY 09/22/17 [History Confirmed 12/26/17] Fluoxetine [Prozac] 40 mg PO DAILY 09/22/17 [History Confirmed 12/26/17] Linaclotide [Linzess] 290 mcg PO DAILY 09/22/17 [History Confirmed 12/26/17] Mirabegron [Myrbetriq] 25 mg PO DAILY 09/22/17 [History Confirmed 12/26/17] Mirtazapine [Remeron] 22 mg PO QHS 09/22/17 [History Confirmed 12/26/17] Pregabalin [Lyrica] 50 mg PO TID 09/22/17 [History Confirmed 12/26/17] Pyridoxine HCl [Vitamin B-6] 100 mg PO DAILY 09/22/17 [History Confirmed 12/26/17] buPROPion SR [Wellbutrin SR (150mg tablets)] 150 mg PO BID 09/22/17 [History Confirmed 12/26/17] Fluticasone/Salmeterol [Advair 250/50 Mcg Diskus] 1 puff INHALATION BID 11/26/17 [History Confirmed 12/26/17] Albuterol Aerosols [Ventolin Aerosols] 2.5 mg INHALATION Q6HWA.RT vial.neb. 11/29/17 [Rx Confirmed 12/26/17] Budesonide Aerosol [Pulmicort Respules] 0.5 mg INHALATION Q12H.RT ampul.neb. 11/29/17 [Rx Confirmed 12/26/17] Diazepam [Valium] 5 mg PO 4X/DAY PRN PRN 7 Days #30 tab 11/29/17 [Rx Confirmed 12/26/17] Docusate Sodium [Colace] 100 mg PO BID cap 11/29/17 [Rx Confirmed 12/26/17] HYDROmorphone tablet [Dilaudid] 2 - 4 mg PO 4X/DAY PRN PRN 7 Days #60 tab 11/29/17 [Rx Confirmed 12/26/17] Iron Polysaccharide Complex [Ferrex 150] 150 mg PO DAILYCM #30 cap 11/29/17 [Rx Confirmed 12/26/17] Iron Polysaccharide Complex [Ferrex 150] 150 mg PO DAILYCM #30 cap 11/29/17 [Rx Confirmed 12/26/17] Lactobacillus Combo No.11 [Probiotic] 1 ea PO DAILY #60 cap.sprink 11/29/17 [Rx Confirmed 12/26/17] hydrOXYzine tablet [Atarax] 10 mg PO TID PRN PRN #60 tab 11/29/17 [Rx Confirmed 12/26/17] proMETHazine tablet [Phenergan tablet] 25 mg PO 4X/DAY PRN PRN #30 tab 11/29/17 [Rx Confirmed 12/26/17] diazepam 5 mg tablet See Label Instructions PO .4x/day PRN #30 tab 01/25/18 [Rx Confirmed 01/25/18] hydromorphone 2 mg tablet See Label Instructions PO .4x/day PRN #50 tab 01/25/18 [Rx Confirmed 01/25/18] hydroxyzine HCl 25 mg tablet 25 mg PO TID PRN #40 tab 01/25/18 [Rx Confirmed 01/25/18] Patient : No PFSH Medical History Lipoma of back (Chronic) Postoperative seroma of subcutaneous tissue after dermatologic procedure (Acute) Arthritis (Acute) Asthma (Acute) BREAST LUMP OR CYST (Acute) Bloating (Acute) Carpal tunnel syndrome (Acute) Cataract (Acute) Depression (Acute) GASTROINTESTIONAL PROBLEMS (Acute) Hearing problem (Acute) History of migraine headaches (Acute) Hives (Acute) IBS (irritable bowel syndrome) (Acute) LIPOMA UPPER BACK/POSTERIOR NECK (Acute) Leg weakness (Acute) Mass in neck (Acute) OAB (overactive bladder) (Acute) Osteoarthritis (Acute) Pneumonia (Acute) Polycystic ovary (Acute) Psoriasis (Acute) Recurrent infections (Acute) SPINAL STENOSIS - MULTIPLE BACK ISSUES (Acute) Seasonal allergies (Acute) Vision problems (Acute) Surgical History ADENOIDS AND TONSILS 1974 (Acute) CATARACT L AND R, TORIC LENS REPLACEMENT 2016 (Acute) COMPLETE HYSTERECTOMY WITH BSO 2014 (Acute) Deviated septum (Acute) EXCISION 8 CM PAINFUL SOFT TISSUE MASS (Acute) H/O bilateral breast reduction surgery (Acute 2012) RADIOFRQUENSY ABLATION 2017 (Acute) Family History Father Hypertension Mother Arthritis Hypertension Cancer Brother Alcohol abuse Aunt Diabetes Grandfather Alcohol abuse Grandfather Psychiatric care Cancer CVA (cerebral vascular accident) Grandmother Alcohol abuse Grandmother Arthritis Depression Other Family history of basal cell carcinoma Family history of skin cancer Social History Smoking Status: Never smoker alcohol intake: never substance use type: does not use what type of physical activity do you participate in: walking, swimming seatbelt use: always do you feel safe at home: Yes additional social history: SUN EXPOSURE: FREQUENTLY HPI postop surgery 11/27/17 and 09/23/17: Details: Postop visit from her recent surgery on November 27, 2017 where she underwent surgical preparation upper back/posterior neck with incision and drainage and excisional debridement infected hematoma (66 cm2). Postop visit from her surgery on September 23, 2017 where she underwent excision 8 cm painful soft tissue mass upper back/posterior neck. Comes in today with complaints of pain in the back wound along with some itching. Some periwound irritation probably from the VAC drape. The VAC has been stopped and she has been using Silver dressing changes daily. Mild swelling still present. Patient denies fever. The upper back wound is stable with some granulation tissue present. No evidence of infection. Continue the Silver dressings daily. She has finished the Levaquin from the surgery. Operative culture was negative. A preop culture in 10/19 showed MRSE which was sensitive to the Levaquin. She is continuing the Diflucan for the periwound rash, most likely fungal. Her Hgb in the hospital was 9.9. She is getting Fe supplementation. Her Prealbumin in the hospital was 22.4. She takes nutritional supplementation with protein to help the healing process. [facility]. Renewed her Dilaudid for pain (50 tabs) and Valium for spasm (30 tabs). Wrote script for Hydroxyzine for itching (40 tabs) and a refill. PAST MEDICAL HISTORY: seasonal allergies arthritis asthma Bladder - OAB breast lump or cyst cataract carpal tunnel syndrome depression gastrointestinal problems headaches/migraines hearing problems hives recurrent infections IBS osteoarthritis pneumonia polycystic ovary vision problems psoriasis bloating mass on neck spinal stenosis - multiple back issues leg weakness lipoma upper back/posterior neck postop infected seroma upper back/posterior neck PAST SURGICAL HISTORY: deviated septum adenoids, tonsils 1975 bilateral breast reduction 2013 complete hysterectomy with BSO 2014 holes drilled in sinus turbinates 2015 bilateral carpal tunnel 2016 cataract L AND R, l toric lens replacement 2016 radiofrequency ablation 2017 excision 8 cm painful soft tissue mass upper back/posterior neck - 09/23/17 surgical preparation upper back/posterior neck with incision and drainage and excisional debridement infected hematoma (66 cm2) - 11/27/17 FAMILY HISTORY: positive for skin cancer severe allergies Father (biol.) - Has Family History of Hypertension Mother (biol.) - Has Family History of Arthritis Mother (biol.) - Has Family History of Hypertension Mother (biol.) - Has Family History of Other Cancer PGF - Has Family History of Alcoholism PGM - Has Family History of Alcoholism MGF - Has Family History of Depression MGF - Has Family History of Psychiatric Care MGF - Has Family History of Other Cancer MGM - Has Family History of Osteoporosis MGF - Has Family History of Stroke/CVA Aunt - Has Family History of Diabetes Brother (full) - Has Family History of Alcoholism SOCIAL HISTORY: patient does not smoke. patient does not drink alcohol. Assessment AND Plan Problems 1. Open wound of back wall of thorax without penetration into thoracic cavity S21.209A 2. Postoperative hematoma of subcutaneous tissue following dermatologic procedure L76.31 3. Complication, postoperative infection T81.4XXA 4. Lipoma of back D17.1 5. Family history of skin cancer Z80.8 Medications New: Coding Level of Care Code Global Post Op Diagnoses Open wound of back wall of thorax without penetration into thoracic cavity S21.209A Postoperative hematoma of subcutaneous tissue following dermatologic procedure L76.31 Complication, postoperative infection T81.4XXA Lipoma of back D17.1 Family history of skin cancer Z80.8 01/25/186 <Electronically signed by Bonilla Alvarez MD> Date Bonilla Alvarez MD Cosigner Signature: Date (if applicable) CC: PROGRESS Observed: 01/21/2018 Status: COMPLETED Source: [place] 10:58 AM [facility] REPOSITORY HNO ID: [id number] Author: Ehsan Sterling Service: (none) Author Type: Psychologist Type: Progress Notes Filed: 01/29/2018 1:48 PM Note Text: [facility] Progress Note Gay Coleman 01/21/2018 [id number] Provider: Ehsan Vasquez PSYD CPT Code: 12799 Psychotherapy 38-52 minutes Time: Approximately 45 minutes was spent in therapy. Parties Present: Patient Patient Presentation/Concerns: Queenie indicated that she started the [facility] program at the [facility]. She brought in the sheet that outline her meal plan/foods. She stated starting off well and then not filling out the rest of the sheets. We discussed stages of change. Queenie also talked about her urge and cravings for food in terms of an addiction. We discussed abstinence from those foods. She indicated struggling with accepting her feelings as she was often told as a child to shut down her feelings. She appreciates when others validate her feelings. Mental Status: Mood: neutral Affect: mood-congruent Thoughts/Associations:goal directed Suicidal/Homicidal Ideation: None expressed or evidenced Other Observations: None Therapy Focus Mood/affect regulation MEDICATIONS: Per medical record: Current Outpatient Prescriptions: meclizine (ANTIVERT) 12.5 mg tab Take 1-2 tablets by mouth twice daily as needed (dizziness). fluconazole (DIFLUCAN) 150 mg tablet Take 150 mg by mouth one time only. diazePAM (VALIUM) 2 mg tablet Take 2 mg by mouth every 6 hours as needed. ferrous sulfate 325 mg (65 mg iron) tablet Take 1 tablet by mouth daily with breakfast. fluticasone-salmeterol (ADVAIR DISKUS) 250-50 mcg/dose dsdv Inhale 1 Puff as instructed twice daily. Rinse and gargle mouth after use with water. albuterol HFA (VENTOLIN HFA) 90 mcg/actuation inhaler Inhale 2 Puffs as instructed every 4 hours as needed for Wheezing/Shortness of Breath. FLUoxetine HCl (PROZAC) 40 mg capsule Take 1 capsule by mouth once daily. linaclotide (LINZESS) 290 mcg cap Take 1 capsule by mouth once daily. mirabegron (MYRBETRIQ) 25 mg Tb24 Take 1 tablet by mouth once daily. buPROPion SR (ZYBAN SR; WELLBUTRIN SR) 150 mg 12 hr tablet TAKE ONE TABLET BY MOUTH TWICE DAILY ixekizumab (TALTZ AUTOINJECTOR, 2 PACK,) 80 mg/mL AutoInjector Inject subcutaneously. albuterol (PROVENTIL) 2.5 mg /3 mL (0.083 %) nebulizer solution Use 3 mL via nebulizer every 4 hours as needed for Wheezing/Shortness of Breath. Use over 5-15minutes. diclofenac, EC, (VOLTAREN) 75 mg EC tablet Take 1 tablet by mouth twice daily. For pain/inflammation. Take with food. PER DR. MALONE diclofenac sodium (VOLTAREN) 1 % topical gel Apply to affected area four times daily. PER DR. MALONE pregabalin (LYRICA) 75 mg capsule Take 75 mg by mouth three times daily. estrogens conjugated (PREMARIN) 0.9 mg tablet Take 1 tablet by mouth once daily. mirtazapine (REMERON) 30 mg tablet Take 1 tablet by mouth daily at bedtime. (Patient taking differently: Take 15 mg by mouth daily at bedtime. 1 1/2 at bedtime ) baclofen (LIORESAL) 10 mg tablet Take 1 tablet by mouth twice daily. (Patient taking differently: Take 10 mg by mouth three times daily.) Ustekinumab (STELARA) 90 mg/mL syrg Inject subcutaneously. TENS Units malika 1 Device as needed. COMPOUNDED PRESCRIPTION Order: cock up splints (2)Dx: carpal tunnel syndrome bilateral Cholecalciferol, Vitamin D3, 5,000 unit tab Take 5,000 Units by mouth once daily. cyanocobalamin (VITAMIN B-12) 1,000 mcg tab Take 1,000 mcg by mouth once daily. Docusate Sodium 250 mg capsule Take 250 mg by mouth once daily. No current facility-administered medications for this visit. Psychiatric Medication Issues: No change from previous appointment DIAGNOSIS: Diagnosis: Major Depressive Disorder, Recurrent, Mild Binge Eating Disorder Treatment Modality/Interventions: Cognitive Behavioral TREATMENT ASSESSMENT/PROGRESS: Stable. States feeling frustrated with herself for difficulty with behavior change. TREATMENT PLAN/GOALS: Continue in therapy focusing on affect management. Next appointment: 2 weeks Ehsan Vasquez PSYD CBC AND DIFFERENTIAL Collected: 01/20/2018 Status: F Source: [place] 11:35 AM [facility] REPOSITORY TYPE CODE TESTS RESULT OUT OF REFERENCE UNITS RANGE LAB WBC 3.70-11.00 k/uL WBC 5.82 LAB RBC 3.90-5.20 m/uL RBC 4.06 LAB HGB 11.5-15.5 g/dL Hemoglobin 11.5 LAB HCT 36.0-46.0 % Hematocrit 39.4 LAB MCV 80.0-100.0 fL MCV 97.0 LAB MCH 26.0-34.0 pG MCH 28.3 LAB MCHC 30.5-36.0 g/dL Low MCHC 29.2 LAB RDWCV 11.5-15.0 % RDW-CV High 16.1 LAB PLTCT 150-400 k/uL Platelet Count 314 LAB MPV 9.0-12.7 fL MPV 10.9 LAB ANEUT % Neut% 61.3 LAB AANEUT 1.45-7.50 k/uL Abs Neut 3.55 LAB ALYMP % Lymph% 27.3 LAB AALYMP 1.00-4.00 k/uL Abs Lymph 1.59 LAB AMONO % [place]% 8.8 LAB AAMONO <0.87 k/uL Abs [place] 0.51 LAB AEOS % Eosin% 1.7 LAB AAEOS <0.46 k/uL Abs Eosin 0.10 LAB ABASO % Baso% 0.9 LAB AABASO <0.11 k/uL Abs Baso 0.05 LAB AUNRBC 0 /100 WBC NRBCs 0.0 LAB ABNRBC <0.01 k/uL Absolute nRBC <0.01 LAB DTYP DTYPE Auto Diff Performed By: #### CBCDIF, CMP, TSH, FT4, T3, VITD #### [facility] [address] [place], [place] [address] COMP METABOLIC PANEL Collected: 01/20/2018 Status: F Source: [place] 11:35 AM [facility] REPOSITORY TYPE CODE TESTS RESULT OUT OF REFERENCE UNITS RANGE LAB TP 6.3-8.0 g/dL Protein, Total 7.1 LAB ALB 3.9-4.9 g/dL Albumin 4.0 LAB CA 8.5-10.2 mg/dL Calcium, Total 9.3 LAB TBIL 0.2-1.3 mg/dL Bilirubin, Total 0.3 LAB ALKP 32-117 U/L Alkaline Phosphatase 77 LAB AST 13-35 U/L AST 30 LAB GLU 74-99 mg/dL Glucose 81 Result Comment: The [place] Diabetes Association (ADA) provides guidance for cutoff values for fasting glucose and random glucose. The ADA defines fasting as no caloric intake for at least 8 hours. Fas ting plasma glucose results between 100 to 125 mg/dL indicate increased risk for diabetes (prediabetes). Fasting plasma glucose results greater than or equal to 126 mg/dL meet the criteria for diagnosis of diabetes. In the absence of unequivocal hyperglycemia, results should be confirmed by repeat testing. In a patient with classic symptoms of hyperglycemia or hyperglycemic crisis, random plasma glucose results greater than or equal to 200 mg/dL meet the criteria for diagnosis of diabetes. Reference: Standards of Medical Care in Diabetes 2016, [place] [employer] Association. Diabetes Care. 2016.39(Suppl 1). LAB BUN 7-21 mg/dL BUN 19 LAB CRET 0.58-0.96 mg/dL Creatinine 0.86 LAB NA 136-144 mmol/L Sodium 143 LAB K 3.7-5.1 mmol/L Potassium 4.6 LAB CL 97-105 mmol/L Chloride 104 LAB CO2 22-30 mmol/L CO2 23 LAB AGAP 9-18 mmol/L Anion Gap 16 LAB ALT 7-38 U/L ALT 18 LAB GFRAA eGFR- Amer. >60 LAB GFRNAA . eGFR-All Other Races >60 Result Comment: eGFR (Estimated GFR) Units of measure: mL/min/1.73 meters squared eGFR is derived from the reexpressed MDRD Study equation using the following parameters: serum creatinine, age, gender and race. The creatinine assay has been calibrated to be traceable to IDMS. An eGFR <60 mL/min/1.73m2 for >3 months is consistent with chronic kidney disease. Refer to KDOQI guidelines for clinical interpretation. In patients with unstable renal function, e.g. those with acute kidney injury, the eGFR may not accurately reflect actual GFR. Performed By: #### CBCDIF, CMP, TSH, FT4, T3, VITD #### [facility] [employer] [facility] [place] [address] TSH Collected: 01/20/2018 Status: F Source: [place] 11:35 AM [facility] REPOSITORY TYPE CODE TESTS RESULT OUT OF RANGE REFERENCE UNITS LAB TSH 0.400-5.500 uU/mL TSH 2.000 Performed By: #### CBCDIF, CMP, TSH, FT4, T3, VITD #### [place] [address] FREE T4 Collected: 01/20/2018 Status: F Source: [place] 11:35 AM [facility] REPOSITORY TYPE CODE TESTS RESULT OUT OF RANGE REFERENCE UNITS LAB FT4 0.9-1.7 ng/dL Free T4 1.2 Performed By: #### CBCDIF, CMP, TSH, FT4, T3, VITD #### [place] [id number] T3 Collected: 01/20/2018 Status: F Source: [facility] 11:35 AM [facility] REPOSITORY TYPE CODE TESTS RESULT OUT OF RANGE REFERENCE UNITS LAB T3 79-165 ng/dL T3 157 Performed By: #### CBCDIF, CMP, TSH, FT4, T3, VITD #### [place] [address] VITAMIN D 25 HYDROXY Collected: 01/20/2018 Status: F Source: [place] 11:35 AM [facility] REPOSITORY TYPE CODE TESTS RESULT OUT OF REFERENCE UNITS RANGE LAB VITD 31.0-80.0 ng/mL Vitamin D 25 38.2 Hydroxy Result Comment: Classification of 25 [place] Vitamin D status: Insufficiency/Moderate Deficiency: < or = 30 ng/mL Sufficiency/Optimal Levels: 31 to 80 ng/mL Toxicity: > 100 ng/mL Test performed by chemiluminescent immunoassay. Performed By: #### CBCDIF, CMP, TSH, FT4, T3, VITD #### [place] [address] PROGRESS Observed: 01/20/2018 Status: COMPLETED Source: [place] 10:10 [facility] REPOSITORY HNO ID: [id number] Author: Kay Maravilla (Therapeutic Massage Technician) CELESTINA Villalobos.[facility] Service: (none) Author Type: Nurse Practitioner Type: Progress Notes Filed: 01/20/2018 11:22 AM Note Text: HPI/CC: Gay Coleman is a 52 year old female who presents with concern of room was spinning and dizzy sensation. Started suddenly for a week. This is new onset. Associated symptoms include nausea and vomting. Denies eyes jumping, palpitations, syncope, ear pain, sore throat, diarrhea, urinary symptoms and muscle or joint aches, tinnitus. Symptoms are intermittent and last 20-30 seconds and made worse by keeping eyes open. Symptoms are alleviated by holding still and closing eyes. Recent events include no obvious precipitating event/injury.. Treatments tried include closing eyes with complete relief of symptoms. REVIEW OF SYSTEMS GENERAL: No weight loss, malaise or fevers HEENT: Negative for frequent or significant headaches, No changes in hearing or vision, no nose bleeds or other nasal problems. Hearing loss and hearing aide in left NEURO: No history of headaches, syncope, paralysis, seizures or tremors Reviewed PMHx, PSHx, social Hx, medications and allergies. PHYSICAL EXAMINATION: BP 114/80 Pulse 76 Resp 16 Wt 119.3 kg (263 lb) LMP 03/02/2015 BMI 41.19 kg/m2 Orthostatic Vitals BP Pulse Position Comment Time Date 110/80 --- Supine --- 10:44 AM 01/20/2018 118/74 --- Sitting --- 10:44 AM 01/20/2018 120/82 --- Standing --- 10:44 AM 01/20/2018 General appearance: Well appearing, alert, in no acute distress, well-hydrated, well nourished., Obese Head: Normocephalic, no masses, lesions, tenderness or abnormalities Eyes: Anicteric sclera. Pupils are equally round and reactive to light. Extraocular movements are intact. Ears: External ears normal, canals clear, TM's normal- left hearing aid removed by patient for exam Nose/Sinuses: Nares normal, septum midline, mucosa normal, no drainage or sinus tenderness Oropharynx: Lips, mucosa, and tongue normal, teeth and gums normal, oropharynx normal Neck: Supple, no adenopathy; thyroid symmetric, normal size, no bruits Lungs: Lungs clear to auscultation. No wheezing, rhonchi, rales Heart:: S1 and S2 normal, RRR without murmur, gallop, or rubs. No ectopy. ECG SR with SA Musculoskeletal: Spine range of motion normal. Muscular strength intact, No joint swelling, deformity, or tenderness Peripheral pulses: Normal Neuro: Awake, alert and oriented x 3, Cranial nerves II-XII grossly intact, Normal gait and No involuntary motions. ASSESSMENT/PLAN: 1. Dizziness - ICD9: 780.4, ICD10: R42 (primary diagnosis) - CBC + DIFF - COMP METABOLIC PANEL - TSH BLD - T3 BLD - T4 FREE/FREE THYROX - VITAMIN D 25 HYDROXY - ECG COMPLETE W INTERPRETATION - MECLIZINE 12.5 MG TABLET - ECHO - HOLTER MONITOR 48 HOUR 2. Abnormal ECG - ICD9: 794.31, ICD10: R94.31 - MECLIZINE 12.5 MG TABLET - ECHO - HOLTER MONITOR 48 HOUR - f/u in 1 month Kay Villalobos APRN.CNP CNOV Observed: 01/20/2018 Status: COMPLETED Source: [place] 10:00 AM [facility] REPOSITORY Office Visit (FAMPWS) GAY COLEMAN ([id number]) 1965 F Date Time Provider Department 01/20/18 10:00 AM KAY VILLALOBOS (ZANA) FAMPWS During your visit today, we recorded the following information about you: Pulse Respiration Blood pressure Weight 76/minute 16/minute 114/80 119.3 kg Kay Villalobos APRN.CNP, APRN.CNP 01/20/2018 11:22 AM Signed HPI/CC: Gay Coleman is a 52 year old female who presents with concern of ANDquot; room was spinningANDquot; and dizzy sensation. Started suddenly for a week. This is new onset. Associated symptoms include nausea and vomting. Denies eyes jumping, palpitations, syncope, ear pain, sore throat, diarrhea, urinary symptoms and muscle or joint aches, tinnitus. Symptoms are intermittent and last 20-30 seconds and made worse by keeping eyes open. Symptoms are alleviated by holding still and closing eyes. Recent events include no obvious precipitating event/injury.. Treatments tried include closing eyes with complete relief of symptoms. REVIEW OF SYSTEMS GENERAL: No weight loss, malaise or fevers HEENT: Negative for frequent or significant headaches, No changes in hearing or vision, no nose bleeds or other nasal problems. Hearing loss and hearing aide in left NEURO: No history of headaches, syncope, paralysis, seizures or tremors Reviewed PMHx, PSHx, social Hx, medications and allergies. PHYSICAL EXAMINATION: BP 114/80 Pulse 76 Resp 16 Wt 119.3 kg (263 lb) LMP 03/02/2015 BMI 41.19 kg/m2 Orthostatic Vitals BP Pulse Position Comment Time Date 110/80 --- Supine --- 10:44 AM 01/20/2018 118/74 --- Sitting --- 10:44 AM 01/20/2018 120/82 --- Standing --- 10:44 AM 01/20/2018 General appearance: Well appearing, alert, in no acute distress, well-hydrated, well nourished., Obese Head: Normocephalic, no masses, lesions, tenderness or abnormalities Eyes: Anicteric sclera. Pupils are equally round and reactive to light. Extraocular movements are intact. Ears: External ears normal, canals clear, TM's normal- left hearing aid removed by patient for exam Nose/Sinuses: Nares normal, septum midline, mucosa normal, no drainage or sinus tenderness Oropharynx: Lips, mucosa, and tongue normal, teeth and gums normal, oropharynx normal Neck: Supple, no adenopathy; thyroid symmetric, normal size, no bruits Lungs: Lungs clear to auscultation. No wheezing, rhonchi, rales Heart:: S1 and S2 normal, RRR without murmur, gallop, or rubs. No ectopy. ECG SR with SA Musculoskeletal: Spine range of motion normal. Muscular strength intact, No joint swelling, deformity, or tenderness Peripheral pulses: Normal Neuro: Awake, alert and oriented x 3, Cranial nerves II-XII grossly intact, Normal gait and No involuntary motions. ASSESSMENT/PLAN: 1. Dizziness - ICD9: 780.4, ICD10: R42 (primary diagnosis) - CBC + DIFF - COMP METABOLIC PANEL - TSH BLD - T3 BLD - T4 FREE/FREE THYROX - VITAMIN D 25 HYDROXY - ECG COMPLETE W INTERPRETATION - MECLIZINE 12.5 MG TABLET - ECHO - HOLTER MONITOR 48 HOUR 2. Abnormal ECG - ICD9: 794.31, ICD10: R94.31 - MECLIZINE 12.5 MG TABLET - ECHO - HOLTER MONITOR 48 HOUR - f/u in 1 month Kay Villalobos APRN.FINISHER CARD TENDER Referring Provider: SELF [200] Allergies As of Date: 01/20/2018 Noted Allergy Reaction DUST 12/26/2006 NABUMETONE 10/04/2014 8 - GI Upset SEASONAL ALLERGIES 06/19/2015 14 - Other: See Comments SMOKE 12/26/2006 THIMERISOL (THIMEROSAL) 01/09/2016 5 - Intolerance Date Reviewed: 01/20/2018 Reviewed by: Aakash Burton LPN - Fully Assessed Reason for Visit: Dizziness [36] Cmt: started last week; intermittent; feels like room is spinning; 1 episode of vomiting Primary Visit Diagnosis:Dizziness [R42] Other Visit Diagnosis:Abnormal ECG [R94.31] Order(s):CBC + DIFF [SQCBCDIF] Order #: [id number] FUTURE COMP METABOLIC PANEL [SQCMP] Order #: [id number] FUTURE TSH BLD [SQTSH] Order #: [id number] FUTURE T3 BLD [SQT3] Order #: [id number] FUTURE T4 FREE/FREE THYROX [SQFT4] Order #: [id number] FUTURE VITAMIN D 25 HYDROXY [SQVITD] Order #: [id number] FUTURE ECG COMPLETE W INTERPRETATION [ECG01] Order #: [id number] FUTURE meclizine (ANTIVERT) 12.5 mg tabTake 1-2 tablets by mouth twice daily as needed (dizziness).Disp: 30 tabletRfl: 0 ECHO [296055] Order #: [id number]: 1 FUTURE HOLTER MONITOR 48 HOUR [[id number]] Order #: [id number] FUTURE Prescriptions as of 01/20/2018 Sig: FLUCONAZOLE 150 MG TABLET Take 150 mg by mouth one time* DIAZEPAM 2 MG TABLET Take 2 mg by mouth every 6 ho* FERROUS SULFATE 325 MG (65 MG* Take 1 tablet by mouth daily * FLUTICASONE 250 MCG-SALMETERO* Inhale 1 Puff as instructed t* ALBUTEROL SULFATE HFA 90 MCG/* Inhale 2 Puffs as instructed * FLUOXETINE 40 MG CAPSULE Take 1 capsule by mouth once * LINACLOTIDE 290 MCG CAPSULE Take 1 capsule by mouth once * MIRABEGRON ER 25 MG TABLET,EX* Take 1 tablet by mouth once d* BUPROPION HCL SR 150 MG TABLE* TAKE ONE TABLET BY MOUTH TWIC* DICLOFENAC SODIUM 75 MG TABLE* Take 1 tablet by mouth twice * DICLOFENAC 1 % TOPICAL GEL Apply to affected area four * PREGABALIN 75 MG CAPSULE Take 75 mg by mouth three justino* CONJUGATED ESTROGENS 0.9 MG T* Take 1 tablet by mouth once d* MIRTAZAPINE 30 MG TABLET Take 1 tablet by mouth daily * Patient taking differently: Take 15 mg by mouth daily at * BACLOFEN 10 MG TABLET Take 1 tablet by mouth twice * Patient taking differently: Take 10 mg by mouth three justino* TRANSCUTANEOUS ELECTRICAL NER* 1 Device as needed. COMPOUNDED PRESCRIPTION Order: cock up splints (2) D* CHOLECALCIFEROL (VITAMIN D3) * Take 5,000 Units by mouth onc* CYANOCOBALAMIN (VIT B-12) 1,0* Take 1,000 mcg by mouth once * DOCUSATE SODIUM 250 MG CAPSULE Take 250 mg by mouth once sudhakar* MECLIZINE 12.5 MG TABLET Take 1-2 tablets by mouth twi* IXEKIZUMAB 80 MG/ML SUBCUTANE* Inject subcutaneously. ALBUTEROL SULFATE 2.5 MG/3 ML* Use 3 mL via nebulizer every * USTEKINUMAB 90 MG/ML SUBCUTAN* Inject subcutaneously. Problem List As Of Date 01/20/2018 Noted Resolved Migraine without aura [346.1] INVALID FOR*07/28/2017 Dysthymia [F34.1] INVALID FOR* Perimenopausal [N95.1] INVALID FOR*07/28/2017 Breast hypertrophy [N62] INVALID FOR* Bloating [R14.0] Constipation [K59.00] Adnexal mass [N94.9] INVALID FOR*10/31/2016 Flatulence, eructation, and gas pain [R14.3, R1*INVALID FOR*01/26/2015 Unspecified constipation [K59.00] INVALID FOR*01/26/2015 Midline low back pain without sciatica [M54.5] INVALID FOR* Intervertebral disc disorder with radiculopathy*INVALID FOR* DDD (degenerative disc disease), lumbar [M51.36]INVALID FOR* Cervical disc disorder with radiculopathy [M50.*INVALID FOR* DDD (degenerative disc disease), cervical [M50.*INVALID FOR* Carpal tunnel syndrome, bilateral [G56.03] INVALID FOR*07/28/2017 Asthma [J45.909] INVALID FOR*01/20/2018 OLGA (obstructive sleep apnea) [G47.33] INVALID FOR* More... Psoriasis [L40.9] INVALID FOR* OAB (overactive bladder) [N32.81] INVALID FOR* Impaired fasting glucose [R73.01] INVALID FOR* Exercise-induced asthma [J45.990] INVALID FOR* Obesity, Class III, BMI 40-49.9 (morbid obesity*INVALID FOR* Irritable bowel syndrome with constipation [K58*INVALID FOR* ANDREW (generalized anxiety disorder) [F41.1] INVALID FOR* Neck mass [R22.1] INVALID FOR* Prescriptions ordered this encounter Disp Refills Start End MECLIZINE 12.5 MG TABLET 30 t* 0 01/20/2018 Route: ORAL Sig: Take 1-2 tablets by mouth twice daily as needed (dizziness). Classic SmartForms filed during this visit: Extended Vitals Encounter Status:Closed by KAY VILLALOBOS CNP on 01/20/18 PROGRESS Observed: 01/14/2018 Status: COMPLETED Source: [place] 12:57 PM [facility] REPOSITORY HNO ID: [id number] Author: Ehsan Sterling Service: (none) Author Type: Psychologist Type: Progress Notes Filed: 01/22/2018 4:08 PM Note Text: [facility] Progress Note Gay Coleman 01/14/2018 [id number] Provider: Eshan Vasquez PSYD CPT Code: 82573 Psychotherapy 38-52 minutes Time: Approximately 45 minutes was spent in therapy. Parties Present: Patient Patient Presentation/Concerns: Queenie reported that she is still recovering from her surgery. The pain makes it difficult to exercise or make changes to her habits, routines, she stated. She indicated being frustrated by feeling stuck. She reports difficulty changing her behavior. Today, she spoke about a friend from the past and an interaction with her mother that was very triggering to her. Discussed ways of reframing this incident and how to cope when people disappoint you. Mental Status: Mood: neutral Affect: mood-congruent Thoughts/Associations:goal directed Suicidal/Homicidal Ideation: None expressed or evidenced Other Observations: None Therapy Focus Mood/affect regulation MEDICATIONS: Per medical record: Current Outpatient Prescriptions: fluconazole (DIFLUCAN) 150 mg tablet Take 150 mg by mouth one time only. diazePAM (VALIUM) 2 mg tablet Take 2 mg by mouth every 6 hours as needed. ferrous sulfate 325 mg (65 mg iron) tablet Take 1 tablet by mouth daily with breakfast. fluticasone-salmeterol (ADVAIR DISKUS) 250-50 mcg/dose dsdv Inhale 1 Puff as instructed twice daily. Rinse and gargle mouth after use with water. albuterol HFA (VENTOLIN HFA) 90 mcg/actuation inhaler Inhale 2 Puffs as instructed every 4 hours as needed for Wheezing/Shortness of Breath. FLUoxetine HCl (PROZAC) 40 mg capsule Take 1 capsule by mouth once daily. linaclotide (LINZESS) 290 mcg cap Take 1 capsule by mouth once daily. mirabegron (MYRBETRIQ) 25 mg Tb24 Take 1 tablet by mouth once daily. buPROPion SR (ZYBAN SR; WELLBUTRIN SR) 150 mg 12 hr tablet TAKE ONE TABLET BY MOUTH TWICE DAILY ixekizumab (ANA AUTOINJECTOR, 2 PACK,) 80 mg/mL AutoInjector Inject subcutaneously. albuterol (PROVENTIL) 2.5 mg /3 mL (0.083 %) nebulizer solution Use 3 mL via nebulizer every 4 hours as needed for Wheezing/Shortness of Breath. Use over 5-15minutes. diclofenac, EC, (VOLTAREN) 75 mg EC tablet Take 1 tablet by mouth twice daily. For pain/inflammation. Take with food. PER DR. MALONE diclofenac sodium (VOLTAREN) 1 % topical gel Apply to affected area four times daily. PER DR. MALONE pregabalin (LYRICA) 75 mg capsule Take 75 mg by mouth three times daily. estrogens conjugated (PREMARIN) 0.9 mg tablet Take 1 tablet by mouth once daily. mirtazapine (REMERON) 30 mg tablet Take 1 tablet by mouth daily at bedtime. (Patient taking differently: Take 15 mg by mouth daily at bedtime. 1 1/2 at bedtime ) baclofen (LIORESAL) 10 mg tablet Take 1 tablet by mouth twice daily. (Patient taking differently: Take 10 mg by mouth three times daily.) Ustekinumab (STELARA) 90 mg/mL syrg Inject subcutaneously. TENS Units malika 1 Device as needed. COMPOUNDED PRESCRIPTION Order: cock up splints (2)Dx: carpal tunnel syndrome bilateral Cholecalciferol, Vitamin D3, 5,000 unit tab Take 5,000 Units by mouth once daily. cyanocobalamin (VITAMIN B-12) 1,000 mcg tab Take 1,000 mcg by mouth once daily. Docusate Sodium 250 mg capsule Take 250 mg by mouth once daily. No current facility-administered medications for this visit. Psychiatric Medication Issues: No change from previous appointment DIAGNOSIS: Diagnosis: Major Depressive Disorder, Recurrent, Mild Binge Eating Disorder Treatment Modality/Interventions: Cognitive Behavioral TREATMENT ASSESSMENT/PROGRESS: Stable. During her recovery, binge eating has increased due to pain and stress level, she stated. TREATMENT PLAN/GOALS: Continue in therapy focusing on affect management. Utilize CBT and DBT for coping. Put mindful eating skills into practice. Next appointment: 2 weeks hEsan Vasquez PSYD PROGRESS Observed: 01/07/2018 Status: COMPLETED Source: [place] 3:01 PM [facility] [place] REPOSITORY O ID: [id number] Author: Ehsan Sterling Service: (none) Author Type: Psychologist Type: Progress Notes Filed: 01/20/2018 9:39 AM Note Text: [facility] Progress Note Gay Coleman 01/07/2018 [id number] Provider: Ehsan Vasquez PSYD CPT Code: 13394 Psychotherapy 38-52 minutes Time: Approximately 45 minutes was spent in therapy. Parties Present: [id number] Patient Presentation/Concerns: Queenie indicated that she is still recovering from her surgery. She expresses being in a lot of pain and doing comfort eating. She has been successful in staying away from favorite fast food and felt a sense of accomplishment about this. Discussed strategies for self care while she is recovering from surgery. Queenie appears to be in pain from the way she walks/difficulty getting up etc. We talked about the benefits of reducing comfort eating to her recovery. Healthy foods can help her to heal. Mental Status: Mood: depressed Affect: mood-congruent Thoughts/Associations:goal directed Suicidal/Homicidal Ideation: None expressed or evidenced Other Observations: None Therapy Focus Mood/affect regulation MEDICATIONS: Per medical record: Current Outpatient Prescriptions: fluconazole (DIFLUCAN) 150 mg tablet Take 150 mg by mouth one time only. diazePAM (VALIUM) 2 mg tablet Take 2 mg by mouth every 6 hours as needed. ferrous sulfate 325 mg (65 mg iron) tablet Take 1 tablet by mouth daily with breakfast. fluticasone-salmeterol (ADVAIR DISKUS) 250-50 mcg/dose dsdv Inhale 1 Puff as instructed twice daily. Rinse and gargle mouth after use with water. albuterol HFA (VENTOLIN HFA) 90 mcg/actuation inhaler Inhale 2 Puffs as instructed every 4 hours as needed for Wheezing/Shortness of Breath. FLUoxetine HCl (PROZAC) 40 mg capsule Take 1 capsule by mouth once daily. linaclotide (LINZESS) 290 mcg cap Take 1 capsule by mouth once daily. mirabegron (MYRBETRIQ) 25 mg Tb24 Take 1 tablet by mouth once daily. buPROPion SR (ZYBAN SR; WELLBUTRIN SR) 150 mg 12 hr tablet TAKE ONE TABLET BY MOUTH TWICE DAILY ixekizumab (TALTZ AUTOINJECTOR, 2 PACK,) 80 mg/mL AutoInjector Inject subcutaneously. albuterol (PROVENTIL) 2.5 mg /3 mL (0.083 %) nebulizer solution Use 3 mL via nebulizer every 4 hours as needed for Wheezing/Shortness of Breath. Use over 5-15minutes. diclofenac, EC, (VOLTAREN) 75 mg EC tablet Take 1 tablet by mouth twice daily. For pain/inflammation. Take with food. PER DR. MALONE diclofenac sodium (VOLTAREN) 1 % topical gel Apply to affected area four times daily. PER DR. MALONE pregabalin (LYRICA) 75 mg capsule Take 75 mg by mouth three times daily. estrogens conjugated (PREMARIN) 0.9 mg tablet Take 1 tablet by mouth once daily. mirtazapine (REMERON) 30 mg tablet Take 1 tablet by mouth daily at bedtime. (Patient taking differently: Take 15 mg by mouth daily at bedtime. 1 1/2 at bedtime ) baclofen (LIORESAL) 10 mg tablet Take 1 tablet by mouth twice daily. (Patient taking differently: Take 10 mg by mouth three times daily.) Ustekinumab (STELARA) 90 mg/mL syrg Inject subcutaneously. TENS Units malika 1 Device as needed. COMPOUNDED PRESCRIPTION Order: cock up splints (2)Dx: carpal tunnel syndrome bilateral Cholecalciferol, Vitamin D3, 5,000 unit tab Take 5,000 Units by mouth once daily. cyanocobalamin (VITAMIN B-12) 1,000 mcg tab Take 1,000 mcg by mouth once daily. Docusate Sodium 250 mg capsule Take 250 mg by mouth once daily. No current facility-administered medications for this visit. Psychiatric Medication Issues: No change from previous appointment DIAGNOSIS: Diagnosis: Major Depressive Disorder, Recurrent, Mild Binge Eating Disorder Treatment Modality/Interventions: Cognitive Behavioral TREATMENT ASSESSMENT/PROGRESS: Stable TREATMENT PLAN/GOALS: Continue in therapy focusing on affect management. Healthy and mindful eating skills, coping, affect regulation skills. Next appointment: 2 weeks Ehsan Vasquez PSYD PROGRESS Observed: 12/31/2017 Status: COMPLETED Source: [place] 7:23 AM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 tunnel syndrome depression gastrointestinal problems headaches/migraines hearing problems hives recurrent infections IBS osteoarthritis pneumonia polycystic ovary vision problems psoriasis bloating mass on neck spinal stenosis - multiple back issues leg weakness lipoma upper back/posterior neck postop infected seroma upper back/posterior neck PAST SURGICAL HISTORY: deviated septum adenoids, tonsils 1975 bilateral breast reduction 2012 complete hysterectomy with BSO 2015 holes drilled in sinus turbinates 2015 bilateral carpal tunnel 2016 cataract L AND R, l toric lens replacement 2016 radiofrequency ablation 2017 excision 8 cm painful soft tissue mass upper back/posterior neck - 09/23/17 FAMILY HISTORY: positive for skin cancer severe allergies Father (biol.) - Has Family History of Hypertension Mother (biol.) - Has Family History of Arthritis Mother (biol.) - Has Family History of Hypertension Mother (biol.) - Has Family History of Other Cancer PGF - Has Family History of Alcoholism PGM - Has Family History of Alcoholism MGF - Has Family History of Depression MGF - Has Family History of Psychiatric Care MGF - Has Family History of Other Cancer MGM - Has Family History of Osteoporosis MGF - Has Family History of Stroke/CVA Aunt - Has Family History of Diabetes Brother (full) - Has Family History of Alcoholism SOCIAL HISTORY: patient does not smoke. patient does not drink alcohol. Assessment AND Plan Problems 1. Lipoma of back D17.1 2. Postoperative seroma of subcutaneous tissue after dermatologic procedure L76.33 3. Complication, postoperative infection T81.4XXA 4. Family history of skin cancer Z80.8 Coding Level of Care Code Global Post Op Diagnoses Lipoma of back D17.1 Postoperative seroma of subcutaneous tissue after dermatologic procedure L76.33 Complication, postoperative infection T81.4XXA Family history of skin cancer Z80.8 12/20/17 1945 <Electronically signed by Bonilla Alvarez MD> Date Bonilla Alvarez MD Cosigner Signature: Date (if applicable) CC: CBC AND DIFFERENTIAL Collected: 12/20/2017 Status: F Source: [place] 12:04 PM [facility] REPOSITORY TYPE CODE TESTS RESULT OUT OF REFERENCE UNITS RANGE LAB WBC 3.70-11.00 k/uL WBC 5.84 LAB RBC 3.90-5.20 m/uL RBC 4.00 LAB HGB 11.5-15.5 g/dL Low Hemoglobin 11.4 LAB HCT 36.0-46.0 % Hematocrit 37.8 LAB MCV 80.0-100.0 fL MCV 94.5 LAB MCH 26.0-34.0 pG MCH 28.5 LAB MCHC 30.5-36.0 g/dL Low MCHC 30.2 LAB RDWCV 11.5-15.0 % RDW-CV 13.5 LAB PLTCT 150-400 k/uL Platelet High Count 422 LAB MPV 9.0-12.7 fL MPV 10.2 LAB ANEUT % Neut% 56.8 LAB AANEUT 1.45-7.50 k/uL Abs Neut 3.31 LAB ALYMP % Lymph% 33.7 LAB AALYMP 1.00-4.00 k/uL Abs Lymph 1.97 LAB AMONO % [place]% 6.8 LAB AAMONO <0.87 k/uL Abs [place] 0.40 LAB AEOS % Eosin% 1.5 LAB AAEOS <0.46 k/uL Abs Eosin 0.09 LAB ABASO % Baso% 1.2 LAB AABASO <0.11 k/uL Abs Baso 0.07 LAB AUNRBC 0 /100 WBC NRBCs 0.0 LAB ABNRBC <0.01 k/uL Absolute nRBC <0.01 LAB DTYP DTYPE Auto Diff Performed By: #### CBCDIF, FERR, IRON #### [facility] [employer] [address] [place], [place] [id number] FERRITIN Collected: 12/20/2017 Status: F Source: [place] 12:04 PM [facility] REPOSITORY TYPE CODE TESTS RESULT OUT OF REFERENCE UNITS RANGE LAB FERR 14.7-205.1 ng/mL Ferritin 43.8 Performed By: #### CBCDIF, FERR, IRON #### [facility] [employer] [address] [place], [place] [id number] IRON AND TIBC Collected: 12/20/2017 Status: F Source: [place] 12:04 PM [facility] REPOSITORY TYPE CODE TESTS RESULT OUT OF REFERENCE UNITS RANGE LAB IRN 41-186 ug/dL Low Iron 37 LAB TIBC 232-386 ug/dL TIBC High 387 LAB SAT 15-57 % Low Transferrin Saturatn 10 Performed By: #### CBCDIF, FERR, IRON #### [facility] [employer] [address] [place], [place] [id number] OPERATIVE REPORT Observed: 12/14/2017 Status: F Source: [place] 9:25 PM [facility] REPOSITORY [facility] Medical Records Department [address] [place] [id number] Operative Report 11/27/17 1818 MR#: [id number] Acct: [id number] Name: GAY COLEMAN Rep #: [id number] : 1965 52 From: Bonilla Alvarez MD PCP: Everton Acevedo DO Status: [facility] Location: [facility] Report of Operation Date of Procedure: 11/27/17 Pre-Operative Diagnosis: 1. Painful infected lipoma scar upper back/posterior neck. 2. Infected hematoma upper back/posterior neck. 3. Family history of skin cancer. 4. MRSE. Post-Operative Diagnosis: Same. Surgery/Procedure Performed:: Surgical preparation upper back/posterior neck with incision and drainage and excisional debridement infected hematoma (66 cm2). Description of Surgical Findings:: 52-year-old woman initially presented with a painful soft tissue mass on her upper back/posterior neck area that has increased in size over the last several months. She denies any trauma. Denies any recent infection. It is painful when she bumps it. She denies any recent fever. Due to its large size and its painful symptomatology, operative excision was recommended which was done on 09/23/17. Postop she developed persistent redness and swelling and pain in the scar area. Clinically it appeared she may have a small seroma present. She continued her Cleocin. She was sent for Ultrasound guided drainage of the possible seroma. About 18 ml was removed. Some improvement was noted. Fluid was sent for culture which showed MRSE. It was sensitive to Levaquin and resistant to Cleocin. The Cleocin was stopped and she will be starting Levaquin. However her symptomatology persisted. Another Ultrasound guided drainage was recommended. However the second time, they could not appreciate any drainable fluid at this time. There was a suggestion of a hematoma. I recommended to the patient, that the conservative measures weren't healing the incision up quick enough. There was concern that the hematoma would become infected so operative drainage was recommended. The patient was informed of the risks and complications of the procedure including alternatives to surgery. These were discussed with the patient personally. The patient voices understanding and wishes to proceed. Some of the risks and complications were included in a form from the [employer]. Size of defect upper back - 11 x 6 x 5 cm. renal nurse: None Type of Anesthesia:: General Specimen's removed: 1. Infected hematoma upper back/posterior neck to Pathology and Microbiology. 2. Infected hematoma upper back/posterior neck MRSA DNA PCR swab culture. Drains: None. Estimated Blood Loss (mL): 50 ml. Description of Procedure: Patient was taken to OR in supine position and was placed under general anesthesia. She was then placed in the prone position as her upper back and posterior neck were prepped and draped in the usual fashion. SCD's were placed for DVT prophylaxis. Perioperative antibiotics were given intravenously. The previous incision was infiltrated with xylocaine with epinephrine. After waiting 5 minutes for the anesthetic to take effect, I proceeded with incision and drainage through the skin until the hematoma cavity was seen. There was a small residual hematoma present with some milky tissue present suggestive of infection. A lot of scar tissue present in the form of a postop capsule was sharply debrided and excised. Some residual seroma fluid was also present and drained. Some of the tissue was sent to Microbiology for culture. A positive culture may necessitate antibiotic modification. A swab culture was also taken as a DNA PCR to check for MRSA. The rest of the tissue was sent to Pathology for analysis to rule out carcinoma. The wound was irrigated with saline. Hemostasis was obtained with electrocautery. The size of the wound after incision and drainage and excisional debridement of this infected hematoma was 11 x 6 x 5 cm. The wound was dressed with Mepitel nonadherent dressing followed by Kerlix gauze with Betadine followed by dry Kerlix gauze and ABD pads for a compression dressing. Patient tolerated the procedure well and was sent to PACU in satisfactory condition. She will be sent upstairs for a surgical observation overnight stay in the hospital. The VAC will be placed tomorrow. When she is tolerating po analgesia and after the VAC is approved, she can then go home. She will followup at [facility]. She will be sent home on antibiotics and pain medication. If there is a plateau in the healing process, can proceed with delayed closure with skin grafting. Grafts/Implants Used: None. - Complications None. - Admit VTE Documentation VTE Present on Admission: No VTE Mechan Device Prophylaxis: SCD's VTE Pharm Prophylaxis ordered?: No Code Visit Surgery Charges CPT - 29109 ICD-10 - L76.31, T81.4xxA, D17.1, Z80.8 47172 L76.31, T81.4xxA, D17.1, Z80.8 12/14/172124 <Electronically signed by Bonilla Alvarez MD> Date Bonilla Alvarez MD CC: Bonilla Alvarez MD; Everton Acevedo DO; Nikko Poole MD Signed HISTORY AND PHYSICAL Observed: 12/08/2017 Status: F Source: [place] EXAM 9:35 PM [facility] REPOSITORY [facility] Medical Records Department [address] [place] [address] History and Physical 11/26/17 1822 MR#: [id number] Acct: [id number] Name: GAY COLEMAN Rep #: [id number] : 1965 52 From: Bonilla Alvarez MD PCP: Everton Acevedo DO Status: DEP [facility] Y Location: [facility] History and Physical Date of Admission: 11/27/17 Referring Provider: Nikko Poole MD Primary Provider: Everton Acevedo DO CC: evaluation painful infected lipoma scar upper back/posterior neck with underlying hematoma. History of Present Illness: 52-year-old woman initially presented with a painful soft tissue mass on her upper back/posterior neck area that has increased in size over the last several months. She denies any trauma. Denies any recent infection. It is painful when she bumps it. She denies any recent fever. Due to its large size and its painful symptomatology, operative excision was recommended which was done on 09/23/17. Postop she developed persistent redness and swelling and pain in the scar area. Clinically it appeared she may have a small seroma present. She continued her Cleocin. She was sent for Ultrasound guided drainage of the possible seroma. About 18 ml was removed. Some improvement was noted. Fluid was sent for culture which showed MRSE. It was sensitive to Levaquin and resistant to Cleocin. The Cleocin was stopped and she will be starting Levaquin. However her symptomatology persisted. Another Ultrasound guided drainage was recommended. However the second time, they could not appreciate any drainable fluid at this time. There was a suggestion of a hematoma. I recommended to the patient, that the conservative measures weren't healing the incision up quick enough. There was concern that the hematoma would become infected so operative drainage was recommended. Past Medical History: seasonal allergies arthritis asthma Bladder - OAB breast lump or cyst cataract carpal tunnel syndrome depression gastrointestinal problems headaches/migraines hearing problems hives recurrent infections IBS osteoarthritis pneumonia polycystic ovary vision problems psoriasis bloating mass on neck spinal stenosis - multiple back issues leg weakness infected seroma upper back and posterior back pain toward the left chest wall. painful infected hematoma upper back/posterior neck Past Surgical History: deviated septum adenoids, tonsils 1975 bilateral breast reduction 2012 complete hysterectomy with BSO 2014 holes drilled in sinus turbinates 2014 bilateral carpal tunnel 2016 cataract L AND R, l toric lens replacement 2016 radiofrequency ablation 201609/23/17 - Excision 8 cm painful soft tissue mass upper back/posterior neck. MEDICATIONS: Albuterol. Ventolin. Vitamin B12. Colace. Calcium. Fluticasone. Myrbetriq. Diclofenac. Taltz. Baclofen. Premarin. Lyrica. Budeprion. Linzess. Carvedilol. Fluoxetine. Wellbutrin. Remeron. ALLERGIES: Nabumetone. Dust. Thimerosal. Smoke. Percocet. Naproxen. Family History Summary: Father (biol.) - Has Family History of Hypertension Mother (biol.) - Has Family History of Arthritis Mother (biol.) - Has Family History of Hypertension Mother (biol.) - Has Family History of Other Cancer PGF - Has Family History of Alcoholism PGM - Has Family History of Alcoholism MGF - Has Family History of Depression MGF - Has Family History of Psychiatric Care MGF - Has Family History of Other Cancer MGM - Has Family History of Osteoporosis MGF - Has Family History of Stroke/CVA Aunt - Has Family History of Diabetes Brother (full) - Has Family History of Alcoholism General Comments - FH: severe allergies positive for skin cancer severe allergies Social History: Reviewed history and no changes required: patient does not smoke. patient does not drink alcohol. Risk Factors: Smoked Tobacco Use: Never smoker Smokeless Tobacco Use: Never Passive smoke exposure: no Drug use: no HIV high-risk behavior: no Caffeine use: 0 drinks per day Alcohol use: no Exercise: yes Type of Exercise: swim and walking Seatbelt use: 100 % Sun Exposure: frequently Family History Risk Factors: Family History of CO in females < 65 years old: no Family History of CO in males < 55 years old: no Dietary Counseling: yes Review of Systems General-denies fever and weight loss. Has some fatigue. Ear nose and throat-has chronic sinus problems. Denies nasal congestion. Denies sore throat. Eyes-denies eye pain. Has cataracts. Endocrine-denies excessive thirst or urination. Skin-had recent excision soft tissue mass in her upper back/posterior neck area. Has a family history of skin cancer. Now has persistent redness and pain over the incision. Ultrasound guided drainage was done and the fluid removed was sent for culture. It showed KALEN and her antbiotics were changed to Levaquin. Musculoskeletal-has joint pain, joint stiffness, weakness of muscles and joints, back pain, and arthritis. Neurologic-has headaches. Cardiovascular-denies chest pain. Has some fatigue. Denies shortness of breath with exertion. Psychiatric-denies anxiety. Has depression. Respiratory-has some shortness of breath. His chronic cough. Has obstructive sleep apnea. Has asthma. Has history of pneumonia. Gastrointestinal-denies nausea, vomiting, and diarrhea. Has constipation. Hematologic-denies abnormal bruising. Denies bleeding. Genitourinary-has urinary frequency. Denies hematuria. Has incontinence. Vital Signs: Patient Profile: 51 Years Old Female Height: 63.75 inches Weight: 260.6 pounds BMI: 45.08 BSA: 2.18 Physical Exam: General-well developed, well nourished, in no acute distress. HEENT-pupils equal round reactive to light. Extraocular muscles intact. Throat is clear. No suspicious lesions noted. Neck-supple, nontender. No cervical adenopathy. Lungs-clear to auscultation. Heart-regular rate and rhythm. Abdomen-soft and nondistended. Extremities-full range of motion. No axillary adenopathy. No suspicious lesions noted. Back-no bony tenderness. There is a vertical scar in the upper back near the posterior neck. Residual redness seen. No fluctuance. No purulent drainage noted. Mild tenderness to palpation. Midline scar measures about 10 cm and extends onto the posterior neck. Neuro-cranial nerves II through XII grossly intact. Assessment and Plan Assessment 1. Painful infected lipoma scar upper back/posterior neck. 2. Infected hematoma upper back/posterior neck. 3. Family history of skin cancer. 4. MRSE. Plan Recommend incision and drainage and excisional debridement on this painful infected hematoma upper back/posterior neck area. Will leave the wound open and proceed initially with a Betadine dressing. The VAC can be applied the next day. Also I may use Zhanna absorbable hemostat to minimize seroma formation during the time of surgery as well. We will also place a compression dressing as well. Surgery will be done under general anesthesia with a surgical observation overnight stay in the hospital. The patient was informed of the risks and complications of the procedure including alternatives to surgery. These were discussed with the patient personally. The patient voices understanding and wishes to proceed. Some of the risks and complications were included in a form from the [employer]. 12/08/17 9455 <Electronically signed by Bonilla Alvarez MD> Date Bonilla Alvarez MD Cosigner Signature: Date (if applicable) CC: Bonilla Alvarez MD; Everton Acevedo DO; Nikko Poole MD Signed PLASTIC SURGERY Observed: 12/08/2017 Status: F Source: [place] [facility] RE[facility] 1:42 AM [facility] REPOSITORY [facility] [address] [place] [address] OFFICE VISIT Date of Service: 11/07/17 MR#: [id number] Acct: [id number] Name: GAY COLEMAN Rep #: [id number] : 1965 Provider: Bonilla Alvarez MD Age/Sex: 52/F Location: [facility] Status: Signed Intake Vital Signs11/07/17 Height 5 ft 7 in 11/07/17 Weight: 269 lb 4 oz Intake Visit Reasons: 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 Accompanied by: None Is patient in pain?: Yes (upper back/ neck stabbing and sharp) Pain scale (1-10): 7 Allergies nabumetone Allergy (Verified 11/26/17 14:52) Hives thimerosal Allergy (Verified 11/26/17 14:52) Other acetaminophen [From Percocet] Adverse Reaction (Verified 11/26/17 14:52) Other naproxen [From Naprosyn] Adverse Reaction (Verified 11/26/17 14:52) Other oxycodone HCl [From Percocet] Adverse Reaction (Verified 11/26/17 14:52) Other Medications Albuterol Aerosols [Ventolin Aerosols] 2.5 mg INHALATION Q2H PRN PRN 09/22/17 [History Confirmed 11/26/17] Albuterol Inhaler [Ventolin Hfa] 2 puff INHALATION Q4H PRN PRN 09/22/17 [History Confirmed 11/26/17] Baclofen [Lioresal] 10 mg PO TID 09/22/17 [History Confirmed 11/26/17] BuPROPion (SR) [Wellbutrin Sr] 150 mg PO BID 09/22/17 [History Confirmed 11/26/17] Calcium Carbonate/Vitamin D3 [Calcium 500-Vit D3 200 Tablet] 1 ea PO DAILY 09/22/17 [History Confirmed 11/26/17] Diclofenac Sodium 100 gm TP 4X/DAY 09/22/17 [History Confirmed 11/26/17] Diclofenac [Voltaren] 75 mg PO BIDCM 09/22/17 [History Confirmed 11/26/17] Econazole [Spectazole] 1 applic TOPICAL DAILY 09/22/17 [History Confirmed 11/26/17] Estrogens, Conjugated [Premarin] 0.9 mg PO DAILY 09/22/17 [History Confirmed 11/26/17] Fluoxetine [Prozac] 40 mg PO DAILY 09/22/17 [History Confirmed 11/26/17] Linaclotide [Linzess] 290 mcg PO DAILY 09/22/17 [History Confirmed 11/26/17] Mirabegron [Myrbetriq] 25 mg PO DAILY 09/22/17 [History Confirmed 11/26/17] Mirtazapine [Remeron] 22 mg PO QHS 09/22/17 [History Confirmed 11/26/17] Pregabalin [Lyrica] 50 mg PO TID 09/22/17 [History Confirmed 11/26/17] Pyridoxine HCl [Vitamin B-6] 100 mg PO DAILY 09/22/17 [History Confirmed 11/26/17] Fluticasone/Salmeterol [Advair 250/50 Mcg Diskus] 1 puff INHALATION BID 11/26/17 [History Confirmed 11/26/17] Albuterol Aerosols [Ventolin Aerosols] 2.5 mg INHALATION Q6HWA.RT vial.neb. 11/29/17 [Rx] Budesonide Aerosol [Pulmicort Respules] 0.5 mg INHALATION Q12H.RT ampul.neb. 11/29/17 [Rx] Diazepam [Valium] 5 mg PO 4X/DAY PRN PRN 7 Days #30 tab 11/29/17 [Rx] Docusate Sodium [Colace] 100 mg PO BID cap 11/29/17 [Rx] HydrOXYzine [Atarax] 10 mg PO TID PRN PRN #60 tab 11/29/17 [Rx] HydromorphONE [Dilaudid] 2 - 4 mg PO 4X/DAY PRN PRN 7 Days #60 tab 11/29/17 [Rx] Iron Polysaccharide Complex [Ferrex 150] 150 mg PO DAILYCM #30 cap 11/29/17 [Rx] Iron Polysaccharide Complex [Ferrex 150] 150 mg PO DAILYCM #30 cap 11/29/17 [Rx] Lactobacillus Combo No.11 [Probiotic] 1 ea PO DAILY #60 cap.sprink 11/29/17 [Rx] ProMETHAzine [Phenergan] 25 mg PO 4X/DAY PRN PRN #30 tab 11/29/17 [Rx] levofloxacin 500 mg tablet 500 mg PO DAILY #14 tab 12/08/17 [Rx Confirmed 12/08/17] Is last menstrual period known: Yes Post menopausal: No Patient : No PFSH Medical History Lipoma of back (Chronic) Postoperative seroma of subcutaneous tissue after dermatologic procedure (Acute) Arthritis (Acute) Asthma (Acute) BREAST LUMP OR CYST (Acute) Bloating (Acute) Carpal tunnel syndrome (Acute) Cataract (Acute) Depression (Acute) GASTROINTESTIONAL PROBLEMS (Acute) Hearing problem (Acute) History of migraine headaches (Acute) Hives (Acute) IBS (irritable bowel syndrome) (Acute) LIPOMA UPPER BACK/POSTERIOR NECK (Acute) Leg weakness (Acute) Mass in neck (Acute) OAB (overactive bladder) (Acute) Osteoarthritis (Acute) Pneumonia (Acute) Polycystic ovary (Acute) Psoriasis (Acute) Recurrent infections (Acute) SPINAL STENOSIS - MULTIPLE BACK ISSUES (Acute) Seasonal allergies (Acute) Vision problems (Acute) Surgical History ADENOIDS AND TONSILS 1974 (Acute) CATARACT L AND R, TORIC LENS REPLACEMENT 2016 (Acute) COMPLETE HYSTERECTOMY WITH BSO 2015 (Acute) Deviated septum (Acute) EXCISION 8 CM PAINFUL SOFT TISSUE MASS (Acute) H/O bilateral breast reduction surgery (Acute 2012) RADIOFRQUENSY ABLATION 2017 (Acute) Family History Father Hypertension Mother Arthritis Hypertension Cancer Brother Alcohol abuse Aunt Diabetes Grandfather Alcohol abuse Grandfather Psychiatric care Cancer CVA (cerebral vascular accident) Grandmother Alcohol abuse Grandmother Arthritis Depression Other Family history of basal cell carcinoma Family history of skin cancer Social History Smoking Status: Never smoker alcohol intake: never substance use type: does not use what type of physical activity do you participate in: walking, swimming seatbelt use: always do you feel safe at home: Yes additional social history: SUN EXPOSURE: FREQUENTLY HPI postop surgery 09/23/17: Details: Postop visit from her recent surgery on September 23, 2017 where she underwent excision 8 cm painful soft tissue mass upper back/posterior neck. Comes in today with no complaints. Incision is dry and intact. No evidence of hematoma. Mild swelling slowly resolving. Less redness seen at the incision. Had Ultrasound guided drainage 10/29/17 in Radiology. They removed 18 ml. A culture was obtained. It showed MRSE. The Cleocin was resistant, and she was changed to Levaquin. Pathology showed a lipoma. No carcinoma was seen. Massage the incision with skin lotion daily to help soften up the scar. Follow-up one week. Will schedule another Ultrasound for next week. PAST MEDICAL HISTORY: seasonal allergies arthritis asthma Bladder - OAB breast lump or cyst cataract carpal tunnel syndrome depression gastrointestinal problems headaches/migraines hearing problems hives recurrent infections IBS osteoarthritis pneumonia polycystic ovary vision problems psoriasis bloating mass on neck spinal stenosis - multiple back issues leg weakness lipoma upper back/posterior neck postop infected seroma upper back/posterior neck PAST SURGICAL HISTORY: deviated septum adenoids, tonsils 1975 bilateral breast reduction 2013 complete hysterectomy with BSO 2015 holes drilled in sinus turbinates 2015 bilateral carpal tunnel 2016 cataract L AND R, l toric lens replacement 2016 radiofrequency ablation 2017 excision 8 cm painful soft tissue mass upper back/posterior neck - 09/23/17 FAMILY HISTORY: positive for skin cancer severe allergies Father (biol.) - Has Family History of Hypertension Mother (biol.) - Has Family History of Arthritis Mother (biol.) - Has Family History of Hypertension Mother (biol.) - Has Family History of Other Cancer PGF - Has Family History of Alcoholism PGM - Has Family History of Alcoholism MGF - Has Family History of Depression MGF - Has Family History of Psychiatric Care MGF - Has Family History of Other Cancer MGM - Has Family History of Osteoporosis MGF - Has Family History of Stroke/CVA Aunt - Has Family History of Diabetes Brother (full) - Has Family History of Alcoholism SOCIAL HISTORY: patient does not smoke. patient does not drink alcohol. Assessment AND Plan Problems 1. Lipoma of back D17.1 2. Postoperative seroma of subcutaneous tissue after dermatologic procedure L76.33 3. Complication, postoperative infection T81.4XXA 4. Family history of skin cancer Z80.8 Medications Refilled: Coding Level of Care Code Global Post Op Diagnoses Lipoma of back D17.1 Postoperative seroma of subcutaneous tissue after dermatologic procedure L76.33 Complication, postoperative infection T81.4XXA Family history of skin cancer Z80.8 12/08/17 0142 <Electronically signed by Bonilla Alvarez MD> Date Bonilla Alvarez MD Cosigner Signature: Date (if applicable) CC: PLASTIC SURGERY Observed: 12/07/2017 Status: F Source: [place] [facility] REPORT 7:23 PM [facility] REPOSITORY [facility] [address] [place] [address] OFFICE VISIT Date of Service: 10/30/17 MR#: [id number] Acct: [id number] Name: GAY COLEMAN Rep #: [id number] : 1965 Provider: Bonilla Alvarez MD Age/Sex: 51/F Location: [facility] Status: Signed Intake Vital Signs10/30/17 Height 5 ft 7 in 10/30/17 Weight: 264 lb Intake Visit Reasons: 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 Accompanied by: None Is patient in pain?: Yes (neck/back) Pain scale (1-10): 5 Allergies nabumetone Allergy (Verified 11/26/17 14:52) Hives thimerosal Allergy (Verified 11/26/17 14:52) Other acetaminophen [From Percocet] Adverse Reaction (Verified 11/26/17 14:52) Other naproxen [From Naprosyn] Adverse Reaction (Verified 11/26/17 14:52) Other oxycodone HCl [From Percocet] Adverse Reaction (Verified 11/26/17 14:52) Other Medications Albuterol Aerosols [Ventolin Aerosols] 2.5 mg INHALATION Q2H PRN PRN 09/22/17 [History Confirmed 11/26/17] Albuterol Inhaler [Ventolin Hfa] 2 puff INHALATION Q4H PRN PRN 09/22/17 [History Confirmed 11/26/17] Baclofen [Lioresal] 10 mg PO TID 09/22/17 [History Confirmed 11/26/17] BuPROPion (SR) [Wellbutrin Sr] 150 mg PO BID 09/22/17 [History Confirmed 11/26/17] Calcium Carbonate/Vitamin D3 [Calcium 500-Vit D3 200 Tablet] 1 ea PO DAILY 09/22/17 [History Confirmed 11/26/17] Diclofenac Sodium 100 gm TP 4X/DAY 09/22/17 [History Confirmed 11/26/17] Diclofenac [Voltaren] 75 mg PO BIDCM 09/22/17 [History Confirmed 11/26/17] Econazole [Spectazole] 1 applic TOPICAL DAILY 09/22/17 [History Confirmed 11/26/17] Estrogens, Conjugated [Premarin] 0.9 mg PO DAILY 09/22/17 [History Confirmed 11/26/17] Fluoxetine [Prozac] 40 mg PO DAILY 09/22/17 [History Confirmed 11/26/17] Linaclotide [Linzess] 290 mcg PO DAILY 09/22/17 [History Confirmed 11/26/17] Mirabegron [Myrbetriq] 25 mg PO DAILY 09/22/17 [History Confirmed 11/26/17] Mirtazapine [Remeron] 22 mg PO QHS 09/22/17 [History Confirmed 11/26/17] Pregabalin [Lyrica] 50 mg PO TID 09/22/17 [History Confirmed 11/26/17] Pyridoxine HCl [Vitamin B-6] 100 mg PO DAILY 09/22/17 [History Confirmed 11/26/17] Fluticasone/Salmeterol [Advair 250/50 Mcg Diskus] 1 puff INHALATION BID 11/26/17 [History Confirmed 11/26/17] Albuterol Aerosols [Ventolin Aerosols] 2.5 mg INHALATION Q6HWA.RT vial.neb. 11/29/17 [Rx] Budesonide Aerosol [Pulmicort Respules] 0.5 mg INHALATION Q12H.RT ampul.neb. 11/29/17 [Rx] Diazepam [Valium] 5 mg PO 4X/DAY PRN PRN 7 Days #30 tab 11/29/17 [Rx] Docusate Sodium [Colace] 100 mg PO BID cap 11/29/17 [Rx] HydrOXYzine [Atarax] 10 mg PO TID PRN PRN #60 tab 11/29/17 [Rx] HydromorphONE [Dilaudid] 2 - 4 mg PO 4X/DAY PRN PRN 7 Days #60 tab 11/29/17 [Rx] Iron Polysaccharide Complex [Ferrex 150] 150 mg PO DAILYCM #30 cap 11/29/17 [Rx] Iron Polysaccharide Complex [Ferrex 150] 150 mg PO DAILYCM #30 cap 11/29/17 [Rx] Lactobacillus Combo No.11 [Probiotic] 1 ea PO DAILY #60 cap.sprink 11/29/17 [Rx] Levofloxacin [Levaquin] 500 mg PO DAILY #14 tab 11/29/17 [Rx] ProMETHAzine [Phenergan] 25 mg PO 4X/DAY PRN PRN #30 tab 11/29/17 [Rx] PFSH Medical History Lipoma of back (Chronic) Postoperative seroma of subcutaneous tissue after dermatologic procedure (Acute) Arthritis (Acute) Asthma (Acute) BREAST LUMP OR CYST (Acute) Bloating (Acute) Carpal tunnel syndrome (Acute) Cataract (Acute) Depression (Acute) GASTROINTESTIONAL PROBLEMS (Acute) Hearing problem (Acute) History of migraine headaches (Acute) Hives (Acute) IBS (irritable bowel syndrome) (Acute) LIPOMA UPPER BACK/POSTERIOR NECK (Acute) Leg weakness (Acute) Mass in neck (Acute) OAB (overactive bladder) (Acute) Osteoarthritis (Acute) Pneumonia (Acute) Polycystic ovary (Acute) Psoriasis (Acute) Recurrent infections (Acute) SPINAL STENOSIS - MULTIPLE BACK ISSUES (Acute) Seasonal allergies (Acute) Vision problems (Acute) Surgical History ADENOIDS AND TONSILS 1974 (Acute) CATARACT L AND R, TORIC LENS REPLACEMENT 2016 (Acute) COMPLETE HYSTERECTOMY WITH BSO 2015 (Acute) Deviated septum (Acute) EXCISION 8 CM PAINFUL SOFT TISSUE MASS (Acute) H/O bilateral breast reduction surgery (Acute 2012) RADIOFRQUENSY ABLATION 2017 (Acute) Family History Father Hypertension Mother Arthritis Hypertension Cancer Brother Alcohol abuse Aunt Diabetes Grandfather Alcohol abuse Grandfather Psychiatric care Cancer CVA (cerebral vascular accident) Grandmother Alcohol abuse Grandmother Arthritis Depression Other Family history of basal cell carcinoma Family history of skin cancer Social History Smoking Status: Never smoker alcohol intake: never substance use type: does not use what type of physical activity do you participate in: walking, swimming seatbelt use: always do you feel safe at home: Yes additional social history: SUN EXPOSURE: FREQUENTLY HPI postop surgery 09/23/17: Details: Postop visit from her recent surgery on September 23, 2017 where she underwent excision 8 cm painful soft tissue mass upper back/posterior neck. Comes in today with no complaints. Incision is dry and intact. No evidence of hematoma. Less redness seen at the incision. Had Ultrasound guided drainage yesterday in Radiology. They removed 18 ml. A culture was obtained. Gram stain thus far shows Gram positive cocci in clusters. Will continue the Cleocin at the present time. Pathology showed a lipoma. No carcinoma was seen. Massage the incision with skin lotion daily to help soften up the scar. Follow-up one week. PAST MEDICAL HISTORY: seasonal allergies arthritis asthma Bladder - OAB breast lump or cyst cataract carpal tunnel syndrome depression gastrointestinal problems headaches/migraines hearing problems hives recurrent infections IBS osteoarthritis pneumonia polycystic ovary vision problems psoriasis bloating mass on neck spinal stenosis - multiple back issues leg weakness lipoma upper back/posterior neck postop seroma upper back/posterior neck PAST SURGICAL HISTORY: deviated septum adenoids, tonsils 1975 bilateral breast reduction 2013 complete hysterectomy with BSO 2015 holes drilled in sinus turbinates 2015 bilateral carpal tunnel 2016 cataract L AND R, l toric lens replacement 2016 radiofrequency ablation 2017 excision 8 cm painful soft tissue mass upper back/posterior neck - 09/23/17 FAMILY HISTORY: positive for skin cancer severe allergies Father (biol.) - Has Family History of Hypertension Mother (biol.) - Has Family History of Arthritis Mother (biol.) - Has Family History of Hypertension Mother (biol.) - Has Family History of Other Cancer PGF - Has Family History of Alcoholism PGM - Has Family History of Alcoholism MGF - Has Family History of Depression MGF - Has Family History of Psychiatric Care MGF - Has Family History of Other Cancer MGM - Has Family History of Osteoporosis MGF - Has Family History of Stroke/CVA Aunt - Has Family History of Diabetes Brother (full) - Has Family History of Alcoholism SOCIAL HISTORY: patient does not smoke. patient does not drink alcohol. Assessment AND Plan Problems 1. Lipoma of back D17.1 2. Postoperative seroma of subcutaneous tissue after dermatologic procedure L76.33 3. Family history of skin cancer Z80.8 Coding Level of Care Code Global Post Op Diagnoses Lipoma of back D17.1 Postoperative seroma of subcutaneous tissue after dermatologic procedure L76.33 Family history of skin cancer Z80.8 12/07/17 1923 <Electronically signed by Bonilla Alvarez MD> Date Bonilla Alvarez MD Cosign Signature: Date (if applicable) CC: PLASTIC SURGERY Observed: 12/07/2017 Status: F Source: [place] [facility] REPORT 3:12 PM [facility] REPOSITORY [facility] [address] [place] [address] OFFICE VISIT Date of Service: 10/22/17 MR#: [id number] Acct: [id number] Name: SUDHAKARHORACIOBEVERLYA Matthew Rep #: [id number] : 1965 Provider: Bonilla Alvarez MD Age/Sex: 51/F Location: [facility] Status: Signed Intake Vital Signs10/22/17 Height 5 ft 7 in 10/22/17 Weight: 266 lb 2 oz Intake Visit Reasons: 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 Accompanied by: None Is patient in pain?: No Allergies nabumetone Allergy (Verified 11/26/17 14:52) Hives thimerosal Allergy (Verified 11/26/17 14:52) Other acetaminophen [From Percocet] Adverse Reaction (Verified 11/26/17 14:52) Other naproxen [From Naprosyn] Adverse Reaction (Verified 11/26/17 14:52) Other oxycodone HCl [From Percocet] Adverse Reaction (Verified 11/26/17 14:52) Other Medications Albuterol Aerosols [Ventolin Aerosols] 2.5 mg INHALATION Q2H PRN PRN 09/22/17 [History Confirmed 11/26/17] Albuterol Inhaler [Ventolin Hfa] 2 puff INHALATION Q4H PRN PRN 09/22/17 [History Confirmed 11/26/17] Baclofen [Lioresal] 10 mg PO TID 09/22/17 [History Confirmed 11/26/17] BuPROPion (SR) [Wellbutrin Sr] 150 mg PO BID 09/22/17 [History Confirmed 11/26/17] Calcium Carbonate/Vitamin D3 [Calcium 500-Vit D3 200 Tablet] 1 ea PO DAILY 09/22/17 [History Confirmed 11/26/17] Diclofenac Sodium 100 gm TP 4X/DAY 09/22/17 [History Confirmed 11/26/17] Diclofenac [Voltaren] 75 mg PO BIDCM 09/22/17 [History Confirmed 11/26/17] Econazole [Spectazole] 1 applic TOPICAL DAILY 09/22/17 [History Confirmed 11/26/17] Estrogens, Conjugated [Premarin] 0.9 mg PO DAILY 09/22/17 [History Confirmed 11/26/17] Fluoxetine [Prozac] 40 mg PO DAILY 09/22/17 [History Confirmed 11/26/17] Linaclotide [Linzess] 290 mcg PO DAILY 09/22/17 [History Confirmed 11/26/17] Mirabegron [Myrbetriq] 25 mg PO DAILY 09/22/17 [History Confirmed 11/26/17] Mirtazapine [Remeron] 22 mg PO QHS 09/22/17 [History Confirmed 11/26/17] Pregabalin [Lyrica] 50 mg PO TID 09/22/17 [History Confirmed 11/26/17] Pyridoxine HCl [Vitamin B-6] 100 mg PO DAILY 09/22/17 [History Confirmed 11/26/17] Fluticasone/Salmeterol [Advair 250/50 Mcg Diskus] 1 puff INHALATION BID 11/26/17 [History Confirmed 11/26/17] Albuterol Aerosols [Ventolin Aerosols] 2.5 mg INHALATION Q6HWA.RT vial.neb. 11/29/17 [Rx] Budesonide Aerosol [Pulmicort Respules] 0.5 mg INHALATION Q12H.RT ampul.neb. 11/29/17 [Rx] Diazepam [Valium] 5 mg PO 4X/DAY PRN PRN 7 Days #30 tab 11/29/17 [Rx] Docusate Sodium [Colace] 100 mg PO BID cap 11/29/17 [Rx] HydrOXYzine [Atarax] 10 mg PO TID PRN PRN #60 tab 11/29/17 [Rx] HydromorphONE [Dilaudid] 2 - 4 mg PO 4X/DAY PRN PRN 7 Days #60 tab 11/29/17 [Rx] Iron Polysaccharide Complex [Ferrex 150] 150 mg PO DAILYCM #30 cap 11/29/17 [Rx] Iron Polysaccharide Complex [Ferrex 150] 150 mg PO DAILYCM #30 cap 11/29/17 [Rx] Lactobacillus Combo No.11 [Probiotic] 1 ea PO DAILY #60 cap.sprink 11/29/17 [Rx] Levofloxacin [Levaquin] 500 mg PO DAILY #14 tab 11/29/17 [Rx] ProMETHAzine [Phenergan] 25 mg PO 4X/DAY PRN PRN #30 tab 11/29/17 [Rx] Is last menstrual period known: No Patient : No PFSH Medical History Lipoma of back (Chronic) Postoperative seroma of subcutaneous tissue after dermatologic procedure (Acute) Arthritis (Acute) Asthma (Acute) BREAST LUMP OR CYST (Acute) Bloating (Acute) Carpal tunnel syndrome (Acute) Cataract (Acute) Depression (Acute) GASTROINTESTIONAL PROBLEMS (Acute) Hearing problem (Acute) History of migraine headaches (Acute) Hives (Acute) IBS (irritable bowel syndrome) (Acute) LIPOMA UPPER BACK/POSTERIOR NECK (Acute) Leg weakness (Acute) Mass in neck (Acute) OAB (overactive bladder) (Acute) Osteoarthritis (Acute) Pneumonia (Acute) Polycystic ovary (Acute) Psoriasis (Acute) Recurrent infections (Acute) SPINAL STENOSIS - MULTIPLE BACK ISSUES (Acute) Seasonal allergies (Acute) Vision problems (Acute) Surgical History ADENOIDS AND TONSILS 1974 (Acute) CATARACT L AND R, TORIC LENS REPLACEMENT 2016 (Acute) COMPLETE HYSTERECTOMY WITH BSO 2014 (Acute) Deviated septum (Acute) EXCISION 8 CM PAINFUL SOFT TISSUE MASS (Acute) H/O bilateral breast reduction surgery (Acute 2012) RADIOFRQUENSY ABLATION 2017 (Acute) Family History Father Hypertension Mother Arthritis Hypertension Cancer Brother Alcohol abuse Aunt Diabetes Grandfather Alcohol abuse Grandfather Psychiatric care Cancer CVA (cerebral vascular accident) Grandmother Alcohol abuse Grandmother Arthritis Depression Other Family history of basal cell carcinoma Family history of skin cancer Social History Smoking Status: Never smoker alcohol intake: never substance use type: does not use what type of physical activity do you participate in: walking, swimming seatbelt use: always do you feel safe at home: Yes additional social history: SUN EXPOSURE: FREQUENTLY HPI postop surgery 09/23/17: Details: Postop visit from her recent surgery on September 23, 2017 where she underwent excision 8 cm painful soft tissue mass upper back/posterior neck. Comes in today with no complaints. Incision is dry and intact. No evidence of hematoma. Less redness seen at the incision. Pathology showed a lipoma. No carcinoma was seen. Massage the incision with skin lotion daily to help soften up the scar. Will check an Ultrasound with possible drainage. If drainage is necessary, will have Radiology send a culture as well. Anticipate a Staph. Will begin Cleocin for 10 days. Follow-up one week. PAST MEDICAL HISTORY: seasonal allergies arthritis asthma Bladder - OAB breast lump or cyst cataract carpal tunnel syndrome depression gastrointestinal problems headaches/migraines hearing problems hives recurrent infections IBS osteoarthritis pneumonia polycystic ovary vision problems psoriasis bloating mass on neck spinal stenosis - multiple back issues leg weakness lipoma upper back/posterior neck PAST SURGICAL HISTORY: deviated septum adenoids, tonsils 1974 bilateral breast reduction 2012 complete hysterectomy with BSO 2014 holes drilled in sinus turbinates 2015 bilateral carpal tunnel 2016 cataract L AND R, l toric lens replacement 2016 radiofrequency ablation 2017 excision 8 cm painful soft tissue mass upper back/posterior neck - 09/23/17 FAMILY HISTORY: positive for skin cancer severe allergies Father (biol.) - Has Family History of Hypertension Mother (biol.) - Has Family History of Arthritis Mother (biol.) - Has Family History of Hypertension Mother (biol.) - Has Family History of Other Cancer PGF - Has Family History of Alcoholism PGM - Has Family History of Alcoholism MGF - Has Family History of Depression MGF - Has Family History of Psychiatric Care MGF - Has Family History of Other Cancer MGM - Has Family History of Osteoporosis MGF - Has Family History of Stroke/CVA Aunt - Has Family History of Diabetes Brother (full) - Has Family History of Alcoholism SOCIAL HISTORY: patient does not smoke. patient does not drink alcohol. Assessment AND Plan Problems 1. Lipoma of back D17.1 2. Family history of skin cancer Z80.8 Medications Refilled: Coding Level of Care Code Global Post Op Diagnoses Lipoma of back D17.1 Family history of skin cancer Z80.8 12/07/17 1512 <Electronically signed by Bonilla Alvarez MD> Date Bonilla Alvarez MD Cosigner Signature: Date (if applicable) CC: PROGRESS Observed: 12/04/2017 Status: COMPLETED Source: [place] 9:24 AM [facility] [place] REPOSITORY HNO ID: [id number] Author: Ehsan Sterling Service: (none) Author Type: Psychologist Type: Progress Notes Filed: 12/04/2017 9:34 AM Note Text: [facility] Progress Note Gay Coleman 11/25/2017 [id number] Provider: Ehsan Vasquez PSYD CPT Code: 67649 Psychotherapy 38-52 minutes Time: Approximately 45 minutes was spent in therapy. Parties Present: Patient Patient Presentation/Concerns: Queenie indicated that she was having an upcoming surgery. She is preparing for this procedure. Her appetite continues to be lower. She is making efforts to curb the emotional eating with reading and avoiding trigger spots. She spoke extensively about whether to include/inform her family in her upcoming medical issues. We discussed boundaries and expectations. Mental Status: Mood: depressed Affect: mood-congruent Thoughts/Associations:goal directed Suicidal/Homicidal Ideation: None expressed or evidenced Other Observations: None Therapy Focus Mood/affect regulation MEDICATIONS: Per medical record: Current Outpatient Prescriptions: fluticasone-salmeterol (ADVAIR DISKUS) 250-50 mcg/dose dsdv Inhale 1 Puff as instructed twice daily. Rinse and gargle mouth after use with water. albuterol HFA (VENTOLIN HFA) 90 mcg/actuation inhaler Inhale 2 Puffs as instructed every 4 hours as needed for Wheezing/Shortness of Breath. FLUoxetine HCl (PROZAC) 40 mg capsule Take 1 capsule by mouth once daily. linaclotide (LINZESS) 290 mcg cap Take 1 capsule by mouth once daily. mirabegron (MYRBETRIQ) 25 mg Tb24 Take 1 tablet by mouth once daily. buPROPion SR (ZYBAN SR; WELLBUTRIN SR) 150 mg 12 hr tablet TAKE ONE TABLET BY MOUTH TWICE DAILY ixekizumab (SquareTradeTZ AUTOINJECTOR, 2 PACK,) 80 mg/mL AutoInjector Inject subcutaneously. albuterol (PROVENTIL) 2.5 mg /3 mL (0.083 %) nebulizer solution Use 3 mL via nebulizer every 4 hours as needed for Wheezing/Shortness of Breath. Use over 5-15minutes. diclofenac, EC, (VOLTAREN) 75 mg EC tablet Take 1 tablet by mouth twice daily. For pain/inflammation. Take with food. PER DR. MALONE diclofenac sodium (VOLTAREN) 1 % topical gel Apply to affected area four times daily. PER DR. MALONE pregabalin (LYRICA) 75 mg capsule Take 75 mg by mouth three times daily. estrogens conjugated (PREMARIN) 0.9 mg tablet Take 1 tablet by mouth once daily. mirtazapine (REMERON) 30 mg tablet Take 1 tablet by mouth daily at bedtime. (Patient taking differently: Take 15 mg by mouth daily at bedtime. 1 1/2 at bedtime ) baclofen (LIORESAL) 10 mg tablet Take 1 tablet by mouth twice daily. (Patient taking differently: Take 10 mg by mouth three times daily.) Ustekinumab (STELARA) 90 mg/mL syrg Inject subcutaneously. TENS Units malika 1 Device as needed. COMPOUNDED PRESCRIPTION Order: cock up splints (2)Dx: carpal tunnel syndrome bilateral Cholecalciferol, Vitamin D3, 5,000 unit tab Take 5,000 Units by mouth once daily. cyanocobalamin (VITAMIN B-12) 1,000 mcg tab Take 1,000 mcg by mouth once daily. Docusate Sodium 250 mg capsule Take 250 mg by mouth once daily. No current facility-administered medications for this visit. Psychiatric Medication Issues: No change from previous appointment DIAGNOSIS: Diagnosis: Major Depressive Disorder, Recurrent, Mild Binge e Treatment Modality/Interventions: Cognitive Behavioral TREATMENT ASSESSMENT/PROGRESS: Stable. Pain and health issues seem to excacerbate mood and sensitivity. TREATMENT PLAN/GOALS: Continue in therapy focusing on affect management, CBT for depression and binge eating Next appointment: 2 weeks Ehsan Vasquez PSYD PROGRESS Observed: 12/03/2017 Status: COMPLETED Source: [place] 12:17 PM [facility] REPOSITORY HNO ID: [id number] Author: Ehsan Sterling Service: (none) Author Type: Psychologist Type: Progress Notes Filed: 12/10/2017 6:20 PM Note Text: [facility] Progress Note Gay Coleman 12/03/2017 [id number] Provider: Ehsan Vasquez PSYD CPT Code: 00483 Psychotherapy 38-52 minutes Time: Approximately 45 minutes was spent in therapy. Parties Present: Patient Patient Presentation/Concerns: Queenie had on a wound vac today and moved very slowly. She appeared to be in pain. She indicated working on rest and taking care of herself. She is working on drinking dark chocolate protein shakes to curb appetite and feel tran. She indicated some binge eating/emotional eating due to pain/recovery. Mental Status: Mood: depressed Affect: mood-congruent Thoughts/Associations:goal directed Suicidal/Homicidal Ideation: None expressed or evidenced Other Observations: None Therapy Focus Mood/affect regulation MEDICATIONS: Per medical record: Current Outpatient Prescriptions: fluticasone-salmeterol (ADVAIR DISKUS) 250-50 mcg/dose dsdv Inhale 1 Puff as instructed twice daily. Rinse and gargle mouth after use with water. albuterol HFA (VENTOLIN HFA) 90 mcg/actuation inhaler Inhale 2 Puffs as instructed every 4 hours as needed for Wheezing/Shortness of Breath. FLUoxetine HCl (PROZAC) 40 mg capsule Take 1 capsule by mouth once daily. linaclotide (LINZESS) 290 mcg cap Take 1 capsule by mouth once daily. mirabegron (MYRBETRIQ) 25 mg Tb24 Take 1 tablet by mouth once daily. buPROPion SR (ZYBAN SR; WELLBUTRIN SR) 150 mg 12 hr tablet TAKE ONE TABLET BY MOUTH TWICE DAILY ixekizumab (TALTZ AUTOINJECTOR, 2 PACK,) 80 mg/mL AutoInjector Inject subcutaneously. albuterol (PROVENTIL) 2.5 mg /3 mL (0.083 %) nebulizer solution Use 3 mL via nebulizer every 4 hours as needed for Wheezing/Shortness of Breath. Use over 5-15minutes. diclofenac, EC, (VOLTAREN) 75 mg EC tablet Take 1 tablet by mouth twice daily. For pain/inflammation. Take with food. PER DR. MALONE diclofenac sodium (VOLTAREN) 1 % topical gel Apply to affected area four times daily. PER DR. MALONE pregabalin (LYRICA) 75 mg capsule Take 75 mg by mouth three times daily. estrogens conjugated (PREMARIN) 0.9 mg tablet Take 1 tablet by mouth once daily. mirtazapine (REMERON) 30 mg tablet Take 1 tablet by mouth daily at bedtime. (Patient taking differently: Take 15 mg by mouth daily at bedtime. 1 1/2 at bedtime ) baclofen (LIORESAL) 10 mg tablet Take 1 tablet by mouth twice daily. (Patient taking differently: Take 10 mg by mouth three times daily.) Ustekinumab (STELARA) 90 mg/mL syrg Inject subcutaneously. TENS Units malika 1 Device as needed. COMPOUNDED PRESCRIPTION Order: cock up splints (2)Dx: carpal tunnel syndrome bilateral Cholecalciferol, Vitamin D3, 5,000 unit tab Take 5,000 Units by mouth once daily. cyanocobalamin (VITAMIN B-12) 1,000 mcg tab Take 1,000 mcg by mouth once daily. Docusate Sodium 250 mg capsule Take 250 mg by mouth once daily. No current facility-administered medications for this visit. Psychiatric Medication Issues: No change from previous appointment DIAGNOSIS: Diagnosis: Major Depressive Disorder, Recurrent, Mild Binge eating disorder Treatment Modality/Interventions: Cognitive Behavioral TREATMENT ASSESSMENT/PROGRESS: Stable TREATMENT PLAN/GOALS: Continue in therapy focusing on affect management. Mindful eating. CBT for coping. Self Care techniques Next appointment: 2 weeks Ehsan Vasquez PSYD DISCHARGE INSTRUCTION Observed: 11/29/2017 Status: F Source: [place] 10:35 AM [facility] REPOSITORY [facility] Medical Records Department [address] [place] [address] Instructions for Home/Discharge Instructions 11/29/17 1022 MR#: [id number] Acct: [id number] Name: GAY COLEMAN Rep #: [id number] : 1965 52 From: Bonilla Alvarez MD PCP: Everton Acevedo DO Status: REG SDC - Discharge Diagnoses Current Active Problems: Current Active and Chronic Problems (Last Updated 11/10/17 @ 14:38 by Bonilla Alvarez MD) Complication, postoperative infection (Acute) Open wound of back wall of thorax without penetration into thoracic cavity (Acute) Postoperative hematoma of subcutaneous tissue following dermatologic procedure (Acute) You will use the following diet at home:: No restrictions, Other - encourage nutritional supplementation with protein to help the healing process. Discharge Activity: May not drive while taking narcotic pain medications., May Shower - on the days the vac is changed., - - no heavy lifting. keep head elevated. May shower in (days): 2 - may shower on the days the vac is changed. May resume sexual activity in: No Restrictions Weight Bearing Status: Weight bearing as tolerated Lifting Restrictions: 20 lbs. Keep extremity elevated above heart level: - - elevate head. Additional Activity Instructions:: Home Health to assist with the vac changes three times per week at 150 mmHg continuous suction. May wash the wound and periwound with soap and water at the time of the vac dressing change. Call your doctor if your incision/area has: Continuous Slow Oozing, Sudden Increased Bleeding, Increased Pain/ Swelling, Increased Redness, Foul Smelling Discharge, Swelling at the incision site Call your doctor if you observe: Fever of 101 or Higher, Coldness, Increased Pain, Shortness of breath, Chest pain, Calf discomfort, Uncontrolled pain Suture Line Care: - - vac changes three times per week. Change Dressing in (Days):: 2 - vac changes three times per week. Cleanse incision/area with: Soap AND Water - may cleanse the wound and periwound with soap and water at the time of the vac dressing change., - - may shower on the days the vac is changed. Allergies/Adverse Reactions: Allergies nabumetone Allergy (Verified 11/26/17 14:52) Hives thimerosal Allergy (Verified 11/26/17 14:52) Other PER ALLERGY TESTING acetaminophen [From Percocet] Adverse Reaction (Verified 11/26/17 14:52) Other naproxen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 Docusate Sodium 250 mg capsule Take 250 mg by mouth once daily. ixekizumab (TALBABATUNDE AUTOINJECTOR, 2 PACK,) 80 mg/mL AutoInjector Inject subcutaneously. Ustekinumab (STELARA) 90 mg/mL syrg Inject subcutaneously. No current facility-administered medications for this visit. 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 Uvula midline. Neck: No LAD, no thyromegaly, no meningismus. CV: RRR, no murmur Lungs: no distress, intermittent end expiratory wheezing, no cough, no dyspnea conversational Obese, Tearful throughout exam Skin: scar midline upper back with mild TTP without signs of infection ASSESSMENT/PLAN: 1. Chronic obstructive pulmonary disease, unspecified COPD type (HCC) - ICD9: 496, ICD10: J44.9 - d/c Flovent, start on Advair, f/u in office in 1 month - FLUTICASONE 250 MCG-SALMETEROL 50 MCG/DOSE BLISTR POWDR FOR INHALATION 2. Mild intermittent asthma without complication - ICD9: 493.90, ICD10: J45.20 - d/c Flovent, start on Advair, f/u in office in 1 month - FLUTICASONE 250 MCG-SALMETEROL 50 MCG/DOSE BLISTR POWDR FOR INHALATION 3. Exercise-induced asthma - ICD9: 493.81, ICD10: J45.990 - d/c Flovent, start on Advair, f/u in office in 1 month - ALBUTEROL SULFATE HFA 90 MCG/ACTUATION AEROSOL INHALER 4. Dysthymia - ICD9: 300.4, ICD10: F34.1 - consider increased dose of Prozac in future if needed, no SI or HI, many traumatic experiences in past that influence mood - FLUOXETINE 40 MG CAPSULE 5. Irritable bowel syndrome with constipation - ICD9: 564.1, ICD10: K58.1 - rx refilled, likely related to her anxiety and depressed mood as well - LINACLOTIDE 290 MCG CAPSULE Everton Acevedo DO Return if no improvement. Follow up with Everton Acevedo DO. Discussed risks, benefits, alternatives, and potential side effects of medications. Patient/Guardian expressed understanding and agreed with the plan. See patient instructions. Everton Acevedo DO [id number] [place] [address] Referring Provider: EVERTON ACEVEDO [[id number]] Allergies As of Date: 11/25/2017 Noted Allergy Reaction DUST 12/26/2006 NABUMETONE 10/04/2014 8 - GI Upset SEASONAL ALLERGIES 06/19/2015 14 - Other: See Comments SMOKE 12/26/2006 THIMERISOL (THIMEROSAL) 01/09/2016 5 - Intolerance Date Reviewed: 11/25/2017 Reviewed by: Ehsan Laboy LPN - Fully Assessed Reason for Visit: Follow Up [171] Cmt: 3 months Visit Diagnoses:Chronic obstructive pulmonary disease, unspecified COPD type (HCC) [J44.9] Mild intermittent asthma without complication [J45.20] Exercise-induced asthma [J45.990] Dysthymia [F34.1] Irritable bowel syndrome with constipation [K58.1] Order(s):fluticasone-salmeterol (ADVAIR DISKUS) 250-50 mcg/dose dsdvInhale 1 Puff as instructed twice daily. Rinse and gargle mouth after use with water.Disp: 1 InhalerRfl: 3 albuterol HFA (VENTOLIN HFA) 90 mcg/actuation inhalerInhale 2 Puffs as instructed every 4 hours as needed for Wheezing/Shortness of Breath.Disp: 2 InhalerRfl: 3 FLUoxetine HCl (PROZAC) 40 mg capsuleTake 1 capsule by mouth once daily.Disp: 90 capsuleRfl: 1 linaclotide (LINZESS) 290 mcg capTake 1 capsule by mouth once daily.Disp: 30 capsuleRfl: 4 mirabegron (MYRBETRIQ) 25 mg [id number] 1 tablet by mouth once daily.Disp: 30 tabletRfl: 5 Prescriptions as of 11/25/2017 Sig: ALBUTEROL SULFATE HFA 90 MCG/* Inhale 2 Puffs as instructed * FLUOXETINE 40 MG CAPSULE Take 1 capsule by mouth once * LINACLOTIDE 290 MCG CAPSULE Take 1 capsule by mouth once * MIRABEGRON ER 25 MG TABLET,EX* Take 1 tablet by mouth once d* BUPROPION HCL SR 150 MG TABLE* TAKE ONE TABLET BY MOUTH TWIC* ALBUTEROL SULFATE 2.5 MG/3 ML* Use 3 mL via nebulizer every * DICLOFENAC SODIUM 75 MG TABLE* Take 1 tablet by mouth twice * DICLOFENAC 1 % TOPICAL GEL Apply to affected area four * PREGABALIN 75 MG CAPSULE Take 75 mg by mouth three justion* CONJUGATED ESTROGENS 0.9 MG T* Take 1 tablet by mouth once d* MIRTAZAPINE 30 MG TABLET Take 1 tablet by mouth daily * Patient taking differently: Take 15 mg by mouth daily at * BACLOFEN 10 MG TABLET Take 1 tablet by mouth twice * Patient taking differently: Take 10 mg by mouth three justino* TRANSCUTANEOUS ELECTRICAL NER* 1 Device as needed. COMPOUNDED PRESCRIPTION Order: cock up splints (2) D* CHOLECALCIFEROL (VITAMIN D3) * Take 5,000 Units by mouth onc* CYANOCOBALAMIN (VIT B-12) 1,0* Take 1,000 mcg by mouth once * DOCUSATE SODIUM 250 MG CAPSULE Take 250 mg by mouth once sudhakar* FLUTICASONE 250 MCG-SALMETERO* Inhale 1 Puff as instructed t* IXEKIZUMAB 80 MG/ML SUBCUTANE* Inject subcutaneously. USTEKINUMAB 90 MG/ML SUBCUTAN* Inject subcutaneously. Problem List As Of Date 11/25/2017 Noted Resolved Migraine without aura [346.1] INVALID FOR*07/28/2017 Dysthymia [F34.1] INVALID FOR* Perimenopausal [N95.1] INVALID FOR*07/28/2017 Breast hypertrophy [N62] INVALID FOR* Bloating [R14.0] Constipation [K59.00] Adnexal mass [N94.9] INVALID FOR*10/31/2016 Flatulence, eructation, and gas pain [R14.3, R1*INVALID FOR*01/26/2015 Unspecified constipation [K59.00] INVALID FOR*01/26/2015 Midline low back pain without sciatica [M54.5] INVALID FOR* Intervertebral disc disorder with radiculopathy*INVALID FOR* DDD (degenerative disc disease), lumbar [M51.36]INVALID FOR* Cervical disc disorder with radiculopathy [M50.*INVALID FOR* DDD (degenerative disc disease), cervical [M50.*INVALID FOR* Carpal tunnel syndrome, bilateral [G56.03] INVALID FOR*07/28/2017 Asthma [J45.909] INVALID FOR* OLGA (obstructive sleep apnea) [G47.33] INVALID FOR* More... Psoriasis [L40.9] INVALID FOR* OAB (overactive bladder) [N32.81] INVALID FOR* Impaired fasting glucose [R73.01] INVALID FOR* Exercise-induced asthma [J45.990] INVALID FOR* Obesity, Class III, BMI 40-49.9 (morbid obesity*INVALID FOR* Irritable bowel syndrome with constipation [K58*INVALID FOR* ANDREW (generalized anxiety disorder) [F41.1] INVALID FOR* Neck mass [R22.1] INVALID FOR* Prescriptions ordered this encounter Disp Refills Start End FLUTICASONE 250 MCG-SALMETEROL 50 MC* 1 In* 3 11/25/2017 Route: INHALATION Sig: Inhale 1 Puff as instructed twice daily. Rinse and gargle mouth after use with water. ALBUTEROL SULFATE HFA 90 MCG/ACTUATI* 2 In* 3 11/25/2017 Route: INHALATION Sig: Inhale 2 Puffs as instructed every 4 hours as needed for Wheezing/Shortness of Breath. FLUOXETINE 40 MG CAPSULE 90 c* 1 11/25/2017 Route: ORAL Sig: Take 1 capsule by mouth once daily. LINACLOTIDE 290 MCG CAPSULE 30 c* 4 11/25/2017 Route: ORAL Sig: Take 1 capsule by mouth once daily. MIRABEGRON ER 25 MG TABLET,EXTENDED * 30 t* 5 11/25/2017 Route: ORAL Sig: Take 1 tablet by mouth once daily. Medications Discontinued During This Encounter fluticasone (FLOVENT) 110 mcg/actuat* 3 In* 3 08/07/2017 11/25/2017 Route: INHALATION Sig: Inhale 1 Puff as instructed twice daily. Disc: Reason for discontinue is not on file. albuterol (PROVENTIL) 5 mg/mL nebu 1 mL 0 07/28/2017 11/25/2017 Class: Back Office Route: INHALATION Sig: Inhale 0.5 mL as instructed one time only for 1 dose. 1 DOSE NOW - BACK OFFICE. PLACE 0.5 ML PER DROPPER AND 2.5 ML OF NORMAL SALINE INTO RESERVOIR. Disc: Reason for discontinue is not on file. albuterol (PROVENTIL) 2.5 mg /3 mL (* 3 mL 0 07/18/2017 11/25/2017 Class: In Office Route: NEBULIZATION -UNSPEC Sig: Use 3 mL via nebulizer one time only for 1 dose. Use over 5-15minutes. Disc: Reason for discontinue is not on file. albuterol HFA (VENTOLIN HFA) 90 mcg/* 1 In* 0 09/01/2017 11/25/2017 Route: INHALATION Sig: Inhale 2 Puffs as instructed every 4 hours as needed for Wheezing/Shortness of Breath. Disc: Reason for discontinue is not on file. FLUoxetine (PROZAC) 10 mg capsule 14 c* 0 06/23/2015 11/25/2017 Route: ORAL Sig: Take 1 capsule by mouth once daily for 14 days. Disc: Reason for discontinue is not on file. FLUoxetine HCl (PROZAC) 40 mg capsule 90 c* 1 07/01/2017 11/25/2017 Route: ORAL Sig: Take 1 capsule by mouth once daily. Disc: Reason for discontinue is not on file. linaclotide (LINZESS) 290 mcg cap 30 c* 4 05/05/2017 11/25/2017 Route: ORAL Sig: Take 1 capsule by mouth once daily. Disc: Reason for discontinue is not on file. mirabegron (MYRBETRIQ) 25 mg Tb24 30 t* 5 05/22/2017 11/25/2017 Route: ORAL Sig: Take 1 tablet by mouth once daily. Disc: Reason for discontinue is not on file. Encounter Status:Closed by EVERTON ACEVEDO DO on 11/25/17 PROGRESS Observed: 11/20/2017 Status: COMPLETED Source: [place] 8:51 AM [facility] REPOSITORY HNO ID: [id number] Author: Ehsan Sterling Service: (none) Author Type: Psychologist Type: Progress Notes Filed: 11/27/2017 3:27 PM Note Text: [facility] Progress Note Gay Coleman 11/19/2017 [id number] Provider: Ehsan Vasquez PSYD CPT Code: 21431 Psychotherapy 38-52 minutes Time: Approximately 45 minutes was spent in therapy. Parties Present: Patient Patient Presentation/Concerns: Gay indicated successfully avoiding the binge meal each night for a week. She has lost 5-8lbs. Gay spoke about a hurtful incident with a friend which triggered many emotions that reminded her of her family. Mental Status: Mood: depressed Affect: mood-congruent Thoughts/Associations:goal directed Suicidal/Homicidal Ideation: None expressed or evidenced Other Observations: None Therapy Focus Mood/affect regulation MEDICATIONS: Per medical record: Current Outpatient Prescriptions: buPROPion SR (ZYBAN SR; WELLBUTRIN SR) 150 mg 12 hr tablet TAKE ONE TABLET BY MOUTH TWICE DAILY albuterol HFA (VENTOLIN HFA) 90 mcg/actuation inhaler Inhale 2 Puffs as instructed every 4 hours as needed for Wheezing/Shortness of Breath. ixekizumab (TALTZ AUTOINJECTOR, 2 PACK,) 80 mg/mL AutoInjector Inject subcutaneously. fluticasone (FLOVENT) 110 mcg/actuation inhaler Inhale 1 Puff as instructed twice daily. albuterol (PROVENTIL) 2.5 mg /3 mL (0.083 %) nebulizer solution Use 3 mL via nebulizer every 4 hours as needed for Wheezing/Shortness of Breath. Use over 5-15minutes. FLUoxetine HCl (PROZAC) 40 mg capsule Take 1 capsule by mouth once daily. diclofenac, EC, (VOLTAREN) 75 mg EC tablet Take 1 tablet by mouth twice daily. For pain/inflammation. Take with food. PER DR. MALONE diclofenac sodium (VOLTAREN) 1 % topical gel Apply to affected area four times daily. PER DR. MALONE mirabegron (MYRBETRIQ) 25 mg Tb24 Take 1 tablet by mouth once daily. linaclotide (LINZESS) 290 mcg cap Take 1 capsule by mouth once daily. pregabalin (LYRICA) 75 mg capsule Take 75 mg by mouth three times daily. estrogens conjugated (PREMARIN) 0.9 mg tablet Take 1 tablet by mouth once daily. mirtazapine (REMERON) 30 mg tablet Take 1 tablet by mouth daily at bedtime. baclofen (LIORESAL) 10 mg tablet Take 1 tablet by mouth twice daily. (Patient taking differently: Take 10 mg by mouth three times daily.) Ustekinumab (STELARA) 90 mg/mL syrg Inject subcutaneously. TENS Units malika 1 Device as needed. COMPOUNDED PRESCRIPTION Order: cock up splints (2)Dx: carpal tunnel syndrome bilateral Cholecalciferol, Vitamin D3, 5,000 unit tab Take 5,000 Units by mouth once daily. cyanocobalamin (VITAMIN B-12) 1,000 mcg tab Take 1,000 mcg by mouth once daily. Docusate Sodium 250 mg capsule Take 250 mg by mouth once daily. No current facility-administered medications for this visit. Psychiatric Medication Issues: No change from previous appointment DIAGNOSIS: Diagnosis: Major Depressive Disorder, Recurrent, Mild Binge Eating Treatment Modality/Interventions: Cognitive Behavioral TREATMENT ASSESSMENT/PROGRESS: Stable, improvement in reducing binge eating this week TREATMENT PLAN/GOALS: Continue in therapy focusing on affect management. Next appointment: 2 weeks Ehsan Vasquez PSYD PROGRESS Observed: 11/12/2017 Status: COMPLETED Source: [place] 4:51 PM [facility] REPOSITORY HNO ID: [id number] Author: Ehsan Sterling Service: (none) Author Type: Psychologist Type: Progress Notes Filed: 11/20/2017 9:29 AM Note Text: [facility] Progress Note Gay Coleman 11/11/2017 [id number] Provider: Ehsan Vasquez PSYD CPT Code: 85228 Psychotherapy 38-52 minutes Time: Approximately 45 minutes was spent in therapy. Parties Present: self Patient Presentation/Concerns: Queenie was very tearful about the holidays. She chose not to attend her family melva. She was happy with this decision. A relative indicated the negative things her father had said about her. This was emotionally very difficult and led to many tears and binge eating. She did reduce the night binge eating to 2 episodes over the holidays from daily. She continues to work on healing from her major surgeries. Mental Status: Mood: depressed Affect: mood-congruent Thoughts/Associations:goal directed, ruminative Suicidal/Homicidal Ideation: None expressed or evidenced Patient denies any suicidal or homicidal ideation, plan or intent at this time. Other Observations: None Therapy Focus Mood/affect regulation MEDICATIONS: Per medical record: Current Outpatient Prescriptions: buPROPion SR (ZYBAN SR; WELLBUTRIN SR) 150 mg 12 hr tablet TAKE ONE TABLET BY MOUTH TWICE DAILY albuterol HFA (VENTOLIN HFA) 90 mcg/actuation inhaler Inhale 2 Puffs as instructed every 4 hours as needed for Wheezing/Shortness of Breath. ixekizumab (TALTZ AUTOINJECTOR, 2 PACK,) 80 mg/mL AutoInjector Inject subcutaneously. fluticasone (FLOVENT) 110 mcg/actuation inhaler Inhale 1 Puff as instructed twice daily. albuterol (PROVENTIL) 2.5 mg /3 mL (0.083 %) nebulizer solution Use 3 mL via nebulizer every 4 hours as needed for Wheezing/Shortness of Breath. Use over 5-15minutes. FLUoxetine HCl (PROZAC) 40 mg capsule Take 1 capsule by mouth once daily. diclofenac, EC, (VOLTAREN) 75 mg EC tablet Take 1 tablet by mouth twice daily. For pain/inflammation. Take with food. PER DR. MALONE diclofenac sodium (VOLTAREN) 1 % topical gel Apply to affected area four times daily. PER DR. MALONE mirabegron (MYRBETRIQ) 25 mg Tb24 Take 1 tablet by mouth once daily. linaclotide (LINZESS) 290 mcg cap Take 1 capsule by mouth once daily. pregabalin (LYRICA) 75 mg capsule Take 75 mg by mouth three times daily. estrogens conjugated (PREMARIN) 0.9 mg tablet Take 1 tablet by mouth once daily. mirtazapine (REMERON) 30 mg tablet Take 1 tablet by mouth daily at bedtime. baclofen (LIORESAL) 10 mg tablet Take 1 tablet by mouth twice daily. (Patient taking differently: Take 10 mg by mouth three times daily.) Ustekinumab (STELARA) 90 mg/mL syrg Inject subcutaneously. TENS Units malika 1 Device as needed. COMPOUNDED PRESCRIPTION Order: cock up splints (2)Dx: carpal tunnel syndrome bilateral Cholecalciferol, Vitamin D3, 5,000 unit tab Take 5,000 Units by mouth once daily. cyanocobalamin (VITAMIN B-12) 1,000 mcg tab Take 1,000 mcg by mouth once daily. Docusate Sodium 250 mg capsule Take 250 mg by mouth once daily. No current facility-administered medications for this visit. Psychiatric Medication Issues: No change from previous appointment DIAGNOSIS: Diagnosis: Major Depressive Disorder, Recurrent, Mild Binge Eating Treatment Modality/Interventions: Cognitive Behavioral TREATMENT ASSESSMENT/PROGRESS: Stable TREATMENT PLAN/GOALS: Continue in therapy focusing on affect management. Next appointment: 2 weeks Ehsan Everett Vasquez PSYD HEAD/NECK SOFT TISSUE Observed: 11/12/2017 Status: F Source: [place] 1:59 PM [facility] REPOSITORY [facility] Imaging Services [address] [place] [address] Head/Neck Soft Tissue MR#: [id number] Acct: [id number] Name: GAY COLEMAN Rep #: [id number] : 1965 F 52 From: Anshul Sams MD PCP: Everton Acevedo DO Status: REG CLI Study: Head/Neck Soft Tissue Date of Exam: 11/12/17 Exam# [id number] Ordering Dr: Bonilla Alvarez MD STUDY: SUPERFICIAL ULTRASOUND - POSTERIOR ASPECT OF THE CERVICAL REGION. REASON FOR EXAM: Female, 52 years old. Postoperative seroma/infection. TECHNIQUE: A superficial ultrasound was performed with real- time and static freeman-scale imaging. COMPARISON: None. FINDINGS: The area of interest was examined by ultrasound. The abnormality corresponds to a heterogeneous predominantly soft tissue density with small amount of loculated fluid. This most likely represents either postoperative abscess or hematoma. Surgical drainage is recommended. US/Head/Neck Soft Tissue IMPRESSION: Complex solid and fluid. This collection most likely representing abscess or hematoma. Percutaneous drainage would not be successful. Electronically Signed: Anshul Sams MD at 15:23 EST Tel [phone], Service support , CC: Bonilla Alvarez MD; Everton Acevedo DO Skydiving Instructor: Signed PLASTIC SURGERY Observed: 11/10/2017 Status: F Source: [place] VISIT REPORT 2:42 PM [facility] REPOSITORY [facility] [address] [place] [address] OFFICE VISIT Date of Service: 10/10/17 MR#: [id number] Acct: [id number] Name: GAY COLEMAN Rep #: [id number] : 1965 Provider: Bonilla Alvarez MD Age/Sex: 51/F Location: [facility] Status: Signed Intake Vital Signs10/10/17 Height 5 ft 7 in 10/10/17 Weight: 267 lb 8 oz Intake Visit Reasons: postop surgery 09/23/17 Is patient in pain?: No Allergies nabumetone Allergy (Verified 11/07/17 16:10) Hives thimerosal Allergy (Verified 11/07/17 16:10) Other acetaminophen [From Percocet] Adverse Reaction (Verified 11/07/17 16:10) Other naproxen [From Naprosyn] Adverse Reaction (Verified 11/07/17 16:10) Other oxycodone HCl [From Percocet] Adverse Reaction (Verified 11/07/17 16:10) Other Medications Fluticasone 0.05% [Flonase Nasal [place]] 2 spray NASAL DAILY 03/30/15 [History Confirmed 11/07/17] Albuterol Aerosols [Ventolin Aerosols] 2.5 mg INHALATION Q2H PRN PRN 09/22/17 [History Confirmed 11/07/17] Albuterol Inhaler [Ventolin Hfa] 2 puff INHALATION Q4H PRN PRN 09/22/17 [History Confirmed 11/07/17] Baclofen [Lioresal] 10 mg PO TID 09/22/17 [History Confirmed 11/07/17] BuPROPion (SR) [Wellbutrin Sr] 150 mg PO BID 09/22/17 [History Confirmed 11/07/17] Calcium Carbonate/Vitamin D3 [Calcium 500-Vit D3 200 Tablet] 1 ea PO DAILY 09/22/17 [History Confirmed 11/07/17] Carvedilol [Coreg (Beta Marilou)] 12.5 mg PO BID 09/22/17 [History Confirmed 11/07/17] Diclofenac Sodium 100 gm TP 4X/DAY 09/22/17 [History Confirmed 11/07/17] Diclofenac [Voltaren] 75 mg PO BIDCM 09/22/17 [History Confirmed 11/07/17] Econazole [Spectazole] 1 applic TOPICAL DAILY 09/22/17 [History Confirmed 11/07/17] Estrogens, Conjugated [Premarin] 0.9 mg PO DAILY 09/22/17 [History Confirmed 11/07/17] Fluoxetine [Prozac] 40 mg PO DAILY 09/22/17 [History Confirmed 11/07/17] Fluticasone 110 Mcg [Flovent 110 Mcg] 2 puff INHALATION BID 09/22/17 [History Confirmed 11/07/17] Ixekizumab [Taltz Syringe] 80 mg SQ QMONTH 09/22/17 [History Confirmed 11/07/17] Lactobacillus Combo No.11 [Probiotic] 1 ea PO DAILY 09/22/17 [History Confirmed 11/07/17] Linaclotide [Linzess] 290 mcg PO DAILY 09/22/17 [History Confirmed 11/07/17] Mirabegron [Myrbetriq] 25 mg PO DAILY 09/22/17 [History Confirmed 11/07/17] Mirtazapine [Remeron] 30 mg PO QHS 09/22/17 [History Confirmed 11/07/17] Pregabalin [Lyrica] 50 mg PO TID 09/22/17 [History Confirmed 11/07/17] Pyridoxine HCl [Vitamin B-6] 100 mg PO DAILY 09/22/17 [History Confirmed 11/07/17] Diazepam [Valium] 5 mg PO 4X/DAY PRN PRN #20 tab 09/23/17 [Rx Confirmed 11/07/17] HydromorphONE [Dilaudid] 2 - 4 mg PO 4X/DAY PRN PRN #40 tab 09/23/17 [Rx Confirmed 11/07/17] clindamycin HCl 300 mg capsule 300 mg PO TID #42 cap 10/30/17 [Rx Confirmed 11/07/17] Patient : No PFSH Medical History Family history of skin cancer (Chronic) Lipoma of back (Chronic) Postoperative seroma of subcutaneous tissue after dermatologic procedure (Acute) Arthritis (Acute) Asthma (Acute) BREAST LUMP OR CYST (Acute) Bloating (Acute) Carpal tunnel syndrome (Acute) Cataract (Acute) Depression (Acute) GASTROINTESTIONAL PROBLEMS (Acute) Hearing problem (Acute) History of migraine headaches (Acute) Hives (Acute) IBS (irritable bowel syndrome) (Acute) LIPOMA UPPER BACK/POSTERIOR NECK (Acute) Leg weakness (Acute) Mass in neck (Acute) OAB (overactive bladder) (Acute) Osteoarthritis (Acute) Pneumonia (Acute) Polycystic ovary (Acute) Psoriasis (Acute) Recurrent infections (Acute) SPINAL STENOSIS - MULTIPLE BACK ISSUES (Acute) Seasonal allergies (Acute) Vision problems (Acute) Surgical History ADENOIDS AND TONSILS 1974 (Acute) CATARACT L AND R, TORIC LENS REPLACEMENT 2016 (Acute) COMPLETE HYSTERECTOMY WITH BSO 2015 (Acute) Deviated septum (Acute) EXCISION 8 CM PAINFUL SOFT TISSUE MASS (Acute) H/O bilateral breast reduction surgery (Acute 2012) RADIOFRQUENSY ABLATION 2017 (Acute) Family History Father Hypertension Mother Arthritis Hypertension Cancer Brother Alcohol abuse Aunt Diabetes Grandfather Alcohol abuse Grandfather Psychiatric care Cancer CVA (cerebral vascular accident) Grandmother Alcohol abuse Grandmother Arthritis Depression Social History Smoking Status: Never smoker alcohol intake: never substance use type: does not use what type of physical activity do you participate in: walking, swimming seatbelt use: always do you feel safe at home: Yes additional social history: SUN EXPOSURE: FREQUENTLY HPI postop surgery 09/23/17: Details: Postop visit from her recent surgery on September 23, 2017 where she underwent excision 8 cm painful soft tissue mass upper back/posterior neck. Comes in today with no complaints. Incision is dry and intact. No evidence of hematoma. Sutures were removed today without difficulty. Pathology showed a lipoma. No carcinoma was seen. Massage the incision with skin lotion daily to help soften up the scar. Follow-up on an as needed basis. Past Medical History: seasonal allergies arthritis asthma Bladder - OAB breast lump or cyst cataract carpal tunnel syndrome depression gastrointestinal problems headaches/migraines hearing problems hives recurrent infections IBS osteoarthritis pneumonia polycystic ovary vision problems psoriasis bloating mass on neck spinal stenosis - multiple back issues leg weakness lipoma upper back/posterior neck Past Surgical History: deviated septum adenoids, tonsils 1974 bilateral breast reduction 2012 complete hysterectomy with BSO 2014 holes drilled in sinus turbinates 2015 bilateral carpal tunnel 2016 cataract L AND R, l toric lens replacement 2016 radiofrequency ablation 2017 excision 8 cm painful soft tissue mass upper back/posterior neck - 09/23/17 Family History: positive for skin cancer severe allergies Father (biol.) - Has Family History of Hypertension - Entered On: 09/03/2017 Mother (biol.) - Has Family History of Arthritis - Entered On: 09/03/2017 Mother (biol.) - Has Family History of Hypertension - Entered On: 09/03/2017 Mother (biol.) - Has Family History of Other Cancer - Entered On: 09/03/2017 PGF - Has Family History of Alcoholism - Entered On: 09/03/2017 PGM - Has Family History of Alcoholism - Entered On: 09/03/2017 MGF - Has Family History of Depression - Entered On: 09/03/2017 MGF - Has Family History of Psychiatric Care - Entered On: 09/03/2017 MGF - Has Family History of Other Cancer - Entered On: 09/03/2017 MGM - Has Family History of Osteoporosis - Entered On: 09/03/2017 MGF - Has Family History of Stroke/CVA - Entered On: 09/03/2017 Aunt - Has Family History of Diabetes - Entered On: 09/03/2017 Brother (full) - Has Family History of Alcoholism - Entered On: 09/03/2017 Social History: patient does not smoke. patient does not drink alcohol. Medications: ALBUTEROL SULFATE NEBULIZATION SOLUTION (ALBUTEROL SULFATE NEBU) 4 times daily VENTOLIN HFA 108 (90 BASE) MCG/ACT INHALATION AEROSOL SOLUTION (ALBUTEROL SULFATE) as needed B-12 1000 MCG ORAL CAPSULE (CYANOCOBALAMIN) daily DOCUSATE SODIUM 250 MG ORAL CAPSULE (DOCUSATE SODIUM) daily GNP CALCIUM CITRATE +D3 TABLET (CALCIUM CITRATE-VITAMIN D TABS) 5000 unit tab FLUTICASONE PROPIONATE 50 MCG/ACT NASAL SUSPENSION (FLUTICASONE PROPIONATE) as needed TALTZ 80 MG/ML SUBCUTANEOUS SOLUTION AUTO-INJECTOR (IXEKIZUMAB) once every 2 weeks BACLOFEN 10 MG ORAL TABLET (BACLOFEN) 3 times daily PREMARIN 0.9 MG ORAL TABLET (ESTROGENS CONJUGATED) daily LYRICA 75 MG ORAL CAPSULE (PREGABALIN) 3 times daily BUDEPRION SR 150 MG ORAL TABLET EXTENDED RELEASE 12 HOUR (BUPROPION HCL) 2 times daily LINZESS 290 MCG ORAL CAPSULE (LINACLOTIDE) daily MYRBETRIQ 25 MG ORAL TABLET EXTENDED RELEASE 24 HOUR (MIRABEGRON) 1 daily DICLOFENAC SODIUM 1 % TRANSDERMAL GEL (DICLOFENAC SODIUM) 4 times daily DICLOFENAC SODIUM 75 MG ORAL TABLET DELAYED RELEASE (DICLOFENAC SODIUM) 2 times daily CARVEDILOL 12.5 MG ORAL TABLET (CARVEDILOL) One tablet by mouth twice a day FLUOXETINE HCL 40 MG ORAL CAPSULE (FLUOXETINE HCL) 1 daily Allergies: * NABUMETONE (Critical) * DUST (Critical) * THIMERISOL (Severe) * ENVIRONMENTAL (Severe) * SMOKE (Severe) 11/10/17 1442 <Electronically signed by Bonilla Alvarez MD> Date Bonilla Alvarez MD Cosigner Signature: Date (if applicable) CC: CNCO Observed: 11/04/2017 Status: COMPLETED Source: [place] 4:33 PM [facility] [place] REPOSITORY HNO ID: [id number] Author: Mammography Coordinator Service: (none) Author Type: Physician Type: Letter Filed: 2017 11:32 PM Note Text: November 04, 2017 PID: [id number] Gay Quiroz [place] [address] [place] [address] Dear Ms. Coleman, We are pleased to inform you that the results of your recent breast imaging exam on 11/04/2017 are normal. Early detection of cancer is very important. We also understand recommendations regarding breast cancer screening are controversial. Please discuss with your primary care provider which strategy is best for you and whether a mammogram is right for you. Your imaging studies and report will be kept on file at [facility] as part of your permanent medical record and are available for your continuing care. Thank you for allowing us to help in meeting your health care needs. Sincerely, Dr. Villela Interpreting Radiologist [facility] (Normal over 40) JANINE DIG SCREEN CAD Observed: 11/04/2017 Status: F Source: [facility] 10:52 AM [facility] REPOSITORY * * *Final Report* * * DATE OF EXAM: Nov 04 2017 10:52AM WOW [id number] - JANINE DIG SCREEN CAD RUBÉN - BILATERAL / PROCEDURE REASON: Encounter for screening mammogram for malignant neoplasm of breast * * * * Physician Interpretation * * * * RESULT: #[id number] - JANINE DIG SCREEN CAD RUBÉN BILATERAL DIGITAL SCREENING MAMMOGRAM WITH CAD: 11/04/2017 HISTORY: Encounter For Screening Mammogram For Malignant Neoplasm Of Breast\ Screening Mammogram - patient reports NO breast symptoms /priors available for comparison. RESULT: TECHNIQUE: The study was acquired using full field digital technology and interpreted from soft copy. Current study was also evaluated with a Computer Aided Detection (CAD). Comparison is made to exams dated: 11/01/2016 mammogram - [facility], 10/30/2015 mammogram - [facility], 09/21/2014 mammogram - [facility], and 08/25/2014 mammogram - [facility]. There are scattered fibroglandular elements in both breasts. No significant masses, calcifications, or other findings are seen in either breast. There has been no significant interval change. IMPRESSION: NEGATIVE There is no mammographic evidence of malignancy.A 1 year screening mammogram is recommended. Rashida jacome/domenic:11/04/2017 16:33:01 Fabrication Operator: Elizabeth MUNOZ(Barbara)(Sisi), [facility] letter sent: Normal over 40 Mammogram BI-RADS: 1 Negative Skydiving Instructor: Domenic Transcribe Date/Time: Nov 04 2017 10:55A Dictated by: RASHIDA VILLELA MD This examination was interpreted and the report reviewed and electronically signed by: RASHIDA VILLELA MD on Nov 04 2017 4:33PM [place] [facility] Observed: 11/04/2017 Status: COMPLETED Source: [place] 12:00 AM [facility] REPOSITORY Telephone (NAVWST) GAY COLEMAN ([id number]) 1965 F Date Time Provider Department 11/04/17 JOYCE SOSA (CINDY) DASH During your visit today, we recorded the following information about you: ROSA Singh 11/04/2017 10:23 AM Signed Patient called Sw and she received information request from [employer] for her disability claim Sw assisted her with. Patient will come in today 11/04/17 @2pm to bring in forms to have Sw review and provide assistance. ROSA Singh 11/04/2017 2:59 PM Signed Patient brought in SS forms. Patient asked Sw to review forms with her. Sw and patient looked at questions and patient discussed what questions meant to her to see if she had understanding of what they were asking. Sw unable to help patient fill out forms as doctor/hospital unable to fill out forms. Patient will work on completing forms and send in to [employer]. Allergies As of Date: 11/04/2017 Noted Allergy Reaction DUST 12/26/2006 NABUMETONE 10/04/2014 8 - GI Upset SEASONAL ALLERGIES 06/19/2015 14 - Other: See Comments SMOKE 12/26/2006 THIMERISOL (THIMEROSAL) 01/09/2016 5 - Intolerance Date Reviewed: 10/13/2017 Reviewed by: Carri ([facility]) Sherri - Fully Assessed Reason for Visit: Social Work Services [507] Prescriptions as of 11/04/2017 Sig: BUPROPION HCL SR 150 MG TABLE* TAKE ONE TABLET BY MOUTH TWIC* ALBUTEROL SULFATE HFA 90 MCG/* Inhale 2 Puffs as instructed * IXEKIZUMAB 80 MG/ML SUBCUTANE* Inject subcutaneously. FLUTICASONE 110 MCG/ACTUATION* Inhale 1 Puff as instructed t* ALBUTEROL SULFATE 2.5 MG/3 ML* Use 3 mL via nebulizer every * FLUOXETINE 40 MG CAPSULE Take 1 capsule by mouth once * DICLOFENAC SODIUM 75 MG TABLE* Take 1 tablet by mouth twice * DICLOFENAC 1 % TOPICAL GEL Apply to affected area four * MIRABEGRON ER 25 MG TABLET,EX* Take 1 tablet by mouth once d* LINACLOTIDE 290 MCG CAPSULE Take 1 capsule by mouth once * PREGABALIN 75 MG CAPSULE Take 75 mg by mouth three justino* CONJUGATED ESTROGENS 0.9 MG T* Take 1 tablet by mouth once d* MIRTAZAPINE 30 MG TABLET Take 1 tablet by mouth daily * BACLOFEN 10 MG TABLET Take 1 tablet by mouth twice * Patient taking differently: Take 10 mg by mouth three justino* USTEKINUMAB 90 MG/ML SUBCUTAN* Inject subcutaneously. TRANSCUTANEOUS ELECTRICAL NER* 1 Device as needed. COMPOUNDED PRESCRIPTION Order: cock up splints (2) D* CHOLECALCIFEROL (VITAMIN D3) * Take 5,000 Units by mouth onc* CYANOCOBALAMIN (VIT B-12) 1,0* Take 1,000 mcg by mouth once * DOCUSATE SODIUM 250 MG CAPSULE Take 250 mg by mouth once sudhakar* Problem List As Of Date 11/04/2017 Noted Resolved Migraine without aura [346.1] INVALID FOR*07/28/2017 Dysthymia [F34.1] INVALID FOR* Perimenopausal [N95.1] INVALID FOR*07/28/2017 Breast hypertrophy [N62] INVALID FOR* Bloating [R14.0] Constipation [K59.00] Adnexal mass [N94.9] INVALID FOR*10/31/2016 Flatulence, eructation, and gas pain [R14.3, R1*INVALID FOR*01/26/2015 Unspecified constipation [K59.00] INVALID FOR*01/26/2015 Midline low back pain without sciatica [M54.5] INVALID FOR* Intervertebral disc disorder with radiculopathy*INVALID FOR* DDD (degenerative disc disease), lumbar [M51.36]INVALID FOR* Cervical disc disorder with radiculopathy [M50.*INVALID FOR* DDD (degenerative disc disease), cervical [M50.*INVALID FOR* Carpal tunnel syndrome, bilateral [G56.03] INVALID FOR*07/28/2017 Asthma [J45.909] INVALID FOR* OLGA (obstructive sleep apnea) [G47.33] INVALID FOR* More... Psoriasis [L40.9] INVALID FOR* OAB (overactive bladder) [N32.81] INVALID FOR* Impaired fasting glucose [R73.01] INVALID FOR* Exercise-induced asthma [J45.990] INVALID FOR* Obesity, Class III, BMI 40-49.9 (morbid obesity*INVALID FOR* Irritable bowel syndrome with constipation [K58*INVALID FOR* ANDREW (generalized anxiety disorder) [F41.1] INVALID FOR* Neck mass [R22.1] INVALID FOR* Encounter Status:Closed by JOYCE TOLENTINO on 11/04/17 Observed: 10/29/2017 Status: F Source: [place] CULTURE, BODY FLUID 10:45 AM [facility] REPOSITORY List Antibiotics Last 48 Hours? . List Antibiotics to be Started? . Comments: POST OP SEROMA Gram Stain Centrifuged Specimen? Culture performed on centrifuged specimen Gram Stain 2+ White Blood Cells 2+ Red Blood Cells 2+ Gram positive cocci in clusters Body Fluid Cult ORGANISM 1: Staphylococcus epidermidis Amount Growth Rare Staphylococcus epidermidis: REACTION Benzylpenicillin NF >=0.5 R Cefoxitin *NF + Clindamycin $$ >=8 R Inducable Clindamycin [place] - Erythromycin $ >=8 R Gentamicin $ <=0.5 S Levofloxacin $ <=0.12 S Linezolid $$$$ 1 S Oxacillin NF >=4 R Tigecycline $$$$ 0.5 S Rifampin $$ <=0.5 S Tetracycline NF >=16 R Vancomycin $ 2 S (NF) indicates non-formulary drug at [facility]. Approval by Infectious Disease Specialist required before non-formulary drugs may be ordered and/or dispensed. * CLSI guidelines does not recommend testing of cephalosporins. This interpretation is deduced from Beta-lactam/penicillin results. Cult, Anaerobic No anaerobic bacteria isolated. Performed By: #### M100.1300 #### [facility] [address] [place], [address] CYST PUNCTURE Observed: 10/29/2017 Status: F Source: [place] 10:07 AM [facility] REPOSITORY [facility] Imaging Services [address] [place] [address] Cyst Puncture MR#: [id number] Acct: [id number] Name: SUDHAKARHORACIOGAY K Rep #: [id number] : 1965 F 51 From: Dedrick Garcia MD PCP: Everton Acevedo DO Status: REG CLI Study: Cyst Puncture Date of Exam: 10/29/17 Exam# [id number] Ordering Dr: Bonilla Alvarez MD PROCEDURE: Drainage of postoperative right midline posterior neck base seroma. DATE OF EXAMINATION: 29 October 2017. INDICATION: Female, 51 years old. Postoperative seroma. PHYSICIAN: Dedrick Garcia CONSENT: The risks, benefits and alternatives to the procedure were explained to the patient, and the patient agreed to the procedure and signed the consent. SEDATION: None. STERILE BARRIER TECHNIQUE: The following sterile barrier precautions were used during the procedure: hand hygiene; use of 2% chlorhexidine aseptic; use of a cap, mask, sterile gown, sterile gloves, sterile full body drape, and a large sterile sheet. PROCEDURE/TECHNIQUE: (All elements of maximal sterile barrier technique followed, including US elements as applicable) The risks, benefits, and alternatives to the procedure were explained to patient, and the patient agreed to the procedure and signed a consent form for the procedure. A timeout was performed to confirm the patient's identity, the type of procedure, to be performed and the site of entry. The midline seroma was positively visualized with sonography. An intended percutaneous site identified. Local anesthesia was obtained with approximately 1.5 cc of 1% lidocaine without epinephrine. The fluid collection was easily accessed under ultrasound guidance and approximately 18 cc of serosanguineous fluid was removed and passed off for laboratory evaluation. US/Cyst Puncture IMPRESSION: Successful, ultrasound-guided postoperative seroma drainage. Complication: The patient tolerated the procedure well without evident immediate post procedure complication. Electronically Signed: Dedrick Garcia MD at 11:22 EST , Service support , CC: Bonilla Alvarez MD; Everton Acevedo DO Skydiving Instructor: Signed PROTHROMBIN TIME W/INR Collected: 10/23/2017 Status: F Source: [place] 2:38 PM [facility] REPOSITORY TYPE CODE TESTS RESULT OUT OF RANGE REFERENCE UNITS LAB L300.4150 11.7-14.9 SECONDS Normal PROTIME 13.3 LAB L300.4200 Normal INR 1.1 Performed By: #### L300.3900 #### [facility] [place], [place], [address] PROGRESS Observed: 10/21/2017 Status: COMPLETED Source: [place] 11:06 AM [facility] [place] REPOSITORY HNO ID: [id number] Author: Ehsan Sterling Service: (none) Author Type: Psychologist Type: Progress Notes Filed: 10/23/2017 11:20 AM Note Text: [facility] Progress Note Gay Coleman 10/21/2017 [id number] Provider: Ehsan Vasquez PSYD CPT Code: 38131 Psychotherapy 38-52 minutes Time: Approximately 45 minutes was spent in therapy. Parties Present: Patient Patient Presentation/Concerns: Gay was sad and ruminative about the upcoming holidays. She was very tearful. Discussed her plans and ways of coping. Focus on CBT and relationship with Inocente, her . Mental Status: Mood: neutral Affect: mood-congruent Thoughts/Associations:goal directed Suicidal/Homicidal Ideation: None expressed or evidenced Other Observations: None Therapy Focus Mood/affect regulation MEDICATIONS: Per medical record: Current Outpatient Prescriptions: doxycycline monohydrate (MONODOX) 100 mg capsule Take 1 capsule by mouth twice daily for 10 days. buPROPion SR (ZYBAN SR; WELLBUTRIN SR) 150 mg 12 hr tablet TAKE ONE TABLET BY MOUTH TWICE DAILY albuterol HFA (VENTOLIN HFA) 90 mcg/actuation inhaler Inhale 2 Puffs as instructed every 4 hours as needed for Wheezing/Shortness of Breath. ixekizumab (TALTZ AUTOINJECTOR, 2 PACK,) 80 mg/mL AutoInjector Inject subcutaneously. fluticasone (FLOVENT) 110 mcg/actuation inhaler Inhale 1 Puff as instructed twice daily. albuterol (PROVENTIL) 2.5 mg /3 mL (0.083 %) nebulizer solution Use 3 mL via nebulizer every 4 hours as needed for Wheezing/Shortness of Breath. Use over 5-15minutes. FLUoxetine HCl (PROZAC) 40 mg capsule Take 1 capsule by mouth once daily. diclofenac, EC, (VOLTAREN) 75 mg EC tablet Take 1 tablet by mouth twice daily. For pain/inflammation. Take with food. PER DR. MALONE diclofenac sodium (VOLTAREN) 1 % topical gel Apply to affected area four times daily. PER DR. MALONE mirabegron (MYRBETRIQ) 25 mg Tb24 Take 1 tablet by mouth once daily. linaclotide (LINZESS) 290 mcg cap Take 1 capsule by mouth once daily. pregabalin (LYRICA) 75 mg capsule Take 75 mg by mouth three times daily. estrogens conjugated (PREMARIN) 0.9 mg tablet Take 1 tablet by mouth once daily. mirtazapine (REMERON) 30 mg tablet Take 1 tablet by mouth daily at bedtime. baclofen (LIORESAL) 10 mg tablet Take 1 tablet by mouth twice daily. (Patient taking differently: Take 10 mg by mouth three times daily.) Ustekinumab (STELARA) 90 mg/mL syrg Inject subcutaneously. TENS Units malika 1 Device as needed. COMPOUNDED PRESCRIPTION Order: cock up splints (2)Dx: carpal tunnel syndrome bilateral Cholecalciferol, Vitamin D3, 5,000 unit tab Take 5,000 Units by mouth once daily. cyanocobalamin (VITAMIN B-12) 1,000 mcg tab Take 1,000 mcg by mouth once daily. Docusate Sodium 250 mg capsule Take 250 mg by mouth once daily. No current facility-administered medications for this visit. Psychiatric Medication Issues: No change from previous appointment DIAGNOSIS: Diagnosis: Major Depressive Disorder, Recurrent, Mild Binge Eating Disorder Treatment Modality/Interventions: Cognitive Behavioral TREATMENT PLAN/GOALS: Continue in therapy focusing on affect management. Next appointment: 2 weeks Ehsan Vasquez PSYD ALLERGIES ALLERGIES DATE TYPE / CODE NAME / CODE REACTION SEVERITY SOURCE Drug oxycodone Other Unknown Jo[place] 8 Allergy/419506738( HCl/V273899816( Community SNOMED CT) RXNORM) Hospital Repository Drug naproxen/H05002 Other Unknown [place] 8 Allergy/166648495( 2380(RXNORM) [facility] SNOMED CT) Hospital Repository Drug thimerosal/F006 Other Unknown [place] Allergy/344152984( 453523(RXNORM) [facility] SNOMED CT) Hospital Repository Drug nabumetone/F006 Hives Unknown [place] 8 Allergy/492198676( 463875(RXNORM) [facility] SNOMED CT) Hospital Repository Miscellaneous birds Other Unknown Joellen 8 Allergy/680205210( [facility] SNOMED CT) Hospital Repository Miscellaneous molds Other Unknown [place] 8 Allergy/450085181( Community SNOM[facility]) Hospital Repository Miscellaneous seasonal Other Unknown Joellen 8 Allergy/841521213( Community SNOMED [facility]) Hospital Repository Drug acetaminophen/F Other Unknown [place] 8 Allergy/207404500( 025407581(RXNOR Community SNOMED CT) M) Hospital Repository DRUG THIMEROSAL INTOLERANCE [place] INGREDI/034411476( Clinic Main SNOMED CT) [place] Repository Environ/096968564( SEASONAL OTHER: SEE C [place] [address]) ALLERGIES Clinic Main [place] Repository DRUG NABUMETONE GI UPSET [place] INGREDI/189243284( Clinic Main SNOMED CT) [place] Repository Environ/559469099( DUST [place] [address]) Clinic Main [place] Repository Environ/777826852( SMOKE [place] [address]) Clinic Main [place] Repository ENCOUNTERS ENCOUNTERS ADMIT/DISCHARGE ACCOUNT NUMBER ADMITTING ENCOUNTER LOCATION SOURCE CLASS 10/20/2018/10/20/20 [id number] Main [place] Repository 10/20/2018/10/20/20 [id number] Ambulatory [address] Repository 10/20/2018 [id number] Ambulatory [facility] Repository 10/20/2018/10/20/20 [id number] Ambulatory [address] Repository 10/19/2018/10/20/20 [id number] Ambulatory [address] Repository 10/19/2018 [id number] Ambulatory [place] [facility] [place] Repository 10/15/2018/10/15/20 [id number] Ambulatory BMSBuilding: [place] 18 BMS.[facility] Repository 10/15/2018/10/19/20 [id number] Ambulatory [address] Repository 10/15/2018/10/15/20 [id number] Ambulatory [address] Repository 10/12/2018/10/14/20 [id number] Ambulatory [address] [place] Repository 10/08/2018/10/12/20 [id number] Ambulatory [address] Repository 10/08/2018/10/09/20 [id number] Ambulatory [address] Main [place] Repository 10/05/2018/10/06/20 [id number] Ambulatory [address] Repository 10/02/2018/10/05/20 [id number] Ambulatory [address] Repository 10/02/2018/10/02/20 [id number] Ambulatory [place] [address] ding:[place] Repository 10/01/2018/10/05/20 [id number] Ambulatory [address] Repository 10/01/2018/10/09/20 [id number] Ambulatory [address] Repository 09/29/2018 [id number] [facility] Repository 09/29/2018/09/29/20 [id number] Ambulatory BMSBuilding: Joellen 18 BMS.[facility] Repository 09/28/2018/09/28/20 [id number] Ambulatory BMSBuilding: Jo[place] 18 BMS.[facility] Repository 09/21/2018/09/21/20 [id number] Ambulatory BMSBuilding: [place] 18 BMS.[facility] Repository 09/17/2018 [id number] Ambulatory BMSBuilding: [place] BMS.CF.[facility] Repository 09/17/2018/09/17/20 [id number] Ambulatory Jo[place] [address] [place] [address] ding:SDCRoom Repository : AC07 09/16/2018 [id number] Ambulatory BMSBuilding: [place] BMS.CF.[facility] Repository 09/16/2018/09/22/20 [id number] Ambulatory [address] Repository 09/10/2018/10/12/20 [id number] Ambulatory [address] Repository 09/10/2018/09/10/20 [id number] Ambulatory [address] Repository 09/02/2018/09/02/20 [id number] Ambulatory [place] [address] [place] [address] ding:[place] Repository 09/01/2018/09/08/20 [id number] Ambulatory [address] Repository 08/28/2018/10/29 [id number] Ambulatory [address] Main [place] Repository 08/13/2018 [id number] Ambulatory [place] [facility] ding:NS Repository 08/11/2018/08/12/20 [id number] Ambulatory [address] Repository 08/04/2018/08/11/20 [id number] Ambulatory [address] Repository 07/31/2018 [id number] Ambulatory [facility] ding:PSN Repository 07/31/2018 [id number] Ambulatory BMSBuilding: Joellen [facility] Repository 07/28/2018/08/06/20 [id number] Ambulatory [address] Repository 07/27/2018 [id number] Ambulatory [facility] ding[place] Repository 07/23/2018/07/23/20 [id number] Ambulatory BMSBuilding: Joellen 18 [facility] Repository 07/23/2018/07/23/20 [id number] Ambulatory [address] [place] Repository 07/22/2018/08/05/20 [id number] Ambulatory [address] [place] Repository 07/14/2018/07/21/20 [id number] Ambulatory [address] [place] Repository 07/10/2018/08/02/20 [id number] Ambulatory [address] ding:[place] Repository 07/08/2018/10/15/20 [id number] Ambulatory [address] Main [place] Repository 07/07/2018/07/16/20 [id number] Ambulatory [address] Main [place] Repository 07/01/2018/07/16/20 [id number] Ambulatory [address] Main [place] Repository 06/24/2018/07/01/20 [id number] Ambulatory [address] Main [place] Repository 06/17/2018/06/25/20 [id number] Ambulatory [address] [place] Repository 06/05/2018/07/03/20 [id number] Ambulatory [place] ding:[place] Repository 06/04/2018/06/10/20 [id number] Ambulatory [address] [place] Repository 05/29/2018/05/29/20 [id number] Ambulatory [address] Main [place] Repository 05/29/2018/06/01/20 [id number] Ambulatory [address] Main [place] Repository 05/26/2018/05/27/20 [id number] Ambulatory [address] [place] Repository 05/15/2018/05/15/20 [id number] Ambulatory BBuilding:OS Beat[place] 18 [facility]: [facility] 0001Bed: B [facility] Repository 05/11/2018/05/11/20 [id number] Ambulatory [place] [address] ding:[place] Repository 05/05/2018/05/05/20 [id number] Ambulatory [address] ding:OPRS [facility] Repository 05/05/2018/05/07/20 [id number] Ambulatory [address] Repository 05/01/2018/05/02/20 [id number] Ambulatory Joellen [address] ding:[place] Repository 04/30/2018/04/30/20 [id number] Ambulatory [address] [place] Repository 04/30/2018/04/30/20 [id number] Ambulatory [address] [place] Repository 04/27/2018/04/28/20 [id number] Ambulatory [address] Repository 04/23/2018/04/24/20 [id number] Ambulatory [address] [place] Repository 04/22/2018/05/14/20 [id number] Ambulatory [address] Main [place] Repository 04/15/2018/04/15/20 [id number] Ambulatory [address] [place] Repository 04/13/2018/04/14/20 [id number] Ambulatory [address] [place] Repository 04/13/2018/04/14/20 [id number] Ambulatory [address] [place] Repository 04/13/2018 [id number] [facility] Repository 04/08/2018/04/16/20 [id number] Ambulatory [address] Repository 04/07/2018/04/08/20 [id number] Ambulatory [address] Repository 04/03/2018 [id number] [facility]SD[facility] Repository 04/01/2018/04/09/20 [id number] Ambulatory [address] Repository 03/31/2018 [id number] Ambulatory BMSBuilding: [place] BMS.CF.[facility] Repository 03/25/2018/04/01/20 [id number] Ambulatory [address] Repository 03/24/2018/03/25/20 [id number] Ambulatory [address] Repository 03/23/2018/03/23/20 [id number] Ambulatory [place] Joellen [address] [place] [address] ding:SDC Repository 03/20/2018/04/02/20 [id number] Ambulatory Joellen [address] ding:[place] Repository 03/18/2018/03/20/20 [id number] Ambulatory [address] Repository 03/18/2018/03/24/20 [id number] Ambulatory [address] Repository 03/17/2018/03/19/20 [id number] Ambulatory [address] Repository 03/12/2018/03/12/20 [id number] Ambulatory [address] Repository 03/11/2018/03/18/20 [id number] Ambulatory [address] Repository 03/09/2018/04/02/20 [id number] Ambulatory Joellen [address] ding:[place] Repository 03/09/2018 [id number] Ambulatory BMSBuilding: [place] BMS.CF.[facility] Repository 03/06/2018/03/10/20 [id number] Ambulatory [address] Repository 03/04/2018/03/12/20 [id number] Ambulatory [address] Repository 03/03/2018/03/04/20 [id number] Ambulatory [address] Repository 02/25/2018/03/12/20 [id number] Ambulatory [address] Repository 02/24/2018/02/26/20 [id number] Ambulatory [address] Repository 02/23/2018/03/02/20 [id number] Ambulatory [place] Joellen [address] [place] [address] ding:[place] Repository 02/23/2018 [id number] Ambulatory BMSBuilding: [place] BMS.CF.[facility] Repository 02/18/2018/03/05/20 [id number] Ambulatory [address] [place] Repository 02/11/2018/02/20/20 [id number] Ambulatory [address] Repository 02/09/2018 [id number] Ambulatory BMSBuilding: [place] BMS.CF.[facility] Repository 02/06/2018/03/02/20 [id number] Ambulatory Joellen[address] ding:[place] Repository 02/02/2018/02/03/20 [id number] Ambulatory [address] Repository 01/27/2018/02/17/20 [id number] Ambulatory [address] Repository 01/26/2018 [id number] Ambulatory [facility] ding:PSN Repository 01/26/2018 [id number] Ambulatory BMSBuilding: Joellen [facility] Repository 01/21/2018/01/30/20 [id number] Ambulatory [address] Repository 01/20/2018/01/21/20 [id number] Ambulatory [address] Repository 01/20/2018/01/22/20 [id number] Ambulatory [address] Repository 01/19/2018/02/01/20 [id number] Ambulatory Joellen[address] ding:[place] Repository 01/19/2018 [id number] Ambulatory BMSBuilding: [place] BMS.CF.[facility] Repository 01/16/2018/02/01/20 [id number] Ambulatory Joellen[address] ding:[place] Repository 01/14/2018/01/23/20 [id number] Ambulatory [address] [place] Repository 01/07/2018/01/21/20 [id number] Ambulatory [address] Repository 01/05/2018 [id number] Ambulatory BMSBuilding: Joellen BMS.CF.[facility] Repository 12/29/2017/01/03/20 [id number] Ambulatory [address] Repository 12/26/2017/12/26/19 [id number] Ambulatory BMSBuilding: [place] 18 BMS.[facility] Repository 12/20/2017/12/20/19 [id number] Ambulatory [address] Repository 12/08/2017/12/31/19 [id number] Ambulatory [place] [address] ding: Repository 12/08/2017 [id number] Ambulatory BMSBuilding: [place] BMS.CF.[facility] Repository 12/08/2017 [id number] Ambulatory BMSBuilding: Joellen [facility] Repository 12/03/2017/12/11/19 [id number] Ambulatory [address] Repository 11/28/2017 [id number] Ambulatory BMSBuilding: [place] BMS.CF.[facility] Repository 11/27/2017/11/29/19 [id number] Ambulatory [place] ding:SDCRoom Repository : MS302 11/27/2017 [id number] Ambulatory BMSBuilding: [place] BMS.CF.[facility] Repository 11/26/2017 [id number] Ambulatory BMSBuilding: Joellen BMS.CF.[facility] Repository 11/25/2017/11/25/19 [id number] Ambulatory [address] Repository 11/25/2017/12/04/19 [id number] Ambulatory [address] Repository 11/19/2017/11/19/19 [id number] Ambulatory BMSBuilding: [place] 18 BMS.[facility] Repository 11/19/2017/11/28/19 [id number] Ambulatory [address] Repository 11/14/2017/11/14/19 [id number] Ambulatory BMSBuilding: Joellen 18 BMS.[facility] Repository 11/12/2017 [id number] Ambulatory Joellen [facility] ding: Repository 11/11/2017/11/20/19 [id number] Ambulatory [address] Repository 11/07/2017/11/07/19 [id number] Ambulatory BMSBuilding: Joellen 18 BMS.[facility] Repository 11/04/2017/11/04/19 [id number] Ambulatory [address] Repository 10/30/2017/10/30/20 [id number] Ambulatory BMSBuilding: Joellen 17 BMS.[facility] Repository 10/29/2017 [id number] Ambulatory [facility] ding:[place] Repository 10/23/2017 [id number] Ambulatory [facility] ding:MTLAB Repository 10/22/2017/10/22/20 [id number] Ambulatory BMSBuilding: Joellen 17 BMS.[facility] Repository 10/21/2017/10/24/20 [id number] Ambulatory [address] Repository 10/10/2017/10/10/20 [id number] Ambulatory BMSBuilding: [place] 17 BMS.[facility] Repository PAYERS PAYERS ENCOUNTER GUARANTOR PAYER SUBSCRIBER SOURCE 10/19/2018 GAY Castro Primary INOCENTE [place] [id number] Insurance:MEDICAL DAIBERDOB: [address] Number: Repository [address]Vkw: 330 [id number] [phone] () Date:6357-84-77[place] [id number]: 10/19/2018 Secondary NOT GIVENUNK Joellen Insurance:SELF PAY [facility] Number: Effective Repository Date:2018-10-03 10/15/2018 GAY Matthew Primary INOCENTE [place] [id number] Insurance:MEDICAL DAIBERDOB: [address] Number: Repository [address]Opr: 330 [id number] [phone] () Date:6948-42-43KC [address] [place] [address]BI: 10/15/2018 Secondary NOT GIVENUNK [place] Insurance:SELF PAY [facility] Number: Effective Repository Date:2018-10-15 10/02/2018 GAY Matthew Primary INOCENTE [place] [id number] Insurance:MEDICAL DAIBERDOB: [address] Number: Repository [id number]: 330 [id number] [phone] (HP) Date:9891-60-26NH [address] [address]EI: 10/02/2018 Secondary NOT GIVENUNK [place] Insurance:SELF PAY [facility] Number: Effective Repository Date:2018-09-03 09/29/2018 GAY K Primary INOCENTE E [place] [id number] Insurance:MEDICAL DAIBERDOB: [address] Number: Repository [address]Foe: 330 [id number] [phone] () Date:2296-56-24CU [address] [address]VE: 09/29/2018 Secondary NOT GIVENUNK [place] Insurance:SELF PAY [facility] Number: Effective Repository Date:2018-09-29 09/29/2018 GAY K Primary INOCENTE E [place] [id number] Insurance:MEDICAL DAIBERDOB: [address] Number: Repository [address]Uql: 330 [id number] [phone] () Date:3924-44-18XQ [address] [address]XQ: 09/29/2018 Secondary NOT GIVENUNK [place] Insurance:SELF PAY [facility] Number: Effective Repository Date:2018-09-29 09/28/2018 GAY K Primary INOCENTE E [place] [id number] Insurance:MEDICAL DAIBERDOB: [address] Number: Repository [id number]: 330 [id number] [phone] () Date:7656-99-92MJ [address] [address]EL: 09/28/2018 Secondary NOT GIVENUNK Joellen Insurance:SELF PAY [facility] Number: Effective Repository Date:2018-09-28 09/21/2018 GAY K Primary INOCENTE E [place] [id number] Insurance:MEDICAL DAIBERDOB: [facility] [id number] Number: Repository [address]Ygh: 330 [id number] [phone] () Date:6699-48-17UD [address] [address]QN: 09/21/2018 Secondary NOT GIVENUNK Joellen Insurance:SELF PAY [facility] Number: Effective Repository Date:2018-09-21 09/17/2018 GAY K Primary INOCENTE E [place] [id number] Insurance:MEDICAL DAIBERDOB: [facility] [id number] Number: Repository [address]Jnu: 330 [id number] [phone] (HP) Date:3902-73-94PH [address] [address]OQ: 09/17/2018 Secondary NOT GIVENUNK Joellen Insurance:SELF PAY [facility] Number: Effective Repository Date:2018-09-17 09/17/2018 GAY K Primary INOCENTE E [place] [id number] Insurance:MEDICAL DAIBERDOB: [facility] [id number] Number: Repository [address]Coq: 330 [id number] [phone] () Date:4776-06-02HJ [address] [address]UA: 09/17/2018 Secondary NOT GIVENUNK Joellen Insurance:SELF PAY [facility] Number: Effective Repository Date:2018-08-03 09/16/2018 GAY Castro Primary INOCENTE E [place] [id number] Insurance:MEDICAL DAIBERDOB: [place] [id number] Number: Repository [address]Wry: 330 [id number] [phone] (HP) Date:1113-86-10BD [address] [address]AB: 09/16/2018 Secondary NOT GIVENUNK [place] Insurance:SELF PAY [facility] Number: Effective Repository Date:2018-09-16 09/02/2018 GAY Castro Primary INOCENTE [place] [id number] Insurance:MEDICAL DAIBERDOB: [address] Number: Repository [id number]: 330 [id number] [phone] () Date:7294-27-16TQ [address] [address]BW: 09/02/2018 Secondary NOT GIVENUNK Joellen Insurance:SELF PAY [facility] Number: Effective Repository Date:2018-07-27 08/13/2018 GAY Castro Primary INOCENTE [place] [id number] Insurance:MEDICAL DAIBERDOB: [address] Number: Repository [address]Amh: 330 [id number] [phone] () Date:7608-68-86DD [address] [address]EN: 08/13/2018 Secondary NOT GIVENUNK [place] Insurance:SELF PAY [facility] Number: Effective Repository Date:2018-08-03 07/31/2018 GAY Castro Primary [place]OCENTE [place] [id number] Insurance:MEDICAL DAIBERDOB: [address] Number: Repository [address]Xzz: 330 [id number] [phone] () Date:6933-71-54QK [address] [address]GZ: 07/31/2018 Secondary NOT GIVENUNK Joellen Insurance:SELF PAY [facility] Number: Effective Repository Date:2018-07-27 07/31/2018 GAY Castro Primary INOCENTE [place] [id number] Insurance:MEDICAL DAIBERDOB: [address] Number: Repository [address]Lxi: 330 [id number] [phone] (HP) Date:2389-47-32BX [address] [address]VE: 07/31/2018 Secondary NOT GIVENUNK Joellen Insurance:SELF PAY [facility] Number: Effective Repository Date:2018-07-31 07/27/2018 GAY Matthew Primary INOCENTE [place] [id number] Insurance:MEDICAL DAIBERDOB: [address] Number: Repository [id number]: 330 [id number] [phone] (HP) Date:1516-61-74XD [address] [address]IU: 07/27/2018 Secondary NOT GIVENUNK Joellen Insurance:SELF PAY [facility] Number: Effective Repository Date:2018-07-21 07/23/2018 GAY Matthew Primary Inocente [place] [id number] Insurance:MEDICAL DaiberDOB: [address] Number: Repository [address]Hqr: 330 [id number] [phone] () Date:2683-89-38ZE [address] [address]UW: 07/23/2018 Secondary NOT GIVENUNK [place] Insurance:SELF PAY [facility] Number: Effective Repository Date:2018-07-23 07/10/2018 GAY Matthew Primary Inocente [place] [id number] Insurance:MEDICAL DaiberDOB: [address] Number: Repository [id number]: 330 [id number] [phone] () Date:0196-79-00AV [address] [address]ZJ: 07/10/2018 Secondary NOT GIVENUNK Joellen Insurance:SELF PAY [facility] Number: Effective Repository Date:2018-07-04 06/05/2018 GAY Matthew Primary Inocente E [place] [id number] Insurance:MEDICAL DaiberDOB: [facility] [id number] Number: Repository [address]Ggz: 330 [id number] [phone] (HP) Date:9100-86-[address] [address]TT: 06/05/2018 Secondary NOT GIVENUNK Joellen Insurance:SELF PAY [facility] Number: Effective Repository Date:2018-05-03 05/15/2018 GAY VIRGINIADOB: Primary INOCENTE DAIBERDOB: [facility] [id number] Insurance:MEDICAL [id number] [address] Repository [facility] [place] Number: [place] [address]Tzj: 330 [id number] [address]Qkt: (HP) Date:2018-04-27 [phone] () 2584-89-85Ccye Name:[address] [address]AN: 05/11/2018 GAY Castro Primary Inocente E [place] [id number] Insurance:MEDICAL DaiberDOB: [facility] [id number] [facility] [place] Number: Repository [address]Nxe: 330 [id number] [phone] (HP) Date:8203-19-76ZT [address] [address]DU: 05/11/2018 Secondary NOT GIVENUNK Joellen Insurance:SELF PAY [facility] Number: Effective Repository Date:2018-04-08 05/05/2018 GAY COLEMANDOB: Primary INOCENTE DAIBERDOB: [facility] [id number] Insurance:MEDICAL [id number] [address] Repository [facility]ITAL[facility] [place] Number: [place] [address]Kua: (915) [id number] [address]Nan: (HP) Date:2018-04-27 000-0000 () 2388-58-34Byrb Name:[address] [address]EM: 05/01/2018 GAY [facility] [place] [id number] Insurance:MEDICAL DaiberDOB: [facility] [place] Number: Repository [address]Ibv: 330 [id number] [phone] () Date:0451-97-48VW [address] [address]LH: 05/01/2018 Secondary NOT GIVENUNK [place] Insurance:SELF PAY [facility] Number: Effective Repository Date:2018-04-03 04/13/2018 GAY [facility] [place] [id number] Insurance:MEDICAL DaiberDOB: [facility] [id number] Number: Repository [address]Odv: 330 [id number] [phone] () Date:6374-62-23DW[address] [address]TF: 04/13/2018 Secondary NOT GIVENUNK [place] Insurance:SELF PAY [facility] Number: Effective Repository Date:2018-04-03 04/03/2018 GAY [facility] [place] [id number] Insurance:MEDICAL DaiberDOB: [facility] [id number] Number: Repository [id number]: 330 [id number] [phone] () Date:3506-73-11RA [address] [address]RN: 04/03/2018 Secondary NOT GIVENUNK [place] Insurance:SELF PAY [facility] Number: Effective Repository Date:2018-02-23 03/31/2018 GAY [facility] [place] [id number] Insurance:MEDICAL DaiberDOB: [place]326-[place] Number: Repository [address]Pfq: 330 [id number] [phone] (HP) Date:5386-72-25RA [address] [address]RF: 03/31/2018 Secondary NOT GIVENUNK [place] Insurance:SELF PAY [facility] Number: Effective Repository Date:2018-03-31 03/23/2018 GAY Castro [facility] [place] [id number] Insurance:MEDICAL DaiberDOB: Community [address] Number: Repository [address]Lre: 330 [id number] [phone] (HP) Date:5669-36-37OM [address] [address]FW: 03/23/2018 Secondary NOT GIVENUNK [place] Insurance:SELF PAY [facility] Number: Effective Repository Date:2018-03-17 03/20/2018 GAY Castro [facility] [place] [id number] Insurance:MEDICAL DaiberDOB: [address] Number: Repository [address]Zmf: 330 [id number] [phone] () Date:7843-54-40XI [address] [address]KK: 03/20/2018 Secondary NOT GIVENUNK [place] Insurance:SELF PAY [facility] Number: Effective Repository Date:2018-03-03 03/09/2018 GAY Castro [facility] [place] [id number] Insurance:MEDICAL DaiberDOB: [place] [address]326-[place] Number: Repository [address]Dkk: 330 [id number] [phone] (HP) Date:5366-02-09DM[address] [address]GK: 03/09/2018 Secondary NOT GIVENUNK [place] Insurance:SELF PAY [facility] Number: Effective Repository Date:2018-03-03 03/09/2018 GAY Castro [facility] [place] [id number] Insurance:MEDICAL DaiberDOB: [address] Number: Repository [address]Ttz: 330 [id number] [phone]) Date:0287-07-88XB[address] [address]FO: 03/09/2018 Secondary NOT GIVENUNK [place] Insurance:SELF PAY [facility] Number: Effective Repository Date:2018-03-09 02/23/2018 GAY [facility] [place] [id number] Insurance:MEDICAL DaiberDOB: [address] Number: Repository [address]Tmn: 330 [id number] [phone] (HP) Date:1723-01-80FW[address] [address]NM: 02/23/2018 Secondary NOT GIVENUNK [place] Insurance:SELF PAY [facility] Number: Effective Repository Date:2018-02-01 02/23/2018 GAY Castro [facility] [place] [id number] Insurance:MEDICAL DaiberDOB: [address] Number: Repository [address]Jih: 330 [id number] [phone] (HP) Date:0901-81-89TH [address] [address]VL: 02/23/2018 Secondary NOT GIVENUNK [place] Insurance:SELF PAY [facility] Number: Effective Repository Date:2018-02-23 02/09/2018 GAY [facility] [place] [id number] Insurance:MEDICAL DaiberDOB: [address] Number: Repository [address]Kxc: 330 [id number] [phone] (HP) Date:5385-34-18YQ[address] [address]NY: 02/09/2018 Secondary NOT GIVENUNK [place] Insurance:SELF PAY [facility] Number: Effective Repository Date:2018-02-09 02/06/2018 GAY [facility] [place] [id number] Insurance:MEDICAL DaiberDOB: [address] Number: Repository [id number]: [phone] [id number] [phone] () Date:6768-15-79CS [address] [address]JB: 02/06/2018 Secondary NOT GIVENUNK [place] Insurance:SELF PAY [facility] Number: Effective Repository Date:2018-02-01 01/26/2018 GAY [facility] [place] [id number] Insurance:MEDICAL DaiberDOB: [address] Number: Repository [address]Tci: 330 [id number] [phone] () Date:1663-61-35ND [address] [address]IX: 01/26/2018 Secondary NOT GIVENUNK [place] Insurance:SELF PAY [facility] Number: Effective Repository Date:2018-01-20 01/26/2018 GAY Castro [facility] [place] [id number] Insurance:MEDICAL DaiberDOB: [address] Number: Repository [address]Zyq: 330 [id number] [phone] () Date:2641-82-18WL [address] [address]UC: 01/26/2018 Secondary NOT GIVENUNK [place] Insurance:SELF PAY [facility] Number: Effective Repository Date:2018-01-26 01/19/2018 GAY [facility] [place] [id number] Insurance:MEDICAL DaiberDOB: [address] Number: Repository [address]Wfp: (047) [id number] [phone] (HP) Date:5618-97-71AK [address] [address]XZ: 01/19/2018 Secondary NOT GIVENUNK [place] Insurance:SELF PAY [facility] Number: Effective Repository Date:2018-01-01 01/19/2018 GAY K [facility] [place] [id number] Insurance:MEDICAL DaiberDOB: Community [address] Number: Repository [address]Rui: 330 [id number] [phone] (HP) Date:9474-24-01RW[address] [address]JM: 01/19/2018 Secondary NOT GIVENUNK [place] Insurance:SELF PAY [facility] Number: Effective Repository Date:2018-01-19 01/16/2018 GAY Matthew [facility] [place] [id number] Insurance:MEDICAL DaiberDOB: [address] Number: Repository [id number]: 330 [id number] [phone] () Date:4347-22-73RM[address] [address]AL: 01/16/2018 Secondary NOT GIVENUNK [place] Insurance:SELF PAY [facility] Number: Effective Repository Date:2017-12-30 01/05/2018 GAY K [facility] [place] [id number] Insurance:MEDICAL DaiberDOB: [address] Number: Repository [address]Pwd: 330 [id number] [phone] (HP) Date:8423-68-93JP[address] [address]WP: 01/05/2018 Secondary NOT GIVENUNK [place] Insurance:SELF PAY [facility] Number: Effective Repository Date:2018-01-05 12/26/2017 GAY K [facility] [place] [id number] Insurance:MEDICAL DaiberDOB: [facility] 6356[place]79-46[place] Number[place] Repository [address]Wdj: 330 [id number] [phone] (HP) Date:0329-10-60ML [address] [address]AY: 12/26/2017 Secondary NOT GIVENUNK [place] Insurance:SELF PAY [facility] Number: Effective Repository Date:2017-12-22 12/08/2017 GAY Castro [facility] [place] [id number] Insurance:MEDICAL DaiberDOB: [address] Number: Repository [address]Btj: 330 [id number] [phone] (HP) Date:1111-17-68LA [address] [address]TS: 12/08/2017 Secondary NOT GIVENUNK [place] Insurance:SELF PAY [facility] Number: Effective Repository Date:2017-12-08 12/08/2017 GAY Castro [facility] [place] [id number] Insurance:MEDICAL DaiberDOB: [address] Number: Repository [address]Tty: 330 [id number] [phone] (HP) Date:1264-27-88OH [address] [address]NP: 12/08/2017 Secondary NOT GIVENUNK [place] Insurance:SELF PAY [facility] Number: Effective Repository Date:2017-12-08 12/08/2017 GAY [facility] [place] [id number] Insurance:MEDICAL DaiberDOB: [address] Number: Repository [address]Goa: 330 [id number] [phone] (HP) Date:0825-48-22MC [address] [address]OK: 12/08/2017 Secondary NOT GIVENUNK [place] Insurance:SELF PAY [facility] Number: Effective Repository Date:2017-12-08 11/28/2017 GAY [facility] [place] [id number] Insurance:MEDICAL DaiberDOB: [address] Number: Repository [address]Zvz: 330 [id number] [phone] () Date:4151-63-16SB [address] [address]CD: 11/28/2017 Secondary NOT GIVENUNK [place] Insurance:SELF PAY [facility] Number: Effective Repository Date:2017-11-28 11/27/2017 GAY [facility] [place] [id number] Insurance:MEDICAL DaiberDOB: [address] Number: Repository [address]Opi: 330 [id number] [phone] () Date:7567-27-33GJ[address] [address]WE: 11/27/2017 Secondary NOT GIVENUNK [place] Insurance:SELF PAY [facility] Number: Effective Repository Date:2017-11-21 11/27/2017 GAY Castro [facility] [place] [id number] Insurance:MEDICAL DaiberDOB: [address] Number: Repository [address]Mjr: 330 [id number] [phone] () Date:5513-92-99GQ[address] [address]TN: 11/27/2017 Secondary NOT GIVENUNK [place] Insurance:SELF PAY [facility] Number: Effective Repository Date:2017-11-27 11/26/2017 GAY Castro [facility] [place] [id number] Insurance:MEDICAL DaiberDOB: [address] Number: Repository [address]Uui: 330 [id number] [phone] () Date:6918-54-40UB [address] [address]IA: 11/26/2017 Secondary NOT GIVENUNK [place] Insurance:SELF PAY [facility] Number: Effective Repository Date:2017-11-26 11/19/2017 GAY K [facility] [place] [id number] Insurance:MEDICAL DaiberDOB: [address] Number: Repository [address]Woc: 330 [id number] [phone] () Date:8195-66-30PT [address] [address]OZ: 11/19/2017 Secondary NOT GIVENUNK [place] Insurance:SELF PAY [facility] Number: Effective Repository Date:2017-11-14 11/14/2017 GAY K [facility] [place] [id number] Insurance:MEDICAL DaiberDOB: [address] Number: Repository [address]Dep: 330 [id number] [phone] () Date:3239-67-54HJ[address] [address]NV: 11/14/2017 Secondary NOT GIVENUNK [place] Insurance:SELF PAY [facility] Number: Effective Repository Date:2017-11-07 11/12/2017 GAY K [facility] [place] [id number] Insurance:MEDICAL DaiberDOB: [address] Number: Repository [address]Wnj: 330 [id number] [phone] () Date:1735-04-54TE[address] [address]DW: 11/12/2017 Secondary NOT GIVENUNK [place] Insurance:SELF PAY [facility] Number: Effective Repository Date:2017-11-10 11/07/2017 GAY K [facility] [place] [id number] Insurance:MEDICAL DaiberDOB: [address] Number: Repository [address]Ehq: 330 [id number] [phone] (HP) Date:4276-92-59CR [address] [address]NZ: 11/07/2017 Secondary NOT GIVENUNK [place] Insurance:SELF PAY [facility] Number: Effective Repository Date:2017-10-30 10/30/2017 GAY Castro [facility] [place] [id number] Insurance:MEDICAL DaiberDOB: [address] Number: Repository [address]Mqy: 330 [id number] [phone] (HP) Date:7821-51-91RC [address] [address]IA: 10/30/2017 Secondary NOT GIVENUNK [place] Insurance:SELF PAY [facility] Number: Effective Repository Date:2017-10-22 10/29/2017 GAY Castro [facility] [place] [id number] Insurance:MEDICAL DaiberDOB: [address] Number: Repository [address]Vde: 330 [id number] [phone] () Date:2322-44-35BN [address] [address]ZY: 10/29/2017 Secondary NOT GIVENUNK [place] Insurance:SELF PAY [facility] Number: Effective Repository Date:2017-10-23 10/23/2017 GAY Castro [facility] [place] [id number] Insurance:MEDICAL DaiberDOB: [address] Number: Repository [address]Tbs: 330 [id number] [phone] (HP) Date:6194-99-77VT [address] [address]MA: 10/23/2017 Secondary NOT GIVENUNK [place] Insurance:SELF PAY [facility] Number: Effective Repository Date:2017-10-23 10/22/2017 AGY Castro [facility] [id number] Insurance:MEDICAL DaiberDOB: [address] Number: Repository [address]Esb: 330 [id number] [phone] () Date:7473-62-70WC [address] [address]HA: 10/22/2017 Secondary NOT GIVENUNK [place] Insurance:SELF PAY [facility] Number: Effective Repository Date:2017-10-20 10/10/2017 GAY Matthew [facility]usef [place] [id number] Insurance:MEDICAL DaiberDOB: [address] Number: Repository [address]Zcv: 330 [id number] [phone] () Date:6583-67-28NI [address] [address]ZU: 10/10/2017 Secondary NOT GIVENUNK [place] Insurance:SELF PAY [facility] Number: Effective Repository Date:2017-10-04
== END ==
PROVIDERS: Family Provider Student in an Organized Health Care Education/Training Program; PCP Student in an Organized Health Care Education/Training Program; Referring Provider Orthopaedic Surgery; Visit Provider Orthopaedic Surgery
DX: M54.5 Low back pain (principal)
CPT/HCPCS: 72110

== ENCOUNTER 2018-10-02 10:15 | Outpatient (RCR) | payer OTHER, SELFPAY ==
--- NOTE | 2018-09-23 14:47 | PR.ITP_ITS ---
Exercise - 60-Day Assessment - Current Level Mode:: Treadmill, Airdyne, NuStep, Arm Ergometer Frequency (x/week): 3 Duration:: 35 Aerobic Exercise [30-60 min 3-7x/week]:: Met Target heart rate: 116-125 Thomas-13 MET Level:: 2.5 - Home Exercise Home Exercise:: No Disease Management - 60-Day - Medications Medication list reviewed:: Yes Taking medications 100% of the time:: Met Medication reassessment: Yes Pt demonstrates correct technique timing for MDI, Yes Pt demonstrates correct technique timing for DPI, Yes Pt demonstrates correct technique timing for NEB, Yes Pt demonstrates correct technique timing for spacer - returned demonstration proper use of spacer and MDI - Bronchial Hygiene Bronchial Hygiene Plan: Yes Pt demonstrates correctly for effective cough - perf ormed gates cough technique, Yes Pt demo correct for device - return demonstration PEP therapy device, Yes Pt demo correct for improved hydration, Yes Pt demo correct for hand hygiene, Yes Pt demo correct for verbalize when to call MD Psychosocial - 60-Day - Assessment Depression reassess: Management of stress: Progressing, Management of depression: Progressing, Practicing interventions: Progressing Tobacco - 60-Day Assessment - Program Goals Tobacco Program Goals: Complete smoking cessation. Attend education classes. Improve Knowledge Test score - Stage of Change Stages of Change:: Action - Learning Barriers Learning Barriers: Participates in education - Family Support Do you have family support?: Yes - Tobacco Use Tobacco Use: Non-smoker Do you use smokeless tobacco?: No - Intervention Smoking Cessation Referral:: No Education Schedule Given:: Yes - Education Gave Education Materials For:: Pulmonary Disease, Risk Factors, Breathing Techniques, Medical Compliance, Pulmonary A&P, Exacerbation Signs & Symptoms, Stress & Relaxation Nutrition/Wt Mgmt - 60-Day - Weight Management Weight Assessment:: Wt loss 1-2 lbs per week, Wt stable Weight:: 243 lb 8 oz Weight Goals Progress:: Not progressing Patient Health Questionnaire 60-Day Re-eval Assessment 1. Little interest or pleasure in doing things: More than half the days 2. Feeling down, depressed, or hopeless: Nearly every day 3. Trouble falling or staying asleep, or sleeping too much: More than half the days 4. Feeling tired or having little energy: More than half the days 5. Poor appetite or overeating: Nearly every day 6. Feeling bad about yourself -- or that you are a failure or have let yourself or your family down: Several days 7. Trouble concentrating on things, such as reading the newspaper or watching television: More than half the days 8. Moving or speaking so slowly that other people could have noticed. Or the opposite - being so fidgety or restless that you have been moving around a lot more than usual: Not at all 9. Thoughts that you would be better off , or of hurting yourself in some way: Not at all - Kalin is being treated for chronic depression How difficult have these problems made it for you to do your work, take care of things at home, or get along with other people?: Somewhat difficult Total Score: 15 Self-Efficacy 60-Day Re-eval Assessment We would like to know how confident you are in doing certain activities. Please select your confidence level for:: Select your confidence level for the following using the scale 1-10 where 1 is not at all confident and 10 is totally confident. Your score is the average of all 6 responses. Fatigue: How confident are you that you can keep the fatigue caused by your disease from interfering with the things you want to do? Select Number: 8 Physical Discomfort or Pain: How confident are you that you can keep the physical discomfort or pain of your disease from interfering with the things you want to do? Select Number: 9 Emotional Distress: How confident are you that you can keep the emotional distress caused by your disease from interfering with the things you want to do? Select Number: 10 Other Symptoms or Health Problems: How confident are you that you can keep other symptoms or health problems from interfering with the things you want to do? Select Number: 9 Different Tasks and Activities: How confident are you that you can do the different tasks and activities needed to manage your health condition so as to reduce your need to see a doctor? Select Number: 8 Medication: How confident are you that you can do things other than just taking medication to reduce how much your illness affects your everyday life? Select Number: 10 Total Score:: 9
== END 2018-10-02 23:59 ==
LOC: PR 10:15
PROVIDERS: Family Provider Student in an Organized Health Care Education/Training Program; PCP Student in an Organized Health Care Education/Training Program; Referring Provider Student in an Organized Health Care Education/Training Program; Visit Provider Student in an Organized Health Care Education/Training Program
DX: J45.990 Exercise induced bronchospasm (principal)
CPT/HCPCS: 97150; G0239

== ENCOUNTER 2018-10-30 10:15 | Outpatient (RCR) | payer OTHER, SELFPAY ==
[2018-09-29 13:55] VITALS: BMI 38.2
--- NOTE | 2018-10-22 09:26 | PCM.PR.TP ---
Exercise - 90-Day Assessment - Exercise Prescription Mode:: Treadmill, NuStep, Arm Ergometer Frequency (x/week): 3 Duration:: 30-45 Aerobic Exercise [30-60 min 3-7x/week]:: Not progressing Target heart rate: 116-125 with max hr 136 Thomas-13 MET Level:: 2.5 - Home Exercise Home Exercise?: No Disease Management - 90-Day - Hypoxemia Reassessment: Demonstrates knowledge of O2 Rx with exercise - Medications Medication list reviewed:: Yes Taking medications 100% of the time:: Met Medication reassessment: Yes Pt demonstrates correct technique timing for MDI, Yes Pt demonstrates correct technique timing for DPI, Yes Pt demonstrates correct technique timing for NEB, Yes Pt demonstrates correct technique timing for spacer - Bronchial Hygiene Bronchial Hygiene Plan: Yes Pt demonstrates correctly for effective cough, Yes Pt demo correct for device, Yes Pt demo correct for improved hydration, Yes Pt demo correct for hand hygiene, Yes Pt demo correct for verbalize when to call MD Psychosocial - 90-Day - Assessment Depression reassess: Management of stress: Progressing, Management of depression: Progressing, Practicing interventions: Met Tobacco - 90-Day Assessment - Program Goals Tobacco Program Goals: Complete smoking cessation. Attend education classes. Improve Knowledge Test score - Stage of Change Stages of Change:: Action - Learning Barriers Learning Barriers: Participates in education - Family Support Do you have family support?: Yes - Tobacco Use Tobacco Use: Non-smoker Do you use smokeless tobacco?: No - Intervention Smoking Cessation Referral:: No Education Schedule Given:: Yes - Education Gave Education Materials For:: Pulmonary Disease, Risk Factors, Breathing Techniques, Medical Compliance, Pulmonary A&P, Exacerbation Signs & Symptoms, Stress & Relaxation Nutrition/Wt Mgmt - 90-Day - Weight Management Weight Assessment:: Wt stable Weight:: 239 lb 8 oz - down from 243.5 Weight Goals Progress:: Progressing Patient Health Questionnaire 90-Day Re-eval Assessment 1. Little interest or pleasure in doing things: Not at all 2. Feeling down, depressed, or hopeless: Several days 3. Trouble falling or staying asleep, or sleeping too much: Several days 4. Feeling tired or having little energy: Several days 5. Poor appetite or overeating: Not at all 6. Feeling bad about yourself -- or that you are a failure or have let yourself or your family down: Not at all 7. Trouble concentrating on things, such as reading the newspaper or watching television: Several days 8. Moving or speaking so slowly that other people could have noticed. Or the opposite - being so fidgety or restless that you have been moving around a lot more than usual: Not at all 9. Thoughts that you would be better off , or of hurting yourself in some way: Not at all How difficult have these problems made it for you to do your work, take care of things at home, or get along with other people?: Somewhat difficult Total Score: 4 Self-Efficacy 90-Day Re-eval Assessment We would like to know how confident you are in doing certain activities. Please select your confidence level for:: Select your confidence level for the following using the scale 1-10 where 1 is not at all confident and 10 is totally confident. Your score is the average of all 6 responses. Fatigue: How confident are you that you can keep the fatigue caused by your disease from interfering with the things you want to do? Select Number: 9 Physical Discomfort or Pain: How confident are you that you can keep the physical discomfort or pain of your disease from interfering with the things you want to do? Select Number: 9 Emotional Distress: How confident are you that you can keep the emotional distress caused by your disease from interfering with the things you want to do? Select Number: 10 Other Symptoms or Health Problems: How confident are you that you can keep other symptoms or health problems from interfering with the things you want to do? Select Number: 10 Different Tasks and Activities: How confident are you that you can do the different tasks and activities needed to manage your health condition so as to reduce your need to see a doctor? Select Number: 10 Medication: How confident are you that you can do things other than just taking medication to reduce how much your illness affects your everyday life? Select Number: 10 Total Score:: 9
== END 2018-11-02 23:59 ==
LOC: PR 10:15
PROVIDERS: Family Provider Student in an Organized Health Care Education/Training Program; PCP Student in an Organized Health Care Education/Training Program; Referring Provider Student in an Organized Health Care Education/Training Program; Visit Provider Student in an Organized Health Care Education/Training Program
DX: J45.990 Exercise induced bronchospasm (principal)
CPT/HCPCS: 97150; G0239

== ENCOUNTER 2018-11-13 10:16 | Outpatient (RCR) | payer OTHER, SELFPAY ==
[2018-11-05 13:51] VITALS: BMI 38.2
== END 2018-11-13 23:59 | disposition home or self-care (01) ==
LOC: NS 10:16
PROVIDERS: Family Provider Student in an Organized Health Care Education/Training Program; PCP Student in an Organized Health Care Education/Training Program; Referring Provider Student in an Organized Health Care Education/Training Program; Visit Provider Student in an Organized Health Care Education/Training Program
DX: E66.01 Morbid (severe) obesity due to excess calories (principal); Z68.41 Body mass index [BMI] 40.0-44.9, adult; Z71.3 Dietary counseling and surveillance
CPT/HCPCS: 97803

== ENCOUNTER 2018-12-11 13:37 | Emergency (ER) | payer OTHER, SELFPAY ==
[2018-12-03 14:26] VITALS: BMI 38.2
[2018-12-11 13:37] VITALS: BP 162/92; PULSE 55; RESP 22; TEMP 36.3; O2SAT 96; BMI 38.3
--- NOTE | 2018-12-11 13:50 | RAD_ITS ---
STUDY: X-RAY CHEST REASON FOR EXAM: Female, 53 years old. Few week history of cough. TECHNIQUE: PA and lateral views of the chest. COMPARISON: None. FINDINGS: Mild degree of increased linear markings at the lung bases slightly more prominence at the left lung base suggestive of a bibasilar atelectasis and possible scarring. There is no demonstrated pleural abnormality. Normal size heart. Normal mediastinum and alexandra. Normal visualized pulmonary arteries. Normal visualized aortic arch and descending thoracic aorta. There are diffuse degenerative changes of the visualized thoracic spine. Normal visualized ribs, clavicles, and shoulders. There is no demonstrated abnormality of the visualized soft tissue structures of the upper abdomen. RAD/Chest PA and Lateral IMPRESSION: Increased markings at the lung bases with areas of confluence suggestive of bibasilar atelectasis and possible superimposed on mild degree of scarring. Electronically Signed: Anshul Sams MD at 14:53 EST , Service support ,
[2018-12-11 14:02] VITALS: PULSE 73; RESP 17; TEMP 36.3
[2018-12-11] MEDS: Ipratropium/Albuterol Sulfate 3 ML AMPUL.NEB INHALATION (14:06)
[2018-12-11 14:14] VITALS: PULSE 76; RESP 18; O2SAT 93
--- NOTE | 2018-12-11 14:21 | ED.DCSUM_ITS ---
- ER Visit Summary Date of Service: 12/11/18 Chief Complaint: Shortness of breath History of Present Illness: The patient is a 53 F who is had shortness of breath and cough for the past 6 days. She went to an urgent care 6 days ago and was diagnosed with sinusitis and bronchitis. She finished prednisone today. She is also taking doxycycline and Tessalon Perles. She denies fevers or chest pain. Her cough is nonproductive. She is also on Symbicort, albuterol inhalers as well as nebulizers. She has a history of asthma with air trapping. Physical Examination: Vital signs reviewed. HEENT exam unremarkable. Heart is regular rate and rhythm without murmurs. Lungs have slight wheezing in the expiratory phase. Abdomen is soft and nontender. Extremities reveal no edema. Skin exam normal. Neurologic exam normal. Test Results: Chest x-ray reveals chronic changes of scarring superimposed on some atelectasis Emergency Department Course and Treatment: Patient was given DuoNeb. Her vital signs are unremarkable. I do not feel she requires admission. I will switch her antibiotics to a azithromycin. I will give her Medrol Dosepak and Mucinex D. She will call her PCP for follow-up Treatment Plan: [] Disposition: Discharge Impression: Bronchitis This note was generated with MeriTale[employer] dictation software. It may contain incorrect words, spelling, and punctuation that were not noted in review of the chart prior to signing ED Disposition - Plan for ED Patient: Referrals: Everton Acevedo DO [Primary Care Provider] -
[2018-12-11 15:01] VITALS: TEMP 37
--- NOTE | 2018-12-11 15:17 | DCINST.ED_ITS ---
ED Disposition - Plan for ED Patient: Disposition: Home or Assisted Living Instructions: ED Bronchitis Asthmatic Prescriptions: Azithromycin [Zithromax Z-Major] 250 mg PO UD #1 box MethylPREDNISolone DosePak [Medrol DosePak] 4 mg PO UD #1 box Guaifenesin/Pseudoephedrne HCl [Guaifenesin-Pse ER 600-60 mg] 1 each PO BID #14 tab.er.12h Referrals: Everton Acevedo DO [Primary Care Provider] - Additional Instructions: [facility]
[2018-12-11 15:37] VITALS: BP 160/82; PULSE 54; RESP 19; O2SAT 97
== END 2018-12-11 15:38 | disposition home or self-care (01) ==
PROVIDERS: Emergency Provider Emergency Medicine; Family Provider Student in an Organized Health Care Education/Training Program; PCP Student in an Organized Health Care Education/Training Program
DX: J40 Bronchitis, not specified as acute or chronic (principal)
CPT/HCPCS: 71046; 94640; 99283

== ENCOUNTER → 2018-12-14 11:01 | Outpatient (CLI) | payer OTHER, SELFPAY ==
[2018-12-03 14:26] VITALS: BMI 38.2
[2018-12-11 13:37] VITALS: BMI 38.3
--- NOTE | 2018-12-14 12:30 | BRBX_PTH ---
PATIENT: GAY SHAFER LOC: [facility] U#:[id number] AGE/SX: 59/F ROOM: RE12/14/[address]: Dr. Nikko Poole MD : 1965 BED: DIS: SPEC #: [id number] RECD: 12/14/18 13:13 STATUS: CURTIS REHarjit #: [id number] ISRA[place]: 12/14/18 12:[address]: Nikko Poole DEPT: SURGICAL PATHOLOGY RECD BY: Zechariah Cotton ENTERED: 12/14/18 14:20 SP TYPE: BREAST BX OTHR DR: Dr. Everton Acevedo DO Tissues: Left breast, NOS Procedures: Surgery Specimen Level IV HEADER OPERATION: Left breast stereotactic needle core biopsy PRE-OP DIAGNOSIS: Left upper mid breast density TISSUE SUBMITTED: Left breast ISCHEMIC TIME: 2 minutes FIXATION TIME: 7 hours MICROSCOPIC DIAGNOSIS Left upper mid breast density, stereotactic core biopsy: Focal fibrocystic change. No evidence of malignancy. AM:cait 12/15/18 MICROSCOPIC DESCRIPTION Slides are reviewed. GROSS DESCRIPTION Received is one container labeled with the patient's name and not further designated. The specimen consists of multiple elongated fragments of edwards-yellow fibroadipose tissue that in aggregate measure 6 x 3 x 0.3 cm. The entire specimen is submitted in three cassettes. / SJ:cait 12/14/18 TC:5 CPT: 17394
--- NOTE | 2018-12-14 17:57 | PCM.OPRPT ---
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 The left breast was positioned in the CC approach on the [place] stereotactic table. Mammographic image demonstrated the area of abnormality to be located in the center of the radiograph. Stereotactic images were then obtained which demonstrated good positioning of the abnormality for biopsy with good stroke justo parameters. The breast was cleaned with Betadine area did one percent lidocaine was used to anesthetize the skin and a small stab incision made. An 8-gauge mammotome needle was placed into the pre-fire position. Stereotactic images demonstrated good positioning around the planned biopsy site. Local anesthetic injected deeply in the breast. The needle was deployed. Post deployment images demonstrated good positioning of the planned biopsy site. Multiple vacuum-assisted samples were obtained and okqeji-phw-rdajq fashion. A gel marker clip was deployed. Post biopsy images demonstrated good position of the clip relative the biopsy cavity. The breast was removed from compression. Steri-Strips and a dressing applied. Post procedure mammogram images were obtained.
--- NOTE | 2018-12-14 18:00 | OP.PCM_ITS ---
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 The left breast was positioned in the CC approach on the [place] stereotactic table. Mammographic image demonstrated the area of abnormality to be located in the center of the radiograph. Stereotactic images were then obtained which demonstrated good positioning of the abnormality for biopsy with good stroke justo parameters. The breast was cleaned with Betadine area did one percent lidocaine was used to anesthetize the skin and a small stab incision made. An 8-gauge mammotome needle was placed into the pre-fire posi tion. Stereotactic images demonstrated good positioning around the planned biopsy site. Local anesthetic injected deeply in the breast. The needle was deployed. Post deployment images demonstrated good positioning of the planned biopsy site. Multiple vacuum-assisted samples were obtained and wghjbg-gta-deoea fashion. A gel marker clip was deployed. Post biopsy images demonstrated good position of the clip relative the biopsy cavity. The breast was removed from compression. Steri-Strips and a dressing applied. Post procedure mammogram images were obtained.
== END ==
PROVIDERS: Family Provider Student in an Organized Health Care Education/Training Program; PCP Student in an Organized Health Care Education/Training Program; Referring Provider Surgery; Visit Provider Surgery
DX: N60.12 Diffuse cystic mastopathy of left breast (principal); J45.909 Unspecified asthma, uncomplicated; F32.9 Major depressive disorder, single episode, unspecified; G47.33 Obstructive sleep apnea (adult) (pediatric); Z79.51 Long term (current) use of inhaled steroids; Z79.899 Other long term (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 therapy
CPT/HCPCS: 19081; 88305; J7050

== ENCOUNTER 2018-12-23 05:52 | Day surgery (SDC) | payer OTHER, SELFPAY ==
[2018-11-30 14:20] VITALS: BMI 38.2
[2018-12-23 06:15] VITALS: BP 120/98; PULSE 55; RESP 20; TEMP 36.3; O2SAT 96; BMI 38.3
--- NOTE | 2018-12-23 07:00 | COLBX_PTH ---
PATIENT: GAY SHAFER LOC: [place] U#:[id number] AGE/SX: 53/F ROOM: RE12/23/[address]: Dr. Rick Whiting MD : 1965 BED: DIS: 12/23/2018 SPEC #: [id number] RECD: 12/23/18 08:29 STATUS: CURTIS EDI #: [id number] [place]RA[place]: 12/23/18 07:[address]: Rick Whiting DEPT: SURGICAL PATHOLOGY RECD BY: Zechariah Cotton ENTERED: 12/23/18 09:58 SP TYPE: COLON BX OTHR DR: Dr. Everton Acevedo, DO Tissues: Gastric mucous membrane Procedures: Surgery Specimen Level IV HEADER OPERATION: Colonoscopy (MAC) PRE-OP DIAGNOSIS: GERD TISSUE SUBMITTED: Antral biopsy for histo and H. pylori MICROSCOPIC DIAGNOSIS Gastric antrum, biopsy: Minimal chronic inflammation. AM:cait 12/24/18 COMMENT The results of immunohistochemistry for Helicobacter pylori will be reported separately ([id number]). MICROSCOPIC DESCRIPTION Slides are reviewed. GROSS DESCRIPTION Received in fixative is one container labeled with the patient's name and designated biopsy gastric antrum. The specimen consists of one irregular fragment of light edwards soft tissue that measures 0.6 x 0.2 x 0.1 cm. The specimen is totally submitted in one cassette. / SJ:cait 12/23/18 TC:3 CPT: 97043
--- NOTE | 2018-12-23 07:00 | IMM_PTH ---
PATIENT: GAY SHAFER LOC: EN U#:[id number] AGE/SX: 53/F ROOM: RE12/23/[address]: Dr. Rick Whiting MD : 1965 BED: DIS: 12/23/2018 SPEC #: [id number] RECD: 12/24/18 08:38 STATUS: CURTIS REHarjit #: [id number] ISRAEL: 12/23/18 07:[address]: Rick Whiting DEPT: IMMUNOHISTOCHEMISTRY RECD BY: Kenia Pacheco ENTERED: 12/24/18 08:39 SP TYPE: IMMUNO OTHR DR: Dr. Everton Acevedo DO Tissues: Stomach, NOS Procedures: H Pylori (initial) PHYSICIAN & INSTITUTION [place] [address] SPECIMEN INFORMATION: Tissue Source: Antral biopsy Clinical Info: GERD Specimen Number: [id number] CPT code: 58222 METHODOLOGY: Deparaffinized sections of prefer/formalin-fixed tissue or PAP/DQ stained slides are incubated with monoclonal/polyclonal antibodies/oligonucleotide probes. Localization is made via biotin free immunoperoxidase method. Appropriate controls are performed and reacted as expected. Results on target cell population are indicated in the following table: RESULTS: ANTIBODY / CLONE RESULT H Pylori (polyclonal) negative These tests were developed and their performance characteristics determined by [facility]. They may not have been cleared or approved by the U.S. Food and Drug Administration. The FDA has determined that such clearance or approval is not necessary. INTERPRETATION: Antral biopsy: Negative for Helicobacter pylori organisms. AM:cait 12/24/18
[2018-12-23 07:05] VITALS: BP 120/98; BP 124/85; PULSE 62; RESP 16; TEMP 36.6; O2SAT 99
[2018-12-23 07:10] VITALS: BP 120/98; BP 130/76; PULSE 60; RESP 16; O2SAT 96
--- NOTE | 2018-12-23 07:11 | OP.ENDO_ITS ---
Patient Name: Lizet Coleman Procedure Date: 12/23/2018 6:20 AM Date of : 1965 Age: 53 Procedure: Upper GI endoscopy Indications: Gastro-esophageal reflux disease Providers: Rick Whiting MD Medicines: See the Anesthesia note for documentation of the administered medications Patient Profile: This is a 53 year old female. Refer to note in patient chart for documentation of history and physical. Complications: No immediate complications. Procedure: Pre-Anesthesia Assessment: - Prior to the procedure, a History and Physical was performed, and patient medications and allergies were reviewed. The patient's tolerance of previous anesthesia was also reviewed. The risks and benefits of the procedure and the sedation options and risks were discussed with the patient. All questions were answered, and informed consent was obtained. Prior Anticoagulants: The patient has taken no previous anticoagulant or antiplatelet agents. ASA Grade Assessment: III - A patient with severe systemic disease. After reviewing the risks and benefits, the patient was deemed in satisfactory condition to undergo the procedure. After obtaining informed consent, the endoscope was passed under direct vision. Throughout the procedure, the patient's blood pressure, pulse, and oxygen saturations were monitored continuously. The gastroscope was introduced through the mouth, and advanced to the second part of duodenum. The upper GI endoscopy was accomplished without difficulty. The patient tolerated the procedure well. Scope In: 6:58:37 AM Scope Out: 7:02:29 AM Total Procedure Duration Time 0 hours 3 minutes 52 seconds Findings: The Z-line was regular and was found 38 cm from the incisors. The examined esophagus was normal. There were no signs of esophagitis or significant reflux in the esophagus. A small amount of food (residue) was found in the gastric antrum. Biopsies were taken with a cold forceps for Helicobacter pylori testing. The examined duodenum was normal. Right vocal cord paralysis. The vocal cords are otherwise normal. Impression: - Z-line regular, 38 cm from the incisors. - Normal esophagus. - A small amount of food (residue) in the stomach. Biopsied. - Normal examined duodenum. - Vocal cord paralysis was found. Right side did not move as well as left. Not sure if it was a complete paralysis. I do not think I can blame her vocal cord abnormalities on reflux at this time. Recommendation: - Await pathology results. - Repeat upper endoscopy (date not yet determined) for surveillance. - Return to my office in 1 week. - Continue present medications. Procedure Code(s): --- Professional --- 09574, Esophagogastroduodenoscopy, flexible, transoral; with biopsy, single or multiple Diagnosis Code(s): --- Professional --- J38.00, Paralysis of vocal cords and larynx, unspecified K21.9, Gastro-esophageal reflux disease without esophagitis CPT copyright 2017 [employer]. All rights reserved. The codes documented in this report are preliminary and upon mental health nurse practitioner review may be revised to meet current compliance requirements. MD Rick Arenas MD 12/23/2018 7:11:25 AM This report has been signed electronically. Number of Addenda: 0 Note Initiated On: 12/23/2018 6:20 AM
[2018-12-23 07:15] VITALS: BP 120/98; BP 132/73; PULSE 60; RESP 16; O2SAT 97
[2018-12-23 07:20] VITALS: BP 120/98; BP 133/75; PULSE 64; RESP 16; TEMP 36.1; O2SAT 97
[2018-12-23 07:33] VITALS: BP 120/98
== END 2018-12-23 07:50 | disposition home or self-care (01) ==
LOC: EN 05:52 → AC 05:55
PROVIDERS: Family Provider Student in an Organized Health Care Education/Training Program; PCP Student in an Organized Health Care Education/Training Program; Referring Provider Surgery; Visit Provider Surgery
PROC: 0DJ08ZZ Inspection of Upper Intestinal Tract, Via Natural or Artificial Opening Endoscopic (ICD-10-PCS; CPT 43235; principal; 2018-12-23 06:55)
DX: K21.9 Gastro-esophageal reflux disease without esophagitis (principal); J38.01 Paralysis of vocal cords and larynx, unilateral; J45.909 Unspecified asthma, uncomplicated
CPT/HCPCS: 43239; 88305; 88342; J7120

== ENCOUNTER → 2018-12-29 12:59 | Outpatient (CLI) | payer OTHER, SELFPAY ==
[2018-12-29 12:48] VITALS: BMI 38.3
--- NOTE | 2018-12-29 13:02 | RAD_ITS ---
STUDY: X-RAY - CERVICAL SPINE REASON FOR EXAM: Female, 53 years old. Arthritis. TECHNIQUE: 4 view(s) of the cervical spine were obtained. COMPARISON: None FINDINGS: Normal anterior atlantoaxial articulation. Normal odontoid process. Normal cervical lordosis. Normal vertebral bodies. Disc space narrowing C3-C4 through C6-C7. Small marginal osteophytes C5-C6 and C6-C7. No significant motion in flexion or extension. Normal visualized intervertebral neuroforamina. The soft tissue structures are unremarkable. RAD/Cerv Spine 4 or 5 Views IMPRESSION: Multilevel degenerative changes of the mid and lower cervical spine. No fracture identified Electronically Signed: Edwar Espinal MD at 3:11 EST , Service support ,
--- NOTE | 2018-12-29 13:02 | RAD_ITS ---
STUDY: X-RAY - THORACIC SPINE REASON FOR EXAM: Female, 53 years old. Arthritis. TECHNIQUE: 2 view(s) of the thoracic spine were obtained. COMPARISON: None. FINDINGS: Normal kyphosis of the thoracic spine. Mild convex right midthoracic curvature. Normal thoracic vertebrae. Small marginal osteophytes at multiple levels. Normal disc space heights. The soft tissue structures are unremarkable. RAD/Thoracic Spine 3 Views IMPRESSION: Mild multilevel degenerative changes of the thoracic spine. Mild convex right thoracic curvature. Electronically Signed: Edwar Espinal MD at 3:12 EST , Service support ,
== END ==
PROVIDERS: Family Provider Student in an Organized Health Care Education/Training Program; PCP Student in an Organized Health Care Education/Training Program; Referring Provider Orthopaedic Surgery; Visit Provider Orthopaedic Surgery
DX: M54.2 Cervicalgia (principal); M54.9 Dorsalgia, unspecified
CPT/HCPCS: 72050; 72072

== ENCOUNTER → 2019-01-04 14:46 | Outpatient (CLI) | payer OTHER, SELFPAY ==
[2018-12-29 12:48] VITALS: BMI 38.3
[2019-01-04 17:39] LABS: Absolute Lymphocyte Count 1.41 X10^3/ul (0.83-4.51); Absolute Neutrophil Count 1.7 X10^3/uL (2.0-7.7); Basophil# 0.04 X10^3/uL; Basophil% 1.1 % (0-1); Eosinophil# 0.04 X10^3/uL; Eosinophils% 1.1 % (0-5); Hematocrit 40.3 % (37-47); Hemoglobin 12.6 g/dl (12.0-15.0); Lymphocyte # 1.41 X10^3/ul (4.0); Lymphocyte % 39.4 % (19-41); Mean Corp Hgb Conc 31.3 g/gl (32-36); Mean Corpuscular Hgb 30.1 pg (27.0-32.0); Mean Corpuscular Volume 96.2 fL (81-99); Mean Platelet Vol. 10.1 fl (6.2-12.0); Monocyte# 0.36 X10^3/uL; Monocyte% 10.1 % (0-10); Neutrophil # 1.72 X10^3/uL (2.7-7.7); Platelet Count 262 K/mm3 (150-450); Red Blood Count 4.19 M/mm3 (4.2-5.4); White Blood Count 3.6 K/mm3 (4.4-11.0)
[2019-01-04 17:41] LABS: POSITIVE COUNT NO; POSITIVE DIFFERENTIAL NO; POSITIVE MORPHOLOGY NO
[2019-01-04 18:01] LABS: ALB/GLOB Ratio 1.1 RATIO (0.9-2.4); AST(SGOT) 20 U/L (15-37); Alanine Aminotransfer ALT/SGPT 40 U/L (13-56); Albumin, Serum 3.6 g/dL (3.2-5.0); Alkaline Phosphatase 85 U/L (45-117); Anion Gap 10 (5-15); BUN 19 mg/dL (7-18); BUN/Creat Ratio 23.2 RATIO (10-20); Calcium,Total 8.1 mg/dL (8.5-10.1); Chloride 111 mmol/L (98-107); Creatinine, Serum 0.82 mg/dL (0.55-1.02); EST Glomerular Filtration Rate 77 mL/min (>60); Est Glom Filt Rate - Afr Amer 93 mL/min (>60); Globulin 3.3 g/dL (2.2-4.2); Glucose 86 mg/dL (74-106); Potassium 3.7 mmol/L (3.5-5.1); Protein, Total 6.9 g/dL (6.4-8.2); Rheumatoid Factor < 10.0 IU/mL (<15); Sodium Level 143 mmol/L (136-145)
[2019-01-04 18:05] LABS: Erythrocyte Sedimentation Rate 12 mm/hr (0-30)
[2019-01-06 20:08] LABS: ANTINUCLEAR ANTIBODIES DIRECT Negative (Negative)
[2019-01-12 11:28] LABS: CCP IgG Antibodies 3 units (0-19); HEPATITIS B SURFACE AG Negative (Negative); HLA B27 Negative (.); Hep B Surface Antibodies Reactive (.); Hep C Antibodies 1.5 s/co ratio (0.0-0.9)
== END ==
PROVIDERS: Family Provider Student in an Organized Health Care Education/Training Program; PCP Student in an Organized Health Care Education/Training Program; Referring Provider Internal Medicine Rheumatology; Visit Provider Internal Medicine Rheumatology
DX: L40.59 Other psoriatic arthropathy (principal); M79.7 Fibromyalgia; L40.8 Other psoriasis; K21.9 Gastro-esophageal reflux disease without esophagitis; M48.061 Spinal stenosis, lumbar region without neurogenic claudication; M48.02 Spinal stenosis, cervical region; K58.0 Irritable bowel syndrome with diarrhea; N32.81 Overactive bladder; F41.9 Anxiety disorder, unspecified; F32.89 Other specified depressive episodes; J45.909 Unspecified asthma, uncomplicated
CPT/HCPCS: 36415; 80053; 81374; 85025; 85652; 86038; 86140; 86200; 86431; 86706; 86803; 87340

== ENCOUNTER → 2019-01-27 11:56 | Outpatient (CLI) | payer OTHER, SELFPAY ==
[2018-12-29 12:48] VITALS: BMI 38.3
[2019-01-29 03:07] LABS: HCV Quant. RNA PCR HCV Not Detected IU/mL (.)
== END ==
PROVIDERS: Family Provider Student in an Organized Health Care Education/Training Program; PCP Student in an Organized Health Care Education/Training Program; Referring Provider Internal Medicine Rheumatology; Visit Provider Internal Medicine Rheumatology
DX: L40.59 Other psoriatic arthropathy (principal); M79.7 Fibromyalgia; L40.8 Other psoriasis; K21.9 Gastro-esophageal reflux disease without esophagitis; M48.061 Spinal stenosis, lumbar region without neurogenic claudication; M48.02 Spinal stenosis, cervical region; K58.0 Irritable bowel syndrome with diarrhea; N32.81 Overactive bladder; F41.9 Anxiety disorder, unspecified; F32.89 Other specified depressive episodes; J45.909 Unspecified asthma, uncomplicated
CPT/HCPCS: 36415; 87522

== ENCOUNTER 2019-01-28 08:53 | Day surgery (SDC) | payer OTHER, SELFPAY ==
[2018-12-29 12:48] VITALS: BMI 38.3
[2019-01-28 10:31] VITALS: BP 136/82; PULSE 70; RESP 16; TEMP 37.1; O2SAT 97
== END 2019-01-28 10:32 | disposition home or self-care (01) ==
PROVIDERS: Surgery; Family Provider Student in an Organized Health Care Education/Training Program; PCP Student in an Organized Health Care Education/Training Program; Referring Provider Student in an Organized Health Care Education/Training Program; Visit Provider Surgery
PROC: F00ZJWZ Instrumental Swallowing and Oral Function Assessment using Swallowing Equipment (ICD-10-PCS; CPT 43235; principal; 2019-01-28 08:55)
DX: K21.9 Gastro-esophageal reflux disease without esophagitis (principal)
CPT/HCPCS: 91010

== ENCOUNTER 2019-02-09 05:56 | Day surgery (SDC) | payer OTHER, SELFPAY ==
[2018-12-29 12:48] VITALS: BMI 38.3
[2019-02-09 06:25] VITALS: BP 128/104; PULSE 81; RESP 16; TEMP 37.2; O2SAT 96; BMI 37.4
--- NOTE | 2019-02-09 07:05 | HP.PCM_ITS ---
Problem List (1) GERD (gastroesophageal reflux disease) Status: Acute Qualifiers: Esophagitis presence: esophagitis presence not specified Qualified Code(s): K21.9 - Gastro-esophageal reflux disease without esophagitis History of Present Illness Date of Admission: 02/09/19 GAY SHAFER, is a 53 F who presents to the office today for evaluation of gastroesophageal reflux disease. Patient has experienced reflux disease her entire life. She notices that she has hoarseness and tightness in her throat at times. In addition she has heaviness and pressure in her chest area. Patient has recently undergone pulmonary rehab 1 month ago and they think that her pulmonary symptoms are more asthma than COPD. Patient also experiences significant sleep apnea and air trapping. Patient underwent an upper endoscopy in December of this last year. Z line was right around 3840 cm. She had a small amount of retained food in her stomach. Patient notices that she clears her throat significantly all day long from sinus drainage. She usually has dinner around 530 and takes her medications before bedtime. She does not have her bed on cinder blocks but she does sleep with pillows and a neck roll. Patient also went and had a esophageal manometry study. This showed the 10 swallows were analyzed. There were 2 premature swallows out of the 10 and when there was a retained bolus and 4 of the 10 swallows it appeared to be retained in the proximal esophagus with good bolus clearance in the distal esophagus. This suggested a weakness in the striated muscles of the proximal esophagus with good motility of the smooth muscle of the distal esophagus. LES relaxation and tone were normal. She presents today for 48-hour pH probe. 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) Non-pressure chronic ulcer of skin of other sites with fat layer exposed (Chronic) nonhealing ulcer upper back Family history of skin cancer (Chronic) Lipoma of back (Chronic) 8 cm lipoma upper back/posterior neck Medical History: Medical History (Last Reviewed 02/09/19 @ 07:05 by Rick Whiting MD) Lipoma of back (Chronic) D17.1 8 cm lipoma upper back/posterior neck Postoperative seroma of subcutaneous tissue after dermatologic procedure (Acute) L76.33 Arthritis M19.90 Asthma J45.909 BREAST LUMP OR CYST Bloating R14.0 Carpal tunnel syndrome G56.00 Cataract H26.9 Depression F32.9 GASTROINTESTIONAL PROBLEMS H/O wisdom tooth extraction K08.409 Hearing problem H91.90 History of migraine headaches Z86.69 Hives L50.9 IBS (irritable bowel syndrome) LIPOMA UPPER BACK/POSTERIOR NECK Leg weakness R29.898 Mass in neck R22.1 OAB (overactive bladder) N32.81 Osteoarthritis M19.90 Pneumonia J18.9 Polycystic ovary E28.2 Psoriasis L40.9 Recurrent infections B99.9 SPINAL STENOSIS - MULTIPLE BACK ISSUES Seasonal allergies J30.2 Vision problems H54.7 Allergies nabumetone Allergy (Verified 12/31/18 14:12) Hives thimerosal Allergy (Verified 12/31/18 14:12) Other PER ALLERGY TESTING naproxen [From Naprosyn] Adverse Reaction (Verified 12/31/18 14:12) Other oxycodone HCl [From Percocet] Adverse Reaction (Verified 12/31/18 14:12) Other birds Allergy (Uncoded 12/31/18 14:12) Other molds Allergy (Uncoded 12/31/18 14:12) Other seasonal Allergy (Uncoded 12/31/18 14:12) Other COWS Adverse Reaction (Uncoded 02/09/19 06:34) Other Home Medications: Ambulatory Orders Medication Instructions Recorded Albuterol Aerosols [Ventolin 2.5 mg INHALATION Q6H PRN PRN 09/22/17 Aerosols] Baclofen [Lioresal] 10 mg PO TID 09/22/17 Calcium Carbonate/Vitamin D3 1 ea PO DAILY 09/22/17 [Calcium 500-Vit D3 200 Tablet] Diclofenac Sodium 100 gm TP 4X/DAY 09/22/17 Diclofenac [Voltaren] 75 mg PO BIDCM 09/22/17 Econazole [Spectazole] 1 applic TOPICAL DAILY 09/22/17 Fluoxetine [Prozac] 40 mg PO DAILY 09/22/17 Linaclotide [Linzess] 290 mcg PO DAILY 09/22/17 Mirabegron [Myrbetriq] 25 mg PO DAILY 09/22/17 Mirtazapine [Remeron] 30 mg PO QHS 09/22/17 Pregabalin [Lyrica] 100 mg PO TID 09/22/17 buPROPion SR [Wellbutrin SR (150mg 150 mg PO BID 09/22/17 tablets)] Docusate Sodium [Colace] 100 mg PO BID cap 11/29/17 Lactobacillus Combo No.11 1 ea PO DAILY #60 cap.sprink 11/29/17 [Probiotic] Cholecalciferol (Vitamin D3) 1,000 unit PO DAILY 03/18/18 [Vitamin D3] Cyanocobalamin [Vitamin B12] 500 mcg PO DAILY@0800 03/18/18 guselkumab 100 mg/mL subcutaneous 100 mg SC Q8W 07/23/18 syringe omega-3 fatty acids 1,000 mg 1,000 mg PO DAILY 11/30/18 capsule pantoprazole 40 mg tablet,delayed 40 mg PO DAILY 11/30/18 release phentermine 37.5 mg capsule 37.5 mg PO DAILY 11/30/18 hydrocodone 5 mg-acetaminophen 325 2 tab PO Q4H PRN 12/03/18 mg tablet Budesonide/Formoterol 160/4.5 2 puff INHALATION BID 02/04/19 [Symbicort 160/4.5 Mcg Inhaler (SP)] Folic Acid 0.8 mg PO DAILY 02/04/19 Methotrexate Sodium [Methotrexate] 10 mg PO TU 02/04/19 Prednisone 10 mg PO PRN PRN 02/04/19 Pyridoxine HCl (Vitamin B6) 100 mg PO DAILY 02/04/19 [Vitamin B-6] Clobetasol Propionate/Emoll 1 oint TOPICAL DAILY 02/09/19 [Clobetasol Emollient 0.05% Crm] Surgical History: Surgical History (Last Reviewed 02/09/19 @ 07:05 by Rick Whiting MD) ADENOIDS AND TONSILS 1975 CATARACT L & R, TORIC LENS REPLACEMENT 2016 COMPLETE HYSTERECTOMY WITH BSO 2015 Deviated septum J34.2 EXCISION 8 CM PAINFUL SOFT TISSUE MASS UPPER BACK/POSTERIOR NECK - 09/23/17 H/O bilateral breast reduction surgery Onset Date: ~2012 Z98.890 RADIOFRQUENSY ABLATION 2017 Smoking Status: Never smoker Review of Systems Constitutional: Reports: Fatigue. Denies: Chills, Fever, Weight Change HEENT: Reports: - - Patient has had eye surgery with eye injuries. She has hoarseness. No difficulty swallowing or swollen glands. Cardiovascular: Denies: Chest Pain, Chest Pressure, Chest Tightness, Palpit ations Respiratory: Reports: Shortness of Breath Gastrointestinal: Reports: Constipation, - - Patient has acid reflux. VTE Information - Inpt Only VTE Present on Admission: No VTE Mechan Device Prophylaxis: None VTE Pharm Prophylaxis ordered?: No Reason prophylaxis not ordered:: Treatment Not Indicated Patient Problems: Active and Suspected Problems (Last Reviewed 02/09/19 @ 07:05 by Rick Whiting MD) GERD (gastroesophageal reflux disease) (Acute) - Physical Exam General: Alert, Oriented x3 Neck: Supple, No JVD Lungs: Clear to auscultation Cardiovascular: Regular rate, Regular Rhythm, No murmurs Abdomen: Bowel Sounds Present, Soft, Non Tender, Non-Distended, Obese Vital Signs Temp Pulse Resp BP Pulse Ox 99.0 F 81 16 128/104 H 96 02/09/19 06:25 02/09/19 06:25 02/09/19 06:25 02/09/19 06:25 02/09/19 06:25 Oxygen Delivery Method Room Air Weight: 238 lb 15.697 oz Body Mass Index (BMI) 37.4 Assessment/Plan All Active Problems (Last Reviewed 02/09/19 @ 07:05 by Rick Whiting MD) GERD (gastroesophageal reflux disease) (Acute) Non-healing surgical wound (Acute) Complication, postoperative infection (Acute) Open wound of back wall of thorax without penetration into thoracic cavity (Acute) Postoperative hematoma of subcutaneous tissue following dermatologic procedure (Acute) Postoperative seroma of subcutaneous tissue after dermatologic procedure (Acute) My plan will be to perform a EGD with 48-hour pH probe. I have explained the risk and benefits of the procedure and described the procedure in great detail. I discussed the risk with the patient including but not limited to infection b leeding perforation of the GI check requiring emergent surgery inability to complete the procedure. Injury to any internal organs complications of anesthesia etc. Patient understands and agrees to the procedure.
[2019-02-09 07:20] VITALS: BP 124/85; BP 128/104; PULSE 77; RESP 18; TEMP 36.7; O2SAT 93
[2019-02-09 07:25] VITALS: BP 128/104; BP 97/77; PULSE 73; RESP 18; O2SAT 95
--- NOTE | 2019-02-09 07:28 | OP.ENDO_ITS ---
02/09/2019 Everton Acevedo [address] [place] [id number] Re : Upper GI endoscopy procedure for Lizet Coleman Dear Dr. Acevedo This procedure was performed on Saturday, February 09, 2019. My impressions and recommendations are as follows: Impressions : - Z-line regular, 40 cm from the incisors. - Normal esophagus. - Non-bleeding erosive gastropathy. No specimens collected. - Normal examined duodenum. No specimens collected. - An esophageal pH probe catheter was placed. Recommendations : - Discharge patient to home. - Resume previous diet. - Continue present medications. - Return to my office in 1 week. My findings are described in the full procedure note, which is enclosed. If I can be of further assistance, please feel free to contact me at Doctor phone number(s): , Fax: [phone], Work: . Sincerely, MD Rick Arenas MD 02/09/2019 7:27:49 AM This report has been signed electronically.
[2019-02-09 07:30] VITALS: BP 128/104; BP 138/84; PULSE 73; RESP 18; O2SAT 96
[2019-02-09 07:36] VITALS: BP 128/104; BP 155/90; PULSE 72; RESP 18; TEMP 36.3; O2SAT 94
[2019-02-09 08:10] VITALS: BP 128/104
== END 2019-02-09 08:10 | disposition home or self-care (01) ==
LOC: EN 05:57 → AC 05:58
PROVIDERS: Family Provider Student in an Organized Health Care Education/Training Program; PCP Student in an Organized Health Care Education/Training Program; Referring Provider Student in an Organized Health Care Education/Training Program; Visit Provider Surgery
PROC: (CPT 43235; principal; 2019-02-09 06:30)
DX: K21.9 Gastro-esophageal reflux disease without esophagitis (principal); M19.90 Unspecified osteoarthritis, unspecified site; J45.909 Unspecified asthma, uncomplicated; F32.9 Major depressive disorder, single episode, unspecified; F41.9 Anxiety disorder, unspecified; G47.30 Sleep apnea, unspecified; Z79.51 Long term (current) use of inhaled steroids; Z79.899 Other long term (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 therapy
CPT/HCPCS: 43235; 91034; J7120; J2405

== ENCOUNTER 2019-03-05 10:30 | Outpatient (RCR) | payer OTHER, SELFPAY ==
[2018-12-29 12:48] VITALS: BMI 38.3
--- NOTE | 2019-01-04 08:57 | HP.PTEVAL_ITS ---
Patient's Visit Information GAY SHAFER is a 53 year old F referred to Physical Therapy by Mary Krueger MD with a diagnosis of Cervical Pain. Date of Evaluation: 01/04/19 Physical Therapist: Abigail Hein DPT - Visit Plan Frequency: 2x /Week Duration: 3 Weeks Plan: Start after PT ends at CC- Dry needling, manual and stretching/strength - Subjective Findings: Arthriis throughout her spine- she has had pain for several years- the pain is gradually getting worse. Goes to PT for her back/knee and ankle- [facility]- had an evaluation on Friday and has 6 more visits scheduled. Is doing ROM for her ankle and strengthening for her back. Has her first apt with Dr. Beltran. She has had 3 surgeries- painful lipoma removed- did not heal properly so she had to be opened for 4 months. Has just been cleared about a month ago from him that it closed shut- it was open for over a year. The pain is chronic when she moves- stiffness and ROM. Worst: 06/12 Agg: movement Had injections about a month ago in C4-C7 which seemed to help. Best: 03/12 Easese: massage, injections, heat or ice pack, TENS unit, Gel 4x a day. Pain is located throughout the cervical spine. Has N/T in the right middle fingers- bilateral leg weakness due to spinal issues but is not being addressed. Saw Dr. Krueger who reports surgery is not an option. Right hand dominate. Describes the neck pain as dull and achy- No radiating pain down her arms. Headaches- gets them 3x a week- across the forehead- feels like their is a heavy weight along the top of her upper traps. 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 No blurred vision or dizziness. Is fully I with ADL's and does drive. Wears an ankle brace on the left. Sleep: not disturbed but takes sleep medication- wears a BiPaP- side sleeper left side. Dr. Krueger took x- rays last week. Does have behavioral health. Work: is trying to get disability- but does not have a date. PMHx/Meds: none - Objective Posture: FH, RS, increased kyphosis- can correct but does not maintain. Gait: slow bhavna, decreased heel/toe pattern- decreased trunk rotation and arm swing. Observation: significant scarring over CT junction. ROM: Cervical: flexion: WNL, Extn: WNL, SB: decreased by 50%, Rot: decreased by 50% pain with all movements. Shoulder: WNL, Elbow/Wrist/Hand: WNL. Strength: Scap: poor, Shoulder: 4/5 throughout Cervical isometrics: 4/5. Palpation: not tender to touch but does have trigger points throughout - Goals Goal 1:: Patient will be I with HEP and progression Goal Time Frame: 4-6 Weeks Goal 2:: Patient will demo full AROM of the cervical spine Goal Time Frame: 4-6 Weeks Goal 3:: Patient will maintain proper posture t/o tx session to demo increased scap s/s. Goal Time Frame: 4-6 Weeks Goal 4:: Patient will report no more than 5/10 pain for 1 week Goal Time Frame: 4-6 Weeks - Rehabilitation Potential Physical Therapy Diagnosis: Patient presents with hypomobility-she has decreased ROM, strength and muscular endurance leading to poor posture and increased pain with ADL's. Rehabilitation Potential: Fair - Anticipated Interventions Patient/Client Instruction: Educate patient on: Benefits of Fitness Program Therapeutic Exercise to Include: Strength training, Endurance training, Body mechanics, Postural training, Passive ROM, Active ROM, Scapular Strength/Stabilization For the Purpose of:: To improve muscle performance and motor function, To improve ability to perform ADL's Manual Therapy Techniques to Include: Mobilization, Functional dry needling, Soft tissue mobilization For the Purpose of:: To increase oxygenation perfusion Thank you for the opportunity to evaluate your patient. For Medicare and Medicare HMO plans, please review the plan of care and approve it. It will need to be FAXED BACK to us at [phone] for Medicare purposes. For Medicare only, by signing this I certify the plan of care. Please let me know if there are questions or concerns regarding this plan of care. Physician Signature: Date:
--- NOTE | 2019-03-05 12:44 | HP.PTREVAL ---
Mary Krueger MD, It has been my pleasure to treat GAY SHAFER over the last 8 visits for Cervical Pain. Please see the progress note below for an update on the physical therapy plan of care! Subjective: Pt. reports I feel like I am about 55% better.' Pt. reprots increased compliant with her HEP and is noticing increased ROM. Pt. reports that she contiunes to have soreness in B UT and B levator scapulea, but HAs have improved. Objective/Function: ROM- Cervical- flexion nil loss NE, ext min/mod loss mild icnrease NE, rotatin min loss bilat NE, SB min loss bilat NE. Cervical iso- 5/5 throughout NE. Pt. has overall improved EDWARD and increaes cervical ROM. Pt. is working on stretching and postural control exercises at home. Pt. has had decent reduction in symptoms with DN Plan Plan: POC extended x2 per week for 3 weeks. PRogress DN and exericse to increase posture and reduce tissue restrictions Goals Goal 1:: Patient will be I with HEP and progression Goal Time Frame: 4-6 Weeks Goal Progress: Progressing Goal 2:: Patient will demo full AROM of the cervical spine Goal Time Frame: 4-6 Weeks Goal Progress: Progressing Goal 3:: Patient will maintain proper posture t/o tx session to demo increased scap s/s. Goal Time Frame: 4-6 Weeks Goal Progress: Progressing Goal 4:: Patient will report no more than 5/10 pain for 1 week Goal Time Frame: 4-6 Weeks Goal Progress: Progressing Anticipated Interventions Patient/Client Instruction: Educate patient on: Benefits of Fitness Program Therapeutic Exercise to Include: Strength training, Endurance training, Body mechanics, Postural training, Passive ROM, Active ROM, Scapular Strength/Stabilization For the Purpose of:: To improve muscle performance and motor function, To improve ability to perform ADL's Manual Therapy Techniques to Include: Mobilization, Functional dry needling, Soft tissue mobilization For the Purpose of:: To increase oxygenation perfusion Please do not hesitate to contact me at [phone] by phone or if you have questions or concerns regarding this new plan of care! Sincerely, Isai Mccray DPT
--- NOTE | 2019-07-12 07:59 | HP.PT.NRP ---
HP - Discharge Summary (1) - Patient Information GAY SHAFER was seen in my office for initial evaluation on 01/04/19. The following Plan of Care was established for this patient: Initial Frequency: 2x /Week Initial Duration: 3 Weeks - Anticipated Interventions Patient/Client Instruction: Educate patient on: Benefits of Fitness Program Therapeutic Exercise to Include: Strength training, Endurance training, Body mechanics, Postural training, Passive ROM, Active ROM, Scapular Strength/Stabilization For the Purpose of:: To improve muscle performance and motor function, To improve ability to perform ADL's Manual Therapy Techniques to Include: Mobilization, Functional dry needling, Soft tissue mobilization For the Purpose of:: To increase oxygenation perfusion This patient was last seen in our office 03/05/19. Pertinent comments regarding their Physical therapy will appear below: Pt. has not been seen in several months. Pt. did show upto PT this date, but I informed her that it has been several months since being seen in PT and really needs to follow up with her physician prior to initiating PT. Pt. will be DC from PT at this point in time. At this point I will be discontinuing this patient from physical therapy. I would be happy to see this patient again in the future if found appropriate by the physician. Thank you! TR GarnicaT
== END 2019-03-05 19:00 | disposition home or self-care (01) ==
LOC: PT 10:30
PROVIDERS: Family Provider Student in an Organized Health Care Education/Training Program; PCP Student in an Organized Health Care Education/Training Program; Referring Provider Orthopaedic Surgery; Visit Provider Orthopaedic Surgery
DX: M79.10 Myalgia, unspecified site (principal)
CPT/HCPCS: 97110; 97140; 97162; 97530

== ENCOUNTER → 2019-03-09 13:55 | Outpatient (CLI) | payer OTHER, SELFPAY ==
[2019-02-09 06:25] VITALS: BMI 37.4
[2019-03-09 14:21] LABS: Pathologist Comment May follow
[2019-03-09 14:52] LABS: RBC /Synovial Fluid 0.002 10^6/uL (0); Synovial Fld Mononuclear WBC % 75.5 %; Synovial Fld Polynuclear WBC # 0.077 10^3/ul; Synovial Fld Polynuclear WBC % 24.5 %
[2019-03-09 14:58] LABS: AUTO B FLUID DILUENT BKGD CT WBC <0.1 RBC <0.01 (W<.1,R<.01); Appearance /Synovial Fluid Cloudy (CLEAR); Color / Synovial Fluid Yellow (Pale Yellow); Source- Body Fluid SYNOVIAL; Viscosity / Synovial Fluid Sl. Viscous (HIGH)
[2019-03-09 15:18] LABS: Body Fluid QC Type(s) BF2
[2019-03-09 16:23] LABS: Lymph 17 %; Monocyte /Synovial Fluid 11 %; Neutrophil 2 % (0-25); Other Cell /Synovial Fluid 70 %
[2019-03-09 16:24] LABS: Source / Synovial Fluid RIGHT KNEE; Synovial Fld Mononuclear WBC # 0.237 10^3/ul
[2019-03-10 15:01] LABS: Pathologist Review Reviewed
== END ==
PROVIDERS: Family Provider Student in an Organized Health Care Education/Training Program; PCP Student in an Organized Health Care Education/Training Program; Referring Provider Internal Medicine Rheumatology; Visit Provider Internal Medicine Rheumatology
DX: L40.59 Other psoriatic arthropathy (principal); Z79.899 Other long term (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 therapy; M79.7 Fibromyalgia; L40.8 Other psoriasis
CPT/HCPCS: 87070; 87075; 87205; 89050; 89051; 89060

== ENCOUNTER → 2019-03-26 12:11 | Outpatient (CLI) | payer OTHER, SELFPAY ==
[2019-03-26 13:58] LABS: Absolute Lymphocyte Count 1.69 X10^3/ul (0.83-4.51); Basophil# 0.02 X10^3/uL; Basophil% 0.3 % (0-1); Eosinophil# 0.06 X10^3/uL; Eosinophils% 0.8 % (0-5); Hematocrit 40.7 % (37-47); Hemoglobin 12.9 g/dl (12.0-15.0); Lymphocyte # 1.69 X10^3/ul (4.0); Lymphocyte % 23.2 % (19-41); Mean Corp Hgb Conc 31.7 g/gl (32-36); Mean Corpuscular Hgb 30.4 pg (27.0-32.0); Mean Corpuscular Volume 95.8 fL (81-99); Mean Platelet Vol. 10.4 fl (6.2-12.0); Monocyte# 0.47 X10^3/uL; Monocyte% 6.4 % (0-10); Neutrophil # 5.04 X10^3/uL (2.7-7.7); Platelet Count 269 K/mm3 (150-450); RBC Distribution Width CV 14.9 % (11.6-14.6); RBC Distribution Width SD 49.7 fl (35.1-43.9); Red Blood Count 4.25 M/mm3 (4.2-5.4); White Blood Count 7.3 K/mm3 (4.4-11.0)
[2019-03-26 14:00] LABS: POSITIVE COUNT NO; POSITIVE DIFFERENTIAL NO; POSITIVE MORPHOLOGY NO
[2019-03-26 14:23] LABS: ALB/GLOB Ratio 1.1 RATIO (0.9-2.4); AST(SGOT) 15 U/L (15-37); Alanine Aminotransfer ALT/SGPT 39 U/L (13-56); Albumin, Serum 3.9 g/dL (3.2-5.0); Alkaline Phosphatase 83 U/L (45-117); Anion Gap 7 (5-15); BUN 18 mg/dL (7-18); BUN/Creat Ratio 22.4 RATIO (10-20); Calcium,Total 8.8 mg/dL (8.5-10.1); Chloride 109 mmol/L (98-107); EST Glomerular Filtration Rate 79 mL/min (>60); Est Glom Filt Rate - Afr Amer 96 mL/min (>60); Globulin 3.4 g/dL (2.2-4.2); Glucose 77 mg/dL (74-106); Potassium 3.6 mmol/L (3.5-5.1); Protein, Total 7.3 g/dL (6.4-8.2); Sodium Level 144 mmol/L (136-145)
== END ==
PROVIDERS: Family Provider Student in an Organized Health Care Education/Training Program; PCP Student in an Organized Health Care Education/Training Program; Referring Provider Internal Medicine Rheumatology; Visit Provider Internal Medicine Rheumatology
DX: L40.59 Other psoriatic arthropathy (principal); M79.7 Fibromyalgia; L40.8 Other psoriasis; K21.9 Gastro-esophageal reflux disease without esophagitis; M48.061 Spinal stenosis, lumbar region without neurogenic claudication; M48.02 Spinal stenosis, cervical region
CPT/HCPCS: 36415; 80053; 85025

== ENCOUNTER 2019-04-19 13:07 | Outpatient (RCR) | payer OTHER, SELFPAY ==
[2018-12-03 14:26] VITALS: BMI 38.2
== END 2019-05-02 23:59 ==
LOC: NS 13:07
PROVIDERS: Family Provider Student in an Organized Health Care Education/Training Program; PCP Student in an Organized Health Care Education/Training Program; Referring Provider Student in an Organized Health Care Education/Training Program; Visit Provider Podiatrist
DX: E66.3 Overweight (principal); Z68.37 Body mass index [BMI] 37.0-37.9, adult; Z71.3 Dietary counseling and surveillance; M06.4 Inflammatory polyarthropathy; M79.7 Fibromyalgia; S99.912A Unspecified injury of left ankle, initial encounter; S99.922A Unspecified injury of left foot, initial encounter
CPT/HCPCS: 97802

== ENCOUNTER → 2019-05-10 12:04 | Outpatient (CLI) | payer OTHER, SELFPAY ==
[2019-05-10 13:48] LABS: Absolute Lymphocyte Count 1.98 X10^3/ul (0.83-4.51); Absolute Neutrophil Count 3.4 X10^3/uL (2.0-7.7); Basophil# 0.02 X10^3/uL; Basophil% 0.3 % (0-1); Eosinophil# 0.04 X10^3/uL; Eosinophils% 0.7 % (0-5); Hematocrit 38.8 % (37-47); Hemoglobin 12.3 g/dl (12.0-15.0); Lymphocyte # 1.98 X10^3/ul (4.0); Mean Corp Hgb Conc 31.7 g/gl (32-36); Mean Corpuscular Hgb 30.6 pg (27.0-32.0); Mean Corpuscular Volume 96.5 fL (81-99); Mean Platelet Vol. 10.3 fl (6.2-12.0); Monocyte# 0.54 X10^3/uL; Neutrophil % 56.7 % (47-70); Platelet Count 294 K/mm3 (150-450); RBC Distribution Width CV 15.2 % (11.6-14.6); RBC Distribution Width SD 51.5 fl (35.1-43.9); Red Blood Count 4.02 M/mm3 (4.2-5.4)
[2019-05-10 13:51] LABS: POSITIVE COUNT NO; POSITIVE DIFFERENTIAL NO; POSITIVE MORPHOLOGY NO
[2019-05-10 14:19] LABS: AST(SGOT) 15 U/L (15-37); Alanine Aminotransfer ALT/SGPT 31 U/L (13-56); Albumin, Serum 3.8 g/dL (3.2-5.0); Alkaline Phosphatase 66 U/L (45-117); Bilirubin, Direct 0.08 mg/dL (0.00-0.30); Globulin 2.9 g/dL (2.2-4.2); Protein, Total 6.7 g/dL (6.4-8.2)
[2019-05-13 05:07] LABS: QNTFERON TB Mitogen Value > 10.00 IU/mL (.); QNTFERON TB Nil Value 0.02 IU/mL (.); QNTFERON TB1+ Ag Value 0.02 IU/mL (.); QNTFERON TB2+ Ag Value 0.02 IU/mL (.)
[2019-05-13 08:04] LABS: QNTIFERON TB Positive Criteria Negative (Negative)
== END ==
PROVIDERS: Family Provider Student in an Organized Health Care Education/Training Program; PCP Student in an Organized Health Care Education/Training Program; Referring Provider Dermatology; Visit Provider Dermatology
DX: L40.3 Pustulosis palmaris et plantaris (principal); R23.2 Flushing; L71.8 Other rosacea; L74.511 Primary focal hyperhidrosis, face; Z79.899 Other long term (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 therapy; L56.4 Polymorphous light eruption
CPT/HCPCS: 36415; 80076; 85025; 86480

== ENCOUNTER 2019-06-01 11:00 | Outpatient (RCR) | payer OTHER, SELFPAY | END 2019-06-02 23:59 | LOC: NS 11:00 | PROVIDERS: Family Provider Student in an Organized Health Care Education/Training Program; PCP Student in an Organized Health Care Education/Training Program; Referring Provider Student in an Organized Health Care Education/Training Program; Visit Provider Podiatrist | DX: E66.3 Overweight (principal); Z68.37 Body mass index [BMI] 37.0-37.9, adult; Z71.3 Dietary counseling and surveillance; M06.4 Inflammatory polyarthropathy; M79.7 Fibromyalgia; S99.912A Unspecified injury of left ankle, initial encounter; S99.922A Unspecified injury of left foot, initial encounter | CPT/HCPCS: 97803 ==

== ENCOUNTER → 2019-06-16 14:22 | Outpatient (CLI) | payer MEDICARE, OTHER, SELFPAY ==
[2019-06-16 15:42] LABS: Absolute Lymphocyte Count 2.01 X10^3/uL (0.83-4.51); Absolute Neutrophil Count 5.3 X10^3/uL (2.0-7.7); Basophil# 0.04 X10^3/uL; Basophil% 0.5 % (0-1); Eosinophil# 0.04 X10^3/uL; Eosinophils% 0.5 % (0-5); Hematocrit 38.6 % (37-47); Hemoglobin 12.4 g/dL (12.0-15.0); Lymphocyte # 2.01 X10^3/ul (4.0); Lymphocyte % 25.3 % (19-41); Mean Corp Hgb Conc 32.1 g/dL (32-36); Mean Corpuscular Volume 99.5 fL (81-99); Mean Platelet Vol. 10.4 fl (6.2-12.0); Monocyte# 0.52 X10^3/uL; Monocyte% 6.6 % (0-10); NRBC Flagged by Analyzer 0 % (0-5); Neutrophil % 66.8 % (47-70); Platelet Count 296 K/mm3 (150-450); RBC Distribution Width CV 14.3 % (11.6-14.6); RBC Distribution Width SD 51.8 fl (35.1-43.9); Red Blood Count 3.88 M/mm3 (4.2-5.4); White Blood Count 7.9 K/mm3 (4.4-11.0)
[2019-06-16 16:12] LABS: ALB/GLOB Ratio 1.3 RATIO (0.9-2.4); AST(SGOT) 14 U/L (15-37); Alanine Aminotransfer ALT/SGPT 33 U/L (13-56); Albumin, Serum 3.9 g/dL (3.2-5.0); Alkaline Phosphatase 83 U/L (45-117); Anion Gap 5 (5-15); BUN 22 mg/dL (7-18); BUN/Creat Ratio 24.8 RATIO (10-20); Calcium,Total 8.9 mg/dL (8.5-10.1); Chloride 109 mmol/L (98-107); Creatinine, Serum 0.89 mg/dL (0.55-1.02); EST Glomerular Filtration Rate 71 mL/min (>60); Est Glom Filt Rate - Afr Amer 85 mL/min (>60); Glucose 80 mg/dL (74-106); Potassium 3.9 mmol/L (3.5-5.1); Protein, Total 6.9 g/dL (6.4-8.2); Sodium Level 141 mmol/L (136-145)
== END ==
PROVIDERS: Family Provider Student in an Organized Health Care Education/Training Program; PCP Student in an Organized Health Care Education/Training Program; Referring Provider Internal Medicine Rheumatology; Visit Provider Internal Medicine Rheumatology
DX: L40.59 Other psoriatic arthropathy (principal); Z79.899 Other long term (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 therapy; M79.7 Fibromyalgia; M25.561 Pain in right knee; L40.8 Other psoriasis; K21.9 Gastro-esophageal reflux disease without esophagitis; M48.061 Spinal stenosis, lumbar region without neurogenic claudication; M48.02 Spinal stenosis, cervical region; K58.0 Irritable bowel syndrome with diarrhea
CPT/HCPCS: 36415; 80053; 85025

== ENCOUNTER 2019-06-29 10:47 | Outpatient (RCR) | payer MEDICARE, OTHER, SELFPAY | END 2019-06-29 23:59 | disposition home or self-care (01) | LOC: NS 10:47 | PROVIDERS: Family Provider Student in an Organized Health Care Education/Training Program; PCP Student in an Organized Health Care Education/Training Program; Referring Provider Student in an Organized Health Care Education/Training Program; Visit Provider Podiatrist | DX: E66.3 Overweight (principal); Z68.37 Body mass index [BMI] 37.0-37.9, adult; Z71.3 Dietary counseling and surveillance; M06.4 Inflammatory polyarthropathy; M79.7 Fibromyalgia; S99.912A Unspecified injury of left ankle, initial encounter; S99.922A Unspecified injury of left foot, initial encounter | CPT/HCPCS: 97803 ==

== ENCOUNTER 2019-08-20 11:00 | Outpatient (RCR) | payer MEDICARE, OTHER, SELFPAY ==
--- NOTE | 2019-07-27 07:58 | HP.PTEVAL_ITS ---
Patient's Visit Information GAY SHAFER is a 53 year old F referred to Physical Therapy by Everton Acevedo DO with a diagnosis of Neck pain. Date of Evaluation: 07/26/19 Physical Therapist: Isai Mccray DPT - Visit Plan Frequency: 2x /Week Duration: 4-6 Weeks Plan: 1) DN and trigger point release to B UT and levator scapulea. 2) gentel stretching for same regions. 3) cervical isometrics including chin tucks and cervical retraction exercises. 4) postural strengthening as tolerated. - Subjective Findings: Pt. is here today for her initial diagnosis of cervical spine pain including: DDD, lumbar stenosis, chronic neck pain. Pt. has been dealing with neck pain for years. Unknown time frame. Pt. reports having injections recently on L side of cervical spine with mild relief. Pt. reports no changes in her ROM, but does feel like the injections helped her pain. Sleeping: okay today, but last few days have been tough. She does reports some numbness in tingling in her R 2nd through 4th fingers. Pt. reports having 8/10 pain in her neck today. Worse 9.5/10 at worst. Increased pain with ROM, looking down and either shoulder. Better: heat, massage. Medication takes the edge off. Pt. reports she wants to reduce her symptoms and get back to all of her ADLs and functional mobility without issues. - Pain Cervical spine Pain Intensity (Out of 10): 8 - Objective POSTURE: Pt. has FH posture, rounded shoulders, protracted scapulea. Pt. is able to correct, but has increased pain when try. PALPATION: Pt. has large i ncision at CT juction from lypoma extraction. With subsequent skin graft. NEURO: Pt. has normal sensation throughout BUEs, pt. has normal DTR bilateral UEs. ROM: Pt. has normal shoulder ROM bilaterally without increase in symptoms. CERVICAL SPINE: flexion- mod loss increase NW, ext mod loss increase NW, rotation min/mod loss bilat increase NE, SB min/nil loss incerase NW bilat. MMT: BUEs- 5/5 throughout; marked weakness in scpaular region. CERVICAL SPINE: 5/5 isometrics - Goals Goal 1:: Pt. to be I with HEP. Goal Time Frame: 4-6 Weeks Goal 2:: Pt. to have increased cervical ROM by 25% in all directions without increase in symptoms. Goal Time Frame: 4-6 Weeks Goal 3:: Pt. has decreased pain while sleeping to 0-2/10 allowing for increased quality of life. Goal Time Frame: 4-6 Weeks Goal 4:: Pt. to complete all ADLs with 0-2/10 pain allowing for increasd functional life style. Goal Time Frame: 4-6 Weeks Goal 5:: Pt. to demonstrate improved posture awareness by maintaining improved posture throughout therapy sessions. Goal Time Frame: 4-6 Weeks - Rehabilitation Potential Physical Therapy Diagnosis: Pt. has signs and symptoms consistent with neck pain with out radiculopathy. Pt. appears to have increased tissue density/trigger point areas at B UT and levator scapulea. Pt. also has hypomobility throughout her cervical spine. Pt. has a closed scar from a lypoma removal with multiple subsequent surgeries. Rehabilitation Potential: Good - Anticipated Interventions Patient/Client Instruction: Educate patient on: Condition, Plan of Care, Risk Factors, Benefits of Fitness Program For the Purpose of:: To foster healthy habits, To improve decision making, To facilitate caregiver knowledge, To improve self management, To prevent re- injury, To improve ability to perform tasks related to life management, To improve tolerance to ADL's Therapeutic Exercise to Include: Strength training, Power training, Body mechanics, Postural training, Flexibilty training, Passive ROM, Active ROM, Alina Exercises For the Purpose of:: To decrease pain, To decrease swelling/inflammation, To increase ROM, To improve nutrient delivery to tissue, To increase oxygenation perfusion, To improve muscle performance and motor function, To improve health of tissue, To decrease soft tissue restriction, To increase flexibility/ROM Manual Therapy Techniques to Include: Trigger point massage, Functional dry needling, Soft tissue mobilization For the Purpose of:: To decrease pain, To decrease swelling/inflammation, To increase ROM, To improve nutrient delivery to tissue Thank you for the opportunity to evaluate your patient. For Medicare and Medicare HMO plans, please review the plan of care and approve it. It will need to be FAXED BACK to us at [phone] for Medicare purposes. For Medicare only, by signing this I certify the plan of care. Please let me know if there are questions or concerns regarding this plan of care. Physician Signature: Date:
== END 2019-08-20 17:00 | disposition home or self-care (01) ==
LOC: PT 11:00
PROVIDERS: Family Provider Student in an Organized Health Care Education/Training Program; PCP Student in an Organized Health Care Education/Training Program; Referring Provider Student in an Organized Health Care Education/Training Program; Visit Provider Student in an Organized Health Care Education/Training Program
DX: M51.36 Other intervertebral disc degeneration, lumbar region (principal); M48.061 Spinal stenosis, lumbar region without neurogenic claudication; M54.2 Cervicalgia; G89.29 Other chronic pain
CPT/HCPCS: 97110; 97140; 97161

== ENCOUNTER → 2019-09-21 13:10 | Outpatient (CLI) | payer MEDICARE, OTHER, SELFPAY ==
[2019-09-21 13:54] LABS: Absolute Neutrophil Count 4.5 X10^3/uL (2.0-7.7); Basophil# 0.04 X10^3/uL; Basophil% 0.6 % (0-1); Eosinophil# 0.07 X10^3/uL; Hematocrit 38.9 % (37-47); Hemoglobin 12.3 g/dL (12.0-15.0); Lymphocyte % 28.2 % (19-41); Mean Corp Hgb Conc 31.6 g/dL (32-36); Mean Corpuscular Hgb 31.1 pg (27.0-32.0); Mean Corpuscular Volume 98.2 fL (81-99); Mean Platelet Vol. 10.4 fl (6.2-12.0); Monocyte# 0.48 X10^3/uL; Monocyte% 6.8 % (0-10); NRBC Flagged by Analyzer 0 % (0-5); Neutrophil % 63.3 % (47-70); Platelet Count 410 K/mm3 (150-450); RBC Distribution Width CV 15.3 % (11.6-14.6); RBC Distribution Width SD 54.7 fl (35.1-43.9); Red Blood Count 3.96 M/mm3 (4.2-5.4); White Blood Count 7.1 K/mm3 (4.4-11.0)
[2019-09-21 14:36] LABS: ALB/GLOB Ratio 1.1 RATIO (0.9-2.4); AST(SGOT) 9 U/L (15-37); Alanine Aminotransfer ALT/SGPT 19 U/L (13-56); Albumin, Serum 3.8 g/dL (3.2-5.0); Alkaline Phosphatase 82 U/L (45-117); Anion Gap 7 (5-15); BUN 19 mg/dL (7-18); BUN/Creat Ratio 24.7 RATIO (10-20); Calcium,Total 9.3 mg/dL (8.5-10.1); Chloride 109 mmol/L (98-107); Creatinine, Serum 0.77 mg/dL (0.55-1.02); EST Glomerular Filtration Rate 83 mL/min (>60); Est Glom Filt Rate - Afr Amer 100 mL/min (>60); Globulin 3.4 g/dL (2.2-4.2); Glucose 74 mg/dL (74-106); Potassium 3.6 mmol/L (3.5-5.1); Protein, Total 7.2 g/dL (6.4-8.2); Sodium Level 143 mmol/L (136-145)
== END ==
PROVIDERS: Family Provider Student in an Organized Health Care Education/Training Program; PCP Student in an Organized Health Care Education/Training Program; Referring Provider Internal Medicine Rheumatology; Visit Provider Internal Medicine Rheumatology
DX: L40.59 Other psoriatic arthropathy (principal); Z79.899 Other long term (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 therapy; M79.7 Fibromyalgia; L40.8 Other psoriasis; K21.9 Gastro-esophageal reflux disease without esophagitis; M48.061 Spinal stenosis, lumbar region without neurogenic claudication; M48.02 Spinal stenosis, cervical region; K58.0 Irritable bowel syndrome with diarrhea; N32.81 Overactive bladder; F41.9 Anxiety disorder, unspecified; F32.89 Other specified depressive episodes; J45.909 Unspecified asthma, uncomplicated
CPT/HCPCS: 36415; 80053; 85025

== ENCOUNTER 2019-12-06 08:33 | Day surgery (SDC) | payer MEDICARE, OTHER, SELFPAY ==
[2019-12-06] VITALS (9 sets, daily range): BP systolic 120–140; BP diastolic 64–87; PULSE 61–87; RESP 16; TEMP 37–37.4; O2SAT 96–98; BMI 37.4
[2019-12-06] MEDS: Lactated Ringers 1,000 ML 100 ML IV (09:57)
[2019-12-06] MEDS: Cefazolin 2 GM in 0.9% Normal Saline 100 ML IV (10:43)
--- NOTE | 2019-12-06 10:51 | RAD_ITS ---
STUDY: X-RAY - LUMBAR SPINE REASON FOR EXAM: Female, 54 years old. SPINAL CORD INSERTION -- 8 FLUORO IMAGES, 415.8 FLUORO SEC, 108.31mGy TECHNIQUE: A coned-down view(s) of the lumbar spine were obtained. COMPARISON: None FINDINGS: Intraoperative imaging provided for spinal cord stimulator insertion. The tip is at the T7 and T8 vertebral level. RAD/Lumbar Spine 2 or 3 Views IMPRESSION: Intraoperative imaging provided for spinal cord stimulator insertion. Electronically Signed: Anshul Sams, at 12:54 EST , Service support ,
[2019-12-06] MEDS: 0.9% Normal Saline (Pres. free 10 ML Vial (10:53)
[2019-12-06] MEDS: Bupivacaine 0.25% 30 ML Vial (11:32)
[2019-12-06] MEDS: Bacitracin 500 UNITS/GM PACKET (12:05)
--- NOTE | 2019-12-06 12:55 | SUR.PHASEI ---
PT COM PLAINS OF LEFT EYE PAIN, ON ASSESSMENT LEFT EYE IS RED AND IRRITATED. DR PARISI ADVISED.
--- NOTE | 2019-12-06 13:01 | SUR.PHASEI ---
DR PARISI TO IRRIGATE AND APPLY ANTIBIOTIC OINTMENT TO LEFT EYE
--- NOTE | 2019-12-06 13:02 | SUR.PHASEI ---
PER DR PARISI PT WILL NEED TO FOLLOW UP WITH OPTOMOLOGIST.
--- NOTE | 2019-12-06 13:12 | SUR.PHASEI ---
PT TO SEE DR ELLIS PER DR ISAK POWELL
[2019-12-06] MEDS: Acetaminophen 500 MG Tablet 1000 MG PO (13:47)
--- NOTE | 2019-12-06 14:22 | OP.PCM_ITS ---
Report of Operation Date of Procedure: 12/06/19 Description of Surgical Findings:: Pre-Operative Diagnosis: Lumbosacral radiculopathy, lumbosacral degenerative disc disease, lumbosacral spinal stenosis Post-Operative Diagnosis: Lumbosacral radiculopathy, lumbosacral degenerative disc disease, lumbosacral spinal stenosis Surgery/Procedure Performed:: 1. Spinal cord stimulator thoracolumbar leads placement x2 #2 spinal cord stimulator Medtronic intellus generator placement #3 spinal cord stimulator generator pocket creation at the left gluteal region #4 spinal cord stimulator simple programming, 5-intraoperative fluoroscopic interpretation Description of Surgical Findings:: PROCEDURES: 1. Spinal cord stimulator thoracolumbar leads placement x2 #2 spinal cord stimulator Medtronic intellus generator placement #3 spinal cord stimulator generator pocket creation at the left gluteal region #4 spinal cord stimulator simple programming 5-intraoperative fluoroscopic interpretation PREOPERATIVE DIAGNOSES: Lumbosacral radiculopathy, lumbosacral degenerative disc disease, lumbosacral spinal stenosis POSTOPERATIVE DIAGNOSES: Lumbosacral radiculopathy, lumbosacral degenerative disc disease, lumbosacral spinal stenosis ANESTHESIA: MAC COMPLICATIONS: None BLOOD LOSS: Minimal Implanted device: Spinal cord stimulator lead [id number] lot number [id number], lead #2 lot number [id number] Medtronic spinal cord stimulator generator intellus serial number [id number] PROCEDURE IN DETAIL: History and physical today was reviewed. Risks and benefits of procedure explained. The patient understood, agreed to procedure, informed consent was obtained. IV inserted per routine protocol. The patient was taken to the operating room, placed in the prone position with a pillow positioned underneath the abdomen. A 2 g of Ancef IV piggyback was infused per anesthesia. The lower back and left gluteal area was prepped and draped in a sterile fashion using iodine x3. The C-arm was brought in position for AP view at the L3-4 vertebral bodies under direct visualization fluoroscopy on a true AP view the L3-4 interlaminar space was identified skin and subcutaneous tissue and size approximately 10 cc of a mix of 2% lidocaine and 0.25% Marcaine using a 25- gauge regular needle followed by a 25-gauge 3-1/2 inch spinal needle towards the interlaminar space at L3-4, the skin and subcutaneous tissue were then anesthetized and using an 11-gauge blade was then taken down to the skin and subcutaneous tissue using a 14-gauge 3-1/2 inch Touhy needle provided by the [employer] kit the needle was passed through the skin towards the interlaminar space at L3-4 and a paramedian approach the needle was then advanced under direct visualization fluoroscopy towards the interlaminar space at L3-4 [id number] technique was then carried to air towards the interlaminar space at L3-4 once the tip of the needle was in the epidural space and loss of resistance was encountered to air and after confirmation of AP as well as ob lique view of the spinal cord stimulator lead was then advanced under direct visualization fluoroscopy to be at the tip of the lead at T8 and the bottom of the lead around mid T10 after confirmation of AP as well as lateral view to confirm correct placement of the lead in the posterior compartment of the epidural space the previous procedure was then repeated to a level above at L2-3 interlaminar space the second lead was then inserted under direct visualization with fluoroscopy to be at the mid T9 and mid T11 area the leads were were then connected to the external neurostimulator and patient was then awakened to confirm satisfactory coverage of the painful area once satisfactory coverage was then achieved the stylette of each needle was then removed and the skin and subcutaneous tissue on to the left of the paramedian needles was then taken anesthetized with a total of 10 cc of the previous mixture of 0.25% Marcaine and 2% lidocaine using a 25-gauge regular needle the incision was then taken down through the skin and subcutaneous tissue towards the fascia making sure hemostasis was then maintained via cautery, the spinal cord stimulator leads were then passed through the above incision and secured using the biwing and sutured down with a 2-0 nylon to the fascia at that level the spinal cord stimulator leads were then tunneled via a tunneler provided by the Medtronic kit towards the previously incised spinal cord stimulator battery at the left gluteal region skin and subcutaneous tissue were anesthetized with approximately 10 cc of a mix of 2% lidocaine and 0.25% Marcaine using a 25 gauge regular needle, skin and subcutaneous tissue was then taken down with the 11-gauge blade hemostasis was maintained with Bovie and direct pressure the incision was then taken down to the fascia and the battery was then secured with the 2-0 nylon sutures that were the spinal cord stimulator leads the upper lead was then marked the new until spinal cord stimulator battery was then provided Via [employer] kit the battery was then reattached of the spinal cord stimulator make ensure that the top lead is attached to the top position from 0-7 electrodes and the bottom from 8-15 electrodes once impedance was then checked to be in the proper average number the intellus battery was then inserted into the pocket and impedance with when checked again the pocket was then inspected to confirm hemostasis in place, the entellus battery was then secured to the fascia using a 2-0 nylon to the upper and lower eyes of the battery confirming an upward writing of the intellus facing posterior, once complete confirmation the battery was then placed in the position and the the mid paramedian and the gluteal incisions were then closed primarily through a 3-0 Vicryl in a running fashion followed by a 4-0 Vicryl to the skin, hemostasis was then maintained during the procedure the skin was then covered with a Steri-Strips and bacitracin patient was then returned into the supine position in a stable condition and returned to recovery in a stable condition patient experienced no sinus symptoms of intrathecal or intravascular injection patient experienced no paresthesia the procedure was completed without any apparent difficulty any complication the patient appeared to tolerate well ESTIMATED BLOOD LOSS: Minimal less than 25 mL ASSESSMENT AND PLAN: This is a 54-year-old female with lumbosacral radiculopathy lumbosacral degenerative disc disease lumbosacral spinal stenosis status post 1. Spinal cord stimulator thoracolumbar leads placement x2 #2 spinal cord stimulator Medtronic intellus generator placement #3 spinal cord stimulator generator pocket creation at the left gluteal region #4 spinal cord stimulator simple programming, 5-intraoperative fluoroscopic interpretation patient will continue her current medications a prescription was provided to the patient for norco 5/325 1 p.o. every 4 hours as needed acute postoperative pain and Keflex 500 mg 1 p.o. every 8 hours for 7 days postop instruction were given in writing to the patient as well as verbally and in writing to her patient will follow approximately 1 week for reevaluation
== END 2019-12-06 14:12 | disposition home or self-care (01) ==
LOC: SDC 08:35 → AC 08:37
PROVIDERS: PCP Student in an Organized Health Care Education/Training Program; Referring Provider Anesthesiology Pain Medicine; Visit Provider Anesthesiology Pain Medicine
PROC: (CPT 63685; principal; 2019-12-06 09:55)
DX: M51.17 Intervertebral disc disorders with radiculopathy, lumbosacral region (principal); M48.07 Spinal stenosis, lumbosacral region; J45.909 Unspecified asthma, uncomplicated; F32.9 Major depressive disorder, single episode, unspecified; G47.33 Obstructive sleep apnea (adult) (pediatric); K21.9 Gastro-esophageal reflux disease without esophagitis; F41.9 Anxiety disorder, unspecified; Z79.51 Long term (current) use of inhaled steroids; Z79.891 Long term (current) use of opiate analgesic; Z79.899 Other long term (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 therapy
CPT/HCPCS: 63685; 95971; 72100; 76000; C1778; C1820; J7120; A4216; J3490

== ENCOUNTER → 2019-12-14 | Outpatient (CLI) | payer MEDICARE, OTHER, SELFPAY ==
[2019-12-06 09:40] VITALS: BMI 37.4
[2019-12-14 18:08] LABS: Absolute Lymphocyte Count 1.76 X10^3/uL (0.83-4.51); Absolute Neutrophil Count 2.2 X10^3/uL (2.0-7.7); Basophil# 0.06 X10^3/uL; Basophil% 1.3 % (0-1); Eosinophils% 2.2 % (0-5); Hematocrit 38.9 % (37-47); Hemoglobin 12.5 g/dL (12.0-15.0); Lymphocyte # 1.76 X10^3/ul (4.0); Lymphocyte % 39.3 % (19-41); Mean Corp Hgb Conc 32.1 g/dL (32-36); Mean Corpuscular Hgb 30.9 pg (27.0-32.0); Mean Corpuscular Volume 96.3 fL (81-99); Mean Platelet Vol. 10.9 fl (6.2-12.0); Monocyte# 0.31 X10^3/uL; Monocyte% 6.9 % (0-10); NRBC Flagged by Analyzer 0 % (0-5); Neutrophil # 2.24 X10^3/uL (2.7-7.7); Neutrophil % 50.1 % (47-70); Platelet Count 357 K/mm3 (150-450); RBC Distribution Width CV 16.1 % (11.6-14.6); RBC Distribution Width SD 57.7 fl (35.1-43.9); Red Blood Count 4.04 M/mm3 (4.2-5.4); White Blood Count 4.5 K/mm3 (4.4-11.0)
[2019-12-14 18:54] LABS: ALB/GLOB Ratio 1.2 RATIO (0.9-2.4); AST(SGOT) 16 U/L (15-37); Alanine Aminotransfer ALT/SGPT 27 U/L (13-56); Albumin, Serum 3.9 g/dL (3.2-5.0); Alkaline Phosphatase 102 U/L (45-117); Anion Gap 5 (5-15); BUN 10 mg/dL (7-18); Calcium,Total 9.9 mg/dL (8.5-10.1); Chloride 109 mmol/L (98-107); Creatinine, Serum 0.83 mg/dL (0.55-1.02); EST Glomerular Filtration Rate 76 mL/min (>60); Est Glom Filt Rate - Afr Amer 91 mL/min (>60); Globulin 3.2 g/dL (2.2-4.2); Glucose 87 mg/dL (74-106); Potassium 3.6 mmol/L (3.5-5.1); Protein, Total 7.1 g/dL (6.4-8.2); Sodium Level 144 mmol/L (136-145)
== END | disposition home or self-care (01) ==
LOC: MTLAB 16:31
PROVIDERS: Family Provider Student in an Organized Health Care Education/Training Program; PCP Student in an Organized Health Care Education/Training Program; Referring Provider Internal Medicine Rheumatology; Visit Provider Internal Medicine Rheumatology
DX: L40.59 Other psoriatic arthropathy (principal); M79.7 Fibromyalgia; M17.11 Unilateral primary osteoarthritis, right knee; L40.8 Other psoriasis; K21.9 Gastro-esophageal reflux disease without esophagitis; M48.061 Spinal stenosis, lumbar region without neurogenic claudication; M48.02 Spinal stenosis, cervical region; Z79.899 Other long term (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 therapy
CPT/HCPCS: 36415; 80053; 85025

== ENCOUNTER → 2020-03-07 | Outpatient (CLI) | payer MEDICARE, SELFPAY ==
[2019-12-06 09:40] VITALS: BMI 37.4
[2020-03-07 14:49] LABS: Absolute Neutrophil Count 1.3 X10^3/uL (2.0-7.7); Basophil# 0.02 X10^3/uL; Basophil% 0.6 % (0-1); Eosinophil# 0.02 X10^3/uL; Eosinophils% 0.6 % (0-5); Hematocrit 36.9 % (37-47); Lymphocyte % 48.5 % (19-41); Mean Corp Hgb Conc 32.5 g/dL (32-36); Mean Corpuscular Hgb 32.3 pg (27.0-32.0); Mean Corpuscular Volume 99.5 fL (81-99); Mean Platelet Vol. 10.8 fl (6.2-12.0); Monocyte# 0.25 X10^3/uL; Monocyte% 8.1 % (0-10); NRBC Flagged by Analyzer 0 % (0-5); Neutrophil # 1.29 X10^3/uL (2.7-7.7); Neutrophil % 41.9 % (47-70); Platelet Count 261 K/mm3 (150-450); RBC Distribution Width CV 13.3 % (11.6-14.6); RBC Distribution Width SD 48.1 fl (35.1-43.9); Red Blood Count 3.71 M/mm3 (4.2-5.4); White Blood Count 3.1 K/mm3 (4.4-11.0)
[2020-03-07 15:01] LABS: ALB/GLOB Ratio 1.3 RATIO (0.9-2.4); AST(SGOT) 11 U/L (15-37); Alanine Aminotransfer ALT/SGPT 23 U/L (13-56); Albumin, Serum 3.8 g/dL (3.2-5.0); Alkaline Phosphatase 87 U/L (45-117); Anion Gap 5 (5-15); BUN 18 mg/dL (7-18); BUN/Creat Ratio 21.1 RATIO (10-20); Chloride 109 mmol/L (98-107); Creatinine, Serum 0.85 mg/dL (0.55-1.02); EST Glomerular Filtration Rate 73 mL/min (>60); Est Glom Filt Rate - Afr Amer 89 mL/min (>60); Globulin 2.9 g/dL (2.2-4.2); Glucose 76 mg/dL (74-106); Potassium 3.3 mmol/L (3.5-5.1); Protein, Total 6.7 g/dL (6.4-8.2); Sodium Level 140 mmol/L (136-145)
== END | disposition home or self-care (01) ==
LOC: MTLAB 13:37
PROVIDERS: PCP Student in an Organized Health Care Education/Training Program; Referring Provider Internal Medicine Rheumatology; Visit Provider Internal Medicine Rheumatology
DX: L40.59 Other psoriatic arthropathy (principal); M79.7 Fibromyalgia; M17.11 Unilateral primary osteoarthritis, right knee; L40.8 Other psoriasis; K21.9 Gastro-esophageal reflux disease without esophagitis; M48.061 Spinal stenosis, lumbar region without neurogenic claudication; Z79.899 Other long term (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 therapy
CPT/HCPCS: 36415; 80053; 85025

== ENCOUNTER → 2020-04-03 | Outpatient (CLI) | payer MEDICARE, OTHER, SELFPAY ==
[2019-12-06 09:40] VITALS: BMI 37.4
[2020-04-03 15:18] LABS: Absolute Lymphocyte Count 1.95 X10^3/uL (0.83-4.51); Absolute Neutrophil Count 2.6 X10^3/uL (2.0-7.7); Basophil# 0.06 X10^3/uL; Basophil% 1.2 % (0-1); Eosinophil# 0.05 X10^3/uL; Hematocrit 41.2 % (37-47); Lymphocyte # 1.95 X10^3/ul (4.0); Lymphocyte % 38.9 % (19-41); Mean Corp Hgb Conc 31.6 g/dL (32-36); Mean Corpuscular Hgb 31.6 pg (27.0-32.0); Mean Corpuscular Volume 100.2 fL (81-99); Mean Platelet Vol. 10.8 fl (6.2-12.0); Monocyte# 0.32 X10^3/uL; Monocyte% 6.4 % (0-10); NRBC Flagged by Analyzer 0 % (0-5); Neutrophil # 2.62 X10^3/uL (2.7-7.7); Neutrophil % 52.3 % (47-70); Platelet Count 300 K/mm3 (150-450); RBC Distribution Width CV 13.5 % (11.6-14.6); RBC Distribution Width SD 50.2 fl (35.1-43.9); Red Blood Count 4.11 M/mm3 (4.2-5.4)
[2020-04-03 15:33] LABS: Vitamin B12 375 pg/mL (211-911)
[2020-04-03 15:49] LABS: ALB/GLOB Ratio 1.2 RATIO (0.9-2.4); AST(SGOT) 13 U/L (15-37); Alanine Aminotransfer ALT/SGPT 27 U/L (13-56); Albumin, Serum 4.1 g/dL (3.2-5.0); Alkaline Phosphatase 88 U/L (45-117); Anion Gap 9 (5-15); BUN 16 mg/dL (7-18); BUN/Creat Ratio 18.8 RATIO (10-20); Calcium,Total 9.4 mg/dL (8.5-10.1); Chloride 108 mmol/L (98-107); Creatinine, Serum 0.85 mg/dL (0.55-1.02); EST Glomerular Filtration Rate 74 mL/min (>60); Est Glom Filt Rate - Afr Amer 89 mL/min (>60); Globulin 3.3 g/dL (2.2-4.2); Glucose 80 mg/dL (74-106); Potassium 3.3 mmol/L (3.5-5.1); Protein, Total 7.4 g/dL (6.4-8.2); Sodium Level 142 mmol/L (136-145)
[2020-04-03 16:06] LABS: Ferritin 50 ng/mL (8-252); Iron 90 ug/dL (50-170); Iron Binding Capacity,Total 377 ug/dL (250-450); PERCENT IRON SATURATION 23.9 % (15.0-55.0); T4 Free Direct 0.99 ng/dL (0.76-1.46); Thyroid Stim Hormone (TSH) 0.63 uIU/mL (0.358-3.74)
== END | disposition home or self-care (01) ==
LOC: MTLAB 13:03
PROVIDERS: PCP Student in an Organized Health Care Education/Training Program; Referring Provider Internal Medicine Rheumatology; Visit Provider Internal Medicine Rheumatology
DX: L40.59 Other psoriatic arthropathy (principal); M79.7 Fibromyalgia; M17.11 Unilateral primary osteoarthritis, right knee; L40.8 Other psoriasis; K21.9 Gastro-esophageal reflux disease without esophagitis; M48.061 Spinal stenosis, lumbar region without neurogenic claudication; M48.02 Spinal stenosis, cervical region; K58.0 Irritable bowel syndrome with diarrhea; N32.81 Overactive bladder; F41.9 Anxiety disorder, unspecified; F32.89 Other specified depressive episodes; J45.909 Unspecified asthma, uncomplicated; R53.83 Other fatigue; R63.4 Abnormal weight loss; E55.9 Vitamin D deficiency, unspecified; E61.1 Iron deficiency; Z79.899 Other long term (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 therapy; Z98.84 Bariatric surgery status
CPT/HCPCS: 36415; 80053; 82306; 82607; 82728; 83540; 83550; 84439; 84443; 85025

== ENCOUNTER 2020-05-12 13:00 | Observation (INO) | payer MEDICARE, OTHER, SELFPAY ==
[2019-12-06 09:40] VITALS: BMI 37.4
[2020-05-12] VITALS (13 sets, daily range): BP systolic 93–137; BP diastolic 59–99; PULSE 59–82; RESP 16–20; TEMP 36.7–37.2; O2SAT 96–100; BMI 23.8
[2020-05-12] MEDS: Lactated Ringers 1,000 ML 100 ML IV ×3 (08:28→14:15)
--- NOTE | 2020-05-12 08:55 | RAD_ITS ---
STUDY: X-RAY - LEFT FOOT CLINICAL: Female, 54 years old. Arthrodesis TECHNIQUE: 12 intraoperative fluoroscopic view(s) of the foot. COMPARISON: None. FINDINGS: Fluoroscopic guidance was provided during a left foot arthrodesis. Correlation with the operative report is recommended. RAD/Foot min 3 Views IMPRESSION: As above. Electronically Signed: Rajinder Grider, at 16:32 EDT Tel , Service support ,
[2020-05-12] MEDS: Cefazolin 2 GM in 0.9% Normal Saline 100 ML IV (08:58)
[2020-05-12] MEDS: Bupivacaine Mpf 0.5% 30 ML VIAL (09:36)
--- NOTE | 2020-05-12 13:10 | OP.PCM_ITS ---
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 Hardware mechanical irritation, left foot. 2. Pes planus left. 3. Left foot pain Post-Operative Diagnosis: 1. Hardware mechanical irritation, left foot. 2. Pes planus left. 3. Left foot pain Surgery/Procedure Performed:: 1. Implant removal, left foot. 2. Subtalar joint arthrodesis with internal fixation. 3. First metatarsal cuneiform arthrodesis with internal fixation Description of Surgical Findings:: Hemostasis: Well-padded pneumatic left thigh tourniquet, 120 minutes Materials: 2-0 Vicryl, 4-0 Monocryl, augment injectable, two 7.0 mm compression FT screws, plantar Lapidus plate, 3 x 3.5 mm locking screws, 1 times 4.0 cancellus screw Complications: None The patient tolerated the procedure and anesthesia well. She was transported to the PACU vital signs stable and vascular status intact to the left lower extremity. She will be admitted for postoperative pain control. Postoperative x-rays were reviewed prior to leaving the operating room including satisfactory position and approximation of the arthrodesis site at the subtalar joint and also the first metatarsal cuneiform. The hardware is in the desired trajectory and position with deformity correction noted. No acute injuries were identified. Her postoperative orders were entered electronically. 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: none - Surgeon: Lakeisha Torres DPM [employer] Machine Operator: Ebony Contreras [id number] Type of Anesthesia:: General/Regional, Local - Preoperative: One-to-one mixture of 1% lidocaine plain and 0.5% Marcaine plain administered in sural and dorsal intermediate cutaneous nerve branch local infiltration, 10 cc Intraoperative: One-to-one mixture 1% lidocaine plain and 0.5% Marcaine plain administered in medial column foot ray block fashion, 10 cc Specimen's removed: none Estimated Blood Loss (mL): <250 mL Description of Procedure: Indications: This 54 year old female with significant past medical history of sleep apnea, depression, insomnia, anxiety, psoriasis, chronic pain continues to complain of left foot pain. This has progressively worsened over the past 10 years. She underwent subtalar joint arthroereisis implant placement and spring ligament repair in 2018 at a different facility with a different provider. She reports she injured the surgical limb, and she has continued pain and progressive deformity. She is unable to bear weight and has difficulty completing her activities of daily living. She has failed conservative care including orthotics, exercises, stretching, strengthening, pain medications, custom ankle foot orthotic brace, job discontinuation, formal physical therapy, injections, spine stimulator. She has progressive flattening of the foot that is reducible and quite flexible. Her foot posture demonstrates a valgus hindfoot and her primary planal dominance is in the sagittal plane. She has pain to palpation to the sinus tarsi and with passive inversion and eversion of the hindfoot. Her neurovascular status is intact. Her preoperative standing ankle and foot x-rays demonstrate arthroereisis device that does appear to be backing out. There are no acute fractures or dislocations. She also has a slight anterior displacement with the cyma line and diminished posterior facet of the subtalar joint. Her calcaneal inclination angle is also slightly decreased. Her preoperative diagnostic data was also reviewed including labs, EKG, and chest xray. The preoperative indications, planned procedure, possible benefits, risks, complications, and anticipated healing time and management were discussed in detail with patient. She understands and elects to proceed with surgery at this time. No guarantees were made. She understands risks and complications may include but are not limited to the following: pain, swelling, scarring, non or delayed healing, over or under correction, chronic pain syndrome, hardware failure, need for further surgery, allergic reactions, blood clots, loss of limb, function, life. I answered all of her questions. She understands COVID- 19 is a current situation and her pain is preventing her from performing her daily activities. She understands the inherent risks with the virus being present in the community and understands significant precautions are being taken to prevent communicable spread during her hospital session. She therefore elects to proceed forward with the procedure at this time. The informed surgical consent and surgical limbs were signed. Procedure in detail: The patient was transferred to the operating room via cart and placed on the operating table in the supine position. Final verification the patient, surgery, and limb designation was performed via the time out procedure. IV antibiotics were administered preoperative as ordered. A bump was placed to allow good exposure to the surgical foot. Well-padded pneumatic left thigh tourniquet was placed. General anesthesia was initiated by the anesthesia team. Local anesthetic was administered preoperative as noted by the podiatry team. The left lower extremity was prepped and draped in the usual aseptic manner. Next, an Esmarch bandage was used to exsanguinate the left lower extremity and the tourniquet was inflated at this time. Surgery proceeded in the following manner: Attention was first directed over the sinus tarsi just distally at the location of the implant. Proper location was confirmed with x-ray prior to making incision. The implant was displaced anteriorly and dorsally. The incision was made through the skin was approximately 1/2 cm in length. Blunt dissection was performed down to the deeper capsular layer to identify, protect, and retract all neurovascular structures at this point and throughout the remainder of surgery. Under intraoperative fluoroscopy guidance, the arthroereisis device was identified and removed in total without difficulty. This wound was copiously irrigated with saline. Next, attention was directed to the lateral aspect of the hindfoot in which a curvilinear incision was made to gain exposure to the subtalar joint. This incision was made through the skin and extended from just distal to the lateral malleolus to the base of the fourth metatarsal. Blunt dissection was performed down the peroneal sheath and this was incised and the peroneal tendons were reflected inferiorly. The calcaneofibular ligament was incised and a subtalar joint posterior facet arthrotomy was performed. The subtalar joint was exposed. The posterior facet of the subtalar joint was denuded with instrumentation and the subchondral bone was prepared with fish scaling and drilling to provoke bleeding past the subchondral plate to optimize healing. Augment encriched bone graft with growth facters was applied to the arthrodesis site. Next, internal fixation was applied across the subtalar joint and good compression was achieved with 2 cannulated screws. Proper AO fixation technique was utilized with the placement of two screws. Temporary fixation was removed and solid fixation was achieved with adequate reduction of the deformities. No acute injuries were noted. This was confirmed with intraoperative flouroscopy. Next the foot wound is evaluated for the need of additional procedures. Subtalar joint has been placed in a neutral fixed position since the arthrodesis and there is no apparent forefoot varus or forefoot supinatus was noted. Her midfoot flexibility and sagittal plane collapse continues and the decision to perform a metatarsal cuneiform arthrodesis is needed at this time. Attention was next directed at the medial aspect of the first metatarsal cun eiform articulation area in which a medial incision was made through the skin. Blunt dissection was performed down to the interface between the abductor hallucis muscle belly and plantar first metatarsal. Care was taken to identify, protect, and retract all neurovascular structures at this point and throughout the remainder of surgery. The desired interface was identified and carefully dissected. The first metatarsocuneiform articulation was identified clinically and confirmed with intraoperative fluoroscopy. An arthrotomy was peformed. A 15 blade, osteotomes, and curettes were used to denude the articular surface down to bleeding healthy subchondral bone in the remaining bone surfaces were mobilized to allow for correction. The arthrodesis site was further prepared with fish scaling and subchondral drilling with a 1.7 mm drill. Augment bone graft with santana factors were applied to the arthrodesis site. A plantar Arthrex Lapidus plate was fashioned and temporary held in place with wires and BB taks. The tibialis anterior tendon was left intact. The plate was secured distally prior to compression screw application. Care was taken to remove all temporary fixation while the compression was applied. Proper deformity correction placement was confirmed clinically and radiographically. Lastly, the plate was secured proximally and the unit was clinically and radiographically stressed and appeared to be stable as one solid unit with maintained deformity correction. The reduction was maintained and all screws and hardware placement maintained the proper placement and desired trajectory. After procedure: The patient tolerated the procedure and anesthesia well. She was transported to the PACU with vital signs stable and vascular status intact to the left lower e xtremities. Postoperative x-rays were obtained and reviewed as noted previously. She was advised to ice and elevate for pain and inflammation management. She was advised to maintain strict nonweightbearing status to the left lower extremity and to use crutches for assistance. She was advised to keep his dressing clean, dry, and intact. She will be monitored under observation status until tomorrow to assist with pain control. She will resume DVT prophylaxis medication tomorrow. I will follow her closely in house. Medical management for her aforementioned comorbidities were discussed with the hospitalist physician and a consultation was requested. Physical therapy will also help her tomorrow in regards to gait training to maintain a nonweightbearing status to the left lower extremity. She will hold all antirheumatic medication at this time. Additional postoperative orders were entered electronically. Lakeisha Torres DPM, [facility] [place] [phone] Grafts/Implants Used: augment bone graft - Complications none - Admit VTE Documentation VTE Present on Admission: No VTE Mechan Device Prophylaxis: SCD's VTE Pharm Prophylaxis ordered?: Yes
--- NOTE | 2020-05-12 13:22 | RAD_ITS ---
STUDY: X-RAY - LEFT FOOT CLINICAL: Female, 54 years old. Left ankle and foot post op TECHNIQUE: 3 view(s) of the foot. COMPARISON: None. FINDINGS: 2 screws are seen within the calcaneus and talus for arthrodesis of the talocalcaneal joint. Arthrodesis of the first cuneiform first metatarsal joint with screw and sideplate fixation device. Normal metatarsi. Normal metatarsophalangeal joint of the great toe. Normal tibial and fibular sesamoid bones. Normal interphalangeal joint of the great toe. Normal phalanges of the great toe. Normal second through fifth metatarsophalangeal joints. Normal interphalangeal joints and phalanges of the lesser toes. Postoperative soft tissue swelling. RAD/Foot min 3 Views IMPRESSION: Status post arthrodesis of the first cuneiform metatarsal joint and the talocalcaneal joint. Electronically Signed: Anshul Sams, at 14:20 EDT , Service support ,
--- NOTE | 2020-05-12 13:35 | PCM.HP.STD ---
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 Qualifiers: Encounter type: subsequent encounter Qualified Code(s): T84.213D - Breakdown (mechanical) of internal fixation device of bones of foot and toes, subsequent encounter (2) Sinus tarsitis of left foot Status: Chronic (3) Pes planus of left foot Status: Chronic (4) Foot pain, left Status: Chronic History of Present Illness Date of Admission: 05/12/20 Chief Complaint: Status post left foot with pain The patient is a 54 year old F with significant past medical history of sleep apnea, depression, asthma, psoriatic arthritis, insomnia, irritable bowel syndrome continues to have left foot pain. She did have a flatfoot reconstruction surgery with an arthroresis device and repair of the spring ligaments performed by different surgeon in May 2018. She has had ongoing pain and continued collapse of the foot. Implant loosening is suspected and her deformity has recurred. She underwent surgical correction today to remove the hardware and improve her foot position and function. She is admitted postoperative for pain control. Past Medical History Past Medical History (Chronic Problems): Chronic Problems (Last Reviewed 02/09/19 @ 07:[address] 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 Rick Whiting MD) Lipoma of back (Chronic) D17.1 8 cm lipoma upper back/posterior neck Postoperative seroma of subcutaneous tissue after dermatologic procedure (Acute) L76.33 Arthritis M19.90 Asthma J45.909 BREAST LUMP OR CYST Bloating R14.0 Carpal tunnel syndrome G56.00 Cataract H26.9 Depression F32.9 GASTROINTESTIONAL PROBLEMS Hearing problem H91.90 History of migraine headaches Z86.69 Hives L50.9 IBS (irritable bowel syndrome) LIPOMA UPPER BACK/POSTERIOR NECK Leg weakness R29.898 Mass in neck R22.1 OAB (overactive bladder) N32.81 Osteoarthritis M19.90 Pneumonia J18.9 Polycystic ovary E28.2 Psoriasis L40.9 Recurrent infections B99.9 SPINAL STENOSIS - MULTIPLE BACK ISSUES Seasonal allergies J30.2 Vision problems H54.7 Allergies nabumetone Allergy (Verified 05/12/20 08:01) Hives thimerosal Allergy (Verified 05/12/20 08:01) Other PER ALLERGY TESTING naproxen [From Naprosyn] Adverse Reaction (Verified 05/12/20 08:01) Other oxycodone HCl [From Percocet] Adverse Reaction (Verified 05/12/20 08:01) Other birds Allergy (Uncoded 05/12/20 08:01) Other dust Allergy (Uncoded 05/12/20 08:01) PT UNSURE OF REACTION other molds Allergy (Uncoded 05/12/20 08:01) Other seasonal Allergy (Uncoded 05/12/20 08:01) Other COWS Adverse Reaction (Uncoded 05/12/20 08:01) Other Home Medications: Ambulatory Orders Medication Instructions Recorded Albuterol Aerosols [Ventolin 2.5 mg INHALATION Q6H PRN PRN 09/22/17 Aerosols] Baclofen [Lioresal] 10 mg PO DAILY 09/22/17 Diclofenac Sodium 100 gm TP 4X/DAY 09/22/17 Econazole [Spectazole] 1 applic TOPICAL DAILY 09/22/17 Fluoxetine [Prozac] 60 mg PO DAILY 09/22/17 Linaclotide [Linzess] 290 mcg PO DAILY 09/22/17 Pregabalin [Lyrica] 75 mg PO BID 09/22/17 buPROPion SR [Wellbutrin SR (150mg 150 mg PO BID 09/22/17 tablets)] Docusate Sodium [Colace] 100 mg PO BID cap 11/29/17 Lactobacillus Combo No.11 1 ea PO DAILY #60 cap.sprink 11/29/17 [Probiotic] guselkumab 100 mg/mL subcutaneous 100 mg SC Q8W 07/23/18 syringe omega-3 fatty acids 1,000 mg 1,000 mg PO DAILY 11/30/18 capsule hydrocodone 5 mg-acetaminophen 325 2 tab PO Q4H PRN 12/03/18 mg tablet Budesonide/Formoterol 160/4.5 2 puff INHALATION BID 02/04/19 [Symbicort 160/4.5 Mcg Inhaler (SP)] Folic Acid 0.8 mg PO DAILY 02/04/19 Methotrexate Sodium [Methotrexate] 20 mg PO TU 02/04/19 Prednisone 10 mg PO PRN PRN 02/04/19 Omeprazole [Prilosec] 20 mg PO QHS 12/02/19 Fesoterodine Fumarate [Toviaz] 4 mg PO DAILY 05/04/20 Mirtazapine 45 mg PO QHS 05/04/20 Multivitamin with Minerals 1 ea PO DAILY 05/04/20 [Multiple Vitamin] Potassium Chloride 10 meq PO DAILY 05/04/20 Sumatriptan Succinate [Imitrex] 25 mg PO DAILY PRN 05/04/20 Topiramate 100 mg PO QHS 05/04/20 Surgical History: Surgical History (Last Reviewed 02/09/19 @ 07:[address] Rick Whiting MD) ADENOIDS AND TONSILS 1975 CATARACT L & R, TORIC LENS REPLACEMENT 2016 COMPLETE HYSTERECTOMY WITH BSO 2015 Deviated septum J34.2 EXCISION 8 CM PAINFUL SOFT TISSUE MASS UPPER BACK/POSTERIOR NECK - 09/23/17 H/O bilateral breast reduction surgery Onset Date: ~2012 Z98.890 H/O wisdom tooth extraction K08.409 RADIOFRQUENSY ABLATION 2016 Smoking Status: Never smoker Tobacco Use: Non-smoker Review of Systems Unable to obtain accurate/complete ROS d/t: post op VTE Information - Inpt Only VTE Present on Admission: No VTE Mechan Device Prophylaxis: SCD's VTE Pharm Prophylaxis ordered?: Yes Patient Problems: Active and Suspected Problems (Last Reviewed 02/09/19 @ 07:[address] Rick Whiting MD) Psoriasis (Acute) Insomnia (Acute) Anxiety (Acute) Depression (Acute) Sleep apnea (Acute) - Physical Exam Vitals/I&O's: Vital Signs Temp Pulse Resp BP Pulse Ox 98.5 F 69 16 135/71 H 98 05/12/20 13:03 05/12/20 13:30 05/12/20 13:30 05/12/20 13:30 05/12/20 13:30 Oxygen Delivery Method Room Air Weight: 67.1 kg Body Mass Index (BMI) 23.8 Intake and Output for Last 24 Hours 05/10/20 05/11/20 05/12/20 23:59 23:59 23:59 Intake Total 1110 / 1110 Balance 1110 / 1110 General: Alert, Oriented x3, Cooperative HEENT: Atraumatic, Normocephalic Oral: Moist Mucosa Lungs: Clear to auscultation, No wheeze Cardiovascular: Regular rate, Regular Rhythm Extremities: No cyanosis, No edema, Capillary Refill Less than 3 Seconds, Peripheral Pulses Normal Skin: Incision - four foot incisions are intact and the dressing is clean and dry Musculoskeletal: No Tenderness to Palpation of Joints or Extremities, - - rectus left lower extremity with posterior mold splint intact Lymphatic: - - No cervical or supraclavicular adenopathy Neurological: Sensory exam intact to light touch and pain Psych/Mental Status: Normal Affect, Appropriate Current Medications Hydrocodone Bitart/Acetaminophen ([place] 5mg-325mg) 1 - 2 tablet PO Q6H PRN PRN PRN Reason: Pain Score 1-5/10 Hydromorphone HCl (Dilaudid Inj) 2 mg IV Q3H PRN PRN PRN Reason: Pain Score 6-10/10 Lactated Ringer's () 1,000 mls @ 100 mls/hr IV .Q10H CIRO Last Admin: 05/12/20 13:16 Dose: 100 mls/hr Documented by: Ondansetron HCl (Zofran) 4 mg IV Q8H PRN PRN PRN Reason: Nausea Assessment/Plan All Active Problems (Last Reviewed 02/09/19 @ 07:[address] Rick Whiting MD) Psoriasis (Acute) Insomnia (Acute) Anxiety (Acute) Depression (Acute) Sleep apnea (Acute) GERD (gastroesophageal reflux disease) (Acute) Non-healing surgical wound (Acute) Complication, postoperative infection (Acute) Open wound of back wall of thorax without penetration into thoracic cavity (Acute) Postoperative hematoma of subcutaneous tissue following dermatologic procedure (Acute) Postoperative seroma of subcutaneous tissue after dermatologic procedure (Acute) s/p implant removal (arthroresis), subtalar joint arthrodesis with internal fixation, and first metatarsal cuneiform arthrodesis with internal fixation for treatment of painful hardware and progressive pes planus deformity Chronic pain Other comorbidities (sleep apnea on bipap, asthma, psoriasis, depression, anxiety, insomnia) She was admitted for postoperative pain control given her extensive chronic pain history. She was given a postoperative regional block for the lower extremity. She is also placed on IV Dilaudid and oral [place] for pain control. She will be monitored as her regional block wears off. She will also resume use of her spinal cord stimulator this evening. She is advised to maintain a strict nonweightbearing status to her left lower extremity with use of a walker or a knee roller. She will work with physical therapy tomorrow to confirm safe transfer home. DVT prophylaxis will also be initiated tomorrow. SCDs were ordered at this time. Hospitalist service has been consulted for medical management and input is greatly appreciated. This case was reviewed with Dr. Onofre. She brought her BiPAP machine for use during her hospital stay. She is holding all of her antirheumatic medication at this time and this will be resumed in the outpatient setting after confirmation of incision and osseous arthrodesis site healing. Please do not hesitate to call if you have any questions. Code status: full Lakeisha Torres DPM, [facility] [phone]
--- NOTE | 2020-05-12 14:00 | RAD_ITS ---
STUDY: X-RAY - LEFT ANKLE REASON FOR EXAM: Female, 54 years old. Left ankle and foot post op TECHNIQUE: AP and lateral view(s) of the ankle. COMPARISON: None. FINDINGS: Normal visualized distal tibia and fibula. Normal medial and lateral malleoli. Normal tibiotalar articulation and ankle mortise. Normal visualized talus and calcaneus. Status post talocalcaneal arthrodesis and first cuneiform metatarsal arthrodesis. Postoperative soft tissue changes. RAD/Ankle 2 Views IMPRESSION: Status post talocalcaneal arthrodesis and first cuneiform metatarsal arthrodesis. Electronically Signed: Anshul Sams, at 14:21 EDT , Service support ,
--- NOTE | 2020-05-12 15:32 | PCM.PN.HOSP ---
<Kvng Rivera - Last Filed: 05/12/20 15:32> Patient Problems: Active and Suspected Problems (Last Reviewed 02/09/19 @ 07:[address] Rick Whiting MD) Psoriasis (Acute) Insomnia (Acute) Anxiety (Acute) Depression (Acute) Sleep apnea (Acute) Reason for Visit: Consult for medical management: Subjective: This is a 54 yo female with pmhx of psoriatic arthritis pt of Dr. Torres, severe GERD for which she had a Jamil en Y procedure, anxiety/depression/ptsd, IBS, overactive bladder, DDD, chronic back pain with radiculopathy, spinal stimulator, pt of Dr. Ibrahim, migraines, flat footed and bunion foot deformities with prior left foot reconstruction, who today underwent reconstructive left foot surgery as she had complications from her prior surgery. She currently is doing well post op with no complaints. She has no pain as she underwent a nerve block. She has no fevers, chills, nausea, vomiting, abd pain, cough/sob, dizziness/LH. Vitals/I&O's: Vital Signs Temp Pulse Resp BP Pulse Ox 98.1 F 75 18 135/59 H 97 05/12/20 14:51 05/12/20 14:51 05/12/20 14:51 05/12/20 14:51 05/12/20 14:51 Oxygen Delivery Method Room Air Weight: 147 lb 14.883 oz Body Mass Index (BMI) 23.8 Intake and Output for Last 24 Hours 05/10/20 05/11/20 05/12/20 23:59 23:59 23:59 Intake Total 2109 Balance 2109 General: Alert, Oriented x3, Cooperative HEENT: Atraumatic, PERRLA, EOMI, Normocephalic Neck: Supple, No JVD, Negative Carotid Bruits Lungs: Clear to auscultation, Normal air movement Cardiovascular: Regular rate, No murmurs Abdomen: Bowel Sounds Present, Soft, Non Tender Extremities: No edema, Capillary Refill Less than 3 Seconds Skin: No rashes, No breakdown Musculoskeletal: No Tenderness to Palpation of Joints or Extremities, - - Post op left foot in post surgical dressing. Neurological: Cranial nerves II-XII grossly intact Psych/Mental Status: Flat Affect, Alert and oriented to time, place, person, mood and affect Current Medications Hydrocodone Bitart/Acetaminophen ([place] 5mg-325mg) 1 - 2 tablet PO Q6H PRN PRN PRN Reason: Pain Score 1-5/10 Docusate Sodium (Colace) 200 mg PO BID PRN PRN PRN Reason: Constipation Hydromorphone HCl (Dilaudid Inj) 1 mg IV Q3H PRN PRN PRN Reason: Pain Score 6-10/10 Lactated Ringer's () 1,000 mls @ 100 mls/hr IV .Q10H [facility] Last Admin: 05/12/20 14:15 Dose: 100 mls/hr Documented by: Ondansetron HCl (Zofran) 4 mg IV Q8H PRN PRN PRN Reason: Nausea Sodium Chloride () 10 - 40 ml IV UD PRN PRN Reason: SALINE FLUSH STROKE Vital Signs/Narrative: Vital Signs Temp Pulse Resp BP Pulse Ox 05/12/20 14:51 98.1 F 75 18 135/59 H 97 05/12/20 14:18 98.3 F 74 16 124/68 H 99 05/12/20 14:15 70 16 132/62 H 100 05/12/20 14:00 67 16 132/62 H 100 05/12/20 13:45 71 16 137/84 H 100 05/12/20 13:30 69 16 135/71 H 98 05/12/20 13:15 79 16 126/77 H 98 05/12/20 13:03 98.5 F 80 16 117/99 H 99 Medical Necessity - Tobacco Use Smoking Status: Never smoker Tobacco Use: Non-smoker Assessment/Plan All Active Problems (Last Reviewed 02/09/19 @ 07:[address] Rick Whiting MD) Psoriasis (Acute) Insomnia (Acute) Anxiety (Acute) Depression (Acute) Sleep apnea (Acute) GERD (gastroesophageal reflux disease) (Acute) Non-healing surgical wound (Acute) Complication, postoperative infection (Acute) Open wound of back wall of thorax without penetration into thoracic cavity (Acute) Postoperative hematoma of subcutaneous tissue following dermatologic procedure (Acute) Postoperative seroma of subcutaneous tissue after dermatologic procedure (Acute) 1. Left foot s/p reconstructive surgery / revision per Dr. Torres POD#0 - post nerve block still with no pain. Pt with no post surgical complaints at this time. Agree check AM labs. Home meds reconciled. At risk of infectino due to immunocompromised state due to psoriatic arthritis and treatment including tremfya, prednisone, and MTX. Covid Neg. 2. Psoriatic arthritis - Tremfya to be held due to risk of infection until cleared by her order schedule clerk. Hold MTX, prednisone for now. Continue folate. 3. Chronic back pain due to DDD with radiculopathy - pt of Dr. Ibrahim - I counselled the pt on the importance of close communication with Dr. Ibrahim regarding any pain medications that she will need as a result of surgery so that she does not violate her pain contract. She has a spinal stimulator. Her home lyrica, baclofen are continued. 4. Anx/depression/PTSD - ok to continue home meds. 5. Asthma - no exacerbation - lungs clear. continue budesonide and prn areosols. 6. IBS - resume linzess at wi. 7. Severe Gerd - underwent Jamil en Y for this in past. Continue PPI. 8. Overactive bladder - continue toviaz at wi. 9. Hx migraines - topamax, imitrex prn Thank you for the opportunity to participate in the care of this patient. This patient was seen by Kvng Rivera PA-C under the supervision of Dr. Onofre <Luis Fernando Onofre - Last Filed: 05/12/20 16:00> Vitals/I&O's: Vital Signs Temp Pulse Resp BP Pulse Ox 36.7 C 75 18 135/59 H 97 05/12/20 14:51 05/12/20 14:51 05/12/20 14:51 05/12/20 14:51 05/12/20 14:51 Oxygen Delivery Method Room Air Weight: 67.1 kg Body Mass Index (BMI) 23.8 Intake and Output for Last 24 Hours 05/10/20 05/11/20 05/12/20 23:59 23:59 23:59 Intake Total 2109 Balance 2109 General: Alert, Cooperative HEENT: Atraumatic, Normocephalic Lungs: Clear to auscultation, Normal air movement, No rhonchi, No wheeze Cardiovascular: Regular rate, Regular Rhythm, Normal S1, Normal S2, No murmurs Abdomen: Bowel Sounds Present, Soft, Non Tender, Non-Distended Extremities: No edema, No Calf Tenderness Skin: No rashes, No breakdown Musculoskeletal: No Tenderness to Palpation of Joints or Extremities, - Current Medications Hydrocodone Bitart/Acetaminophen ([place] 5mg-325mg) 1 - 2 tablet PO Q6H PRN PRN PRN Reason: Pain Score 1-5/10 Albuterol Sulfate (Ventolin Aerosols) 2.5 mg INHALATION Q6H PRN PRN PRN Reason: Asthma Baclofen (Lioresal) 10 mg PO DAILY [facility] Bupropion HCl (Wellbutrin Sr (150mg Tablets)) 150 mg PO BID [facility] Docusate Sodium (Colace) 200 mg PO BID PRN PRN PRN Reason: Constipation Docusate Sodium (Colace) 100 mg PO BID [facility] Fluoxetine HCl (Prozac) 60 mg PO DAILY [facility] Hydromorphone HCl (Dilaudid Inj) 1 mg IV Q3H PRN PRN PRN Reason: Pain Score 6-10/10 Lactated Ringer's () 1,000 mls @ 100 mls/hr IV .Q10H [facility] Last Admin: 05/12/20 14:15 Dose: 100 mls/hr Documented by: Non-Formulary Medication (Potassium Chloride) 10 meq PO DAILY [facility] Non-Formulary Medication (Omeprazole) 20 mg PO QHS [facility] Non-Formulary Medication (Diclofenac Sodium) 100 gm TP 4X/DAY [facility] Non-Formulary Medication (Mirtazapine) 45 mg PO QHS [facility] Non-Formulary Medication (Sumatriptan Succinate [Imitrex]) 25 mg PO DAILY PRN PRN Reason: HEADACHE Non-Formulary Medication (Budesonide/Formoterol 160/4.5) 2 puff inhalation BID [facility] Non-Formulary Medication (Folic Acid) 0.8 mg PO DAILY [facility] Ondansetron HCl (Zofran) 4 mg IV Q8H PRN PRN PRN Reason: Nausea Pregabalin (Lyrica) 75 mg PO BID [facility] Sodium Chloride () 10 - 40 ml IV UD PRN PRN Reason: SALINE FLUSH Topiramate (Topamax) 100 mg PO QHS [facility] STROKE Vital Signs/Narrative: Vital Signs Temp Pulse Resp BP Pulse Ox 05/12/20 14:51 36.7 C 75 18 135/59 H 97 05/12/20 14:18 36.8 C 74 16 124/68 H 99 05/12/20 14:15 70 16 132/62 H 100 05/12/20 14:00 67 16 132/62 H 100 05/12/20 13:45 71 16 137/84 H 100 05/12/20 13:30 69 16 135/71 H 98 05/12/20 13:15 79 16 126/77 H 98 05/12/20 13:03 36.9 C 80 16 117/99 H 99 Assessment/Plan Patient seen and examined independently. Data reviewed. I agree with the above note by the physician product development assistant. 1. Status post reconstructive surgery to the left foot. Management per podiatry. 2. Psoriatic arthritis: guselkumab, TMX and prednisone held to mitigate infection risk for now. 3. Chronic pain: has spine stimulator. 4. VTE prophylaxis: high risk. start enoxaparin. Inpatient E&M: 36808 Subs Hosp L2
[2020-05-12] MEDS: Budesonide Respules 0.5 MG/2 ML AMPUL.NEB. INHALATION (19:15)
[2020-05-12] MEDS: Albuterol 2.5 MG/3 ML VIAL.NEB. INHALATION (19:15)
[2020-05-12] MEDS: Rizatriptan Benzoate 5 MG Tablet PO (20:53)
[2020-05-12] MEDS: Pantoprazole Sodium 20 MG Tablet PO (20:53)
[2020-05-12] MEDS: Docusate Sodium 100 MG Capsule PO (20:53)
[2020-05-12] MEDS: buPROPion (SR) 150 MG Tablet.SA PO (20:53)
[2020-05-12] MEDS: Topiramate 100 MG Tablet PO (20:54)
[2020-05-12] MEDS: Pregabalin 75 MG Capsule PO (21:11)
[2020-05-12] MEDS: Mirtazapine 15 MG Tablet 45 MG PO (23:00)
[2020-05-13 02:36] VITALS: BP 112/76; PULSE 76; RESP 17; TEMP 36.8; O2SAT 96
[2020-05-13] MEDS: HYDROcodone Bitartrate/Apap 5/325 Tablet PO ×2 (03:54→10:25)
[2020-05-13] MEDS: Enoxaparin 40 MG/0.4 ML Syringe SC (06:05)
[2020-05-13] MEDS: 0.9% Saline Lock 10 ML Syringe IV ×3 (06:10→15:18)
[2020-05-13] MEDS: HYDROmorphone 1 MG/ML Syringe IV ×2 (06:10→15:18)
[2020-05-13 06:19] VITALS: BP 144/90; PULSE 81; RESP 16; TEMP 36.7; O2SAT 95
[2020-05-13 07:07] VITALS: PULSE 76; RESP 16; O2SAT 100
[2020-05-13] MEDS: Albuterol 2.5 MG/3 ML VIAL.NEB. INHALATION ×2 (07:07→13:41)
[2020-05-13] MEDS: Budesonide Respules 0.5 MG/2 ML AMPUL.NEB. INHALATION (07:07)
[2020-05-13 08:01] LABS: Hematocrit 34.8 % (37-47); Hemoglobin 10.9 g/dL (12.0-15.0); Mean Corp Hgb Conc 31.3 g/dL (32-36); Mean Corpuscular Hgb 32.6 pg (27.0-32.0); Mean Corpuscular Volume 104.2 fL (81-99); Mean Platelet Vol. 10.5 fl (6.2-12.0); Platelet Count 199 K/mm3 (150-450); RBC Distribution Width CV 13.9 % (11.6-14.6); RBC Distribution Width SD 52.8 fl (35.1-43.9); Red Blood Count 3.34 M/mm3 (4.2-5.4); White Blood Count 6.3 K/mm3 (4.4-11.0)
[2020-05-13 08:26] LABS: ALB/GLOB Ratio 1.1 RATIO (0.9-2.4); AST(SGOT) 15 U/L (15-37); Alanine Aminotransfer ALT/SGPT 37 U/L (13-56); Albumin, Serum 3.2 g/dL (3.2-5.0); Alkaline Phosphatase 80 U/L (45-117); Anion Gap 7 (5-15); BUN 13 mg/dL (7-18); BUN/Creat Ratio 17.2 RATIO (10-20); Calcium,Total 8.2 mg/dL (8.5-10.1); Chloride 111 mmol/L (98-107); Creatinine, Serum 0.75 mg/dL (0.55-1.02); EST Glomerular Filtration Rate 85 mL/min (>60); Est Glom Filt Rate - Afr Amer 102 mL/min (>60); Estimated Creatinine Clearance 79.34 ml/min; Globulin 2.8 g/dL (2.2-4.2); Glucose 82 mg/dL (74-106); Potassium 3.8 mmol/L (3.5-5.1); Sodium Level 146 mmol/L (136-145)
--- NOTE | 2020-05-13 09:09 | PCM.PROGNOTE ---
Patient Problems: Active and Suspected Problems (Last Reviewed 02/09/19 @ 07:[address] Rick Whiting MD) Psoriasis (Acute) Insomnia (Acute) Anxiety (Acute) Depression (Acute) Sleep apnea (Acute) Subjective: This 54 year old pleasant female was seen bedside this morning s/p implant removal (arthroresis), subtalar joint arthrodesis with internal fixation, and first metatarsal cuneiform arthrodesis with internal fixation for treatment of painful hardware and progressive pes planus deformity performed yesterday. She denies fever, chills, nausea, vomiting, shortness of breath, chest pain, urinary retention, calf pain or constipation. She denies having a bowel movement since surgery. Her pain is rated as at least 8/10 this morning. Her pain block is starting to wear off and her feeling is starting to come back to the toes and part of the foot. - Physical Exam Vitals/I&O's: Vital Signs Temp Pulse Resp BP Pulse Ox 98.1 F 76 16 144/90 H 100 05/13/20 06:19 05/13/20 07:07 05/13/20 07:07 05/13/20 06:19 05/13/20 07:07 Oxygen Delivery Method Room Air Weight: 67.1 kg Body Mass Index (BMI) 23.8 Intake and Output for Last 24 Hours 05/11/20 05/12/20 05/13/20 23:59 23:59 23:59 Intake Total 3425 / 3425 1011.25 / 1011.25 Output Total 900 / 900 1300 / 1300 Balance 2525 / 2525 -288.75 / -288.75 General: Alert, Oriented x3, Cooperative HEENT: Atraumatic Extremities: No cyanosis, No edema, Capillary Refill Less than 3 Seconds, No Calf Tenderness Skin: - - dressing and splint to left lower extremity are clean and intact. no strikethrough or adjacent erythema Musculoskeletal: No Tenderness to Palpation of Joints or Extremities, - - rectus left lower extremity Neurological: - - epicritic sensation is intact to left digits via light touch Psych/Mental Status: Normal Affect, Appropriate Laboratory Results 05/13/20 06:50: WBC 6.3, RBC 3.34 L, Hgb 10.9 L, Hct 34.8 L, MCV 104.2 H, MCH 32.6 H, MCHC 31.3 L, RDW Std Deviation 52.8 H, RDW Coeff of Marquise 13.9, Plt Count 199, MPV 10.5 05/13/20 06:50: Sodium 146 H, Potassium 3.8, Chloride 111 H, Carbon Dioxide 28.0, Anion Gap 7, BUN 13, Creatinine 0.75, Estim Creat Clear Calc 79.34, Est GFR (MDRD) Af Amer 102, Est GFR (MDRD) Non-Af 85, BUN/Creatinine Ratio 17.2, Glucose 82, Calcium 8.2 L, Total Bilirubin 0.50, AST 15, ALT 37, Alkaline Phosphatase 80, Total Protein 6.0 L, Albumin 3.2, Globulin 2.8, Albumin/Globulin Ratio 1.1 Current Medications Hydrocodone Bitart/Acetaminophen ([place] 5mg-325mg) 1 - 2 tablet PO Q6H PRN PRN PRN Reason: Pain Score 1-5/10 Last Admin: 05/13/20 03:54 Dose: 1 tablet Documented by: Albuterol Sulfate (Ventolin Aerosols) 2.5 mg INHALATION Q6H PRN PRN PRN Reason: Asthma Albuterol Sulfate (Ventolin Aerosols) 2.5 mg INHALATION Q6HWA.RT [facility] Last Admin: 05/13/20 07:07 Dose: 2.5 mg Documented by: Baclofen (Lioresal) 10 mg PO DAILY@2200 [facility] Budesonide (Pulmicort Aerosol) 0.5 mg INHALATION Q12H.[facility] Last Admin: 05/13/20 07:07 Dose: 0.5 mg Documented by: Bupropion HCl (Wellbutrin Sr (150mg Tablets)) 150 mg PO BID [facility] Last Admin: 05/12/20 20:53 Dose: 150 mg Documented by: Docusate Sodium (Colace) 200 mg PO BID PRN PRN PRN Reason: Constipation Docusate Sodium (Colace) 100 mg PO BID [facility] Last Admin: 05/12/20 20:53 Dose: 100 mg Documented by: Enoxaparin Sodium (Lovenox) 40 mg SC DAILY@0600 [facility] Last Admin: 05/13/20 06:05 Dose: 40 mg Documented by: Fluoxetine HCl (Prozac) 60 mg PO DAILY [facility] Folic Acid (Folic Acid) 1 mg PO DAILY@0800 [facility] Hydromorphone HCl (Dilaudid Inj) 1 mg IV Q3H PRN PRN PRN Reason: Pain Score 6-10/10 Last Admin: 05/13/20 06:10 Dose: 1 mg Documented by: Lactated Ringer's () 1,000 mls @ 100 mls/hr IV .Q10H [facility] Last Infusion: 05/13/20 03:45 Dose: 0 mls/hr Documented by: Mirtazapine (Remeron) 45 mg PO QHS [facility] Last Admin: 05/12/20 23:00 Dose: 45 mg Documented by: Non-Formulary Medication (Diclofenac Sodium) 100 gm TP 4X/DAY [facility] Ondansetron HCl (Zofran) 4 mg IV Q8H PRN PRN PRN Reason: Nausea Pantoprazole Sodium (Protonix) 20 mg PO QHS [facility] Last Admin: 05/12/20 20:53 Dose: 20 mg Documented by: Potassium Chloride (K-Dur) 10 meq PO DAILYCM [facility] Pregabalin (Lyrica) 75 mg PO BID [facility] Last Admin: 05/12/20 21:11 Dose: 75 mg Documented by: Rizatriptan Benzoate (Maxalt) 5 mg PO DAILY PRN PRN Reason: HEADACHE Last Admin: 05/12/20 20:53 Dose: 5 mg Documented by: Sodium Chloride () 10 - 40 ml IV UD PRN PRN Reason: SALINE FLUSH Last Admin: 05/13/20 06:10 Dose: 10 ml Documented by: Topiramate (Topamax) 100 mg PO QHS [facility] Last Admin: 05/12/20 20:54 Dose: 100 mg Documented by: Medical Necessity - Tobacco Use Smoking Status: Never smoker Tobacco Use: Non-smoker Assessment/Plan All Active Problems (Last Reviewed 02/09/19 @ 07:[address] Rick Whiting MD) Psoriasis (Acute) Insomnia (Acute) Anxiety (Acute) Depression (Acute) Sleep apnea (Acute) GERD (gastroesophageal reflux disease) (Acute) Non-healing surgical wound (Acute) Complication, postoperative infection (Acute) Open wound of back wall of thorax without penetration into thoracic cavity (Acute) Postoperative hematoma of subcutaneous tissue following dermatologic procedure (Acute) Postoperative seroma of subcutaneous tissue after dermatologic procedure (Acute) s/p implant removal (arthroresis), subtalar joint arthrodesis with internal fixation, and first metatarsal cuneiform arthrodesis with internal fixation for treatment of painful hardware and progressive pes planus deformity (DOS 05/12/2020) Chronic pain Other comorbidities (sleep apnea on bipap, asthma, psoriasis, depression, anxiety, insomnia) She was admitted for postoperative pain control given her extensive chronic pain history. Her vitals are stable and she remains afebrile. She was given a postoperative regional block for the lower extremity and this is starting to wear off. She continues on IV Dilaudid and oral [place] for pain control. She will be monitored as her regional block wears off. She has also resumed use of her spinal cord stimulator. IV Toradol will be ordered this morning. D/c pain medication will include norco which will be sent to her preferred pharmacy, [facility] in [place]. Pain control prior to d/c home will be confirmed this afternoon. She is advised to maintain a strict nonweightbearing status to her left lower extremity with use of a walker or a knee roller. She will work with physical therapy today. DVT prophylaxis will also be initiated. SCDs were ordered at this time. DVT prophylaxis at home will include lovenox. She is ok with giving herself an injection and this will be sent to her pharmacy as well. Hospitalist service has been consulted for medical management and input is greatly appreciated. She will hold Tremfya and prednisone at this time. Ok to continue folate. To continue incentive spirometer. D/c plan was discussed with physician assistant dean of students. D/c home today if pain remains controlled and she does well with therapy. I will touch base with her later this afternoon. Please do not hesitate to call if you have any questions. Lakeisha Torres DPM, FACF[facility] [phone]
[2020-05-13 10:12] VITALS: BP 102/52; PULSE 84; RESP 16; TEMP 36.9; O2SAT 100
[2020-05-13] MEDS: Docusate Sodium 100 MG Capsule PO (10:22)
[2020-05-13] MEDS: Folic Acid 1 MG Tablet PO (10:22)
[2020-05-13] MEDS: buPROPion (SR) 150 MG Tablet.SA PO (10:22)
[2020-05-13] MEDS: FLUoxetine 20 MG Capsule 60 MG PO (10:22)
[2020-05-13] MEDS: Pregabalin 75 MG Capsule PO (10:27)
--- NOTE | 2020-05-13 12:25 | NURSING ---
Inocente Coleman has arrived at this time to visit with pt- attempted to add to visitor list but was unable.
[2020-05-13] MEDS: Ketorolac 30 MG/ML Syringe IV (12:36)
[2020-05-13 13:41] VITALS: PULSE 76; RESP 16; O2SAT 99
--- NOTE | 2020-05-13 14:59 | PCM.PN.HOSP ---
<Kvng Rivera - Last Filed: 05/13/20 14:59> Patient Problems: Active and Suspected Problems (Last Reviewed 02/09/19 @ 07:[address] Rick Whiting MD) Psoriasis (Acute) Insomnia (Acute) Anxiety (Acute) Depression (Acute) Sleep apnea (Acute) Reason for Visit: left foot reconstruction Subjective: Doing well. No fever/chills. No SOB/cough. No nausea vomiting. On my exam she was sitting comfortably on the side of the bed using her phone, appeared very relaxed and in NAD. Despite this she c/o 9/10 pain. Vitals/I&O's: Vital Signs Temp Pulse Resp BP Pulse Ox 98.4 F 76 16 102/52 L 99 05/13/20 10:12 05/13/20 13:41 05/13/20 13:41 05/13/20 10:12 05/13/20 13:41 Oxygen Delivery Method Room Air Weight: 147 lb 14.883 oz Body Mass Index (BMI) 23.8 Intake and Output for Last 24 Hours 05/11/20 05/12/20 05/13/20 23:59 23:59 23:59 Intake Total 3425 / 3425 1011.25 / 1011.25 Output Total 900 / 900 3050 / 3050 Balance 2525 / 2525 -2038.75 / -2037.75 General: Alert, Oriented x3, Cooperative HEENT: Atraumatic, PERRLA, EOMI, Normocephalic Neck: Supple, No JVD, Negative Carotid Bruits Lungs: Clear to auscultation, Normal air movement Cardiovascular: Regular rate, No murmurs Abdomen: Bowel Sounds Present, Soft, Non Tender Extremities: No edema, Capillary Refill Less than 3 Seconds Skin: No rashes, No breakdown Musculoskeletal: No Tenderness to Palpation of Joints or Extremities Neurological: Cranial nerves II-XII grossly intact Psych/Mental Status: Flat Affect, Alert and oriented to time, place, person, mood and affect Laboratory Results 05/13/20 06:50: WBC 6.3, RBC 3.34 L, Hgb 10.9 L, Hct 34.8 L, MCV 104.2 H, MCH 32.6 H, MCHC 31.3 L, RDW Std Deviation 52.8 H, RDW Coeff of Marquise 13.9, Plt Count 199, MPV 10.5 05/13/20 06:50: Sodium 146 H, Potassium 3.8, Chloride 111 H, Carbon Dioxide 28.0, Anion Gap 7, BUN 13, Creatinine 0.75, Estim Creat Clear Calc 79.34, Est GFR (MDRD) Af Amer 102, Est GFR (MDRD) Non-Af 85, BUN/Creatinine Ratio 17.2, Glucose 82, Calcium 8.2 L, Total Bilirubin 0.50, AST 15, ALT 37, Alkaline Phosphatase 80, Total Protein 6.0 L, Albumin 3.2, Globulin 2.8, Albumin/Globulin Ratio 1.1 Current Medications Hydrocodone Bitart/Acetaminophen (Cohutta 5mg-325mg) 1 - 2 tablet PO Q6H PRN PRN PRN Reason: Pain Score 1-5/10 Last Admin: 05/13/20 10:25 Dose: 2 tablet Documented by: Albuterol Sulfate (Ventolin Aerosols) 2.5 mg INHALATION Q6H PRN PRN PRN Reason: Asthma Albuterol Sulfate (Ventolin Aerosols) 2.5 mg INHALATION Q6HWA.RT [facility] Last Admin: 05/13/20 13:41 Dose: 2.5 mg Documented by: Baclofen (Lioresal) 10 mg PO DAILY@2200 [facility] Budesonide (Pulmicort Aerosol) 0.5 mg INHALATION Q12H.RT [facility] Last Admin: 05/13/20 07:07 Dose: 0.5 mg Documented by: Bupropion HCl (Wellbutrin Sr (150mg Tablets)) 150 mg PO BID [facility] Last Admin: 05/13/20 10:22 Dose: 150 mg Documented by: Docusate Sodium (Colace) 200 mg PO BID PRN PRN PRN Reason: Constipation Docusate Sodium (Colace) 100 mg PO BID [facility] Last Admin: 05/13/20 10:22 Dose: 100 mg Documented by: Enoxaparin Sodium (Lovenox) 40 mg SC DAILY@0600 [facility] Last Admin: 05/13/20 06:05 Dose: 40 mg Documented by: Fluoxetine HCl (Prozac) 60 mg PO DAILY [facility] Last Admin: 05/13/20 10:22 Dose: 60 mg Documented by: Folic Acid (Folic Acid) 1 mg PO DAILY@0800 [facility] Last Admin: 05/13/20 10:22 Dose: 1 mg Documented by: Hydromorphone HCl (Dilaudid Inj) 1 mg IV Q3H PRN PRN PRN Reason: Pain Score 6-10/10 Last Admin: 05/13/20 06:10 Dose: 1 mg Documented by: Lactated Ringer's () 1,000 mls @ 100 mls/hr IV .Q10H [facility] Last Infusion: 05/13/20 10:20 Dose: Infused Documented by: Mirtazapine (Remeron) 45 mg PO QHS [facility] Last Admin: 05/12/20 23:00 Dose: 45 mg Documented by: Ondansetron HCl (Zofran) 4 mg IV Q8H PRN PRN PRN Reason: Nausea Pantoprazole Sodium (Protonix) 20 mg PO QHS [facility] Last Admin: 05/12/20 20:53 Dose: 20 mg Documented by: Potassium Chloride (K-Dur) 10 meq PO DAILYCM [facility] Last Admin: 05/13/20 10:22 Dose: 10 meq Documented by: Pregabalin (Lyrica) 75 mg PO BID [facility] Last Admin: 05/13/20 10:27 Dose: 75 mg Documented by: Rizatriptan Benzoate (Maxalt) 5 mg PO DAILY PRN PRN Reason: HEADACHE Last Admin: 05/12/20 20:53 Dose: 5 mg Documented by: Sodium Chloride () 10 - 40 ml IV UD PRN PRN Reason: SALINE FLUSH Last Admin: 05/13/20 12:37 Dose: 10 ml Documented by: Topiramate (Topamax) 100 mg PO QHS [facility] Last Admin: 05/12/20 20:54 Dose: 100 mg Documented by: STROKE Vital Signs/Narrative: Vital Signs Pulse Resp Pulse Ox 05/13/20 13:41 76 16 99 Medical Necessity - Tobacco Use Smoking Status: Never smoker Tobacco Use: Non-smoker Assessment/Plan All Active Problems (Last Reviewed 02/09/19 @ 07:[address] Rick Whiting MD) Psoriasis (Acute) Insomnia (Acute) Anxiety (Acute) Depression (Acute) Sleep apnea (Acute) GERD (gastroesophageal reflux disease) (Acute) Non-healing surgical wound (Acute) Complication, postoperative infection (Acute) Open wound of back wall of thorax without penetration into thoracic cavity (Acute) Postoperative hematoma of subcutaneous tissue following dermatologic procedure (Acute) Postoperative seroma of subcutaneous tissue after dermatologic procedure (Acute) 1. Left foot s/p reconstructive surgery / revision per Dr. Torres POD#1 - Increased pain as nerve block worn off. She uses up to 10 mg norco po prn q 6h at home for pain so pain control here will likely require higher than normal amounts of opiates due to tolerance. Afebrile with no leukocytosis. At risk of infection due to immunocompromised state due to psoriatic arthritis and treatment including tremfya, prednisone, and MTX. Covid Neg. Fortunately she has no flare at this time and only needs prednisone prn. F/u with rheum. 2. Psoriatic arthritis - Tremfya to be held due to risk of infection until cleared by her pie cutter. Hold MTX, prednisone for now. Continue folate. 3. Chronic back pain due to DDD with radiculopathy - pt of Dr. Ibrahim - I counselled the pt on the importance of close communication with Dr. Ibrahim regarding any pain medications that she will need as a result of surgery so that she does not violate her pain contract. She has a spinal stimulator. Her home lyrica, baclofen are continued. 4. Anx/depression/PTSD - ok to continue home meds. 5. Asthma - no exacerbation - lungs clear. continue budesonide and prn areosols. 6. IBS - resume linzess at al. 7. Severe Gerd - underwent Jamil en Y for this in past. Continue PPI. 8. Overactive bladder - continue toviaz at al. 9. Hx migraines - topamax, imitrex prn The patient appears comfortable with no acute needs at this time and is appropriate for discharge home. Thank you for the opportunity to participate in the care of this patient. This patient was seen by Kvng Rivera PA-C under the supervision of Dr. Powell <Nancy Powell - Last Filed: 05/13/20 15:49> Subjective: I agree with the above and the following is reflective of my independent exam Having pain still in foot 07/13. Adjustments made in pain meds already. Vitals/I&O's: Vital Signs Temp Pulse Resp BP Pulse Ox 98.5 F 74 16 124/73 H 100 05/13/20 15:12 05/13/20 15:12 05/13/20 15:12 05/13/20 15:12 05/13/20 15:12 Oxygen Delivery Method Room Air Weight: 67.1 kg Body Mass Index (BMI) 23.8 Intake and Output for Last 24 Hours 05/11/20 05/12/20 05/13/20 23:59 23:59 23:59 Intake Total 3425 / 3425 1011.25 / 1011.25 Output Total 900 / 900 3050 / 3050 Balance 2525 / 2525 -203.75 / -2037.75 General: Alert, Oriented x3, Cooperative, No apparent distress, Well developed, Well nourished HEENT: Atraumatic, PERRLA, EOMI, Normocephalic Lungs: Clear to auscultation, Normal air movement, No rhonchi, No wheeze, No rales Cardiovascular: Regular rate, Regular Rhythm, Normal S1, Normal S2, No murmurs Abdomen: Bowel Sounds Present, Soft, Non Tender, Non-Distended Extremities: No clubbing, No cyanosis, No edema, Capillary Refill Less than 3 Seconds, Peripheral Pulses Normal Musculoskeletal: - - L LE in soft cast to knee Neurological: Neuro grossly intact Psych/Mental Status: Flat Affect Laboratory Results 05/13/20 06:50: WBC 6.3, RBC 3.34 L, Hgb 10.9 L, Hct 34.8 L, MCV 104.2 H, MCH 32.6 H, MCHC 31.3 L, RDW Std Deviation 52.8 H, RDW Coeff of Marquise 13.9, Plt Count 199, MPV 10.5 05/13/20 06:50: Sodium 146 H, Potassium 3.8, Chloride 111 H, Carbon Dioxide 28.0, Anion Gap 7, BUN 13, Creatinine 0.75, Estim Creat Clear Calc 79.34, Est GFR (MDRD) Af Amer 102, Est GFR (MDRD) Non-Af 85, BUN/Creatinine Ratio 17.2, Glucose 82, Calcium 8.2 L, Total Bilirubin 0.50, AST 15, ALT 37, Alkaline Phosphatase 80, Total Protein 6.0 L, Albumin 3.2, Globulin 2.8, Albumin/Globulin Ratio 1.1 Current Medications Hydrocodone Bitart/Acetaminophen (Cohutta 5mg-325mg) 1 - 2 tablet PO Q6H PRN PRN PRN Reason: Pain Score 1-5/10 Last Admin: 05/13/20 10:25 Dose: 2 tablet Documented by: Albuterol Sulfate (Ventolin Aerosols) 2.5 mg INHALATION Q6H PRN PRN PRN Reason: Asthma Albuterol Sulfate (Ventolin Aerosols) 2.5 mg INHALATION Q6HWA.RT [facility] Last Admin: 05/13/20 13:41 Dose: 2.5 mg Documented by: Baclofen (Lioresal) 10 mg PO DAILY@2200 [facility] Budesonide (Pulmicort Aerosol) 0.5 mg INHALATION Q12H.RT [facility] Last Admin: 05/13/20 07:07 Dose: 0.5 mg Documented by: Bupropion HCl (Wellbutrin Sr (150mg Tablets)) 150 mg PO BID [facility] Last Admin: 05/13/20 10:22 Dose: 150 mg Documented by: Docusate Sodium (Colace) 200 mg PO BID PRN PRN PRN Reason: Constipation Docusate Sodium (Colace) 100 mg PO BID [facility] Last Admin: 05/13/20 10:22 Dose: 100 mg Documented by: Enoxaparin Sodium (Lovenox) 40 mg SC DAILY@0600 [facility] Last Admin: 05/13/20 06:05 Dose: 40 mg Documented by: Fluoxetine HCl (Prozac) 60 mg PO DAILY [facility] Last Admin: 05/13/20 10:22 Dose: 60 mg Documented by: Folic Acid (Folic Acid) 1 mg PO DAILY@0800 [facility] Last Admin: 05/13/20 10:22 Dose: 1 mg Documented by: Hydromorphone HCl (Dilaudid Inj) 1 mg IV Q3H PRN PRN PRN Reason: Pain Score 6-10/10 Last Admin: 05/13/20 15:18 Dose: 1 mg Documented by: Lactated Ringer's () 1,000 mls @ 100 mls/hr IV .Q10H [facility] Last Infusion: 05/13/20 10:20 Dose: Infused Documented by: Mirtazapine (Remeron) 45 mg PO QHS [facility] Last Admin: 05/12/20 23:00 Dose: 45 mg Documented by: Ondansetron HCl (Zofran) 4 mg IV Q8H PRN PRN PRN Reason: Nausea Pantoprazole Sodium (Protonix) 20 mg PO QHS [facility] Last Admin: 05/12/20 20:53 Dose: 20 mg Documented by: Potassium Chloride (K-Dur) 10 meq PO DAILYCM [facility] Last Admin: 05/13/20 10:22 Dose: 10 meq Documented by: Pregabalin (Lyrica) 75 mg PO BID [facility] Last Admin: 05/13/20 10:27 Dose: 75 mg Documented by: Rizatriptan Benzoate (Maxalt) 5 mg PO DAILY PRN PRN Reason: HEADACHE Last Admin: 05/12/20 20:53 Dose: 5 mg Documented by: Sodium Chloride () 10 - 40 ml IV UD PRN PRN Reason: SALINE FLUSH Last Admin: 05/13/20 15:18 Dose: 10 ml Documented by: Topiramate (Topamax) 100 mg PO QHS [facility] Last Admin: 05/12/20 20:54 Dose: 100 mg Documented by: STROKE Vital Signs/Narrative: Vital Signs Temp Pulse Resp BP Pulse Ox 05/13/20 15:12 98.5 F 74 16 124/73 H 100 05/13/20 13:41 76 16 99 Assessment/Plan ASSESSMENT L Foot reconstructive surgery Psoriatic arthitis Anxiety/Depression/PTSD Asthma Chronic pain IBS GERD Hypernatremia Anemia PLAN -d/c IVF -pain med adjustment per surgery -Ok to d/c from medical standpoint Inpatient E&M: 92477 Subs Hosp L2
[2020-05-13 15:12] VITALS: BP 124/73; PULSE 74; RESP 16; TEMP 36.9; O2SAT 100
--- NOTE | 2020-05-13 16:14 | NURSING ---
This nurse is aware of Vital Signs that were taken recently by Joselin SOLIS.
--- NOTE | 2020-05-13 16:23 | CASEMGMT ---
GALLAGHER form completed at this time with patient. IRMA GOLDSMITH explained GALLAGHER form and patient voiced understanding. GALLAGHER form signed and placed in chart. Copy provided to patient. IRMA GOLDSMITH updated by nursing that senior planning analyst does not want patient to have therapy at discharge. Patient and concerned about patient being at home alone while is at work. IRMA GOLDSMITH provided list of private branch exchange repairer list. Also encouraged patient to ask friends for help from friends. Patient voiced understanding and had no further questions at this time.
--- NOTE | 2020-05-13 18:38 | DCINST_ITS ---
Discharge Diet: No Restrictions Discharge Activity: May Shower - with shower bag to keep surgical site dry Ice area for (Minutes): 15 Weight Bearing Status: No weight bearing Keep extremity elevated above heart level: Left Leg Call your doctor if your incision/area has: Continuous Slow Oozing, Sudden Increased Bleeding, Increased Pain/ Swelling, Increased Redness, Foul Smelling Discharge, Swelling at the incision site Call your doctor if you observe: Fever of 101 or Higher, Numbness or Tingling, Chest pain, Calf discomfort, Uncontrolled pain Cleanse incision/area with: Keep Dressing Clean & Dry Allergies/Adverse Reactions: Allergies nabumetone Allergy (Verified 05/12/20 08:01) Hives thimerosal Allergy (Verified 05/12/20 08:01) Other PER ALLERGY TESTING naproxen [From Naprosyn] Adverse Reaction (Verified 05/12/20 08:01) Other oxycodone HCl [From Percocet] Adverse Reaction (Verified 05/12/20 08:01) Other birds Allergy (Uncoded 05/12/20 08:01) Other dust Allergy (Uncoded 05/12/20 08:01) PT UNSURE OF REACTION other molds Allergy (Uncoded 05/12/20 08:01) Other seasonal Allergy (Uncoded 05/12/20 08:01) Other COWS Adverse Reaction (Uncoded 05/12/20 08:01) Other Medications to take at Discharge Albuterol Aerosols [Ventolin Aerosols] 2.5 mg INHALATION Q6H PRN PRN 09/22/17 Baclofen [Lioresal] 10 mg PO DAILY 09/22/17 Econazole [Spectazole] 1 applic TOPICAL DAILY 09/22/17 Fluoxetine [Prozac] 60 mg PO DAILY 09/22/17 Linaclotide [Linzess] 290 mcg PO DAILY 09/22/17 Pregabalin [Lyrica] 75 mg PO BID 09/22/17 buPROPion SR [Wellbutrin SR (150mg tablets)] 150 mg PO BID 09/22/17 Docusate Sodium [Colace] 100 mg PO BID cap 11/29/17 Lactobacillus Combo No.11 [Probiotic] 1 ea PO DAILY #60 cap.sprink 11/29/17 omega-3 fatty acids 1,000 mg capsule 1,000 mg PO DAILY 11/30/18 Budesonide/Formoterol 160/4.5 [Symbicort 160/4.5 Mcg Inhaler (SP)] 2 puff INHALATION BID 02/04/19 Folic Acid 0.8 mg PO DAILY 02/04/19 Omeprazole [Prilosec] 20 mg PO QHS 12/02/19 Fesoterodine Fumarate [Toviaz] 4 mg PO DAILY 05/04/20 Mirtazapine 45 mg PO QHS 05/04/20 Multivitamin with Minerals [Multiple Vitamin] 1 ea PO DAILY 05/04/20 Potassium Chloride 10 meq PO DAILY 05/04/20 Sumatriptan Succinate [Imitrex] 25 mg PO DAILY PRN 05/04/20 Topiramate 100 mg PO QHS 05/04/20 Enoxaparin Sodium [Lovenox] 40 mg SQ DAILY 14 Days #14 ml 05/13/20 Hydrocodone/Acetaminophen [[place] 10-325 Tablet] 1 ea PO Q6H PRN PRN 7 Days #30 tab 05/13/20 The following prescriptions were given: Enoxaparin Sodium [Lovenox] 40 mg SQ DAILY 14 Days #14 ml [facility]: [id number] Hydrocodone/Acetaminophen [[place] 10-325 Tablet] 1 ea PO Q6H PRN PRN 7 Days #30 tab PRN Reason: Pain Score 4-10/10 Transmission Status: Received by [id number] Primary Care Physician: Everton Acevedo DO [Primary Care Provider] - Test Results: Test results from this visit will be discussed in further detail at your follow- up appointment, if applicable. Please Follow Up With: Lakeisha Torres DPM When: next week at [facility] ([phone]) Proposed Discharge Date: 05/13/20
--- NOTE | 2020-05-13 18:39 | PCM.DC.SUM ---
Discharge Date and Diagnosis Date of Admission: 05/12/20 Date of Discharge: 05/13/20 - Primary Discharge Diagnosis Acute Problems: Active Problems (Last Reviewed 02/09/19 @ 07:[address] Rick Whiting MD) Psoriasis (Acute) Insomnia (Acute) Anxiety (Acute) Depression (Acute) Sleep apnea (Acute) left foot pain with retained painful hardware and flat foot deformity - Secondary Discharge Diagnosis Chronic Problems: Chronic Problems (Last Reviewed 02/09/19 @ 07:[address] 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 Removal of arthroresis device. Status post subtalar joint and first metatarsal cuneiform arthrodesis with internal fixation the fixation is in. The desired position and trajectory. There were no acute injuries noted. Operations: - - s/p left foot arthroresis implant device removal Subtalar joint and first metatarsal cuneiform arthrodesis with internal fixation Summary of Care Provided: The patient is a 54 year old F with history of chronic pain was admitted postoperative left foot. She had surgery to remove her painful hardware and also to further correct her symptomatic pes planus foot deformity. She had a left lower extremity regional block and was provided with oral and IV pain medication. She eventually stabilized and tapered down to medication that was tolerable for her to return home. She remained medically stable throughout the hospital observation course. She also saw physical therapy and demonstrated the ability to remain nonweightbearing with minimal assistance. - Physical Exam Vitals/I&O's: Vital Signs Temp Pulse Resp BP Pulse Ox 98.5 F 74 16 124/73 H 100 05/13/20 15:12 05/13/20 15:12 05/13/20 15:12 05/13/20 15:12 05/13/20 15:12 Oxygen Delivery Method Room Air Weight: 67.1 kg Body Mass Index (BMI) 23.8 Intake and Output for Last 24 Hours 05/11/20 05/12/20 05/13/20 23:59 23:59 23:59 Intake Total 3425 / 3425 1011.25 / 1011.25 Output Total 900 / 900 3050 / 3050 Balance 2525 / 2525 -2038.75 / -2038.75 General: Alert, Oriented x3, Cooperative Lungs: Clear to auscultation Cardiovascular: Regular rate, Regular Rhythm Skin: Incision - Dressing clean, dry, intact Musculoskeletal: - - Rectus left lower extremity. Compartments soft to palpate left lower extremity. Splint intact Neurological: Sensory exam intact to light touch and pain Psych/Mental Status: Normal Affect, Appropriate, - - Flat affect Laboratory Results 05/13/20 06:50: WBC 6.3, RBC 3.34 L, Hgb 10.9 L, Hct 34.8 L, MCV 104.2 H, MCH 32.6 H, MCHC 31.3 L, RDW Std Deviation 52.8 H, RDW Coeff of Marquise 13.9, Plt Count 199, MPV 10.5 05/13/20 06:50: Sodium 146 H, Potassium 3.8, Chloride 111 H, Carbon Dioxide 28.0, Anion Gap 7, BUN 13, Creatinine 0.75, Estim Creat Clear Calc 79.34, Est GFR (MDRD) Af Amer 102, Est GFR (MDRD) Non-Af 85, BUN/Creatinine Ratio 17.2, Glucose 82, Calcium 8.2 L, Total Bilirubin 0.50, AST 15, ALT 37, Alkaline Phosphatase 80, Total Protein 6.0 L, Albumin 3.2, Globulin 2.8, Albumin/Globulin Ratio 1.1 Current Medications Hydrocodone Bitart/Acetaminophen ([place] 5mg-325mg) 1 - 2 tablet PO Q6H PRN PRN PRN Reason: Pain Score 1-5/10 Last Admin: 05/13/20 10:25 Dose: 2 tablet Documented by: Albuterol Sulfate (Ventolin Aerosols) 2.5 mg INHALATION Q6H PRN PRN PRN Reason: Asthma Albuterol Sulfate (Ventolin Aerosols) 2.5 mg INHALATION Q6HWA.RT [facility] Last Admin: 05/13/20 13:41 Dose: 2.5 mg Documented by: Baclofen (Lioresal) 10 mg PO DAILY@2200 [facility] Budesonide (Pulmicort Aerosol) 0.5 mg INHALATION Q12H.RT [facility] Last Admin: 05/13/20 07:07 Dose: 0.5 mg Documented by: Bupropion HCl (Wellbutrin Sr (150mg Tablets)) 150 mg PO BID [facility] Last Admin: 05/13/20 10:22 Dose: 150 mg Documented by: Docusate Sodium (Colace) 200 mg PO BID PRN PRN PRN Reason: Constipation Docusate Sodium (Colace) 100 mg PO BID [facility] Last Admin: 05/13/20 10:22 Dose: 100 mg Documented by: Enoxaparin Sodium (Lovenox) 40 mg SC DAILY@0600 [facility] Last Admin: 05/13/20 06:05 Dose: 40 mg Documented by: Fluoxetine HCl (Prozac) 60 mg PO DAILY [facility] Last Admin: 05/13/20 10:22 Dose: 60 mg Documented by: Folic Acid (Folic Acid) 1 mg PO DAILY@0800 [facility] Last Admin: 05/13/20 10:22 Dose: 1 mg Documented by: Hydromorphone HCl (Dilaudid Inj) 1 mg IV Q3H PRN PRN PRN Reason: Pain Score 6-10/10 Last Admin: 05/13/20 15:18 Dose: 1 mg Documented by: Lactated Ringer's () 1,000 mls @ 100 mls/hr IV .Q10H [facility] Last Infusion: 05/13/20 10:20 Dose: Infused Documented by: Mirtazapine (Remeron) 45 mg PO QHS [facility] Last Admin: 05/12/20 23:00 Dose: 45 mg Documented by: Ondansetron HCl (Zofran) 4 mg IV Q8H PRN PRN PRN Reason: Nausea Pantoprazole Sodium (Protonix) 20 mg PO QHS [facility] Last Admin: 05/12/20 20:53 Dose: 20 mg Documented by: Potassium Chloride (K-Dur) 10 meq PO DAILYCM [facility] Last Admin: 05/13/20 10:22 Dose: 10 meq Documented by: Pregabalin (Lyrica) 75 mg PO BID [facility] Last Admin: 05/13/20 10:27 Dose: 75 mg Documented by: Rizatriptan Benzoate (Maxalt) 5 mg PO DAILY PRN PRN Reason: HEADACHE Last Admin: 05/12/20 20:53 Dose: 5 mg Documented by: Sodium Chloride () 10 - 40 ml IV UD PRN PRN Reason: SALINE FLUSH Last Admin: 05/13/20 15:18 Dose: 10 ml Documented by: Topiramate (Topamax) 100 mg PO QHS [facility] Last Admin: 05/12/20 20:54 Dose: 100 mg Documented by: Discharge Diet: No Restrictions Discharge Activity: May Shower - with shower bag to keep surgical site dry Ice area for (Minutes): 15 Weight Bearing Status: No weight bearing Keep extremity elevated above heart level: Left Leg Call your doctor if your incision/area has: Continuous Slow Oozing, Sudden Increased Bleeding, Increased Pain/ Swelling, Increased Redness, Foul Smelling Discharge, Swelling at the incision site Call your doctor if you observe: Fever of 101 or Higher, Numbness or Tingling, Chest pain, Calf discomfort, Uncontrolled pain Cleanse incision/area with: Keep Dressing Clean & Dry Home Medications: Medications to take at Discharge Albuterol Aerosols [Ventolin Aerosols] 2.5 mg INHALATION Q6H PRN PRN 09/22/17 Baclofen [Lioresal] 10 mg PO DAILY 09/22/17 Econazole [Spectazole] 1 applic TOPICAL DAILY 09/22/17 Fluoxetine [Prozac] 60 mg PO DAILY 09/22/17 Linaclotide [Linzess] 290 mcg PO DAILY 09/22/17 Pregabalin [Lyrica] 75 mg PO BID 09/22/17 buPROPion SR [Wellbutrin SR (150mg tablets)] 150 mg PO BID 09/22/17 Docusate Sodium [Colace] 100 mg PO BID cap 11/29/17 Lactobacillus Combo No.11 [Probiotic] 1 ea PO DAILY #60 cap.sprink 11/29/17 omega-3 fatty acids 1,000 mg capsule 1,000 mg PO DAILY 11/30/18 Budesonide/Formoterol 160/4.5 [Symbicort 160/4.5 Mcg Inhaler (SP)] 2 puff INHALATION BID 02/04/19 Folic Acid 0.8 mg PO DAILY 02/04/19 Omeprazole [Prilosec] 20 mg PO QHS 12/02/19 Fesoterodine Fumarate [Toviaz] 4 mg PO DAILY 05/04/20 Mirtazapine 45 mg PO QHS 05/04/20 Multivitamin with Minerals [Multiple Vitamin] 1 ea PO DAILY 05/04/20 Potassium Chloride 10 meq PO DAILY 05/04/20 Sumatriptan Succinate [Imitrex] 25 mg PO DAILY PRN 05/04/20 Topiramate 100 mg PO QHS 05/04/20 Enoxaparin Sodium [Lovenox] 40 mg SQ DAILY 14 Days #14 ml 05/13/20 Hydrocodone/Acetaminophen [[place] 10-325 Tablet] 1 ea PO Q6H PRN PRN 7 Days #30 tab 05/13/20 Following Prescrptions Were Given to Patient: Enoxaparin Sodium [Lovenox] 40 mg SQ DAILY 14 Days #14 ml Transmission Status: Received by [id number] Hydrocodone/Acetaminophen [[place] 10-325 Tablet] 1 ea PO Q6H PRN PRN 7 Days #30 tab PRN Reason: Pain Score 4-10/10 Transmission Status: Received by [id number] Primary Care Physician: Everton Acevedo DO [Primary Care Provider] - Please Follow Up With: Lakeisha Torres DPM When: next week at [facility] ([phone]) Minutes spent on discharge:: 20 Patient Condition:: Good Medical Necessity - Tobacco Use Smoking Status: Never smoker Tobacco Use: Non-smoker Meaningful Use Info Meaningful Use Diagnoses (Choose all that apply): None applicable
== END 2020-05-13 19:17 | disposition home or self-care (01) ==
LOC: SDC 13:15 → MS3 13:15
PROVIDERS: Anesthesiology; Admitting Provider Podiatrist; PCP Student in an Organized Health Care Education/Training Program; Referring Provider Podiatrist; Visit Provider Internal Medicine
PROC: (CPT 20680; principal; 2020-05-12 08:40)
DX: T84.213A Breakdown (mechanical) of internal fixation device of bones of foot and toes, initial encounter (principal); M21.42 Flat foot [pes planus] (acquired), left foot; Z11.59 Encounter for screening for other viral diseases; M79.672 Pain in left foot; G47.30 Sleep apnea, unspecified; F32.9 Major depressive disorder, single episode, unspecified; F41.9 Anxiety disorder, unspecified; L40.50 Arthropathic psoriasis, unspecified; G89.29 Other chronic pain; Y79.8 Miscellaneous orthopedic devices associated with adverse incidents, not elsewhere classified; K58.9 Irritable bowel syndrome, unspecified; J45.909 Unspecified asthma, uncomplicated; Z79.899 Other long term (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 therapy; Z79.51 Long term (current) use of inhaled steroids; K21.9 Gastro-esophageal reflux disease without esophagitis; N32.81 Overactive bladder; G43.909 Migraine, unspecified, not intractable, without status migrainosus; F43.10 Post-traumatic stress disorder, unspecified
CPT/HCPCS: 01480; 20680; 28725; 28730; 64445; 36415; 73600; 73630; 76000; 80053; 85027; 87635; 94640; 96361; 96372; 96374; 96375; 96376; 97163; 99218; 99251; C1713; G2023; J7120; A4216; G0378; G0379; G0463; J2405; U0003

== ENCOUNTER → 2020-05-29 | Outpatient (CLI) | payer MEDICARE, OTHER, SELFPAY ==
[2020-05-12 14:51] VITALS: BMI 23.8
[2020-05-29 15:07] LABS: Absolute Lymphocyte Count 1.69 X10^3/uL (0.83-4.51); Absolute Neutrophil Count 2.3 X10^3/uL (2.0-7.7); Basophil# 0.03 X10^3/uL; Basophil% 0.7 % (0-1); Eosinophil# 0.03 X10^3/uL; Eosinophils% 0.7 % (0-5); Hematocrit 37.4 % (37-47); Hemoglobin 11.8 g/dL (12.0-15.0); Lymphocyte # 1.69 X10^3/ul (4.0); Lymphocyte % 38.5 % (19-41); Mean Corp Hgb Conc 31.6 g/dL (32-36); Mean Corpuscular Hgb 32.4 pg (27.0-32.0); Mean Corpuscular Volume 102.7 fL (81-99); Monocyte# 0.36 X10^3/uL; Monocyte% 8.2 % (0-10); NRBC Flagged by Analyzer 0 % (0-5); Neutrophil # 2.27 X10^3/uL (2.7-7.7); Neutrophil % 51.7 % (47-70); Platelet Count 414 K/mm3 (150-450); RBC Distribution Width CV 13.4 % (11.6-14.6); RBC Distribution Width SD 51.2 fl (35.1-43.9); Red Blood Count 3.64 M/mm3 (4.2-5.4); White Blood Count 4.4 K/mm3 (4.4-11.0)
== END | disposition home or self-care (01) ==
LOC: MTLAB 12:42
PROVIDERS: PCP Student in an Organized Health Care Education/Training Program; Referring Provider Internal Medicine Rheumatology; Visit Provider Internal Medicine Rheumatology
DX: L40.59 Other psoriatic arthropathy (principal); M79.7 Fibromyalgia; M17.11 Unilateral primary osteoarthritis, right knee; L40.8 Other psoriasis; K21.9 Gastro-esophageal reflux disease without esophagitis; M48.061 Spinal stenosis, lumbar region without neurogenic claudication; M48.02 Spinal stenosis, cervical region; K58.0 Irritable bowel syndrome with diarrhea; Z79.899 Other long term (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 therapy
CPT/HCPCS: 36415; 85025

== ENCOUNTER → 2020-06-29 | Outpatient (CLI) | payer MEDICARE, OTHER, SELFPAY ==
[2020-05-12 14:51] VITALS: BMI 23.8
[2020-06-29 15:42] LABS: Absolute Lymphocyte Count 2.19 X10^3/uL (0.83-4.51); Absolute Neutrophil Count 2.1 X10^3/uL (2.0-7.7); Basophil# 0.06 X10^3/uL; Basophil% 1.2 % (0-1); Eosinophil# 0.05 X10^3/uL; Hematocrit 36.1 % (37-47); Hemoglobin 11.7 g/dL (12.0-15.0); Lymphocyte # 2.19 X10^3/ul (4.0); Lymphocyte % 45.2 % (19-41); Mean Corp Hgb Conc 32.4 g/dL (32-36); Mean Corpuscular Volume 98.6 fL (81-99); Monocyte# 0.39 X10^3/uL; Monocyte% 8.1 % (0-10); NRBC Flagged by Analyzer 0 % (0-5); Neutrophil # 2.14 X10^3/uL (2.7-7.7); Neutrophil % 44.3 % (47-70); Platelet Count 309 K/mm3 (150-450); RBC Distribution Width CV 12.9 % (11.6-14.6); RBC Distribution Width SD 46.4 fl (35.1-43.9); Red Blood Count 3.66 M/mm3 (4.2-5.4); White Blood Count 4.8 K/mm3 (4.4-11.0)
[2020-06-29 16:25] LABS: ALB/GLOB Ratio 1.3 RATIO (0.9-2.4); AST(SGOT) 20 U/L (15-37); Alanine Aminotransfer ALT/SGPT 67 U/L (13-56); Albumin, Serum 3.9 g/dL (3.2-5.0); Alkaline Phosphatase 121 U/L (45-117); Anion Gap 8 (5-15); BUN 16 mg/dL (7-18); BUN/Creat Ratio 19.8 RATIO (10-20); Chloride 108 mmol/L (98-107); Creatinine, Serum 0.81 mg/dL (0.55-1.02); EST Glomerular Filtration Rate 78 mL/min (>60); Est Glom Filt Rate - Afr Amer 95 mL/min (>60); Globulin 2.9 g/dL (2.2-4.2); Glucose 78 mg/dL (74-106); Potassium 3.6 mmol/L (3.5-5.1); Protein, Total 6.8 g/dL (6.4-8.2); Sodium Level 142 mmol/L (136-145)
== END | disposition home or self-care (01) ==
LOC: MTLAB 13:54
PROVIDERS: PCP Student in an Organized Health Care Education/Training Program; Referring Provider Internal Medicine Rheumatology; Visit Provider Internal Medicine Rheumatology
DX: L40.59 Other psoriatic arthropathy (principal); M79.7 Fibromyalgia; M17.11 Unilateral primary osteoarthritis, right knee; L40.8 Other psoriasis; K21.9 Gastro-esophageal reflux disease without esophagitis; M48.061 Spinal stenosis, lumbar region without neurogenic claudication; M48.02 Spinal stenosis, cervical region; K58.0 Irritable bowel syndrome with diarrhea; F41.9 Anxiety disorder, unspecified; F32.89 Other specified depressive episodes; J45.909 Unspecified asthma, uncomplicated; Z98.84 Bariatric surgery status; Z79.899 Other long term (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 therapy
CPT/HCPCS: 36415; 80053; 85025

== ENCOUNTER 2020-07-06 15:05 | Emergency (ER) | payer MEDICARE, OTHER, SELFPAY ==
[2020-05-12 14:51] VITALS: BMI 23.8
[2020-07-06 15:07] VITALS: BP 132/78; PULSE 59; RESP 14; TEMP 36.7; O2SAT 100; BMI 22.7
--- NOTE | 2020-07-06 16:02 | ED.DCSUM_ITS ---
- ER Visit Summary Date of Service: 07/06/20 Chief Complaint: Right lateral rib cage pain History of Present Illness: The patient is a [address] chronic intercostal rib cage pain for 9 months. Was seen by multiple physicians. Had her gallbladder taken out which he thought would resolve the issue and she still has the same pain. She is on Hycodan at home for pain. She sees pain management Dr. Ibrahim. She has had prior neck surgery for lipoma and a back stimulator placed for chronic back pain. Nothing particular makes the pain better or worse other than movement. She denies any shortness of breath. No falls or trauma. No hemoptysis. No history of DVT or PE. Again this is the same pain she has had for 9 months. Physical Examination: Middle-aged female no acute distress vital signs stable afebrile pulse ox are percent. On room air no hypoxia. HEENT exam unremark able. Neck nontender. Large scar in the posterior aspect of her neck from prior lipoma resection. Lungs clear to auscultation bilaterally. Heart regular rhythm no murmur. Chest wall reproducible tenderness along her right lateral rib cage intercostal area. There is no ecchymosis or bruising. There is no subcu air or crepitance. Abdomen soft nontender normal bowel sounds no peritoneal signs. Right upper quadrant unremarkable. Extremities moves all 4. Calves nontender or cords. Neurologically she is awake alert with no focal motor deficits. Test Results: None Emergency Department Course and Treatment: Explained to the patient while she has had for 9 months. Her exam is benign other than reproducible costal pain. Needs a follow-up pain management they can possibly consider intercostal nerve block. I will give 1 injections a lot and discharged home she has pain medication at home. Treatment Plan: Pain management. Use her pain medication at home. Disposition: Discharge Impression: Acute on chronic intercostal rib cage pain This note was generated with [employer] dictation software. It may contain incorrect words, spelling, and punctuation that were not noted in review of the chart prior to signing ED Disposition - Plan for ED Patient: Referrals: Everton Acevedo DO [Primary Care Provider] -
--- NOTE | 2020-07-06 16:04 | ED.DEP ---
ED Disposition - Plan for ED Patient: Disposition: Home or Assisted Living Referrals: Everton Acevedo DO [Primary Care Provider] - As Needed Additional Instructions: Home pain medication along with ibuprofen. Call and follow-up with your pain management doctor Dr. Ibrahim as soon as possible. This may respond to an intercostal nerve block.
[2020-07-06] MEDS: HYDROmorphone 1 MG/ML Syringe IM (16:16)
== END 2020-07-06 16:41 | disposition home or self-care (01) ==
LOC: ED 16:07
PROVIDERS: Emergency Provider Emergency Medicine; PCP Student in an Organized Health Care Education/Training Program
DX: R07.81 Pleurodynia (principal); G89.29 Other chronic pain; J45.909 Unspecified asthma, uncomplicated; Z79.51 Long term (current) use of inhaled steroids
CPT/HCPCS: 96372; 99282

== ENCOUNTER → 2020-07-19 | Outpatient (CLI) | payer MEDICARE, OTHER, SELFPAY ==
[2020-07-06 15:07] VITALS: BMI 22.7
--- NOTE | 2020-07-19 12:20 | RAD_ITS ---
STUDY: X-RAY - THORACIC SPINE REASON FOR EXAM: Female, 54 years old. LUMBAR RADICULOPATHY, CHECK SCS PLACEMENT TECHNIQUE: AP and lateral view(s) of the thoracic spine were obtained. COMPARISON: None. FINDINGS: Normal kyphosis of the thoracic spine. There is no substantial scoliosis. There is demineralization of the thoracic spine with endplate spondylosis. There is multilevel disc space narrowing of the thoracic spine. Electrodes from a pain stimulator terminates at the T8-T9 level. Surgical clips are seen in the left upper quadrant. RAD/Thoracic Spine 2 Views IMPRESSION: Multilevel spondylosis and disc space narrowing. Electrodes from a pain stimulator device are seen with the tip at the T8-T9 level. Electronically Signed: Anshul Sams, at 15:33 EDT , Service support ,
== END | disposition home or self-care (01) ==
LOC: RAD 12:14
PROVIDERS: PCP Student in an Organized Health Care Education/Training Program; Referring Provider Nurse Practitioner Family; Visit Provider Nurse Practitioner Family
DX: M54.16 Radiculopathy, lumbar region (principal)
CPT/HCPCS: 72070

== ENCOUNTER → 2020-07-31 | Outpatient (CLI) | payer MEDICARE, OTHER, SELFPAY ==
[2020-07-06 15:07] VITALS: BMI 22.7
[2020-07-31 15:41] LABS: ALB/GLOB Ratio 1.4 RATIO (0.9-2.4); AST(SGOT) 20 U/L (15-37); Alanine Aminotransfer ALT/SGPT 44 U/L (13-56); Albumin, Serum 3.8 g/dL (3.2-5.0); Alkaline Phosphatase 111 U/L (45-117); Anion Gap 3 (5-15); BUN 21 mg/dL (7-18); BUN/Creat Ratio 26.5 RATIO (10-20); Calcium,Total 8.8 mg/dL (8.5-10.1); Chloride 109 mmol/L (98-107); Creatinine, Serum 0.79 mg/dL (0.55-1.02); EST Glomerular Filtration Rate 80 mL/min (>60); Est Glom Filt Rate - Afr Amer 97 mL/min (>60); Globulin 2.8 g/dL (2.2-4.2); Glucose 68 mg/dL (74-106); Potassium 3.5 mmol/L (3.5-5.1); Protein, Total 6.6 g/dL (6.4-8.2); Sodium Level 141 mmol/L (136-145)
== END | disposition home or self-care (01) ==
LOC: MTLAB 12:06
PROVIDERS: PCP Student in an Organized Health Care Education/Training Program; Referring Provider Internal Medicine Rheumatology; Visit Provider Internal Medicine Rheumatology
DX: L40.59 Other psoriatic arthropathy (principal); M79.7 Fibromyalgia; M17.11 Unilateral primary osteoarthritis, right knee; L40.8 Other psoriasis; K21.9 Gastro-esophageal reflux disease without esophagitis; M48.061 Spinal stenosis, lumbar region without neurogenic claudication; M48.02 Spinal stenosis, cervical region; K58.0 Irritable bowel syndrome with diarrhea; N32.81 Overactive bladder; F41.9 Anxiety disorder, unspecified; F32.89 Other specified depressive episodes; J45.909 Unspecified asthma, uncomplicated; Z98.84 Bariatric surgery status; Z79.899 Other long term (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 therapy
CPT/HCPCS: 36415; 80053

== ENCOUNTER → 2020-09-25 15:48 | Outpatient (CLI) | payer MEDICARE, OTHER, SELFPAY ==
--- NOTE | 2020-09-25 15:55 | RAD_ITS ---
STUDY: X-RAY CHEST REASON FOR EXAM: Female, 54 years old. PRE OP TECHNIQUE: Frontal and lateral views COMPARISON: 12/11/2018 FINDINGS: The lungs are clear and expanded. There is no demonstrated pleural abnormality. Normal size heart. Normal mediastinum and alexandra. Normal visualized pulmonary arteries. Normal visualized aortic arch and descending thoracic aorta. Stimulator electrodes at the lower thoracic spine. Normal visualized ribs, clavicles, and shoulders. Surgical clips over the upper abdomen. RAD/Chest PA and Lateral IMPRESSION: No acute pulmonary pathology of the chest. Electronically Signed: Adi Louie DO at 23:32 EST Tel [phone], Service support ,
== END ==
PROVIDERS: PCP Student in an Organized Health Care Education/Training Program; Referring Provider Orthopaedic Surgery; Visit Provider Orthopaedic Surgery
DX: Z01.818 Encounter for other preprocedural examination (principal); Z01.811 Encounter for preprocedural respiratory examination
CPT/HCPCS: 71046

== ENCOUNTER → 2020-10-02 11:45 | Outpatient (CLI) | payer MEDICARE, OTHER, SELFPAY ==
[2020-10-02 15:15] LABS: Absolute Lymphocyte Count 1.91 X10^3/uL (0.83-4.51); Absolute Neutrophil Count 1.2 X10^3/uL (2.0-7.7); Basophil# 0.03 X10^3/uL; Basophil% 0.9 % (0-1); Eosinophil# 0.03 X10^3/uL; Eosinophils% 0.9 % (0-5); Hematocrit 38.6 % (37-47); Hemoglobin 12.2 g/dL (12.0-15.0); Lymphocyte # 1.91 X10^3/ul (4.0); Lymphocyte % 55.2 % (19-41); Mean Corp Hgb Conc 31.6 g/dL (32-36); Mean Corpuscular Hgb 31.8 pg (27.0-32.0); Mean Corpuscular Volume 100.5 fL (81-99); Mean Platelet Vol. 10.6 fl (6.2-12.0); Monocyte# 0.26 X10^3/uL; Monocyte% 7.5 % (0-10); NRBC Flagged by Analyzer 0 % (0-5); Neutrophil # 1.23 X10^3/uL (2.7-7.7); Neutrophil % 35.5 % (47-70); Platelet Count 252 K/mm3 (150-450); RBC Distribution Width CV 14.2 % (11.6-14.6); RBC Distribution Width SD 52.8 fl (35.1-43.9); Red Blood Count 3.84 M/mm3 (4.2-5.4); White Blood Count 3.5 K/mm3 (4.4-11.0)
[2020-10-02 15:44] LABS: ALB/GLOB Ratio 1.3 RATIO (0.9-2.4); AST(SGOT) 66 U/L (15-37); Alanine Aminotransfer ALT/SGPT 100 U/L (13-56); Albumin, Serum 3.7 g/dL (3.2-5.0); Alkaline Phosphatase 122 U/L (45-117); Anion Gap 5 (5-15); BUN 18 mg/dL (7-18); BUN/Creat Ratio 23.5 RATIO (10-20); Chloride 113 mmol/L (98-107); Creatinine, Serum 0.77 mg/dL (0.55-1.02); EST Glomerular Filtration Rate 83 mL/min (>60); Est Glom Filt Rate - Afr Amer 100 mL/min (>60); Globulin 2.9 g/dL (2.2-4.2); Glucose 79 mg/dL (74-106); Potassium 3.9 mmol/L (3.5-5.1); Protein, Total 6.6 g/dL (6.4-8.2); Sodium Level 144 mmol/L (136-145)
== END ==
PROVIDERS: PCP Student in an Organized Health Care Education/Training Program; Referring Provider Internal Medicine Rheumatology; Visit Provider Internal Medicine Rheumatology
DX: L40.59 Other psoriatic arthropathy (principal); M79.7 Fibromyalgia; M17.11 Unilateral primary osteoarthritis, right knee; L40.8 Other psoriasis; K21.9 Gastro-esophageal reflux disease without esophagitis; M48.061 Spinal stenosis, lumbar region without neurogenic claudication; M48.02 Spinal stenosis, cervical region; K58.0 Irritable bowel syndrome with diarrhea; N32.81 Overactive bladder; F41.9 Anxiety disorder, unspecified; F32.89 Other specified depressive episodes; J45.909 Unspecified asthma, uncomplicated; Z98.84 Bariatric surgery status; Z79.899 Other long term (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 therapy
CPT/HCPCS: 36415; 80053; 85025

== ENCOUNTER 2020-10-20 17:53 | Inpatient (IN) | payer MEDICARE, OTHER, SELFPAY ==
[2020-10-20] VITALS (15 sets, daily range): BP systolic 97–142; BP diastolic 48–79; PULSE 63–85; RESP 16–18; TEMP 36.4–37.1; O2SAT 95–100; BMI 21.6; BMI 23.6
[2020-10-20] MEDS: Lactated Ringers 1,000 ML 100 ML IV ×3 (12:24→17:55)
[2020-10-20] MEDS: Cefazolin 2 GM in 0.9% Normal Saline 100 ML IV (13:32)
--- NOTE | 2020-10-20 13:41 | RAD_ITS ---
STUDY: X-RAY - THORACIC SPINE REASON FOR EXAM: Female, 54 years old. Hardware removal. TECHNIQUE: 5 fluoroscopic view(s) of the thoracic spine were obtained. COMPARISON: 07/15/16 FINDINGS: 5 fluoroscopic views of the thoracic spine were obtained as part of a hardware removal procedure. Correlation with the procedure report is recommended. RAD/Thoracic Spine 2 Views IMPRESSION: As above. Electronically Signed: Rajinder Grider, at 17:54 EST Tel , Service support ,
[2020-10-20] MEDS: THROMBIN (RECOMBINANT) 20,000 UNIT VIAL 20000 UNIT TOPICAL (14:20)
[2020-10-20] MEDS: Thrombin 5,000 IU Kit (PSA) 5,000 IU Vial 5000 IU (16:34)
--- NOTE | 2020-10-20 17:56 | PCM.OPRPT ---
Report of Operation Description of Surgical Findings:: REPORT OF OPERATION PREOPERATIVE DIAGNOSES: 1. Lumbar stenosis, spondylosis. 2. Chronic back pain. POSTOPERATIVE DIAGNOSES: 1. Lumbar stenosis, spondylosis. 2. Chronic back pain. PROCEDURE PERFORMED: 1. T9-10 bilateral laminectomies. 2. Explantation of spinal cord stimulator hardware lead and generator 3: Attempted dorsal column stimulator paddle lead placement. SURGEON: Milton Corey DO ANESTHESIA: General endotracheal anesthesia. IV FLUIDS: 2000 mL of crystalloid. ESTIMATED BLOOD LOSS: 100 mL. URINE OUTPUT: 200ml. STATEMENT OF MEDICAL NECESSITY: This patient is a 54-year old female with intractable back and leg pain. The patient previously underwent a spinal cord stimulator placement by Dr. Malone. However postoperatively the leads shifted. Dr. Malone attempted a revision of the spinal cord stimulator but could not get the leads to advance. The case was abandoned leaving one percutaneous permanent spinal cord stimulator lead along with the generator in place. She subsequently followed up with me in clinic where we discussed removing the current spinal cord stimulator hardware and implanting a paddle lead stimulator. The patient has opted for treatment of operative intervention, understanding the risks to include, damage to nerves, arteries and veins, possibility of continued pain, need for additional surgery, pulmonary embolism, heart attack, stroke, or . DESCRIPTION OF PROCEDURE: The patient was identified in the preoperative holding area. There, the patient received the preoperative IV antibotics and then transferred to the operating suite. Once in the operating suite, after general endotracheal anesthesia was established, the patient was transferred to the [facility] operating table in the prone position. All bony prominences were padded accordingly. The thoracolumbar spine was prepped and draped in standard surgical fashion. Incision was made over the thoracolumbar spine. An incision was centered over the T9-10 interlaminar space, taken down to the thoracic fascia. It was then divided and subperiosteal dissection was taken down to the level of the facet joints. Bilateral laminectomies were performed at the T9-10 interspace, with the lamina of T9, and T10 removed. The prior incisions from the previous spinal cord stimulator surgery were then reopened using a ten blade scalpel, one on the left posterior hip and one in the left mid lumbar region. The previously implanted spinal cord stimulator lead was then explanted as was the previously implanted spinal cord stimulator generator. At this point the paddle lead was attempted to be placed at T8. However, the spinal cord stimulator lead could not be placed in an appropriate position midline due to a very small spinal canal and adhesions that were present from prior surgery. Multiple attempts were made. It was then decided that further attempts would be unsafe and the case was abandoned. Both incisions were then irrigated, a subfascial drain was placed at the site of the laminectomy, and the incision was closed with #1 vicryl for the fascia, 2-0 vicryl for subcutaneous, and 2-0 nylon for skin. Sterile dressing was applied with 4 x 4, ABD, and tape. Sponge, instrument, and needle counts were correct at the end of the case. The patient was extubated, taken to PACU without incident.
--- NOTE | 2020-10-20 18:14 | PCM.PN.BLA ---
Progress Note The patient was seen and examined postoperatively in the PACU. She is doing well and resting comfortably. Her pain is well controlled and she has no complaints. Alert and oriented, no acute distress Abdomen soft and nontender Dressings clean dry and intact, drain in place and functioning Extremities neurovascularly intact without focal deficit, no tenderness or edema Okay to admit to floor when stable See orders STROKE Vital Signs/Narrative: Vital Signs Temp Pulse Resp BP Pulse Ox 10/20/20 18:00 82 18 116/78 100 10/20/20 17:45 83 18 114/79 100 10/20/20 17:39 97.6 F L 83 18 142/79 H 97
[2020-10-20] MEDS: Budesonide Respules 0.5 MG/2 ML AMPUL.NEB. INHALATION (22:00)
[2020-10-20] MEDS: Albuterol 2.5 MG/3 ML VIAL.NEB. INHALATION (22:00)
--- NOTE | 2020-10-20 22:38 | PCM.PN.HOSP ---
Reason for Visit: Medical management Subjective: Patient with multiple medical condition who is postop day 0 for T9-10 bilateral laminectomies; Explantation of spinal cord stimulator hardware lead and generator; and Attempted dorsal column stimulator paddle lead placement. Internal medicine service has been consulted for medical management. Patient complaining of nausea and dry heaving post surgery. She denies pain at her back. Vitals/I&O's: Vital Signs Temp Pulse Resp BP Pulse Ox 98.5 F 75 16 97/48 L 99 10/20/20 20:31 10/20/20 22:03 10/20/20 22:03 10/20/20 20:31 10/20/20 22:04 Oxygen Flow Rate (L/min) 2 Oxygen Delivery Method Nasal Cannula Weight: 68.492 kg Body Mass Index (BMI) 23.6 Intake and Output for Last 24 Hours 10/18/20 10/19/20 10/20/20 23:59 23:59 23:59 Intake Total 2110 / 2110 Output Total 530 / 530 Balance 1580 / 1580 General: Alert, Oriented x3, Cooperative, - - Patient was dry heaving at the time of taking history. HEENT: Atraumatic, PERRLA, EOMI, Normocephalic Neck: Supple, No JVD, Negative Carotid Bruits Lungs: Clear to auscultation, Normal air movement Cardiovascular: Regular rate, No murmurs Abdomen: Bowel Sounds Present, Soft, Non Tender Extremities: No edema, Capillary Refill Less than 3 Seconds, - - Dressing at the back dry and intact with SHAYLA. Sanguinous drainage in SHAYLA. Skin: No rashes, No breakdown Musculoskeletal: No Tenderness to Palpation of Joints or Extremities Neurological: Cranial nerves II-XII grossly intact Psych/Mental Status: Normal Affect, Appropriate Microbiology Past 72 Hours 10/19/20 11:05 Interface Orders SARS-CoV-2 Antigen (Rapid) - Final Current Medications Albuterol Sulfate (Albuterol 2.5 Mg/3 Ml Vial.Neb.) 2.5 mg INHALATION Q6H PRN PRN PRN Reason: Asthma Albuterol Sulfate (Albuterol 2.5 Mg/3 Ml Vial.Neb.) 2.5 mg INHALATION Q6HWA.RT [facility] Last Admin: 10/20/20 22:00 Dose: 2.5 mg Documented by: Baclofen (Baclofen 10 Mg Tablet) 10 mg PO DAILY [facility] Budesonide (Budesonide Respules 0.5 Mg/2 Ml Ampul.Neb.) 0.5 mg INHALATION Q12H.RT [facility] Last Admin: 10/20/20 22:00 Dose: 0.5 mg Documented by: Bupropion HCl (Bupropion (Sr) 150 Mg Tablet.Sa) 150 mg PO BID [facility] Calcium/Vitamin D (Calcium Carb/Vitamin D 1 Tablet Tablet) [facility] Docusate Sodium (Docusate Sodium 100 Mg Capsule) 100 mg PO BID PRN PRN Reason: Constipation Enteral Nutritional Formula (Ensure Surgery 237 Ml Liquid) 237 ml PO TIDCM [facility] Fluoxetine HCl (Fluoxetine 20 Mg Capsule) 60 mg PO DAILY [facility] Folic Acid (Folic Acid 1 Mg Tablet) [facility] Lactated Ringer's () 1,000 mls @ 100 mls/hr IV .Q10H [facility] Last Admin: 10/20/20 17:55 Dose: 100 mls/hr Documented by: Cefazolin Sodium () 1 gm in 50 mls @ 100 mls/hr IV Q8 [facility] Stop: 10/21/20 06:29 Lactobacillus Acidophilus (Lactobacillus Acidophilus) 1 tablet PO DAILY [facility] Magnesium Chloride (Magnesium Chloride 64 Mg Delay Rel.Tablet) 128 mg PO DAILY [facility] Methotrexate (Methotrexate 2.5 Mg Tablet) mg PO QWEEK [facility] Mirtazapine (Mirtazapine 15 Mg Tablet) 45 mg PO QHS [facility] Morphine Sulfate (Morphine 2 Mg/Ml Syringe) 2 - 4 mg IV Q4H PRN PRN PRN Reason: Pain Score 6-10 Morphine Sulfate (Morphine 4 Mg/Ml Syringe) 2 - 4 mg IV Q4H PRN PRN PRN Reason: Pain Score 6-10 Multivitamins/Minerals (Multivitamins,Ther W-Minerals Tablet) 1 tablet PO DAILYCM [facility] Non-Formulary Medication (Guselkumab [Tremfya]) 100 mg SQ X1 [facility] Non-Formulary Medication (Hydrocodone/Acetaminophen [Hydrocodone-Acetamin 7.5-325]) 1 ea PO PRN PRN PRN Reason: pain Non-Formulary Medication (Linaclotide) 290 mcg PO DAILY [facility] Ondansetron HCl (Ondansetron 4 Mg/2 Ml Vial) 4 mg IV Q8H PRN PRN PRN Reason: NAUSEA Potassium Chloride (Potassium Chloride 10 Meq Tablet) 10 meq PO DAILY [facility] Prednisone (Prednisone 10 Mg Tablet) 10 mg PO PRN PRN PRN Reason: flare ups/psoriatic arthriits Pregabalin (Pregabalin 75 Mg Capsule) 75 mg PO BID [facility] Rizatriptan Benzoate (Rizatriptan Benzoate 5 Mg Tablet) 5 mg PO DAILY PRN PRN PRN Reason: MIGRAINE SYMPTOMS Sodium Chloride (0.9% Saline Lock 10 Ml Syringe) 10 - 40 ml IV UD PRN PRN Reason: SALINE FLUSH Tolterodine Tartrate (Tolterodine Tartrate 2 Mg Cap.Sa) 2 mg PO DAILY [facility] Topiramate (Topiramate 100 Mg Tablet) 100 mg PO QHS [facility] STROKE Vital Signs/Narrative: Vital Signs Temp Pulse Resp BP Pulse Ox 10/20/20 22:04 99 10/20/20 22:03 75 16 10/20/20 20:31 98.5 F 74 16 97/48 L 98 10/20/20 19:34 98.7 F 74 16 106/67 96 10/20/20 19:10 98.4 F 85 18 129/75 H 99 10/20/20 19:00 81 18 117/65 98 10/20/20 18:45 85 18 109/68 99 Medical Necessity - Tobacco Use Smoking Status: Never smoker Assessment/Plan All Active Problems (Last Reviewed 02/09/19 @ 07:[address] Rick Whiting MD) Psoriasis (Acute) Insomnia (Acute) Anxiety (Acute) Depression (Acute) Sleep apnea (Acute) GERD (gastroesophageal reflux disease) (Acute) Non-healing surgical wound (Acute) Complication, postoperative infection (Acute) Open wound of back wall of thorax without penetration into thoracic cavity (Acute) Postoperative hematoma of subcutaneous tissue following dermatologic procedure (Acute) Postoperative seroma of subcutaneous tissue after dermatologic procedure (Acute) Patient 54-year old female with multiple medical condition and who is postop day 0 for T9-10 bilateral laminectomies; Explantation of spinal cord stimulator hardware lead and generator; and Attempted dorsal column stimulator paddle lead placement. Lumbar stenosis, spondylosis and chronic back pain s/p T9-10 bilateral laminectomies; Explantation of spinal cord stimulator hardware lead and generator; and Attempted dorsal column stimulator paddle lead placement On perioperative cefazolin and lactated Ringer's. On [place] and as needed morphine sulfate. Parameters placed for pain medication. Management per primary. On clear liquids. Compazine ordered. Increase frequency the patient can receive ordered IV Zofran. Obstructive sleep apnea Because of low oxygen saturation was placed on 2 L nasal cannula oxygen in water. Oxygen supplementation by nasal cannula continued. Continued. Reportedly she was on BiPAP but it has been a while since she uses at home. IBS On Linzess Psoriasis with psoriatic arthritis On home Guselkumab On methotrexate Hypokalemia Potassium supplementation BMP in a.m. Neuropathy: on pregabalin Depression/anxiety On Topamax and Prozac On buspirone Overactive bladder On Tolterodine DVT prophylaxis SHAISTA declan and SCD in place. OBSV E&M: 24721 Initial observation care L2
[2020-10-20] MEDS: proCHLORPERazine 10 MG/2 ML Vial 5 MG IV (22:52)
[2020-10-20] MEDS: Cefazolin 1 GM/50 ML BAG IV (22:52)
[2020-10-20] MEDS: Topiramate 100 MG Tablet PO (22:59)
[2020-10-20] MEDS: Mirtazapine 15 MG Tablet 45 MG PO (23:00)
[2020-10-20] MEDS: Pregabalin 75 MG Capsule PO (23:02)
[2020-10-21] VITALS (15 sets, daily range): BP systolic 89–133; BP diastolic 48–71; PULSE 57–98; RESP 16–21; TEMP 36.4–37.2; O2SAT 96–100
[2020-10-21] MEDS: buPROPion (SR) 150 MG Tablet.SA PO ×3 (00:44→22:02)
[2020-10-21] MEDS: Rizatriptan Benzoate 5 MG Tablet PO (01:51)
[2020-10-21] MEDS: Lactated Ringers 1,000 ML 100 ML IV ×3 (01:54→22:02)
--- NOTE | 2020-10-21 04:54 | PCM.PN.ORT ---
Subjective: The patient was seen and examined. She is doing very well. She has no complaints. Her pain is minimal. The nurse reports she was complaining of a headache. However she does not have a headache at this time. Alert and oriented x3, no acute distress Abdomen soft and nontender Dressings clean dry and intact, drain in place and functioning, output over the last shift has been about 50 cc Extremities are neurovascularly intact without focal deficit, no tenderness or edema Postop day 1 status post thoracic laminectomy and removal of spinal cord stimulator hardware Continue pain control, Tylenol as needed for headache Continue antibiotics for 2 doses postop, then okay to continue Okay to remove Perdomo this morning. Bladder scan after 4 hours if no urine output then straight cath as needed Up with assistance, physical therapy to evaluate Keep drain in place until output is less than 50 cc per shift for 3 consecutive shifts Plan for discharge home once drain is out - Physical Exam Vitals/I&O's: Vital Signs Temp Pulse Resp BP Pulse Ox 98.2 F 83 16 133/71 H 100 10/21/20 00:30 10/21/20 02:00 10/21/20 01:26 10/21/20 00:30 10/21/20 00:30 Oxygen Flow Rate (L/min) 2 Oxygen Delivery Method Nasal Cannula Weight: 151 lb Body Mass Index (BMI) 23.6 Intake and Output for Last 24 Hours 10/19/20 10/20/20 10/21/20 23:59 23:59 23:59 Intake Total 2160 / 2360 998.33 / 998.33 Output Total 530 / 730 200 / 200 Balance 1630 / 1630 798.33 / 798.33 General: Alert, Oriented x3 HEENT: Atraumatic Oral: Moist Mucosa Neck: Supple Lungs: Normal air movement Cardiovascular: Regular rate Abdomen: Soft Extremities: No edema, No Calf Tenderness Skin: No rashes Musculoskeletal: No Tenderness to Palpation of Joints or Extremities Neurological: Neuro grossly intact Psych/Mental Status: Normal Affect, Appropriate Microbiology Past 72 Hours 10/19/20 11:05 Interface Orders SARS-CoV-2 Antigen (Rapid) - Final Current Medications Hydrocodone Bitart/Acetaminophen (Hydrocodone Bitartrate/Apap 5/325 Tablet) 1 tablet PO Q6H PRN PRN PRN Reason: pain 4-5/10 Albuterol Sulfate (Albuterol 2.5 Mg/3 Ml Vial.Neb.) 2.5 mg INHALATION Q6H PRN PRN PRN Reason: Asthma Albuterol Sulfate (Albuterol 2.5 Mg/3 Ml Vial.Neb.) 2.5 mg INHALATION Q6HWA.RT [facility] Last Admin: 10/20/20 22:00 Dose: 2.5 mg Documented by: Baclofen (Baclofen 10 Mg Tablet) 10 mg PO DAILY [facility] Budesonide (Budesonide Respules 0.5 Mg/2 Ml Ampul.Neb.) 0.5 mg INHALATION Q12H.RT [facility] Last Admin: 10/20/20 22:00 Dose: 0.5 mg Documented by: Bupropion HCl (Bupropion (Sr) 150 Mg Tablet.Sa) 150 mg PO BID [facility] Last Admin: 10/21/20 00:44 Dose: 150 mg Documented by: Calcium/Vitamin D (Calcium Carb/Vitamin D 1 Tablet Tablet) 2 tablet PO DAILYCM [facility] Docusate Sodium (Docusate Sodium 100 Mg Capsule) 100 mg PO BID PRN PRN Reason: Constipation Enteral Nutritional Formula (Ensure Surgery 237 Ml Liquid) 237 ml PO TIDCM [facility] Fluoxetine HCl (Fluoxetine 20 Mg Capsule) 60 mg PO DAILY [facility] Folic Acid (Folic Acid 1 Mg Tablet) 1 mg PO DAILYCM [facility] Lactated Ringer's () 1,000 mls @ 100 mls/hr IV .Q10H [facility] Last Admin: 10/21/20 01:54 Dose: 100 mls/hr Documented by: Cefazolin Sodium () 1 gm in 50 mls @ 100 mls/hr IV Q8 [facility] Stop: 10/21/20 06:29 Last Infusion: 10/20/20 23:30 Dose: Infused Documented by: Lactobacillus Acidophilus (Lactobacillus Acidophilus) 1 tablet PO DAILY [facility] Magnesium Chloride (Magnesium Chloride 64 Mg Delay Rel.Tablet) 128 mg PO DAILY [facility] Methotrexate (Methotrexate 2.5 Mg Tablet) mg PO QWEEK [facility] Mirtazapine (Mirtazapine 15 Mg Tablet) 45 mg PO QHS [facility] Last Admin: 10/20/20 23:00 Dose: 45 mg Documented by: Morphine Sulfate (Morphine 2 Mg/Ml Syringe) 2 - 4 mg IV Q4H PRN PRN PRN Reason: Pain Score 6-10 Morphine Sulfate (Morphine 4 Mg/Ml Syringe) 2 - 4 mg IV Q4H PRN PRN PRN Reason: Pain Score 6-10 Multivitamins/Minerals (Multivitamins,Ther W-Minerals Tablet) [facility] Non-Formulary Medication (Linaclotide) 290 mcg PO DAILY [facility] Ondansetron HCl (Ondansetron 4 Mg/2 Ml Vial) 4 mg IV Q6H PRN PRN PRN Reason: NAUSEA Potassium Chloride (Potassium Chloride 10 Meq Tablet) 10 meq PO DAILY [facility] Pregabalin (Pregabalin 75 Mg Capsule) 75 mg PO BID [facility] Last Admin: 10/20/20 23:02 Dose: 75 mg Documented by: Prochlorperazine Edisylate (Prochlorperazine 10 Mg/2 Ml Vial) 5 mg IV Q6H PRN PRN PRN Reason: NAUSEA/VOMITING Rizatriptan Benzoate (Rizatriptan Benzoate 5 Mg Tablet) 5 mg PO DAILY PRN PRN PRN Reason: MIGRAINE SYMPTOMS Last Admin: 10/21/20 01:51 Dose: 5 mg Documented by: Sodium Chloride (0.9% Saline Lock 10 Ml Syringe) 10 - 40 ml IV UD PRN PRN Reason: SALINE FLUSH Tolterodine Tartrate (Tolterodine Tartrate 2 Mg Cap.Sa) 2 mg PO DAILY [facility] Topiramate (Topiramate 100 Mg Tablet) 100 mg PO QHS [facility] Last Admin: 10/20/20 22:59 Dose: 100 mg Documented by: Medical Necessity - Tobacco Use Smoking Status: Never smoker Assessment/Plan All Active Problems (Last Reviewed 02/09/19 @ 07:[address] Rick Whiting MD) Psoriasis (Acute) Insomnia (Acute) Anxiety (Acute) Depression (Acute) Sleep apnea (Acute) GERD (gastroesophageal reflux disease) (Acute) Non-healing surgical wound (Acute) Complication, postoperative infection (Acute) Open wound of back wall of thorax without penetration into thoracic cavity (Acute) Postoperative hematoma of subcutaneous tissue following dermatologic procedure (Acute) Postoperative seroma of subcutaneous tissue after dermatologic procedure (Acute)
--- NOTE | 2020-10-21 05:10 | NURSING ---
Dr holman in to see pt. Okay to remove the souza. Track output. if pt hasn't voided within 4 hours, bladder scan and call dr holman on his cell phone [phone]. [address] holman on his cell phone with any questions/concerns.
[2020-10-21] MEDS: Budesonide Respules 0.5 MG/2 ML AMPUL.NEB. INHALATION ×2 (06:45→18:43)
[2020-10-21] MEDS: Albuterol 2.5 MG/3 ML VIAL.NEB. INHALATION ×3 (06:45→18:44)
[2020-10-21] MEDS: Cefazolin 1 GM/50 ML BAG IV ×3 (06:55→22:01)
[2020-10-21] MEDS: Acetaminophen 325 MG Tablet PO (06:56)
[2020-10-21 07:43] LABS: Anion Gap 3 (5-15); BUN 10 mg/dL (7-18); BUN/Creat Ratio 15.1 RATIO (10-20); Calcium,Total 8.4 mg/dL (8.5-10.1); Chloride 110 mmol/L (98-107); Creatinine, Serum 0.66 mg/dL (0.55-1.02); EST Glomerular Filtration Rate 98 mL/min (>60); Est Glom Filt Rate - Afr Amer 119 mL/min (>60); Estimated Creatinine Clearance 93.66 ml/min; Glucose 77 mg/dL (74-106); Potassium 3.9 mmol/L (3.5-5.1); Sodium Level 143 mmol/L (136-145)
--- NOTE | 2020-10-21 07:49 | PN_ITS ---
Subjective: Patient seen and examined. Hospitalist service was consulted for medical management after patient had T9-T10 bilateral laminectomy with explantation of spinal cord stimulator hardware lead. She complains of a migraine headache today which improved with sumatriptan injections. Pain is well controlled. Reviewed symptoms otherwise negative. Vitals/I&O's: Vital Signs Temp Pulse Resp BP Pulse Ox 98.5 F 78 21 H 116/71 98 10/21/20 05:45 10/21/20 07:20 10/21/20 07:20 10/21/20 05:45 10/21/20 07:20 Oxygen Flow Rate (L/min) 1 Oxygen Delivery Method Nasal Cannula Weight: 151 lb Body Mass Index (BMI) 23.6 Intake and Output for Last 24 Hours 10/19/20 10/20/20 10/21/20 23:59 23:59 23:59 Intake Total 2160 / 2360 1048.33 / 1048.33 Output Total 530 / 730 1000 / 1000 Balance 1630 / 1630 48.33 / 48.33 General: Alert, Oriented x3, Cooperative, No apparent distress HEENT: Atraumatic, PERRLA, EOMI, Normocephalic Oral: Dry Mucosa Neck: Supple, No JVD, Negative Carotid Bruits Lungs: Clear to auscultation, Normal air movement, No rhonchi, No wheeze, No rales Cardiovascular: Regular rate, Regular Rhythm, Normal S1, Normal S2, No murmurs Abdomen: Bowel Sounds Present, Soft, Non Tender, Non-Distended, No Hepato- splenomegaly Extremities: No clubbing, No cyanosis, No edema, Capillary Refill Less than 3 Seconds Skin: No rashes, No breakdown Musculoskeletal: No Tenderness to Palpation of Joints or Extremities Lymphatic: No Cervical, Supraclavicular, or Inguinal Adenopathy Neurological: Cranial nerves II-XII grossly intact, Neuro grossly intact, Motor Exam 5/5 strength throughout Psych/Mental Status: Normal Affect, Appropriate, Alert and oriented to time, place, person, mood and affect Microbiology Past 72 Hours 10/19/20 11:05 Interface Orders SARS-CoV-2 Antigen (Rapid) - Final Laboratory Results 10/21/20 06:28: Sodium 143, Potassium 3.9, Chloride 110 H, Carbon Dioxide 30.0, Anion Gap 3 L, BUN 10, Creatinine 0.66, Estim Creat Clear Calc 93.66, Est GFR (MDRD) Af Amer 119, Est GFR (MDRD) Non-Af 98, BUN/Creatinine Ratio 15.1, Glucose 77, Calcium 8.4 L Current Medications Acetaminophen (Acetaminophen 325 Mg Tablet) 325 mg PO Q6H PRN PRN PRN Reason: HEADACHE Last Admin: 10/21/20 06:56 Dose: 325 mg Documented by: Hydrocodone Bitart/Acetaminophen (Hydrocodone Bitartrate/Apap 5/325 Tablet) 1 tablet PO Q6H PRN PRN PRN Reason: pain 4-5/10 Albuterol Sulfate (Albuterol 2.5 Mg/3 Ml Vial.Neb.) 2.5 mg INHALATION Q6H PRN PRN PRN Reason: Asthma Albuterol Sulfate (Albuterol 2.5 Mg/3 Ml Vial.Neb.) 2.5 mg INHALATION Q6HWA.RT [facility] Last Admin: 10/21/20 06:45 Dose: 2.5 mg Documented by: Baclofen (Baclofen 10 Mg Tablet) 10 mg PO DAILY [facility] Budesonide (Budesonide Respules 0.5 Mg/2 Ml Ampul.Neb.) 0.5 mg INHALATION Q12H.RT [facility] Last Admin: 10/21/20 06:45 Dose: 0.5 mg Documented by: Bupropion HCl (Bupropion (Sr) 150 Mg Tablet.Sa) 150 mg PO BID [facility] Last Admin: 10/21/20 00:44 Dose: 150 mg Documented by: Calcium/Vitamin D (Calcium Carb/Vitamin D 1 Tablet Tablet) 2 tablet PO DAILYCM [facility] Docusate Sodium (Docusate Sodium 100 Mg Capsule) 100 mg PO BID PRN PRN Reason: Constipation Enteral Nutritional Formula (Ensure Surgery 237 Ml Liquid) 237 ml PO TIDCM [facility] Fluoxetine HCl (Fluoxetine 20 Mg Capsule) 60 mg PO DAILY [facility] Folic Acid (Folic Acid 1 Mg Tablet) 1 mg PO DAILYCM [facility] Lactated Ringer's () 1,000 mls @ 100 mls/hr IV .Q10H [facility] Last Admin: 10/21/20 01:54 Dose: 100 mls/hr Documented by: Lactobacillus Acidophilus (Lactobacillus Acidophilus) 1 tablet PO DAILY [facility] Magnesium Chloride (Magnesium Chloride 64 Mg Delay Rel.Tablet) 128 mg PO DAILY [facility] Methotrexate (Methotrexate 2.5 Mg Tablet) mg PO QWEEK [facility] Mirtazapine (Mirtazapine 15 Mg Tablet) 45 mg PO QHS [facility] Last Admin: 10/20/20 23:00 Dose: 45 mg Documented by: Morphine Sulfate (Morphine 2 Mg/Ml Syringe) 2 - 4 mg IV Q4H PRN PRN PRN Reason: Pain Score 6-10 Morphine Sulfate (Morphine 4 Mg/Ml Syringe) 2 - 4 mg IV Q4H PRN PRN PRN Reason: Pain Score 6-10 Multivitamins/Minerals (Multivitamins,Ther W-Minerals Tablet) [facility] Non-Formulary Medication (Linaclotide) 290 mcg PO DAILY [facility] Ondansetron HCl (Ondansetron 4 Mg/2 Ml Vial) 4 mg IV Q6H PRN PRN PRN Reason: NAUSEA Potassium Chloride (Potassium Chloride 10 Meq Tablet) 10 meq PO DAILY [facility] Pregabalin (Pregabalin 75 Mg Capsule) 75 mg PO BID [facility] Last Admin: 10/20/20 23:02 Dose: 75 mg Documented by: Prochlorperazine Edisylate (Prochlorperazine 10 Mg/2 Ml Vial) 5 mg IV Q6H PRN PRN PRN Reason: NAUSEA/VOMITING Rizatriptan Benzoate (Rizatriptan Benzoate 5 Mg Tablet) 5 mg PO DAILY PRN PRN PRN Reason: MIGRAINE SYMPTOMS Last Admin: 10/21/20 01:51 Dose: 5 mg Documented by: Sodium Chloride (0.9% Saline Lock 10 Ml Syringe) 10 - 40 ml IV UD PRN PRN Reason: SALINE FLUSH Tolterodine Tartrate (Tolterodine Tartrate 2 Mg Cap.Sa) 2 mg PO DAILY [facility] Topiramate (Topiramate 100 Mg Tablet) 100 mg PO QHS [facility] Last Admin: 10/20/20 22:59 Dose: 100 mg Documented by: STROKE Vital Signs/Narrative: Vital Signs Temp Pulse Resp BP Pulse Ox 10/21/20 07:20 78 21 H 98 10/21/20 05:59 88 10/21/20 05:45 98.5 F 80 20 H 116/71 99 Medical Necessity - Tobacco Use Smoking Status: Never smoker Assessment/Plan All Active Problems (Last Reviewed 02/09/19 @ 07:[address] Rick Whiting MD) Psoriasis (Acute) Insomnia (Acute) Anxiety (Acute) Depression (Acute) Sleep apnea (Acute) GERD (gastroesophageal reflux disease) (Acute) Non-healing surgical wound (Acute) Complication, postoperative infection (Acute) Open wound of back wall of thorax without penetration into thoracic cavity (Acute) Postoperative hematoma of subcutaneous tissue following dermatologic procedure (Acute) Postoperative seroma of subcutaneous tissue after dermatologic procedure (Acute) #Lumbar stenosis s/p T9-T10 bilateral laminectomy and explantation of spinal cord stimulator hardware lead * Today postop day 1. Pain is well controlled. On [place] and morphine as needed. * PT OT on board. Fall precautions. * Spine surgery on board. #Migraines: on imitrex prn. #OLGA: currently on 1L of oxygen. was hypoxic after surgery,. but this has now resolved. Breathing treatment prn #Psoriatic arthritis: Methotrexate and guselkumab #Irritable bowel syndrome: on Linzess. #Hypokalemia; resolved # Depression and anziety: on prozac and topamax, as well as buspirone # Overactive bladder: on tolterodine. #History of peripheral neuropathy: on pregabalin [facility] 33543 Subs Hosp L2
[2020-10-21] MEDS: FLUoxetine 20 MG Capsule 60 MG PO (08:47)
[2020-10-21] MEDS: Multivitamins,Ther W-Minerals Tablet 1 TABLET PO (08:48)
[2020-10-21] MEDS: Calcium Carb/Vitamin D 1 TABLET Tablet 2 TABLET PO (08:48)
[2020-10-21] MEDS: Tolterodine Tartrate 2 MG CAP.SA PO (08:48)
[2020-10-21] MEDS: Magnesium Chloride 64 MG Delay Rel.Tablet 128 MG PO (08:49)
[2020-10-21] MEDS: Pregabalin 75 MG Capsule PO ×2 (08:53→22:02)
[2020-10-21] MEDS: Ensure Surgery 237 ML LIQUID PO ×2 (08:53→16:56)
[2020-10-21] MEDS: Baclofen 10 MG Tablet PO (08:53)
[2020-10-21] MEDS: HYDROcodone Bitartrate/Apap 5/325 Tablet PO ×3 (09:00→23:52)
--- NOTE | 2020-10-21 15:30 | CASEMGMT ---
RN RUPAL DOCUMENT CONTROL SPECIALIST CM to room to meet with patient for initial transition planning/care coordination assessment. RN RUPAL introduced self and role at [facility]. Pt voices understanding and consents to assessment at this time. Pt resting in bed in no distress at this time. Pt is A/O at this time and answers all questions appropriately. Care providers, pharmacy, and demographics verified/updated at this time. PCP: Dr Acevedo Specialists: Dr Corey--ortho, Dr Gregg--neurologist in [place], Dr Torres--podiatry, Dr Aquino-arthritis, Dr Ibrahim-pain mgmt, Dr Ortiz--pulmonology, Dr Daisha Bowen--cigarette lighter repairer/[facility], Dr Gray--GI, Dr Painting--Sign Maintenance (has appt January 22), Dr Gregg-Neurologist/[place], Dr Phillips--Gastric bypass, Dr Martinez--ENT, Dr Mata--dermatology. Was seeing Dr Fitzpatrick for sleep apnea, but switching to Dr Shelley, counselor @ [facility]. Preferred Pharmacy: [facility] Retail Insurance: [facility], [facility] Prescription Benefit: yes Living Will/HPOA: Has LW and Healthcare POA, who is her , Inocente LNOK: , Inocente. Living Arrangements: Lives w/her , Inocente, in one-story home w/ramp entrance. Was Independent w/ADL's prior to surgery. /pt share home mgmt tasks. Pt states is willing/able to assist when he is home but he leaves for work @ 0500 and is gone most of the day. He works [employer] this upcoming week and then will be off of work until Nov 06. Transportation: DME: States has the following DME: shower chair, hand held shower, walker, BIPAP, nebulizer Pt states no need for further DME at this time. HHC/SNF: No hx of SNF. Has had HHC in the past. Pt currently goes for OP therapy @ [place] for pelvic floor dysfunction. Pt is not sure if she feels safe to return home, as she will be alone during the day M/Tues/Wed, while is at work all day. She states does not have anyone else available to come stay w/her to help while he is gone. She reports having a lot of pain and having difficulty getting up. PT eval has been completed. See report Pt called while IRMA GOLDSMITH in room to discuss discharge planning. She states she feels she may need SNF @ d/c to help recover d/t the pain and she does not know if she will be able to care for herself. Also discussed option of HHC and OP therapy. Pt states she wants to talk things over with her , see how she does thru the night/how she feels tomorrow, talk things over with MD, and will decide then. Pt made aware, if she does decide to go home and if she would be ready for d/c tomorrow, that HHC or OP therapy can be set up through her PCP. Pt voices understanding. She was given list of local HHC agencies. SW, Mary, made aware of possible need of SNF as well. PLAN: TBD: SNF vs Home w/HHC vs OP therapy. Pt wants to see how she is feeling tomorrow and talk with her and MD re: discharge plan. Marlyn GRAHAM RN, CM
[2020-10-21] MEDS: Topiramate 100 MG Tablet PO (22:01)
[2020-10-21] MEDS: Mirtazapine 15 MG Tablet 45 MG PO (22:02)
[2020-10-22] VITALS (9 sets, daily range): BP systolic 105–116; BP diastolic 49–62; PULSE 66–96; RESP 16–21; TEMP 36.7–37.3; O2SAT 95–98
[2020-10-22] MEDS: Cefazolin 1 GM/50 ML BAG IV ×2 (06:13→13:19)
[2020-10-22] MEDS: HYDROcodone Bitartrate/Apap 5/325 Tablet PO ×2 (06:13→12:21)
--- NOTE | 2020-10-22 07:42 | PN_ITS ---
Subjective: Patient seen and examined. She has no complaints. Pain is well controlled. Review of systems is otherwise negative. She remains hemodynamically stable. Vitals/I&O's: Vital Signs Temp Pulse Resp BP Pulse Ox 98.7 F 88 18 116/62 97 10/22/20 04:20 10/22/20 07:23 10/22/20 04:20 10/22/20 04:20 10/22/20 04:20 Oxygen Flow Rate (L/min) 1 Oxygen Delivery Method Room Air Weight: 151 lb Body Mass Index (BMI) 23.6 Intake and Output for Last 24 Hours 10/20/20 10/21/20 10/22/20 23:59 23:59 23:59 Intake Total 2160 / 2360 3835.00 / 3835.00 820 / 820 Output Total 530 / 730 2935 / 2935 Balance 1630 / 1630 900.00 / 900.00 820 / 820 General: Alert, Oriented x3, Cooperative, No apparent distress HEENT: Atraumatic, PERRLA, EOMI, Normocephalic Oral: Dry Mucosa Neck: Supple, No JVD, Negative Carotid Bruits Lungs: Clear to auscultation, Normal air movement, No rhonchi, No wheeze, No rales Cardiovascular: Regular rate, Regular Rhythm, Normal S1, Normal S2, No murmurs Abdomen: Bowel Sounds Present, Soft, Non Tender, Non-Distended, No Hepato- splenomegaly Extremities: No clubbing, No cyanosis, No edema, Capillary Refill Less than 3 Seconds Skin: No rashes, No breakdown Musculoskeletal: No Tenderness to Palpation of Joints or Extremities Lymphatic: No Cervical, Supraclavicular, or Inguinal Adenopathy Neurological: Cranial nerves II-XII grossly intact, Neuro grossly intact, Motor Exam 5/5 strength throughout Psych/Mental Status: Normal Affect, Appropriate, Alert and oriented to time, place, person, mood and affect Microbiology Past 72 Hours 10/19/20 11:05 Interface Orders SARS-CoV-2 Antigen (Rapid) - Final Laboratory Results 10/21/20 06:28: Sodium 143, Potassium 3.9, Chloride 110 H, Carbon Dioxide 30.0, Anion Gap 3 L, BUN 10, Creatinine 0.66, Estim Creat Clear Calc 93.66, Est GFR (MDRD) Af Amer 119, Est GFR (MDRD) Non-Af 98, BUN/Creatinine Ratio 15.1, Glucose 77, Calcium 8.4 L Current Medications Acetaminophen (Acetaminophen 325 Mg Tablet) 325 mg PO Q6H PRN PRN PRN Reason: HEADACHE Last Admin: 10/21/20 06:56 Dose: 325 mg Documented by: Hydrocodone Bitart/Acetaminophen (Hydrocodone Bitartrate/Apap 5/325 Tablet) 1 tablet PO Q6H PRN PRN PRN Reason: pain 4-5/10 Last Admin: 10/22/20 06:13 Dose: 1 tablet Documented by: Albuterol Sulfate (Albuterol 2.5 Mg/3 Ml Vial.Neb.) 2.5 mg INHALATION Q6H PRN PRN PRN Reason: Asthma Albuterol Sulfate (Albuterol 2.5 Mg/3 Ml Vial.Neb.) 2.5 mg INHALATION Q6HWA.RT [facility] Last Admin: 10/21/20 18:44 Dose: 2.5 mg Documented by: Baclofen (Baclofen 10 Mg Tablet) 10 mg PO DAILY [facility] Last Admin: 10/21/20 08:53 Dose: 10 mg Documented by: Budesonide (Budesonide Respules 0.5 Mg/2 Ml Ampul.Neb.) 0.5 mg INHALATION Q12H.RT [facility] Last Admin: 10/21/20 18:43 Dose: 0.5 mg Documented by: Bupropion HCl (Bupropion (Sr) 150 Mg Tablet.Sa) 150 mg PO BID [facility] Last Admin: 10/21/20 22:02 Dose: 150 mg Documented by: Calcium/Vitamin D (Calcium Carb/Vitamin D 1 Tablet Tablet) 2 tablet PO DAILYCM [facility] Last Admin: 10/21/20 08:48 Dose: 2 tablet Documented by: Docusate Sodium (Docusate Sodium 100 Mg Capsule) 100 mg PO BID PRN PRN Reason: Constipation Enteral Nutritional Formula (Ensure Surgery 237 Ml Liquid) 237 ml PO TIDCM [facility] Last Admin: 10/21/20 16:56 Dose: 237 ml Documented by: Fluoxetine HCl (Fluoxetine 20 Mg Capsule) 60 mg PO DAILY [facility] Last Admin: 10/21/20 08:47 Dose: 60 mg Documented by: Lactated Ringer's () 1,000 mls @ 100 mls/hr IV .Q10H [facility] Last Infusion: 10/22/20 06:43 Dose: 100 mls/hr Documented by: Cefazolin Sodium () 1 gm in 50 mls @ 100 mls/hr IV Q8 [facility] Last Infusion: 10/22/20 06:43 Dose: Infused Documented by: Lactobacillus Acidophilus (Lactobacillus Acidophilus) 1 tablet PO DAILY [facility] Last Admin: 10/21/20 08:48 Dose: 1 tablet Documented by: Magnesium Chloride (Magnesium Chloride 64 Mg Delay Rel.Tablet) 128 mg PO DAILY [facility] Last Admin: 10/21/20 08:49 Dose: 128 mg Documented by: Methotrexate (Methotrexate 2.5 Mg Tablet) mg PO QWEEK [facility] Mirtazapine (Mirtazapine 15 Mg Tablet) 45 mg PO QHS [facility] Last Admin: 10/21/20 22:02 Dose: 45 mg Documented by: Morphine Sulfate (Morphine 2 Mg/Ml Syringe) 2 - 4 mg IV Q4H PRN PRN PRN Reason: Pain Score 6-10 Morphine Sulfate (Morphine 4 Mg/Ml Syringe) 2 - 4 mg IV Q4H PRN PRN PRN Reason: Pain Score 6-10 Multivitamins/Minerals ([facility]itamins,Ther W[facility]) [facility] Last Admin: 10/21/20 08:48 Dose: 1 tablet Documented by: Non-Formulary Medication (Linaclotide) 290 mcg PO DAILY [facility] Ondansetron HCl (Ondansetron 4 Mg/2 Ml Vial) 4 mg IV Q6H PRN PRN PRN Reason: NAUSEA Potassium Chloride (Potassium Chloride 10 Meq Tablet) 10 meq PO DAILY [facility] Last Admin: 10/21/20 08:48 Dose: 10 meq Documented by: Pregabalin (Pregabalin 75 Mg Capsule) 75 mg PO BID [facility] Last Admin: 10/21/20 22:02 Dose: 75 mg Documented by: Prochlorperazine Edisylate (Prochlorperazine 10 Mg/2 Ml Vial) 5 mg IV Q6H PRN PRN PRN Reason: NAUSEA/VOMITING Rizatriptan Benzoate (Rizatriptan Benzoate 5 Mg Tablet) 5 mg PO DAILY PRN PRN PRN Reason: MIGRAINE SYMPTOMS Last Admin: 10/21/20 01:51 Dose: 5 mg Documented by: Sodium Chloride (0.9% Saline Lock 10 Ml Syringe) 10 - 40 ml IV UD PRN PRN Reason: SALINE FLUSH Tolterodine Tartrate (Tolterodine Tartrate 2 Mg Cap.Sa) 2 mg PO DAILY [facility] Last Admin: 10/21/20 08:48 Dose: 2 mg Documented by: Topiramate (Topiramate 100 Mg Tablet) 100 mg PO QHS [facility] Last Admin: 10/21/20 22:01 Dose: 100 mg Documented by: STROKE Vital Signs/Narrative: Vital Signs Temp Pulse Resp BP Pulse Ox 10/22/20 07:23 88 10/22/20 04:42 79 10/22/20 04:20 98.7 F 66 18 116/62 97 Medical Necessity - Tobacco Use Smoking Status: Never smoker Assessment/Plan All Active Problems (Last Reviewed 02/09/19 @ 07:[address] Rick Whiting MD) Psoriasis (Acute) Insomnia (Acute) Anxiety (Acute) Depression (Acute) Sleep apnea (Acute) GERD (gastroesophageal reflux disease) (Acute) Non-healing surgical wound (Acute) Complication, postoperative infection (Acute) Open wound of back wall of thorax without penetration into thoracic cavity (Acute) Postoperative hematoma of subcutaneous tissue following dermatologic procedure (Acute) Postoperative seroma of subcutaneous tissue after dermatologic procedure (Acute) #Lumbar stenosis s/p T9-T10 bilateral laminectomy and explantation of spinal cord stimulator hardware lead * Today postop day 2. Pain is well controlled. On [place] and morphine as needed. * PT OT on board. Fall precautions. * Spine surgery on board. #Migraines: on imitrex prn. #OLGA: now on room air. was hypoxic after surgery,. but this has now resolved. Breathing treatment prn #Psoriatic arthritis: Methotrexate and guselkumab #Irritable bowel syndrome: on Linzess. #Hypokalemia; resolved # Depression and anziety: on prozac and topamax, as well as buspirone # Overactive bladder: on tolterodine. #History of peripheral neuropathy: on pregabalin DVT prophylaxis: SCDs Inpatient E&M: [id number] [facility] Hosp L2
[2020-10-22 07:49] LABS: Absolute Lymphocyte Count 1.28 X10^3/uL (0.83-4.51); Absolute Neutrophil Count 5.6 X10^3/uL (2.0-7.7); Basophil# 0.03 X10^3/uL; Basophil% 0.4 % (0-1); Eosinophil# 0.14 X10^3/uL; Eosinophils% 1.8 % (0-5); Hematocrit 32.4 % (37-47); Hemoglobin 10.2 g/dL (12.0-15.0); Lymphocyte # 1.28 X10^3/ul (4.0); Lymphocyte % 16.6 % (19-41); Mean Corp Hgb Conc 31.5 g/dL (32-36); Mean Corpuscular Hgb 31.9 pg (27.0-32.0); Mean Corpuscular Volume 101.3 fL (81-99); Mean Platelet Vol. 10.2 fl (6.2-12.0); Monocyte# 0.63 X10^3/uL; Monocyte% 8.2 % (0-10); NRBC Flagged by Analyzer 0 % (0-5); Neutrophil # 5.61 X10^3/uL (2.7-7.7); Neutrophil % 72.7 % (47-70); Platelet Count 228 K/mm3 (150-450); RBC Distribution Width CV 14.2 % (11.6-14.6); RBC Distribution Width SD 52.2 fl (35.1-43.9); White Blood Count 7.7 K/mm3 (4.4-11.0)
[2020-10-22 08:15] LABS: Anion Gap 4 (5-15); BUN 13 mg/dL (7-18); BUN/Creat Ratio 21.1 RATIO (10-20); Calcium,Total 8.5 mg/dL (8.5-10.1); Chloride 113 mmol/L (98-107); Creatinine, Serum 0.62 mg/dL (0.55-1.02); EST Glomerular Filtration Rate 106 mL/min (>60); Est Glom Filt Rate - Afr Amer 129 mL/min (>60); Glucose 93 mg/dL (74-106); Sodium Level 143 mmol/L (136-145)
[2020-10-22] MEDS: Acetaminophen 325 MG Tablet PO (08:59)
[2020-10-22] MEDS: Morphine 2 MG/ML Syringe IV (08:59)
[2020-10-22] MEDS: buPROPion (SR) 150 MG Tablet.SA PO (09:00)
[2020-10-22] MEDS: Magnesium Chloride 64 MG Delay Rel.Tablet 128 MG PO (09:00)
[2020-10-22] MEDS: Tolterodine Tartrate 2 MG CAP.SA PO (09:00)
[2020-10-22] MEDS: Baclofen 10 MG Tablet PO (09:00)
[2020-10-22] MEDS: Pregabalin 75 MG Capsule PO (09:00)
[2020-10-22] MEDS: FLUoxetine 20 MG Capsule 60 MG PO (09:00)
[2020-10-22] MEDS: Multivitamins,Ther W-Minerals Tablet 1 TABLET PO (09:01)
[2020-10-22] MEDS: Calcium Carb/Vitamin D 1 TABLET Tablet 2 TABLET PO (09:01)
[2020-10-22] MEDS: Lactated Ringers 1,000 ML 100 ML IV (09:06)
[2020-10-22] MEDS: Budesonide Respules 0.5 MG/2 ML AMPUL.NEB. INHALATION (11:05)
[2020-10-22] MEDS: Albuterol 2.5 MG/3 ML VIAL.NEB. INHALATION (11:05)
[2020-10-22] MEDS: Ensure Surgery 237 ML LIQUID PO ×2 (11:34→16:29)
[2020-10-22] MEDS: Morphine 4 MG/ML Syringe IV (13:22)
--- NOTE | 2020-10-22 17:00 | PCM.DC.ORTHO ---
Discharge Diet: No Restrictions Discharge Activity: Return to Normal Activity May resume sexual activity in: No Restrictions Weight Bearing Status: Weight bearing as tolerated Call your doctor if your incision/area has: Continuous Slow Oozing, Sudden Increased Bleeding, Increased Pain/ Swelling, Increased Redness, Foul Smelling Discharge, Swelling at the incision site Call your doctor if you observe: Fever of 101 or Higher, Coldness, Increased Pain, Numbness or Tingling, Change in Color, Inability to urinate, Inability to have a bowel movement, Using more than one pad per hour, Dizziness, Fainting spells, Swelling in the ankles, Chest pain, Prolonged hiccoughing, Increased palpitations (irregular heartbeat), Calf discomfort, Uncontrolled pain Change Dressing in (Days):: 1 - daily dressing changes with iodine to incisions Cleanse incision/area with: Do not get Incision Wet Additional Instructions: Do not take any blood thinners, aspirin, or anti-inflammatories as they may cause bleeding. Allergies/Adverse Reactions: Allergies nabumetone Allergy (Verified 10/20/20 11:57) Hives thimerosal Allergy (Verified 10/20/20 11:57) Other PER ALLERGY TESTING naproxen [From Naprosyn] Adverse Reaction (Verified 10/20/20 11:57) Other oxycodone HCl [From Percocet] Adverse Reaction (Verified 10/20/20 11:57) Other birds Allergy (Uncoded 10/20/20 11:57) Other dust Allergy (Uncoded 10/20/20 11:57) PT UNSURE OF REACTION other molds Allergy (Uncoded 10/20/20 11:57) Other seasonal Allergy (Uncoded 10/20/20 11:57) Other COWS Adverse Reaction (Uncoded 10/20/20 11:57) Other Medications to take at Discharge Albuterol Aerosols [Ventolin Aerosols] 2.5 mg INHALATION Q6H PRN PRN 09/22/17 Baclofen [Lioresal] 10 mg PO DAILY 09/22/17 Econazole [Spectazole] 1 applic TOPICAL DAILY 09/22/17 Fluoxetine [Prozac] 60 mg PO DAILY 09/22/17 Linaclotide [Linzess] 290 mcg PO DAILY 09/22/17 Pregabalin [Lyrica] 75 mg PO BID 09/22/17 buPROPion SR [Wellbutrin SR (150mg tablets)] 150 mg PO BID 09/22/17 Lactobacillus Combo No.11 [Probiotic] 1 ea PO DAILY #60 cap.sprink 11/29/17 omega-3 fatty acids 1,000 mg capsule 1,000 mg PO DAILY 11/30/18 Budesonide/Formoterol 160/4.5 [Symbicort 160/4.5 Mcg Inhaler (SP)] 2 puff INHALATION BID 02/04/19 Folic Acid 0.8 mg PO DAILY 02/04/19 Fesoterodine Fumarate [Toviaz] 4 mg PO DAILY 05/04/20 Mirtazapine 45 mg PO QHS 05/04/20 Multivitamin with Minerals [Multiple Vitamin] 1 ea PO DAILY 05/04/20 Potassium Chloride 10 meq PO DAILY 05/04/20 Sumatriptan Succinate [Imitrex] 25 mg PO DAILY PRN 05/04/20 Topiramate 100 mg PO QHS 05/04/20 Biotin 1 mg PO DAILY 10/06/20 Calcium Carbonate/Vitamin D3 [Calcium 500 mg-Vit D3 600 Unit] 2 ea PO DAILY 10/06/20 Docusate Sodium [Colace] 100 mg PO BID PRN 10/06/20 Hydrocodone/Acetaminophen [Hydrocodone-Acetamin 7.5-325] 1 ea PO Q6H PRN PRN 10/06/20 Magnesium Oxide [Magnesium] 400 mg PO DAILY 10/06/20 Smz/Tmp Ds [Bactrim Ds] 1 tab PO BID #20 tab 10/20/20 The following prescriptions were given: Smz/Tmp Ds [Bactrim Ds] 1 tab PO BID #20 tab Transmission Status: Received by [facility] Primary Care Physician: Everton Acevedo DO [Primary Care Provider] - Test Results: Test results from this visit will be discussed in further detail at your follow-up appointment, if applicable. Please Follow Up With: Yomi Corey DO When: 3 weeks Proposed Discharge Date: 10/22/20
--- NOTE | 2020-10-22 17:04 | PCM.DC.SUM ---
Discharge Date and Diagnosis Date of Admission: 05/12/20 Date of Discharge: 10/22/20 - Primary Discharge Diagnosis Acute Problems: Hardware removal of spinal cord stimulator, thoracic laminectomy at T9-10, attempted implantation of permanent spinal cord stimulator. - Secondary Discharge Diagnosis Chronic Problems: Chronic Problems (Last Reviewed 02/09/19 @ 07:[address] 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 Summary of Care Provided: The patient is a 54 year old F [] who was admitted on 10/20/2020. On that date she underwent hardware removal of previous spinal cord stimulator with thoracic 9/10 laminectomy and attempted implantation of permanent spinal cord stimulator. The permanent stimulator was not able to be implanted. A drain was placed postoperatively and she was admitted to the floor. She progressed well. No medical issues arose. She was mobilizing well with therapy and her pain was controlled. On 10/22/2020 the drain output decreased to 0 and the drain was removed and the patient was discharged home. - Physical Exam Vitals/I&O's: Vital Signs Temp Pulse Resp BP Pulse Ox 98.1 F 89 16 109/49 L 97 10/22/20 14:25 10/22/20 15:34 10/22/20 14:25 10/22/20 14:25 10/22/20 14:25 Oxygen Flow Rate (L/min) 1 Oxygen Delivery Method Room Air Weight: 151 lb Body Mass Index (BMI) 23.6 Intake and Output for Last 24 Hours 10/20/20 10/21/20 10/22/20 23:59 23:59 23:59 Intake Total 2160 / 2360 3835.00 / 3835.00 2196.67 / 2196.67 Output Total 530 / 730 2935 / 2935 410 / 410 Balance 1630 / 1630 900.00 / 900.00 1786.67 / 1786.67 General: Alert, Oriented x3 HEENT: Atraumatic, EOMI Oral: Moist Mucosa Neck: Supple Lungs: Normal air movement Cardiovascular: Regular rate Abdomen: Soft, Non Tender Extremities: No clubbing, No edema, Capillary Refill Less than 3 Seconds, No Calf Tenderness Skin: No rashes, No breakdown Musculoskeletal: No Tenderness to Palpation of Joints or Extremities Neurological: Cranial nerves II-XII grossly intact, Deep Tendon Reflexes 2+/4 and Symmetrical, Neuro grossly intact, Motor Exam 5/5 strength throughout Psych/Mental Status: Normal Affect, Appropriate Microbiology Past 72 Hours 10/19/20 11:05 Interface Orders SARS-CoV-2 Antigen (Rapid) - Final Laboratory Results 10/22/20 07:00: WBC 7.7, RBC 3.20 L, Hgb 10.2 L, Hct 32.4 L, MCV 101.3 H, MCH 31.9, MCHC 31.5 L, RDW Std Deviation 52.2 H, RDW Coeff of Marquise 14.2, Plt Count 228, MPV 10.2, Immature Gran % (Auto) 0.300, Neut % (Auto) 72.7 H, Lymph % (Auto) 16.6 L, [place] % (Auto) 8.2, Eos % (Auto) 1.8, Baso % (Auto) 0.4, Absolute Neuts (auto) 5.6, Absolute Lymphs (auto) 1.28, Nucleated RBC % 0 10/22/20 07:00: Sodium 143, Potassium 4.0, Chloride 113 H, Carbon Dioxide 26.0, Anion Gap 4 L, BUN 13, Creatinine 0.62, Estim Creat Clear Calc 99.70, Est GFR (MDRD) Af Amer 129, Est GFR (MDRD) Non-Af 106, BUN/Creatinine Ratio 21.1 H, Glucose 93, Calcium 8.5 Current Medications Acetaminophen (Acetaminophen 325 Mg Tablet) 325 mg PO Q6H PRN PRN PRN Reason: HEADACHE Last Admin: 10/22/20 08:59 Dose: 325 mg Documented by: Hydrocodone Bitart/Acetaminophen (Hydrocodone Bitartrate/Apap 5/325 Tablet) 1 tablet PO Q6H PRN PRN PRN Reason: pain 4-5/10 Last Admin: 10/22/20 12:21 Dose: 1 tablet Documented by: Albuterol Sulfate (Albuterol 2.5 Mg/3 Ml Vial.Neb.) 2.5 mg INHALATION Q6H PRN PRN PRN Reason: Asthma Albuterol Sulfate (Albuterol 2.5 Mg/3 Ml Vial.Neb.) 2.5 mg INHALATION Q6HWA.RT [facility] Last Admin: 10/22/20 11:05 Dose: 2.5 mg Documented by: Baclofen (Baclofen 10 Mg Tablet) 10 mg PO DAILY [facility] Last Admin: 10/22/20 09:00 Dose: 10 mg Documented by: Budesonide (Budesonide Respules 0.5 Mg/2 Ml Ampul.Neb.) 0.5 mg INHALATION Q12H.RT [facility] Last Admin: 10/22/20 11:05 Dose: 0.5 mg Documented by: Bupropion HCl (Bupropion (Sr) 150 Mg Tablet.Sa) 150 mg PO BID [facility] Last Admin: 10/22/20 09:00 Dose: 150 mg Documented by: Calcium/Vitamin D (Calcium Carb/Vitamin D 1 Tablet Tablet) 2 tablet PO DAILYCM [facility] Last Admin: 10/22/20 09:01 Dose: 2 tablet Documented by: Docusate Sodium (Docusate Sodium 100 Mg Capsule) 100 mg PO BID PRN PRN Reason: Constipation Enteral Nutritional Formula (Ensure Surgery 237 Ml Liquid) 237 ml PO TIDCM [facility] Last Admin: 10/22/20 16:29 Dose: 237 ml Documented by: Fluoxetine HCl (Fluoxetine 20 Mg Capsule) 60 mg PO DAILY [facility] Last Admin: 10/22/20 09:00 Dose: 60 mg Documented by: Lactated Ringer's () 1,000 mls @ 100 mls/hr IV .Q10H [facility] Last Admin: 10/22/20 17:01 Dose: Not Given Documented by: Cefazolin Sodium () 1 gm in 50 mls @ 100 mls/hr IV Q8 [facility] Last Infusion: 10/22/20 13:50 Dose: Infused Documented by: Lactobacillus Acidophilus (Lactobacillus Acidophilus) 1 tablet PO DAILY [facility] Last Admin: 10/22/20 09:01 Dose: 1 tablet Documented by: Magnesium Chloride (Magnesium Chloride 64 Mg Delay Rel.Tablet) 128 mg PO DAILY [facility] Last Admin: 10/22/20 09:00 Dose: 128 mg Documented by: Methotrexate (Methotrexate 2.5 Mg Tablet) mg PO QWEEK [facility] Mirtazapine (Mirtazapine 15 Mg Tablet) 45 mg PO QHS [facility] Last Admin: 10/21/20 22:02 Dose: 45 mg Documented by: Morphine Sulfate (Morphine 2 Mg/Ml Syringe) 2 - 4 mg IV Q4H PRN PRN PRN Reason: Pain Score 6-10 Last Admin: 10/22/20 08:59 Dose: 2 mg Documented by: Morphine Sulfate (Morphine 4 Mg/Ml Syringe) 2 - 4 mg IV Q4H PRN PRN PRN Reason: Pain Score 6-10 Last Admin: 10/22/20 13:22 Dose: 4 mg Documented by: Multivitamins/Minerals (Multivitamins,Ther W-Minerals Tablet) [facility] Last Admin: 10/22/20 09:01 Dose: 1 tablet Documented by: Non-Formulary Medication (Linaclotide) 290 mcg PO DAILY [facility] Ondansetron HCl (Ondansetron 4 Mg/2 Ml Vial) 4 mg IV Q6H PRN PRN PRN Reason: NAUSEA Potassium Chloride (Potassium Chloride 10 Meq Tablet) 10 meq PO DAILY [facility] Last Admin: 10/22/20 09:00 Dose: 10 meq Documented by: Pregabalin (Pregabalin 75 Mg Capsule) 75 mg PO BID [facility] Last Admin: 10/22/20 09:00 Dose: 75 mg Documented by: Prochlorperazine Edisylate (Prochlorperazine 10 Mg/2 Ml Vial) 5 mg IV Q6H PRN PRN PRN Reason: NAUSEA/VOMITING Rizatriptan Benzoate (Rizatriptan Benzoate 5 Mg Tablet) 5 mg PO DAILY PRN PRN PRN Reason: MIGRAINE SYMPTOMS Last Admin: 10/21/20 01:51 Dose: 5 mg Documented by: Sodium Chloride (0.9% Saline Lock 10 Ml Syringe) 10 - 40 ml IV UD PRN PRN Reason: SALINE FLUSH Tolterodine Tartrate (Tolterodine Tartrate 2 Mg Cap.Sa) 2 mg PO DAILY [facility] Last Admin: 10/22/20 09:00 Dose: 2 mg Documented by: Topiramate (Topiramate 100 Mg Tablet) 100 mg PO QHS [facility] Last Admin: 10/21/20 22:01 Dose: 100 mg Documented by: Discharge Diet: No Restrictions Discharge Activity: Return to Normal Activity May resume sexual activity in: No Restrictions Weight Bearing Status: Weight bearing as tolerated Call your doctor if your incision/area has: Continuous Slow Oozing, Sudden Increased Bleeding, Increased Pain/ Swelling, Increased Redness, Foul Smelling Discharge, Swelling at the incision site Call your doctor if you observe: Fever of 101 or Higher, Coldness, Increased Pain, Numbness or Tingling, Change in Color, Inability to urinate, Inability to have a bowel movement, Using more than one pad per hour, Dizziness, Fainting spells, Swelling in the ankles, Chest pain, Prolonged hiccoughing, Increased palpitations (irregular heartbeat), Calf discomfort, Uncontrolled pain Change Dressing in (Days):: 1 - daily dressing changes with iodine to incisions Cleanse incision/area with: Do not get Incision Wet Home Medications: Medications to take at Discharge Albuterol Aerosols [Ventolin Aerosols] 2.5 mg INHALATION Q6H PRN PRN 09/22/17 Baclofen [Lioresal] 10 mg PO DAILY 09/22/17 Econazole [Spectazole] 1 applic TOPICAL DAILY 09/22/17 Fluoxetine [Prozac] 60 mg PO DAILY 09/22/17 Linaclotide [Linzess] 290 mcg PO DAILY 09/22/17 Pregabalin [Lyrica] 75 mg PO BID 09/22/17 buPROPion SR [Wellbutrin SR (150mg tablets)] 150 mg PO BID 09/22/17 Lactobacillus Combo No.11 [Probiotic] 1 ea PO DAILY #60 cap.sprink 11/29/17 omega-3 fatty acids 1,000 mg capsule 1,000 mg PO DAILY 11/30/18 Budesonide/Formoterol 160/4.5 [Symbicort 160/4.5 Mcg Inhaler (SP)] 2 puff INHALATION BID 02/04/19 Folic Acid 0.8 mg PO DAILY 02/04/19 Fesoterodine Fumarate [Toviaz] 4 mg PO DAILY 05/04/20 Mirtazapine 45 mg PO QHS 05/04/20 Multivitamin with Minerals [Multiple Vitamin] 1 ea PO DAILY 05/04/20 Potassium Chloride 10 meq PO DAILY 05/04/20 Sumatriptan Succinate [Imitrex] 25 mg PO DAILY PRN 05/04/20 Topiramate 100 mg PO QHS 05/04/20 Biotin 1 mg PO DAILY 10/06/20 Calcium Carbonate/Vitamin D3 [Calcium 500 mg-Vit D3 600 Unit] 2 ea PO DAILY 10/06/20 Docusate Sodium [Colace] 100 mg PO BID PRN 10/06/20 Hydrocodone/Acetaminophen [Hydrocodone-Acetamin 7.5-325] 1 ea PO Q6H PRN PRN 10/06/20 Magnesium Oxide [Magnesium] 400 mg PO DAILY 10/06/20 Smz/Tmp Ds [Bactrim Ds] 1 tab PO BID #20 tab 10/20/20 Following Prescriptions Were Given to Patient: Smz/Tmp Ds [Bactrim Ds] 1 tab PO BID #20 tab Transmission Status: Received by [facility] Primary Care Physician: Everton Acevedo DO [Primary Care Provider] - Please Follow Up With: Yomi Corey DO When: 3 weeks Additional Instructions: Do not take any blood thinners, aspirin, or anti-inflammatories as they may cause bleeding. Medical Necessity - Tobacco Use Smoking Status: Never smoker Meaningful Use Info Meaningful Use Diagnoses (Choose all that apply): None applicable
== END 2020-10-22 19:00 | disposition home or self-care (01) | DRG 520 ==
LOC: SDC 21:30 → MS3 21:30
PROVIDERS: Hospitalist; Admitting Provider Orthopaedic Surgery; PCP Student in an Organized Health Care Education/Training Program; Referring Provider Orthopaedic Surgery; Visit Provider Student in an Organized Health Care Education/Training Program
PROC: 0PB40ZZ Excision of Thoracic Vertebra, Open Approach (ICD-10-PCS; CPT 63030; principal; 2020-10-20 12:50)
DX: M47.26 Other spondylosis with radiculopathy, lumbar region (principal); M48.061 Spinal stenosis, lumbar region without neurogenic claudication; M51.36 Other intervertebral disc degeneration, lumbar region; J45.909 Unspecified asthma, uncomplicated; F32.9 Major depressive disorder, single episode, unspecified; M79.7 Fibromyalgia; G47.33 Obstructive sleep apnea (adult) (pediatric); F41.9 Anxiety disorder, unspecified; K21.9 Gastro-esophageal reflux disease without esophagitis; Z98.84 Bariatric surgery status; Z79.891 Long term (current) use of opiate analgesic; Z79.899 Other long term (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 therapy; K58.9 Irritable bowel syndrome, unspecified; L40.50 Arthropathic psoriasis, unspecified; E87.6 Hypokalemia; G62.9 Polyneuropathy, unspecified; N32.81 Overactive bladder; G43.909 Migraine, unspecified, not intractable, without status migrainosus; R09.02 Hypoxemia
CPT/HCPCS: 36415; 72070; 76000; 80048; 85025; 87081; 87426; 94640; 97116; 97162; 97530; 99251; C1778; C9803; J7120; G0463; J3490

== ENCOUNTER → 2021-01-01 11:56 | Outpatient (CLI) | payer MEDICARE, OTHER, SELFPAY ==
[2020-10-20 19:26] VITALS: BMI 23.6
[2021-01-01 15:26] LABS: Absolute Lymphocyte Count 2.18 X10^3/uL (0.83-4.51); Absolute Neutrophil Count 2.1 X10^3/uL (2.0-7.7); Basophil# 0.05 X10^3/uL; Eosinophil# 0.07 X10^3/uL; Eosinophils% 1.5 % (0-5); Hematocrit 36.9 % (37-47); Hemoglobin 12.8 g/dL (12.0-15.0); Lymphocyte # 2.18 X10^3/ul (4.0); Lymphocyte % 45.6 % (19-41); Mean Corp Hgb Conc 34.7 g/dL (32-36); Mean Corpuscular Hgb 34.9 pg (27.0-32.0); Mean Corpuscular Volume 100.5 fL (81-99); Mean Platelet Vol. 10.3 fl (6.2-12.0); Monocyte# 0.33 X10^3/uL; Monocyte% 6.9 % (0-10); NRBC Flagged by Analyzer 0 % (0-5); Neutrophil # 2.14 X10^3/uL (2.7-7.7); Neutrophil % 44.8 % (47-70); Platelet Count 289 K/mm3 (150-450); RBC Distribution Width CV 13.3 % (11.6-14.6); RBC Distribution Width SD 47.1 fl (35.1-43.9); Red Blood Count 3.67 M/mm3 (4.2-5.4); White Blood Count 4.8 K/mm3 (4.4-11.0)
[2021-01-01 15:50] LABS: ALB/GLOB Ratio 1.3 RATIO (0.9-2.4); AST(SGOT) 32 U/L (15-37); Alanine Aminotransfer ALT/SGPT 58 U/L (13-56); Albumin, Serum 3.8 g/dL (3.2-5.0); Alkaline Phosphatase 125 U/L (45-117); Anion Gap 7 (5-15); BUN 15 mg/dL (7-18); BUN/Creat Ratio 20.6 RATIO (10-20); Calcium,Total 8.7 mg/dL (8.5-10.1); Chloride 108 mmol/L (98-107); Creatinine, Serum 0.73 mg/dL (0.55-1.02); EST Glomerular Filtration Rate 88 mL/min (>60); Est Glom Filt Rate - Afr Amer 106 mL/min (>60); Globulin 2.9 g/dL (2.2-4.2); Glucose 60 mg/dL (74-106); Potassium 3.5 mmol/L (3.5-5.1); Protein, Total 6.7 g/dL (6.4-8.2); Sodium Level 144 mmol/L (136-145)
== END ==
PROVIDERS: PCP Student in an Organized Health Care Education/Training Program; Referring Provider Internal Medicine Rheumatology; Visit Provider Internal Medicine Rheumatology
DX: L40.59 Other psoriatic arthropathy (principal); M79.7 Fibromyalgia; M17.11 Unilateral primary osteoarthritis, right knee; L40.8 Other psoriasis; K21.9 Gastro-esophageal reflux disease without esophagitis; M48.061 Spinal stenosis, lumbar region without neurogenic claudication; M48.02 Spinal stenosis, cervical region; K58.0 Irritable bowel syndrome with diarrhea; N32.81 Overactive bladder; F41.9 Anxiety disorder, unspecified; F32.89 Other specified depressive episodes; J45.909 Unspecified asthma, uncomplicated; Z98.84 Bariatric surgery status; Z79.899 Other long term (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 therapy
CPT/HCPCS: 36415; 80053; 85025

== ENCOUNTER 2021-01-19 11:54 | Outpatient (RCR) | payer MEDICARE, OTHER, SELFPAY ==
[2020-10-20 19:26] VITALS: BMI 23.6
[2021-01-19] MEDS: COVID-19 VACC, MRNA(PFIZER)/PF 30 MCG/0.3 ML SYRINGE IM (11:24)
[2021-02-09] MEDS: COVID-19 VACC, MRNA(PFIZER)/PF 30 MCG/0.3 ML SYRINGE IM (11:37)
== END 2021-01-19 23:59 ==
LOC: IMMUN 11:54
PROVIDERS: PCP Student in an Organized Health Care Education/Training Program; Visit Provider Family Medicine
DX: Z23 Encounter for immunization (principal)
CPT/HCPCS: 0001A; 0002A; 91300

== ENCOUNTER → 2021-01-31 | Outpatient (CLI) | payer MEDICARE, OTHER, SELFPAY ==
[2020-10-20 19:26] VITALS: BMI 23.6
[2021-01-31 15:46] LABS: Pathologist Comment May follow
[2021-01-31 16:28] LABS: RBC /Synovial Fluid 0.036 10^6/uL (0); Synovial Fld Mononuclear WBC % 54.2 %; Synovial Fld Polynuclear WBC # 0.033 10^3/uL; Synovial Fld Polynuclear WBC % 45.8 %
[2021-01-31 17:52] LABS: Lymph 50 %; Monocyte /Synovial Fluid 5 %; Neutrophil 41 % (0-25); Other Cell /Synovial Fluid 4 %
[2021-01-31 17:54] LABS: AUTO B FLUID DILUENT BKGD CT WBC <0.1 RBC <0.01 (W<.1,R<.01); Source / Synovial Fluid RIGHT KNEE; Source- Body Fluid SYNOVIAL
[2021-01-31 17:55] LABS: Appearance /Synovial Fluid Cloudy (CLEAR); Color / Synovial Fluid Pink (Pale Yellow); Synovial Fld Mononuclear WBC # 0.039 10^3/ul
[2021-01-31 17:56] LABS: Body Fluid QC Type(s) BF1Q,BF2Q
[2021-02-01 10:11] LABS: Pathologist Review Reviewed
== END | disposition home or self-care (01) ==
LOC: LABSPEC 15:39
PROVIDERS: PCP Student in an Organized Health Care Education/Training Program; Referring Provider Internal Medicine Rheumatology; Visit Provider Internal Medicine Rheumatology
DX: L40.59 Other psoriatic arthropathy (principal); M79.7 Fibromyalgia; L40.8 Other psoriasis; K21.9 Gastro-esophageal reflux disease without esophagitis; M48.061 Spinal stenosis, lumbar region without neurogenic claudication; M48.02 Spinal stenosis, cervical region; N32.81 Overactive bladder; F41.9 Anxiety disorder, unspecified; F32.89 Other specified depressive episodes; J45.909 Unspecified asthma, uncomplicated; M17.11 Unilateral primary osteoarthritis, right knee; K58.0 Irritable bowel syndrome with diarrhea; Z98.84 Bariatric surgery status; Z79.899 Other long term (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 therapy
CPT/HCPCS: 87070; 87075; 87205; 89050; 89051; 89060

== ENCOUNTER → 2021-02-21 11:03 | Outpatient (CLI) | payer MEDICARE, OTHER, SELFPAY ==
[2020-10-20 19:26] VITALS: BMI 23.6
[2021-02-21 12:22] LABS: Absolute Lymphocyte Count 1.78 X10^3/uL (0.83-4.51); Absolute Neutrophil Count 1.4 X10^3/uL (2.0-7.7); Basophil# 0.04 X10^3/uL; Basophil% 1.1 % (0-1); Eosinophil# 0.05 X10^3/uL; Eosinophils% 1.4 % (0-5); Hematocrit 36.5 % (37-47); Hemoglobin 11.3 g/dL (12.0-15.0); Lymphocyte # 1.78 X10^3/ul (0.83-4.51); Lymphocyte % 49.9 % (19-41); Mean Platelet Vol. 9.5 fl (6.2-12.0); Monocyte# 0.27 X10^3/uL; Monocyte% 7.6 % (0-10); NRBC Flagged by Analyzer 0 % (0-5); Neutrophil # 1.43 X10^3/uL (2.7-7.7); Platelet Count 274 K/mm3 (150-450); RBC Distribution Width CV 13.2 % (11.6-14.6); RBC Distribution Width SD 49.2 fl (35.1-43.9); Red Blood Count 3.65 M/mm3 (4.2-5.4); White Blood Count 3.6 K/mm3 (4.4-11.0)
[2021-02-21 12:55] LABS: ALB/GLOB Ratio 1.2 RATIO (0.9-2.4); AST(SGOT) 33 U/L (15-37); Alanine Aminotransfer ALT/SGPT 57 U/L (13-56); Albumin, Serum 3.6 g/dL (3.2-5.0); Alkaline Phosphatase 111 U/L (45-117); Anion Gap 3 (5-15); BUN 21 mg/dL (7-18); BUN/Creat Ratio 23.7 RATIO (10-20); Calcium,Total 8.4 mg/dL (8.5-10.1); Chloride 111 mmol/L (98-107); Creatinine, Serum 0.88 mg/dL (0.55-1.02); EST Glomerular Filtration Rate 70 mL/min (>60); Est Glom Filt Rate - Afr Amer 85 mL/min (>60); Globulin 2.9 g/dL (2.2-4.2); Glucose 79 mg/dL (74-106); Potassium 3.7 mmol/L (3.5-5.1); Protein, Total 6.5 g/dL (6.4-8.2); Sodium Level 143 mmol/L (136-145)
== END ==
PROVIDERS: PCP Student in an Organized Health Care Education/Training Program; Referring Provider Internal Medicine Rheumatology; Visit Provider Internal Medicine Rheumatology
DX: L40.59 Other psoriatic arthropathy (principal); M79.7 Fibromyalgia; M17.11 Unilateral primary osteoarthritis, right knee; L40.8 Other psoriasis; K21.9 Gastro-esophageal reflux disease without esophagitis; M48.061 Spinal stenosis, lumbar region without neurogenic claudication; M48.02 Spinal stenosis, cervical region; K58.0 Irritable bowel syndrome with diarrhea; N32.81 Overactive bladder; F41.9 Anxiety disorder, unspecified; F32.89 Other specified depressive episodes; J45.909 Unspecified asthma, uncomplicated; Z98.84 Bariatric surgery status; Z79.899 Other long term (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 therapy
CPT/HCPCS: 36415; 80053; 85025

== ENCOUNTER 2021-04-18 11:00 | Outpatient (RCR) | payer MEDICARE, BC, SELFPAY ==
[2020-10-20 19:26] VITALS: BMI 23.6
--- NOTE | 2021-03-20 07:26 | HP.PTEVAL_ITS ---
Patient's Visit Information GAY SHAFER is a 55 year old F referred to Physical Therapy by Dr. Kraig Paredes DO with a diagnosis of OA of R knee, psoriatic arthritis. Date of Evaluation: 03/19/21 Physical Therapist: Isai Mccray DPT - Visit Plan Frequency: 2x /Week Duration: 4 Weeks Plan: The pt. will be participating in aquatic therapy to decrease her R knee pain and increase her general bilateral LE strength and stability. The pt. is currently independent with a HEP to increase her general hip strength and increase her IT band flexibility. - Subjective The pt. comes to therapy today for pain in her R knee. She has been having her knee pain for about a year and it has progressively gotten worse. The pain came on by itself and was not due to an injury or past injury. She ranks her pain as a 7.5/10 today, but the pain can get up to a 9/10. It is worst after she participates in activity like working out on the [employer] for 30 minutes at a time, or standing and walking for long periods. She states that stairs do cause some pain in the right knee, but she is limited more from having an AFO on the L leg. For pain relief, the pt. takes her pain medication, ices, and puts topical creams onto the knee joint itself. She does not have pain in the morning and does not have pain while she is sitting. The pt. states that she has been having swelling and inflammation in the knee joint and has been getting it drained by her doctor. On January 31, she stated that they found crystals and it could be a result of gout in the knee. Dr. Paredes is getting her a knee brace to wear while she is active and walking and also talked about getting her a gel injection if the pain does not subside. The pt. states she walks about 3-4 times a week and would like to walk without pain, as well as do ADL's around her home without pain. The pt. reports that she is dealing with and managing depression, but has a supportive at home. The pt. denies any N/T. - Pain R Knee Pain Intensity (Out of 10): 8 Pain Intensity Range: 9 - Objective Posture: No limitations noted, all WNL. Observation: Minimal joint line swelling and inflammation. When ambulating, the pt. has decreased stance time on the right, decreased stride length on the R, and decreased knee extension in stance phase. When performing a squat, the pt. deviates to her R side, has minimal knee valgus, and minimal foot pronation. ROM: R knee extension minus 8deg from 0deg, knee flexion R 140deg. MMT: Hip flexion 4+/5 bilat, knee extension R 5/5, knee flexion R 4/5, hip extension 3/5 R, 3+/5 L, hip abduction bilat 4/5, dorsiflexion/inversion R 5/5, eversion R 5/5. Palpation: TTP along the right lateral joint line, lateral epicondyle, Gerdy's tubercle, and fibular head. Special Tests: - valgus stress test, - varus stress test, - anterior drawer, - posterior drawer, - cuauhtemoc compression, - FADIR, -TIKA - Goals Goal 1:: LTG: The pt. will be compliant and independent with her HEP. Goal Time Frame: 2-4 Weeks Goal 2:: LTG: The pt. will increase her general hip strength by 1-2 muscle grades, so she can perform all ADL's at home without any limitations. Goal Time Frame: 2-4 Weeks Goal 3:: LTG: The pt. will be able to walk a mile with R knee pain less than a 2/10. Goal Time Frame: 4-6 Weeks Goal 4:: LTG: The pt. will be able to extend her right knee to 0deg, so she can normalize her gait pattern. Goal Time Frame: 4-6 Weeks - Rehabilitation Potential Physical Therapy Diagnosis: The pt. is a 55 yo female who presents to the clinic with pain in the R knee on the lateral aspect. The pt. exhibits minimal swelling, TTP along the lateral epicondyle and lateral joint line, decreased hip and knee muscle strength, and minor limitations in knee extension. The pt. is needing PT to address her limitations and decrease her R knee pain, so she can resume all ADL's without pain, as well as go on walks without pain. Rehabilitation Potential: Good - Anticipated Interventions Patient/Client Instruction: Educate patient on: Condition, Plan of Care For the Purpose of:: To decrease pain, To decrease swelling/inflammation, To increase ROM, To improve muscle performance and motor function, To improve ability to perform ADL's, To increase tolerance to activity/condition/position, To increase flexibility/ROM, To improve endurance, To improve balance, To improve tolerance to ADL's Therapeutic Exercise to Include: Strength training, Endurance training, Balance training, Coordination, Body mechanics, Flexibilty training, In an aquatic setting, Passive ROM, Active ROM For the Purpose of:: To decrease pain, To decrease swelling/inflammation, To improve nutrient delivery to tissue, To improve muscle performance and motor function, To improve ability to perform ADL's, To increase flexibility/ROM, To improve endurance, To improve tolerance to ADL's Manual Therapy Techniques to Include: Trigger point massage, Massage, Mobilization, Passive ROM, Functional dry needling, Soft tissue mobilization For the Purpose of:: To decrease pain, To increase ROM, To improve nutrient delivery to tissue, To improve muscle performance and motor function, To increase flexibility/ROM, To improve tolerance to ADL's TENS: Yes Cryotherapy (ice pack, ice massage): Yes Thermo therapy (hot pack): Yes Ultrasound (thermal/non thermal): Yes For the Purpose of:: To decrease pain, To decrease swelling/inflammation, To increase ROM, To improve nutrient delivery to tissue, To improve muscle performance and motor function, To improve tolerance to ADL's Thank you for the opportunity to evaluate your patient. For Medicare and Medicare HMO plans, please review the plan of care and approve it. It will need to be FAXED BACK to us at [phone] for Medicare purposes. For Medicare only, by signing this I certify the plan of care. Please let me know if there are questions or concerns regarding this plan of care. Physician Signature: Date:
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
== END 2021-04-18 19:00 | disposition home or self-care (01) ==
LOC: PT 11:00
PROVIDERS: PCP Student in an Organized Health Care Education/Training Program; Referring Provider Orthopaedic Surgery; Visit Provider Orthopaedic Surgery
DX: M17.11 Unilateral primary osteoarthritis, right knee (principal); L40.50 Arthropathic psoriasis, unspecified
CPT/HCPCS: 97110; 97113; 97161; 97164

== ENCOUNTER 2021-05-03 09:47 | Day surgery (SDC) | payer MEDICARE, BC, SELFPAY ==
[2021-04-09 13:20] VITALS: BMI 23.6
[2021-04-16 14:40] VITALS: BMI 23.6
[2021-05-03] VITALS (7 sets, daily range): BP systolic 139–159; BP diastolic 77–95; PULSE 64–86; RESP 16; TEMP 36.5–37.3; O2SAT 95–100; BMI 23.1
[2021-05-03] MEDS: Lactated Ringers 1,000 ML 100 ML IV ×2 (10:13→13:45)
--- NOTE | 2021-05-03 11:30 | RAD_ITS ---
PROCEDURE: Intrathecal pain pump insertion. DATE OF EXAMINATION: 05/03/2021. INDICATION: Female, 55 years old. Chronic back pain. FLUOROSCOPY TIME (if supplied): (1 minute and 13 seconds) minutes/seconds. 9 intraoperative images were obtained. RAD/Thoracolumbar 2 Views IMPRESSION: Intraoperative imaging provided for intrathecal pain pump insertion. Electronically Signed: Anshul Sams MD at 15:20 EDT , Service support ,
[2021-05-03] MEDS: Cefazolin 2 GM in 0.9% Normal Saline 100 ML IV (12:30)
[2021-05-03] MEDS: Bupivacaine 0.25% 30 ML Vial (12:49)
[2021-05-03] MEDS: Lidocaine 2% (20 ml mdv) 20 ML Vial (12:49)
[2021-05-03] MEDS: Mupirocin Ointment 22gm Tube 1 APPLIC (12:49)
--- NOTE | 2021-05-03 13:53 | PCM.OPRPT ---
Report of Operation Date of Procedure: 05/03/21 Description of Surgical Findings:: Pre-Operative Diagnosis: Chronic pain, opioid dependent, lumbosacral radiculopathy, lumbosacral degenerative disc disease, lumbosacral spinal stenosis Post-Operative Diagnosis: Chronic pain, opioid dependent, Lumbosacral radiculopathy, lumbosacral degenerative disc disease, lumbosacral spinal stenosis PROCEDURES: 1. Implant of an intrathecal targeted drug delivery pump and catheter and creation of a pocket at the right lower quadrant of the abdomen. 2-fluoroscopic guidance of intrathecal catheter implant. ANESTHESIA: General ETA COMPLICATIONS: None BLOOD LOSS: Minimal Implanted device: SynchroMed II pump, serial number [id number], Ascenda catheter serial number [id number], Total implanted catheter is 86.3 cm, spine segment is 86.4 cm -28 cm cut and disposed, remaining segment 58.4 cm, pump segment is 27.9 cm 0 removed. PROCEDURE IN DETAIL: History and physical today was reviewed. Risks and benefits of procedure explained. The patient understood, agreed to procedure, informed consent was obtained. IV inserted per routine protocol. The patient was taken to the operating room, placed in the left lateral decubitus position on a beanbag with the patient left arm extended pressure points were checked per anesthesia and myself no pressure was indicated a pillow was placed between the patient's legs and patient placed in the position with a small flexion. A 2 g of Ancef IV piggyback was infused per anesthesia. The lower back and in the right abdominal wall was prepped and draped in a sterile fashion using iodine x3 followed by Ioban once the area was draped in a sterile fashion and the patient in a good positioning and satisfactory positioning the C arm was brought in in a sterile technique on an lateral view positioning an AP view to the patient the L2-3 interlaminar space was identified the skin and subcutaneous tissue anesthetized with approximately 10 cc of of 0.25% Marcaine and 2% lidocaine mixture 50-50 the needle was advanced on AP view under direct visualization with fluoroscopy to the interlaminar space at L2-3 using a 16-gauge introducer needle 3-1/2 inch once the tip of the needle was engaged into the interlaminar ligament the needle was then advanced on the lateral view towards the intrathecal space multiple checks until CSF was reached once free flow of CSF was visualized a ascending catheter was then inserted through the introducer needle and advanced under direct visualization with fluoroscopy on the lateral as well as AP view with the opaque tip at T9 once confirmation on AP as well as lateral view the catheter was then laid freely with positive CSF flowing from the catheter the skin and subcutaneous tissue adjacent to the needle was then reanesthetized with a total of 10 cc of the above mixture and the right lower quadrant area was then anesthetized with the another 10 cc of the above mixture the skin and subcutaneous tissue of both sides were taken down with an 11gauge plate hemostasis was maintained with pressure as well as Bovie the area was then dissected in a blunt fashion and taken down to a thickness of approximately 4 cm once fascia as well as the muscle layer underneath was palpated hemostasis was maintained during the entire dissection the introducer needle was then removed under direct visualization with fluoroscopy life view and the catheter was advanced and readjusted to the tip of T9 once the introducer needle is out of the area the anchor was then introduced on top of the catheter and secured to the fascia with a biwinged with a 2-0 silk to the fascia ensuring a free flow of CSF at the tip of the catheter as well as no kinking of the catheter at the anchor site a curved tunneler was then used provided by the [employer] kit making sure its subcutaneous spread and advanced in a curve matter towards the created pocket at the tip of the pocket at the level of the right lower abdominal quadrant the catheter then was then introduced through the tunneler and advanced towards the pocket that it was previously created once past the tunneler was then removed and the catheter remained intact at the created pocket free flow of saline CSF was then confirmed the spine segment was then cut 28 cm with remaining 58.4 cm at the tip catheter with a total implanted catheter of 86.3 cm the pump segment at 27.97 cm with nothing cut, the pump segment was then reattached to the spine segment once confirmed tightness a 2 pulls at the site was then performed without any apparent dislocation of the catheter the pump tip was then adjusted towards the superior aspect inferior to the 12th rib on the right side the tip then was connected once confirmed locking of the tip with confirmation of CSF free flow through the sutureless connection to the pump a four 2-0 silk sutures were then taken down to the fascia and the muscles at the 2:00 10:00 8:00 as well as 4:00 o'clock sites the sutures were then secured to the pump wings and the catheter was then rolled under the pump and the area was then secured with a suture down to the fascia making sure the pump port is headed cephalad towards the rib as well as to the lateral portion of her right lower quadrant once repeated confirmation the skin and subcutaneous tissue were then sutured in a running 3-0 Vicryl followed by a 4-0 Vicryl hemostasis was maintained during the entire procedure, the procedure was completed without any apparent difficulty or any complication the patient was then awakened by anesthesia and transferred to the PACU in a stable condition. ESTIMATED BLOOD LOSS: Minimal less than 25 mL ASSESSMENT AND PLAN: This is a 55-year-old female with chronic pain, opioid dependency, lumbosacral radiculopathy lumbosacral degenerative disc disease lumbosacral spinal stenosis status post 1. Implant of an intrathecal targeted drug delivery pump and catheter and creation of a pocket at the right lower quadrant of the abdomen. 2-fluoroscopic guidance of intrathecal catheter implant.patient will continue her current medications a prescription was provided to the patient Keflex 500 mg 1 p.o. every 8 hours for 7 days postop instruction were given in writing to the patient and her as well as verbally and in writing, patient will follow approximately 1 week for reevaluation Surgeon: Yomi Malone adult education professional: None Type of Anesthesia: General
[2021-05-03] MEDS: Acetaminophen 325 MG Tablet 650 MG PO (15:43)
[2021-05-03] MEDS: oxyCODONE 5 MG Tablet 10 MG PO (15:43)
--- NOTE | 2021-05-09 15:52 | PCM.HP.BLA ---
History and Physical Date of Admission: 05/03/21 Chief Complaint: Medication refill History of Present Illness: This is a 55 Y/O Female who was seen and evaluated at our office today as a follow up. Pain: neck,lower back,right knee,left foot Quality: constant,varies in intensity Region: Neck radiates into shoulder blades and around to either side.mid-Lower back radiates across.Reports rita knee pain but right knee is worse and has pain in her left foot. Severity: dull-severe aching,stabbing,burning,stiffness Timing: years but has gradually been getting worse Aggravated by: walking for long periods of time, standing, getting up from chair Relieved by: sitting Pain score (out of 10): 07/13 Other info: Patient is here for a follow up.Reports pain in the lower back that radiates across and up the spine that varies in intensity.Reports stiffness in the neck into the shoulder blades.Reports pain in both knees with the right one being worse.Patient states she is getting a brace for the right knee.Reports pain in the left ankle and wears her brace most of the time.Wants to discuss proceeding with her pain pump.Needs refill on her percocet and lyrica, she continues to do ok with her medications without side effects, she denies any bowel or bladder problems, Review of Systems: Patient Notes: SOB-asthma and occasional headaches, pressure in chest on occasion, irritable bowel, and overactive bladder. Patient denies any fever, chills, vision or hearing problems. Reports weight loss and fatigue. Mood has been more down. Past Medical History: h/o IBS h/o severe asthma h/o Arthritis h/o depression h/o OCD h/o obstructive sleep apnea h/o muscle pain h/o Psoriasis h/o overactive bladder HEARING AID h/o sclerosis/scoliosis h/o irregular heartbeat h/o GERD h/o Anxiety h/o migraines s/p septoplasty s/p tonsillectomy s/p adenoidectomy s/p hysterectomy 2014 s/p rita foot (biopsy)2014 s/p Turbinates 2015 s/p adnexal mass removal (benign) 2014 s/p rita cataract sx s/p right breast biopsy s/p rita breast reduction 2010 s/p rita CTR 2016 s/p lipoma removed -09/23/17 s/p Neck sx-debridement--wound vac/open wound-11/27/17 s/p yag Laser Capsulotomy 04-05-2019 s/p gastric bypass s/p Laparoscopic Cholecystectomy 06/2020 s/p liver biopsy 06/2020 Family History: ======== Structured Family History ======== Father: Hypertension; Back & neck issues Grandparent: Emphysema, Cancer Mother: Hypertension Social History: [Tobacco: Never smoker Pipe Smoker: No Cigar Smoker: No Chewing Tobacco User: No] Living situation: 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 drugs: Denies Allergies: Dust, Nabumetone, Seasonal, Smoke, Thimero, Enviromental Medications: 1) allergy shots, once per month ,one in each arm 2) amitriptyline 10 mg oral tablet, Take 1 tablet by mouth every evening 3) baclofen 10 mg oral tablet, 1 tablet po tid as needed for spasm 4) Betamethasone Dipropionate External Cream, daily as directed 5) biotin 300 mcg oral tablet, Take 1 tablet by mouth once daily 6) buPROPion 150 mg/12 hours (SR) oral tablet, extended release, One tablet BID 7) Calcium 600+D oral tablet, 2 1/2 tabs daily 8) clobetasol 0.05% topical lotion, apply as directed 9) econazole 1% topical cream, apply daily 10) ferrous sulfate 324 mg (65 mg elemental iron) oral delayed release tablet, Take 1 tablet by mouth once daily 11) FLUoxetine 60 mg oral tablet, Take 1 tablet by mouth once daily 12) Linzess 290 mcg oral capsule, One tablet daily 13) Lyrica 75 mg oral capsule, 1 PO BID 14) mirtazapine 15 mg oral tablet, Take 1/2 tablet by mouth every evening 15) mirtazapine 30 mg oral tablet, Take 1 tablet by mouth every evening 16) oxybutynin 5 mg/24 hours oral tablet, extended release, Take 1 tablet by mouth once daily 17) Percocet 325 mg-5 mg Add'l Sig, 1 tablet po bid to tid as needed for pain 18) Probiotic oral tablet, One tablet daily 19) PT to eval and treat 20) PT/OT eval and treat, 2-3 times per week for 6 weeks. 21) SUMAtriptan 100 mg oral tablet, as directed prn 22) Symbicort 160 mcg-4.5 mcg/inh inhalation aerosol, bid as directed 23) topiramate 100 mg oral tablet, Take 1 tablet by mouth every evening 24) Tremfya 100 mg/mL subcutaneous solution, every 8 weeks as directed 25) triple magnesium complex, Take 1 tablet by mouth once daily 26) Ventolin HFA 90 mcg/inh inhalation aerosol, 2 puffs q4 hrs prn 27) Vitamin B12 1000 mcg oral tablet, One tablet daily 28) Vitamin B6 100 mg oral tablet, Take 1 tablet by mouth once daily 29) Vitamin D3 5000 intl units oral tablet, One tablet daily 30) zinc (as gluconate) 50 mg oral tablet, Take 1 tablet by mouth once daily Physical Examination: Wt: 143 lb Ht/Ln: 66.5 in BMI: 22.7 BP: 110/71 Pulse: 75 RR: 16 Temp: 97.3F Pain: 9 Well nourished and well developed in no acute distress. Alert and oriented to person, place and time. Affect is normal and appropriate. Mucosa pink and moist. Respirations even and unlabored. Neck is supple without significant lymphadenopathy or thyromegaly. Abdomen soft & some tenderness positive for multiple scars. No HSM or masses appreciated. Extremities show no cyanosis, clubbing, or 1+ edema, left knee in a hard brace. Gait is Antalgic. Incision on her thoracic spine is well healed. Positive surgical scar that is well healed. Lumbar paraspinal muscle tenderness. Bilateral lumbar facet challenge is positive. Lumbar ROM is limited due to pain. Thoracic paraspinal muscle tenderness. Thoracic lumbar facet challenge is positive. Cervical paraspinal muscle tenderness much improved. Cervical ROM is limited due to pain much improved. Bilateral cervical facet loading is positive. ROM of the right knee is limited due to pain. Sacroiliac Joint Tenderness on palpation. Motor and sensory exam is unchanged. Goals: Health Concerns: Assessment & Plan: # Degenerative lumbar spinal stenosis (M48.06): # Degeneration of lumbar intervertebral disc (M51.36): # Lumbar radiculopathy (M54.16): # Degeneration of cervical intervertebral disc (M50.30): # Cervical spondylosis (M47.812): # Degenerative cervical spinal stenosis (M48.02): # Arthropathy of cervical spine facet joint (M48.9): # Degeneration of lumbosacral intervertebral disc (M51.37): # Lumbar spondylosis (M47.816): # Lumbosacral spondylosis (M47.817): # Myofascial pain syndrome (M79.7): # Arthropathy of lumbar facet joint (M46.96): # Muscle pain (M79.1): # 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 (Transmitted by Juana Malone MD) Continue current medication regime. IT pump related questions were answered today. Reviewed her surgical consult, at this time we will proceed with an IT pump implant as her trial worked well of her with 98% improvement for more than 24 hours with her trial. Follow up with her surgeon. UDS was performed today and will be reviewed on the next encounter to monitor pt medications compliance. Pt was advised not to consume alcohol with his medications due to possible severe interaction, pt appears to understand. Educated pt regarding the risks of use of benzodiazepine medication and opioid medication pt stated understanding. Pt was advised not to consume alcohol with his medications due to possible severe interaction, pt appears to understand. The pt has been counseled on safe storage and disposal of opioids. Follow up with her PCP. Follow up with her surgeon and her care manager. 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 Reviewed with the pt today our opioid agreement and they appear to understand. Continue with her TENS unit for her neck and for her thoracic spine. OARRS was reviewed today. UDS was reviewed, pt appears compliant SOAPP score is 4 There are no signs of diversion or addiction with the pt, there is also no signs of abuse or misuse, continues to do well with their medications without any side effects, we will continue monitoring the pt closely. PEG was reviewed today. Reviewed the pt psych eval from prior and we will proceed. Life style modifications were also discussed today and the pt appears to understand. Weight loss was recommended today through diet and exercise. Risks and benefits of the above meds were discussed with the pt and they appear to understand. The common side effects of the medications were discussed and all of their questions and concerns were answered and they appear to understand. Discussed natural and expected course of this diagnosis and need to alert me if symptoms do not follow expected course, or if any worse. Pt is to continue with her HEP. Pt has tried multiple modalities with no success, we will schedule the pt for a permanent intrathecal pump insertion under fluoroscopy as pt reports having excellent relief from the trial We have discussed the risks, benefits as well as alternatives of the procedure and the patient appears to understand and would like to proceed with the above plan. The above plan was discussed today with the pt in details and they appear to understand and agrees to continue with the plan.
== END 2021-05-03 16:17 | disposition home or self-care (01) ==
LOC: SDC 09:48 → AC 09:48
PROVIDERS: PCP Student in an Organized Health Care Education/Training Program; Referring Provider Anesthesiology Pain Medicine; Visit Provider Anesthesiology Pain Medicine
PROC: (CPT 63685; principal; 2021-05-03 11:15)
DX: M51.17 Intervertebral disc disorders with radiculopathy, lumbosacral region (principal); M48.07 Spinal stenosis, lumbosacral region; M47.26 Other spondylosis with radiculopathy, lumbar region; M47.27 Other spondylosis with radiculopathy, lumbosacral region; G89.29 Other chronic pain; F11.20 Opioid dependence, uncomplicated; J45.909 Unspecified asthma, uncomplicated; F32.9 Major depressive disorder, single episode, unspecified; I10 Essential (primary) hypertension; G47.30 Sleep apnea, unspecified; G47.33 Obstructive sleep apnea (adult) (pediatric); K21.9 Gastro-esophageal reflux disease without esophagitis; F41.9 Anxiety disorder, unspecified; Z79.51 Long term (current) use of inhaled steroids; Z79.899 Other long term (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 therapy
CPT/HCPCS: 62350; 62362; 72080; 76000; J7120; J2405

== ENCOUNTER → 2021-05-21 12:27 | Outpatient (CLI) | payer MEDICARE, BC, SELFPAY ==
[2020-10-20 19:26] VITALS: BMI 23.6
[2021-05-03 10:13] VITALS: BMI 23.1
[2021-05-21 15:11] LABS: Absolute Lymphocyte Count 1.68 X10^3/uL (0.83-4.51); Absolute Neutrophil Count 1.5 X10^3/uL (2.0-7.7); Basophil# 0.04 X10^3/uL; Basophil% 1.1 % (0-1); Eosinophil# 0.06 X10^3/uL; Eosinophils% 1.7 % (0-5); Hematocrit 34.4 % (37-47); Hemoglobin 10.9 g/dL (12.0-15.0); Lymphocyte # 1.68 X10^3/ul (0.83-4.51); Lymphocyte % 47.6 % (19-41); Mean Corp Hgb Conc 31.7 g/dL (32-36); Mean Corpuscular Volume 97.7 fL (81-99); Mean Platelet Vol. 10.1 fl (6.2-12.0); Monocyte# 0.25 X10^3/uL; Monocyte% 7.1 % (0-10); NRBC Flagged by Analyzer 0 % (0-5); Neutrophil # 1.49 X10^3/uL (2.7-7.7); Neutrophil % 42.2 % (47-70); Platelet Count 313 K/mm3 (150-450); RBC Distribution Width CV 13.5 % (11.6-14.6); RBC Distribution Width SD 48.2 fl (35.1-43.9); Red Blood Count 3.52 M/mm3 (4.2-5.4); White Blood Count 3.5 K/mm3 (4.4-11.0)
[2021-05-21 15:25] LABS: ALB/GLOB Ratio 1.2 RATIO (0.9-2.4); AST(SGOT) 21 U/L (15-37); Alanine Aminotransfer ALT/SGPT 47 U/L (13-56); Albumin, Serum 3.5 g/dL (3.2-5.0); Alkaline Phosphatase 124 U/L (45-117); Anion Gap 5 (5-15); BUN 14 mg/dL (7-18); BUN/Creat Ratio 16.5 RATIO (10-20); Calcium,Total 8.6 mg/dL (8.5-10.1); Chloride 113 mmol/L (98-107); Creatinine, Serum 0.85 mg/dL (0.55-1.02); EST Glomerular Filtration Rate 73 mL/min (>60); Est Glom Filt Rate - Afr Amer 89 mL/min (>60); Globulin 2.9 g/dL (2.2-4.2); Glucose 80 mg/dL (74-106); Potassium 3.7 mmol/L (3.5-5.1); Protein, Total 6.4 g/dL (6.4-8.2); Sodium Level 145 mmol/L (136-145)
== END ==
PROVIDERS: PCP Student in an Organized Health Care Education/Training Program; Referring Provider Internal Medicine Rheumatology; Visit Provider Internal Medicine Rheumatology
DX: L40.59 Other psoriatic arthropathy (principal); M79.7 Fibromyalgia; M17.11 Unilateral primary osteoarthritis, right knee; L40.8 Other psoriasis; K21.9 Gastro-esophageal reflux disease without esophagitis; M48.061 Spinal stenosis, lumbar region without neurogenic claudication; M48.02 Spinal stenosis, cervical region; K58.0 Irritable bowel syndrome with diarrhea; N32.81 Overactive bladder; F41.9 Anxiety disorder, unspecified; F32.89 Other specified depressive episodes; J45.909 Unspecified asthma, uncomplicated; Z98.84 Bariatric surgery status; Z79.899 Other long term (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 therapy; L40.9 Psoriasis, unspecified
CPT/HCPCS: 36415; 80053; 85025

== ENCOUNTER → 2021-06-01 10:10 | Outpatient (CLI) | payer MEDICARE, BC, SELFPAY ==
[2021-05-03 10:13] VITALS: BMI 23.1
--- NOTE | 2021-06-01 10:24 | MRI_ITS ---
HISTORY: Stenosis, spondylosis, radiculopathy. TECHNIQUE: Multiplanar and multisequence MR images of the lumbar spine. IV Contrast dosage and agent: None. # of images incl. paperwork: 126. COMPARISON: XR 09/29/2018. FINDINGS: VERTEBRAE: Vertebral body heights maintained. Mild degenerative changes of L5-S1. No significant bone marrow signal abnormality. ALIGNMENT: No anterior or posterior subluxation. CONUS: Normal morphology with position at L2-3, lower limits of normal. SOFT TISSUES: Mild posterior subcutaneous edema. Artifact in the anterior abdomen. INTERVERTEBRAL DISCS: Mild disc bulges with facet arthropathy at multiple levels. T12-L1, L1-2, L2-3, L3-4: No significant central canal stenosis or foraminal narrowing. L4-5: Minimal narrowing of the thecal sac. Mild bilateral foraminal narrowing. L5-S1: Mild right foraminal narrowing. MRI/Spine Lumbar (Routine) IMPRESSION: Mild degenerative disc disease without significant spinal canal stenosis. Mild foraminal narrowing as above. at 1540 Reported and signed by: Saima Ingram MD Electronically Signed: Saima Ingram MD at 15:39 EDT Tel , Service support ,
== END ==
PROVIDERS: PCP Student in an Organized Health Care Education/Training Program; Referring Provider Orthopaedic Surgery; Visit Provider Orthopaedic Surgery
DX: M47.26 Other spondylosis with radiculopathy, lumbar region (principal); M48.061 Spinal stenosis, lumbar region without neurogenic claudication
CPT/HCPCS: 72148

== ENCOUNTER 2021-06-21 11:58 | Emergency (ER) | payer MEDICARE, BC, SELFPAY ==
[2021-06-21 11:58] VITALS: BP 132/68; PULSE 58; RESP 18; TEMP 36.6; O2SAT 100; BMI 24.2
--- NOTE | 2021-06-21 12:26 | CT_ITS ---
STUDY: CT BRAIN WITHOUT CONTRAST REASON FOR EXAM: Female, 55 years old. Head injury RADIATION DOSAGE (If Supplied By Facility): CTDIvol = ( 44.99 ) mGy, DLP = ( 745.49 ) mGycm TECHNIQUE: Transaxial CT imaging of the brain was performed without administration of intravenous contrast material. Individualized dose optimization techniques were used for this CT. COMPARISON: No relevant priors. FINDINGS: Normal soft tissue structures. There is hyperostosis frontalis internus. Normal size ventricles and extra-axial spaces for the patient''s age. Normal white matter tracts of the cerebral hemispheres. There are small punctate calcifications of the basal ganglia which are seen in the aging brain as a normal variant. Normal brainstem. Normal cerebellum. There is no intracranial hemorrhage. There are no findings of an acute ischemic infarction. Normal visualized paranasal sinuses. CT/Brain/Head without Contrast IMPRESSION: Normal unenhanced CT scan of the brain. Electronically Signed: Anshul Sams MD at 12:58 EDT , Service support ,
--- NOTE | 2021-06-21 12:34 | EX.ED.GENINJ ---
HPI History of Present Illness Chief Complaint: Head Injury Informant: patient Onset/Context/Timing Onset: Days Mechanism/Context: Fall Current Severity: Mild Maximum Severity: Mild Associated Symptoms Associated Symptoms: Negative for Parasthesias, Weakness, Loss of function, Inability to ambulate, Loss of consciousness and Amnesia Narrative Narrative: 55-year-old female treated for chronic pain with a pain pump. Has a history of degenerative disc disease and psoriatic arthritis. Reportedly fell off the toilet several days ago hit her head multiple times on the bathtub. Denies loss conscious. Denies being on any blood thinners. Has had nausea no vomiting. Denies other injuries. 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 Prior similar symptoms: No Recent Illness/Hospitalization: No PFSH PFSH Medical History Arthritis Asthma Back pain BiPAP (biphasic positive airway pressure) dependence Bladder disease Bloating BREAST LUMP OR CYST Carpal tunnel syndrome Cataract Depression GASTROINTESTIONAL PROBLEMS Hearing problem Hepatitis History of hiatal hernia History of IBS History of irregular heartbeat History of migraine headaches Hives IBS (irritable bowel syndrome) Leg weakness Lipoma of back LIPOMA UPPER BACK/POSTERIOR NECK Mass in neck OAB (overactive bladder) Osteoarthritis Pneumonia Polycystic ovary Postoperative seroma of subcutaneous tissue after dermatologic procedure Psoriasis Recurrent infections Seasonal allergies Shortness of breath on exertion Spinal cord stimulator status SPINAL STENOSIS - MULTIPLE BACK ISSUES Syncope Vision problems Home Medications albuterol sulfate 2.5 mg INHALATION Q6H PRN PRN 09/22/17 [History Last Taken 11/27/17 07:20] baclofen 10 mg PO DAILY 09/22/17 [History Last Taken 03/23/18 05:50] bupropion HCl 150 mg PO BID 09/22/17 [History Last Taken Unknown] econazole 1 applic TOPICAL DAILY 09/22/17 [History Last Taken Unknown] fluoxetine 60 mg PO DAILY 09/22/17 [History Last Taken Unknown] linaclotide 290 mcg PO DAILY 09/22/17 [History Last Taken Unknown] pregabalin 75 mg PO BID 09/22/17 [History Last Taken 03/23/18 05:50] lactobacillus combo no.11 1 ea PO DAILY #60 cap.sprink 11/29/17 [Rx Last Taken Unknown] omega-3 fatty acids 1,000 mg capsule 1,000 mg PO DAILY 11/30/18 [History Last Taken 12/17/18] budesonide-formoterol 2 puff INHALATION BID 02/04/19 [History Last Taken 05/12/20] folic acid 0.8 mg PO DAILY 02/04/19 [History Last Taken 10/04/20] fesoterodine 4 mg PO DAILY 05/04/20 [History Last Taken Unknown] mirtazapine 45 mg PO QHS 05/04/20 [History Last Taken Unknown] multivitamin with minerals 1 ea PO DAILY 05/04/20 [History Last Taken Unknown] potassium chloride 10 meq PO DAILY 05/04/20 [History Last Taken Unknown] sumatriptan succinate 25 mg PO DAILY PRN 05/04/20 [History Last Taken 05/12/20] topiramate 100 mg PO QHS 05/04/20 [History Last Taken Unknown] biotin 1 mg PO DAILY 10/06/20 [History Last Taken Unknown] calcium carbonate-vitamin D3 2 ea PO DAILY 10/06/20 [History Last Taken Unknown] docusate sodium 100 mg PO BID PRN 10/06/20 [History Last Taken Unknown] magnesium oxide 400 mg PO DAILY 10/06/20 [History Last Taken Unknown] sulfamethoxazole-trimethoprim 1 tab PO BID #20 tab 10/20/20 [Rx Last Taken Unknown] oxybutynin chloride 5 mg tablet,extended release 24 hr 5 mg PO DAILY tab 03/12/21 [History Last Taken Unknown] oxycodone-acetaminophen 5 mg-325 mg tablet 1 tab PO PRN PRN tab 03/12/21 [History Last Taken Unknown] Allergy/AdvReac Type Severity Reaction Status Date / Time house dust Allergy NEEDS Verified 06/21/21 12:02 FOLLOW-UP mold Allergy NEEDS Verified 06/21/21 12:02 FOLLOW-UP nabumetone Allergy Hives Verified 06/21/21 12:02 thimerosal Allergy Other Verified 06/21/21 12:02 naproxen [From Naprosyn] AdvReac Other Verified 06/21/21 12:02 birds Allergy Other Uncoded 06/21/21 12:02 COWS AdvReac Other Uncoded 06/21/21 12:02 Family History Father Hypertension Mother Arthritis Hypertension Cancer Brother Alcohol abuse Aunt Diabetes Grandfather Alcohol abuse Grandfather Psychiatric care Cancer CVA (cerebral vascular accident) Grandmother Alcohol abuse Grandmother Arthritis Depression Other Family history of basal cell carcinoma Family history of skin cancer Surgical History ADENOIDS AND TONSILS 1974 CATARACT L & R, TORIC LENS REPLACEMENT 2016 COMPLETE HYSTERECTOMY WITH BSO 2014 Deviated septum EXCISION 8 CM PAINFUL SOFT TISSUE MASS H/O bilateral breast reduction surgery (~2012) H/O wisdom tooth extraction RADIOFRQUENSY ABLATION 2016 Social History Smoking Status: Never smoker alcohol intake: never substance use type: does not use what type of physical activity do you participate in: walking and swimming seatbelt use: always do you feel safe at home: Yes additional social history: SUN EXPOSURE: FREQUENTLY ROS ROS ED ROS Narrative Denies recent illness. Has had some nausea since hitting her head. Review of Systems ROS Unobtainable: Denies due to encephalopathy Constitutional Constitutional ED: Denies chills or fever(s) Eyes Eyes: Denies change in vision ENT ENT ED: Denies ear pain or sore throat Cardiovascular Cardiovascular: Denies chest pain Respiratory/Chest Respiratory/Chest: Denies cough or dyspnea Gastrointestinal Gastrointestinal: Reports nausea; Denies abdominal pain, diarrhea or vomiting Genitourinary Genitourinary ED: Denies dysuria Musculoskeletal Musculoskeletal: Denies myalgias Integumentary Denies rash Neurologic Neurologic: Denies headache(s) Psychiatric Psychiatric: Denies depression Endocrine Endocrinology: Denies polyuria Hematologic/Lymphatic Hematologic/Lymphatic: Denies easy bruising Allergic/Immunologic Allergic/Immunologic ED: Denies urticaria EXAM Physical Exam Narrative Exam Narrative: Moist female no acute distress. Vital signs stable afebrile. HEENT exam pupils are reactive light motions are intact. No signs of trauma to the face. Mild tenderness to the scalp but no significant hematoma. No laceration. C-spine nontender. Trachea midline. Lungs clear to auscultation. Heart regular rhythm no murmur rate about 60. Chest wall nontender. Abdomen soft nontender. Pelvic girdle intact. Moving all 4 extremities. A brace in the left lower leg. Dorsi plantarflexion intact. Normal back up worker strength. Upper extremities are nontender with normal range of motion. Back no signs of trauma or new tenderness. Neurologically she is awake alert with no focal motor deficits. Const Vital Signs: 06/21/21 11:58 06/21/21 12:48 Temperature 97.9 F Temperature Source Temporal Pulse Rate 58 L Respiratory Rate 18 Respiratory Effort Normal Non-Labored Blood Pressure 132/68 H Blood Pressure Mean 89 Pulse Ox 100 Oxygen Delivery Method Room Air Room Air Positive well nourished and well developed; Negative for unkempt General Appearance ED: well developed and NAD; Negative for unkempt HEENT trauma and tenderness; Negative for atraumatic Eyes PERRL and EOMs intact bilaterally Neck full ROM General: Negative for tenderness Chest Wall inspection of chest normal and palpation of chest normal Resp normal respiratory effort and clear to auscultation bilaterally Auscultation: Negative for rales, rhonchi, wheezes or diminished lung sounds Cardio regular rhythm, S1 normal heart sound, S2 normal heart sound and no murmurs Rate: regular rate GI normal to inspection, nondistended, normoactive bowel sounds, non-tender, non-distended and no masses Inspection: Negative for abdominal distention Auscultation: normoactive bowel sounds Palpation: soft; Negative for tender, guarding or rebound tenderness present Back/Spine normal to inspection and no thoracic nor lumbar tenderness General Back: Negative for CVA tenderness Extremity normal to inspection Extremity Narrative: Brace on her left lower extremity. Neuro oriented x3 and moves all extremities Sensorium / Orientation: alert, oriented to person, oriented to place and oriented to time; Negative for orientation impaired, lethargic or stuporous Psych mental status grossly normal and thought process normal Appearance: Negative for unkempt Skin no rashes or lesions noted, no wounds and no jaundice MDM MDM MDM Narrative Medical decision making narrative: Middle-aged female treated for chronic pain with the pain pump. Reportedly fell and hit her head several days ago. Exam unremarkable other than mild tenderness to her scalp with no hematoma. Unremarkable neurologic exam. CT of her brain being obtained. Repeat exam at 2:20 PM patient doing well. I went over her CAT scan results and she will be discharged to home. Radiography Diagnostic Testing: Radiology Impression Brain CT 06/21/21 12:26 IMPRESSION: Normal unenhanced CT scan of the brain. Electronically Signed: Anshul Sams MD at 12:58 EDT , Service support , Discharge Plan Triage Chief Complaint: Head Injury ED Provider: Milton De Santiago Dx/Rx/DC Orders Clinical Impression: Head injury Instructions: ED Head Injury (Adult) Prescriptions: No Action omega-3 fatty acids [Fish Oil Concentrate] 1,000 mg capsule 1,000 mg PO DAILY RF: 0 oxybutynin chloride 5 mg tablet extended release 24hr 5 mg PO DAILY RF: 0 oxycodone-acetaminophen 5-325 mg tablet 1 tab PO PRN PRN (Reason: Pain) RF: 0 bupropion HCl 150 MG tablet extended release 12 hr 150 mg PO BID RF: 0 albuterol sulfate 2.5 MG/3 ML solution for nebulization 2.5 mg INHALATION Q6H PRN PRN (Reason: Asthma) RF: 0 baclofen 10 MG tablet 10 mg PO DAILY RF: 0 econazole 1 APPLIC cream 1 applic TOPICAL DAILY RF: 0 fluoxetine 20 MG capsule 60 mg PO DAILY RF: 0 pregabalin 50 MG capsule 75 mg PO BID RF: 0 linaclotide 290 MCG capsule 290 mcg PO DAILY RF: 0 lactobacillus combo no.11 1 EACH capsule, sprinkle 1 ea PO DAILY Qty: 60 RF: 1 folic acid 0.4 MG tablet 0.8 mg PO DAILY RF: 0 budesonide-formoterol 1 INHALER inhaler 2 puff inhalation BID RF: 0 potassium chloride 10 MEQ capsule, extended release 10 meq PO DAILY RF: 0 sumatriptan succinate 25 MG tablet 25 mg PO DAILY PRN (Reason: Headache) RF: 0 mirtazapine 45 MG tablet,disintegrating 45 mg PO QHS RF: 0 topiramate 100 MG tablet 100 mg PO QHS RF: 0 fesoterodine 4 MG tablet extended release 24 hr 4 mg PO DAILY RF: 0 multivitamin with minerals 1 EACH tablet 1 ea PO DAILY RF: 0 docusate sodium 100 MG capsule 100 mg PO BID PRN (Reason: Constipation) RF: 0 calcium carbonate-vitamin D3 1 EACH tablet 2 ea PO DAILY RF: 0 biotin 1 MG tablet 1 mg PO DAILY RF: 0 magnesium oxide 400 MG capsule 400 mg PO DAILY RF: 0 sulfamethoxazole-trimethoprim 1 TABLET tablet 1 tab PO BID Qty: 20 RF: 0 Primary Care Provider: Everton Acevedo Referrals: Everton Acevedo, [Primary Care Provider] - 1 Week if not improving Activity Restrictions/Additional Instructions: Tylenol for any head pain. Follow-up with your doctor as needed. Disposition Disposition: Home, Self Care
[2021-06-21 14:43] VITALS: PULSE 84; RESP 20; O2SAT 97
--- NOTE | 2021-06-21 14:43 | ED.RN ---
THIS NURSE REVIEWED D/C INSTRUCTIONS WITH PT AND VISITOR. BOTH VERBALIZED UNDERSTANDING OF INSTRUCTIONS. PT DENIES FURTHER NEEDS OR QUESTIONS AT THIS TIME. PT AMBULATES FROM ROOM ON OWN WITHOUT ASSISTANCE FROM STAFF
== END 2021-06-21 14:45 | disposition home or self-care (01) ==
PROVIDERS: Emergency Provider Emergency Medicine; PCP Student in an Organized Health Care Education/Training Program
DX: S09.90XA Unspecified injury of head, initial encounter (principal); W18.12XA Fall from or off toilet with subsequent striking against object, initial encounter
CPT/HCPCS: 70450; 99282

== ENCOUNTER → 2021-07-19 10:16 | Outpatient (CLI) | payer MEDICARE, BC, SELFPAY ==
[2021-05-03 10:13] VITALS: BMI 23.1
--- NOTE | 2021-07-19 10:24 | MRI_ITS ---
STUDY: MRI CERVICAL SPINE WITHOUT CONTRAST REASON FOR EXAM: Female, 55 years old. SPINAL STENOSIS TECHNIQUE: Standardized fat and water weighted pulse sequences were obtained in the sagittal and axial planes. Limited study. The patient was not cooperative. COMPARISON: None FINDINGS: Normal foramen magnum and brainstem-cervical cord junction. Normal craniovertebral junction. Normal anterior atlantoaxial articulation. Normal odontoid process. Along the spinous processes of C6 and C7, with a soft tissue, there is a soft tissue defect and/or gauze material. C2-3: Loss of intervertebral disc height. There is endplate spondylosis of the vertebral body. Normal central canal and intervertebral neuroforamina. There is bilateral facet arthropathy. C3-4: Loss of intervertebral disc height. There is endplate spondylosis of the vertebral body. Posterior disc bulge. Minimal impression upon anterior thecal sac. Minimal left stenosis of the Intervertebral neuroforamina. There is bilateral facet arthropathy. C4-5: Loss of intervertebral disc height. There is endplate spondylosis of the vertebral body. Posterior disc bulge. Minimal impression upon anterior thecal sac. Minimal left stenosis of the Intervertebral neuroforamina. There is bilateral facet arthropathy. C5-6: Loss of intervertebral disc height. There is endplate spondylosis of the vertebral body. Posterior disc bulge. Minimal impression upon anterior thecal sac. Minimal left stenosis of the Intervertebral neuroforamina. There is bilateral facet arthropathy. C6-7: Loss of intervertebral disc height. There is endplate spondylosis of the vertebral body. Posterior disc bulge. Minimal impression upon anterior thecal sac. Minimal bilateral stenosis of the Intervertebral neuroforamina. There is bilateral facet arthropathy. C7-T1: Normal endplates. Normal disc height and morphology. Normal central canal and intervertebral neuroforamina. MRI/Spine Cervical (Routine) IMPRESSION: Multilevel degenerative changes, as described above. Other findings as above. Electronically Signed: George Alberto MD at 12:19 EDT , Service support ,
== END ==
PROVIDERS: PCP Student in an Organized Health Care Education/Training Program; Referring Provider Orthopaedic Surgery; Visit Provider Orthopaedic Surgery
DX: M48.02 Spinal stenosis, cervical region (principal); M50.30 Other cervical disc degeneration, unspecified cervical region
CPT/HCPCS: 72141

== ENCOUNTER → 2021-07-23 13:25 | Outpatient (CLI) | payer MEDICARE, BC, SELFPAY ==
[2021-07-23 15:00] LABS: Absolute Lymphocyte Count 1.69 X10^3/uL (0.83-4.51); Absolute Neutrophil Count 1.4 X10^3/uL (2.0-7.7); Basophil# 0.02 X10^3/uL; Basophil% 0.6 % (0-1); Eosinophil# 0.04 X10^3/uL; Eosinophils% 1.1 % (0-5); Hematocrit 34.2 % (37-47); Hemoglobin 11.1 g/dL (12.0-15.0); Lymphocyte # 1.69 X10^3/ul (0.83-4.51); Lymphocyte % 46.9 % (19-41); Mean Corp Hgb Conc 32.5 g/dL (32-36); Mean Corpuscular Hgb 31.4 pg (27.0-32.0); Mean Corpuscular Volume 96.9 fL (81-99); Mean Platelet Vol. 10.7 fl (6.2-12.0); Monocyte# 0.41 X10^3/uL; Monocyte% 11.4 % (0-10); NRBC Flagged by Analyzer 0 % (0-5); Neutrophil # 1.44 X10^3/uL (2.7-7.7); Platelet Count 210 K/mm3 (150-450); RBC Distribution Width CV 12.7 % (11.6-14.6); RBC Distribution Width SD 44.5 fl (35.1-43.9); Red Blood Count 3.53 M/mm3 (4.2-5.4); White Blood Count 3.6 K/mm3 (4.4-11.0)
[2021-07-23 15:17] LABS: ALB/GLOB Ratio 1.1 RATIO (0.9-2.4); AST(SGOT) 22 U/L (15-37); Alanine Aminotransfer ALT/SGPT 31 U/L (13-56); Albumin, Serum 3.4 g/dL (3.2-5.0); Alkaline Phosphatase 107 U/L (45-117); Anion Gap 8 (5-15); BUN 16 mg/dL (7-18); BUN/Creat Ratio 20.2 RATIO (10-20); Calcium,Total 8.9 mg/dL (8.5-10.1); Chloride 111 mmol/L (98-107); Creatinine, Serum 0.79 mg/dL (0.55-1.02); EST Glomerular Filtration Rate 80 mL/min (>60); Est Glom Filt Rate - Afr Amer 96 mL/min (>60); Glucose 84 mg/dL (74-106); Potassium 3.4 mmol/L (3.5-5.1); Protein, Total 6.4 g/dL (6.4-8.2); Sodium Level 143 mmol/L (136-145)
== END ==
PROVIDERS: PCP Student in an Organized Health Care Education/Training Program; Referring Provider Internal Medicine Rheumatology; Visit Provider Internal Medicine Rheumatology
DX: L40.59 Other psoriatic arthropathy (principal); M79.7 Fibromyalgia; M17.11 Unilateral primary osteoarthritis, right knee; L40.8 Other psoriasis; K21.9 Gastro-esophageal reflux disease without esophagitis; M48.061 Spinal stenosis, lumbar region without neurogenic claudication; M48.02 Spinal stenosis, cervical region; K58.0 Irritable bowel syndrome with diarrhea; N32.81 Overactive bladder; F41.9 Anxiety disorder, unspecified; F32.89 Other specified depressive episodes; J45.909 Unspecified asthma, uncomplicated; Z98.84 Bariatric surgery status; Z79.899 Other long term (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 therapy
CPT/HCPCS: 36415; 80053; 85025

== ENCOUNTER → 2021-08-27 14:39 | Outpatient (CLI) | payer MEDICARE, BC, SELFPAY ==
--- NOTE | 2021-08-27 14:45 | CT_ITS ---
STUDY: CT LEFT ANKLE WITHOUT CONTRAST REASON FOR EXAM: Female, 55 years old. LFT HIND FOOT PAIN RADIATION DOSAGE (If Supplied By Facility): CTDIvol = ( 15.35 ) mGy, DLP = ( 470.12 ) mGycm TECHNIQUE: Thin section transaxial imaging of the ankle was obtained, with sagittal and coronal reconstructed images. Individualized dose optimization techniques were used for this CT. COMPARISON: Comparison is made with prior radiographs dated 05/12/2020. FINDINGS: Normal visualized distal tibia and fibula. Normal tibiotalar articulation and talar dome. The patient is status post arthrodesis of the talocalcaneal joint with 2 metallic screws. The patient is status post arthrodesis of the first cuneiform metatarsal joint. The hardware is intact. Normal navicular-cuneiform, cuneiform tarsal bones and intercuneiform articulations. Normal tarsometatarsal articulations and visualized metatarsi. Mild degree of residual soft tissue swelling. CT/Extremity Lower without Contra IMPRESSION: Status post arthrodesis of the talocalcaneal joint as well as the first cuneiform metatarsal joint. The hardware is intact. Mild degree of residual soft tissue swelling. Electronically Signed: Anshul Sams MD at 14:31 EDT , Service support ,
== END ==
PROVIDERS: PCP Student in an Organized Health Care Education/Training Program; Referring Provider Podiatrist; Visit Provider Podiatrist
DX: M25.572 Pain in left ankle and joints of left foot (principal)
CPT/HCPCS: 73700

== ENCOUNTER → 2021-10-09 15:39 | Outpatient (CLI) | payer MEDICARE, BC, SELFPAY ==
[2021-10-09 17:58] LABS: Absolute Lymphocyte Count 1.92 X10^3/uL (0.83-4.51); Basophil# 0.04 X10^3/uL; Basophil% 1.2 % (0-1); Eosinophil# 0.06 X10^3/uL; Eosinophils% 1.8 % (0-5); Hematocrit 37.8 % (37-47); Hemoglobin 11.9 g/dL (12.0-15.0); Lymphocyte # 1.92 X10^3/ul (0.83-4.51); Lymphocyte % 56.6 % (19-41); Mean Corp Hgb Conc 31.5 g/dL (32-36); Mean Corpuscular Volume 95.2 fL (81-99); Mean Platelet Vol. 11.1 fl (6.2-12.0); Monocyte# 0.33 X10^3/uL; Monocyte% 9.7 % (0-10); NRBC Flagged by Analyzer 0 % (0-5); Neutrophil # 1.04 X10^3/uL (2.7-7.7); Neutrophil % 30.7 % (47-70); Platelet Count 229 K/mm3 (150-450); RBC Distribution Width SD 49.7 fl (35.1-43.9); Red Blood Count 3.97 M/mm3 (4.2-5.4); White Blood Count 3.4 K/mm3 (4.4-11.0)
[2021-10-09 18:36] LABS: ALB/GLOB Ratio 1.3 RATIO (0.9-2.4); AST(SGOT) 21 U/L (15-37); Alanine Aminotransfer ALT/SGPT 28 U/L (13-56); Albumin, Serum 3.6 g/dL (3.2-5.0); Alkaline Phosphatase 98 U/L (45-117); Anion Gap 6 (5-15); BUN 19 mg/dL (7-18); Calcium,Total 9.1 mg/dL (8.5-10.1); Chloride 105 mmol/L (98-107); Creatinine, Serum 0.73 mg/dL (0.55-1.02); EST Glomerular Filtration Rate 87 mL/min (>60); Est Glom Filt Rate - Afr Amer 106 mL/min (>60); Globulin 2.8 g/dL (2.2-4.2); Glucose 84 mg/dL (74-106); Protein, Total 6.4 g/dL (6.4-8.2); Sodium Level 142 mmol/L (136-145)
== END ==
PROVIDERS: PCP Student in an Organized Health Care Education/Training Program; Referring Provider Internal Medicine Rheumatology; Visit Provider Internal Medicine Rheumatology
DX: L40.59 Other psoriatic arthropathy (principal); M79.7 Fibromyalgia; M17.11 Unilateral primary osteoarthritis, right knee; L40.8 Other psoriasis; K21.9 Gastro-esophageal reflux disease without esophagitis; M48.061 Spinal stenosis, lumbar region without neurogenic claudication; M48.02 Spinal stenosis, cervical region; K58.0 Irritable bowel syndrome with diarrhea; N32.81 Overactive bladder; Z79.899 Other long term (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 therapy
CPT/HCPCS: 36415; 80053; 85025

== ENCOUNTER 2022-01-08 13:21 | Outpatient (CLI) | payer MEDICARE, BC, SELFPAY ==
[2022-01-08 15:33] LABS: Absolute Lymphocyte Count 2.01 X10^3/uL (0.83-4.51); Absolute Neutrophil Count 2.2 X10^3/uL (2.0-7.7); Basophil# 0.05 X10^3/uL; Basophil% 1.1 % (0-1); Eosinophil# 0.06 X10^3/uL; Eosinophils% 1.3 % (0-5); Hematocrit 34.2 % (37-47); Hemoglobin 10.8 g/dL (12.0-15.0); Lymphocyte # 2.01 X10^3/ul (0.83-4.51); Lymphocyte % 42.6 % (19-41); Mean Corp Hgb Conc 31.6 g/dL (32-36); Mean Corpuscular Hgb 31.1 pg (27.0-32.0); Mean Corpuscular Volume 98.6 fL (81-99); Mean Platelet Vol. 11.3 fl (6.2-12.0); Monocyte# 0.42 X10^3/uL; Monocyte% 8.9 % (0-10); NRBC Flagged by Analyzer 0 % (0-5); Neutrophil # 2.17 X10^3/uL (2.7-7.7); Neutrophil % 45.9 % (47-70); Platelet Count 249 K/mm3 (150-450); RBC Distribution Width CV 14.5 % (11.6-14.6); Red Blood Count 3.47 M/mm3 (4.2-5.4); White Blood Count 4.7 K/mm3 (4.4-11.0)
[2022-01-08 15:53] LABS: ALB/GLOB Ratio 1.2 RATIO (0.9-2.4); AST(SGOT) 40 U/L (15-37); Alanine Aminotransfer ALT/SGPT 85 U/L (13-56); Albumin, Serum 3.8 g/dL (3.2-5.0); Alkaline Phosphatase 132 U/L (45-117); Anion Gap 3 (5-15); BUN 20 mg/dL (7-18); BUN/Creat Ratio 30.5 RATIO (10-20); Chloride 108 mmol/L (98-107); Creatinine, Serum 0.66 mg/dL (0.55-1.02); EST Glomerular Filtration Rate 99 mL/min (>60); Est Glom Filt Rate - Afr Amer 120 mL/min (>60); Globulin 3.1 g/dL (2.2-4.2); Glucose 86 mg/dL (74-106); Potassium 3.7 mmol/L (3.5-5.1); Protein, Total 6.9 g/dL (6.4-8.2); Sodium Level 143 mmol/L (136-145)
== END 2022-01-08 23:59 | disposition home or self-care (01) ==
LOC: MTLAB 13:22
PROVIDERS: PCP Student in an Organized Health Care Education/Training Program; Referring Provider Internal Medicine Rheumatology; Visit Provider Internal Medicine Rheumatology
DX: L40.59 Other psoriatic arthropathy (principal); M79.7 Fibromyalgia; M17.11 Unilateral primary osteoarthritis, right knee; L40.8 Other psoriasis; K21.9 Gastro-esophageal reflux disease without esophagitis; M48.061 Spinal stenosis, lumbar region without neurogenic claudication; M48.02 Spinal stenosis, cervical region; K58.0 Irritable bowel syndrome with diarrhea; Z79.899 Other long term (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 therapy
CPT/HCPCS: 36415; 80053; 85025

== ENCOUNTER → 2022-07-09 | Outpatient (CLI) | payer MEDICARE, BC, SELFPAY ==
[2022-07-09 18:08] LABS: Absolute Lymphocyte Count 1.59 X10^3/uL (0.83-4.51); Absolute Neutrophil Count 1.2 X10^3/uL (2.0-7.7); Basophil# 0.05 X10^3/uL; Basophil% 1.6 % (0-1); Eosinophil# 0.03 X10^3/uL; Eosinophils% 0.9 % (0-5); Hemoglobin 10.6 g/dL (12.0-15.0); Lymphocyte # 1.59 X10^3/ul (0.83-4.51); Lymphocyte % 49.5 % (19-41); Mean Corp Hgb Conc 31.2 g/dL (32-36); Mean Corpuscular Hgb 29.1 pg (27.0-32.0); Mean Corpuscular Volume 93.4 fL (81-99); Monocyte% 9.3 % (0-10); NRBC Flagged by Analyzer 0 % (0-5); Neutrophil # 1.24 X10^3/uL (2.7-7.7); Neutrophil % 38.7 % (47-70); Platelet Count 288 K/mm3 (150-450); RBC Distribution Width CV 15.7 % (11.6-14.6); RBC Distribution Width SD 53.9 fl (35.1-43.9); Red Blood Count 3.64 M/mm3 (4.2-5.4); White Blood Count 3.2 K/mm3 (4.4-11.0)
[2022-07-09 18:28] LABS: ALB/GLOB Ratio 1.2 RATIO (0.9-2.4); AST(SGOT) 27 U/L (15-37); Alanine Aminotransfer ALT/SGPT 37 U/L (13-56); Albumin, Serum 3.4 g/dL (3.2-5.0); Alkaline Phosphatase 90 U/L (45-117); Anion Gap 5 (5-15); BUN 13 mg/dL (7-18); BUN/Creat Ratio 18.1 RATIO (10-20); Calcium,Total 8.5 mg/dL (8.5-10.1); Chloride 108 mmol/L (98-107); Creatinine, Serum 0.72 mg/dL (0.55-1.02); EST Glomerular Filtration Rate 89 mL/min (>60); Est Glom Filt Rate - Afr Amer 108 mL/min (>60); Globulin 2.8 g/dL (2.2-4.2); Glucose 105 mg/dL (74-106); Potassium 3.8 mmol/L (3.5-5.1); Protein, Total 6.2 g/dL (6.4-8.2); Sodium Level 145 mmol/L (136-145)
== END | disposition home or self-care (01) ==
LOC: LAB.FUTURE 14:26 → MTLAB 14:28
PROVIDERS: PCP Student in an Organized Health Care Education/Training Program; Referring Provider Internal Medicine Rheumatology; Visit Provider Internal Medicine Rheumatology
DX: L40.59 Other psoriatic arthropathy (principal); M79.7 Fibromyalgia; M17.11 Unilateral primary osteoarthritis, right knee; L40.8 Other psoriasis; K21.9 Gastro-esophageal reflux disease without esophagitis; M48.061 Spinal stenosis, lumbar region without neurogenic claudication; M48.02 Spinal stenosis, cervical region; K58.0 Irritable bowel syndrome with diarrhea; F41.9 Anxiety disorder, unspecified; F32.89 Other specified depressive episodes; J45.909 Unspecified asthma, uncomplicated; M81.0 Age-related osteoporosis without current pathological fracture; Z98.84 Bariatric surgery status; Z79.899 Other long term (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 therapy
CPT/HCPCS: 36415; 80053; 85025

== ENCOUNTER → 2022-07-24 | Outpatient (CLI) | payer MEDICARE, BC, SELFPAY ==
[2022-07-24] MEDS: Methacholine Chloride 18 ml neb kit INHALATION (13:05)
--- NOTE | 2022-07-24 13:37 | CPS ---
Patient was given 5 doses from Methacholine box in correct ascending order. Patient had a 25% drop in FEV1 on the 4th medicated dose which is the 5th vial. The last vial of Methacholine, 16mg/ml dose, was disposed of in the [facility] waste bin.
--- NOTE | 2022-07-25 08:08 | BRONCHALL ---
Bronchoprovocation Challenge Bronchoprovocation Challenge Bronchoprovocation Challenge: INTRODUCTION: The patient is a 56-year-old female that presents for a bronchoprovocation challenge secondary to a diagnosis of asthma. Respiratory therapist reported good patient effort and reproducible results. INTERPRETATION: Initial spirometry did not show any large airways obstructive ventilatory defect and preserved airflows throughout. The patient was then given progressively increasing doses of methacholine in a standardized fashion. At the highest level, the patient did experience a 25% decrease in FEV1, indicating a positive test. The PD 20 FEV1 was noted to be 0.133 IMPRESSION: Positive methacholine challenge in a pattern consistent with mild airway hyperresponsiveness.
== END | disposition home or self-care (01) ==
LOC: PSN 12:56
PROVIDERS: PCP Student in an Organized Health Care Education/Training Program; Referring Provider Physician Assistant; Visit Provider Physician Assistant
DX: J45.50 Severe persistent asthma, uncomplicated (principal)
CPT/HCPCS: 94070; 95070

== ENCOUNTER → 2022-10-09 | Outpatient (CLI) | payer MEDICARE, BC, SELFPAY ==
[2022-10-09 17:47] LABS: Absolute Neutrophil Count 1.6 X10^3/uL (2.0-7.7); Basophil# 0.05 X10^3/uL; Basophil% 1.2 % (0-1); Eosinophil# 0.05 X10^3/uL; Eosinophils% 1.2 % (0-5); Hematocrit 33.6 % (37-47); Hemoglobin 10.4 g/dL (12.0-15.0); Lymphocyte % 46.9 % (19-41); Mean Corpuscular Hgb 28.2 pg (27.0-32.0); Mean Corpuscular Volume 91.1 fL (81-99); Mean Platelet Vol. 10.2 fl (6.2-12.0); Monocyte# 0.51 X10^3/uL; NRBC Flagged by Analyzer 0 % (0-5); Neutrophil # 1.64 X10^3/uL (2.7-7.7); Neutrophil % 38.5 % (47-70); Platelet Count 284 K/mm3 (150-450); RBC Distribution Width CV 16.4 % (11.6-14.6); Red Blood Count 3.69 M/mm3 (4.2-5.4); White Blood Count 4.3 K/mm3 (4.4-11.0)
[2022-10-09 19:01] LABS: ALB/GLOB Ratio 1.5 RATIO (0.9-2.4); AST(SGOT) 23 U/L (15-37); Alanine Aminotransfer ALT/SGPT 28 U/L (13-56); Albumin, Serum 3.8 g/dL (3.2-5.0); Alkaline Phosphatase 99 U/L (45-117); Anion Gap 2 (5-15); BUN 21 mg/dL (7-18); BUN/Creat Ratio 33.2 RATIO (10-20); Calcium,Total 8.6 mg/dL (8.5-10.1); Chloride 111 mmol/L (98-107); Creatinine, Serum 0.63 mg/dL (0.55-1.02); EST Glomerular Filtration Rate 103 mL/min (>60); Est Glom Filt Rate - Afr Amer 124 mL/min (>60); Globulin 2.6 g/dL (2.2-4.2); Glucose 39 mg/dL (74-106); Potassium 4.4 mmol/L (3.5-5.1); Protein, Total 6.4 g/dL (6.4-8.2); Sodium Level 144 mmol/L (136-145)
== END | disposition home or self-care (01) ==
LOC: MTLAB 14:17
PROVIDERS: PCP Student in an Organized Health Care Education/Training Program; Referring Provider Internal Medicine Rheumatology; Visit Provider Internal Medicine Rheumatology
DX: L40.59 Other psoriatic arthropathy (principal); M79.7 Fibromyalgia; M17.0 Bilateral primary osteoarthritis of knee; M18.12 Unilateral primary osteoarthritis of first carpometacarpal joint, left hand; L40.8 Other psoriasis; K21.9 Gastro-esophageal reflux disease without esophagitis; M48.061 Spinal stenosis, lumbar region without neurogenic claudication; M48.02 Spinal stenosis, cervical region; K58.0 Irritable bowel syndrome with diarrhea; N32.81 Overactive bladder; F41.9 Anxiety disorder, unspecified; F32.89 Other specified depressive episodes; J45.909 Unspecified asthma, uncomplicated; M81.0 Age-related osteoporosis without current pathological fracture; Z98.84 Bariatric surgery status; Z79.899 Other long term (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 therapy
CPT/HCPCS: 36415; 80053; 85025

== ENCOUNTER → 2022-12-09 | Outpatient (CLI) | payer MEDICARE, BC, SELFPAY ==
[2022-12-09 17:46] LABS: Absolute Lymphocyte Count 1.34 X10^3/uL (0.83-4.51); Absolute Neutrophil Count 8.3 X10^3/uL (2.0-7.7); Basophil# 0.05 X10^3/uL; Basophil% 0.5 % (0-1); Eosinophil# 0.11 X10^3/uL; Eosinophils% 1.1 % (0-5); Hematocrit 34.5 % (37-47); Hemoglobin 10.6 g/dL (12.0-15.0); Lymphocyte # 1.34 X10^3/ul (0.83-4.51); Lymphocyte % 12.8 % (19-41); Mean Corp Hgb Conc 30.7 g/dL (32-36); Mean Corpuscular Hgb 27.8 pg (27.0-32.0); Mean Corpuscular Volume 90.6 fL (81-99); Mean Platelet Vol. 9.8 fl (6.2-12.0); Monocyte% 5.7 % (0-10); NRBC Flagged by Analyzer 0 % (0-5); Neutrophil # 8.31 X10^3/uL (2.7-7.7); Neutrophil % 79.6 % (47-70); Platelet Count 316 K/mm3 (150-450); RBC Distribution Width CV 16.1 % (11.6-14.6); RBC Distribution Width SD 54.3 fl (35.1-43.9); Red Blood Count 3.81 M/mm3 (4.2-5.4); White Blood Count 10.4 K/mm3 (4.4-11.0)
[2022-12-09 18:47] LABS: ALB/GLOB Ratio 1.2 RATIO (0.9-2.4); AST(SGOT) 19 U/L (15-37); Alanine Aminotransfer ALT/SGPT 26 U/L (13-56); Albumin, Serum 3.7 g/dL (3.2-5.0); Alkaline Phosphatase 121 U/L (45-117); Anion Gap 8 (5-15); BUN 23 mg/dL (7-18); BUN/Creat Ratio 32.2 RATIO (10-20); Calcium,Total 8.8 mg/dL (8.5-10.1); Chloride 105 mmol/L (98-107); Creatinine, Serum 0.72 mg/dL (0.55-1.02); EST Glomerular Filtration Rate 89 mL/min (>60); Est Glom Filt Rate - Afr Amer 108 mL/min (>60); Globulin 3.2 g/dL (2.2-4.2); Glucose 97 mg/dL (74-106); Potassium 3.8 mmol/L (3.5-5.1); Protein, Total 6.9 g/dL (6.4-8.2); Sodium Level 140 mmol/L (136-145)
== END | disposition home or self-care (01) ==
LOC: MTLAB 16:51
PROVIDERS: PCP Student in an Organized Health Care Education/Training Program; Referring Provider Internal Medicine Rheumatology; Visit Provider Internal Medicine Rheumatology
DX: L40.59 Other psoriatic arthropathy (principal); M79.7 Fibromyalgia; M17.0 Bilateral primary osteoarthritis of knee; M18.12 Unilateral primary osteoarthritis of first carpometacarpal joint, left hand; L40.8 Other psoriasis; K21.9 Gastro-esophageal reflux disease without esophagitis; M48.061 Spinal stenosis, lumbar region without neurogenic claudication; M48.02 Spinal stenosis, cervical region; K58.0 Irritable bowel syndrome with diarrhea; N32.81 Overactive bladder; F41.9 Anxiety disorder, unspecified; F32.89 Other specified depressive episodes; J45.909 Unspecified asthma, uncomplicated; M81.0 Age-related osteoporosis without current pathological fracture; Z98.84 Bariatric surgery status; Z79.899 Other long term (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 therapy
CPT/HCPCS: 36415; 80053; 85025

== ENCOUNTER → 2023-01-10 | Outpatient (CLI) | payer MEDICARE, BC, SELFPAY ==
[2023-01-10 17:55] LABS: Absolute Lymphocyte Count 1.52 X10^3/uL (0.83-4.51); Absolute Neutrophil Count 3.5 X10^3/uL (2.0-7.7); Basophil# 0.06 X10^3/uL; Basophil% 1.1 % (0-1); Eosinophil# 0.15 X10^3/uL; Eosinophils% 2.7 % (0-5); Hematocrit 33.8 % (37-47); Hemoglobin 10.2 g/dL (12.0-15.0); Lymphocyte # 1.52 X10^3/ul (0.83-4.51); Lymphocyte % 26.9 % (19-41); Mean Corp Hgb Conc 30.2 g/dL (32-36); Mean Corpuscular Hgb 27.3 pg (27.0-32.0); Mean Corpuscular Volume 90.6 fL (81-99); Mean Platelet Vol. 10.2 fl (6.2-12.0); Monocyte# 0.41 X10^3/uL; Monocyte% 7.2 % (0-10); NRBC Flagged by Analyzer 0 % (0-5); Neutrophil # 3.49 X10^3/uL (2.7-7.7); Neutrophil % 61.6 % (47-70); Platelet Count 243 K/mm3 (150-450); RBC Distribution Width CV 15.9 % (11.6-14.6); RBC Distribution Width SD 52.8 fl (35.1-43.9); Red Blood Count 3.73 M/mm3 (4.2-5.4); White Blood Count 5.7 K/mm3 (4.4-11.0)
[2023-01-10 18:06] LABS: ALB/GLOB Ratio 1.2 RATIO (0.9-2.4); AST(SGOT) 27 U/L (15-37); Alanine Aminotransfer ALT/SGPT 29 U/L (13-56); Albumin, Serum 3.7 g/dL (3.2-5.0); Alkaline Phosphatase 125 U/L (45-117); Anion Gap 4 (5-15); BUN 18 mg/dL (7-18); Calcium,Total 8.6 mg/dL (8.5-10.1); Chloride 109 mmol/L (98-107); Creatinine, Serum 0.82 mg/dL (0.55-1.02); EST Glomerular Filtration Rate 76 mL/min (>60); Est Glom Filt Rate - Afr Amer 92 mL/min (>60); Glucose 119 mg/dL (74-106); Potassium 3.5 mmol/L (3.5-5.1); Protein, Total 6.7 g/dL (6.4-8.2); Sodium Level 144 mmol/L (136-145)
== END | disposition home or self-care (01) ==
LOC: MTLAB 14:45
PROVIDERS: PCP Student in an Organized Health Care Education/Training Program; Referring Provider Internal Medicine Rheumatology; Visit Provider Internal Medicine Rheumatology
DX: L40.59 Other psoriatic arthropathy (principal); Z79.899 Other long term (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 therapy
CPT/HCPCS: 36415; 80053; 85025

== ENCOUNTER → 2023-03-10 | Outpatient (CLI) | payer MEDICARE, BC, SELFPAY ==
[2023-03-10 15:18] LABS: Absolute Lymphocyte Count 1.69 X10^3/uL (0.83-4.51); Absolute Neutrophil Count 1.7 X10^3/uL (2.0-7.7); Basophil# 0.05 X10^3/uL; Basophil% 1.3 % (0-1); Eosinophil# 0.05 X10^3/uL; Eosinophils% 1.3 % (0-5); Hematocrit 33.4 % (37-47); Hemoglobin 10.1 g/dL (12.0-15.0); Lymphocyte # 1.69 X10^3/ul (0.83-4.51); Lymphocyte % 44.6 % (19-41); Mean Corp Hgb Conc 30.2 g/dL (32-36); Mean Corpuscular Hgb 26.9 pg (27.0-32.0); Mean Corpuscular Volume 88.8 fL (81-99); Mean Platelet Vol. 10.4 fl (6.2-12.0); Monocyte% 7.9 % (0-10); NRBC Flagged by Analyzer 0 % (0-5); Neutrophil # 1.69 X10^3/uL (2.7-7.7); Neutrophil % 44.6 % (47-70); Platelet Count 301 K/mm3 (150-450); RBC Distribution Width SD 54.7 fl (35.1-43.9); Red Blood Count 3.76 M/mm3 (4.2-5.4); White Blood Count 3.8 K/mm3 (4.4-11.0)
[2023-03-10 15:34] LABS: ALB/GLOB Ratio 1.3 RATIO (0.9-2.4); AST(SGOT) 22 U/L (15-37); Alanine Aminotransfer ALT/SGPT 24 U/L (13-56); Albumin, Serum 3.8 g/dL (3.2-5.0); Alkaline Phosphatase 102 U/L (45-117); Anion Gap 6 (5-15); BUN 25 mg/dL (7-18); Calcium,Total 8.8 mg/dL (8.5-10.1); Chloride 112 mmol/L (98-107); Creatinine, Serum 0.76 mg/dL (0.55-1.02); EST Glomerular Filtration Rate 83 mL/min (>60); Est Glom Filt Rate - Afr Amer 101 mL/min (>60); Glucose 70 mg/dL (74-106); Potassium 3.7 mmol/L (3.5-5.1); Protein, Total 6.8 g/dL (6.4-8.2); Sodium Level 145 mmol/L (136-145)
== END | disposition home or self-care (01) ==
PROVIDERS: PCP Student in an Organized Health Care Education/Training Program; Referring Provider Internal Medicine Rheumatology; Visit Provider Internal Medicine Rheumatology
DX: L40.59 Other psoriatic arthropathy (principal); Z79.899 Other long term (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 therapy
CPT/HCPCS: 36415; 80053; 85025

== ENCOUNTER → 2023-05-09 | Outpatient (CLI) | payer MEDICARE, BC, SELFPAY ==
--- NOTE | 2023-05-09 13:06 | MRI_ITS ---
STUDY: MRI RIGHT KNEE REASON FOR EXAM: Female, 57 years old. Knee pain TECHNIQUE: Standardized fat and water weighted pulse sequences were obtained in all 3 orthogonal planes. COMPARISON: X-ray of the right knee dated April 28, 2023 FINDINGS: Normal medial meniscus. There is diffuse, less than 50% thickness articular cartilage loss of the medial femorotibial compartment. Normal medial femoral condyle and tibial plateau. Normal medial collateral ligamentous complex (MCL). Normal distal semimembranosus, gracilis and semitendinosus tendons. A small free edge radial tear is present in the middle one third aspect of the posterior horn of lateral meniscus best seen on image #17/24 series 5, sagittal sequence. Normal remaining aspects of the lateral meniscus There is diffuse, less than 50% thickness articular cartilage loss of the lateral femorotibial compartment. Normal lateral femoral condyle and tibial plateau. Normal proximal tibiofibular articulation. Normal lateral collateral (fibular) ligament. Normal popliteus tendon. Normal biceps femoris tendon. Normal anterior cruciate ligament (ACL). Normal posterior cruciate ligament (PCL). Normal congruent patellofemoral articulation. There is diffuse, moderate to full thickness articular cartilage loss of the patellofemoral compartment. Normal medial and lateral patellar retinaculum. Normal quadriceps tendon. Normal patellar tendon. Normal Hoffa''s fat pad. There is a small volume joint effusion. Mild subcutaneous edema is present anterior aspect of the joint. The otherwise visualized osseous structures are unremarkable. MRI/Lower Ext Joint Only (Routine) IMPRESSION: 1. Moderate to full-thickness loss of cartilage over the patella 2. Small radial tear of the posterior horn of lateral meniscus Electronically Signed: Arthur Mcdonnell MD at 11:17 EDT ,
--- NOTE | 2023-05-09 13:09 | MRI_ITS ---
STUDY: MRI LEFT KNEE REASON FOR EXAM: Female, 57 years old. Knee pain TECHNIQUE: Standardized fat and water weighted pulse sequences were obtained in all 3 orthogonal planes. COMPARISON: X-ray of the left knee dated November 28, 2022 FINDINGS: Normal medial meniscus. There is diffuse, greater than 50% thickness articular cartilage loss of the medial femorotibial compartment. Normal medial femoral condyle and tibial plateau. Normal medial collateral ligamentous complex (MCL). Normal distal semimembranosus, gracilis and semitendinosus tendons. Normal lateral meniscus. There is diffuse, less than 50% thickness articular cartilage loss of the lateral femorotibial compartment. Normal lateral femoral condyle and tibial plateau. Normal proximal tibiofibular articulation. Normal lateral collateral (fibular) ligament. Normal popliteus tendon. Normal biceps femoris tendon. Normal anterior cruciate ligament (ACL). Normal posterior cruciate ligament (PCL). Normal congruent patellofemoral articulation. There is diffuse, greater than 50% thickness articular cartilage loss of the patellofemoral compartment. Normal medial and lateral patellar retinaculum. Normal quadriceps tendon. Normal patellar tendon. Normal Hoffa''s fat pad. A small Eisenberg''s cyst is present. A small joint effusion is present. A small 2.0 cm ganglion cyst is also present at the musculotendinous junction of the popliteus. The soft tissues are unremarkable. The otherwise visualized osseous structures are unremarkable. MRI/Lower Ext Joint Only (Routine) IMPRESSION: 1. Mild to moderate cartilage loss in all 3 compartments 2. Small knee joint effusion 3. No demonstrated meniscal tear Electronically Signed: Arthur Mcdonnell MD at 11:11 EDT ,
== END | disposition home or self-care (01) ==
LOC: MRI 12:54
PROVIDERS: PCP Student in an Organized Health Care Education/Training Program; Referring Provider Physician Assistant; Visit Provider Physician Assistant
DX: M25.562 Pain in left knee (principal); M25.561 Pain in right knee
CPT/HCPCS: 73721

== ENCOUNTER → 2023-08-07 | Outpatient (CLI) | payer MEDICARE, BC, SELFPAY ==
[2023-08-07 17:46] LABS: Absolute Neutrophil Count 3.4 X10^3/uL (2.0-7.7); Basophil# 0.03 X10^3/uL; Basophil% 0.6 % (0-1); Eosinophil# 0.02 X10^3/uL; Eosinophils% 0.4 % (0-5); Hematocrit 40.8 % (37-47); Hemoglobin 12.4 g/dL (12.0-15.0); Lymphocyte % 26.7 % (19-41); Mean Corp Hgb Conc 30.4 g/dL (32-36); Mean Corpuscular Hgb 29.1 pg (27.0-32.0); Mean Corpuscular Volume 95.8 fL (81-99); Mean Platelet Vol. 9.9 fl (6.2-12.0); Monocyte# 0.41 X10^3/uL; Monocyte% 7.8 % (0-10); NRBC Flagged by Analyzer 0 % (0-5); Neutrophil # 3.38 X10^3/uL (2.7-7.7); Neutrophil % 64.3 % (47-70); Platelet Count 271 K/mm3 (150-450); RBC Distribution Width CV 18.4 % (11.6-14.6); RBC Distribution Width SD 64.6 fl (35.1-43.9); Red Blood Count 4.26 M/mm3 (4.2-5.4); White Blood Count 5.3 K/mm3 (4.4-11.0)
[2023-08-07 18:27] LABS: ALB/GLOB Ratio 1.4 RATIO (0.9-2.4); AST(SGOT) 15 U/L (15-37); Alanine Aminotransfer ALT/SGPT 24 U/L (13-56); Alkaline Phosphatase 81 U/L (45-117); Anion Gap 5 (5-15); BUN 12 mg/dL (7-18); Calcium,Total 8.9 mg/dL (8.5-10.1); Chloride 113 mmol/L (98-107); EST Glomerular Filtration Rate 78 mL/min (>60); Est Glom Filt Rate - Afr Amer 95 mL/min (>60); Globulin 2.8 g/dL (2.2-4.2); Glucose 90 mg/dL (74-106); Potassium 3.5 mmol/L (3.5-5.1); Protein, Total 6.8 g/dL (6.4-8.2); Sodium Level 142 mmol/L (136-145)
== END | disposition home or self-care (01) ==
LOC: MTLAB 15:54
PROVIDERS: PCP Student in an Organized Health Care Education/Training Program; Referring Provider Internal Medicine Rheumatology; Visit Provider Internal Medicine Rheumatology
DX: L40.59 Other psoriatic arthropathy (principal); M18.12 Unilateral primary osteoarthritis of first carpometacarpal joint, left hand; L40.8 Other psoriasis; Z79.899 Other long term (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 therapy
CPT/HCPCS: 36415; 80053; 85025

== ENCOUNTER → 2023-08-08 | Outpatient (CLI) | payer MEDICARE, BC, SELFPAY ==
[2023-08-12 12:09] LABS: QNTFERON TB Mitogen Value > 10.00 IU/mL (.); QNTFERON TB Nil Value 0.01 IU/mL (.); QNTFERON TB1+ Ag Value 0.06 IU/mL (.); QNTFERON TB2+ Ag Value 0.05 IU/mL (.); QNTIFERON TB Positive Criteria Negative (Negative)
== END | disposition home or self-care (01) ==
LOC: MTLAB 16:08
PROVIDERS: PCP Student in an Organized Health Care Education/Training Program; Referring Provider Internal Medicine Rheumatology; Visit Provider Internal Medicine Rheumatology
DX: L40.59 Other psoriatic arthropathy (principal); M79.7 Fibromyalgia; M17.0 Bilateral primary osteoarthritis of knee; M18.12 Unilateral primary osteoarthritis of first carpometacarpal joint, left hand; Z79.899 Other long term (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 therapy
CPT/HCPCS: 36415; 86480

== ENCOUNTER → 2023-10-02 | Outpatient (CLI) | payer MEDICARE, BC, SELFPAY ==
[2023-10-02 17:48] LABS: Absolute Lymphocyte Count 2.34 X10^3/uL (0.83-4.51); Absolute Neutrophil Count 3.4 X10^3/uL (2.0-7.7); Basophil# 0.05 X10^3/uL; Basophil% 0.8 % (0-1); Eosinophil# 0.08 X10^3/uL; Eosinophils% 1.3 % (0-5); Hematocrit 42.1 % (37-47); Hemoglobin 13.4 g/dL (12.0-15.0); Lymphocyte # 2.34 X10^3/ul (0.83-4.51); Lymphocyte % 36.9 % (19-41); Mean Corp Hgb Conc 31.8 g/dL (32-36); Mean Corpuscular Hgb 30.9 pg (27.0-32.0); Mean Platelet Vol. 9.1 fl (6.2-12.0); Monocyte# 0.47 X10^3/uL; Monocyte% 7.4 % (0-10); NRBC Flagged by Analyzer 0 % (0-5); Neutrophil # 3.39 X10^3/uL (2.7-7.7); Neutrophil % 53.3 % (47-70); Platelet Count 309 K/mm3 (150-450); RBC Distribution Width CV 14.9 % (11.6-14.6); Red Blood Count 4.34 M/mm3 (4.2-5.4); White Blood Count 6.4 K/mm3 (4.4-11.0)
[2023-10-02 18:08] LABS: ALB/GLOB Ratio 1.1 RATIO (0.9-2.4); AST(SGOT) 22 U/L (15-37); Alanine Aminotransfer ALT/SGPT 48 U/L (13-56); Albumin, Serum 3.8 g/dL (3.2-5.0); Alkaline Phosphatase 95 U/L (45-117); Anion Gap 5 (5-15); BUN 23 mg/dL (7-18); BUN/Creat Ratio 29.8 RATIO (10-20); Calcium,Total 8.5 mg/dL (8.5-10.1); Chloride 105 mmol/L (98-107); Creatinine, Serum 0.77 mg/dL (0.55-1.02); EST Glomerular Filtration Rate 81 mL/min (>60); Est Glom Filt Rate - Afr Amer 98 mL/min (>60); Globulin 3.4 g/dL (2.2-4.2); Glucose 84 mg/dL (74-106); Potassium 4.1 mmol/L (3.5-5.1); Protein, Total 7.2 g/dL (6.4-8.2); Sodium Level 141 mmol/L (136-145)
== END | disposition home or self-care (01) ==
LOC: MTLAB 16:35
PROVIDERS: PCP Student in an Organized Health Care Education/Training Program; Referring Provider Internal Medicine Rheumatology; Visit Provider Internal Medicine Rheumatology
DX: L40.59 Other psoriatic arthropathy (principal); M79.7 Fibromyalgia; M17.0 Bilateral primary osteoarthritis of knee; M18.12 Unilateral primary osteoarthritis of first carpometacarpal joint, left hand; Z79.899 Other long term (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 therapy
CPT/HCPCS: 36415; 80053; 85025

== ENCOUNTER → 2023-11-28 | Outpatient (CLI) | payer MEDICARE, SELFPAY ==
[2023-11-28 15:20] LABS: Absolute Lymphocyte Count 2.23 X10^3/uL (0.83-4.51); Absolute Neutrophil Count 3.4 X10^3/uL (2.0-7.7); Basophil# 0.04 X10^3/uL; Basophil% 0.6 % (0-1); Eosinophil# 0.05 X10^3/uL; Eosinophils% 0.8 % (0-5); Hematocrit 41.7 % (37-47); Hemoglobin 13.1 g/dL (12.0-15.0); Lymphocyte # 2.23 X10^3/ul (0.83-4.51); Lymphocyte % 35.9 % (19-41); Mean Corp Hgb Conc 31.4 g/dL (32-36); Mean Corpuscular Hgb 31.4 pg (27.0-32.0); Mean Platelet Vol. 9.7 fl (6.2-12.0); Monocyte# 0.43 X10^3/uL; Monocyte% 6.9 % (0-10); NRBC Flagged by Analyzer 0 % (0-5); Neutrophil # 3.43 X10^3/uL (2.7-7.7); Neutrophil % 55.2 % (47-70); Platelet Count 323 K/mm3 (150-450); RBC Distribution Width CV 13.7 % (11.6-14.6); RBC Distribution Width SD 50.2 fl (35.1-43.9); Red Blood Count 4.17 M/mm3 (4.2-5.4); White Blood Count 6.2 K/mm3 (4.4-11.0)
[2023-11-28 15:52] LABS: ALB/GLOB Ratio 1.3 RATIO (0.9-2.4); AST(SGOT) 17 U/L (15-37); Alanine Aminotransfer ALT/SGPT 32 U/L (13-56); Albumin, Serum 3.7 g/dL (3.2-5.0); Alkaline Phosphatase 77 U/L (45-117); Anion Gap 5 (5-15); BUN 18 mg/dL (7-18); BUN/Creat Ratio 25.8 RATIO (10-20); Calcium,Total 8.9 mg/dL (8.5-10.1); Chloride 110 mmol/L (98-107); EST Glomerular Filtration Rate 91 mL/min (>60); Est Glom Filt Rate - Afr Amer 110 mL/min (>60); Globulin 2.9 g/dL (2.2-4.2); Glucose 97 mg/dL (74-106); Potassium 3.8 mmol/L (3.5-5.1); Protein, Total 6.6 g/dL (6.4-8.2); Sodium Level 144 mmol/L (136-145)
== END | disposition home or self-care (01) ==
LOC: MTLAB 13:44
PROVIDERS: PCP Student in an Organized Health Care Education/Training Program; Referring Provider Internal Medicine Rheumatology; Visit Provider Internal Medicine Rheumatology
DX: L40.59 Other psoriatic arthropathy (principal); M79.7 Fibromyalgia; Z79.899 Other long term (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 therapy
CPT/HCPCS: 36415; 80053; 85025

== ENCOUNTER → 2024-02-20 | Outpatient (CLI) | payer MEDICARE, SELFPAY ==
[2024-02-20 15:36] LABS: Absolute Lymphocyte Count 2.08 X10^3/uL (0.83-4.51); Absolute Neutrophil Count 2.6 X10^3/uL (2.0-7.7); Basophil# 0.04 X10^3/uL; Basophil% 0.8 % (0-1); Eosinophil# 0.05 X10^3/uL; Eosinophils% 0.9 % (0-5); Hematocrit 39.8 % (37-47); Hemoglobin 12.6 g/dL (12.0-15.0); Lymphocyte # 2.08 X10^3/ul (0.83-4.51); Lymphocyte % 39.5 % (19-41); Mean Corp Hgb Conc 31.7 g/dL (32-36); Mean Corpuscular Hgb 31.4 pg (27.0-32.0); Mean Corpuscular Volume 99.3 fL (81-99); Monocyte# 0.46 X10^3/uL; Monocyte% 8.7 % (0-10); NRBC Flagged by Analyzer 0 % (0-5); Neutrophil # 2.63 X10^3/uL (2.7-7.7); Neutrophil % 49.9 % (47-70); POSITIVE COUNT YES; Platelet Count 184 K/mm3 (150-450); RBC Distribution Width CV 13.3 % (11.6-14.6); RBC Distribution Width SD 48.7 fl (35.1-43.9); Red Blood Count 4.01 M/mm3 (4.2-5.4); White Blood Count 5.3 K/mm3 (4.4-11.0)
[2024-02-20 16:09] LABS: ALB/GLOB Ratio 1.4 RATIO (0.9-2.4); AST(SGOT) 19 U/L (15-37); Alanine Aminotransfer ALT/SGPT 25 U/L (13-56); Albumin, Serum 3.7 g/dL (3.2-5.0); Alkaline Phosphatase 66 U/L (45-117); Anion Gap 5 (5-15); BUN 19 mg/dL (7-18); BUN/Creat Ratio 27.7 RATIO (10-20); Calcium,Total 8.6 mg/dL (8.5-10.1); Chloride 114 mmol/L (98-107); Creatinine, Serum 0.69 mg/dL (0.55-1.02); EST Glomerular Filtration Rate 93 mL/min (>60); Est Glom Filt Rate - Afr Amer 113 mL/min (>60); Globulin 2.6 g/dL (2.2-4.2); Glucose 74 mg/dL (74-106); Potassium 4.1 mmol/L (3.5-5.1); Protein, Total 6.3 g/dL (6.4-8.2); Sodium Level 144 mmol/L (136-145)
[2024-02-20 16:23] LABS: Differential Indicated SCAN CRITERIA MET
[2024-02-20 16:32] LABS: Platelet Estimate ADEQUATE (ADEQ)
[2024-02-20 16:33] LABS: Anisocytosis RARE; Platelet Morphology LARGE; Red Cell Morphology N CHROM NORMAL (NORM C&C)
== END | disposition home or self-care (01) ==
LOC: MTLAB 12:32
PROVIDERS: PCP Student in an Organized Health Care Education/Training Program; Referring Provider Internal Medicine Rheumatology; Visit Provider Internal Medicine Rheumatology
DX: L40.59 Other psoriatic arthropathy (principal); M79.7 Fibromyalgia; Z79.899 Other long term (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 therapy
CPT/HCPCS: 36415; 80053; 85025

== ENCOUNTER → 2024-05-24 | Outpatient (CLI) | payer MEDICARE, SELFPAY ==
[2024-05-24 17:40] LABS: Absolute Lymphocyte Count 1.48 X10^3/uL (0.83-4.51); Absolute Neutrophil Count 2.8 X10^3/uL (2.0-7.7); Basophil# 0.04 X10^3/uL; Basophil% 0.8 % (0-1); Eosinophil# 0.03 X10^3/uL; Eosinophils% 0.6 % (0-5); Hematocrit 41.8 % (37-47); Hemoglobin 13.3 g/dL (12.0-15.0); Lymphocyte # 1.48 X10^3/ul (0.83-4.51); Lymphocyte % 31.4 % (19-41); Mean Corp Hgb Conc 31.8 g/dL (32-36); Mean Corpuscular Hgb 31.9 pg (27.0-32.0); Mean Corpuscular Volume 100.2 fL (81-99); Mean Platelet Vol. 10.4 fl (6.2-12.0); Monocyte# 0.34 X10^3/uL; Monocyte% 7.2 % (0-10); NRBC Flagged by Analyzer 0 % (0-5); Neutrophil # 2.81 X10^3/uL (2.7-7.7); Neutrophil % 59.8 % (47-70); Platelet Count 241 K/mm3 (150-450); RBC Distribution Width CV 13.5 % (11.6-14.6); Red Blood Count 4.17 M/mm3 (4.2-5.4); White Blood Count 4.7 K/mm3 (4.4-11.0)
[2024-05-24 18:05] LABS: ALB/GLOB Ratio 1.5 RATIO (0.9-2.4); AST(SGOT) 18 U/L (15-37); Alanine Aminotransfer ALT/SGPT 19 U/L (13-56); Albumin, Serum 3.8 g/dL (3.2-5.0); Alkaline Phosphatase 80 U/L (45-117); Anion Gap 4 (5-15); BUN 17 mg/dL (7-18); BUN/Creat Ratio 21.9 RATIO (10-20); Calcium,Total 8.7 mg/dL (8.5-10.1); Chloride 111 mmol/L (98-107); Creatinine, Serum 0.78 mg/dL (0.55-1.02); EST Glomerular Filtration Rate 81 mL/min (>60); Est Glom Filt Rate - Afr Amer 98 mL/min (>60); Globulin 2.6 g/dL (2.2-4.2); Glucose 93 mg/dL (74-106); Potassium 3.9 mmol/L (3.5-5.1); Protein, Total 6.4 g/dL (6.4-8.2); Sodium Level 142 mmol/L (136-145)
== END | disposition home or self-care (01) ==
PROVIDERS: PCP Student in an Organized Health Care Education/Training Program; Referring Provider Internal Medicine Rheumatology; Visit Provider Internal Medicine Rheumatology
DX: L40.59 Other psoriatic arthropathy (principal); Z79.899 Other long term (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 therapy; M79.7 Fibromyalgia; M17.0 Bilateral primary osteoarthritis of knee; M18.12 Unilateral primary osteoarthritis of first carpometacarpal joint, left hand; L40.8 Other psoriasis; K21.9 Gastro-esophageal reflux disease without esophagitis; M48.061 Spinal stenosis, lumbar region without neurogenic claudication; M48.02 Spinal stenosis, cervical region; K58.0 Irritable bowel syndrome with diarrhea; N32.81 Overactive bladder; F32.89 Other specified depressive episodes
CPT/HCPCS: 36415; 80053; 85025

== ENCOUNTER → 2024-09-07 | Outpatient (CLI) | payer MEDICARE, SELFPAY ==
[2024-09-07 15:26] LABS: Absolute Lymphocyte Count 2.05 X10^3/uL (0.83-4.51); Absolute Neutrophil Count 2.5 X10^3/uL (2.0-7.7); Basophil# 0.04 X10^3/uL; Basophil% 0.8 % (0-1); Eosinophil# 0.05 X10^3/uL; Hematocrit 43.6 % (37-47); Lymphocyte # 2.05 X10^3/ul (0.83-4.51); Lymphocyte % 40.3 % (19-41); Mean Corp Hgb Conc 32.1 g/dL (32-36); Mean Corpuscular Hgb 31.7 pg (27.0-32.0); Mean Corpuscular Volume 98.6 fL (81-99); Mean Platelet Vol. 10.4 fl (6.2-12.0); Monocyte# 0.46 X10^3/uL; NRBC Flagged by Analyzer 0 % (0-5); Neutrophil # 2.48 X10^3/uL (2.7-7.7); Neutrophil % 48.7 % (47-70); Platelet Count 236 K/mm3 (150-450); RBC Distribution Width CV 13.3 % (11.6-14.6); RBC Distribution Width SD 48.5 fl (35.1-43.9); Red Blood Count 4.42 M/mm3 (4.2-5.4); White Blood Count 5.1 K/mm3 (4.4-11.0)
[2024-09-07 16:14] LABS: ALB/GLOB Ratio 1.6 RATIO (0.9-2.4); AST(SGOT) 19 U/L (15-37); Alanine Aminotransfer ALT/SGPT 24 U/L (13-56); Albumin, Serum 4.4 g/dL (3.2-5.0); Alkaline Phosphatase 78 U/L (45-117); Anion Gap 7 (5-15); BUN 22 mg/dL (7-18); BUN/Creat Ratio 25.7 RATIO (10-20); Calcium,Total 9.3 mg/dL (8.5-10.1); Chloride 107 mmol/L (98-107); Creatinine, Serum 0.86 mg/dL (0.55-1.02); EST Glomerular Filtration Rate 72 mL/min (>60); Est Glom Filt Rate - Afr Amer 87 mL/min (>60); Globulin 2.7 g/dL (2.2-4.2); Glucose 87 mg/dL (74-106); Potassium 3.6 mmol/L (3.5-5.1); Protein, Total 7.1 g/dL (6.4-8.2); Sodium Level 140 mmol/L (136-145)
== END | disposition home or self-care (01) ==
LOC: MTLAB 13:32
PROVIDERS: PCP Student in an Organized Health Care Education/Training Program; Referring Provider Internal Medicine Rheumatology; Visit Provider Internal Medicine Rheumatology
DX: L40.59 Other psoriatic arthropathy (principal); M79.7 Fibromyalgia; Z79.899 Other long term (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 therapy
CPT/HCPCS: 36415; 80053; 85025

== ENCOUNTER → 2024-11-30 | Outpatient (CLI) | payer MEDICARE, SELFPAY ==
[2024-11-30 15:21] LABS: Absolute Lymphocyte Count 2.23 X10^3/uL (0.83-4.51); Absolute Neutrophil Count 3.3 X10^3/uL (2.0-7.7); Basophil# 0.04 X10^3/uL; Basophil% 0.7 % (0-1); Eosinophil# 0.04 X10^3/uL; Eosinophils% 0.7 % (0-5); Hematocrit 40.8 % (37-47); Hemoglobin 13.1 g/dL (12.0-15.0); Lymphocyte # 2.23 X10^3/ul (0.83-4.51); Lymphocyte % 36.9 % (19-41); Mean Corp Hgb Conc 32.1 g/dL (32-36); Mean Corpuscular Hgb 32.3 pg (27.0-32.0); Mean Corpuscular Volume 100.5 fL (81-99); Mean Platelet Vol. 10.6 fl (6.2-12.0); Monocyte# 0.47 X10^3/uL; Monocyte% 7.8 % (0-10); NRBC Flagged by Analyzer 0 % (0-5); Neutrophil # 3.25 X10^3/uL (2.7-7.7); Neutrophil % 53.7 % (47-70); Platelet Count 248 K/mm3 (150-450); RBC Distribution Width SD 48.1 fl (35.1-43.9); Red Blood Count 4.06 M/mm3 (4.2-5.4)
[2024-11-30 15:48] LABS: ALB/GLOB Ratio 1.4 RATIO (0.9-2.4); AST(SGOT) 16 U/L (15-37); Alanine Aminotransfer ALT/SGPT 30 U/L (13-56); Alkaline Phosphatase 74 U/L (45-117); Anion Gap 7 (5-15); BUN 21 mg/dL (7-18); Calcium,Total 9.1 mg/dL (8.5-10.1); Chloride 106 mmol/L (98-107); Creatinine, Serum 0.72 mg/dL (0.55-1.02); EST Glomerular Filtration Rate 87 mL/min (>60); Est Glom Filt Rate - Afr Amer 106 mL/min (>60); Globulin 2.8 g/dL (2.2-4.2); Glucose 80 mg/dL (74-106); Potassium 3.5 mmol/L (3.5-5.1); Protein, Total 6.8 g/dL (6.4-8.2); Sodium Level 143 mmol/L (136-145)
== END | disposition home or self-care (01) ==
LOC: MTLAB 12:57
PROVIDERS: PCP Student in an Organized Health Care Education/Training Program; Referring Provider Internal Medicine Rheumatology; Visit Provider Internal Medicine Rheumatology
DX: L40.59 Other psoriatic arthropathy (principal); M79.7 Fibromyalgia; M17.0 Bilateral primary osteoarthritis of knee; M18.12 Unilateral primary osteoarthritis of first carpometacarpal joint, left hand; Z79.899 Other long term (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 therapy
CPT/HCPCS: 36415; 80053; 85025

== ENCOUNTER → 2025-02-21 | Outpatient (CLI) | payer MEDICARE, SELFPAY ==
[2025-02-21 15:21] LABS: Absolute Lymphocyte Count 1.75 X10^3/uL (0.83-4.51); Absolute Neutrophil Count 2.2 X10^3/uL (2.0-7.7); Basophil# 0.05 X10^3/uL; Basophil% 1.1 % (0-1); Eosinophil# 0.06 X10^3/uL; Eosinophils% 1.3 % (0-5); Hematocrit 37.7 % (37-47); Hemoglobin 12.2 g/dL (12.0-15.0); Lymphocyte # 1.75 X10^3/ul (0.83-4.51); Lymphocyte % 38.3 % (19-41); Mean Corp Hgb Conc 32.4 g/dL (32-36); Mean Corpuscular Hgb 32.7 pg (27.0-32.0); Mean Corpuscular Volume 101.1 fL (81-99); Mean Platelet Vol. 10.4 fl (6.2-12.0); Monocyte# 0.53 X10^3/uL; Monocyte% 11.6 % (0-10); NRBC Flagged by Analyzer 0 % (0-5); Neutrophil # 2.17 X10^3/uL (2.7-7.7); Neutrophil % 47.5 % (47-70); Platelet Count 233 K/mm3 (150-450); RBC Distribution Width CV 13.8 % (11.6-14.6); RBC Distribution Width SD 50.7 fl (35.1-43.9); Red Blood Count 3.73 M/mm3 (4.2-5.4); White Blood Count 4.6 K/mm3 (4.4-11.0)
[2025-02-21 15:51] LABS: ALB/GLOB Ratio 2.1 RATIO (0.9-2.4); AST(SGOT) 23 U/L (<=31); Alanine Aminotransfer ALT/SGPT 30 U/L (<=34); Albumin, Serum 4.4 g/dL (3.4-4.8); Alkaline Phosphatase 73 U/L (35-104); Anion Gap 10 (5-15); BUN 25 mg/dL (4-19); BUN/Creat Ratio 28.8 RATIO (10-20); Calcium,Total 8.9 mg/dL (7.6-11.0); Carbon Dioxide 25.3 mmol/L (21.0-32.0); Chloride 108 mmol/L (98-108); Creatinine, Serum 0.87 mg/dL (0.70-1.20); EST Glomerular Filtration Rate 76 (>60); Glucose 110 mg/dL (70-99); Potassium 3.9 mmol/L (3.3-5.1); Protein, Total 6.4 g/dL (5.9-8.4); Sodium Level 144 mmol/L (133-145); Total Bilirubin 0.23 mg/dL (0.00-1.30)
== END | disposition home or self-care (01) ==
LOC: MTLAB 11:43
PROVIDERS: PCP Student in an Organized Health Care Education/Training Program; Referring Provider Internal Medicine Rheumatology; Visit Provider Internal Medicine Rheumatology
DX: L40.59 Other psoriatic arthropathy (principal); M79.7 Fibromyalgia; M17.0 Bilateral primary osteoarthritis of knee; M18.12 Unilateral primary osteoarthritis of first carpometacarpal joint, left hand; Z79.899 Other long term (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 therapy
CPT/HCPCS: 36415; 80053; 85025

== ENCOUNTER → 2025-05-19 | Outpatient (CLI) | payer MEDICARE, SELFPAY ==
[2025-05-19 18:16] LABS: Hematocrit 39.3 % (37-47); Hemoglobin 13.2 g/dL (12.0-15.0); Immature Granulocytes Count 0.010 X10^3/uL (0.0-0.0); Mean Corp Hgb Conc 33.6 g/dL (32-36); Mean Corpuscular Volume 97.0 fL (81-99); Mean Platelet Vol. 10.7 fl (6.2-12.0); NRBC Flagged by Analyzer 0 % (0-5); Platelet Count 226 K/mm3 (150-450); RBC Distribution Width CV 13.2 % (11.6-14.6); RBC Distribution Width SD 47.1 fl (35.1-43.9); Red Blood Count 4.05 M/mm3 (4.2-5.4); White Blood Count 5.5 K/mm3 (4.4-11.0)
[2025-05-19 18:48] LABS: AST(SGOT) 30 U/L (<=31); Alanine Aminotransfer ALT/SGPT 29 U/L (<=34); Albumin, Serum 4.7 g/dL (3.4-4.8); Alkaline Phosphatase 86 U/L (35-104); Anion Gap 13 (5-15); BUN 23 mg/dL (4-19); BUN/Creat Ratio 29.1 RATIO (10-20); Calcium,Total 9.8 mg/dL (7.6-11.0); Carbon Dioxide 23.4 mmol/L (21.0-32.0); Chloride 108 mmol/L (98-108); Globulin 2.3 g/dL (2.2-4.2); Glucose 108 mg/dL (70-99); Potassium 4.1 mmol/L (3.3-5.1)
== END | disposition home or self-care (01) ==
LOC: MTLAB 14:35
PROVIDERS: PCP Student in an Organized Health Care Education/Training Program; Referring Provider Internal Medicine Rheumatology; Visit Provider Internal Medicine Rheumatology
DX: L40.59 Other psoriatic arthropathy (principal); M79.7 Fibromyalgia; L40.8 Other psoriasis; Z79.899 Other long term (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 therapy
CPT/HCPCS: 36415; 80053; 85025

== ENCOUNTER → 2025-08-12 | Outpatient (CLI) | payer MEDICARE, SELFPAY ==
[2025-08-12 18:52] LABS: Hematocrit 36.2 % (37-47); Hemoglobin 11.9 g/dL (12.0-15.0); Immature Granulocytes Count 0.010 X10^3/uL (0.0-0.0); Mean Corp Hgb Conc 32.9 g/dL (32-36); Mean Corpuscular Volume 100.0 fL (81-99); Mean Platelet Vol. 11.0 fl (6.2-12.0); NRBC Flagged by Analyzer 0 % (0-5); Platelet Count 244 K/mm3 (150-450); RBC Distribution Width CV 13.4 % (11.6-14.6); RBC Distribution Width SD 49.0 fl (35.1-43.9); Red Blood Count 3.62 M/mm3 (4.2-5.4); White Blood Count 5.9 K/mm3 (4.4-11.0)
[2025-08-12 18:54] LABS: AST(SGOT) 23 U/L (<=31); Alanine Aminotransfer ALT/SGPT 22 U/L (<=34); Albumin, Serum 4.2 g/dL (3.4-4.8); Alkaline Phosphatase 85 U/L (35-104); Anion Gap 10 (5-15); BUN 25 mg/dL (4-19); BUN/Creat Ratio 35.2 RATIO (10-20); Calcium,Total 8.6 mg/dL (7.6-11.0); Carbon Dioxide 25.6 mmol/L (21.0-32.0); Chloride 108 mmol/L (98-108); Globulin 2.0 g/dL (2.2-4.2); Glucose 82 mg/dL (70-99); Potassium 4.2 mmol/L (3.3-5.1)
== END | disposition home or self-care (01) ==
LOC: MTLAB 14:10
PROVIDERS: PCP Student in an Organized Health Care Education/Training Program; Referring Provider Internal Medicine Rheumatology; Visit Provider Internal Medicine Rheumatology
DX: L40.59 Other psoriatic arthropathy (principal); M79.7 Fibromyalgia; M17.0 Bilateral primary osteoarthritis of knee; M18.12 Unilateral primary osteoarthritis of first carpometacarpal joint, left hand; Z79.899 Other long term (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 therapy
CPT/HCPCS: 36415; 80053; 85025